=== PATIENT | female | born 1935 | race Caucasian/White ===

== ENCOUNTER → 2019-08-23 14:50 | Outpatient (CLI) | payer MEDICARE, OTHER, SELFPAY ==
[2019-08-23 17:17] LABS: Absolute Lymphocyte Count 1.23 X10^3/uL (0.83-4.51); Absolute Neutrophil Count 5.2 X10^3/uL (2.0-7.7); Basophil# 0.04 X10^3/uL; Basophil% 0.5 % (0-1); Eosinophil# 0.52 X10^3/uL; Eosinophils% 6.6 % (0-5); Hematocrit 33.3 % (37-47); Hemoglobin 10.6 g/dL (12.0-15.0); Lymphocyte # 1.23 X10^3/ul (4.0); Lymphocyte % 15.6 % (19-41); Mean Corp Hgb Conc 31.8 g/dL (32-36); Mean Corpuscular Hgb 27.4 pg (27.0-32.0); Mean Platelet Vol. 9.5 fl (6.2-12.0); Monocyte# 0.87 X10^3/uL; NRBC Flagged by Analyzer 0 % (0-5); Neutrophil # 5.21 X10^3/uL (2.7-7.7); Neutrophil % 65.9 % (47-70); Platelet Count 315 K/mm3 (150-450); RBC Distribution Width CV 13.5 % (11.6-14.6); RBC Distribution Width SD 42.5 fl (35.1-43.9); Red Blood Count 3.87 M/mm3 (4.2-5.4); White Blood Count 7.9 K/mm3 (4.4-11.0)
[2019-08-23 17:46] LABS: ALB/GLOB Ratio 0.6 RATIO (0.9-2.4); AST(SGOT) 19 U/L (15-37); Alanine Aminotransfer ALT/SGPT 22 U/L (13-56); Albumin, Serum 3.1 g/dL (3.2-5.0); Alkaline Phosphatase 136 U/L (45-117); Anion Gap 5 (5-15); BUN 27 mg/dL (7-18); BUN/Creat Ratio 20.5 RATIO (10-20); Calcium,Total 9.5 mg/dL (8.5-10.1); Chloride 104 mmol/L (98-107); Creatinine, Serum 1.32 mg/dL (0.55-1.02); EST Glomerular Filtration Rate 41 mL/min (>60); Est Glom Filt Rate - Afr Amer 49 mL/min (>60); Globulin 4.8 g/dL (2.2-4.2); Glucose 154 mg/dL (74-106); Potassium 3.9 mmol/L (3.5-5.1); Protein, Total 7.9 g/dL (6.4-8.2); Sodium Level 135 mmol/L (136-145); Thyroid Stim Hormone (TSH) 1.24 uIU/mL (0.358-3.74)
[2019-08-23 17:52] LABS: Hemoglobin A1c 8.5 % (4.2-6.3)
[2019-08-23 18:01] LABS: BNP,B-Type NATRIURETIC PEPTIDE 214.5 pg/mL (0-100)
== END ==
PROVIDERS: Family Provider Family Medicine; PCP Family Medicine; Visit Provider Family Medicine
DX: I11.0 Hypertensive heart disease with heart failure (principal); E11.9 Type 2 diabetes mellitus without complications; I50.9 Heart failure, unspecified; I48.0 Paroxysmal atrial fibrillation
CPT/HCPCS: 36415; 80053; 83036; 83880; 84443; 85025

== ENCOUNTER → 2019-09-14 12:34 | Outpatient (CLI) | payer MEDICARE, OTHER, SELFPAY ==
[2019-09-13 14:25] VITALS: BMI 29.4
[2019-09-14 14:52] LABS: AST(SGOT) 14 U/L (15-37); Alanine Aminotransfer ALT/SGPT 18 U/L (13-56); Albumin, Serum 3.5 g/dL (3.2-5.0); Alkaline Phosphatase 131 U/L (45-117); Bilirubin, Direct 0.11 mg/dL (0.00-0.30); Cholesterol 299 mg/dL (200); Globulin 4.3 g/dL (2.2-4.2); High Density Lipoprotein 53 mg/dL; Protein, Total 7.8 g/dL (6.4-8.2); Triglycerides 166 mg/dL; Very Low Density Lipoprotein 33 mg/dL (5-40)
== END ==
PROVIDERS: PCP Family Medicine; Referring Provider Internal Medicine Cardiovascular Disease; Visit Provider Internal Medicine Cardiovascular Disease
DX: I25.10 Atherosclerotic heart disease of native coronary artery without angina pectoris (principal); E78.5 Hyperlipidemia, unspecified
CPT/HCPCS: 36415; 80061; 80076

== ENCOUNTER → 2019-10-03 13:32 | Outpatient (CLI) | payer MEDICARE, OTHER, SELFPAY ==
[2019-09-13 14:25] VITALS: BMI 29.4
--- NOTE | 2019-10-03 13:33 | ECHOD_ITS ---
Reason For Study: TAVR (2017) Procedure This was a 2D Doppler, Color Flow transthoracic echocardiogram. Exam performed in department. Left Ventricle Normal size and thickness. The estimated ejection fraction is 65 %. Septal motion consistent with IVCD. No regional wall motion abnormalities noted. Right Ventricle Normal size and thickness. Normal systolic function. Atria The left atrium is moderately enlarged. Normal right atrium. Normal atrial septum. Mitral Valve Moderate diffuse mitral valve thickening. Mild diffuse mitral valve calcification. Severe mitral annular calcification extending into the posterior leaflet. Moderate mitral valve stenosis. Peak transmitral valve gradient 18 mmHg. Mean transmitral valve gradient 7 mmHg. Mitral valve area. Mild (1+) mitral valve insufficiency. Tricuspid Valve Normal tricuspid valve. Trivial tricuspid valve insufficiency. Right ventricular systolic pressure estimated to be 31 mmHg. Aortic Valve Peak aortic valve gradient 30 mmHg. Mean aortic valve gradient 16 mmHg. Calculated aortic valve area (continuity equation) is 1.8 cm2. Stable appearing bioprosthetic aortic valve apparatus. Pulmonic Valve The pulmonic valve is not well visualized. Great Vessels Calcified aortic root. Normal arch. Normal inferior vena cava. Inferior vena cava collapse with sniff. Pericardium/Pleural No pericardial effusion. MMode/2D Measurements & Calculations LVIDd: 4.6 cm IVSd: 1.1 cm LVOT diam: 2.0 cm LVIDs: 2.6 cm LVPWd: 1.2 cm LVOT area: 3.0 cm2 RVDd: 2.9 cm FS: 44.1 % LA dimension: 4.2 cm LAV(MOD-bp): 55.3 ml LA A4 area: 20.9 cm2 LAV(MOD-bp) Indexed: 32.2 ml/m2 LAV(MOD-sp2): 45.8 ml LAV(MOD-sp4): 61.5 ml RA A4 area: 12.9 cm2 Time Measurements MV dec time: 0.18 sec Doppler Measurements & Calculations MV E max justin: 138.0 cm/sec Lat Peak E' Justin: 6.7 cm/sec Med Peak E' Justin: 3.9 cm/sec MV A max justin: 177.8 cm/sec E/E' lat: 20.6 E/E' med: 35.6 MV E/A: 0.78 MV V2 max: 210.9 cm/sec MV P1/2t max justin: 170.5 cm/sec Ao V2 max: 275.4 cm/sec MV max P.8 mmHg MV P1/2t: 89.0 msec Ao max P.3 mmHg MV V2 mean: 125.2 cm/sec MV dec slope: 561.2 cm/sec2 Ao V2 mean: 189.4 cm/sec MV mean P.3 mmHg Ao mean P.4 mmHg MV V2 VTI: 49.1 cm MVA(P1/2t): 2.5 cm2 Ao V2 VTI: 53.9 cm MVA(VTI): 1.9 cm2 ELLIOT(I,D): 1.8 cm2 ELLIOT(V,D): 1.4 cm2 LV V1 max: 130.8 cm/sec MR max justin: 520.5 cm/sec SV(LVOT): 94.4 ml LV V1 max P.8 mmHg MR max P.4 mmHg LV V1 mean P.9 mmHg LV V1 mean: 91.0 cm/sec LV V1 VTI: 31.0 cm PA V2 max: 90.5 cm/sec TR max justin: 256.6 cm/sec TR max P.3 mmHg Interpretation Summary The estimated ejection fraction is 65 %. The left atrium is moderately enlarged. Moderate mitral valve stenosis. Mitral valve area. Mild (1+) mitral valve insufficiency. Trivial tricuspid valve insufficiency. Right ventricular systolic pressure estimated to be 31 mmHg. Stable appearing and normal functioning bioprosthetic aortic valve apparatus. There is no comparison study available. Ordering Physician: Prem Bashir Referring Physician: Baltazar Saleh Performed By: Blayne Roberts RCS
== END ==
PROVIDERS: PCP Family Medicine; Referring Provider Internal Medicine Cardiovascular Disease; Visit Provider Internal Medicine Cardiovascular Disease
DX: I25.10 Atherosclerotic heart disease of native coronary artery without angina pectoris (principal); I11.0 Hypertensive heart disease with heart failure; I50.30 Unspecified diastolic (congestive) heart failure; I48.0 Paroxysmal atrial fibrillation; E11.59 Type 2 diabetes mellitus with other circulatory complications; Z95.2 Presence of prosthetic heart valve
CPT/HCPCS: 93306

== ENCOUNTER → 2020-09-05 11:47 | Outpatient (CLI) | payer MEDICARE, OTHER, SELFPAY ==
[2020-09-05 11:47] VITALS: BMI 29.4
[2020-09-05 12:43] LABS: Absolute Lymphocyte Count 1.19 X10^3/uL (0.83-4.51); Absolute Neutrophil Count 6.3 X10^3/uL (2.0-7.7); Basophil# 0.06 X10^3/uL; Basophil% 0.7 % (0-1); Eosinophil# 0.18 X10^3/uL; Eosinophils% 2.1 % (0-5); Hematocrit 38.1 % (37-47); Hemoglobin 12.9 g/dL (12.0-15.0); Lymphocyte # 1.19 X10^3/ul (4.0); Lymphocyte % 13.9 % (19-41); Mean Corp Hgb Conc 33.9 g/dL (32-36); Mean Corpuscular Hgb 28.9 pg (27.0-32.0); Mean Corpuscular Volume 85.2 fL (81-99); Mean Platelet Vol. 10.9 fl (6.2-12.0); Monocyte# 0.83 X10^3/uL; Monocyte% 9.7 % (0-10); NRBC Flagged by Analyzer 0 % (0-5); Neutrophil # 6.28 X10^3/uL (2.7-7.7); Neutrophil % 73.2 % (47-70); Platelet Count 214 K/mm3 (150-450); RBC Distribution Width CV 13.5 % (11.6-14.6); RBC Distribution Width SD 41.8 fl (35.1-43.9); Red Blood Count 4.47 M/mm3 (4.2-5.4); White Blood Count 8.6 K/mm3 (4.4-11.0)
[2020-09-05 13:16] LABS: Vitamin B12 > 2000 pg/mL (211-911)
[2020-09-05 13:20] LABS: ALB/GLOB Ratio 0.8 RATIO (0.9-2.4); AST(SGOT) 14 U/L (15-37); Alanine Aminotransfer ALT/SGPT 21 U/L (13-56); Albumin, Serum 3.3 g/dL (3.2-5.0); Alkaline Phosphatase 172 U/L (45-117); Anion Gap 6 (5-15); BUN 35 mg/dL (7-18); BUN/Creat Ratio 25.5 RATIO (10-20); Calcium,Total 9.2 mg/dL (8.5-10.1); Chloride 106 mmol/L (98-107); Creatinine, Serum 1.37 mg/dL (0.55-1.02); EST Glomerular Filtration Rate 39 mL/min (>60); Est Glom Filt Rate - Afr Amer 47 mL/min (>60); Ferritin 187 ng/mL (8-252); Globulin 4.2 g/dL (2.2-4.2); Glucose 244 mg/dL (74-106); Iron 54 ug/dL (50-170); Protein, Total 7.5 g/dL (6.4-8.2); Sodium Level 138 mmol/L (136-145); Thyroid Stim Hormone (TSH) 1.23 uIU/mL (0.358-3.74)
[2020-09-07 14:09] LABS: Alkaline Phosphatase, Serum 152 IU/L (39-117); Bone Fraction 22 % (14-68); Liver Fraction 46 % (18-85)
[2020-09-07 20:42] LABS: Intestinal Fraction 31 % (0-18)
== END ==
PROVIDERS: PCP Family Medicine; Visit Provider Family Medicine
DX: E11.65 Type 2 diabetes mellitus with hyperglycemia (principal); I10 Essential (primary) hypertension; D64.9 Anemia, unspecified; E78.5 Hyperlipidemia, unspecified; R74.8 Abnormal levels of other serum enzymes
CPT/HCPCS: 36415; 80053; 82607; 82728; 83540; 84075; 84080; 84443; 85025

== ENCOUNTER 2021-09-17 12:22 | Inpatient (IN) | payer MEDICARE, OTHER, SELFPAY ==
[2021-09-17] VITALS (8 sets, daily range): BP systolic 143–176; BP diastolic 78–96; PULSE 84–90; RESP 14–20; TEMP 35.9–36.9; O2SAT 93–96; BMI 29.5; BMI 29.0
--- NOTE | 2021-09-17 13:48 | EKG12_ITS ---
Test Reason : CP Blood Pressure : / mmHG Vent. Rate : 088 BPM Atrial Rate : 088 BPM P-R Int : 198 ms QRS Dur : 068 ms QT Int : 376 ms P-R-T Axes : 036 -46 063 degrees QTc Int : 454 ms Normal sinus rhythm Left axis deviation Abnormal ECG Confirmed by DEYA ARMENTA, JANELLE ([id number]), graphic editor SARAH GAVIRIA ([id number]) on 09/19/2021 10:57:40 AM Referred By: JEY/YEIMI Confirmed By:JATIN FALK MD
--- NOTE | 2021-09-17 13:48 | ED.VIS.CHEST ---
HPI History of Present Illness Chief Complaint: Chest Pain Informant: patient Narrative Narrative: 86-year-old female with a history of aortic valve replacement, CHF presenting to the emergency department with chest pain. Patient states that around 10 this morning she developed a pressure in her chest that radiated up to her jaw. She notes that she was short of breath with it. She tried to do her grocery shopping at [employer] but seem to get worse. Since arriving in the emergency department her symptoms have resolved. The patient states that she has had a stress test in the past that was negative but has not had a heart catheterization. In 2017 the patient actually did have a heart catheterization as part of the preoperative work-up for her valve replacement which showed mild luminal irregularities. [facility] Medical History Aortic stenosis Atherosclerosis of coronary artery of [place] heart without angina pectoris Bilateral carotid artery stenosis Chronic kidney disease, stage 3 Chronic venous insufficiency Diabetes mellitus Diastolic CHF Hyperlipidemia Hypertension associated with diabetes Nonrheumatic mitral valve stenosis with insufficiency Paroxysmal atrial fibrillation Renal artery stenosis Home Medications aspirin 81 mg PO DAILY@0800 04/21/17 [History Last Taken 09/17/21] metoprolol tartrate 50 mg PO BID 04/21/17 [History Last Taken 09/17/21] amlodipine 10 mg PO QHS 04/28/17 [History Last Taken 09/16/21] apixaban 2.5 mg tablet 2.5 mg PO BID 09/07/19 [History Last Taken 09/17/21] losartan 50 mg tablet 50 mg PO DAILY 09/07/19 [History Last Taken 09/17/21] furosemide 40 mg PO QHS 09/17/21 [History Last Taken 09/17/21] Allergy/AdvReac Type Severity Reaction Status Date / Time No Known Allergies Allergy Verified 09/17/21 12:24 Family History (Updated 09/17/21 @ 16:04 by Alyssa Quintana MERCHANDISE SUPERVISOR, MERCHANDISE SUPERVISOR-C) Sister Asthma Breast cancer Hypertension Hyperlipidemia Melanoma Father , From old age per patient. Denies specific medical problems. No problems noted. Mother , From old age per patient. Denies specific medical problems. No problems noted. Surgical History History of appendectomy History of left heart catheterization S/P TAVR (transcatheter aortic valve replacement) (05/18/17) Social History (Updated 09/17/21 @ 16:05 by Alyssa Quintana NP, MERCHANDISE SUPERVISOR-C) current gender identity: female Smoking Status: Never smoker alcohol intake: never substance use type: does not use ROS ROS ED Constitutional Constitutional ED: Denies chills, fever(s) or weight loss Eyes Eyes: Denies change in vision or diplopia ENT ENT ED: Denies ear pain, rhinorrhea or sore throat Cardiovascular Cardiovascular: Reports chest pain; Denies orthopnea, palpitations or racing heartbeat Respiratory/Chest Respiratory/Chest: Reports dyspnea; Denies cough or orthopnea Gastrointestinal Gastrointestinal: Denies abdominal pain, diarrhea, nausea or vomiting Genitourinary Genitourinary ED: Denies dysuria, hematuria or urinary frequency Musculoskeletal Musculoskeletal: Reports neck pain; Denies arthralgias or myalgias Integumentary Denies abscess or rash Neurologic Neurologic: Denies headache(s) or weakness Psychiatric Psychiatric: Denies anxiety, depression, suicidal ideation or suicidal thoughts Endocrine Endocrinology: Denies polydipsia, polyphagia or polyuria Allergic/Immunologic Allergic/Immunologic ED: Denies mouth swelling, tongue swelling or urticaria EXAM Physical Exam Const Vital Signs: 09/17/21 12:23 09/17/21 13:59 09/17/21 14:01 Temperature 96.6 F L Temperature Source Temporal Pulse Rate 90 87 Respiratory Rate 20 H 14 Respiratory Effort Normal Non-Labored Blood Pressure 171/78 H 176/91 H Blood Pressure Mean 109 119 Pulse Ox 93 93 Oxygen Delivery Method Room Air Positive well nourished, well developed and obese General Appearance ED: well developed Nutritional Appearance: obese HEENT Reports normocephalic, head/scalp atraumatic, TM's clear and moist mucous membranes normocephalic and atraumatic Tympanic Membrane ED: Yes TM's clear Eyes PERRL and EOMs intact bilaterally Neck no lymphadenopathy, supple and no JVD Resp normal respiratory effort and clear to auscultation bilaterally Cardio regular rate, regular rhythm and no murmurs GI normal to inspection, nondistended, normoactive bowel sounds and non-tender Palpation: soft Back/Spine no CVA tenderness and normal ROM Extremity normal to inspection General Extremety ED: Negative for edema General Extremity: Negative for edema Neuro oriented x3 and CN's II-XII intact bilaterally Sensorium / Orientation: alert Motor Exam: strength 5/5 throughout Psych mental status grossly normal Mood & Affect: Negative for depressed or tearful Skin no rashes or lesions noted and no wounds MDM MDM MDM Narrative Medical decision making narrative: My interpretation of the chest x-ray is mild vascular congestion white count at 8 hemoglobin 12.8 and platelets are 225. BUN of 38 with a creatinine 1.53. Initial high-sensitivity troponin is 89. I spoke with Dr. López from cardiology who recommends a delta troponin and a CTA of the chest. Delta troponin was obtained and is now 672 most likely representing an NSTEMI. CTA of the chest does not demonstrate any pulmonary embolism or dissection. Patient has received aspirin will be placed on a heparin drip. Lab Data Attestation: I reviewed the patient's lab results. Labs: Laboratory Results - last 24 hr 09/17/21 09/17/21 09/17/21 12:30 12:30 14:41 WBC 8.0 RBC 4.51 Hgb 12.5 Hct 38.1 MCV 84.5 MCH 27.7 MCHC 32.8 RDW Std Deviation 43.0 RDW Coeff of Jesi 13.9 Plt Count 225 MPV 10.3 Immature Gran % (Auto) 0.200 Neut % (Auto) 68.2 Lymph % (Auto) 16.7 L [place] % (Auto) 10.2 H Eos % (Auto) 4.2 Baso % (Auto) 0.5 Absolute Neuts (auto) 5.5 Absolute Lymphs (auto) 1.34 Nucleated RBC % 0 Sodium 137 Potassium 3.8 Chloride 106 Carbon Dioxide 22.0 Anion Gap 9 BUN 38 H Creatinine 1.53 H Estim Creat Clear Calc 19.55 Est GFR (MDRD) Af Amer 41 L Est GFR (MDRD) Non-Af 34 L BUN/Creatinine Ratio 24.8 H Glucose 227 H Calcium 8.9 Troponin I High Sens 89 H 672 H* Radiography Diagnostic Testing: Clinical Impression(s) from Imaging Studies Chest X-Ray 09/17/21 14:05 IMPRESSION: Mild degree of vascular congestion. Electronically Signed: Randolph Fallon MD at 14:18 EST , Chest CTA 09/17/21 14:43 IMPRESSION: Prior aortic valve replacement. Mild scarring at the lung bases. No evidence of pleural embolism. Electronically Signed: Randolph Fallon MD at 15:17 EST , EKG Initial EKG: Attestation: I personally reviewed and interpreted this EKG as follows: Comments: Normal sinus rhythm with a ventricular rate of 88 bpm. Follow-up EKG: Attestation: I personally reviewed and interpreted this EKG as follows: Comments: Sinus rhythm with a first-degree AV block with a ventricular rate of 88 bpm. Comparing the T waves on the first EKG to the second it is a little worrisome for hyperacute T waves. Critical Care Time Critical Care Time: Yes Critical care time (excluding procedures): 30-74 minutes (35 min), Including time spent:, Discussing w/Patient &/or Family/Player Development Manager, Discussing w/Consultants, Arranging Admission or Transfer and Performing Direct Patient Care at Bedside Discharge Plan Dx/Rx/DC Orders Clinical Impression: Diabetes mellitus, Hyperlipidemia, S/P TAVR (transcatheter aortic valve replacement), Chronic kidney disease, stage 3, Non-ST elevation LA (NSTEMI) Disposition Disposition: Acute Care [facility]
[2021-09-17 14:00] LABS: Absolute Lymphocyte Count 1.34 X10^3/uL (0.83-4.51); Absolute Neutrophil Count 5.5 X10^3/uL (2.0-7.7); Basophil# 0.04 X10^3/uL; Basophil% 0.5 % (0-1); Eosinophil# 0.34 X10^3/uL; Eosinophils% 4.2 % (0-5); Hematocrit 38.1 % (37-47); Hemoglobin 12.5 g/dL (12.0-15.0); Lymphocyte # 1.34 X10^3/ul (0.83-4.51); Lymphocyte % 16.7 % (19-41); Mean Corp Hgb Conc 32.8 g/dL (32-36); Mean Corpuscular Hgb 27.7 pg (27.0-32.0); Mean Corpuscular Volume 84.5 fL (81-99); Mean Platelet Vol. 10.3 fl (6.2-12.0); Monocyte# 0.82 X10^3/uL; Monocyte% 10.2 % (0-10); NRBC Flagged by Analyzer 0 % (0-5); Neutrophil # 5.46 X10^3/uL (2.7-7.7); Neutrophil % 68.2 % (47-70); Platelet Count 225 K/mm3 (150-450); RBC Distribution Width CV 13.9 % (11.6-14.6); Red Blood Count 4.51 M/mm3 (4.2-5.4)
--- NOTE | 2021-09-17 14:05 | RAD_ITS ---
STUDY: X-RAY CHEST REASON FOR EXAM: Female, 86 years old. Chest pain TECHNIQUE: Single AP portable view of the chest. COMPARISON: Comparison is made with prior study dated 05/01/2017. FINDINGS: EKG electrodes are seen. Mild degree of vascular congestion. There is no demonstrated pleural abnormality. Normal size heart. Normal mediastinum and noble. Normal visualized pulmonary arteries. There is atherosclerotic calcification of the aortic arch with tortuosity. There are diffuse degenerative changes of the visualized thoracic spine. Normal visualized ribs, clavicles, and shoulders. There is no demonstrated abnormality of the visualized soft tissue structures of the upper abdomen. RAD/Chest 1 View (Portable) IMPRESSION: Mild degree of vascular congestion. Electronically Signed: Randolph Fallon MD at 14:18 EST ,
[2021-09-17 14:17] LABS: Anion Gap 9 (5-15); BUN 38 mg/dL (7-18); BUN/Creat Ratio 24.8 RATIO (10-20); Calcium,Total 8.9 mg/dL (8.5-10.1); Chloride 106 mmol/L (98-107); Creatinine, Serum 1.53 mg/dL (0.55-1.02); EST Glomerular Filtration Rate 34 mL/min (>60); Est Glom Filt Rate - Afr Amer 41 mL/min (>60); Estimated Creatinine Clearance 19.55 ml/min; Glucose 227 mg/dL (74-106); Potassium 3.8 mmol/L (3.5-5.1); Sodium Level 137 mmol/L (136-145); Troponin-I HS 89 pg/mL (3.0-54.0)
[2021-09-17] MEDS: Aspirin 325 MG Tablet PO (14:38)
--- NOTE | 2021-09-17 14:43 | CT_ITS ---
STUDY: CTA CHEST REASON FOR EXAM: Female, 86 years old. Pulmonary embolism RADIATION DOSAGE (If Supplied By Facility): CTDIvol = ( 9.475 ) mGy, DLP = ( 330.65 ) mGycm TECHNIQUE: The examination was performed with the intravenous administration of IV 100mL [id number]-[id number]. Post-processing of the angiographic images was performed, with multiplanar reformation and 3D reconstruction. Individualized dose optimization techniques were used for this CT. COMPARISON: Comparison is made with prior study dated 04/21/2017. FINDINGS: Normal enhancement of the main pulmonary artery and right and left pulmonary arteries. Normal enhancement of the bilateral peripheral pulmonary arteries. There is no demonstrated pulmonary embolism. There is atherosclerotic calcification of the aortic arch with tortuosity. There is no demonstrated aortic dissection. Prior aortic valve replacement. There are calcifications of the coronary arteries. There are visualized mediastinal lymph nodes, which are within normal size limits, and with normal morphology. Calcified pretracheal lymph node. There are calcified bilateral hilar lymph nodes. Normal visualized trachea and bronchi. The lungs are well expanded. Mild degree of scarring in the lower lobes. No focal infiltrate is seen. Calcified granulomas in the right. Normal pleura. Normal chest wall structures. There are degenerative changes of thoracic spine. Small hiatal hernia. Calcified splenic granulomas. CT/CTA Chest W/WO Contrast IMPRESSION: Prior aortic valve replacement. Mild scarring at the lung bases. No evidence of pleural embolism. Electronically Signed: Randolph Fallon MD at 15:17 EST ,
[2021-09-17 15:10] LABS: Troponin-I HS 672 pg/mL (3.0-54.0)
--- NOTE | 2021-09-17 15:18 | EKG12_ITS ---
Test Reason : REPEAT Blood Pressure : / mmHG Vent. Rate : 088 BPM Atrial Rate : 088 BPM P-R Int : 212 ms QRS Dur : 068 ms QT Int : 392 ms P-R-T Axes : 023 -42 048 degrees QTc Int : 474 ms Sinus rhythm with 1st degree A-V block Left axis deviation Abnormal ECG Confirmed by DEYA ARMENTA, JANELLE ([id number]), medical editor SARAH GAVIRIA ([id number]) on 09/19/2021 10:57:56 AM Referred By: JEY Confirmed By:JATIN FALK MD
--- NOTE | 2021-09-17 16:00 | PCM.HP.STD ---
Documented by User: Alyssa Quintana NP, PATIENT SERVICES COORDINATOR-C 09/17/21 16:25 HPI - General HPI Narrative PHUC AIKEN, is a 86 F who presents to the emergency room due to chest pain. Patient states her and her were going to the grocery store when she developed chest pain with ambulation. She describes associated shortness of breath. She denies nausea, diaphoresis. She states her symptoms improved with rest however did not dissipate entirely. She denies history of similar symptoms. She states chest pain radiated to her jaw. She denies other associated symptoms or complaints. Upon examination in the emergency room she denies further chest pain. She has a past medical history of type 2 diabetes mellitus, hypertension, paroxysmal atrial fibrillation, hyperlipidemia, aortic stenosis with history of TAVR in 2017, nonobstructive CAD, chronic kidney disease stage IIIb. [facility] Medical History Aortic stenosis Atherosclerosis of coronary artery of [place] heart without angina pectoris Bilateral carotid artery stenosis Chronic kidney disease, stage 3 Chronic venous insufficiency Diabetes mellitus Diastolic CHF Hyperlipidemia Hypertension associated with diabetes Nonrheumatic mitral valve stenosis with insufficiency Paroxysmal atrial fibrillation Renal artery stenosis Home Medications aspirin 81 mg PO DAILY@0800 04/21/17 [History Last Taken 09/17/21] metoprolol tartrate 50 mg PO BID 04/21/17 [History Last Taken 09/17/21] amlodipine 10 mg PO QHS 04/28/17 [History Last Taken 09/16/21] apixaban 2.5 mg tablet 2.5 mg PO BID 09/07/19 [History Last Taken 09/17/21] losartan 50 mg tablet 50 mg PO DAILY 09/07/19 [History Last Taken 09/17/21] furosemide 40 mg PO QHS 09/17/21 [History Last Taken 09/17/21] Allergy/AdvReac Type Severity Reaction Status Date / Time No Known Allergies Allergy Verified 09/17/21 12:24 Family History (Updated 09/17/21 @ 16:04 by Alyssa Quintana NP, PATIENT SERVICES COORDINATOR-C) Sister Asthma Breast cancer Hypertension Hyperlipidemia Melanoma Father , From old age per patient. Denies specific medical problems. No problems noted. Mother , From old age per patient. Denies specific medical problems. No problems noted. Surgical History History of appendectomy History of left heart catheterization S/P TAVR (transcatheter aortic valve replacement) (05/18/17) Social History (Updated 09/17/21 @ 16:05 by Alyssa Quintana NP, PATIENT SERVICES COORDINATOR-C) current gender identity: female Smoking Status: Never smoker alcohol intake: never substance use type: does not use ROS Constitutional Constitutional: Denies change in weight, chills, fatigue, fever(s) or weakness Cardiovascular Cardiovascular: Reports chest pain; Denies edema, lightheadedness, palpitations or syncope Respiratory/Chest Respiratory/Chest: Reports shortness of breath with exertion; Denies cough, dyspnea, productive cough, shortness of breath at rest or wheezing Gastrointestinal Gastrointestinal: Denies abdominal pain, constipation, diarrhea, nausea or vomiting Genitourinary Genitourinary: Denies burning urination, difficulty urinating, dysuria, hematuria, urinary frequency, urinary incontinence or urinary urgency Musculoskeletal Musculoskeletal: Denies back pain, joint pain or muscle weakness Integumentary Integumentary: Denies erythema, lesions, rash or wounds Neurologic Neurologic: Denies abnormal speech, confusion, dizziness, focal weakness, numbness, paresthesias, seizure-like activity or syncope Psychiatric Psychiatric: Denies anxiety or depression Hematologic/Lymphatic Hematologic/Lymphatic: Denies anemia, easy bleeding or easy bruising Allergic/Immunologic Allergic/Immunologic: Denies hives or asthma Vital Signs Vital Signs Vital Signs: 09/17/21 12:23 09/17/21 13:59 09/17/21 14:01 Temperature 96.6 F L Temperature Source Temporal Pulse Rate 90 87 Respiratory Rate 20 H 14 Respiratory Effort Normal Non-Labored Blood Pressure 171/78 H 176/91 H Blood Pressure Mean 109 119 Pulse Ox 93 93 Oxygen Delivery Method Room Air Weight Weight: 156 lb Body Mass Index (BMI) 29.5 Physical Exam Const alert, oriented x3 and no apparent distress Orientation / Consciousness: awake, oriented to person, oriented to place and oriented to time HEENT normocephalic and moist oral mucous membranes Eyes PERRL, EOMs intact bilaterally and conjunctivae normal Neck no lymphadenopathy Resp normal respiratory effort and clear to auscultation bilaterally Cardio regular rate, regular rhythm and no murmurs Peripheral Pulses: pulses 2+ throughout GI normal to inspection, nondistended, normoactive bowel sounds, non-tender and non-distended Extremity normal to inspection Skin no rashes or lesions noted Lesions: no lesions Rashes: no rashes Trauma: no lacerations or abrasions Neuro CN's II-XII intact bilaterally, no focal motor deficits, no sensory deficits noted and deep tendon reflexes 2+ bilaterally Psych mental status grossly normal and affect normal Results Lab / Micro Data Result Diagrams: 09/17/21 12:30 09/17/21 12:30 Labs: Laboratory Results - last 24 hr 09/17/21 12:30: WBC 8.0, RBC 4.51, Hgb 12.5, Hct 38.1, MCV 84.5, MCH 27.7, MCHC 32.8, RDW Std Deviation 43.0, RDW Coeff of Jesi 13.9, Plt Count 225, MPV 10.3, Immature Gran % (Auto) 0.200, Neut % (Auto) 68.2, Lymph % (Auto) 16.7 L, [place] % (Auto) 10.2 H, Eos % (Auto) 4.2, Baso % (Auto) 0.5, Absolute Neuts (auto) 5.5, Absolute Lymphs (auto) 1.34, Nucleated RBC % 0 09/17/21 12:30: Sodium 137, Potassium 3.8, Chloride 106, Carbon Dioxide 22.0, Anion Gap 9, BUN 38 H, Creatinine 1.53 H, Estim Creat Clear Calc 19.55, Est GFR (MDRD) Af Amer 41 L, Est GFR (MDRD) Non-Af 34 L, BUN/Creatinine Ratio 24.8 H, Glucose 227 H, Calcium 8.9, Troponin I High Sens 89 H 09/17/21 14:41: Troponin I High Sens 672 H* Radiology Impression Chest X-Ray 09/17/21 14:05 IMPRESSION: Mild degree of vascular congestion. Electronically Signed: Randolph Fallon MD at 14:18 EST , Chest CTA 09/17/21 14:43 IMPRESSION: Prior aortic valve replacement. Mild scarring at the lung bases. No evidence of pleural embolism. Electronically Signed: Randolph Fallon MD at 15:17 EST , Assessment & Plan Assessment/Plan (1) Non-ST elevation NV (NSTEMI): PLAN: 1. NSTEMI, chest pain-trend enzymes. Heparin drip, aspirin. Hold Eliquis. Continue beta-margo/ARB. Consult cardiology. Obtain echo. 2. Aortic stenosis with history of TAVR in 2017 3. Type 2 diabetes [id number] with sliding scale insulin. Check A1c. 4. Hypertension-elevated on admission. Continue amlodipine, losartan, metoprolol. As needed hydralazine for systolic blood pressure greater than 160. 5. Hyperlipidemia-not on statin. Lipid profile in a.m. 6. Paroxysmal atrial fibrillation-on metoprolol, eliquis. 7. Nonobstructive CAD- per heart cath in 2017. 8. Chronic kidney disease stage IIIb- at baseline, trend BMP. DVT prophylaxis-heparin drip, Eliquis on hold This patient was seen by THEODORA Giordano under the supervision of Dr. Trotter. Time spent examining patient, reviewing data and subsequent management of care: 16 Minutes Documented by User: Dr. Samanta Trotter MD 09/17/21 16:41 HPI - General General Date of Admission: 09/17/21 [facility] Medical History Aortic stenosis Atherosclerosis of coronary artery of [place] heart without angina pectoris Bilateral carotid artery stenosis Chronic kidney disease, stage 3 Chronic venous insufficiency Diabetes mellitus Diastolic CHF Hyperlipidemia Hypertension associated with diabetes Nonrheumatic mitral valve stenosis with insufficiency Paroxysmal atrial fibrillation Renal artery stenosis Home Medications aspirin 81 mg PO DAILY@0800 04/21/17 [History Last Taken 09/17/21] metoprolol tartrate 50 mg PO BID 04/21/17 [History Last Taken 09/17/21] amlodipine 10 mg PO QHS 04/28/17 [History Last Taken 09/16/21] apixaban 2.5 mg tablet 2.5 mg PO BID 09/07/19 [History Last Taken 09/17/21] losartan 50 mg tablet 50 mg PO DAILY 09/07/19 [History Last Taken 09/17/21] furosemide 40 mg PO QHS 09/17/21 [History Last Taken 09/17/21] Allergy/AdvReac Type Severity Reaction Status Date / Time No Known Allergies Allergy Verified 09/17/21 12:24 Family History (Updated 09/17/21 @ 16:04 by Alyssa Quintana NP, PATIENT SERVICES COORDINATOR-C) Sister Asthma Breast cancer Hypertension Hyperlipidemia Melanoma Father , From old age per patient. Denies specific medical problems. No problems noted. Mother , From old age per patient. Denies specific medical problems. No problems noted. Surgical History History of appendectomy History of left heart catheterization S/P TAVR (transcatheter aortic valve replacement) (05/18/17) Social History (Updated 09/17/21 @ 16:05 by Alyssa Quintana NP, PATIENT SERVICES COORDINATOR-C) current gender identity: female Smoking Status: Never smoker alcohol intake: never substance use type: does not use Results Lab / Micro Data Result Diagrams: 09/17/21 12:30 09/17/21 12:30 Charges/Coding Addendum Addendum: This patient was seen in conjunction with Prem Negrete NP. I have independently interviewed and examined the patient and reviewed pertinent historical, laboratory, and other data. I have reviewed her note and concur with her documentation 86-year-old female with past medical history of recent TAVR, chronic heart failure preserved EF, EF 55%, paroxysmal atrial fibrillation, hypertension, type II DM who comes in with complaints of substernal chest discomfort, dull, dull Hypertension today was going grocery shopping. She stated that as soon as she had gone to [facility], she started having chest pain that lasted for a few minutes. It went away and recurred a short while later and made her come to the ED. she denied any diaphoresis or dizziness or palpitation. She admitted to some associated shortness of breath. Her last cardiac cath in 2017 showed minimal luminal irregularities. Patient follows with a test boring crew chief in the [facility]. At the time of being seen, he denied being in pain, no dizziness, palpitations. Physical Exam: Gen: Comfortable, not pale, not jaundiced CVS:HS I +II, regular, no murmurs RESP: Diminished at lung bases with bilateral fine crackles GI: BS present and normal, soft, nontender, no palpable organs EXT:No edema Labs:CBCD is unremarkable, creatinine is 1.53, baseline of 1.3, Troponin is 672. EKG shows normal sinus rhythm, no acute ST-T changes ASSESSMENT: 1. Acute NSTEMI 2. Uncontrolled HTN 3. H/o TAVR 4. Chronic diastolic CHF, EF 65% Plan: I discussed and explained in details the various types of CODE STATUS-full code, DNR CCA, DNR CC. Patient chose to be full code and wants everything done to keep her alive.Time spent discussing CODE STATUS 16 minutes Time spent taking patient's history, physical examination, coordinating patient's care, discussing with nursing, including discussing code status: 55 minutes Visit Charges Inpatient E&M: 37330 Init Hosp L3 Procedures Hospitalists Procedures: 10300 Advncd Care Plan 30 Min
--- NOTE | 2021-09-17 16:16 | ECHOD_ITS ---
Reason For Study: NSTEMI Procedure This was a 2D Doppler, Color Flow transthoracic echocardiogram. Exam performed portable in patient room. Left Ventricle Normal LV size. The estimated ejection fraction is 45 %. Moderate segmental systolic dysfunction (see wall motion). [place] : Akinetic. Mid-anteroseptal : Hypokinetic. Right Ventricle Normal RV size. Normal systolic function. Atria The left atrium is mildly enlarged. Normal right atrium. Mitral Valve There is moderate to severe mitral annular calcification. Moderate (2+) eccentric mitral valve insufficiency. Tricuspid Valve Normal tricuspid valve. Pulmonary artery systolic pressure is 45 mmHg. Aortic Valve Peak aortic valve gradient 16 mmHg. Mean aortic valve gradient 9 mmHg. Bioprosthetic aortic valve. Small echo-free space noted in the sinus of Valsalva outside of the bioprosthetic valve struts. Pericardium/Pleural No pericardial effusion. MMode/2D Measurements & Calculations LVIDd: 4.3 cm IVSd: 1.0 cm LVOT diam: 1.8 cm LVIDs: 2.6 cm LVPWd: 1.1 cm LVOT area: 2.6 cm2 RVDd: 2.8 cm FS: 38.6 % Ao root diam: 3.7 cm LAV(MOD-bp): 71.7 ml LVAd ap4: 23.4 cm2 LAV(MOD-bp) Indexed: 42.2 ml/m2 LVLd ap4: 7.0 cm LAV(MOD-sp2): 64.7 ml EDV(MOD-sp4): 63.8 ml LAV(MOD-sp4): 72.3 ml EDV(sp4-el): 66.2 ml LVAs ap4: 15.0 cm2 LVLs ap4: 6.1 cm ESV(MOD-sp4): 29.1 ml ESV(sp4-el): 31.3 ml EF(MOD-sp4): 54.3 % EF(sp4-el): 52.7 % SV(MOD-sp4): 34.6 ml SV(sp4-el): 34.9 ml LVAd ap2: 19.7 cm2 LVLd ap2: 6.9 cm EDV(MOD-sp2): 46.6 ml EDV(sp2-el): 47.6 ml LA dimension(2D): 3.9 cm LA A4 area: 22.0 cm2 RA A4 area: 15.6 cm2 Doppler Measurements & Calculations MV E max justin: 194.0 cm/sec Lat Peak E' Justin: 3.0 cm/sec Med Peak E' Justin: 2.9 cm/sec MV A max justin: 112.1 cm/sec E/E' lat: 63.9 E/E' med: 66.8 MV E/A: 1.7 MV V2 max: 216.6 cm/sec Ao V2 max: 194.4 cm/sec LV V1 max: 103.9 cm/sec MV max P.8 mmHg Ao max P.5 mmHg LV V1 max P.4 mmHg MV V2 mean: 130.0 cm/sec Ao V2 mean: 135.7 cm/sec LV V1 mean P.3 mmHg MV mean P.4 mmHg Ao mean P.0 mmHg LV V1 mean: 71.3 cm/sec MV V2 VTI: 58.5 cm Ao V2 VTI: 44.3 cm LV V1 VTI: 23.8 cm MVA(VTI): 1.0 cm2 ELLIOT(I,D): 1.4 cm2 ELLIOT(V,D): 1.4 cm2 SV(LVOT): 61.4 ml PA V2 max: 88.4 cm/sec TR max justin: 318.1 cm/sec TR max P.5 mmHg MV P1/2t-pr_phl: 113.1 msec ECHO/Echo Complete Interpretation Summary Normal LV size. The estimated ejection fraction is 45 %. Moderate segmental systolic dysfunction (see wall motion). There is moderate to severe mitral annular calcification. Moderate (2+) eccentric mitral valve insufficiency. Bioprosthetic aortic valve. Small echo-free space noted in the sinus of Valsalva outside of the bioprosthet ic valve struts. Ordering Physician: Alyssa Quintana Referring Physician: JESSICA FONSECA Performed By: Evelyne Pedraza, RDCS, RVT
--- NOTE | 2021-09-17 16:20 | CASEMGMT ---
BROWN CM to room to meet with patient for initial transition planning/care coordination assessment. BROWN SUMMERS introduced self and role at [facility]. Patient voices understanding and consents to assessment at this time. Patient's Martínez present at bedside. Patient is alert and oriented and answers all questions appropriately, sitting up on ER cart in no apparent distress. Care providers, pharmacy, and demographics verified/updated at this time. Admitting Dx: NSTEMI PCP: Baltazar Saleh Specialists: Alfreda- cardiology ([facility]) Preferred Pharmacy: [facility] Insurance: MCR A/B & [employer] Prescription Benefit: yes Living Will/HPOA: Patient denies having a living will or HPOA. LNOK: Martínez Morton and son Chris Figueroa Living Arrangements: Patient lives with in two story house with 10-12 steps to enter the home. Patient states independent with ADLs prior to hospitalization. Smoking/ETOH: Never smoker, denies ETOH use Transportation: Patient drives self and denies transportation concerns. DME/HHC/SNF: Patient typically ambulates independently without the use of an assistive device. Patient has a walker, cane and glucometer with testing supplies available in the home. Denies need for other DME at this time. Denies previous HHC or SNF stays. Patient takes Rx Eliquis prior to hospital admission. Patient has no concerns with going home at time of discharge. CM to follow for any discharge planning/needs. Patient voices no concerns/needs at this time. Advised patient to ask for CM if any questions/concerns/needs arise. Voices understanding. Plan: home
--- NOTE | 2021-09-17 16:20 | EKG12_ITS ---
Test Reason : Blood Pressure : / mmHG Vent. Rate : 074 BPM Atrial Rate : 074 BPM P-R Int : 194 ms QRS Dur : 076 ms QT Int : 422 ms P-R-T Axes : 044 -43 081 degrees QTc Int : 468 ms Normal sinus rhythm Left axis deviation Nonspecific T wave abnormality Abnormal ECG When compared with ECG of 17-SEP-2021 17:09, MANUAL COMPARISON REQUIRED, DATA IS UNCONFIRMED Confirmed by DEYA ARMENTA, JANELLE ([id number]), telegraph editor SARAH GAVIRIA ([id number]) on 09/19/2021 11:22:16 AM Referred By: SHERMAN Confirmed By:JATIN FALK MD
[2021-09-17 16:37] LABS: International Normalized Ratio 1.1
[2021-09-17 16:38] LABS: Partial Thromboplast Time 34.5 Seconds (24.1-36.2)
[2021-09-17] MEDS: Heparin Injection (Vial) 5,000 UNIT/ML VIAL 4500 UNIT IV (16:56)
[2021-09-17] MEDS: HEPARIN/D5w 25,000 UNITS 25,000 UNITS/250 ML IV.SOLN. 10 UNITS IV (16:56)
[2021-09-17 17:05] LABS: Hemoglobin A1c 8.2 % (3.8-5.6)
[2021-09-17 18:26] LABS: Bedside Glucose 170 mg/dL (70-110)
[2021-09-17] MEDS: 0.9% Normal Saline 1,000 ML 60 ML IV (18:27)
[2021-09-17] MEDS: Insulin Lispro 100 UNIT/ML INSULN.PEN SC (18:29)
--- NOTE | 2021-09-17 18:37 | PCM.CONS.C ---
Assessment & Plan Assessment/Plan (1) Non-ST elevation [place] (NSTEMI): PLAN: She presents with chest discomfort which is rather concerning and is noted to have cardiac enzymes suggestive of a non-ST elevation myocardial infarction. My recommendation would be for her to undergo a left heart catheterization in a.m. and depending on the findings further recommendations will be made. In the meantime she was started on an aspirin High intensity statin Beta-margo She was started on heparin which will be discontinued prior to the cardiac catheterization (2) S/P TAVR (transcatheter aortic valve replacement): PLAN: She is status post TAVR. At this will be evaluated with an echocardiographic evaluation. (3) Paroxysmal atrial fibrillation: PLAN: Not appear that she has had any recurrences of the atrial fibrillation. We will however continue to monitor her during the admission. HPI Consult Data Date of Consult: 09/17/21 HPI Narrative HPI Narrative: PHUC AIKEN, is a 86 F who presented to the emergency room with chest discomfort described as a heaviness. She said that she was going to the grocery store with her when she developed this chest discomfort which radiated to both sides of her jaw. It seemed to ease a little bit and then when she started ambulating again it started. There was also associated shortness of breath. She denies any nausea or diaphoresis near syncope or syncope. Due to the presence of the chest discomfort as well as the continuation she decided to present to the emergency room. In the emergency room she was noted to be hypertensive, there were no EKG changes but her cardiac enzymes did come back as abnormal. She had previously undergone a cardiac catheterization in 2017 demonstrating minimal coronary artery disease and a history of TAVR in 2017 at the [facility]. Her other medical history is significant for hypertension, diabetes mellitus, paroxysmal atrial fibrillation, chronic renal dysfunction. Due to chest pain. Patient states her and her were going to the grocery store when she developed chest pain with ambulation. She describes associated shortness of breath. She denies nausea, diaphoresis. At this particular time she is free of any chest discomfort. [facility] Medical History Aortic stenosis Atherosclerosis of coronary artery of [place] heart without angina pectoris Bilateral carotid artery stenosis Chronic kidney disease, stage 3 Chronic venous insufficiency Diabetes mellitus Diastolic CHF Hyperlipidemia Hypertension associated with diabetes Nonrheumatic mitral valve stenosis with insufficiency Paroxysmal atrial fibrillation Renal artery stenosis Home Medications aspirin 81 mg PO DAILY@0800 04/21/17 [History Last Taken 09/17/21] metoprolol tartrate 50 mg PO BID 04/21/17 [History Last Taken 09/17/21] amlodipine 10 mg PO QHS 04/28/17 [History Last Taken 09/16/21] apixaban 2.5 mg tablet 2.5 mg PO BID 09/07/19 [History Last Taken 09/17/21] losartan 50 mg tablet 50 mg PO DAILY 09/07/19 [History Last Taken 09/17/21] furosemide 40 mg PO QHS 09/17/21 [History Last Taken 09/17/21] Allergy/AdvReac Type Severity Reaction Status Date / Time No Known Allergies Allergy Verified 09/17/21 12:24 Family History Sister Asthma Breast cancer Hypertension Hyperlipidemia Melanoma Father , From old age per patient. Denies specific medical problems. No problems noted. Mother , From old age per patient. Denies specific medical problems. No problems noted. Surgical History History of appendectomy History of left heart catheterization S/P TAVR (transcatheter aortic valve replacement) (05/18/17) Social History Smoking Status: Never smoker alcohol intake: never substance use type: does not use ROS Constitutional Constitutional: Denies fever(s) or weight loss Eyes Eyes: Reports systems reviewed and no addt'l complaints, except as documented ENT HEENT: Reports systems reviewed and no addt'l complaints, except as documented Cardiovascular Cardiovascular: Reports chest pain at rest, chest pain with activity and dyspnea on exertion; Denies dyspnea at rest, edema, palpitations or paroxysmal nocturnal dyspnea Respiratory/Chest Respiratory/Chest: Denies dyspnea on exertion, productive cough, shortness of breath at rest or shortness of breath with exertion Gastrointestinal Gastrointestinal: Denies change in bowel habits, nausea, vomiting or weight changes Genitourinary Genitourinary: Denies difficulty urinating Musculoskeletal Musculoskeletal: Denies joint stiffness or muscle weakness Integumentary Integumentary: Denies lesions Neurologic Neurologic: Denies dizziness or syncope Psychiatric Psychiatric: Denies anxiety Endocrine Endocrinology: Denies excessive sweating or fatigue Hematologic/Lymphatic Hematologic/Lymphatic: Denies anemia Allergic/Immunologic Allergic/Immunologic: Denies seasonal rhinorrhea Physical Exam Const alert, oriented x3 and no apparent distress General Appearance: cooperative HEENT hearing grossly normal bilaterally Head and Scalp: atraumatic Eyes EOMs intact bilaterally Neck General: normal visual inspection Chest inspection of chest normal and palpation of chest normal Resp normal respiratory effort Auscultation: clear to auscultation bilaterally Cardio regular rate, regular rhythm, S1 normal heart sound and S2 normal heart sound Jugular Venous Distention: JVD Heart Sounds: murmur GI normal to inspection, nondistended, normoactive bowel sounds Extremity normal capillary refill and no pedal edema Peripheral Pulses: Yes pulses 2+ throughout and femoral pulses present Skin no rashes or lesions noted Neuro oriented x3 and CN's II-XII intact bilaterally Psych Appearance: grossly normal and appropriate Risk Stratification Risk Stratification Applicable: Yes Age >/= 65: Yes >/= 3 CAD Risk Factors (HTN, HLD, DM, family hx of CAD, or current smoker): Yes Aspirin Use in the Past 7 Days: Yes Severe Angina (>/= episodes in 24 hours): Yes EKG ST Changes >/= 0.5mm: No Positive Cardiac Marker: Yes JORDEN Risk Stratification Score: 5 JORDEN % Risk: 25% Risk Objective Data Vital Signs: Vital Signs Temp Pulse Resp BP Pulse Ox 98.4 F 88 16 175/96 H 96 09/17/21 17:48 09/17/21 17:48 09/17/21 17:48 09/17/21 17:48 09/17/21 17:48 Oxygen Delivery Method Room Air Weight: 154 lb 1.65 oz Body Mass Index (BMI) 29.0 Lab / Micro Data Result Diagrams: 09/17/21 12:30 09/17/21 12:30 Labs: Laboratory Results - last 24 hr 09/17/21 12:30: WBC 8.0, RBC 4.51, Hgb 12.5, Hct 38.1, MCV 84.5, MCH 27.7, MCHC 32.8, RDW Std Deviation 43.0, RDW Coeff of Jesi 13.9, Plt Count 225, MPV 10.3, Immature Gran % (Auto) 0.200, Neut % (Auto) 68.2, Lymph % (Auto) 16.7 L, [place] % (Auto) 10.2 H, Eos % (Auto) 4.2, Baso % (Auto) 0.5, Absolute Neuts (auto) 5.5, Absolute Lymphs (auto) 1.34, Nucleated RBC % 0 09/17/21 12:30: Sodium 137, Potassium 3.8, Chloride 106, Carbon Dioxide 22.0, Anion Gap 9, BUN 38 H, Creatinine 1.53 H, Estim Creat Clear Calc 19.55, Est GFR (MDRD) Af Amer 41 L, Est GFR (MDRD) Non-Af 34 L, BUN/Creatinine Ratio 24.8 H, Glucose 227 H, Calcium 8.9, Troponin I High Sens 89 H 09/17/21 12:30: PT 14.0, INR 1.1, APTT 34.5 09/17/21 12:30: Hemoglobin A1c 8.2 H 09/17/21 14:41: Troponin I High Sens 672 H* 09/17/21 18:16: POC Glucose 170 H Cardiology Labs/Tests 09/17/21 12:30: WBC 8.0, RBC 4.51, Hgb 12.5, Hct 38.1, MCV 84.5, MCH 27.7, MCHC 32.8, Plt Count 225, MPV 10.3, Immature Gran % (Auto) 0.200, Neut % (Auto) 68.2, Lymph % (Auto) 16.7 L, [place] % (Auto) 10.2 H, Eos % (Auto) 4.2, Baso % (Auto) 0.5, Absolute Neuts (auto) 5.5, Nucleated RBC % 0 09/17/21 12:30: Sodium 137, Potassium 3.8, Chloride 106, Carbon Dioxide 22.0, Anion Gap 9, BUN 38 H, Creatinine 1.53 H, Est GFR (MDRD) Af Amer 41 L, Est GFR (MDRD) Non-Af 34 L, BUN/Creatinine Ratio 24.8 H, Glucose 227 H, Calcium 8.9 09/17/21 12:30: PT 14.0, INR 1.1, APTT 34.5 09/17/21 12:30: Hemoglobin A1c 8.2 H Rhythm: EKG: Normal sinus rhythm with no acute changes ECHO: Stress Test: Cardiac Cath: PCI: CT Surgery: Holter monitor: EPS: PPM: CXR: Chest CT Scan: Radiography Diagnostic Testing: Radiology Impression Chest X-Ray 09/17/21 14:05 IMPRESSION: Mild degree of vascular congestion. Electronically Signed: Randolph Fallon MD at 14:18 EST , Chest CTA 09/17/21 14:43 IMPRESSION: Prior aortic valve replacement. Mild scarring at the lung bases. No evidence of pleural embolism. Electronically Signed: Randolph Fallon MD at 15:17 EST ,
--- NOTE | 2021-09-17 19:47 | PCS.PANDOC ---
PANDEMIC DOCUMENTATION INITIATED: Date: 04/01/2021 Time: 190
[2021-09-17 20:20] LABS: Troponin-I HS 5301 pg/mL (3.0-54.0)
[2021-09-17] MEDS: Metoprolol Tartrate 100 MG Tablet PO (21:42)
[2021-09-17 21:46] LABS: Bedside Glucose 127 mg/dL (70-110)
[2021-09-18] VITALS (20 sets, daily range): BP systolic 147–162; BP diastolic 66–76; PULSE 64–86; RESP 14–21; TEMP 36.4–36.8; O2SAT 91–97
--- NOTE | 2021-09-18 05:55 | EKG12_ITS ---
Test Reason : PCI Blood Pressure : / mmHG Vent. Rate : 070 BPM Atrial Rate : 070 BPM P-R Int : 200 ms QRS Dur : 068 ms QT Int : 452 ms P-R-T Axes : 035 -46 057 degrees QTc Int : 488 ms Normal sinus rhythm Left axis deviation ST & T wave abnormality, consider lateral ischemia Prolonged QT Abnormal ECG When compared with ECG of 18-SEP-2021 06:50, MANUAL COMPARISON REQUIRED, DATA IS UNCONFIRMED Confirmed by DEYA ARMENTA, JANELLE ([id number]), news videotape editor SARAH GAVIRIA ([id number]) on 09/19/2021 11:20:04 AM Referred By: ELVA Confirmed By:JATIN FALK MD
[2021-09-18] MEDS: Metoprolol Tartrate 100 MG Tablet PO ×2 (06:44→21:40)
[2021-09-18] MEDS: Losartan Potassium 50 MG Tablet PO (06:45)
[2021-09-18] MEDS: amLODIPine 10 MG Tablet PO (06:45)
[2021-09-18 06:46] LABS: Absolute Lymphocyte Count 1.45 X10^3/uL (0.83-4.51); Absolute Neutrophil Count 4.1 X10^3/uL (2.0-7.7); Basophil# 0.03 X10^3/uL; Basophil% 0.4 % (0-1); Eosinophils% 4.5 % (0-5); Hematocrit 35.4 % (37-47); Hemoglobin 12.2 g/dL (12.0-15.0); Lymphocyte # 1.45 X10^3/ul (0.83-4.51); Lymphocyte % 21.6 % (19-41); Mean Corp Hgb Conc 34.5 g/dL (32-36); Mean Corpuscular Hgb 29.3 pg (27.0-32.0); Mean Corpuscular Volume 85.1 fL (81-99); Mean Platelet Vol. 9.9 fl (6.2-12.0); Monocyte# 0.81 X10^3/uL; Monocyte% 12.1 % (0-10); NRBC Flagged by Analyzer 0 % (0-5); Neutrophil # 4.11 X10^3/uL (2.7-7.7); Neutrophil % 61.1 % (47-70); Platelet Count 202 K/mm3 (150-450); RBC Distribution Width CV 13.9 % (11.6-14.6); Red Blood Count 4.16 M/mm3 (4.2-5.4); White Blood Count 6.7 K/mm3 (4.4-11.0)
[2021-09-18] MEDS: Aspirin 81 MG TAB.CHEW PO (06:46)
[2021-09-18 06:50] LABS: Bedside Glucose 93 mg/dL (70-110)
[2021-09-18 07:01] LABS: ALB/GLOB Ratio 0.7 RATIO (0.9-2.4); AST(SGOT) 38 U/L (15-37); Alanine Aminotransfer ALT/SGPT 17 U/L (13-56); Albumin, Serum 2.6 g/dL (3.2-5.0); Alkaline Phosphatase 114 U/L (45-117); Anion Gap 4 (5-15); BUN 31 mg/dL (7-18); BUN/Creat Ratio 26.5 RATIO (10-20); Calcium,Total 8.3 mg/dL (8.5-10.1); Chloride 110 mmol/L (98-107); Cholesterol 303 mg/dL (200); Creatinine, Serum 1.17 mg/dL (0.55-1.02); EST Glomerular Filtration Rate 47 mL/min (>60); Est Glom Filt Rate - Afr Amer 56 mL/min (>60); Estimated Creatinine Clearance 25.56 ml/min; Globulin 3.8 g/dL (2.2-4.2); Glucose 102 mg/dL (74-106); High Density Lipoprotein 58 mg/dL; Potassium 3.3 mmol/L (3.5-5.1); Protein, Total 6.4 g/dL (6.4-8.2); Sodium Level 139 mmol/L (136-145); Triglycerides 174 mg/dL; Very Low Density Lipoprotein 35 mg/dL (5-40)
--- NOTE | 2021-09-18 07:56 | NURSING ---
Called report to Shanna DASILVA in [facility] lab worker
[2021-09-18] MEDS: Potassium Chloride Oral Tablet 20 MEQ 40 MEQ PO (08:15)
--- NOTE | 2021-09-18 09:22 | PCM.PN.CARD ---
Subjective Subjective Patient's seen and evaluated. Objective Data Vital Signs: Vital Signs Temp Pulse Resp BP Pulse Ox 98.0 F 70 18 160/67 H 91 09/18/21 07:33 09/18/21 07:33 09/18/21 07:33 09/18/21 07:33 09/18/21 07:43 Oxygen Delivery Method Room Air Weight: 154 lb 1.65 oz Body Mass Index (BMI) 29.0 Intake & Output: Intake and Output for Last 24 Hours 09/16/21 09/17/21 09/18/21 23:59 23:59 23:59 Intake Total 169.33 / 169.33 840.38 / 840.38 Balance 169.33 / 169.33 840.38 / 840.38 Lab / Micro Data Result Diagrams: 09/18/21 06:38 09/18/21 06:38 Labs: Laboratory Results - last 24 hr 09/17/21 12:30: WBC 8.0, RBC 4.51, Hgb 12.5, Hct 38.1, MCV 84.5, MCH 27.7, MCHC 32.8, RDW Std Deviation 43.0, RDW Coeff of Jesi 13.9, Plt Count 225, MPV 10.3, Immature Gran % (Auto) 0.200, Neut % (Auto) 68.2, Lymph % (Auto) 16.7 L, [place] % (Auto) 10.2 H, Eos % (Auto) 4.2, Baso % (Auto) 0.5, Absolute Neuts (auto) 5.5, Absolute Lymphs (auto) 1.34, Nucleated RBC % 0 09/17/21 12:30: Sodium 137, Potassium 3.8, Chloride 106, Carbon Dioxide 22.0, Anion Gap 9, BUN 38 H, Creatinine 1.53 H, Estim Creat Clear Calc 19.55, Est GFR (MDRD) Af Amer 41 L, Est GFR (MDRD) Non-Af 34 L, BUN/Creatinine Ratio 24.8 H, Glucose 227 H, Calcium 8.9, Troponin I High Sens 89 H 09/17/21 12:30: PT 14.0, INR 1.1, APTT 34.5 09/17/21 12:30: Hemoglobin A1c 8.2 H 09/17/21 14:41: Troponin I High Sens 672 H* 09/17/21 18:16: POC Glucose 170 H 09/17/21 18:35: Troponin I High Sens 5301 H* 09/17/21 21:41: POC Glucose 127 H 09/17/21 23:00: APTT 220.0 H* 09/18/21 06:38: WBC 6.7, RBC 4.16 L, Hgb 12.2, Hct 35.4 L, MCV 85.1, MCH 29.3, MCHC 34.5 D, RDW Std Deviation 43.0, RDW Coeff of Jesi 13.9, Plt Count 202, MPV 9.9, Immature Gran % (Auto) 0.300, Neut % (Auto) 61.1, Lymph % (Auto) 21.6, Ro[place] % (Auto) 12.1 H, Eos % (Auto) 4.5, Baso % (Auto) 0.4, Absolute Neuts (auto) 4.1, Absolute Lymphs (auto) 1.45, Nucleated RBC % 0 09/18/21 06:38: Sodium 139, Potassium 3.3 L, Chloride 110 H, Carbon Dioxide 25.0, Anion Gap 4 L, BUN 31 H, Creatinine 1.17 H, Estim Creat Clear Calc 25.56, Est GFR (MDRD) Af Amer 56 L, Est GFR (MDRD) Non-Af 47 L, BUN/Creatinine Ratio 26.5 H, Glucose 102, Calcium 8.3 L, Total Bilirubin 0.40, AST 38 H, ALT 17, Alkaline Phosphatase 114, Total Protein 6.4, Albumin 2.6 L, Globulin 3.8, Albumin/Globulin Ratio 0.7 L, Triglycerides 174, Cholesterol 303 H, LDL Cholesterol 210 H, VLDL Cholesterol 35, HDL Cholesterol 58 09/18/21 06:40: POC Glucose 93 Cardiology Labs/Tests 09/17/21 12:30: WBC 8.0, RBC 4.51, Hgb 12.5, Hct 38.1, MCV 84.5, MCH 27.7, MCHC 32.8, Plt Count 225, MPV 10.3, Immature Gran % (Auto) 0.200, Neut % (Auto) 68.2, Lymph % (Auto) 16.7 L, [place] % (Auto) 10.2 H, Eos % (Auto) 4.2, Baso % (Auto) 0.5, Absolute Neuts (auto) 5.5, Nucleated RBC % 0 09/17/21 12:30: Sodium 137, Potassium 3.8, Chloride 106, Carbon Dioxide 22.0, Anion Gap 9, BUN 38 H, Creatinine 1.53 H, Est GFR (MDRD) Af Amer 41 L, Est GFR (MDRD) Non-Af 34 L, BUN/Creatinine Ratio 24.8 H, Glucose 227 H, Calcium 8.9 09/17/21 12:30: PT 14.0, INR 1.1, APTT 34.5 09/17/21 12:30: Hemoglobin A1c 8.2 H 09/17/21 23:00: APTT 220.0 H* 09/18/21 06:38: WBC 6.7, RBC 4.16 L, Hgb 12.2, Hct 35.4 L, MCV 85.1, MCH 29.3, MCHC 34.5 D, Plt Count 202, MPV 9.9, Immature Gran % (Auto) 0.300, Neut % (Auto) 61.1, Lymph % (Auto) 21.6, [place] % (Auto) 12.1 H, Eos % (Auto) 4.5, Baso % (Auto) 0.4, Absolute Neuts (auto) 4.1, Nucleated RBC % 0 09/18/21 06:38: Sodium 139, Potassium 3.3 L, Chloride 110 H, Carbon Dioxide 25.0, Anion Gap 4 L, BUN 31 H, Creatinine 1.17 H, Est GFR (MDRD) Af Amer 56 L, Est GFR (MDRD) Non-Af 47 L, BUN/Creatinine Ratio 26.5 H, Glucose 102, Calcium 8.3 L, Total Bilirubin 0.40, Triglycerides 174, Cholesterol 303 H, LDL Cholesterol 210 H, VLDL Cholesterol 35, HDL Cholesterol 58 Rhythm: EKG: ECHO: Stress Test: Cardiac Cath: PCI: CT Surgery: Holter monitor: EPS: PPM: CXR: Chest CT Scan: Radiography Diagnostic Testing: Radiology Impression Chest X-Ray 09/17/21 14:05 IMPRESSION: Mild degree of vascular congestion. Electronically Signed: Randolph Fallon MD at 14:18 EST Reading Location ID and State: [facility] / [place] , Service support , Chest CTA 09/17/21 14:43 IMPRESSION: Prior aortic valve replacement. Mild scarring at the lung bases. No evidence of pleural embolism. Electronically Signed: Randolph Fallon MD at 15:17 EST , Physical Exam Const alert, oriented x3 and no apparent distress General Appearance: cooperative HEENT hearing grossly normal bilaterally Head and Scalp: atraumatic Eyes EOMs intact bilaterally Neck General: normal visual inspection Chest inspection of chest normal and palpation of chest normal Resp normal respiratory effort Auscultation: clear to auscultation bilaterally Cardio regular rate, regular rhythm, S1 normal heart sound and S2 normal heart sound Jugular Venous Distention: JVD GI normal to inspection, nondistended, normoactive bowel sounds Extremity normal capillary refill and no pedal edema Peripheral Pulses: Yes pulses 2+ throughout and femoral pulses present Skin no rashes or lesions noted Neuro oriented x3 and CN's II-XII intact bilaterally Psych Appearance: grossly normal and appropriate Assessment & Plan Assessment/Plan (1) Non-ST elevation [place] (NSTEMI): PLAN: She presents with chest discomfort which is rather concerning and is noted to have cardiac enzymes suggestive of a non-ST elevation myocardial infarction. Cardiac catheterization demonstrated normal left main coronary artery Left anterior descending artery with mid segment long 80% stenosis. First diagonal vessel with ostial 90% stenosis. Left circumflex artery which is small with diffuse mild disease. Large dominant right coronary artery with mild diffuse disease. Based on the above angiographic findings we will consider PCI to the mid left anterior descending artery (2) S/P TAVR (transcatheter aortic valve replacement): PLAN: She is status post TAVR. It appears to be fairly well situated. There is a small echo-free space noted against the wall with flow within but no significant regurgitation. No thrombus is noted within. Valve function however appears to be normal. We will obtain a formal echocardiogram later. (3) Paroxysmal atrial fibrillation: PLAN: Not appear that she has had any recurrences of the atrial fibrillation. We will however continue to monitor her during the admission. If patient undergoes PCI then I would recommend at her age that we discontinue the Eliquis and have her on aspirin and Brilinta only. This is because she would be a high bleeding risk. Thank you for allowing me to participate in the care of your patient. Please don't hesitate to call if any issues arise.
[2021-09-18] MEDS: Insulin Lispro 100 UNIT/ML INSULN.PEN SC ×3 (10:33→21:30)
[2021-09-18 10:41] LABS: Bedside Glucose 169 mg/dL (70-110)
--- NOTE | 2021-09-18 11:00 | EKG12_ITS ---
Test Reason : CP ADMIT Blood Pressure : / mmHG Vent. Rate : 093 BPM Atrial Rate : 093 BPM P-R Int : 196 ms QRS Dur : 066 ms QT Int : 366 ms P-R-T Axes : 017 -42 056 degrees QTc Int : 455 ms Normal sinus rhythm Left axis deviation Abnormal ECG When compared with ECG of 17-SEP-2021 15:28, MANUAL COMPARISON REQUIRED, DATA IS UNCONFIRMED Confirmed by ELVA ARMENTA, NORM ([id number]), photograph editor SARAH GAVIRIA ([id number]) on 09/24/2021 10:56:38 AM Referred By: MARY Confirmed By:NORM STEVENSON MD
--- NOTE | 2021-09-18 11:08 | CL.I_ITS ---
Patient Name: PHUC AIKEN Study Date: 09/18/2021 Performing: Sammie Mullen MD Ht: 61.02 inches 155 cm : 1935 Wt: 154.32 lbs 70 kg Age: 86 Gender: female BSA: 1.69 PROCEDURE(S) PERFORMED [id number])PTCA, SINGLE CORONARY ARTERY CLINICAL PROFILE AND CO-MORBIDITIES Indications: ACS <= 24 hrs Heart Failure: None Stress/Imaging Stress/Image Study Performed: No CAD Presentations: Non-STEMI. Symptom onset Date/Time: Time Not Available CONCLUSIONS Successful PTCA alone to mLAD RECOMMENDATIONS DESCRIPTION OF PROCEDURE The patient arrived to the procedure lab. The risks and benefits of the procedure as well as a full d escription of our services here and current unavailability of surgical backup were fully explained to the patient and/or their significant other prior to the catheterization. The Timeout was completed, verifying the correct patient and procedure. The patient's procedural site was prepped and draped in the usual fashion. Local anesthetic was given subcutaneously to right radial region with Lidocaine 2% Using a modified Seldinger technique,arterial access was obtained via the right radial artery, a 6Fr sheath was inserted. Left Coronary Artery selective angiography was performed in multiple views usin g a 5 Fr. JL3.5 catheter. Right Coronary Artery selective angiography was then performed in multiple views using a 5 Fr. 3DRC (Ti) catheter.The images were reviewed and options discussed. A decisi on was then made to proceed with an Intervention, IVUS or other adjunct procedure. XB 3.0 Guide catheter was inserted and engaged into the LCA. BMW Guide wire was advanced to the L AD. 6fr Guideliner Guide catheter was inserted and engaged into the LCA. Emerge 2.0x15 Balloon cathet er was inserted. PTCA balloon inflated at 8 atms for 8 secs. PTCA balloon inflated at 12 atms for 14 secs. Angiogram performed post balloon dilatation. NC Emerge 2.50x15 Balloon catheter was inserted. P TCA balloon inflated at 12 atms for 11 secs. PTCA balloon inflated at 12 atms for 6 secs. PTCA balloo n inflated at 12 atms for 5 secs. Angiogram performed post balloon dilatation. Orsiro 3.0x22 Drug Elu ting stent was inserted. Drug Eluting stent was removed intact, failed to cross lesion NC Emerge 3.0x 20 Balloon catheter was inserted. PTCA balloon inflated at 12 atms for 13 secs. PTCA balloon inflated at 12 atms for 10 secs. PTCA balloon inflated at 12 atms for 5 secs. PTCA balloon inflated at 12 mitch s for 5 secs. Angiogram performed post balloon dilatation. The arterial sheath was pulled and a TR Band was applied for hemostasis w/ 10ml air INTERVENTION INFORMATION LESION SITE: LAD (Mid) Lesion Complexity: High/C, chronic total occlusion: No, lesion at bifurcation: Yes, thrombus present: No, lesion length: 22 mm, culprit lesion: Yes, Previously treated lesion: No Pre Stenosis: 90 % Pre intervention JORDEN flow: 3 PROCEDURE: Balloon Angioplasty The stent was not getting past the TAVR valve struts. There was acceptable angioplasty results and we felt that further attempts at stent deployment were not warranted at this time as they would increas e the rrisk of complications such as stroke, stent dislodgement etc. Post Stenosis: 55 % Post intervention JORDEN flow: 3 Lesion Devices: Temple .014 BMW [place] Straight 190cm Cardinal 6 Fr XB3.0 100cm Guide Catheter [employer] 6 Indian GuideLiner Garcia Sci EMERGE MR 2.00x15 BALLOON Garcia Sci NC EMERGE MR 2.50x15 BALLOON Garcia Sci NC EMERGE MR 3.00x20 BALLOON COMPLICATIONS No Complications PROCEDURE MEDICATIONS Versed 1 mg IV Fentanyl 50 mcg IV Fentanyl 25 mcg IV Oxygen: 2 L/min via nasal cannula Oxygen: 4 L/min via nasal cannula Brilinta 180 mg PO @ 09/18/2021 09:21:47 Heparin given IA 09/18/2021 08:48:01 Heparin 2000 unit(s) IV 09/18/2021 09:25:39 Potassium Chloride 40 mEq PO 09/18/2021 08:15:20 Verapamil 2.5mg, Ntg 100mcgs, 3000 units of Heparin given IA 09/18/2021 08:48:01 SUMMARY OF HEMODYNAMIC DATA Time AIR REST ECG 08:17:10 AO 120/55 (85) SA 08:49:55 AO 118/56 (80) 08:54:46 AO 130/67 (95) 08:59:11 RM AIR REST 10:18:42 Signed By Sammie Mullen MD On 09/18/2021 11:06:57 Sammie Mullen MD
--- NOTE | 2021-09-18 11:50 | PN.HOSP_ITS ---
Documented by User: Alyssa Quintana NP, [employer] 09/18/21 12:15 Subjective Subjective Patient seen and examined. Underwent heart cath this morning. Patient was noted to have LAD mid segment 80% stenosis and first diagonal vessel ostial 90% stenosis. Reports ongoing mild chest pressure although states this is improved from prior. Objective Data Objective Data Vital Signs: Vital Signs Temp Pulse Resp BP Pulse Ox 98.0 F 65 18 147/71 H 95 09/18/21 07:33 09/18/21 11:45 09/18/21 11:45 09/18/21 11:45 09/18/21 11:45 Oxygen Flow Rate (L/min) 2 Oxygen Delivery Method Nasal Cannula Weight: 154 lb 1.65 oz Body Mass Index (BMI) 29.0 Intake & Output: Intake and Output for Last 24 Hours 09/16/21 09/17/21 09/18/21 23:59 23:59 23:59 Intake Total 169.33 / 169.33 840.38 / 840.38 Balance 169.33 / 169.33 840.38 / 840.38 Lab / Micro Data Result Diagrams: 09/18/21 06:38 09/18/21 06:38 Labs: Laboratory Results - last 24 hr 09/17/21 12:30: WBC 8.0, RBC 4.51, Hgb 12.5, Hct 38.1, MCV 84.5, MCH 27.7, MCHC 32.8, RDW Std Deviation 43.0, RDW Coeff of Jesi 13.9, Plt Count 225, MPV 10.3, Immature Gran % (Auto) 0.200, Neut % (Auto) 68.2, Lymph % (Auto) 16.7 L, Boyle % (Auto) 10.2 H, Eos % (Auto) 4.2, Baso % (Auto) 0.5, Absolute Neuts (auto) 5.5, Absolute Lymphs (auto) 1.34, Nucleated RBC % 0 09/17/21 12:30: Sodium 137, Potassium 3.8, Chloride 106, Carbon Dioxide 22.0, Anion Gap 9, BUN 38 H, Creatinine 1.53 H, Estim Creat Clear Calc 19.55, Est GFR (MDRD) Af Amer 41 L, Est GFR (MDRD) Non-Af 34 L, BUN/Creatinine Ratio 24.8 H, Glucose 227 H, Calcium 8.9, Troponin I High Sens 89 H 09/17/21 12:30: PT 14.0, INR 1.1, APTT 34.5 09/17/21 12:30: Hemoglobin A1c 8.2 H 09/17/21 14:41: Troponin I High Sens 672 H* 09/17/21 18:16: POC Glucose 170 H 09/17/21 18:35: Troponin I High Sens 5301 H* 09/17/21 21:41: POC Glucose 127 H 09/17/21 23:00: APTT 220.0 H* 09/18/21 06:38: WBC 6.7, RBC 4.16 L, Hgb 12.2, Hct 35.4 L, MCV 85.1, MCH 29.3, MCHC 34.5 D, RDW Std Deviation 43.0, RDW Coeff of Jesi 13.9, Plt Count 202, MPV 9.9, Immature Gran % (Auto) 0.300, Neut % (Auto) 61.1, Lymph % (Auto) 21.6, Boyle % (Auto) 12.1 H, Eos % (Auto) 4.5, Baso % (Auto) 0.4, Absolute Neuts (auto) 4.1, Absolute Lymphs (auto) 1.45, Nucleated RBC % 0 09/18/21 06:38: Sodium 139, Potassium 3.3 L, Chloride 110 H, Carbon Dioxide 25.0, Anion Gap 4 L, BUN 31 H, Creatinine 1.17 H, Estim Creat Clear Calc 25.56, Est GFR (MDRD) Af Amer 56 L, Est GFR (MDRD) Non-Af 47 L, BUN/Creatinine Ratio 26.5 H, Glucose 102, Calcium 8.3 L, Total Bilirubin 0.40, AST 38 H, ALT 17, Alkaline Phosphatase 114, Total Protein 6.4, Albumin 2.6 L, Globulin 3.8, Albumin/Globulin Ratio 0.7 L, Triglycerides 174, Cholesterol 303 H, LDL Cholesterol 210 H, VLDL Cholesterol 35, HDL Cholesterol 58 09/18/21 06:40: POC Glucose 93 09/18/21 10:30: POC Glucose 169 H Radiography Diagnostic Testing: Radiology Impression Chest X-Ray 09/17/21 14:05 IMPRESSION: Mild degree of vascular congestion. Electronically Signed: Randolph Fallon MD at 14:18 EST , Chest CTA 09/17/21 14:43 IMPRESSION: Prior aortic valve replacement. Mild scarring at the lung bases. No evidence of pleural embolism. Electronically Signed: Randolph Fallon MD at 15:17 EST , Physical Exam Const alert, oriented x3 and no apparent distress Orientation / Consciousness: awake, oriented to person, oriented to place and oriented to time HEENT normocephalic and moist oral mucous membranes Eyes PERRL, EOMs intact bilaterally and conjunctivae normal Neck no lymphadenopathy Resp normal respiratory effort and clear to auscultation bilaterally Cardio regular rate, regular rhythm and no murmurs Peripheral Pulses: pulses 2+ throughout GI normal to inspection, nondistended, normoactive bowel sounds, non-tender and non-distended Extremity normal to inspection Skin no rashes or lesions noted Lesions: no lesions Rashes: no rashes Trauma: no lacerations or abrasions Neuro CN's II-XII intact bilaterally, no focal motor deficits, no sensory deficits noted and deep tendon reflexes 2+ bilaterally Psych mental status grossly normal and affect normal Assessment & Plan Assessment/Plan (1) Non-ST elevation [place] (NSTEMI): PLAN: 1. NSTEMI, CAD with LAD mid segment along 80% stenosis in first diagonal vessel 90% stenosis-cardiology following. Continue beta-margo/ARB. Aspirin, Brilinta. Eliquis on hold. Echocardiogram pending. Difficult anatomy for PCI placement, possible medical management versus further intervention per cardiology recommendation. 2. Aortic stenosis with history of TAVR in 2017- echo pending as noted above. 3. Type 2 diabetes [id number] with sliding scale insulin. Hemoglobin A1c 8.2%. Does not appear on regimen. Recommend addition of oral regimen at discharge. 4. Hypertension-Continue amlodipine, losartan, metoprolol. As needed hydralazine for systolic blood pressure greater than 160. 5. Hyperlipidemia-not on statin. Lipid profile elevated. Add statin. 6. Paroxysmal atrial fibrillation-on metoprolol, Eliquis on hold. 7. Chronic kidney disease stage IIIb- at baseline, trend BMP. DVT prophylaxis-Eliquis on hold This patient was seen by THEODORA Giordano under the supervision of Dr. Shepherd. Time spent examining patient, reviewing data and subsequent management of care: 11 Minutes Documented by User: Dr. Rico Shepherd MD 09/18/21 12:52 Objective Data Lab / Micro Data Result Diagrams: 09/18/21 06:38 09/18/21 06:38 Charges/Coding Addendum Addendum: Dr. Shepherd: I personally reviewed the chart and examined the patient, and agree with the above findings. 86-year-old female presented to the emergency room secondary to chest pain. She states that they were going to the grocery store with her when she started having the chest pain with ambulation. She does have a history of aortic stenosis status post TAVR as well as nonobstructive CAD. In the ER she was found to have an elevated troponin and was diagnosed with a non- STEMI. Cardiology was consulted and recommended cath in the morning. Cath on 09/18/2021 demonstrated mid LAD lesion, she is status post stent with minimal residual chest pain and feels much improved from admission. In discussion with cardiology hold hold her Eliquis, given her age and will place her on an aspirin and Brilinta. Time spent on all clinical care activities: 18 minutes Visit Charges Inpatient E&M: 07513 Subs Hosp L2
[2021-09-18] MEDS: 0.9% Normal Saline 1,000 ML 60 ML IV (13:48)
--- NOTE | 2021-09-18 13:57 | CRPHASE1_ITS ---
Patient Communication PHII Cardiac Rehab Discussed with Patient:: Yes Guide to Cardiac Rehab Given to Patient:: Yes Cardiac Rehab Facility Choice List Given to Patient:: Yes Choice Program [facility] CR PHII:: Communication Given to CR Choice Program Other:: Communication Given to CR Meter Mechanic:: Miya Mullen Refer Phase II Cardiac Rehab:: Yes Sessions:: 36 sessions - 3 days/wk, 12 weeks Cardiac Rehabilitation Info Cardiac Rehabilitation Program Information: Cardiac Rehabilitation is important for patients like you who are recovering from a heart problem. Cardiac rehabilitation programs are recognized as integral to the continued care of the patient with coronary heart disease. The cardiac rehabilitation program is designed to optimize a patient's physical, psychological, and social functioning. Health resident care provider work in cardiac rehabilitation programs and assist you with getting the treatments you need to get stronger and healthier - like exercise, healthy eating habits, and medications. Cardiac rehabilitation has been show to help people with heart problems live longer and have better life enjoyment than people who do not go to cardiac rehabilitation. Please contact the Cardiac Rehabilitation Program at [facility] at in two weeks if you have not heard from them.
--- NOTE | 2021-09-18 13:57 | CRPH1.INSTRU ---
General Education CAD and cardiac anatomy and function:: Patient communicates acknowledgment Explanation of diagnoses and procedures:: Patient communicates acknowledgment Sign/Symptoms of CA:: Patient communicates acknowledgment Antiplatelet therapy: Patient communicates acknowledgment Smoking Patient Nicotine/Smoking Risk Factors Are:: Never smoked Dyslipidemia Patient Dyslipidemia Risk Factors Are:: Total Cholesterol, Triglycerides, HDL, LDL Recommendations Include:: Lipid profile provided, Reviewed NCEP/ATP guidelines, Therapeutic Lifestyle Change dietary guidelines Dyslipidemia Response Code:: Patient communicates acknowledgment Overweight/Obesity Patient Overweight/Obesity Risk Factors Are:: Overweight = 26-29 Recommendations Include:: Weight loss of 5-10%, Reduced calorie diet, Exercise 5-7 times/week Overweight/Obesity:: Patient communicates acknowledgment Hypertension Recommendations Include:: BP <130/80 if diabetic, DASH dietary guidelines, Decrease/maintain normal body weight, Moderation of ETOH Hypertension:: Patient communicates acknowledgment Diabetes Patient Diabetes Risk Factors Are:: Elevated blood sugars Recommendations Include:: Maintain fasting blood sugars 70-110 md/dL, Maintain HgbA1c of 6% or less, Monitor blood sugar as prescribed, Diabetic dietary guidelines, Decrease/maintain body weight Diabetes:: Patient communicates acknowledgment Sedentary Patient Sedentary Risk Factors Are:: Lack of regular exercise Recommendations Include:: Aerobic exercise 5-7 times/week for 20-30 minutes continuously, Benefits of regular exercise, Discussed home walking program, Monitored Outpatient Cardiac Rehab Sedentary Response Code:: Patient communicates acknowledgment Stress Patient Stress Risk Factors Are:: Patient denies stress as a risk factor
--- NOTE | 2021-09-18 14:05 | CASEMGMT ---
Pt provided with Brilinta one month free trial card and instructions, voices understanding. Pt voices no further questions/concerns/needs. Cristela DASILVA CM
--- NOTE | 2021-09-18 14:33 | CHAPLAIN ---
Type of Pastoral Visit _x__ Initial Visit ___ Follow-up Visit ___ On-call Visit ___ General Patient Visit ___ Spiritual Assessment ___ Family Conference ___ Bereavement ___ Rapid Response ___ Code Blue ___ Other (describe below) Pastoral Care Referral From _x__ Patient ___ Family ___ Nurse ___ Physician ___ Instructional Facilitator ___ Treating Plant Supervisor ___ Other (describe below) Sacrament/Intervention _x__ Active listening ___ Anointing ___ Cheondoism ___ Bereavement ___ Communion ___ Roxane exploration ___ ___ Life review _x__ Prayer ___ Reconciliation ___ Sacrament of Sick _x__ Supportive presence ___ Wedding ___ Other (describe below) Pastoral Comments patient lying down in bed; pt states that she is not quite sure what her condition is and is waiting for more information after tests; spouse is at bedside; pt welcomes prayer and presence; no other needs evident at this time
[2021-09-18 16:41] LABS: Bedside Glucose 167 mg/dL (70-110)
[2021-09-18] MEDS: Atorvastatin Calcium 40 MG Tablet PO (21:29)
[2021-09-18] MEDS: TICAGRELOR 90 MG TABLET PO (21:29)
[2021-09-18 22:31] LABS: Bedside Glucose 208 mg/dL (70-110)
[2021-09-19 03:58] VITALS: PULSE 81
[2021-09-19 05:27] VITALS: BP 151/74; PULSE 77; RESP 16; TEMP 36.8; O2SAT 95
[2021-09-19 06:05] LABS: Hematocrit 36.3 % (37-47); Hemoglobin 11.8 g/dL (12.0-15.0); Mean Corp Hgb Conc 32.5 g/dL (32-36); Mean Corpuscular Hgb 27.6 pg (27.0-32.0); Mean Platelet Vol. 10.4 fl (6.2-12.0); Platelet Count 208 K/mm3 (150-450); RBC Distribution Width CV 14.4 % (11.6-14.6); RBC Distribution Width SD 44.4 fl (35.1-43.9); Red Blood Count 4.27 M/mm3 (4.2-5.4); White Blood Count 10.1 K/mm3 (4.4-11.0)
[2021-09-19 06:24] VITALS: PULSE 82
[2021-09-19 06:26] VITALS: O2SAT 95
[2021-09-19 06:42] LABS: ALB/GLOB Ratio 0.7 RATIO (0.9-2.4); AST(SGOT) 55 U/L (15-37); Alanine Aminotransfer ALT/SGPT 19 U/L (13-56); Albumin, Serum 2.7 g/dL (3.2-5.0); Alkaline Phosphatase 102 U/L (45-117); Anion Gap 7 (5-15); BUN 31 mg/dL (7-18); BUN/Creat Ratio 23.3 RATIO (10-20); Calcium,Total 8.7 mg/dL (8.5-10.1); Chloride 108 mmol/L (98-107); Creatinine, Serum 1.33 mg/dL (0.55-1.02); EST Glomerular Filtration Rate 40 mL/min (>60); Est Glom Filt Rate - Afr Amer 49 mL/min (>60); Estimated Creatinine Clearance 22.49 ml/min; Globulin 3.7 g/dL (2.2-4.2); Glucose 184 mg/dL (74-106); Protein, Total 6.4 g/dL (6.4-8.2); Sodium Level 137 mmol/L (136-145)
[2021-09-19] MEDS: Insulin Lispro 100 UNIT/ML INSULN.PEN SC (06:48)
[2021-09-19 06:55] LABS: Bedside Glucose 189 mg/dL (70-110)
--- NOTE | 2021-09-19 09:28 | PN.CARD_ITS ---
Subjective Subjective Patient seen and evaluated for appears to be doing well. Objective Data Vital Signs: Vital Signs Temp Pulse Resp BP Pulse Ox 98.2 F 82 16 151/74 H 95 09/19/21 05:27 09/19/21 06:24 09/19/21 05:27 09/19/21 05:27 09/19/21 06:26 Oxygen Flow Rate (L/min) 2 Oxygen Delivery Method Room Air Weight: 154 lb 1.65 oz Body Mass Index (BMI) 29.0 Intake & Output: Intake and Output for Last 24 Hours 09/17/21 09/18/21 09/19/21 23:59 23:59 23:59 Intake Total 169.33 / 169.33 1942.38 / 1941.38 Output Total 50 / 50 Balance 169.33 / 169.33 1942.38 / 194.38 -50 / -50 Lab / Micro Data Result Diagrams: 09/19/21 04:46 09/19/21 04:46 Labs: Laboratory Results - last 24 hr 09/18/21 10:30: POC Glucose 169 H 09/18/21 16:34: POC Glucose 167 H 09/18/21 21:26: POC Glucose 208 H 09/19/21 04:46: WBC 10.1, RBC 4.27, Hgb 11.8 L, Hct 36.3 L, MCV 85.0, MCH 27.6, MCHC 32.5 D, RDW Std Deviation 44.4 H, RDW Coeff of Jesi 14.4, Plt Count 208, MPV 10.4 09/19/21 04:46: Sodium 137, Potassium 4.0, Chloride 108 H, Carbon Dioxide 22.0, Anion Gap 7, BUN 31 H, Creatinine 1.33 H, Estim Creat Clear Calc 22.49, Est GFR (MDRD) Af Amer 49 L, Est GFR (MDRD) Non-Af 40 L, BUN/Creatinine Ratio 23.3 H, Glucose 184 H, Calcium 8.7, Total Bilirubin 0.60, AST 55 H, ALT 19, Alkaline Phosphatase 102, Total Protein 6.4, Albumin 2.7 L, Globulin 3.7, Albumin/Globulin Ratio 0.7 L 09/19/21 06:47: POC Glucose 189 H Cardiology Labs/Tests 09/19/21 04:46: WBC 10.1, RBC 4.27, Hgb 11.8 L, Hct 36.3 L, MCV 85.0, MCH 27.6, MCHC 32.5 D, Plt Count 208, MPV 10.4 09/19/21 04:46: Sodium 137, Potassium 4.0, Chloride 108 H, Carbon Dioxide 22.0, Anion Gap 7, BUN 31 H, Creatinine 1.33 H, Est GFR (MDRD) Af Amer 49 L, Est GFR (MDRD) Non-Af 40 L, BUN/Creatinine Ratio 23.3 H, Glucose 184 H, Calcium 8.7, Total Bilirubin 0.60 Rhythm: EKG: ECHO: Stress Test: Cardiac Cath: PCI: CT Surgery: Holter monitor: EPS: PPM: CXR: Chest CT Scan: Radiography Diagnostic Testing: Radiology Impression Echocardiogram 09/17/21 16:16 Interpretation Summary Normal LV size. The estimated ejection fraction is 45 %. Moderate segmental systolic dysfunction (see wall motion). There is moderate to severe mitral annular calcification. Moderate (2+) eccentric mitral valve insufficiency. Bioprosthetic aortic valve. Small echo-free space noted in the sinus of Valsalva outside of the bioprosthetic valve struts. Ordering Physician: Alyssa Quintana Referring Physician: JESSICA FONSECA Performed By: Evelyne Pedraza, RDCS, RVT Physical Exam Const alert, oriented x3 and no apparent distress General Appearance: cooperative HEENT hearing grossly normal bilaterally Eyes EOMs intact bilaterally Neck General: normal visual inspection Chest inspection of chest normal and palpation of chest normal Resp normal respiratory effort Auscultation: clear to auscultation bilaterally Cardio regular rate, regular rhythm, S1 normal heart sound and S2 normal heart sound Jugular Venous Distention: JVD Heart Sounds: murmur GI normal to inspection, nondistended, normoactive bowel sounds Extremity normal capillary refill and no pedal edema Skin no rashes or lesions noted Neuro oriented x3 and CN's II-XII intact bilaterally Psych Appearance: grossly normal and appropriate Assessment & Plan Assessment/Plan (1) Non-ST elevation [place] (NSTEMI): PLAN: She presents with chest discomfort which is rather concerning and is noted to have cardiac enzymes suggestive of a non-ST elevation myocardial infarction. Cardiac catheterization demonstrated normal left main coronary artery Left anterior descending artery with mid segment long 80% stenosis. First diagonal vessel with ostial 90% stenosis. Left circumflex artery which is small with diffuse mild disease. Large dominant right coronary artery with mild diffuse disease. Based on the above angiographic findings the patient underwent PCI of the mid left anterior descending artery. A stent was not able to be placed. However the patient appears to be stable. Echocardiogram demonstrated left ventricular systolic dysfunction with wall motion abnormalities involving the anterior wall. The plan will be to continue aspirin and Brilinta and DC Eliquis for now this will be reevaluated at his next visit office visit Continue beta-margo Continue statin Patient can be discharged later today (2) S/P TAVR (transcatheter aortic valve replacement): PLAN: She is status post TAVR. It appears to be fairly well situated. There is a small echo-free space noted against the wall with flow within but no significant regurgitation. No thrombus is noted within. Valve function however appears to be normal. (3) Paroxysmal atrial fibrillation: PLAN: Not appear that she has had any recurrences of the atrial fibrillation. We will however continue to monitor her during the admission. If patient undergoes PCI then I would recommend at her age that we discontinue the Eliquis and have her on aspirin and Brilinta only. This is because she would be a high bleeding risk. Thank you for allowing me to participate in the care of your patient. Please don't hesitate to call if any issues arise.
[2021-09-19 09:46] VITALS: BP 159/81; PULSE 92; RESP 16; TEMP 36.2; O2SAT 97
[2021-09-19] MEDS: Aspirin 81 MG TAB.CHEW PO (09:48)
[2021-09-19 09:49] VITALS: PULSE 92
[2021-09-19] MEDS: Metoprolol Tartrate 100 MG Tablet PO (09:49)
[2021-09-19] MEDS: TICAGRELOR 90 MG TABLET PO (09:49)
[2021-09-19] MEDS: amLODIPine 10 MG Tablet PO (09:50)
[2021-09-19] MEDS: Losartan Potassium 50 MG Tablet PO (09:50)
--- NOTE | 2021-09-19 10:00 | EKG12_ITS ---
Test Reason : AM EKG Blood Pressure : / mmHG Vent. Rate : 078 BPM Atrial Rate : 078 BPM P-R Int : 186 ms QRS Dur : 070 ms QT Int : 440 ms P-R-T Axes : 014 -34 096 degrees QTc Int : 501 ms Normal sinus rhythm Left axis deviation Septal infarct , age undetermined ST & T wave abnormality, consider anterolateral ischemia Abnormal ECG When compared with ECG of 18-SEP-2021 11:21, MANUAL COMPARISON REQUIRED, DATA IS UNCONFIRMED Confirmed by DEYA ARMENTA, JANELLE ([id number]), technical writer and editor SARAH GAVIRIA ([id number]) on 09/19/2021 11:19:22 AM Referred By: MARY Confirmed By:JATIN FALK MD
--- NOTE | 2021-09-19 10:35 | DCINST_ITS ---
Discharge Instructions Diet Discharge Diet: No restrictions Activity Discharge Activity: Return to Normal Activity Weight Bearing Status: Weight bearing as tolerated Dressing / Incision Call your doctor if you observe: Fever of 101 or Higher, Numbness or Tingling, Shortness of breath, Dizziness, Chest pain, Increased palpitations (irregular heartbeat) and Calf discomfort Follow Up Care Please Follow Up With: Primary care provider When: Within the next two weeks. Test Results: Test results from this visit will be discussed in further detail at your follow-up appointment, if applicable. Discharge Plan Admission Admit Date/Time: 09/17/21 15:39 Attending Provider: Rico Shepherd Primary Care Provider: Baltazar Saleh Consulting Providers: Alpesh López Instructions Additional Instructions / Restrictions: * You are scheduled to participate in Cardiac rehab for 3 days/week x 12 weeks. * Cardiac Rehab program phone number at [facility] is [phone]. Discharge Orders/Prescriptions Prescriptions: New Brilinta 90 mg Tablet 90 mg PO BID Qty: 60 RF: 0 atorvastatin 40 mg Tablet 40 mg PO QHS Qty: 30 RF: 0 Continued losartan 50 mg tablet 50 mg PO DAILY RF: 0 metoprolol tartrate 100 MG tablet 50 mg PO BID RF: 0 aspirin 81 MG tablet,chewable 81 mg PO DAILY@0800 RF: 0 amlodipine 10 MG tablet 10 mg PO QHS RF: 0 furosemide 40 MG tablet 40 mg PO QHS RF: 0 Held Eliquis 2.5 mg tablet 2.5 mg PO BID RF: 0 Hold Instructions: Resume on 10/17/21. Referrals / Follow Up: Baltazar Saleh MD [Primary Care Provider] - Within 2 Weeks Alpesh López MD [STAFF PHYSICIAN] - Within 2 Weeks Disposition Disposition (needs filled in before D/C Order can be placed): Home, Self Care
--- NOTE | 2021-09-19 13:29 | DS.PCM_ITS ---
Documented by User: Dru SPAIN 09/19/21 13:51 Providers Date of Admission: 09/17/21 Primary Care Physician: Dr. 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 Code(s): Z95.2 - Presence of prosthetic heart valve (3) Paroxysmal atrial fibrillation: Status: Chronic Code(s): I48.0 - Paroxysmal atrial fibrillation Medications at Discharge Home Medications aspirin 81 mg PO DAILY@0800 04/21/17 metoprolol tartrate 50 mg PO BID 04/21/17 amlodipine 10 mg PO QHS 04/28/17 apixaban 2.5 mg tablet 2.5 mg PO BID 09/07/19 losartan 50 mg tablet 50 mg PO DAILY 09/07/19 furosemide 40 mg PO QHS 09/17/21 atorvastatin 40 mg PO QHS #30 tab 09/19/21 ticagrelor [Brilinta] 90 mg PO BID #60 tab 09/19/21 Hospital Course Summary of Care Provided Minutes Spent on Discharge: 20 Hospital Course: Patient is an 86-year-old female who was admitted to [facility] on 09/17/2021 for evaluation and management of chest pain. Due to elevated troponins on admission, echocardiogram and a cardiac catheterization was obtained. Echocardiogram demonstrates normal LV size and EF of 45%. Cardiac catheterization was significant for 80% stenosis along the LAD as well as 97 stenosis of the first diagonal vessel. Patient did undergo PCI although a stent was not amenable to be placed. Recommendation was that patient pursue medical management. Patient was discharged on aspirin and Brilinta for 1 month. Eliquis was placed on hold for 1 month while Brilinta was being initiated, patient is to resume Eliquis when Brilinta is complete. Statin was also initiated on discharge. Patient is to follow-up with primary care provider and cardiology within the next 2 weeks. Patient seen by Dru Grimaldo PA-C, under the supervision of Dr. Shepherd. Time spent on patient care: 20 minutes. Physical Exam Narrative Patient is an 86-year-old female comfortably resting in bed, alert and orient x3. Patient denies development of any new symptoms overnight. Does not appear in acute distress. Const alert, oriented x3 and no apparent distress HEENT normocephalic, head/scalp atraumatic and hearing grossly normal bilaterally Eyes PERRL, EOMs intact bilaterally and conjunctivae normal Neck no lymphadenopathy, supple and no JVD Resp normal respiratory effort, no retractions and no use of accessory muscles Cardio regular rate, regular rhythm, no murmurs and no JVD GI normal to inspection, nondistended, normoactive bowel sounds, soft to palpation and non-tender Extremity normal to inspection, full ROM and no clubbing, cyanosis or edema Skin no rashes or lesions noted, no wounds and skin turgor normal Neuro CN's II-XII intact bilaterally Psych affect normal Weight / BMI Weight Weight: 154 lb 1.65 oz Body Mass Index (BMI) 29.0 ABG / Lab / Microbiology Data Result Diagrams: 09/19/21 04:46 09/19/21 04:46 Laboratory: Laboratory Results - last 24 hr 09/18/21 16:34: POC Glucose 167 H 09/18/21 21:26: POC Glucose 208 H 09/19/21 04:46: WBC 10.1, RBC 4.27, Hgb 11.8 L, Hct 36.3 L, MCV 85.0, MCH 27.6, MCHC 32.5 D, RDW Std Deviation 44.4 H, RDW Coeff of Jesi 14.4, Plt Count 208, MPV 10.4 09/19/21 04:46: Sodium 137, Potassium 4.0, Chloride 108 H, Carbon Dioxide 22.0, Anion Gap 7, BUN 31 H, Creatinine 1.33 H, Estim Creat Clear Calc 22.49, Est GFR (MDRD) Af Amer 49 L, Est GFR (MDRD) Non-Af 40 L, BUN/Creatinine Ratio 23.3 H, Glucose 184 H, Calcium 8.7, Total Bilirubin 0.60, AST 55 H, ALT 19, Alkaline Phosphatase 102, Total Protein 6.4, Albumin 2.7 L, Globulin 3.7, Albumin/Globulin Ratio 0.7 L 09/19/21 06:47: POC Glucose 189 H Radiography Diagnostic Testing: Radiology Impression Echocardiogram 09/17/21 16:16 Interpretation Summary Normal LV size. The estimated ejection fraction is 45 %. Moderate segmental systolic dysfunction (see wall motion). There is moderate to severe mitral annular calcification. Moderate (2+) eccentric mitral valve insufficiency. Bioprosthetic aortic valve. Small echo-free space noted in the sinus of Valsalva outside of the bioprosthetic valve struts. Ordering Physician: Alyssa Quintana Referring Physician: JESSICA SALEH Performed By: Evelyne Pedraza, RUBÉNCS, RVT D/C Instructions Discharge Diet: No restrictions Weight Bearing Status: Weight bearing as tolerated Call your doctor if you observe: Fever of 101 or Higher, Numbness or Tingling, Shortness of breath, Dizziness, Chest pain, Increased palpitations (irregular heartbeat) and Calf discomfort Please Follow Up With: Primary care provider When: Within the next two weeks. Meaningful Use Info Meaningful Use Diagnoses (Choose all that apply): None applicable Discharge Plan Admission Admit Date/Time: 09/17/21 15:39 Attending Provider: Rico Shepherd Primary Care Provider: Jessica Saleh Consulting Providers: Alpesh López Instructions Additional Instructions / Restrictions: * You are scheduled to participate in Cardiac rehab for 3 days/week x 12 weeks. * Cardiac Rehab program phone number at [facility] is [phone]. Discharge Orders/Prescriptions Prescriptions: New Brilinta 90 mg Tablet 90 mg PO BID Qty: 60 RF: 0 atorvastatin 40 mg Tablet 40 mg PO QHS Qty: 30 RF: 0 Continued losartan 50 mg tablet 50 mg PO DAILY RF: 0 metoprolol tartrate 100 MG tablet 50 mg PO BID RF: 0 aspirin 81 MG tablet,chewable 81 mg PO DAILY@0800 RF: 0 amlodipine 10 MG tablet 10 mg PO QHS RF: 0 furosemide 40 MG tablet 40 mg PO QHS RF: 0 Held Eliquis 2.5 mg tablet 2.5 mg PO BID RF: 0 Hold Instructions: Resume on 10/17/21. Referrals / Follow Up: Alpesh López MD [STAFF PHYSICIAN] - Within 2 Weeks Jessica Saleh MD [Primary Care Provider] - Within 2 Weeks (Please call to to make an appointment for a hospital follow up visit. ) Disposition Disposition (needs filled in before D/C Order can be placed): Home, Self Care Documented by User: Dr. Rico Shepherd MD 09/19/21 14:48 Providers Date of Admission: 09/17/21 Reason For Visit: NSTEMI Medications at Discharge Home Medications aspirin 81 mg PO DAILY@0800 04/21/17 metoprolol tartrate 50 mg PO BID 04/21/17 amlodipine 10 mg PO QHS 04/28/17 apixaban 2.5 mg tablet 2.5 mg PO BID 09/07/19 losartan 50 mg tablet 50 mg PO DAILY 09/07/19 furosemide 40 mg PO QHS 09/17/21 atorvastatin 40 mg PO QHS #30 tab 09/19/21 ticagrelor [Brilinta] 90 mg PO BID #60 tab 09/19/21 ABG / Lab / Microbiology Data Result Diagrams: 09/19/21 04:46 09/19/21 04:46 Discharge Plan Admission Admit Date/Time: 09/17/21 15:39 Attending Provider: Rico Shepherd Primary Care Provider: Jessica Saleh Consulting Providers: Alpesh López Instructions Additional Instructions / Restrictions: * You are scheduled to participate in Cardiac rehab for 3 days/week x 12 weeks. * Cardiac Rehab program phone number at [facility] is [phone]. Discharge Orders/Prescriptions Prescriptions: New Brilinta 90 mg Tablet 90 mg PO BID Qty: 60 RF: 0 atorvastatin 40 mg Tablet 40 mg PO QHS Qty: 30 RF: 0 Continued losartan 50 mg tablet 50 mg PO DAILY RF: 0 metoprolol tartrate 100 MG tablet 50 mg PO BID RF: 0 aspirin 81 MG tablet,chewable 81 mg PO DAILY@0800 RF: 0 amlodipine 10 MG tablet 10 mg PO QHS RF: 0 furosemide 40 MG tablet 40 mg PO QHS RF: 0 Held Eliquis 2.5 mg tablet 2.5 mg PO BID RF: 0 Hold Instructions: Resume on 10/17/21. Referrals / Follow Up: Alpesh López MD [STAFF PHYSICIAN] - Within 2 Weeks Jessica Saleh MD [Primary Care Provider] - Within 2 Weeks (Please call to to karine noble an appointment for a hospital follow up visit. ) Disposition Disposition (needs filled in before D/C Order can be placed): Home, Self Care Charges/Coding Addendum Addendum: Addendum: Dr. Shepherd: I personally reviewed the chart and examined the patient, and agree with the above findings. 86-year-old female presented to the emergency room secondary to chest pain. She states that they were going to the grocery store with her when she started having the chest pain with ambulation. She does have a history of aortic stenosis status post TAVR as well as nonobstructive CAD. In the ER she was found to have an elevated troponin and was diagnosed with a non- STEMI. Cardiology was consulted and recommended cath in the morning. Cath on 09/18/2021 demonstrated mid LAD lesion, she is status post stent with minimal residual chest pain and feels much improved from admission. In discussion with cardiology hold hold her Eliquis, given her age and will place her on an aspirin and Brilinta. Time spent on all clinical care activities: 18 minutes 09/19/2021: So she did not have a stent yesterday she just had balloon angioplasty done and this morning her chest pain is completely resolved. In further discussions with cardiology given the fact that her chest pain is resolved they are okay with discharge today they recommend that we do 1 month of aspirin and Brilinta and then at the end of that 1 month resume her Eliquis and discontinue her Brilinta which they said that they would manage on the outpatient side. I discussed with her the plan for discharge today she expressed understanding of the risk and benefits of going home and would like to go home today. Clinically follow-up with her PCP in 3 to 5 days and cardiology in 2 weeks. Clinical time spent in all patient care activities: 25 minutes Visit Charges Inpatient E&M: [id number] Disch Hosp
--- NOTE | 2021-09-23 08:21 | CL.D_ITS ---
Patient Name: PHUC AIKEN Study Date: 09/18/2021 Performing: Alpesh López MD Ht: 61.02 inches 155 cm : 1935 Wt: 154.32 lbs 70 kg Age: 86 Gender: female BSA: 1.69 PROCEDURE(S) PERFORMED DC02-([id number])LHC/COR IC01-([id number])PTCA, SINGLE CORONARY ARTERY CLINICAL PROFILE AND INDICATIONS Indications: ACS <= 24 hrs, Worsening Angina Heart Failure: None Stress/Imaging Stress/Image Study Performed: No CAD Presentations: Non-STEMI. Symptom onset Date/Time: Time Not Available CONCLUSIONS Severe [place] vessel coronary disease involving the mid and distal left anterior descending artery RECOMMENDATIONS Consider PCI to the mid LAD DESCRIPTION OF PROCEDURE The patient arrived to the procedure lab. The risks and benefits of the procedure as well as a full d escription of our services here and current unavailability of surgical backup were fully explained to the patient and/or their significant other prior to the catheterization. The Timeout was completed, verifying the correct patient and procedure. The patient's procedural site was prepped and draped in the usual fashion. Local anesthetic was given subcutaneously to right radial region with Lidocaine 2% . Using a modified Seldinger technique, arterial access was obtained via the right radial artery, a 6 Fr sheath was inserted. Left Coronary Artery selective angiography was performed in multiple views u sing a 5 Fr. JL3.5 catheter. Right Coronary Artery selective angiography was then performed in multip le views using a 5 Fr. 3DRC (Ti) catheter.The arterial sheath was pulled and a TR Band was appl ied for hemostasis w/ 10ml air CORONARY ANGIOGRAPHY DOMINANCE: Right Dominant LEFT HEART ASSESSMENT Left Ventricular Ejection Fraction: by Echo 40 % LEFT MAIN: Angiographically normal LEFT ANTERIOR DESCENDING ARTERY: Long the mid LAD lesion with 80% stenosis and distal 80% stenosis in a diffusely diseased vessel CIRCUMFLEX ARTERY: Mild diffuse disease in a nondominant vessel RIGHT CORONARY ARTERY: Dominant vessel with no significant stenosis noted AORTIC ROOT: Stable TAVR graft seen within the aortic root with a mildly dilated sinus of Valsalva noted COMPLICATIONS No Complications PROCEDURE MEDICATIONS Versed 1 mg IV Fentanyl 50 mcg IV Fentanyl 25 mcg IV Oxygen: 2 L/min via nasal cannula Oxygen: 4 L/min via nasal cannula Brilinta 180 mg PO @ 09/18/2021 09:21:47 Heparin given IA 09/18/2021 08:48:01 Heparin 2000 unit(s) IV 09/18/2021 09:25:39 Potassium Chloride 40 mEq PO 09/18/2021 08:15:20 Verapamil 2.5mg, Ntg 100mcgs, 3000 units of Heparin given IA 09/18/2021 08:48:01 SUMMARY OF HEMODYNAMIC DATA Time AIR REST ECG 08:17:10 AO 120/55 (85) SA 08:49:55 AO 118/56 (80) 08:54:46 AO 130/67 (95) 08:59:11 RM AIR REST 11:07:16 Signed By Alpesh López MD On 09/23/2021 8:20:50 AM Alpesh López MD
== END 2021-09-19 11:30 | disposition home or self-care (01) | DRG 247 ==
LOC: ED 15:17 → PCU 16:09
PROVIDERS: Internal Medicine Cardiovascular Disease; Nurse Practitioner Family; Specialist; Admitting Provider Internal Medicine; Emergency Provider Emergency Medicine; PCP Family Medicine; Visit Provider Family Medicine
DX: I21.4 Non-ST elevation (NSTEMI) myocardial infarction (principal); I13.0 Hypertensive heart and chronic kidney disease with heart failure and stage 1 through stage 4 chronic kidney disease, or unspecified chronic kidney disease; I50.32 Chronic diastolic (congestive) heart failure; E11.22 Type 2 diabetes mellitus with diabetic chronic kidney disease; I48.0 Paroxysmal atrial fibrillation; I77.819 Aortic ectasia, unspecified site; N18.32 Chronic kidney disease, stage 3b; I25.10 Atherosclerotic heart disease of native coronary artery without angina pectoris; E78.5 Hyperlipidemia, unspecified; Z79.01 Long term (current) use of anticoagulants; Z79.82 Long term (current) use of aspirin; Z95.2 Presence of prosthetic heart valve; Z79.02 Long term (current) use of antithrombotics/antiplatelets
CPT/HCPCS: 36415; 71045; 71275; 80048; 80053; 80061; 82962; 83036; 84484; 85025; 85027; 85610; 85730; 92920; 93005; 93306; 93458; 97802; 99152; 99153; 99251; 99285; C1874; J7030; Q9967; A4216; C1725; C1769; C1887; C1894; G0463; J1327

== ENCOUNTER 2021-09-25 10:57 | Outpatient (CLI) | payer MEDICARE, OTHER, SELFPAY ==
[2021-09-25 11:57] LABS: Anion Gap 6 (5-15); BUN 31 mg/dL (7-18); BUN/Creat Ratio 18.8 RATIO (10-20); Calcium,Total 9.3 mg/dL (8.5-10.1); Chloride 107 mmol/L (98-107); Creatinine, Serum 1.65 mg/dL (0.55-1.02); EST Glomerular Filtration Rate 31 mL/min (>60); Est Glom Filt Rate - Afr Amer 38 mL/min (>60); Glucose 178 mg/dL (74-106); Potassium 4.3 mmol/L (3.5-5.1); Sodium Level 138 mmol/L (136-145)
[2021-09-25 12:01] LABS: BNP,B-Type NATRIURETIC PEPTIDE 646.8 pg/mL (0-100)
== END 2021-09-25 23:59 | disposition home or self-care (01) ==
LOC: LAB 11:01
PROVIDERS: PCP Family Medicine; Referring Provider Nurse Practitioner Family; Visit Provider Nurse Practitioner Family
DX: I50.42 Chronic combined systolic (congestive) and diastolic (congestive) heart failure (principal); R06.00 Dyspnea, unspecified
CPT/HCPCS: 36415; 80048; 83880

== ENCOUNTER 2022-06-19 04:06 | Inpatient (IN) | payer MEDICARE, OTHER, SELFPAY ==
[2022-06-19] VITALS (33 sets, daily range): BP systolic 129–156; BP diastolic 53–119; PULSE 67–121; RESP 12–36; TEMP 36.4–37.1; O2SAT 80–100; BMI 32.5; BMI 29.3
--- NOTE | 2022-06-19 04:21 | EKG12_ITS ---
Test Reason : DYSRHYTHMIA Blood Pressure : / mmHG Vent. Rate : 107 BPM Atrial Rate : 107 BPM P-R Int : 156 ms QRS Dur : 074 ms QT Int : 346 ms P-R-T Axes : 064 -12 082 degrees QTc Int : [address] & T wave abnormality, consider lateral ischemia Abnormal ECG Confirmed by ELVA ARMENTA, NORM ([id number]), scientific publications editor SARAH GAVIRIA ([id number]) on 06/23/2022 12:59:11 PM Referred By: IVA Confirmed By:NORM STEVENSON MD
--- NOTE | 2022-06-19 04:22 | ED.VIS.DYS ---
HPI History of Present Illness Chief Complaint: Shortness of Breath Informant: patient Onset/Context/Timing Onset: Weeks (1-2) Context: gradual Timing: Continuous Quality: Positive for - (short of breath) Current Severity: Severe Maximum Severity: Severe Worsened by: Exertion and Coughing Relieved by: Rest Associated Symptoms cough Chest Pain: Positive for None Narrative Narrative: Patient states she started getting this illness starting with a cough 1 to 2 weeks ago, her and she got it together, she has progressively become worse, she went to urgent care and had a chest x-ray this past week, she states they called her with the results saying she had pneumonia on both sides, but it was too late to get a prescription, she states her doctor then gave her a prescription for Augmentin, she has taken 2 days of 7 so far and she is much worse now. Her right leg is swollen, she states that is new. She is on a apixaban for a history of A. fib apparently. She is a relatively poor historian with regards to details but she can tell me the above. EMS report patient was 75% on room air, she is not on home oxygen. They placed her on a nonrebreather and she was 99%. [facility] Medical History Aortic sclerosis Atherosclerosis of coronary artery of [place] heart without angina pectoris Bilateral carotid artery stenosis Chronic combined systolic and diastolic CHF (congestive heart failure) Chronic kidney disease, stage 3 Chronic venous insufficiency Diabetes mellitus Diastolic CHF History of non-ST elevation myocardial infarction (NSTEMI) (09/17/21) History of transcatheter aortic valve replacement (TAVR) (05/18/17) Hyperlipidemia Hypertension associated with diabetes Ischemic cardiomyopathy Mitral annular calcification Nonrheumatic aortic (valve) stenosis Nonrheumatic mitral (valve) insufficiency Paroxysmal atrial fibrillation Renal artery stenosis Home Medications aspirin 81 mg chewable tablet 81 mg PO DAILY@0800 04/21/17 [History Last Taken 09/17/21] metoprolol tartrate 100 mg tablet 50 mg PO BID 04/21/17 [History Last Taken 09/17/21] amlodipine 10 mg tablet 10 mg PO QHS 04/28/17 [History Last Taken 09/16/21] apixaban 2.5 mg tablet (Eliquis) 2.5 mg PO BID 09/07/19 [History Last Taken 09/17/21] ticagrelor 90 mg tablet (Brilinta) 90 mg PO BID #60 tabs 09/19/21 [Rx Last Taken Unknown] atorvastatin 40 mg tablet 40 mg PO QHS 09/25/21 [History Last Taken Unknown] furosemide 40 mg tablet 40 mg PO BID 09/25/21 [History Last Taken Unknown] losartan 100 mg tablet 100 mg PO DAILY #90 tabs 09/25/21 [Rx Last Taken Unknown] Allergy/AdvReac Type Severity Reaction Status Date / Time No Known Allergies Allergy Verified 09/25/21 10:00 Family History Sister Asthma Breast cancer Hypertension Hyperlipidemia Melanoma Father , From old age per patient. Denies specific medical problems. No problems noted. Mother , From old age per patient. Denies specific medical problems. No problems noted. Surgical History History of appendectomy History of coronary angioplasty (09/18/21) History of left heart catheterization (04/2017) Social History Smoking Status: Never smoker alcohol intake: never substance use type: does not use caffeine: Yes Type: coffee Number of servings: 1 ROS ROS ED Constitutional Constitutional ED: Reports fatigue and malaise; Denies chills or fever(s) Eyes Eyes: Denies change in vision or diplopia ENT ENT ED: Reports nasal congestion; Denies rhinorrhea or sore throat Cardiovascular Cardiovascular: Reports leg edema; Denies chest pain or palpitations Respiratory/Chest Respiratory/Chest: Reports cough and dyspnea Gastrointestinal Gastrointestinal: Denies abdominal pain, diarrhea, nausea or vomiting Genitourinary Genitourinary ED: Denies dysuria or hematuria Musculoskeletal Musculoskeletal: Denies back pain or neck pain Integumentary Denies abscess or rash Neurologic Neurologic: Denies headache(s), paresthesias or weakness Psychiatric Psychiatric: Denies anxiety or suicidal thoughts EXAM Physical Exam Const Vital Signs: 06/19/22 04:07 06/19/22 04:14 06/19/22 04:14 Temperature 97.9 F 97.9 F Temperature Source Temporal Temporal Pulse Rate 102 H 102 H Respiratory Rate 33 H 30 H Respiratory Effort Short of Breath Labored Respiratory Depth Normal Respiratory Pattern Tachypnea Blood Pressure 155/119 H 156/72 H Blood Pressure Mean 131 100 Pulse Ox 94 95 Oxygen Delivery Method Nasal Cannula Nasal Cannula Nasal Cannula Oxygen Flow Rate (L/min) 4 4 4 06/19/22 05:14 06/19/22 06:00 Temperature 97.8 F 97.8 F Temperature Source Temporal Temporal Pulse Rate 103 H 102 H Respiratory Rate 35 H 29 H Respiratory Effort Respiratory Depth Respiratory Pattern Blood Pressure 132/53 H 137/63 H Blood Pressure Mean 79 87 Pulse Ox 96 92 Oxygen Delivery Method Nasal Cannula Nasal Cannula Oxygen Flow Rate (L/min) 4 4 Positive well nourished and well developed General Appearance ED: well developed and NAD HEENT Reports moist mucous membranes normocephalic and atraumatic Eyes PERRL and EOMs intact bilaterally Neck full ROM, no lymphadenopathy, supple and no JVD Resp Resp Narrative: Mild respiratory distress, diffuse bibasilar wheezing and Rales. Speaking in 3-5 word sentences. Cardio regular rate, regular rhythm and no murmurs GI non-tender and non-distended Auscultation: normoactive bowel sounds Palpation: soft Back/Spine no CVA tenderness General Back: other FROM Extremity normal to inspection General Extremety ED: Yes edema; Negative for pulses abnormal or tenderness General Extremity: edema right lower extremity moderate (With no swelling on the contralateral side. No signs of cellulitis. No calf tenderness or palpable cord.); Negative for pulses abnormal Neuro oriented x3, CN's II-XII intact bilaterally and no sensory deficits noted Sensorium / Orientation: awake and alert Motor Exam: strength 5/5 throughout Psych mental status grossly normal Skin no rashes or lesions noted and no wounds MDM MDM MDM Narrative Medical decision making narrative: With oxygen and nebulizer treatments, the patient is breathing much better. She is able to converse in near-full sentences now. Given this level of improvement I do not think she needs positive pressure ventilation, however she does require admission to the hospital. Her 1 view chest x-ray my interpretation shows bilateral infiltrates with a right parapneumonic effusion, difficult to rule out superimposed congestive heart failure. However given the fact that she is doing much better now with improvement of her vital signs I am holding off on giving her emergent Lasix on top of what she is already taken which is 40 mg twice daily. Plan is for admission. Levaquin given. At this time she is on a nasal cannula at 4 L, and she is satting at 93%. Lab Data Attestation: I reviewed the patient's lab results. Labs: Laboratory Results - last 24 hr 06/19/22 04:35 Sodium 139 Potassium 3.7 Chloride 107 Carbon Dioxide 24.0 Anion Gap 8 BUN 35 H Creatinine 1.33 H Estim Creat Clear Calc 22.49 Est GFR (MDRD) Af Amer 48 L Est GFR (MDRD) Non-Af 40 L BUN/Creatinine Ratio 26.3 H Glucose 260 H Calcium 8.9 Troponin I High Sens 32 White blood count 14.5 hemoglobin 8.6 platelets 244 (81% neutrophils, no bands). Lactic acid 1.2. BUN slightly elevated 35, otherwise chemistries unremarkable creatinine not yet reported. BNP 824. Rapid COVID and influenza negative. Radiography Diagnostic Testing: Clinical Impression(s) from Imaging Studies Chest X-Ray 06/19/22 04:47 IMPRESSION: Consider multifocal pneumonia with consolidation in the lung bases possible superimposed pleural effusion. Status post Tav. Electronically Signed: Oxana Rodriguez MD at 5:59 EDT , Rhythm Strip Rhythm Strip: Sinus Tach Rate: 110 Ectopy: None EKG Initial EKG: Attestation: I personally reviewed and interpreted this EKG as follows: Interpretation: No Acute Injury Pattern, Sinus Tachycardia and Non-Specific ST Changes (Some signs of LV strain versus ischemia laterally) Prior EKG tracings: available for review Prior: Changed Discharge Plan Dx/Rx/DC Orders Clinical Impression: Acute hypoxemic respiratory failure, Pneumonia, Chronic combined systolic and diastolic CHF (congestive heart failure), Parapneumonic effusion, Failure of outpatient treatment, Chronic kidney disease (CKD) Disposition Disposition: Acute Care Hospital [facility]
--- NOTE | 2022-06-19 04:47 | RAD_ITS ---
STUDY: X-RAY CHEST REASON FOR EXAM: Female, 86 years old. SOB TECHNIQUE: Single AP portable view of the chest. COMPARISON: September 17, 2021 FINDINGS: Since prior study there is been interval development of a fairly dense rounded consolidation in the left upper lobe. There is dense bilateral lower lobe opacity with blunting of the costophrenic angles. The visualized calcific densities in the right upper lobe suggesting old granulomatous disease. There is mild to moderate cardiac enlargement. The patient is status Tav. Normal mediastinum and noble. Normal visualized pulmonary arteries. There is atherosclerotic tortuosity of the aortic arch and descending thoracic aorta. There are diffuse degenerative changes of the visualized thoracic spine. Normal visualized ribs, clavicles, and shoulders. There is no demonstrated abnormality of the visualized soft tissue structures of the upper abdomen. RAD/Chest 1 View (Portable) IMPRESSION: Consider multifocal pneumonia with consolidation in the lung bases possible superimposed pleural effusion. Status post Tav. Electronically Signed: Oxana Rodriguez MD at 5:59 EDT ,
[2022-06-19 06:34] LABS: BUN 35 mg/dL (7-18); BUN/Creat Ratio 26.3 RATIO (10-20); Calcium,Total 8.9 mg/dL (8.5-10.1); Creatinine, Serum 1.33 mg/dL (0.55-1.02); EST Glomerular Filtration Rate 40 mL/min (>60); Est Glom Filt Rate - Afr Amer 48 mL/min (>60); Estimated Creatinine Clearance 22.49 ml/min; Glucose 260 mg/dL (74-106)
[2022-06-19 06:35] LABS: Anion Gap 8 (5-15); Chloride 107 mmol/L (98-107); Potassium 3.7 mmol/L (3.5-5.1); Sodium Level 139 mmol/L (136-145); Troponin-I HS 32 pg/mL (3.0-54.0)
[2022-06-19 07:04] LABS: Absolute Lymphocyte Count 1.28 X10^3/uL (0.83-4.51); Absolute Neutrophil Count 11.8 X10^3/uL (2.0-7.7); Basophil# 0.05 X10^3/uL; Basophil% 0.3 % (0-1); Eosinophil# 0.27 X10^3/uL; Eosinophils% 1.9 % (0-5); Hematocrit 25.9 % (37-47); Hemoglobin 8.6 g/dL (12.0-15.0); Lymphocyte # 1.28 X10^3/ul (0.83-4.51); Lymphocyte % 8.8 % (19-41); Mean Corp Hgb Conc 33.2 g/dL (32-36); Mean Corpuscular Hgb 28.9 pg (27.0-32.0); Mean Corpuscular Volume 86.9 fL (81-99); Mean Platelet Vol. 9.2 fl (6.2-12.0); Monocyte# 1.07 X10^3/uL; Monocyte% 7.4 % (0-10); NRBC Flagged by Analyzer 0 % (0-5); Neutrophil # 11.77 X10^3/uL (2.7-7.7); Neutrophil % 80.9 % (47-70); Platelet Count 244 K/mm3 (150-450); RBC Distribution Width CV 16.4 % (11.6-14.6); RBC Distribution Width SD 51.5 fl (35.1-43.9); Red Blood Count 2.98 M/mm3 (4.2-5.4); White Blood Count 14.5 K/mm3 (4.4-11.0)
[2022-06-19] MEDS: levoFLOXacin IV 750 MG/150 ML BAG 100 MG IV (07:07)
--- NOTE | 2022-06-19 07:16 | HP.PCM.HOS_ITS ---
HPI - General General Date of Admission: 06/19/22 Date of Service: 06/19/22 Chief Complaint: Shortness of breath HPI Narrative PHUC AIKEN, is a 86 F who presented to the emergency department [facility] on 06/19/2022 with worsening shortness of breath. Patient indicates approximately 2 weeks ago she had a cold where she suffered from some nasal congestion, postnasal drip, and developed a cough with sputum production. She reported that it did not get better and a few days ago she went to an urgent care and was told she had pneumonia and was instructed to go to her doctor and get an antibiotic. 2 days ago she was placed on Augmentin however she has been feeling worse and becoming more short of breath so she presented to the emergency department. She states that her cough with sputum production has improved with the antibiotic but her shortness of breath overall became more so that is why she presented. She denies any chest pain, nausea, vomiting, diarrhea or constipation, tingling, numbness or focal weakness. She does complain of fatigue and generalized weakness since she has been ill. Vital signs on presentation showed a temperature of 97.9, heart rate of 102, blood pressure of 155/119 with a repeat of 132/53 Respiratory rate was 33, and oxygen saturation was 75% on room air that improved to 94% on 4 L nasal cannula. Her CBC showed an elevated white count at 14.54 and a hemoglobin that is lower than typical at 8.6 (baseline appears to be in the 11 range). Her chemistry panel showed normal electrolytes with chronic stable CKD stage IIIb having a serum creatinine of 1.33. Her lactic acid was 1.2. Initial troponin was 32. BNP was 800 and her COVID-19 and influenza antigens were negative. Her EKG shows normal sinus rhythm/mild sinus tachycardia with a heart rate of 100. She did appear to have some ST depression in the lateral leads which is consistent with her previous cardiac cat heterization done earlier this year which was not intervenable. Her serum glucose was markedly elevated at 260. Her chest x-ray shows a small right pleural effusion and bilateral infiltrates that are multifocal in nature. In the emergency department she was treated with a DuoNeb and albuterol and given levofloxacin. She was also given a baby aspirin x1 dose. 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) Hyperlipidemia Hypertension associated with diabetes Ischemic cardiomyopathy Mitral annular calcification Nonrheumatic aortic (valve) stenosis Nonrheumatic mitral (valve) insufficiency Paroxysmal atrial fibrillation Renal artery stenosis Home Medications aspirin 81 mg chewable tablet 81 mg PO DAILY@0800 04/21/17 [History Last Taken 09/17/21] metoprolol tartrate 100 mg tablet 50 mg PO BID 04/21/17 [History Last Taken 09/17/21] amlodipine 10 mg tablet 10 mg PO QHS 04/28/17 [History Last Taken 09/16/21] apixaban 2.5 mg tablet (Eliquis) 2.5 mg PO BID 09/07/19 [History Last Taken 09/17/21] ticagrelor 90 mg tablet (Brilinta) 90 mg PO BID #60 tabs 09/19/21 [Rx Last Taken Unknown] atorvastatin 40 mg tablet 40 mg PO QHS 09/25/21 [History Last Taken Unknown] furosemide 40 mg tablet 40 mg PO BID 09/25/21 [History Last Taken Unknown] losartan 100 mg tablet 100 mg PO DAILY #90 tabs 09/25/21 [Rx Last Taken Unknown] Allergy/AdvReac Type Severity Reaction Status Date / Time No Known Allergies Allergy Verified 09/25/21 10:00 Family History Sister Asthma Breast cancer Hypertension Hyperlipidemia Melanoma Father , From old age per patient. Denies specific medical problems. No problems noted. Mother , From old age per patient. Denies specific medical problems. No problems noted. Surgical History History of appendectomy History of coronary angioplasty (09/18/21) History of left heart catheterization (04/2017) Social History Smoking Status: Never smoker alcohol intake: never substance use type: does not use caffeine: Yes Type: coffee Number of servings: 1 ROS Constitutional Constitutional: Reports fatigue, malaise and weakness; Denies anorexia, change in weight, chills, fever(s), night sweats or other Eyes Eyes: Denies blurry vision, change in eye color, change in vision, discharge from eye(s), double vision, erythema, eye pain, loss of vision or other ENT HEENT: Reports nasal congestion; Denies abnormal hearing, dysphagia, ear pain, epistaxis, headache(s), hearing loss, nasal discharge, post nasal drip, sinus pressure, sore throat or other Cardiovascular Cardiovascular: Reports dyspnea on exertion; Denies chest pain, claudication, edema, lightheadedness, orthopnea, palpitations, paroxysmal nocturnal dyspnea, rapid heart rate, syncope or other Respiratory/Chest Respiratory/Chest: Reports cough, dyspnea, shortness of breath at rest and shortness of breath with exertion; Denies excessive phlegm production, hemoptysis, productive cough, wheezing or other Gastrointestinal Gastrointestinal: Denies abdominal pain, coffee ground emesis, constipation, diarrhea, dyspepsia, hematemesis, hematochezia, loose stools, melena, nausea, vomiting or other Genitourinary Genitourinary: Denies burning urination, difficulty urinating, dysuria, hematuria, nocturia, urinary frequency, urinary hesitancy, urinary incontinence, urinary urgency or other Musculoskeletal Musculoskeletal: Denies arthralgias, back pain, joint pain, joint stiffness, joint swelling, myalgias, neck pain or other Neurologic Neurologic: Denies abnormal gait, abnormal speech, confusion, disequilibrium, dizziness, focal weakness, headache(s), numbness, paresthesias, seizure-like activity, seizures, syncope, tingling, tremor(s) or other Psychiatric Psychiatric: Denies anxiety, depression, homicidal ideation, suicidal ideation or other Endocrine Endocrinology: Denies change in body appearance, cold intolerance, excessive sweating, heat intolerance, polydipsia, polyuria or other Hematologic/Lymphatic Hematologic/Lymphatic: Denies anemia, easy bleeding, easy bruising, lymphadenopathy or other Allergic/Immunologic Allergic/Immunologic: Denies rhinitis, hives, eczemia, asthma or other Vital Signs Vital Signs Vital Signs: 06/19/22 04:07 06/19/22 04:14 06/19/22 04:14 Temperature 97.9 F 97.9 F Temperature Source Temporal Temporal Pulse Rate 102 H 102 H Respiratory Rate 33 H 30 H Respiratory Effort Short of Breath Labored Respiratory Depth Normal Respiratory Pattern Tachypnea Blood Pressure 155/119 H 156/72 H Blood Pressure Mean 131 100 Pulse Ox 94 95 Oxygen Delivery Method Nasal Cannula Nasal Cannula Nasal Cannula Oxygen Flow Rate (L/min) 4 4 4 06/19/22 05:14 06/19/22 06:00 06/19/22 07:14 Temperature 97.8 F 97.8 F 98.7 F Temperature Source Temporal Temporal Temporal Pulse Rate 103 H 102 H 103 H Respiratory Rate 35 H 29 H 32 H Respiratory Effort Respiratory Depth Respiratory Pattern Blood Pressure 132/53 H 137/63 H 137/65 H Blood Pressure Mean 79 87 89 Pulse Ox 96 92 94 Oxygen Delivery Method Nasal Cannula Nasal Cannula Room Air Oxygen Flow Rate (L/min) 4 4 Weight Weight: 78.3 kg Body Mass Index (BMI) 32.5 Physical Exam Const alert and oriented x3 Constitutional Narrative: Obese, elderly white female sitting up in bed currently on 4 L supplemental nasal cannula, still with some tachypnea however no signs of respiratory extremis, very pleasant, at bedside General Appearance: cooperative HEENT normocephalic, head/scalp atraumatic and moist oral mucous membranes; Negative for hearing grossly normal bilaterally HEENT Narrative: Dentition is fair for age, Mallampati is 2, no thrush, mild hearing loss Eyes PERRL and EOMs intact bilaterally Eyes Narrative: Mild conjunctival pallor, no scleral icterus Neck no lymphadenopathy and supple Neck Narrative: Trachea midline, no thyroid enlargement Resp no retractions and no use of accessory muscles Resp Narrative: Diminished at right base with few scattered crackles bilaterally greater on the right than the left, tachypnea Auscultation: crackles; Negative for rhonchi or wheezes Cardio regular rate, regular rhythm, S1 normal heart sound, S2 normal heart sound, no murmurs, no rub, no gallops and no clicks GI normal to inspection, nondistended, normoactive bowel sounds, soft to palpation and non-tender; Negative for hepatosplenomegaly Extremity Extremity Narrative: Trace left lower extremity edema, 1+ right lower extremity edema with no cyanosis or clubbing Skin no rashes or lesions noted, no wounds, skin turgor normal, no jaundice, no petechiae and no mottling Neuro oriented x3, CN's II-XII intact bilaterally, moves all extremities and no focal motor deficits Neuro Narrative: Generalized weakness but independent in bed mobility, no focal deficits Speech: speech normal Psych affect normal Psych Narrative: A pleasant and appropriately interactive Results Lab / Micro Data Attestation: I reviewed the patient's lab results. Result Diagrams: 06/19/22 04:25 06/19/22 04:35 Labs: Laboratory Results - last 24 hr 06/19/22 04:25: WBC 14.5 H, RBC 2.98 L, Hgb 8.6 L, Hct 25.9 L, MCV 86.9, MCH 28.9, MCHC 33.2, RDW Std Deviation 51.5 H, RDW Coeff of Jesi 16.4 H, Plt Count 244, MPV 9.2, Immature Gran % (Auto) 0.700, Neut % (Auto) 80.9 H, Lymph % (Auto) 8.8 L, Starr % (Auto) 7.4, Eos % (Auto) 1.9, Baso % (Auto) 0.3, Absolute Neuts (auto) 11.8 H, Absolute Lymphs (auto) 1.28, Nucleated RBC % 0 06/19/22 04:35: Sodium 139, Potassium 3.7, Chloride 107, Carbon Dioxide 24.0, Anion Gap 8, BUN 35 H, Creatinine 1.33 H, Estim Creat Clear Calc 22.49, Est GFR (MDRD) Af Amer 48 L, Est GFR (MDRD) Non-Af 40 L, BUN/Creatinine Ratio 26.3 H, Glucose 260 H, Calcium 8.9, Troponin I High Sens 32 Rhythm Strip Rhythm Strip: Sinus Tach Rate: 110 Ectopy: None Radiology Impression Chest X-Ray 06/19/22 04:47 IMPRESSION: Consider multifocal pneumonia with consolidation in the lung bases possible superimposed pleural effusion. Status post Tav. Electronically Signed: Oxana Rodriguez MD at 5:59 EDT , Assessment & Plan Assessment/Plan (1) Pneumonia: (2) Acute hypoxemic respiratory failure: (3) Decompensated heart failure: (4) Leukocytosis: (5) Normocytic anemia: (6) Hyperglycemia due to type 2 diabetes mellitus: (7) Abnormal EKG: PLAN: Plan Acute hypoxic respiratory failure secondary to decompensated HFrEF/CAP -Patient typically on room air at baseline -Currently requiring 4 L supplemental oxygen to maintain sats greater than 88% -Desatted on room air to 74% -BNP elevated 800 which is markedly elevated compared to her baseline -Chest x-ray shows patchy infiltrates with right sided pleural effusion -Lasix 40 mg IV push twice daily -COVID-19 and rapid flu are negative -Check strep pneumo and Legionella antigens -Sputum culture if able -Start ceftriaxone and azithromycin -Aggressive pulmonary toilet -I-S -PEP with Acapella -Check echocardiogram -Last echo was from 09/17/2021 showed an EF of 45% with moderate segmental systolic dysfunction, moderate to severe mitral annular calcification, stable bioprosthetic aortic valve CAD/decompensated HFrEF/HTN/HPL -Repeat echocardiogram as noted above -Lasix IV push twice daily -Patient did have cardiac catheterization done on 09/23/2021 which revealed severe unga vessel coronary artery disease in involving the mid and distal LAD -PCI to the LAD was recommended time however they were unable to traverse that area and stent was not able to be placed and she has been treated with medical therapy -EKG does show some ST depression in the lateral leads which would be consistent with previous findings -We will cycle cardiac enzymes -Initial troponin was normal -Continue home Brilinta, metoprolol, losartan, atorvastatin, aspirin amlodipine Leukocytosis -Suspect related to the above -Broad-spectrum antibiotics as noted above -Continue to monitor Anemia -Hemoglobin is much lower than on her last admission where it has dropped from 11-8 -Check iron studies -Check guaiac stool as patient is chronically anticoagulated with triple therapy if medications are accurate -If his guaiac positive would recommend discontinuation of aspirin versus Brilinta depending on cardiology's preference with her being on chronic apixaban -Monitor CBC -Could potentially be down related to volume overload as well DM-2 with hyperglycemia -Patient is not on any outpatient therapy for her diabetes -Greater than 200 on presentation -Check hemoglobin A1c -Start SSI -Accu-Cheks as ordered Paroxysmal atrial fibrillation -Currently in normal sinus rhythm -Continue home apixaban -Continue home metoprolol History of renal artery stenosis -No current issues -Watch serum creatinine CKD stage IIIb -Serum creatinine appears to run between 1.3 and 1.6 -Current serum creatinine 1.33 -Avoid nephrotoxins as able -Repeat lab in a.m. and monitor closely with diuresis DVT prophylaxis -Continue home apixaban CODE STATUS -Full code as per discussion prior to admission with the patient and her the emergency department Charges/Coding Visit Charges Inpatient E&M: 21070 Init Hosp L3
[2022-06-19 07:40] LABS: Ferritin 314 ng/mL (8-252); Iron 32 ug/dL (50-170); Iron Binding Capacity,Total 225 ug/dL (250-450); PERCENT IRON SATURATION 14.2 % (15.0-55.0)
--- NOTE | 2022-06-19 08:02 | ECHOD_ITS ---
Reason For Study: CHF Procedure This was a 2D Doppler, Color Flow transthoracic echocardiogram. Technically difficult study. Patient sitting upright due to extreme SOB. No Definity used because of increased Pulmonary Pressures. Exam performed portable in patient room. Left Ventricle Normal left ventricle. Moderate concentric left ventricular hypertrophy. The left ventricular ejection fraction is 60 %. Stage 2 diastolic dysfunction. Right Ventricle Normal right ventricle. Atria The left atrium is severely enlarged. The right atrium is moderately enlarged. Mitral Valve Severe mitral annular calcification. Moderate mitral valve stenosis. Mild (1+) mitral valve insufficiency. Tricuspid Valve Mild to moderate (1-2+) tricuspid valve insufficiency. Pulmonary artery systolic pressure is 66 mmHg. Severe pulmonary hypertension. Aortic Valve Bioprosthetic aortic valve. Pulmonic Valve The pulmonic valve is not well visualized. Great Vessels Normal sized aortic root. Pericardium/Pleural No pericardial effusion. MMode/2D Measurements & Calculations LVIDd: 4.1 cm IVSd: 1.4 cm LVOT diam: 1.8 cm LVIDs: 2.1 cm LVPWd: 1.4 cm LVOT area: 2.4 cm2 FS: 49.2 % Ao root diam: 3.1 cm LAV(MOD-bp): 73.9 ml LA A4 area: 22.9 cm2 LA dimension: 4.5 cm LAV(MOD-bp) Indexed: 43.6 ml/m2 LAV(MOD-sp2): 75.9 ml LAV(MOD-sp4): 68.1 ml RA A4 area: 13.1 cm2 Time Measurements MV dec time: 0.32 sec Doppler Measurements & Calculations MV E max justin: 200.3 cm/sec Lat Peak E' Justin: 6.6 cm/sec Med Peak E' Justin: 4.8 cm/sec MV A max justin: 186.7 cm/sec E/E' lat: 30.2 E/E' med: 41.7 MV E/A: 1.1 MV V2 max: 216.8 cm/sec MV P1/2t max justin: 214.3 cm/sec Ao V2 max: 339.4 cm/sec MV max P.9 mmHg MV P1/2t: 88.6 msec Ao max P.1 mmHg MV V2 mean: 139.3 cm/sec MV dec slope: 708.5 cm/sec2 Ao V2 mean: 225.2 cm/sec MV mean P.1 mmHg Ao mean P.8 mmHg MV V2 VTI: 44.3 cm MVA(P1/2t): 2.5 cm2 Ao V2 VTI: 65.1 cm MVA(VTI): 2.4 cm2 ELLIOT(I,D): 1.6 cm2 ELLIOT(V,D): 1.5 cm2 LV V1 max: 206.1 cm/sec MR max justin: 604.5 cm/sec SV(LVOT): 107.2 ml LV V1 max P.0 mmHg MR max P.2 mmHg LV V1 mean P.5 mmHg MR mean justin: 446.9 cm/sec LV V1 mean: 142.6 cm/sec MR mean P.1 mmHg LV V1 VTI: 44.4 cm MR VTI: 145.9 cm TR max justin: 390.9 cm/sec TR max P.2 mmHg ECHO/Echo Complete Interpretation Summary Moderate concentric left ventricular hypertrophy. The left ventricular ejection fraction is 60 %. Stage 2 diastolic dysfunction. The left atrium is severely enlarged. The right atrium is moderately enlarged. Severe mitral annular calcification. Moderate mitral valve stenosis. Mild (1+) mitral valve insufficiency. Mild to moderate (1-2+) tricuspid valve insufficiency. Severe pulmonary hypertension. Bioprosthetic aortic valve mean peak gradient 23 mm Hg Ordering Physician: Chantal Nicholas Referring Physician: Baltazar Saleh Performed By: Blayne Roberts RCS
[2022-06-19 08:07] LABS: BNP,B-Type NATRIURETIC PEPTIDE 823.7 pg/mL (0-100)
[2022-06-19 08:14] LABS: Lactic Acid 1.2 mmol/L (0.4-1.9)
[2022-06-19] MEDS: Albuterol 2.5 MG/3 ML VIAL.NEB. INHALATION (08:39)
[2022-06-19 08:47] LABS: Platelet Count 214 K/mm3 (150-450); RET-HE 27.8 pg (30-35); Reticulocyte Count 2.57 % (0.5-1.5)
[2022-06-19 09:03] LABS: Hemoglobin A1c 8.1 % (3.8-5.6)
[2022-06-19 09:27] LABS: Troponin-I HS 28 pg/mL (3.0-54.0)
[2022-06-19] MEDS: Aspirin 81 MG TAB.CHEW PO (10:47)
[2022-06-19] MEDS: Metoprolol Tartrate 50 MG Tablet PO ×2 (10:47→21:17)
[2022-06-19] MEDS: APIXABAN 2.5 MG TABLET PO ×2 (10:47→21:18)
[2022-06-19] MEDS: Losartan Potassium 100 MG Tablet PO (10:47)
[2022-06-19] MEDS: Furosemide 40 MG/4 ML Vial IV ×2 (10:47→17:59)
[2022-06-19] MEDS: Insulin Lispro 100 UNIT/ML INSULN.PEN SC ×2 (11:07→16:10)
[2022-06-19 11:18] LABS: Troponin-I HS 27 pg/mL (3.0-54.0)
[2022-06-19 11:46] LABS: Bedside Glucose 331 mg/dL (74-106)
--- NOTE | 2022-06-19 11:58 | PCM.PN.HOSP ---
Subjective Subjective Patient is an 86-year-old female with multiple comorbidities admitted with progressive shortness of breath. An assessment of acute hypoxic respiratory failure secondary to combination of pneumonia as well as acute congestive heart failure made. Patient placed on noninvasive ventilation admitted to a monitored bed for further management Objective Data Objective Data Vital Signs: Vital Signs Temp Pulse Resp BP Pulse Ox O2 Del Method O2 Flow Rate 97.7 F L 101 H 20 H 134/53 H 95 Non-Rebreather 15 06/19/22 10:36 06/19/22 10:47 06/19/22 10:36 06/19/22 10:47 06/19/22 11:54 06/19/22 11:54 06/19/22 11:54 FiO2 31 06/19/22 11:25 Oxygen Flow Rate (L/min) 15 Oxygen Delivery Method Non-Rebreather Weight: 70.505 kg Body Mass Index (BMI) 29.3 Intake & Output: Intake and Output for Last 24 Hours 06/17/22 06/18/22 06/19/22 23:59 23:59 23:59 Intake Total 150 / 150 Balance 150 / 150 Lab / Micro Data Result Diagrams: 06/19/22 04:25 06/19/22 04:35 Labs: Laboratory Results - last 24 hr 06/19/22 04:25: WBC 14.5 H, RBC 2.98 L, Hgb 8.6 L, Hct 25.9 L, MCV 86.9, MCH 28.9, MCHC 33.2, RDW Std Deviation 51.5 H, RDW Coeff of Jesi 16.4 H, Plt Count 244, MPV 9.2, Immature Gran % (Auto) 0.700, Neut % (Auto) 80.9 H, Lymph % (Auto) 8.8 L, Richardson % (Auto) 7.4, Eos % (Auto) 1.9, Baso % (Auto) 0.3, Absolute Neuts (auto) 11.8 H, Absolute Lymphs (auto) 1.28, Nucleated RBC % 0 06/19/22 04:35: Sodium 139, Potassium 3.7, Chloride 107, Carbon Dioxide 24.0, Anion Gap 8, BUN 35 H, Creatinine 1.33 H, Estim Creat Clear Calc 22.49, Est GFR (MDRD) Af Amer 48 L, Est GFR (MDRD) Non-Af 40 L, BUN/Creatinine Ratio 26.3 H, Glucose 260 H, Calcium 8.9, Troponin I High Sens 32 06/19/22 04:35: B-Natriuretic Peptide 823.7 H 06/19/22 04:35: Lactic Acid 1.2 06/19/22 04:35: Iron 32 L, TIBC 225 L, Iron Saturation 14.2 L, Ferritin 314 H 06/19/22 08:32: Retic Count 2.57 H, Immature Retic Fraction 31.40 H, Retic Hgb Equivalent 27.8 L 06/19/22 08:32: Hemoglobin A1c 8.1 H 06/19/22 08:32: Troponin I High Sens 28 06/19/22 10:35: Troponin I High Sens 27 06/19/22 11:04: POC Glucose 331 H Micro: Microbiology 06/19/22 04:40 Nasal Secretion SARS-CoV-2 & FLU Antigen (Rapid) - Final Radiography Diagnostic Testing: Radiology Impression Chest X-Ray 06/19/22 04:47 IMPRESSION: Consider multifocal pneumonia with consolidation in the lung bases possible superimposed pleural effusion. Status post Tav. Electronically Signed: Oxana Rodriguez MD at 5:59 EDT Reading Location ID and State: [facility] / [place] Tel , Service support , Rhythm Strip Rhythm Strip: Sinus Tach Rate: 110 Ectopy: None Physical Exam Narrative GENERAL: Dyspneic at rest using accessory muscles in breathing HEENT: Atraumatic; normocephalic EYES; Anicteric, Normal Conjunctiva NECK; supple, normal thyroid, RESPIRATORY: Diminished to auscultation, tachypneic CARDIOVASCULAR: Regular S1 S2, GI: soft, normoactive bowel sounds, : No Renal angle tenderness; EXTREMITIES: No edema, no clubbing, MUSCULOSKELETAL: no muscle wasting NEURO: Awake; no lateralizing signs. SKIN: No Rash PSYCH; Flat affect Assessment & Plan Assessment/Plan (1) Pneumonia: (2) Acute hypoxemic respiratory failure: (3) Decompensated heart failure: (4) Leukocytosis: (5) Normocytic anemia: (6) Hyperglycemia due to type 2 diabetes mellitus: (7) Abnormal EKG: PLAN: Plan Patient is an 86-year-old female with multiple comorbidities admitted with progressive shortness of breath. An assessment of acute hypoxic respiratory failure secondary to combination of pneumonia as well as acute congestive heart failure made. Patient placed on noninvasive ventilation admitted to a monitored bed for furt 1. Acute hypoxic respiratory failure ? Due to combination of decompensated congestive heart failure with reduced ejection fraction as well as community-acquired pneumonia. Patient has been admitted to a monitored bed please on noninvasive ventilation initially with a Ventimask which had to be increased to 15 L nonrebreather with oxygen titrated to keep saturation greater than 90 -Patient did not respond to initial treatments, patient was subsequently placed on BiPAP with consultation placed to pulmonary medicine. Repeat chest x-ray ordered for subsequent evaluation 2. Pneumonia - Suspected to be secondary to streptococcal pneumonia, Blood and sputum cultures sent. Patient placed on Rocephin and Zithromax and placed on oxygen titrated to keep Pulse Ox greater than 90 3. Acute on chronic congestive heart failure with reduced ejection fraction ? Patient placed on IV diuretics, strict input and output, daily weights as well as supplemental oxygen. Echo obtained on 09/17/2021 demonstrated EF of 45% with moderate segmental systolic dysfunction 4. Hypertension - Blood pressure controlled, home medications continued with dose adjustment as needed 5. Diabetes mellitus type II -patient's oral hypoglycemics held. Placed on long acting insulin, Accu-Cheks a.c. and at bedtime and covered with sliding scale insulin 6. Paroxysmal A. fib ? Rate controlled patient is on systemic anticoagulation with apixaban 7. Coronary artery disease - with history of non-ST MN patient underwent left heart catheterization on 09/23/2021 which revealed severe [place]ct[place] vessel coronary artery disease in involving the mid and distal LAD, PCI to the LAD was recommended time however they were unable to traverse that area and stent was not able to be placed and she has been treated with medical therapy 8. History of renal artery stenosis Stable, monitoring with daily creatinine 9. Chronic kidney disease stage IIIb ? Patient baseline creatinine ranges between 1.3-1.6. Monitoring with daily electrolytes ordered and avoiding potential nephrotoxic medications 10. DVT prophylaxis - On apixaban Advance planning; did discuss with the patient and family (patient ) regarding advanced directives as well as CODE STATUS. Did explain the various scenarios involved ( FULL CODE, DNR CCA, DNR CCA with no intubation, and DNR CC and what each meant) patient elected to remain full code with CPR and intubation if warranted. Order was placed. Time spent on discussion 18 minutes. Total prolonged time spent evaluating patient, adjustment of therapy, discussion with nursing staff as well as other providers involved in patient's care 55 minutes Charges/Coding Multi Select Codes Hospitalists' Procedures Procedures: 35232 Prolonged InPt Service; first hour and 61829 Advncd Care Plan 30 Min
--- NOTE | 2022-06-19 12:25 | CASEMGMT ---
Addendum entered by Won Pagan 06/19/22 12:58: Correction: NRB mask was in place, not venti mask. Original Note: [facility] NOTE: [facility] to room for initial assessment. Pt sitting up in recliner chair. Venti mask in place. Pt had just put her call light on as BR[facility] SUMMERS entering room. Pt c/o difficulty breathing. RNBrianna, notified immediately. [facility] to complete assessment at a later time. Gypsy BARRY RN CM
[2022-06-19] MEDS: Furosemide 100 MG/10 ML Vial 80 MG IV (12:26)
[2022-06-19] MEDS: Ipratropium/Albuterol Sulfate 3 ML AMPUL.NEB INHALATION ×2 (12:56→20:15)
[2022-06-19] MEDS: Racepinephrine HCl 0.5 ML VIAL.NEB. INHALATION (12:57)
--- NOTE | 2022-06-19 13:00 | EX.PCM.CONCC ---
Assessment & Plan Assessment/Plan (1) Acute hypoxemic respiratory failure: PLAN: Plan RECOMMENDATIONS: 1. Continue BiPAP therapy and wean FiO2 for saturations greater than 90%. 2. Continue diuresis as tolerated by hemodynamics and renal function. 3. Broaden antimicrobials to include Zosyn and vancomycin. IMPRESSIONS: 1. Acute hypoxemic respiratory failure Likely multifactorial in etiology with community-acquired pneumonia and decompensated heart failure contributing. The patient's oxygenation status has worsened over the course of the day. However, she appears to have stabilized since being started on BiPAP therapy. Therefore, recommend continuing noninvasive positive pressure ventilatory support along with diuretics as tolerated by hemodynamics and renal function. In light of her worsening oxygenation status, I am going to broaden her antimicrobials. I would also plan to place a Onofre catheter to more strictly monitor I's and O's. If the patient were to decompensate any further, transfer to ICU would be indicated. 2. History of diabetes mellitus/paroxysmal atrial fibrillation/hypertension/coronary artery disease/chronic kidney disease Complicates care, management, recovery and prognosis. Continue home medications as indicated. This note was generated with [employer] dictation software. It may contain incorrect words, spelling, and punctuation that were not noted in checking the note before signing. HPI Consult Data Date of Consult: 06/20/22 HPI Narrative Reason for Consultation: Acute hypoxemic respiratory failure HPI Narrative: The patient is an 86-year-old female, with a history as outlined below, who presented to the emergency department on June 19 with progressive shortness of breath and cough. The patient reported that approximately 2 weeks ago she and her had a presumptive upper respiratory infection. However, her symptoms never significantly improved. She was ultimately seen in the urgent care and later by her primary care provider, who ultimately placed her on Augmentin. The patient completed a partial course of antibiotics but continued to worsen. The patient has a known history of coronary artery disease, paroxysmal atrial fibrillation and aortic stenosis status post TAVR in 2017. On presentation to the emergency department, the patient was noted to be afebrile and hemodynamically stable. She was initially requiring 4 L/min of supplemental oxygen to maintain appropriate saturations. Initial laboratory evaluation revealed an elevated white blood cell count of 14,000. Chemistry profile was notable for a creatinine of 1.3. Troponin was negative. BNP was elevated at 823. Lactate was normal at 1.2. Rapid antigen testing for COVID and influenza were negative. Strep and urine Legionella antigens were negative. Chest x-ray demonstrated multilobar infiltrates with what appeared to be possible bilateral pleural effusions. Prior echocardiogram from September 2021 demonstrated an ejection fraction of 45% with a pulmonary artery systolic pressure of 45 mmHg. The patient was initiated on empiric antimicrobials and IV Lasix twice daily. She was subsequently admitted to the progressive care unit for further management. However, over the course of the day, the patient's oxygen demand has slowly increased. FOR[facility]LY [facility], LATER [facility] Medical History Aortic sclerosis Atherosclerosis of coronary artery of [place] heart without angina pectoris Bilateral carotid artery stenosis Chronic combined systolic and diastolic CHF (congestive heart failure) Chronic kidney disease, stage 3 Chronic venous insufficiency Diabetes mellitus Diastolic CHF History of non-ST elevation myocardial infarction (NSTEMI) (09/17/21) History of transcatheter aortic valve replacement (TAVR) (05/18/17) Hyperlipidemia Hypertension associated with diabetes Ischemic cardiomyopathy Mitral annular calcification Nonrheumatic aortic (valve) stenosis Nonrheumatic mitral (valve) insufficiency Paroxysmal atrial fibrillation Renal artery stenosis Home Medications aspirin 81 mg chewable tablet 81 mg PO DAILY@0800 BLOOD THINNER 04/21/17 [History Last Taken 06/18/22] metoprolol tartrate 100 mg tablet 50 mg PO DAILY hr 04/21/17 [History Last Taken 06/18/22] amlodipine 10 mg tablet 10 mg PO QHS BP 04/28/17 [History Last Taken 06/18/22] apixaban 2.5 mg tablet (Eliquis) 2.5 mg PO BID BLOOD THINNER 09/07/19 [History Last Taken 06/18/22] furosemide 40 mg tablet 40 mg PO DAILY FLUID 09/25/21 [History Last Taken 06/18/22] glimepiride 1 mg tablet 1 mg PO QHS SUGAR 06/19/22 [History Last Taken 06/18/22] glimepiride 2 mg tablet 2 mg PO DAILY SUGAR 06/19/22 [History Last Taken 06/18/22] losartan 50 mg tablet 50 mg PO BID BP 06/19/22 [History Last Taken 06/18/22] metoprolol succinate 25 mg tablet,extended release 24 hr 50 mg PO QHS hr 06/19/22 [History Last Taken 06/18/22] Allergy/AdvReac Type Severity Reaction Status Date / Time No Known Allergies Allergy Verified 09/25/21 10:00 Family History Sister Asthma Breast cancer Hypertension Hyperlipidemia Melanoma Father , From old age per patient. Denies specific medical problems. No problems noted. Mother , From old age per patient. Denies specific medical problems. No problems noted. Surgical History History of appendectomy History of coronary angioplasty (09/18/21) History of left heart catheterization (04/2017) Social History Smoking Status: Never smoker alcohol intake: never substance use type: does not use caffeine: Yes Type: coffee Number of servings: 1 ROS ROS Narrative 10 systems were reviewed with pertinent positives as noted in the HPI above. Physical Exam Const alert and no apparent distress Constitutional Narrative: Sitting in bedside recliner with BiPAP in place. General Appearance: cooperative HEENT normocephalic and head/scalp atraumatic Eyes PERRL, EOMs intact bilaterally and conjunctivae normal Neck supple General: trachea midline Chest inspection of chest normal Resp Effort and Inspection: tachypneic Auscultation: wheezes and diminished lung sounds Cardio regular rate and regular rhythm GI normal to inspection, nondistended, normoactive bowel sounds Extremity no clubbing, cyanosis or edema Skin no rashes or lesions noted Neuro oriented x3, CN's II-XII intact bilaterally and moves all extremities Psych cooperative and affect normal Lab / Micro Data Result Diagrams: 06/20/22 06:52 06/20/22 06:52 Labs: Laboratory Results - last 24 hr 06/19/22 04:25: WBC 14.5 H, RBC 2.98 L, Hgb 8.6 L, Hct 25.9 L, MCV 86.9, MCH 28.9, MCHC 33.2, RDW Std Deviation 51.5 H, RDW Coeff of Jesi 16.4 H, Plt Count 244, MPV 9.2, Immature Gran % (Auto) 0.700, Neut % (Auto) 80.9 H, Lymph % (Auto) 8.8 L, [place] % (Auto) 7.4, Eos % (Auto) 1.9, Baso % (Auto) 0.3, Absolute Neuts (auto) 11.8 H, Absolute Lymphs (auto) 1.28, Nucleated RBC % 0 06/19/22 04:35: Sodium 139, Potassium 3.7, Chloride 107, Carbon Dioxide 24.0, Anion Gap 8, BUN 35 H, Creatinine 1.33 H, Estim Creat Clear Calc 22.49, Est GFR (MDRD) Af Amer 48 L, Est GFR (MDRD) Non-Af 40 L, BUN/Creatinine Ratio 26.3 H, Glucose 260 H, Calcium 8.9, Troponin I High Sens 32 06/19/22 04:35: B-Natriuretic Peptide 823.7 H 06/19/22 04:35: Lactic Acid 1.2 06/19/22 04:35: Iron 32 L, TIBC 225 L, Iron Saturation 14.2 L, Ferritin 314 H 06/19/22 08:32: Retic Count 2.57 H, Immature Retic Fraction 31.40 H, Retic Hgb Equivalent 27.8 L 06/19/22 08:32: Hemoglobin A1c 8.1 H 06/19/22 08:32: Troponin I High Sens 28 06/19/22 10:35: Troponin I High Sens 27 06/19/22 11:04: POC Glucose 331 H Micro: Microbiology 06/19/22 12:05 Urine, Random Streptococcus pneumoniae Antigen (M - Final 06/19/22 12:05 Urine, Random Legionella Antigen - Final 06/19/22 04:40 Nasal Secretion SARS-CoV-2 & FLU Antigen (Rapid) - Final Rhythm Strip Rhythm Strip: Sinus Tach Rate: 110 Ectopy: None Radiology Impression Chest X-Ray 06/19/22 04:47 IMPRESSION: Consider multifocal pneumonia with consolidation in the lung bases possible superimposed pleural effusion. Status post Tav. Electronically Signed: Oxana Rodriguez MD at 5:59 EDT , Charges/Coding Visit Charges Inpatient E&M: 03916 Init Hosp L3
--- NOTE | 2022-06-19 13:13 | RAD_ITS ---
STUDY: X-RAY CHEST REASON FOR EXAM: Female, 86 years old. Dyspnea TECHNIQUE: Single AP portable view of the chest. COMPARISON: Comparison is made with prior study done earlier in the day. FINDINGS: EKG electrodes are seen. Persistent bilateral pulmonary infiltrates superimposed on a mild degree of CHF. There has been improved aeration of both lung bases. Persistent small bilateral pleural effusions. Normal size heart. Normal mediastinum and noble. Normal visualized pulmonary arteries. There is atherosclerotic calcification of the aortic arch with tortuosity. There are diffuse degenerative changes of the visualized thoracic spine. Normal visualized ribs, clavicles, and shoulders. There is no demonstrated abnormality of the visualized soft tissue structures of the upper abdomen. RAD/Chest 1 View (Portable) IMPRESSION: Bilateral pulmonary infiltrates superimposed on CHF. There has been mild improvement as compared to prior study. Electronically Signed: Randolph Fallon MD at 13:57 EDT ,
--- NOTE | 2022-06-19 14:15 | CASEMGMT ---
BROWN SUMMERS Assessment: RN CM to room to meet with patient for initial transition planning/care coordination assessment. BROWN SUMMERS introduced self and role at [facility]. Pt voices understanding and consents to assessment at this time. Patient's Martínez present at bedside. Pt is resting in bed w/NRB mask in place. She is alert and oriented and answers all questions appropriately. Care providers, pharmacy, and demographics verified/updated at this time. PCP: Dr Saleh Specialists: Heating And Refrigeration Inspector @ [facility] main [place] Preferred Pharmacy: [facility] Insurance: MCR A/B, [employer] Prescription Benefit: yes Living Will/HPOA: Patient denies having a living will or HPOA. She is interested in completing. JANEL, Elisabeth, made aware. Pt also made aware, if SW unable to meet w/her during hospitalization, AD can be completed as an OP. Pt has Television Service Engineer Rac Card w/contact info. LNOK: Martínez. 3 sons: Chalo López Michael Living Arrangements: Pt lives with in a raised-ranch home with 10-12 steps to enter the home. Patient states independent with ADLs prior to hospitalization. and pt share home mgmt tasks. Transportation: Patient drives self and denies transportation concerns. also drives. DME: Has a glucometer with testing supplies. Also has a cane and walker available, but does not use. Pt does not have a pulse ox or home O2. Pt provided w/list of local DME companies, if she would qualify for home O2 @ discharge. Pt made aware [employer] is affiliated w/[facility]. Pt's first choice is [employer]. HHC/SNF: Denies previous HHC or SNF stays. CM to follow for possible HHC @ discharge. Pt wishes to return home and states has no concerns with going home at time of discharge. CM to follow for home oxygen needs and any further discharge planning/needs. Pt voices no further concerns/needs at this time. Advised pt and to ask for CM if any further questions/concerns/needs arise. They voice understanding. Plan: Home w/spousal support and discharge plans in place. CM to follow for possible Home O2 @ discharge. If pt discharges home on O2, nursing to provide pulse ox w/instructions on use @ d/c. Gypsy BARRY RN, CM
--- NOTE | 2022-06-19 15:35 | CHAPLAIN ---
Type of Pastoral Visit _x__ Initial Visit ___ Follow-up Visit ___ On-call Visit ___ General Patient Visit ___ Spiritual Assessment ___ Family Conference ___ Bereavement ___ Rapid Response ___ Code Blue ___ Other (describe below) Pastoral Care Referral From _x__ Patient ___ Family ___ Nurse ___ Physician ___ Spring Up Supervisor ___ Bond Clerk ___ Other (describe below) Sacrament/Intervention _x__ Active listening ___ Anointing ___ Sikh ___ Bereavement ___ Communion ___ Roxane exploration ___ ___ Life review _x__ Prayer ___ Reconciliation ___ Sacrament of Sick _x__ Supportive presence ___ Wedding ___ Other (describe below) Pastoral Comments patient is sitting in chair and on bi-pap; introduced self and role to patient with comment that she would not need to talk much since on bi-pap; pt does talk and interact, answering questions, and sharing story of health; pt indicates that she has improved today; pt welcomes presence and prayer
--- NOTE | 2022-06-19 15:46 | PCM.RX.CS ---
Consult Pharmacy has been consulted to manage selected antiobiotic: Vancomycin Type of Consult: New start Suspected Infection: Pneumonia Prior Doses of Antibiotics Received/Current Regimen: Loading dose of 1750mg iv x 1 on 06.19.22. Labs: Sodium 139 mmol/L (136-145) 06/19/22 04:35 Potassium 3.7 mmol/L (3.5-5.1) 06/19/22 04:35 Chloride 107 mmol/L (98-107) 06/19/22 04:35 Carbon Dioxide 24.0 mmol/L (21.0-32.0) 06/19/22 04:35 Anion Gap 8 (5-15) 06/19/22 04:35 BUN 35 mg/dL (7-18) H 06/19/22 04:35 Creatinine 1.33 mg/dL (0.55-1.02) H 06/19/22 04:35 Est GFR (MDRD) Af Amer 48 mL/min (>60) L 06/19/22 04:35 Est GFR (MDRD) Non-Af 40 mL/min (>60) L 06/19/22 04:35 BUN/Creatinine Ratio 26.3 RATIO (10-20) H 06/19/22 04:35 Glucose 260 mg/dL (74-106) H 06/19/22 04:35 Microbiology: Microbiology 06/19/22 12:35 Mucosa - Nasopharyngeal Respiratory Panel (PCR) - Final 06/19/22 12:05 Urine, Random Streptococcus pneumoniae Antigen (M - Final 06/19/22 12:05 Urine, Random Legionella Antigen - Final 06/19/22 04:40 Nasal Secretion SARS-CoV-2 & FLU Antigen (Rapid) - Final Weight used for dosin.5 kg Estimated Creatinine Clearance: ~27ml/min. Goal Trough: 15-20 mcg/mL Pharmacy Plan for Drug Dosing: Using a calculated CrCl of ~27ml/min from adjusted body weight of 56.7kg, a dose of 750mg iv q24h will be started. Trough level ordered for before third cumulative dose. Pharmacy Service will continue to monitor and adjust dosing as required. Follow-Up Labs: Trough Vancomycin - 06.21.22 @1430 before 1500 dose
[2022-06-19 16:01] LABS: M R Staph aureus DNA By PCR Negative (Negative); Probe Check PASS; Specimen Processing Control PASS
[2022-06-19 17:00] LABS: Bedside Glucose 319 mg/dL (74-106)
[2022-06-19] MEDS: Atorvastatin Calcium 40 MG Tablet PO (21:18)
[2022-06-19] MEDS: amLODIPine 10 MG Tablet PO (21:18)
[2022-06-20] VITALS (17 sets, daily range): BP systolic 141–146; BP diastolic 64–71; PULSE 80–112; RESP 12–29; TEMP 36.6–37.2; O2SAT 92–98
--- NOTE | 2022-06-20 02:55 | CPS ---
Pt on Bipap all evening, unable to perform PeP therapy
[2022-06-20] MEDS: Insulin Lispro 100 UNIT/ML INSULN.PEN SC ×3 (06:26→16:27)
[2022-06-20 06:51] LABS: Bedside Glucose 328 mg/dL (74-106)
[2022-06-20 07:31] LABS: Absolute Neutrophil Count 7.7 X10^3/uL (2.0-7.7); Basophil# 0.01 X10^3/uL; Basophil% 0.1 % (0-1); Hematocrit 25.4 % (37-47); Hemoglobin 8.4 g/dL (12.0-15.0); Lymphocyte % 3.6 % (19-41); Mean Corp Hgb Conc 33.1 g/dL (32-36); Mean Corpuscular Hgb 29.1 pg (27.0-32.0); Mean Corpuscular Volume 87.9 fL (81-99); Mean Platelet Vol. 9.6 fl (6.2-12.0); Monocyte# 0.13 X10^3/uL; Monocyte% 1.6 % (0-10); NRBC Flagged by Analyzer 0 % (0-5); Neutrophil # 7.73 X10^3/uL (2.7-7.7); Neutrophil % 94.1 % (47-70); POSITIVE DIFFERENTIAL YES; Platelet Count 233 K/mm3 (150-450); RBC Distribution Width CV 16.5 % (11.6-14.6); RBC Distribution Width SD 53.1 fl (35.1-43.9); Red Blood Count 2.89 M/mm3 (4.2-5.4); White Blood Count 8.2 K/mm3 (4.4-11.0)
[2022-06-20 07:36] LABS: Differential Indicated SCAN CRITERIA MET
[2022-06-20] MEDS: Ipratropium/Albuterol Sulfate 3 ML AMPUL.NEB INHALATION ×2 (08:01→19:47)
--- NOTE | 2022-06-20 08:01 | PN.HOSP_ITS ---
Subjective Subjective Patient went into acute respiratory distress the day prior had to be placed on BiPAP and her diuretic dose increased. Seen this morning patient has since been weaned off BiPAP breathing however remains slightly labored Objective Data Objective Data Vital Signs: Vital Signs Temp Pulse Resp BP Pulse Ox O2 Del Method O2 Flow Rate 97.9 F 93 17 141/71 H 95 Nasal Cannula 5 06/20/22 04:01 06/20/22 07:00 06/20/22 04:01 06/20/22 04:01 06/20/22 05:25 06/20/22 05:25 06/20/22 05:25 FiO2 30 06/20/22 01:58 Oxygen Flow Rate (L/min) 5 Oxygen Delivery Method Nasal Cannula Weight: 70.5 kg Body Mass Index (BMI) 29.3 Intake & Output: Intake and Output for Last 24 Hours 06/18/22 06/19/22 06/20/22 23:59 23:59 23:59 Intake Total 1560 / 1560 78.96 / 78.96 Output Total 1625 / 1625 350 / 350 Balance -65 / -65 -271.04 / -271.04 Lab / Micro Data Result Diagrams: 06/20/22 06:52 06/20/22 06:52 Labs: Laboratory Results - last 24 hr 06/19/22 04:35: B-Natriuretic Peptide 823.7 H 06/19/22 04:35: Lactic Acid 1.2 06/19/22 08:32: Retic Count 2.57 H, Immature Retic Fraction 31.40 H, Retic Hgb Equivalent 27.8 L 06/19/22 08:32: Hemoglobin A1c 8.1 H 06/19/22 08:32: Troponin I High Sens 28 06/19/22 10:35: Troponin I High Sens 27 06/19/22 11:04: POC Glucose 331 H 06/19/22 11:25: MRSA (PCR) Negative 06/19/22 16:08: POC Glucose 319 H 06/20/22 06:25: POC Glucose 328 H 06/20/22 06:52: WBC 8.2, RBC 2.89 L, Hgb 8.4 L, Hct 25.4 L, MCV 87.9, MCH 29.1, MCHC 33.1, RDW Std Deviation 53.1 H, RDW Coeff of Jesi 16.5 H, Plt Count 233, MPV 9.6, Immature Gran % (Auto) 0.600, Neut % (Auto) 94.1 H, Lymph % (Auto) 3.6 L, [place] % (Auto) 1.6, Eos % (Auto) 0.0, Baso % (Auto) 0.1, Absolute Neuts (auto) 7.7, Absolute Lymphs (auto) 0.30 L, Nucleated RBC % 0 Micro: Microbiology 06/19/22 12:35 Mucosa - Nasopharyngeal Respiratory Panel (PCR) - Final 06/19/22 12:05 Urine, Random Streptococcus pneumoniae Antigen (M - Final 06/19/22 12:05 Urine, Random Legionella Antigen - Final 06/19/22 04:40 Nasal Secretion SARS-CoV-2 & FLU Antigen (Rapid) - Final Radiography Diagnostic Testing: Radiology Impression Chest X-Ray 06/19/22 04:47 IMPRESSION: Consider multifocal pneumonia with consolidation in the lung bases possible superimposed pleural effusion. Status post Tav. Electronically Signed: Oxana Rodriguez MD at 5:59 EDT , Echocardiogram 06/19/22 08:02 Interpretation Summary Moderate concentric left ventricular hypertrophy. The left ventricular ejection fraction is 60 %. Stage 2 diastolic dysfunction. The left atrium is severely enlarged. The right atrium is moderately enlarged. Severe mitral annular calcification. Moderate mitral valve stenosis. Mild (1+) mitral valve insufficiency. Mild to moderate (1-2+) tricuspid valve insufficiency. Severe pulmonary hypertension. Bioprosthetic aortic valve mean peak gradient 23 mm Hg Ordering Physician: Chantal Nicholas Referring Physician: Baltazar Saleh Performed By: Blayne Roberts RCS Chest X-Ray 06/19/22 13:13 IMPRESSION: Bilateral pulmonary infiltrates superimposed on CHF. There has been mild improvement as compared to prior study. Electronically Signed: Randolph Fallon MD at 13:57 EDT , Rhythm Strip Rhythm Strip: Sinus Tach Rate: 110 Ectopy: None Physical Exam Narrative GENERAL: Dyspneic at rest HEENT: Atraumatic; normocephalic EYES; Anicteric, Normal Conjunctiva NECK; supple, normal thyroid, RESPIRATORY: Diminished to auscultation, tachypneic CARDIOVASCULAR: Regular S1 S2, GI: soft, normoactive bowel sounds, : No Renal angle tenderness; EXTREMITIES: No edema, no clubbing, MUSCULOSKELETAL: no muscle wasting NEURO: Awake; no lateralizing signs. SKIN: No Rash PSYCH; Flat affect Assessment & Plan Assessment/Plan (1) Pneumonia: (2) Acute hypoxemic respiratory failure: (3) Decompensated heart failure: (4) Leukocytosis: (5) Normocytic anemia: (6) Hyperglycemia due to type 2 diabetes mellitus: (7) Abnormal EKG: PLAN: Plan Patient is an 86-year-old female with multiple comorbidities admitted with progressive shortness of breath. An assessment of acute hypoxic respiratory failure secondary to combination of pneumonia as well as acute congestive heart failure made. Patient placed on noninvasive ventilation admitted to a monitored bed for furt 1. Acute hypoxic respiratory failure ? Due to combination of decompensated congestive heart failure with reduced ejection fraction as well as community-acquired pneumonia. Patient has been admitted to a monitored bed please on noninvasive ventilation initially with a Ventimask which had to be increased to 15 L nonrebreather with oxygen titrated to keep saturation greater than 90 -Patient did not respond to initial treatments, patient was subsequently placed on BiPAP with consultation placed to pulmonary medicine. Repeat chest x-ray ordered for subsequent evaluation ? 06/20/2022 patient has been weaned off BiPAP remains on supplemental oxygen 2. Pneumonia - Suspected to be secondary to streptococcal pneumonia, Blood and sputum cultures sent. Patient placed on Rocephin and Zithromax and placed on oxygen titrated to keep Pulse Ox greater than 90 ? 06/20/2022 patient remains on broad-spectrum antibiotic therapy, cultures have remained negative to date 3. Acute on chronic congestive heart failure with reduced ejection fraction ? Patient placed on IV diuretics, strict input and output, daily weights as well as supplemental oxygen. Echo obtained on 09/17/2021 demonstrated EF of 45% with moderate segmental systolic dysfunction 4. Hypertension - Blood pressure controlled, home medications continued with dose adjustment as needed 5. Diabetes mellitus type II -patient's oral hypoglycemics held. Placed on long acting insulin, Accu-Cheks a.c. and at bedtime and covered with sliding scale insulin 6. Paroxysmal A. fib ? Rate controlled patient is on systemic anticoagulation with apixaban 7. Coronary artery disease - with history of non-ST PA patient underwent left heart catheterization on 09/23/2021 which revealed severe [place] vessel coronary artery disease in involving the mid and distal LAD, PCI to the LAD was recommended time however they were unable to traverse that area and stent was not able to be placed and she has been treated with medical therapy 8. History of renal artery stenosis Stable, monitoring with daily creatinine 9. Chronic kidney disease stage IIIb ? Patient baseline creatinine ranges between 1.3-1.6. Monitoring with daily electrolytes ordered and avoiding potential nephrotoxic medications 10. DVT prophylaxis - On apixaban Charges/Coding Visit Charges Inpatient E&M: 26453 Subs Hosp L2
[2022-06-20 08:11] LABS: ALB/GLOB Ratio 0.5 RATIO (0.9-2.4); AST(SGOT) 13 U/L (15-37); Alanine Aminotransfer ALT/SGPT 19 U/L (13-56); Albumin, Serum 2.1 g/dL (3.2-5.0); Alkaline Phosphatase 112 U/L (45-117); Anion Gap 13 (5-15); BUN 37 mg/dL (7-18); BUN/Creat Ratio 24.2 RATIO (10-20); Calcium,Total 8.6 mg/dL (8.5-10.1); Chloride 103 mmol/L (98-107); Creatinine, Serum 1.53 mg/dL (0.55-1.02); EST Glomerular Filtration Rate 34 mL/min (>60); Est Glom Filt Rate - Afr Amer 41 mL/min (>60); Estimated Creatinine Clearance 19.55 ml/min; Globulin 4.4 g/dL (2.2-4.2); Glucose 341 mg/dL (74-106); Magnesium 2.4 mg/dL (1.6-2.6); Phosphorus 3.6 mg/dL (2.5-4.9); Potassium 3.9 mmol/L (3.5-5.1); Protein, Total 6.5 g/dL (6.4-8.2); Sodium Level 137 mmol/L (136-145); Thyroid Stim Hormone (TSH) 0.34 uIU/mL (0.358-3.74)
[2022-06-20 08:17] LABS: Anisocytosis 1+; Microcytosis 1+; Platelet Estimate ADEQUATE (ADEQ)
--- NOTE | 2022-06-20 08:26 | PCM.PN.INT ---
Assessment & Plan Assessment/Plan (1) Acute hypoxemic respiratory failure: PLAN: Plan RECOMMENDATIONS: 1. Continue to wean supplemental oxygen to maintain saturations at or above 90%. 2. Continue diuresis as tolerated by hemodynamics and renal function. 3. Continue broad-spectrum antimicrobials as ordered. 4. Encourage incentive spirometer use and mobilize patient as tolerated. IMPRESSIONS: 1. Acute hypoxemic respiratory failure Likely multifactorial in etiology with community-acquired pneumonia and decompensated heart failure contributing. Plan to continue current supportive measures including BiPAP therapy, if needed, along with empiric antimicrobials and IV diuretic therapy, as tolerated by hemodynamics and renal function. Continue to wean supplemental oxygen to maintain saturations at or above 90%. Encourage incentive spirometer use and mobilize patient as tolerated. 2. History of diabetes mellitus/paroxysmal atrial fibrillation/hypertension/coronary artery disease/chronic kidney disease Complicates care, management, recovery and prognosis. Continue home medications as indicated. This note was generated with [employer] dictation software. It may contain incorrect words, spelling, and punctuation that were not noted in checking the note before signing. Subjective Subjective The patient was seen and examined at the bedside this morning. Events from the last 24 hours have been reviewed. The patient is currently afebrile, hemodynamically stable and maintaining appropriate oxygen saturations on 5 L/min via nasal cannula. Hemoglobin is stable at 8.4 g/dL. Creatinine has increased some this morning to 1.53. Objective Data Objective Data The patient's most recent lab work, culture data and imaging studies have all been personally reviewed. Surface echocardiogram demonstrated moderate concentric LVH with an ejection fraction of 60% and stage II diastolic dysfunction. Pulmonary artery systolic pressure was estimated to be 66 mmHg. The left atrium was severely enlarged. Vital Signs: Vital Signs Temp Pulse Resp BP Pulse Ox O2 Del Method O2 Flow Rate 98.7 F 102 H 20 H 146/65 H 96 Nasal Cannula 5 06/20/22 08:15 06/20/22 08:15 06/20/22 08:15 06/20/22 08:15 06/20/22 08:15 06/20/22 08:15 06/20/22 08:15 FiO2 30 06/20/22 01:58 Oxygen Flow Rate (L/min) 5 Oxygen Delivery Method Nasal Cannula Weight: 155 lb 6.814 oz Body Mass Index (BMI) 29.3 Intake & Output: Intake and Output for Last 24 Hours 11/02/22 11/03/22 11/04/22 23:59 23:59 23:59 Intake Total 1560 / 1560 78.96 / 78.96 Output Total 1625 / 1625 350 / 350 Balance -65 / -65 -271.04 / -271.04 Lab / Micro Data Attestation: I reviewed the patient's lab results. Result Diagrams: 06/20/22 06:52 06/20/22 06:52 Labs: Laboratory Results - last 24 hr 06/19/22 08:32: Retic Count 2.57 H, Immature Retic Fraction 31.40 H, Retic Hgb Equivalent 27.8 L 06/19/22 08:32: Hemoglobin A1c 8.1 H 06/19/22 08:32: Troponin I High Sens 28 06/19/22 10:35: Troponin I High Sens 27 06/19/22 11:04: POC Glucose 331 H 06/19/22 11:25: MRSA (PCR) Negative 06/19/22 16:08: POC Glucose 319 H 06/20/22 06:25: POC Glucose 328 H 06/20/22 06:52: WBC 8.2, RBC 2.89 L, Hgb 8.4 L, Hct 25.4 L, MCV 87.9, MCH 29.1, MCHC 33.1, RDW Std Deviation 53.1 H, RDW Coeff of Jesi 16.5 H, Plt Count 233, MPV 9.6, Immature Gran % (Auto) 0.600, Neut % (Auto) 94.1 H, Lymph % (Auto) 3.6 L, [place] % (Auto) 1.6, Eos % (Auto) 0.0, Baso % (Auto) 0.1, Absolute Neuts (auto) 7.7, Absolute Lymphs (auto) 0.30 L, Nucleated RBC % 0, Platelet Estimate ADEQUATE, Anisocytosis 1+, Microcytosis 1+ 06/20/22 06:52: Sodium 137, Potassium 3.9, Chloride 103, Carbon Dioxide 21.0, Anion Gap 13, BUN 37 H, Creatinine 1.53 H, Estim Creat Clear Calc 19.55, Est GFR (MDRD) Af Amer 41 L, Est GFR (MDRD) Non-Af 34 L, BUN/Creatinine Ratio 24.2 H, Glucose 341 H, Calcium 8.6, Phosphorus 3.6, Magnesium 2.4, Total Bilirubin 0.70, AST 13 L, ALT 19, Alkaline Phosphatase 112, Total Protein 6.5, Albumin 2.1 L, Globulin 4.4 H, Albumin/Globulin Ratio 0.5 L, TSH 0.34 L Micro: Microbiology 06/19/22 12:35 Mucosa - Nasopharyngeal Respiratory Panel (PCR) - Final 06/19/22 12:05 Urine, Random Streptococcus pneumoniae Antigen (M - Final 06/19/22 12:05 Urine, Random Legionella Antigen - Final 06/19/22 04:40 Nasal Secretion SARS-CoV-2 & FLU Antigen (Rapid) - Final Radiography Diagnostic Testing: Radiology Impression Chest X-Ray 06/19/22 04:47 IMPRESSION: Consider multifocal pneumonia with consolidation in the lung bases possible superimposed pleural effusion. Status post Tav. Electronically Signed: Oxana Rodriguez MD at 5:59 EDT Reading Location ID and State: [facility] / [place] Tel , Service support , Echocardiogram 06/19/22 08:02 Interpretation Summary Moderate concentric left ventricular hypertrophy. The left ventricular ejection fraction is 60 %. Stage 2 diastolic dysfunction. The left atrium is severely enlarged. The right atrium is moderately enlarged. Severe mitral annular calcification. Moderate mitral valve stenosis. Mild (1+) mitral valve insufficiency. Mild to moderate (1-2+) tricuspid valve insufficiency. Severe pulmonary hypertension. Bioprosthetic aortic valve mean peak gradient 23 mm Hg Ordering Physician: Chantal Nicholas Referring Physician: Baltazar Saleh Performed By: Blayne Roberts RCS Chest X-Ray 06/19/22 13:13 IMPRESSION: Bilateral pulmonary infiltrates superimposed on CHF. There has been mild improvement as compared to prior study. Electronically Signed: Randolph Fallon MD at 13:57 EDT , Rhythm Strip Rhythm Strip: Sinus Tach Rate: 110 Ectopy: None Physical Exam Const alert and no apparent distress General Appearance: cooperative HEENT normocephalic and head/scalp atraumatic Eyes PERRL, EOMs intact bilaterally and conjunctivae normal Neck supple General: trachea midline Chest inspection of chest normal Resp Effort and Inspection: able to speak in complete sentences and tachypneic Auscultation: diminished lung sounds Cardio regular rate and regular rhythm GI normal to inspection, nondistended, normoactive bowel sounds Extremity no clubbing, cyanosis or edema Skin no rashes or lesions noted Neuro oriented x3, CN's II-XII intact bilaterally and moves all extremities Psych cooperative and affect normal Charges/Coding Visit Charges Inpatient E&M: 85617 Subs Hosp L2
[2022-06-20] MEDS: Furosemide 40 MG/4 ML Vial IV ×3 (08:35→21:52)
[2022-06-20] MEDS: Metoprolol Tartrate 50 MG Tablet PO ×2 (08:36→21:50)
[2022-06-20] MEDS: Losartan Potassium 100 MG Tablet PO (08:36)
[2022-06-20] MEDS: Aspirin 81 MG TAB.CHEW PO (08:36)
[2022-06-20] MEDS: APIXABAN 2.5 MG TABLET PO ×2 (08:36→21:54)
[2022-06-20] MEDS: 0.9% Saline Lock 10 ML Syringe IV ×2 (08:38→16:10)
--- NOTE | 2022-06-20 13:15 | CASEMGMT ---
SW reviewed therapy notes and noted therapy is recommending half-way facility. SW was also notified patient wanted to complete advance directives. SW met with patient. Introduced self and role at [facility]. Patient confirmed she wants to do advance directives, but not right now. SW then explained to patient that it is being recommended she go to a half-way facility for short term rehab. Patient was agreeable, but she wanted to talk with her . SW let patient know SW will bring her a list of facilities. Patient then said she would probably want to go to [facility] as she knows someone that went there for rehab and they enjoyed it. Vitor reiterated she wanted to talk with her first. SW then provided a list of SNF providers including quality and resource use data and consistent with the patient?s preferred geographic region, medical needs, and insurance network were provided from the [facility]. SW asked patient if it would be okay if SW sent a referral to [facility] to see if they could take her. SW told her this does not commit her to going there or anywhere. Patient agreed to allow SW to make referral to [facility]. Patient then asked about insurance coverage. SW let patient know Medicare pays for days 1-20 at 100% and days 21-100 there is a daily co-pay of $190 something. However, patient's secondary would pear picker all or part of that co-pay. Patient thanked JANEL. JANEL let patient know that SW will check back with her tomorrow to see if she and her are agreeable to placement. JANEL notified Tati d/c emergency planning and response manager and she will work on referral. Plan: SNF pending being medically ready and accepting facility. Elisabeth MCMAHAN
[2022-06-20 13:20] LABS: Bedside Glucose 408 mg/dL (74-106)
--- NOTE | 2022-06-20 13:28 | CASEMGMT ---
Discharge Proof Coin Collector This specification writer sent a referral to Sydney at [facility] via [facility]. Ambrose ROQUE Power Transformer Repairer
[2022-06-20] MEDS: Albuterol 2.5 MG/3 ML VIAL.NEB. INHALATION (13:37)
--- NOTE | 2022-06-20 15:33 | CASEMGMT ---
Discharge Irrigation Manager Sydney at [facility] stated that [facility] can't accept admissions over the weekend. Sydney stated they would like to review notes on patient on Thursday before accepting due to her oxygen. JANEL Barber notified. This keno writer will follow up on Thursday06/23/2022 Ambrose ROQUE Wafer Fab Technician
--- NOTE | 2022-06-20 19:27 | NURSING ---
Charting reviewed with Russell Calloway RN
[2022-06-20] MEDS: Atorvastatin Calcium 40 MG Tablet PO (21:52)
[2022-06-20] MEDS: amLODIPine 10 MG Tablet PO (21:54)
[2022-06-20 22:30] LABS: Bedside Glucose 339 mg/dL (74-106)
[2022-06-21] VITALS (17 sets, daily range): BP systolic 132–155; BP diastolic 63–78; PULSE 86–154; RESP 16–24; TEMP 36.6–37.2; O2SAT 94–98
[2022-06-21] MEDS: guaiFENesin 10 ML UDC (200MG/10ML) 20 ML PO (00:58)
[2022-06-21] MEDS: Furosemide 40 MG/4 ML Vial IV ×2 (05:31→13:37)
--- NOTE | 2022-06-21 06:14 | PN.CC_ITS ---
Assessment & Plan Assessment/Plan (1) Acute hypoxemic respiratory failure: PLAN: Plan RECOMMENDATIONS: 1. Continue to wean supplemental oxygen to maintain saturations at or above 90%. 2. Continue diuresis as tolerated by hemodynamics and renal function. 3. Continue broad-spectrum antimicrobials as ordered. 4. Encourage incentive spirometer use and mobilize patient as tolerated. IMPRESSIONS: 1. Acute hypoxemic respiratory failure Likely multifactorial in etiology with community-acquired pneumonia and decompensated heart failure contributing. Plan to continue current supportive measures including supplemental oxygen, along with empiric antimicrobials and IV diuretic therapy, as tolerated by hemodynamics and renal function. Continue to wean supplemental oxygen to maintain saturations at or above 90%. Encourage incentive spirometer use and mobilize patient as tolerated. 2. History of diabetes mellitus/paroxysmal atrial fibrillation/hypertension/coronary artery disease/chronic kidney disease Complicates care, management, recovery and prognosis. Continue home medications as indicated. This note was generated with [employer] dictation software. It may contain incorrect words, spelling, and punctuation that were not noted in checking the note before signing. Subjective Subjective The patient was seen and examined at the bedside this morning. Events from the last 24 hours have been reviewed. The patient is currently afebrile, hemodynamically stable and maintaining appropriate oxygen saturations on 4 L/min via nasal cannula. The patient does report that her breathing quality has improved over the last 48 hours. Objective Data Objective Data The patient's most recent lab work, culture data and imaging studies have all been personally reviewed. Surface echocardiogram demonstrated moderate concentric LVH with an ejection fraction of 60% and stage II diastolic dysfunction. Pulmonary artery systolic pressure was estimated to be 66 mmHg. The left atrium was severely enlarged. Vital Signs: Vital Signs Temp Pulse Resp BP Pulse Ox O2 Del Method O2 Flow Rate 98.5 F 99 19 H 155/78 H 94 Nasal Cannula 5 06/21/22 05:20 06/21/22 05:20 06/21/22 05:20 06/21/22 05:20 06/21/22 05:20 06/21/22 05:20 06/21/22 05:20 FiO2 30 06/20/22 01:58 Oxygen Flow Rate (L/min) 5 Oxygen Delivery Method Nasal Cannula Weight: 155 lb 6.814 oz Body Mass Index (BMI) 29.3 Intake & Output: Intake and Output for Last 24 Hours 11/11/0506/20/22 06/21/22 23:59 23:59 23:59 Intake Total 1560 / 1560 1055.00 / 1055.00 Output Total 1625 / 1625 1600 / 1600 Balance -65 / -65 -545.00 / -545.00 Lab / Micro Data Attestation: I reviewed the patient's lab results. Result Diagrams: 06/20/22 06:52 06/20/22 06:52 Labs: Laboratory Results - last 24 hr 06/20/22 06:25: POC Glucose 328 H 06/20/22 06:52: WBC 8.2, RBC 2.89 L, Hgb 8.4 L, Hct 25.4 L, MCV 87.9, MCH 29.1, MCHC 33.1, RDW Std Deviation 53.1 H, RDW Coeff of Jesi 16.5 H, Plt Count 233, MPV 9.6, Immature Gran % (Auto) 0.600, Neut % (Auto) 94.1 H, Lymph % (Auto) 3.6 L, [place] % (Auto) 1.6, Eos % (Auto) 0.0, Baso % (Auto) 0.1, Absolute Neuts (auto) 7.7, Absolute Lymphs (auto) 0.30 L, Nucleated RBC % 0, Platelet Estimate ADEQUATE, Anisocytosis 1+, Microcytosis 1+ 06/20/22 06:52: Sodium 137, Potassium 3.9, Chloride 103, Carbon Dioxide 21.0, Anion Gap 13, BUN 37 H, Creatinine 1.53 H, Estim Creat Clear Calc 19.55, Est GFR (MDRD) Af Amer 41 L, Est GFR (MDRD) Non-Af 34 L, BUN/Creatinine Ratio 24.2 H, Glucose 341 H, Calcium 8.6, Phosphorus 3.6, Magnesium 2.4, Total Bilirubin 0.70, AST 13 L, ALT 19, Alkaline Phosphatase 112, Total Protein 6.5, Albumin 2.1 L, Globulin 4.4 H, Albumin/Globulin Ratio 0.5 L, TSH 0.34 L 06/20/22 12:54: POC Glucose 408 H 06/20/22 16:25: POC Glucose 339 H Micro: Microbiology 06/19/22 12:35 Mucosa - Nasopharyngeal Respiratory Panel (PCR) - Final 06/19/22 12:05 Urine, Random Streptococcus pneumoniae Antigen (M - Final 06/19/22 12:05 Urine, Random Legionella Antigen - Final 06/19/22 04:40 Nasal Secretion SARS-CoV-2 & FLU Antigen (Rapid) - Final Radiography Diagnostic Testing: Radiology Impression Chest X-Ray 06/19/22 04:47 IMPRESSION: Consider multifocal pneumonia with consolidation in the lung bases possible superimposed pleural effusion. Status post Tav. Electronically Signed: Oxana Rodriguez MD at 5:59 EDT , Echocardiogram 06/19/22 08:02 Interpretation Summary Moderate concentric left ventricular hypertrophy. The left ventricular ejection fraction is 60 %. Stage 2 diastolic dysfunction. The left atrium is severely enlarged. The right atrium is moderately enlarged. Severe mitral annular calcification. Moderate mitral valve stenosis. Mild (1+) mitral valve insufficiency. Mild to moderate (1-2+) tricuspid valve insufficiency. Severe pulmonary hypertension. Bioprosthetic aortic valve mean peak gradient 23 mm Hg Ordering Physician: Chantal Nicholas Referring Physician: Baltazar Saleh Performed By: Blayne Roberts RCS Chest X-Ray 06/19/22 13:13 IMPRESSION: Bilateral pulmonary infiltrates superimposed on CHF. There has been mild improvement as compared to prior study. Electronically Signed: Randolph Fallon MD at 13:57 EDT , Rhythm Strip Rhythm Strip: Sinus Tach Rate: 110 Ectopy: None Physical Exam Const alert and no apparent distress General Appearance: cooperative HEENT normocephalic and head/scalp atraumatic Eyes PERRL, EOMs intact bilaterally and conjunctivae normal Neck supple General: trachea midline Chest inspection of chest normal Resp normal respiratory effort Resp Narrative: Mild basilar rales. Effort and Inspection: able to speak in complete sentences Cardio regular rate and regular rhythm GI normal to inspection, nondistended, normoactive bowel sounds Extremity no clubbing, cyanosis or edema Skin no rashes or lesions noted Neuro oriented x3, CN's II-XII intact bilaterally and moves all extremities Psych cooperative and affect normal Charges/Coding Visit Charges Inpatient E&M: 52852 Subs Hosp L2
[2022-06-21] MEDS: Insulin Lispro 100 UNIT/ML INSULN.PEN SC ×2 (06:35→16:24)
[2022-06-21] MEDS: Ipratropium/Albuterol Sulfate 3 ML AMPUL.NEB INHALATION ×3 (07:21→19:41)
[2022-06-21 07:40] LABS: Bedside Glucose 406 mg/dL (74-106)
[2022-06-21 07:52] LABS: Absolute Lymphocyte Count 0.35 X10^3/uL (0.83-4.51); Absolute Neutrophil Count 11.5 X10^3/uL (2.0-7.7); Hematocrit 26.7 % (37-47); Hemoglobin 8.8 g/dL (12.0-15.0); Lymphocyte # 0.35 X10^3/ul (0.83-4.51); Lymphocyte % 2.9 % (19-41); Mean Corpuscular Hgb 28.8 pg (27.0-32.0); Mean Corpuscular Volume 87.3 fL (81-99); Mean Platelet Vol. 9.7 fl (6.2-12.0); Monocyte# 0.37 X10^3/uL; NRBC Flagged by Analyzer 0 % (0-5); Neutrophil # 11.46 X10^3/uL (2.7-7.7); Neutrophil % 93.5 % (47-70); POSITIVE DIFFERENTIAL YES; Platelet Count 300 K/mm3 (150-450); RBC Distribution Width CV 16.5 % (11.6-14.6); RBC Distribution Width SD 52.1 fl (35.1-43.9); Red Blood Count 3.06 M/mm3 (4.2-5.4); White Blood Count 12.3 K/mm3 (4.4-11.0)
[2022-06-21 07:58] LABS: Differential Indicated SCAN CRITERIA MET
[2022-06-21 08:07] LABS: Anion Gap 8 (5-15); BUN 52 mg/dL (7-18); BUN/Creat Ratio 28.4 RATIO (10-20); Calcium,Total 8.6 mg/dL (8.5-10.1); Chloride 103 mmol/L (98-107); Creatinine, Serum 1.83 mg/dL (0.55-1.02); EST Glomerular Filtration Rate 28 mL/min (>60); Est Glom Filt Rate - Afr Amer 34 mL/min (>60); Estimated Creatinine Clearance 16.34 ml/min; Glucose 409 mg/dL (74-106); Magnesium 2.3 mg/dL (1.6-2.6); Phosphorus 3.7 mg/dL (2.5-4.9); Potassium 3.5 mmol/L (3.5-5.1); Sodium Level 135 mmol/L (136-145)
[2022-06-21] MEDS: APIXABAN 2.5 MG TABLET PO ×2 (09:44→21:06)
[2022-06-21] MEDS: Metoprolol Tartrate 50 MG Tablet PO ×2 (09:44→21:06)
[2022-06-21] MEDS: Losartan Potassium 100 MG Tablet PO (09:44)
[2022-06-21] MEDS: Aspirin 81 MG TAB.CHEW PO (09:44)
[2022-06-21 11:07] LABS: Differential Comment SCANNED
[2022-06-21 11:46] LABS: Bedside Glucose 457 mg/dL (74-106)
[2022-06-21] MEDS: Insulin Lispro 100 UNIT/ML INSULN.PEN 10 UNIT SC (11:59)
[2022-06-21] MEDS: 0.9% Saline Lock 10 ML Syringe IV ×3 (13:38→23:24)
--- NOTE | 2022-06-21 13:54 | CASEMGMT ---
JANEL Note SW spoke to patient about her discharge plan and that she spoke to the PCU social science research assistant about [facility]. Patient said I didn't say I would go. Patient said that she wants to go home at discharge with home health. Patient said that she is interested in home health aide and this bond underwriter said that home health aides are private pay. Patient voiced her plan at discharge is to go home. Leena MONTES
--- NOTE | 2022-06-21 14:42 | PN.HOSP_ITS ---
Subjective Subjective Patient seen and examined. She feels better. Her breathing has improved. She denies any cough, chest pain, palpitations, dizziness, nausea vomiting or diarrhea. Review of systems otherwise negative. Objective Data Objective Data Vital Signs: Vital Signs Temp Pulse Resp BP Pulse Ox O2 Del Method O2 Flow Rate 98.0 F 96 20 H 132/63 H 94 Nasal Cannula 2 06/21/22 09:43 06/21/22 13:11 06/21/22 13:11 06/21/22 09:43 06/21/22 09:43 06/21/22 14:09 06/21/22 14:09 FiO2 30 06/20/22 01:58 Oxygen Flow Rate (L/min) 2 Oxygen Delivery Method Nasal Cannula Weight: 154 lb 1.65 oz Body Mass Index (BMI) 29.3 Intake & Output: Intake and Output for Last 24 Hours 06/19/22 06/20/22 06/21/22 23:59 23:59 23:59 Intake Total 1560 / 1560 1055.00 / 1055.00 460 / 460 Output Total 1625 / 1625 1600 / 1600 550 / 550 Balance -65 / -65 -545.00 / -545.00 -90 / -90 Lab / Micro Data Result Diagrams: 06/21/22 07:27 06/21/22 07:27 Labs: Laboratory Results - last 24 hr 06/20/22 16:25: POC Glucose 339 H 06/21/22 06:33: POC Glucose 406 H 06/21/22 07:27: WBC 12.3 H, RBC 3.06 L, Hgb 8.8 L, Hct 26.7 L, MCV 87.3, MCH 28.8, MCHC 33.0, RDW Std Deviation 52.1 H, RDW Coeff of Jesi 16.5 H, Plt Count 300, MPV 9.7, Immature Gran % (Auto) 0.600, Neut % (Auto) 93.5 H, Lymph % (Auto) 2.9 L, [place] % (Auto) 3.0, Eos % (Auto) 0.0, Baso % (Auto) 0.0, Absolute Neuts (auto) 11.5 H, Absolute Lymphs (auto) 0.35 L, Nucleated RBC % 0, Differential Comment SCANNED 06/21/22 07:27: Sodium 135 L, Potassium 3.5, Chloride 103, Carbon Dioxide 24.0, Anion Gap 8, BUN 52 H, Creatinine 1.83 H, Estim Creat Clear Calc 16.34, Est GFR (MDRD) Af Amer 34 L, Est GFR (MDRD) Non-Af 28 L, BUN/Creatinine Ratio 28.4 H, Glucose 409 H, Calcium 8.6, Phosphorus 3.7, Magnesium 2.3 06/21/22 11:26: POC Glucose 457 H* Micro: Microbiology 06/19/22 12:35 Mucosa - Nasopharyngeal Respiratory Panel (PCR) - Final 06/19/22 12:05 Urine, Random Streptococcus pneumoniae Antigen (M - Final 06/19/22 12:05 Urine, Random Legionella Antigen - Final 06/19/22 04:40 Nasal Secretion SARS-CoV-2 & FLU Antigen (Rapid) - Final Rhythm Strip Rhythm Strip: Sinus Tach Rate: 110 Ectopy: None Physical Exam Const alert, oriented x3 and no apparent distress HEENT head/scalp atraumatic and moist oral mucous membranes Head and Scalp: normocephalic Mouth: oral and palatal mucosa normal Eyes PERRL, EOMs intact bilaterally and conjunctivae normal Neck no lymphadenopathy and supple Resp Resp Narrative: diminished breath sounds bibasally, no wheezes or crackles. On 4L of oxygen by nasal canula Cardio regular rate, regular rhythm, S1 normal heart sound, S2 normal heart sound and no murmurs GI normal to inspection, nondistended, normoactive bowel sounds, soft to palpation, non-tender and non-distended Extremity normal to inspection, full ROM and no clubbing, cyanosis or edema Neuro oriented x3, CN's II-XII intact bilaterally, moves all extremities and no focal motor deficits Sensorium / Orientation: awake and alert Motor Exam: strength 5/5 throughout Psych affect normal Assessment & Plan Assessment/Plan (1) Decompensated heart failure: (2) Pneumonia: (3) Acute hypoxemic respiratory failure: PLAN: Plan #Acute hypoxic respiratory failure * Due to decompensated heart failure with reduced ejection fraction as well as community-acquired pneumonia. * Being diuresed with IV Lasix. Monitor intake and output. Fluid restriction at 1500 cc daily * On IV vancomycin and zosyn * 2D echo from 07/08 showed EF of 60% with moderate segmental systolic dysfunction and stage II diastolic dysfunction as well as severely enlarged left atrium and moderate mitral valve stenosis as well as severe pulmonary h ypertension * #Acute on chronic heart failure with reduced action fraction: As above #Community-acquired pneumonia: As above #Hypertension: Controlled. On amlodipine and losartan #Type 2 diabetes mellitus: nsulin sliding scale. Accu-Cheks ACH S. #Paroxysmal A. fib: Rate controlled. On systemic anticoagulation with Eliquis #CAD cardiac cath in September 2021 showed severe [place] vessel CAD. Could not have stent placed as they could not traverse the area of stenosis. On medical management. #Renal artery stenosis: Stable. #CKD stage IIIb: Creatinine at baseline DVT prophylaxis: On Eliquis
--- NOTE | 2022-06-21 14:53 | CASEMGMT ---
Addendum entered by Leena Morel 06/21/22 16:42: JANEL met with patient and her . SW reviewed patient's OT/PT notes and that they are recommending SNF/TCU. SW reviewed TCU as an option available. Patient and her voiced that they want to go to [facility]. Leena MONTES Original Note: JANEL reviewed today's PT/OT note that recommends TCU or SNF. JANEL updated patient. She was educated on TCU and stated that she would benefit from rehab. Patient wanted to see unit and JANEL said that this justowriter operator could not show her the unit but gave patient a brochure. Patient was given brochure. She inquired about visiting hours. SW called TCU and got the current visiting hours. Patient said that she needs to speak to her regarding SNF. BROWN SUMMERS updated Leena MONTES
[2022-06-21 15:45] LABS: Vancomycin, Trough Level 19.7 ug/mL (5.0-15.0)
[2022-06-21 16:51] LABS: Bedside Glucose 353 mg/dL (74-106)
--- NOTE | 2022-06-21 16:51 | PCM.RX.CS ---
Consult Pharmacy has been consulted to manage selected antiobiotic: Vancomycin Type of Consult: Follow-up Prior Doses of Antibiotics Received/Current Regimen: current dose is vanc 750mg IV q24h Labs: Sodium 135 mmol/L (136-145) L 06/21/22 07:27 Potassium 3.5 mmol/L (3.5-5.1) 06/21/22 07:27 Chloride 103 mmol/L (98-107) 06/21/22 07:27 Carbon Dioxide 24.0 mmol/L (21.0-32.0) 06/21/22 07:27 Anion Gap 8 (5-15) 06/21/22 07:27 BUN 52 mg/dL (7-18) H 06/21/22 07:27 Creatinine 1.83 mg/dL (0.55-1.02) H 06/21/22 07:27 Est GFR (MDRD) Af Amer 34 mL/min (>60) L 06/21/22 07:27 Est GFR (MDRD) Non-Af 28 mL/min (>60) L 06/21/22 07:27 BUN/Creatinine Ratio 28.4 RATIO (10-20) H 06/21/22 07:27 Glucose 409 mg/dL (74-106) H 06/21/22 07:27 Vancomycin Trough 19.7 ug/mL (5.0-15.0) H 06/21/22 14:45 Microbiology: Microbiology 06/19/22 12:35 Mucosa - Nasopharyngeal Respiratory Panel (PCR) - Final 06/19/22 12:05 Urine, Random Streptococcus pneumoniae Antigen (M - Final 06/19/22 12:05 Urine, Random Legionella Antigen - Final 06/19/22 04:40 Nasal Secretion SARS-CoV-2 & FLU Antigen (Rapid) - Final Weight used for dosin.9 kg Estimated Creatinine Clearance: 19.4ml/min Goal Trough: 15-20 mcg/mL Pharmacy Plan for Drug Dosing: The vanc trough drawn at 14:45 today (approx 23 hours after the previous dose) was 19.7. This is within goal range so gave the nurse the ok to hang the next 750mg dose today. However, will hold further dosing after that since the patient's SCr went up to 1.83 today (up from 1.53 yesterday) and CrCl is now 19.4ml/min (calculated using an adjusted body weight). Will order a random level to be drawn tomorrow 24 hours after today's dose and use that result to determine if a dose should be given tomorrow. Pharmacy Service will continue to monitor and adjust dosing as required. Follow-Up Labs: Trough Vancomycin - random Labs to be done on [date and time ordered]: 06/22/22 16:00
[2022-06-21] MEDS: Atorvastatin Calcium 40 MG Tablet PO (21:06)
[2022-06-21] MEDS: amLODIPine 10 MG Tablet PO (21:07)
--- NOTE | 2022-06-21 21:20 | EKG12_ITS ---
Test Reason : RHYTHM CHANGE Blood Pressure : / mmHG Vent. Rate : 136 BPM Atrial Rate : 000 BPM P-R Int : 000 ms QRS Dur : 072 ms QT Int : 306 ms P-R-T Axes : 000 -20 138 degrees QTc Int : 460 ms Atrial fibrillation with rapid ventricular response Moderate voltage criteria for LVH, may be normal variant ( R in aVL , [facility] product ) Marked ST abnormality, possible lateral subendocardial injury Abnormal ECG When compared with ECG of 19-JUN-2022 04:35, MANUAL COMPARISON REQUIRED, DATA IS UNCONFIRMED Confirmed by ELVA ARMENTA, NORM ([id number]), photo editor SARAH GAVIRIA ([id number]) on 06/24/2022 1:17:50 PM Referred By: JORGE ALBERTO Confirmed By:NORM STEVENSON MD
[2022-06-21] MEDS: Metoprolol Tartrate 5 MG/5 ML Vial IV (23:20)
[2022-06-21 23:51] LABS: Bedside Glucose 267 mg/dL (74-106)
[2022-06-22] VITALS (16 sets, daily range): BP systolic 134–159; BP diastolic 57–88; PULSE 89–109; RESP 16–20; TEMP 36.6–37; O2SAT 90–98
[2022-06-22] MEDS: Insulin Lispro 100 UNIT/ML INSULN.PEN SC ×3 (06:39→16:55)
[2022-06-22] MEDS: 0.9% Saline Lock 10 ML Syringe IV ×4 (06:42→22:08)
[2022-06-22 06:59] LABS: Absolute Lymphocyte Count 0.44 X10^3/uL (0.83-4.51); Absolute Neutrophil Count 9.7 X10^3/uL (2.0-7.7); Basophil# 0.01 X10^3/uL; Basophil% 0.1 % (0-1); Hematocrit 25.9 % (37-47); Hemoglobin 8.5 g/dL (12.0-15.0); Lymphocyte # 0.44 X10^3/ul (0.83-4.51); Lymphocyte % 4.1 % (19-41); Mean Corp Hgb Conc 32.8 g/dL (32-36); Mean Corpuscular Hgb 28.8 pg (27.0-32.0); Mean Corpuscular Volume 87.8 fL (81-99); Mean Platelet Vol. 9.5 fl (6.2-12.0); Monocyte# 0.68 X10^3/uL; Monocyte% 6.3 % (0-10); NRBC Flagged by Analyzer 0 % (0-5); Neutrophil # 9.68 X10^3/uL (2.7-7.7); POSITIVE DIFFERENTIAL YES; Platelet Count 309 K/mm3 (150-450); RBC Distribution Width CV 16.8 % (11.6-14.6); RBC Distribution Width SD 52.7 fl (35.1-43.9); Red Blood Count 2.95 M/mm3 (4.2-5.4); White Blood Count 10.9 K/mm3 (4.4-11.0)
[2022-06-22 07:07] LABS: Differential Indicated SCAN CRITERIA MET
[2022-06-22 07:10] LABS: Bedside Glucose 323 mg/dL (74-106)
[2022-06-22 07:23] LABS: Anion Gap 12 (5-15); BUN 59 mg/dL (7-18); Calcium,Total 8.5 mg/dL (8.5-10.1); Chloride 103 mmol/L (98-107); Creatinine, Serum 1.79 mg/dL (0.55-1.02); EST Glomerular Filtration Rate 28 mL/min (>60); Est Glom Filt Rate - Afr Amer 34 mL/min (>60); Estimated Creatinine Clearance 16.71 ml/min; Glucose 353 mg/dL (74-106); Potassium 3.5 mmol/L (3.5-5.1); Sodium Level 139 mmol/L (136-145)
[2022-06-22] MEDS: Ipratropium/Albuterol Sulfate 3 ML AMPUL.NEB INHALATION ×3 (07:23→19:58)
--- NOTE | 2022-06-22 07:31 | PCM.PN.INT ---
Assessment & Plan Assessment/Plan (1) Acute hypoxemic respiratory failure: PLAN: Plan RECOMMENDATIONS: 1. Continue to wean supplemental oxygen to maintain saturations at or above 90%. 2. Continue diuresis as tolerated by hemodynamics and renal function. 3. Continue broad-spectrum antimicrobials as ordered. 4. Encourage incentive spirometer use and mobilize patient as tolerated. IMPRESSIONS: 1. Acute hypoxemic respiratory failure Likely multifactorial in etiology with community-acquired pneumonia and decompensated heart failure contributing. Plan to continue current supportive measures including supplemental oxygen, along with empiric antimicrobials and IV diuretic therapy, as tolerated by hemodynamics and renal function. Continue to wean supplemental oxygen to maintain saturations at or above 90%. Encourage incentive spirometer use and mobilize patient as tolerated. 2. History of diabetes mellitus/paroxysmal atrial fibrillation/hypertension/coronary artery disease/chronic kidney disease Complicates care, management, recovery and prognosis. Continue home medications as indicated. This note was generated with [employer] dictation software. It may contain incorrect words, spelling, and punctuation that were not noted in checking the note before signing. Subjective Subjective The patient was seen and examined at the bedside this morning. Events from the last 24 hours have been reviewed. The patient is currently afebrile, hemodynamically stable and maintaining appropriate oxygen saturations on 2 L/min via nasal cannula. The patient is currently documented to be overall net -1.7 L for the hospitalization. Hemoglobin is stable at 8.5 g/dL. Creatinine is stable at 1.79. Objective Data Objective Data The patient's most recent lab work, culture data and imaging studies have all been personally reviewed. Surface echocardiogram demonstrated moderate concentric LVH with an ejection fraction of 60% and stage II diastolic dysfunction. Pulmonary artery systolic pressure was estimated to be 66 mmHg. The left atrium was severely enlarged. Vital Signs: Vital Signs Temp Pulse Resp BP Pulse Ox O2 Del Method O2 Flow Rate 97.8 F 91 18 139/68 H 95 Nasal Cannula 2 06/22/22 06:00 06/22/22 07:00 06/22/22 06:00 06/22/22 06:00 06/22/22 06:00 06/22/22 06:00 06/22/22 06:00 FiO2 30 06/20/22 01:58 Oxygen Flow Rate (L/min) 2 Oxygen Delivery Method Nasal Cannula Weight: 154 lb 8.705 oz Body Mass Index (BMI) 29.3 Intake & Output: Intake and Output for Last 24 Hours 06/20/22 06/21/22 06/22/22 23:59 23:59 22:59 Intake Total 1055.00 / 1055.00 1205 / 1205 50 / 50 Output Total 1600 / 1600 1225 / 1825 1100 / 1100 Balance -545.00 / -545.00 -20 / -620 -1050 / -1050 Lab / Micro Data Attestation: I reviewed the patient's lab results. Result Diagrams: 06/22/22 06:25 06/22/22 06:25 Labs: Laboratory Results - last 24 hr 06/21/22 07:27: Differential Comment SCANNED 06/21/22 11:26: POC Glucose 457 H* 06/21/22 14:45: Vancomycin Trough 19.7 H 06/21/22 16:23: POC Glucose 353 H 06/21/22 23:28: POC Glucose 267 H 06/22/22 06:25: WBC 10.9, RBC 2.95 L, Hgb 8.5 L, Hct 25.9 L, MCV 87.8, MCH 28.8, MCHC 32.8, RDW Std Deviation 52.7 H, RDW Coeff of Jesi 16.8 H, Plt Count 309, MPV 9.5, Immature Gran % (Auto) 0.500, Neut % (Auto) 89.0 H, Lymph % (Auto) 4.1 L, [place] % (Auto) 6.3, Eos % (Auto) 0.0, Baso % (Auto) 0.1, Absolute Neuts (auto) 9.7 H, Absolute Lymphs (auto) 0.44 L, Nucleated RBC % 0 06/22/22 06:25: Sodium 139, Potassium 3.5, Chloride 103, Carbon Dioxide 24.0, Anion Gap 12, BUN 59 H, Creatinine 1.79 H, Estim Creat Clear Calc 16.71, Est GFR (MDRD) Af Amer 34 L, Est GFR (MDRD) Non-Af 28 L, BUN/Creatinine Ratio 33.0 H, Glucose 353 H, Calcium 8.5 06/22/22 06:38: POC Glucose 323 H Micro: Microbiology 06/19/22 12:35 Mucosa - Nasopharyngeal Respiratory Panel (PCR) - Final 06/19/22 12:05 Urine, Random Streptococcus pneumoniae Antigen (M - Final 06/19/22 12:05 Urine, Random Legionella Antigen - Final 06/19/22 04:40 Nasal Secretion SARS-CoV-2 & FLU Antigen (Rapid) - Final Radiography Diagnostic Testing: Radiology Impression Chest X-Ray 06/19/22 04:47 IMPRESSION: Consider multifocal pneumonia with consolidation in the lung bases possible superimposed pleural effusion. Status post Tav. Electronically Signed: Oxana Rodriguez MD at 5:59 EDT , Echocardiogram 06/19/22 08:02 Interpretation Summary Moderate concentric left ventricular hypertrophy. The left ventricular ejection fraction is 60 %. Stage 2 diastolic dysfunction. The left atrium is severely enlarged. The right atrium is moderately enlarged. Severe mitral annular calcification. Moderate mitral valve stenosis. Mild (1+) mitral valve insufficiency. Mild to moderate (1-2+) tricuspid valve insufficiency. Severe pulmonary hypertension. Bioprosthetic aortic valve mean peak gradient 23 mm Hg Ordering Physician: Chantal Nicholas Referring Physician: Baltazar Saleh Performed By: Blayne Roberts RCS Chest X-Ray 06/19/22 13:13 IMPRESSION: Bilateral pulmonary infiltrates superimposed on CHF. There has been mild improvement as compared to prior study. Electronically Signed: Randolph Fallon MD at 13:57 EDT , Rhythm Strip Rhythm Strip: Sinus Tach Rate: 110 Ectopy: None Physical Exam Const alert and no apparent distress General Appearance: cooperative HEENT normocephalic and head/scalp atraumatic Eyes PERRL, EOMs intact bilaterally and conjunctivae normal Neck supple General: trachea midline Chest inspection of chest normal Resp normal respiratory effort Resp Narrative: Mild basilar rales. Effort and Inspection: able to speak in complete sentences Cardio regular rate and regular rhythm GI normal to inspection, nondistended, normoactive bowel sounds Extremity no clubbing, cyanosis or edema Skin no rashes or lesions noted Neuro oriented x3, CN's II-XII intact bilaterally and moves all extremities Psych cooperative and affect normal Charges/Coding Visit Charges Inpatient E&M: 68243 Subs Hosp L2
[2022-06-22 09:06] LABS: Differential Comment SCANNED
[2022-06-22] MEDS: Aspirin 81 MG TAB.CHEW PO (09:35)
[2022-06-22] MEDS: Furosemide 40 MG/4 ML Vial IV (09:35)
[2022-06-22] MEDS: Losartan Potassium 100 MG Tablet PO (09:35)
[2022-06-22] MEDS: APIXABAN 2.5 MG TABLET PO ×2 (09:36→22:05)
[2022-06-22] MEDS: Metoprolol Tartrate 50 MG Tablet PO ×2 (09:36→22:06)
--- NOTE | 2022-06-22 10:34 | PN.HOSP_ITS ---
Subjective Subjective Patient seen and examined. She feels well today and has no active complaints. She had an uneventful night and review of systems otherwise negative. She has remained hemodynamically stable. Objective Data Objective Data Vital Signs: Vital Signs Temp Pulse Resp BP Pulse Ox O2 Del Method O2 Flow Rate 98.4 F 103 H 16 134/57 H 90 Room Air 2 06/22/22 09:32 06/22/22 09:36 06/22/22 09:32 06/22/22 09:32 06/22/22 09:42 06/22/22 09:42 06/22/22 09:32 FiO2 30 06/20/22 01:58 Oxygen Flow Rate (L/min) 2 Oxygen Delivery Method Room Air Weight: 154 lb 8.705 oz Body Mass Index (BMI) 29.3 Intake & Output: Intake and Output for Last 24 Hours 06/20/22 06/21/22 06/22/22 23:59 23:59 22:59 Intake Total 1055.00 / 1055.00 1205 / 1205 50 / 50 Output Total 1600 / 1600 1225 / 1825 1100 / 1100 Balance -545.00 / -545.00 -20 / -620 -1050 / -1050 Lab / Micro Data Result Diagrams: 06/22/22 06:25 06/22/22 06:25 Labs: Laboratory Results - last 24 hr 06/21/22 11:26: POC Glucose 457 H* 06/21/22 14:45: Vancomycin Trough 19.7 H 06/21/22 16:23: POC Glucose 353 H 06/21/22 23:28: POC Glucose 267 H 06/22/22 06:25: WBC 10.9, RBC 2.95 L, Hgb 8.5 L, Hct 25.9 L, MCV 87.8, MCH 28.8, MCHC 32.8, RDW Std Deviation 52.7 H, RDW Coeff of Jesi 16.8 H, Plt Count 309, MPV 9.5, Immature Gran % (Auto) 0.500, Neut % (Auto) 89.0 H, Lymph % (Auto) 4.1 L, [place] % (Auto) 6.3, Eos % (Auto) 0.0, Baso % (Auto) 0.1, Absolute Neuts (auto) 9.7 H, Absolute Lymphs (auto) 0.44 L, Nucleated RBC % 0, Differential Comment SC ANNED 06/22/22 06:25: Sodium 139, Potassium 3.5, Chloride 103, Carbon Dioxide 24.0, Anion Gap 12, BUN 59 H, Creatinine 1.79 H, Estim Creat Clear Calc 16.71, Est GFR (MDRD) Af Amer 34 L, Est GFR (MDRD) Non-Af 28 L, BUN/Creatinine Ratio 33.0 H, Glucose 353 H, Calcium 8.5 06/22/22 06:38: POC Glucose 323 H Micro: Microbiology 06/19/22 12:35 Mucosa - Nasopharyngeal Respiratory Panel (PCR) - Final 06/19/22 12:05 Urine, Random Streptococcus pneumoniae Antigen (M - Final 06/19/22 12:05 Urine, Random Legionella Antigen - Final 06/19/22 04:40 Nasal Secretion SARS-CoV-2 & FLU Antigen (Rapid) - Final Rhythm Strip Rhythm Strip: Sinus Tach Rate: 110 Ectopy: None Physical Exam Const alert, oriented x3 and no apparent distress General Appearance: cooperative HEENT normocephalic, head/scalp atraumatic and moist oral mucous membranes Head and Scalp: normocephalic Mouth: oral and palatal mucosa normal Eyes PERRL, EOMs intact bilaterally and conjunctivae normal Neck no lymphadenopathy and supple Resp normal respiratory effort, no retractions and no use of accessory muscles Resp Narrative: on room air today Cardio regular rate, regular rhythm, S1 normal heart sound, S2 normal heart sound, no murmurs, no rub, no gallops and no clicks GI normal to inspection, nondistended, normoactive bowel sounds, soft to palpation, non-tender and non-distended; Negative for hepatosplenomegaly Extremity normal to inspection, full ROM and no clubbing, cyanosis or edema Skin no rashes or lesions noted, no wounds, skin turgor normal, no jaundice, no petechiae and no mottling Neuro oriented x3, CN's II-XII intact bilaterally, moves all extremities and no focal motor deficits Sensorium / Orientation: awake and alert Speech: speech normal Motor Exam: strength 5/5 throughout Psych affect normal Assessment & Plan Assessment/Plan (1) Decompensated heart failure: (2) Pneumonia: (3) Acute hypoxemic respiratory failure: PLAN: Plan #Acute hypoxic respiratory failure * Due to decompensated heart failure with reduced ejection fraction as well as community-acquired pneumonia. * Being diuresed with IV Lasix. Monitor intake and output. Fluid restriction at 1500 cc daily * On IV vancomycin and zosyn * 2D echo from 07/08 showed EF of 60% with moderate segmental systolic dysfunction and stage II diastolic dysfunction as well as severely enlarged left atrium and moderate mitral valve stenosis as well as severe pulmonary hypertension * will switch to oral lasix as she is now off oxygen and on room air. * #Acute on chronic heart failure with reduced action fraction: As above #Community-acquired pneumonia: As above #Hypertension: Controlled. On amlodipine and losartan #Type 2 diabetes mellitus: nsulin sliding scale. Accu-Cheks ACH S. #Paroxysmal A. fib: Rate controlled. On systemic anticoagulation with Eliquis #CAD * cardiac cath in September 2021 showed severe [place] vessel CAD. * Could not have stent placed as they could not traverse the area of stenosis. * On medical management. #Renal artery stenosis: Stable. #CKD stage IIIb: Creatinine at baseline DVT prophylaxis: On Eliquis Disposition: awaiting placement, likely tomorrow Charges/Coding Visit Charges Inpatient E&M: 10797 Subs Hosp L2
[2022-06-22 11:56] LABS: Bedside Glucose 397 mg/dL (74-106)
--- NOTE | 2022-06-22 16:45 | PCM.RX.CS ---
Consult Pharmacy has been consulted to manage selected antiobiotic: Vancomycin Type of Consult: Follow-up Prior Doses of Antibiotics Received/Current Regimen: the patient had been on 750mg q24h until that was held after yesterday's dose due to decreased renal function Labs: Sodium 139 mmol/L (136-145) 06/22/22 06:25 Potassium 3.5 mmol/L (3.5-5.1) 06/22/22 06:25 Chloride 103 mmol/L (98-107) 06/22/22 06:25 Carbon Dioxide 24.0 mmol/L (21.0-32.0) 06/22/22 06:25 Anion Gap 12 (5-15) 06/22/22 06:25 BUN 59 mg/dL (7-18) H 06/22/22 06:25 Creatinine 1.79 mg/dL (0.55-1.02) H 06/22/22 06:25 Est GFR (MDRD) Af Amer 34 mL/min (>60) L 06/22/22 06:25 Est GFR (MDRD) Non-Af 28 mL/min (>60) L 06/22/22 06:25 BUN/Creatinine Ratio 33.0 RATIO (10-20) H 06/22/22 06:25 Glucose 353 mg/dL (74-106) H 06/22/22 06:25 Vancomycin Trough 19.7 ug/mL (5.0-15.0) H 06/21/22 14:45 Random Vancomycin 19.0 ug/mL (0.0-15.0) H 06/22/22 15:50 Microbiology: Microbiology 06/21/22 02:40 Sputum, Expectorated/Coughed Gram Stain - Final 06/21/22 02:40 Sputum, Expectorated/Coughed Respiratory Culture - Preliminary Appears to be normal respiratory eriberto. Further studies to follow. 06/19/22 12:35 Mucosa - Nasopharyngeal Respiratory Panel (PCR) - Final 06/19/22 12:05 Urine, Random Streptococcus pneumoniae Antigen (M - Final 06/19/22 12:05 Urine, Random Legionella Antigen - Final 06/19/22 04:40 Nasal Secretion SARS-CoV-2 & FLU Antigen (Rapid) - Final Weight used for dosin.1 kg Estimated Creatinine Clearance: 19.8ml/min Goal Trough: 15-20 mcg/mL Pharmacy Plan for Drug Dosing: The vanc random level drawn at 15:50 today (approx 24 hours after the dose yesterday) was 19.0. This is within the goal range of 15-20 so will dose again with 750mg x1 today. Will continue to dose off random levels since the patient's CrCl is still <20 and SCr remains high at 1.79 today. Will repeat a random level tomorrow 24 hours after the dose is given today. Pharmacy Service will continue to monitor and adjust dosing as required. Follow-Up Labs: Trough Vancomycin - random Labs to be done on [date and time ordered]: 06/23/22 - 24 hrs after the dose is given on 06/22/22
[2022-06-22 17:20] LABS: Bedside Glucose 361 mg/dL (74-106)
[2022-06-22] MEDS: Atorvastatin Calcium 40 MG Tablet PO (22:06)
[2022-06-22] MEDS: amLODIPine 10 MG Tablet PO (22:06)
[2022-06-23] VITALS (9 sets, daily range): BP systolic 151–155; BP diastolic 73–77; PULSE 80–102; RESP 17–20; TEMP 36.6–37.2; O2SAT 94–96
[2022-06-23] MEDS: 0.9% Saline Lock 10 ML Syringe IV ×3 (05:35→13:39)
[2022-06-23] MEDS: Insulin Lispro 100 UNIT/ML INSULN.PEN SC ×2 (06:36→12:28)
[2022-06-23] MEDS: Ipratropium/Albuterol Sulfate 3 ML AMPUL.NEB INHALATION (06:56)
[2022-06-23 07:03] LABS: Absolute Lymphocyte Count 0.34 X10^3/uL (0.83-4.51); Absolute Neutrophil Count 9.8 X10^3/uL (2.0-7.7); Basophil# 0.01 X10^3/uL; Basophil% 0.1 % (0-1); Hematocrit 27.3 % (37-47); Hemoglobin 8.7 g/dL (12.0-15.0); Lymphocyte # 0.34 X10^3/ul (0.83-4.51); Lymphocyte % 3.2 % (19-41); Mean Corp Hgb Conc 31.9 g/dL (32-36); Mean Corpuscular Volume 87.8 fL (81-99); Mean Platelet Vol. 9.8 fl (6.2-12.0); Monocyte# 0.46 X10^3/uL; Monocyte% 4.3 % (0-10); NRBC Flagged by Analyzer 0.2 % (0-5); Neutrophil # 9.77 X10^3/uL (2.7-7.7); Neutrophil % 91.4 % (47-70); POSITIVE DIFFERENTIAL YES; Platelet Count 362 K/mm3 (150-450); RBC Distribution Width CV 16.4 % (11.6-14.6); RBC Distribution Width SD 52.2 fl (35.1-43.9); Red Blood Count 3.11 M/mm3 (4.2-5.4); White Blood Count 10.7 K/mm3 (4.4-11.0)
[2022-06-23 07:10] LABS: Differential Indicated SCAN CRITERIA MET
[2022-06-23 07:15] LABS: Bedside Glucose 378 mg/dL (74-106)
[2022-06-23 07:34] LABS: Anion Gap 8 (5-15); BUN 54 mg/dL (7-18); BUN/Creat Ratio 33.1 RATIO (10-20); Calcium,Total 8.6 mg/dL (8.5-10.1); Chloride 105 mmol/L (98-107); Creatinine, Serum 1.63 mg/dL (0.55-1.02); EST Glomerular Filtration Rate 32 mL/min (>60); Est Glom Filt Rate - Afr Amer 38 mL/min (>60); Estimated Creatinine Clearance 18.35 ml/min; Glucose 380 mg/dL (74-106); Potassium 3.8 mmol/L (3.5-5.1); Sodium Level 135 mmol/L (136-145)
[2022-06-23 07:56] LABS: Hypersegmented Neutrophils RARE
[2022-06-23 07:57] LABS: Platelet Morphology 10.7
[2022-06-23] MEDS: Aspirin 81 MG TAB.CHEW PO (08:33)
[2022-06-23] MEDS: APIXABAN 2.5 MG TABLET PO (09:25)
[2022-06-23] MEDS: Metoprolol Tartrate 50 MG Tablet PO (09:25)
[2022-06-23] MEDS: Furosemide 40 MG Tablet PO (09:26)
[2022-06-23] MEDS: Losartan Potassium 100 MG Tablet PO (09:26)
--- NOTE | 2022-06-23 10:48 | CASEMGMT ---
Discharge Brand Specialist Sydney from [facility] reached out. Patient has been accepted. Patient can go to [facility] when medically ready. JANEL Barber notified. Ambrose ROQUE Automatic Spooler Operator
--- NOTE | 2022-06-23 11:15 | PN.CC_ITS ---
Assessment & Plan Assessment/Plan (1) Acute hypoxemic respiratory failure: PLAN: Plan RECOMMENDATIONS: 1. Continue to wean supplemental oxygen to maintain saturations at or above 90%. 2. Continue diuresis as tolerated by hemodynamics and renal function. 3. Continue broad-spectrum antimicrobials as ordered. 4. Encourage incentive spirometer use and mobilize patient as tolerated. 5. Walking oximetry prior to discharge 6. Likely okay to wean antibiotic spectrum from a pulmonary perspective IMPRESSIONS: 1. Acute hypoxemic respiratory failure Likely multifactorial in etiology with community-acquired pneumonia and decompensated heart failure contributing. Plan to continue current supportive measures including supplemental oxygen, along with IV diuretic therapy, as tolerated by hemodynamics and renal function. Given negative cultures, likely okay to wean antibiotic spectrum from my perspective. Continue to wean supplemental oxygen to maintain saturations at or above 90%. Encourage incentive spirometer use and mobilize patient as tolerated. Patient will need a walking oximetry prior to discharge. Patient can be evaluated for possible sleep apnea as an outpatient to see if BiPAP would be a viable option moving forward. 2. History of diabetes mellitus/paroxysmal atrial fibrillatio n/hypertension/coronary artery disease/chronic kidney disease Complicates care, management, recovery and prognosis. Continue home medications as indicated. This note was generated with [employer] dictation software. It may contain incorrect words, spelling, and punctuation that were not noted in checking the note before signing. Subjective Subjective Patient subjectively feels slightly improved compared to yesterday. Patient denies any current chest pain. Patient does have dyspnea on walking to the bathroom, but has no symptoms at rest. Patient has not required BiPAP rescue. Patient was inquiring on whether this would be an option at home. Objective Data Objective Data Vital Signs: Vital Signs Temp Pulse Resp BP Pulse Ox O2 Del Method O2 Flow Rate 37.2 C 102 H 18 151/75 H 96 Nasal Cannula 2 06/23/22 09:20 06/23/22 09:25 06/23/22 09:20 06/23/22 09:20 06/23/22 09:20 06/23/22 10:00 06/23/22 10:00 FiO2 30 06/20/22 01:58 Oxygen Flow Rate (L/min) 2 Oxygen Delivery Method Nasal Cannula Weight: 70.6 kg Body Mass Index (BMI) 29.3 Intake & Output: Intake and Output for Last 24 Hours 06/22/22 06/22/22 06/23/22 00:59 23:59 23:59 Intake Total 850 / 850 Output Total Balance 850 / 850 Lab / Micro Data Attestation: I reviewed the patient's lab results. Result Diagrams: 06/23/22 06:36 06/23/22 06:36 Labs: Laboratory Results - last 24 hr 06/22/22 11:34: POC Glucose 397 H 06/22/22 15:50: Random Vancomycin 19.0 H 06/22/22 16:54: POC Glucose 361 H 06/23/22 06:34: POC Glucose 378 H 06/23/22 06:36: WBC 10.7, RBC 3.11 L, Hgb 8.7 L, Hct 27.3 L, MCV 87.8, MCH 28.0, MCHC 31.9 L, RDW Std Deviation 52.2 H, RDW Coeff of Jesi 16.4 H, Plt Count 362, MPV 9.8, Immature Gran % (Auto) 1.000 H, Neut % (Auto) 91.4 H, Lymph % (Auto) 3.2 L, [place] % (Auto) 4.3, Eos % (Auto) 0.0, Baso % (Auto) 0.1, Absolute Neuts (auto) 9.8 H, Absolute Lymphs (auto) 0.34 L, Nucleated RBC % 0.2, Diff Path Review May foll, Hypersegmented Neuts RARE, Plt Morphology Comment 10.7 06/23/22 06:36: Sodium 135 L, Potassium 3.8, Chloride 105, Carbon Dioxide 22.0, Anion Gap 8, BUN 54 H, Creatinine 1.63 H, Estim Creat Clear Calc 18.35, Est GFR (MDRD) Af Amer 38 L, Est GFR (MDRD) Non-Af 32 L, BUN/Creatinine Ratio 33.1 H, Glucose 380 H, Calcium 8.6 Micro: Microbiology 06/22/22 01:18 EST Stool Stool Occult Blood (JOLEEN) - Final 06/21/22 02:40 Sputum, Expectorated/Coughed Gram Stain - Final 06/21/22 02:40 Sputum, Expectorated/Coughed Respiratory Culture - P reliminary Appears to be normal respiratory eriberto. Further studies to follow. 06/19/22 12:35 Mucosa - Nasopharyngeal Respiratory Panel (PCR) - Final 06/19/22 12:05 Urine, Random Streptococcus pneumoniae Antigen (M - Final 06/19/22 12:05 Urine, Random Legionella Antigen - Final 06/19/22 04:40 Nasal Secretion SARS-CoV-2 & FLU Antigen (Rapid) - Final Rhythm Strip Rhythm Strip: Sinus Rhythm Rate: 87 Ectopy: None Physical Exam Const alert and no apparent distress General Appearance: cooperative HEENT normocephalic and head/scalp atraumatic Eyes PERRL, EOMs intact bilaterally and conjunctivae normal Neck supple General: trachea midline Chest inspection of chest normal Resp normal respiratory effort and no use of accessory muscles Resp Narrative: Mild basilar rales. Only reaches 200 cc on incentive spirometer with coughing. Effort and Inspection: able to speak in complete sentences and actively coughing non-productive (With incentive spirometer) Auscultation: wheezes and diminished lung sounds Cardio regular rate, regular rhythm, S1 normal heart sound, S2 normal heart sound, no murmurs, no rub and no gallops GI normal to inspection, nondistended, normoactive bowel sounds Extremity no clubbing, cyanosis or edema Skin no rashes or lesions noted Neuro oriented x3, CN's II-XII intact bilaterally and moves all extremities Psych cooperative and affect normal Charges/Coding Visit Charges Inpatient E&M: 65122 Subs Hosp L2
[2022-06-23 11:30] LABS: Bedside Glucose 258 mg/dL (74-106)
--- NOTE | 2022-06-23 11:30 | CASEMGMT ---
JANEL confirmed patient would like to go to [facility]. JANEL let patient know [facility] can accept her and that physician will be sending her today. JANEL asked patient if she would still like to do the Healthcare Power of Basket Grader and Healthcare Living Will. Patient said she wants her here when she does them. JANEL let patient know SW will leave the documents with her and SW can check back later. Elisabeth Zavala MSW MARJ
--- NOTE | 2022-06-23 12:03 | TREXTCAR_ITS ---
Diet Diet Order/Speech Therapy: 06/19/22 08:02 Diet: Cardiac - Heart Healthy Food consistency:: Regular Liquid Consistency:: Regular/Thin Dietary Modifications:: No Added Salt Fluid restriction:: 1500 mL Routine Orders/Code Status Enema Type: Fleetz Suppository Type: Dulcolax 10mg Suppository Frequency: Daily PRN O2 Frequency: PRN Keep PO Greater than or Equal to (%): 90 Therapies Weight Bearing: Weight bearing as tolerated Physical Therapy: Eval and Treat Occupational Therapy: Eval and Treat Problem/Diagnosis (1) Acute hypoxemic respiratory failure: Status: Acute Code(s): J96.01 - Acute respiratory failure with hypoxia Plan #Acute hypoxic respiratory failure * Due to decompensated heart failure with reduced ejection fraction as well as community-acquired pneumonia. * Being diuresed with IV Lasix. Monitor intake and output. Fluid restriction at 1500 cc daily * On IV vancomycin and zosyn * 2D echo from 07/08 showed EF of 60% with moderate segmental systolic dysfunction and stage II diastolic dysfunction as well as severely enlarged left atrium and moderate mitral valve stenosis as well as severe pulmonary hypertension * will switch to oral lasix as she is now off oxygen and on room air. * #Acute on chronic heart failure with reduced action fraction: As above #Community-acquired pneumonia: As above #Hypertension: Controlled. On amlodipine and losartan #Type 2 diabetes mellitus: nsulin sliding scale. Accu-Cheks ACH S. #Paroxysmal A. fib: Rate controlled. On systemic anticoagulation with Eliquis #CAD * cardiac cath in September 2021 showed severe [place] vessel CAD. * Could not have stent placed as they could not traverse the area of stenosis. * On medical management. #Renal artery stenosis: Stable. #CKD stage IIIb: Creatinine at baseline DVT prophylaxis: On Eliquis Disposition: awaiting placement, likely tomorrow Allergies/Procedures Done in Hospital Allergies No Known Allergies Allergy (Verified 09/25/21 10:00) Procedures: None Type of Care/Length of Stay Estimated LOS: Convalescent Care Less Than 30 days Type of Care Needed: Skilled Rehab Potential: Fair Prognosis: Fair Additional Orders/Day of Discharge Day of Discharge: 06/23/22 Dietary and Speech Recommendations Dietitian Recommendations/Changes: Continue Cardiac diet with fluid restriction per MD to manage medical conditions. RD will order CCD diet to help manage blood glucose Discharge Plan Admission Admit Date/Time: 06/19/22 06:52 Primary Reason for Your Visit: acute hypoxic respiratory failure, pneumonia Attending Provider: Tameka Mendoza Primary Care Provider: Baltazar Saleh Consulting Providers: Chantal Nicholas ; Elidia Flynn ; Robert Gastelum ; Vicotr Hugo Turcios ; Cristopher Guerrero ; Yury Anthony ; Nila Newton LITHOGRAPH DESIGNER ; Foreign Chu Instructions Patient Instructions: Heart Failure Dc, ED Pneumonia (Adult) Discharge Orders/Prescriptions Prescriptions: Continued Eliquis 2.5 mg tablet 2.5 mg PO BID Hold Instructions: Resume on 10/17/21. furosemide 40 mg tablet 40 mg PO DAILY metoprolol tartrate 100 MG tablet 100 mg PO DAILY Label Comments: blood pressure/heart aspirin 81 MG tablet,chewable 81 mg PO DAILY@0800 Label Comments: heart health amlodipine 10 MG tablet 10 mg PO QHS Label Comments: BLOOD PRESSURE/HEART losartan 50 mg tablet 50 mg PO BID glimepiride 2 mg tablet 2 mg PO DAILY Rx Instructions: 2MG in AM and 1mg QHS glimepiride 1 mg tablet 1 mg PO QHS metoprolol succinate 25 mg tablet extended release 24 hr 50 mg PO QHS Referrals / Follow Up: Baltazar Saleh MD [Primary Care Provider] - Disposition Disposition (needs filled in before D/C Order can be placed): Group Home Facility
--- NOTE | 2022-06-23 12:06 | DS.PCM_ITS ---
Providers Date of Admission: 06/19/22 Date of Discharge: 06/23/22 Primary Care Physician: Dr. Baltazar Saleh MD Consultations 06/19/22 12:49 Consult: Unisaw Operator / Pulmonary Medicine Routine Consulting Provider: Pulmonary Medicine frankie Tifton Reason for Consult: respiratory failure EMERGENT Consult: Yes MD Notified: Yes Date Notified: 06/19/22 Time Notified: 12:49 Method of Notification: Verbal Reason For Visit: ACUTE HYPOXIC RESPIRATORY FAILURE Diagnosis Discharge Diagnosis (1) Acute hypoxemic respiratory failure: Status: Acute Code(s): J96.01 - Acute respiratory failure with hypoxia Plan #Acute hypoxic respiratory failure * Due to decompensated heart failure with reduced ejection fraction as well as community-acquired pneumonia. * Being diuresed with IV Lasix. Monitor intake and output. Fluid restriction at 1500 cc daily * On IV vancomycin and zosyn * 2D echo from 07/08 showed EF of 60% with moderate segmental systolic dysfunction and stage II diastolic dysfunction as well as severely enlarged left atrium and moderate mitral valve stenosis as well as severe pulmonary hypertension * will switch to oral lasix as she is now off oxygen and on room air. * #Acute on chronic heart failure with reduced action fraction: As above #Community-acquired pneumonia: As above #Hypertension: Controlled. On amlodipine and losartan #Type 2 diabetes mellitus: nsulin sliding scale. Accu-Cheks ACH S. #Paroxysmal A. fib: Rate controlled. On systemic anticoagulation with Eliquis #CAD * cardiac cath in September 2021 showed severe [place] vessel CAD. * Could not have stent placed as they could not traverse the area of stenosis. * On medical management. #Renal artery stenosis: Stable. #CKD stage IIIb: Creatinine at baseline DVT prophylaxis: On Eliquis Disposition: awaiting placement, likely tomorrow Medications at Discharge Home Medications aspirin 81 mg chewable tablet 81 mg PO DAILY@0800 BLOOD THINNER 04/21/17 metoprolol tartrate 100 mg tablet 100 mg PO DAILY hr 04/21/17 amlodipine 10 mg tablet 10 mg PO QHS BP 04/28/17 apixaban 2.5 mg tablet (Eliquis) 2.5 mg PO BID BLOOD THINNER 09/07/19 furosemide 40 mg tablet 40 mg PO DAILY FLUID 09/25/21 glimepiride 1 mg tablet 1 mg PO QHS SUGAR 06/19/22 glimepiride 2 mg tablet 2 mg PO DAILY SUGAR 06/19/22 losartan 50 mg tablet 50 mg PO BID BP 06/19/22 metoprolol succinate 25 mg tablet,extended release 24 hr 50 mg PO QHS hr 06/19/22 Hospital Course Operations None Procedures None Summary of Care Provided Minutes Spent on Discharge: 45 Hospital Course: Patient is an 86 y/o female with a PMH as outlined who was admitted via the ED with a complaint of worsening shortness of breath. Shortness of breath that started about 2 weeks prior to admission and she had associated nasal congestion and a cough productive of sputum. Her symptoms did not improve so she went to the urgent care and was told she had pneumonia. She was placed on Augmentin but her symptoms were not improving so she came into the ED. Chest x-ray done on admission showed multifocal pneumonia with consolidation in the lung bases and possible superimposed pleural effusion. She was admitted and managed for acute hypoxic respiratory failure due to complete decompensated heart failure with reduced ejection fraction and community-acquired pneumonia. She was started on IV Lasix and started on IV ceftriaxone and azithromycin. Pulmonology was consulted. Patient shortness of breath gradually improved and she did very well. She was weaned off of oxygen. Sputum cultures were negative. Antibiotics were initially transitioned to IV vancomycin and Zosyn. Patient was transitioned to oral Lasix and antibiotics were weaned off at discharge because of the negative cultures. She worked with physical therapy but was deemed as needing further skilled therapy. She was therefore discharged to longterm facility on 06/23/2022. She is follow-up with her primary care doctor and is to follow-up with cardiology as well. #Patient seen and examined prior to discharge. She had no complaints and had an uneventful night. Review of symptoms otherwise negative. Labs and vitals reviewed. Home medication reviewed and reconciled. Physical Exam Const alert, oriented x3 and no apparent distress General Appearance: cooperative, comfortable and well kempt Orientation / Consciousness: awake Exam Limitations: no limitations HEENT normocephalic, head/scalp atraumatic and moist oral mucous membranes; Negative for hearing grossly normal bilaterally Mouth: oral and palatal mucosa normal Eyes PERRL, EOMs intact bilaterally and conjunctivae normal Neck no lymphadenopathy and supple Resp normal respiratory effort, no retractions and no use of accessory muscles Resp Narrative: remains on room air Auscultation: crackles; Negative for rhonchi or wheezes Cardio regular rate, regular rhythm, S1 normal heart sound, S2 normal heart sound, no murmurs, no rub, no gallops and no clicks GI normal to inspection, nondistended, normoactive bowel sounds, soft to palpation, non-tender and non-distended; Negative for hepatosplenomegaly Extremity normal to inspection, full ROM and no clubbing, cyanosis or edema Skin no rashes or lesions noted, no wounds, skin turgor normal, no jaundice, no petechiae and no mottling Neuro oriented x3, CN's II-XII intact bilaterally, moves all extremities and no focal motor deficits Sensorium / Orientation: awake and alert Speech: speech normal Motor Exam: strength 5/5 throughout Psych affect normal Weight / BMI Weight Weight: 155 lb 10.342 oz Body Mass Index (BMI) 29.3 ABG / Lab / Microbiology Data Result Diagrams: 06/23/22 06:36 06/23/22 06:36 Laboratory: Laboratory Results - last 24 hr 06/22/22 15:50: Random Vancomycin 19.0 H 06/22/22 16:54: POC Glucose 361 H 06/23/22 06:34: POC Glucose 378 H 06/23/22 06:36: WBC 10.7, RBC 3.11 L, Hgb 8.7 L, Hct 27.3 L, MCV 87.8, MCH 28.0, MCHC 31.9 L, RDW Std Deviation 52.2 H, RDW Coeff of Jesi 16.4 H, Plt Count 362, MPV 9.8, Immature Gran % (Auto) 1.000 H, Neut % (Auto) 91.4 H, Lymph % (Auto) 3.2 L, [place]ferro % (Auto) 4.3, Eos % (Auto) 0.0, Baso % (Auto) 0.1, Absolute Neuts (auto) 9.8 H, Absolute Lymphs (auto) 0.34 L, Nucleated RBC % 0.2, Diff Path Review May foll, Hypersegmented Neuts RARE, Plt Morphology Comment 10.7 06/23/22 06:36: Sodium 135 L, Potassium 3.8, Chloride 105, Carbon Dioxide 22.0, Anion Gap 8, BUN 54 H, Creatinine 1.63 H, Estim Creat Clear Calc 18.35, Est GFR (MDRD) Af Amer 38 L, Est GFR (MDRD) Non-Af 32 L, BUN/Creatinine Ratio 33.1 H, Glucose 380 H, Calcium 8.6 06/23/22 11:09: POC Glucose 258 H Microbiology: Microbiology 06/22/22 01:18 EST Stool Stool Occult Blood (JOLEEN) - Final 06/21/22 02:40 Sputum, Expectorated/Coughed Gram Stain - Final 06/21/22 02:40 Sputum, Expectorated/Coughed Respiratory Culture - Preliminary Appears to be normal respiratory eriberto. Further studies to follow. 06/19/22 12:35 Mucosa - Nasopharyngeal Respiratory Panel (PCR) - Final 06/19/22 12:05 Urine, Random Streptococcus pneumoniae Antigen (M - Final 06/19/22 12:05 Urine, Random Legionella Antigen - Final 06/19/22 04:40 Nasal Secretion SARS-CoV-2 & FLU Antigen (Rapid) - Final D/C Instructions Discharge Diet: Low fat / Low cholesterol Discharge Activity: Return to Normal Activity Weight Bearing Status: Weight bearing as tolerated Call your doctor if you observe: Fever of 101 or Higher, Shortness of breath, Dizziness, Swelling in the ankles and Chest pain Meaningful Use Info Meaningful Use Diagnoses (Choose all that apply): CHF CHF MALENA/ARB ordered at discharge?: Yes Documented LVEF (%): 60 Discharge Plan Admission Admit Date/Time: 06/19/22 06:52 Primary Reason for Your Visit: acute hypoxic respiratory failure, pneumonia Attending Provider: Tameka Mendoza Primary Care Provider: Baltazar Saleh Consulting Providers: Chantal Nicholas ; Elidia Flynn ; Robert Gastelum ; Victor Hugo Turcios ; Cristopher Guerrero ; Yury Anthony ; Nila Newton [employer]ORIZED SQU[employer] SERGEANT ; Foreign Chu Instructions Patient Instructions: Heart Failure Dc, ED Pneumonia (Adult) Discharge Orders/Prescriptions Prescriptions: Continued Eliquis 2.5 mg tablet 2.5 mg PO BID Hold Instructions: Resume on 10/17/21. furosemide 40 mg tablet 40 mg PO DAILY metoprolol tartrate 100 MG tablet 100 mg PO DAILY Label Comments: blood pressure/heart aspirin 81 MG tablet,chewable 81 mg PO DAILY@0800 Label Comments: heart health amlodipine 10 MG tablet 10 mg PO QHS Label Comments: BLOOD PRESSURE/HEART losartan 50 mg tablet 50 mg PO BID glimepiride 2 mg tablet 2 mg PO DAILY Rx Instructions: 2MG in AM and 1mg QHS glimepiride 1 mg tablet 1 mg PO QHS metoprolol succinate 25 mg tablet extended release 24 hr 50 mg PO QHS Referrals / Follow Up: Baltazar Saleh MD [Primary Care Provider] - Disposition Disposition (needs filled in before D/C Order can be placed): Care Home Facility Charges/Coding Visit Charges Inpatient E&M: 43839 Disch Hosp
[2022-06-23 12:38] LABS: Pathologist Review Reviewed
--- NOTE | 2022-06-23 13:21 | CASEMGMT ---
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 primer supervisor time with Physicians is 1:50pm via Wheel Chair. [facility] and Nursing staff and patient notified. Ambrose ROQUE [employer] Officer
--- NOTE | 2022-06-23 13:53 | NURSING ---
Pt notified spouse that she was being transferred to SNF and did not want this RN to update at this time.
== END 2022-06-23 14:00 | disposition skilled nursing facility (03) | DRG 193 ==
LOC: ED 06:54 → PCU 07:18
PROVIDERS: Internal Medicine; Internal Medicine Critical Care Medicine; Admitting Provider Internal Medicine; Emergency Provider Emergency Medicine; PCP Family Medicine; Visit Provider Student in an Organized Health Care Education/Training Program
DX: J18.9 Pneumonia, unspecified organism (principal); J96.01 Acute respiratory failure with hypoxia; I50.43 Acute on chronic combined systolic (congestive) and diastolic (congestive) heart failure; I13.0 Hypertensive heart and chronic kidney disease with heart failure and stage 1 through stage 4 chronic kidney disease, or unspecified chronic kidney disease; I27.20 Pulmonary hypertension, unspecified; E11.22 Type 2 diabetes mellitus with diabetic chronic kidney disease; E11.65 Type 2 diabetes mellitus with hyperglycemia; D64.9 Anemia, unspecified; N18.32 Chronic kidney disease, stage 3b; I48.0 Paroxysmal atrial fibrillation; I70.1 Atherosclerosis of renal artery; E78.5 Hyperlipidemia, unspecified; I25.5 Ischemic cardiomyopathy; I25.10 Atherosclerotic heart disease of native coronary artery without angina pectoris; I08.0 Rheumatic disorders of both mitral and aortic valves; G47.30 Sleep apnea, unspecified; Z79.82 Long term (current) use of aspirin; Z66 Do not resuscitate; Z79.01 Long term (current) use of anticoagulants; Z79.84 Long term (current) use of oral hypoglycemic drugs
CPT/HCPCS: 36415; 71045; 80048; 80053; 80202; 82274; 82728; 82962; 83036; 83540; 83550; 83605; 83735; 83880; 84100; 84443; 84484; 85025; 85045; 87070; 87205; 87426; 87428; 87449; 87633; 87641; 93005; 93306; 94002; 94003; 94640; 94667; 94668; 97110; 97116; 97162; 97166; 97530; 97535; 97802; 99251; 99285; J7040; J7050; A4216; G0463; J0696; J1940

== ENCOUNTER 2022-07-08 03:25 | Inpatient (IN) | payer MEDICARE, OTHER, SELFPAY ==
[2022-07-08] VITALS (15 sets, daily range): BP systolic 135–159; BP diastolic 56–80; PULSE 80–101; RESP 15–26; TEMP 36.5–37.1; O2SAT 78–98; BMI 30.4; BMI 28.8
--- NOTE | 2022-07-08 03:36 | EKG12_ITS ---
Test Reason : SOB Blood Pressure : / mmHG Vent. Rate : 098 BPM Atrial Rate : 098 BPM P-R Int : 160 ms QRS Dur : 072 ms QT Int : 360 ms P-R-T Axes : 026 -25 080 degrees QTc Int : 459 ms Normal sinus rhythm Nonspecific ST abnormality Abnormal ECG Confirmed by ELVA ARMENTA, NORM ([id number]), editor sound SARAH GAVIRIA ([id number]) on 07/08/2022 8:42:23 AM Referred By: Confirmed By:NORM STEVENSON MD
--- NOTE | 2022-07-08 03:36 | RAD_ITS ---
INDICATION: Shortness of breath EXAMINATION/TECHNIQUE: X-RAY - AP view of chest COMPARISON: Chest x-ray from 06/19/2022 FINDINGS: LINES/DEVICES: monitoring coordinator leads. LUNGS: Mild residual bilateral pulmonary interstitial prominence with improving bilateral perihilar opacities. Stable bibasilar opacification. Small pulmonary granulomatous calcifications again noted. Small bilateral pleural effusions. No detectable pneumothorax. MEDIASTINUM AND CARDIOVASCULAR STRUCTURES: Heart size within normal limits for imaging technique. Status post aortic valvuloplasty. Calcified mediastinal and hilar lymph nodes. Atherosclerotic calcifications along aorta. BONES AND SOFT TISSUES: Skeletal degenerative changes. RAD/Chest 1 View (Portable) IMPRESSION: Mild residual pulmonary vascular congestion with persistent bibasilar opacification and improving perihilar opacities. Bilateral pleural effusions again noted. Electronically Signed: Ventura Murrieta MD at 4:15 EST ,
--- NOTE | 2022-07-08 03:38 | EDS_ITS ---
HPI History of Present Illness Chief Complaint: Shortness of Breath Informant: patient Narrative Narrative: Patient presents with dyspnea. She was in the hospital recently with pneumonia and some congestive heart failure. She was sent home on Lasix. She had been off her oxygen and is not on oxygen at home. She has 1 more Augmentin to take. She has been generally been doing better. Over the last day her breathing got worse and is much worse tonight. She has some cough but not significant. No sputum production. No fevers chills or myalgias. She does have a heaviness on her chest. She had 1 cardiac stent about a year ago at [facility]. She d enies history of COPD/emphysema/asthma. She has never been a smoker. Her smoked but he quit when they got so she really does not have much secondhand smoke. She has noted increased wheezing though. She denies any weight gain. She denies any salty meals. She does not recognize the term congestive heart failure but she had component of it in the hospital and is on Lasix at 40 a day. She denies any known weight gain. Breathing treatment and oxygen by the squad did help her symptoms. Her oxygen level here was 78% on room air and she does not have oxygen at home. [facility] Medical History (Updated 07/08/22 @ 06:[address] 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) Hyperlipidemia Hypertension associated with diabetes Ischemic cardiomyopathy Mitral annular calcification Nonrheumatic aortic (valve) stenosis Nonrheumatic mitral (valve) insufficiency Normocytic anemia Paroxysmal atrial fibrillation Renal artery stenosis Home Medications aspirin 81 mg chewable tablet 81 mg PO DAILY@0800 BLOOD THINNER 04/21/17 [History Last Taken 06/18/22] metoprolol tartrate 100 mg tablet 100 mg PO DAILY hr 04/21/17 [History Last Taken 06/18/22] amlodipine 10 mg tablet 10 mg PO QHS BP 04/28/17 [History Last Taken 06/18/22] apixaban 2.5 mg tablet (Eliquis) 2.5 mg PO BID BLOOD THINNER 09/07/19 [History Last Taken 06/18/22] furosemide 40 mg tablet 40 mg PO DAILY FLUID 09/25/21 [History Last Taken 06/18/22] glimepiride 1 mg tablet 1 mg PO QHS SUGAR 06/19/22 [History Last Taken 06/18/22] glimepiride 2 mg tablet 2 mg PO DAILY SUGAR 06/19/22 [History Last Taken 06/18/22] losartan 50 mg tablet 50 mg PO BID BP 06/19/22 [History Last Taken 06/18/22] metoprolol succinate 25 mg tablet,extended release 24 hr 25 mg PO QHS hr 06/19/22 [History Last Taken 06/18/22] Allergy/AdvReac Type Severity Reaction Status Date / Time No Known Allergies Allergy Verified 07/08/22 03:30 Family History Sister Asthma Breast cancer Hypertension Hyperlipidemia Melanoma Father , From old age per patient. Denies specific medical problems. No problems noted. Mother , From old age per patient. Denies specific medical problems. No problems noted. Surgical History History of appendectomy History of coronary angioplasty (09/18/21) History of left heart catheterization (04/2017) Social History Smoking Status: Never smoker alcohol intake: never substance use type: does not use caffeine: Yes Type: coffee Number of servings: 1 ROS ROS ED Constitutional Constitutional ED: Denies chills, fever(s) or sweats ENT ENT ED: Denies rhinorrhea or sore throat Cardiovascular Cardiovascular: Reports chest pain; Denies palpitations or racing heartbeat Respiratory/Chest Respiratory/Chest: Reports cough and dyspnea; Denies sputum Gastrointestinal Gastrointestinal: Denies nausea or vomiting Musculoskeletal Musculoskeletal: Denies arthralgias or myalgias Integumentary Denies rash Neurologic Neurologic: Denies headache(s) Endocrine Endocrinology: Denies polydipsia or polyuria Hematologic/Lymphatic Hematologic/Lymphatic: Reports easy bleeding and easy bruising Allergic/Immunologic Allergic/Immunologic ED: Denies urticaria EXAM Physical Exam Const Vital Signs: 07/08/22 03:27 07/08/22 03:30 07/08/22 03:31 Temperature 98.7 F Temperature Source Temporal Pulse Rate 101 H Respiratory Rate 22 H Respiratory Effort Short of Breath Labored Blood Pressure 159/65 H Blood Pressure Mean 96 Pulse Ox 78 93 Oxygen Delivery Method Room Air Nasal Cannula Nasal Cannula Oxygen Flow Rate (L/min) 4 07/08/22 03:51 Temperature Temperature Source Pulse Rate 100 Respiratory Rate 18 Respiratory Effort Blood Pressure Blood Pressure Mean Pulse Ox Oxygen Delivery Method Oxygen Flow Rate (L/min) Positive well nourished and well developed Constitutional Narrative: Patient saturations are good on 4 L. She does have increased work of breathing but is able to carry on a conversation with slightly shortened sentences. General Appearance ED: well developed HEENT Reports moist mucous membranes Eyes General Eye ED: Negative for scleral icterus Neck no JVD Neck Narrative: No definitive JVD seen. Resp Resp Narrative: Mild crease respiratory effort. She does appear to have some basilar rales as well as some slight expiratory wheeze. Auscultation: rales and wheezes; Negative for rhonchi Cardio regular rhythm Cardio Narrative: Heart does sound to be regular. Rate: tachycardic GI non-tender and non-distended Back/Spine no CVA tenderness Extremity Extremity Narrative: Extremities are showing no notable pitting edema Neuro oriented x3 Neuro Narrative: Patient is awake alert and oriented. She is not sleepy or lethargic. Psych mental status grossly normal Skin no wounds and skin turgor normal MDM MDM MDM Narrative Medical decision making narrative: X-ray was suspicious for CHF. White count is normal. Mildly low hemoglobin at 9.3. Electrolytes showed mildly decreased potassium and elevated creatinine. Glucose was 253. Troponin was normal at 17. BNP was elevated at 680. Lactate was normal at 1.0 I do not think this patient has pulmonary embolus as she is on and is taking her apixaban. I doubt that this is infectious as she is still finishing up antibiotics, has no fever no white count and infiltrates are improving. I think her symptoms are likely due to congestive heart failure. Her blood pressure is good and I do not think she needs nitroglycerin. We did give her Lasix. Her breathing was a little bit increased in rate so we ended up putting her on BiPAP as this will help her. But she did not need this for oxygenation. Patient was discussed with hospitalist who came down to the emergency department to see her and patient will be admitted. Lab Data Attestation: I reviewed the patient's lab results. Labs: Laboratory Results - last 24 hr 07/08/22 07/08/22 07/08/22 03:44 03:44 03:44 WBC 8.6 RBC 3.23 L Hgb 9.3 L Hct 28.6 L MCV 88.5 MCH 28.8 MCHC 32.5 RDW Std Deviation 54.4 H RDW Coeff of Jesi 16.7 H Plt Count 228 MPV 9.3 Immature Gran % (Auto) 0.500 Neut % (Auto) 71.4 H Lymph % (Auto) 14.8 L [place] % (Auto) 10.8 H Eos % (Auto) 2.0 Baso % (Auto) 0.5 Absolute Neuts (auto) 6.2 Absolute Lymphs (auto) 1.28 Nucleated RBC % 0 Sodium 140 Potassium 3.4 L Chloride 107 Carbon Dioxide 25.0 Anion Gap 8 BUN 27 H Creatinine 1.48 H Estim Creat Clear Calc 20.21 Est GFR (MDRD) Af Amer 43 L Est GFR (MDRD) Non-Af 35 L BUN/Creatinine Ratio 18.2 Glucose 253 H Lactic Acid Calcium 8.9 Troponin I High Sens 17 B-Natriuretic Peptide 680.8 H 07/08/22 03:48 WBC RBC Hgb Hct MCV MCH MCHC RDW Std Deviation RDW Coeff of Jesi Plt Count MPV Immature Gran % (Auto) Neut % (Auto) Lymph % (Auto) [place] % (Auto) Eos % (Auto) Baso % (Auto) Absolute Neuts (auto) Absolute Lymphs (auto) Nucleated RBC % Sodium Potassium Chloride Carbon Dioxide Anion Gap BUN Creatinine Estim Creat Clear Calc Est GFR (MDRD) Af Amer Est GFR (MDRD) Non-Af BUN/Creatinine Ratio Glucose Lactic Acid 1.0 Calcium Troponin I High Sens B-Natriuretic Peptide Radiography Diagnostic Testing: Clinical Impression(s) from Imaging Studies Chest X-Ray 07/08/22 03:36 IMPRESSION: Mild residual pulmonary vascular congestion with persistent bibasilar opacification and improving perihilar opacities. Bilateral pleural effusions again noted. Electronically Signed: Ventura Murrieta MD at 4:15 EST , Chest x-ray shows some vascular congestion but improvement of perihilar opacities. There were bilateral effusions. Overall this looks to be more congestive heart failure. EKG Initial EKG: Comments: EKG done for chest heaviness and dyspnea read by me shows normal sinus rhythm with overall rate of 98. Patient does have a history of atrial fibrillation intermittently though. There is nonspecific ST and T wave changes. CO interval QRS duration and QTC are overall normal. This is similar to 19 June 2022. Discharge Plan Triage Chief Complaint: Shortness of Breath ED Provider: Albert Stinson Dx/Rx/DC Orders Clinical Impression: Congestive heart failure (CHF), Hypoxia Primary Care Provider: Baltazar Saleh Disposition Disposition: Acute Care Hospital [facility]
[2022-07-08] MEDS: Ipratropium/Albuterol Sulfate 3 ML AMPUL.NEB INHALATION (03:50)
[2022-07-08 03:56] LABS: Absolute Lymphocyte Count 1.28 X10^3/uL (0.83-4.51); Absolute Neutrophil Count 6.2 X10^3/uL (2.0-7.7); Basophil# 0.04 X10^3/uL; Basophil% 0.5 % (0-1); Eosinophil# 0.17 X10^3/uL; Hematocrit 28.6 % (37-47); Hemoglobin 9.3 g/dL (12.0-15.0); Lymphocyte # 1.28 X10^3/ul (0.83-4.51); Lymphocyte % 14.8 % (19-41); Mean Corp Hgb Conc 32.5 g/dL (32-36); Mean Corpuscular Hgb 28.8 pg (27.0-32.0); Mean Corpuscular Volume 88.5 fL (81-99); Mean Platelet Vol. 9.3 fl (6.2-12.0); Monocyte# 0.93 X10^3/uL; Monocyte% 10.8 % (0-10); NRBC Flagged by Analyzer 0 % (0-5); Neutrophil # 6.18 X10^3/uL (2.7-7.7); Neutrophil % 71.4 % (47-70); Platelet Count 228 K/mm3 (150-450); RBC Distribution Width CV 16.7 % (11.6-14.6); RBC Distribution Width SD 54.4 fl (35.1-43.9); Red Blood Count 3.23 M/mm3 (4.2-5.4); White Blood Count 8.6 K/mm3 (4.4-11.0)
[2022-07-08 04:22] LABS: Anion Gap 8 (5-15); BUN 27 mg/dL (7-18); BUN/Creat Ratio 18.2 RATIO (10-20); Calcium,Total 8.9 mg/dL (8.5-10.1); Chloride 107 mmol/L (98-107); Creatinine, Serum 1.48 mg/dL (0.55-1.02); EST Glomerular Filtration Rate 35 mL/min (>60); Est Glom Filt Rate - Afr Amer 43 mL/min (>60); Estimated Creatinine Clearance 20.21 ml/min; Glucose 253 mg/dL (74-106); Potassium 3.4 mmol/L (3.5-5.1); Sodium Level 140 mmol/L (136-145); Troponin-I HS 17 pg/mL (3.0-54.0)
[2022-07-08 04:24] LABS: BNP,B-Type NATRIURETIC PEPTIDE 680.8 pg/mL (0-100)
[2022-07-08] MEDS: Furosemide 40 MG/4 ML Vial IV ×2 (04:45→10:35)
--- NOTE | 2022-07-08 04:57 | PCM.HP.STD ---
[facility] - General General Date of Admission: 07/08/22 Date of Service: 07/08/22 Chief Complaint: Shortness of breath HPI Narrative PHUC AIKEN, is a 86 F who presents to the emergency room with chief complaint of shortness of breath. Patient has significant past medical history of hospitalization 2 weeks ago with pneumonia and congestive heart failure. Patient is just finishing her last dose of Augmentin as an outpatient but suddenly had worsening shortness of breath overnight and came to the emergency room for evaluation. While her troponin was normal her BNP was over 600. Recent echocardiogram at last hospitalization showed an ejection fraction of 60% however she had severe pulmonary hypertension noted. She has been getting treated with outpatient Lasix medication and was given a dose of IV Lasix in the emergency room here today. During my evaluation her pulse oxygenation saturation was 95% on 2 L oxygen with a respiratory rate of 30 and a heart rate in the low 100-110 range. Patient expressed wishes to be full code and was amenable to starting BiPAP therapy. She denies any fevers or chills, nausea, vomiting or chest pain. She will be admitted to PCU for respiratory support and treatment of congestive heart failure. [facility] Medical History (Updated 07/08/22 @ 05:[address] 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) Hyperlipidemia Hypertension associated with diabetes Ischemic cardiomyopathy Mitral annular calcification Nonrheumatic aortic (valve) stenosis Nonrheumatic mitral (valve) insufficiency Normocytic anemia Paroxysmal atrial fibrillation Renal artery stenosis Home Medications aspirin 81 mg chewable tablet 81 mg PO DAILY@0800 BLOOD THINNER 04/21/17 [History Last Taken 06/18/22] metoprolol tartrate 100 mg tablet 100 mg PO DAILY hr 04/21/17 [History Last Taken 06/18/22] amlodipine 10 mg tablet 10 mg PO QHS BP 04/28/17 [History Last Taken 06/18/22] apixaban 2.5 mg tablet (Eliquis) 2.5 mg PO BID BLOOD THINNER 09/07/19 [History Last Taken 06/18/22] furosemide 40 mg tablet 40 mg PO DAILY FLUID 09/25/21 [History Last Taken 06/18/22] glimepiride 1 mg tablet 1 mg PO QHS SUGAR 06/19/22 [History Last Taken 06/18/22] glimepiride 2 mg tablet 2 mg PO DAILY SUGAR 06/19/22 [History Last Taken 06/18/22] losartan 50 mg tablet 50 mg PO BID BP 06/19/22 [History Last Taken 06/18/22] metoprolol succinate 25 mg tablet,extended release 24 hr 50 mg PO QHS hr 06/19/22 [History Last Taken 06/18/22] amoxicillin 500 mg-potassium clavulanate 125 mg tablet tab 07/08/22 [History Last Taken Unknown] amoxicillin 500 mg-potassium clavulanate 125 mg tablet tab 07/08/22 [History Last Taken Unknown] Allergy/AdvReac Type Severity Reaction Status Date / Time No Known Allergies Allergy Verified 07/08/22 03:30 Family History Sister Asthma Breast cancer Hypertension Hyperlipidemia Melanoma Father , From old age per patient. Denies specific medical problems. No problems noted. Mother , From old age per patient. Denies specific medical problems. No problems noted. Surgical History History of appendectomy History of coronary angioplasty (09/18/21) History of left heart catheterization (04/2017) Social History Smoking Status: Never smoker alcohol intake: never substance use type: does not use caffeine: Yes Type: coffee Number of servings: 1 ROS Constitutional Constitutional: Denies chills or fever(s) Eyes Eyes: Denies change in vision ENT HEENT: Denies abnormal hearing Cardiovascular Cardiovascular: Denies chest pain Respiratory/Chest Respiratory/Chest: Reports shortness of breath at rest Gastrointestinal Gastrointestinal: Denies abdominal pain Genitourinary Genitourinary: Denies dysuria Musculoskeletal Musculoskeletal: Denies back pain Integumentary Integumentary: Denies dry skin Neurologic Neurologic: Denies abnormal speech Psychiatric Psychiatric: Denies depression Vital Signs Vital Signs Vital Signs: 07/08/22 03:27 07/08/22 03:30 07/08/22 03:31 Temperature 98.7 F Temperature Source Temporal Pulse Rate 101 H Respiratory Rate 22 H Respiratory Effort Short of Breath Labored Blood Pressure 159/65 H Blood Pressure Mean 96 Pulse Ox 78 93 Oxygen Delivery Method Room Air Nasal Cannula Nasal Cannula Oxygen Flow Rate (L/min) 4 07/08/22 03:51 Temperature Temperature Source Pulse Rate 100 Respiratory Rate 18 Respiratory Effort Blood Pressure Blood Pressure Mean Pulse Ox Oxygen Delivery Method Oxygen Flow Rate (L/min) Weight Weight: 160 lb 14.999 oz Body Mass Index (BMI) 30.4 Physical Exam Const oriented x3 HEENT normocephalic and head/scalp atraumatic Eyes PERRL Neck no lymphadenopathy Lymph Lymphatic: no lymphadenopathy noted Resp Effort and Inspection: tachypneic Auscultation: diminished lung sounds bilateral Cardio regular rhythm, S1 normal heart sound and S2 normal heart sound Heart Sounds: murmur systolic II/ GI soft to palpation and non-tender Extremity normal capillary refill Skin General Skin Exam: no breakdown Neuro no focal motor deficits and no sensory deficits noted Psych affect normal Results Lab / Micro Data Result Diagrams: 07/08/22 03:44 07/08/22 03:44 Labs: Laboratory Results - last 24 hr 07/08/22 03:44: WBC 8.6, RBC 3.23 L, Hgb 9.3 L, Hct 28.6 L, MCV 88.5, MCH 28.8, MCHC 32.5, RDW Std Deviation 54.4 H, RDW Coeff of Jesi 16.7 H, Plt Count 228, MPV 9.3, Immature Gran % (Auto) 0.500, Neut % (Auto) 71.4 H, Lymph % (Auto) 14.8 L, [place] % (Auto) 10.8 H, Eos % (Auto) 2.0, Baso % (Auto) 0.5, Absolute Neuts (auto) 6.2, Absolute Lymphs (auto) 1.28, Nucleated RBC % 0 07/08/22 03:44: Sodium 140, Potassium 3.4 L, Chloride 107, Carbon Dioxide 25.0, Anion Gap 8, BUN 27 H, Creatinine 1.48 H, Estim Creat Clear Calc 20.21, Est GFR (MDRD) Af Amer 43 L, Est GFR (MDRD) Non-Af 35 L, BUN/Creatinine Ratio 18.2, Glucose 253 H, Calcium 8.9, Troponin I High Sens 17 07/08/22 03:44: B-Natriuretic Peptide 680.8 H 07/08/22 03:48: Lactic Acid 1.0 Radiology Impression Chest X-Ray 07/08/22 03:36 IMPRESSION: Mild residual pulmonary vascular congestion with persistent bibasilar opacification and improving perihilar opacities. Bilateral pleural effusions again noted. Electronically Signed: Ventura Murrieta MD at 4:15 EST , Assessment & Plan Assessment/Plan (1) Dyspnea on exertion: (2) History of non-ST elevation myocardial infarction (NSTEMI): (3) History of coronary angioplasty: (4) Ischemic cardiomyopathy: (5) History of transcatheter aortic valve replacement (TAVR): (6) Paroxysmal atrial fibrillation: (7) Bilateral carotid artery stenosis: (8) Chronic kidney disease, stage 3: (9) Diabetes mellitus: QUALIFIERS: Diabetes mellitus type: type 2 PLAN: Plan 1 acute shortness of breath secondary to congestive heart failure?admit patient to progressive care unit, initiate BiPAP therapy in the emergency room and will continue through the industrial ecology technician to alleviate respiratory effort and diminished fluid in her lungs. Continue IV Lasix 40 mg daily, continue oxygen support. Repeat BNP tomorrow. Patient expressed wishes to remain full code. 2. Paroxysmal atrial fibrillation?we will continue anticoagulation 3. Diabetes?continue routine home medications 4. Chronic kidney disease stage III we will monitor renal function 5. DVT prophylaxis?we will add SCDs if patient is not therapeutic on anticoagulation Charges/Coding Visit Charges Inpatient E&M: 32454 Init Hosp L3
[2022-07-08 07:21] LABS: Anion Gap 11 (5-15); BUN 27 mg/dL (7-18); BUN/Creat Ratio 17.6 RATIO (10-20); Calcium,Total 8.6 mg/dL (8.5-10.1); Chloride 105 mmol/L (98-107); Creatinine, Serum 1.53 mg/dL (0.55-1.02); EST Glomerular Filtration Rate 34 mL/min (>60); Est Glom Filt Rate - Afr Amer 41 mL/min (>60); Estimated Creatinine Clearance 19.55 ml/min; Glucose 264 mg/dL (74-106); Potassium 3.3 mmol/L (3.5-5.1); Sodium Level 140 mmol/L (136-145)
--- NOTE | 2022-07-08 07:48 | PCM.PN.HOSP ---
Subjective Subjective Seen and examined. Patient was discharged to intermediate from here with improvement in shortness of breath. In intermediate she got off the oxygen and then left to home few days ago as she was put into isolation in intermediate. Patient is not COVID vaccinated. She has tested twice negative here in intermediate. At home she suddenly got short of breath got dyspneic and hypoxic and therefore admitted. Objective Data Objective Data Vital Signs: Vital Signs Temp Pulse Resp BP Pulse Ox O2 Del Method O2 Flow Rate 98.1 F 95 18 143/69 H 97 Nasal Cannula 4 07/08/22 06:35 07/08/22 06:35 07/08/22 06:35 07/08/22 06:35 07/08/22 06:35 07/08/22 06:35 07/08/22 06:35 Oxygen Flow Rate (L/min) 4 Oxygen Delivery Method Nasal Cannula Weight: 152 lb 5.431 oz Body Mass Index (BMI) 28.8 Lab / Micro Data Result Diagrams: 07/08/22 03:44 07/08/22 06:40 Labs: Laboratory Results - last 24 hr 07/08/22 03:44: WBC 8.6, RBC 3.23 L, Hgb 9.3 L, Hct 28.6 L, MCV 88.5, MCH 28.8, MCHC 32.5, RDW Std Deviation 54.4 H, RDW Coeff of Jesi 16.7 H, Plt Count 228, MPV 9.3, Immature Gran % (Auto) 0.500, Neut % (Auto) 71.4 H, Lymph % (Auto) 14.8 L, [place] % (Auto) 10.8 H, Eos % (Auto) 2.0, Baso % (Auto) 0.5, Absolute Neuts (auto) 6.2, Absolute Lymphs (auto) 1.28, Nucleated RBC % 0 07/08/22 03:44: Sodium 140, Potassium 3.4 L, Chloride 107, Carbon Dioxide 25.0, Anion Gap 8, BUN 27 H, Creatinine 1.48 H, Estim Creat Clear Calc 20.21, Est GFR (MDRD) Af Amer 43 L, Est GFR (MDRD) Non-Af 35 L, BUN/Creatinine Ratio 18.2, Glucose 253 H, Calcium 8.9, Troponin I High Sens 17 07/08/22 03:44: B-Natriuretic Peptide 680.8 H 07/08/22 03:48: Lactic Acid 1.0 07/08/22 06:40: Sodium 140, Potassium 3.3 L, Chloride 105, Carbon Dioxide 24.0, Anion Gap 11, BUN 27 H, Creatinine 1.53 H, Estim Creat Clear Calc 19.55, Est GFR (MDRD) Af Amer 41 L, Est GFR (MDRD) Non-Af 34 L, BUN/Creatinine Ratio 17.6, Glucose 264 H, Calcium 8.6 Radiography Diagnostic Testing: Radiology Impression Chest X-Ray 07/08/22 03:36 IMPRESSION: Mild residual pulmonary vascular congestion with persistent bibasilar opacification and improving perihilar opacities. Bilateral pleural effusions again noted. Electronically Signed: Ventura Murrieta MD at 4:15 EST , Physical Exam Narrative She did not require BiPAP. General: Alert, Oriented x3, Cooperative HEENT: Atraumatic, PERRLA, EOMI, Normocephalic Oral: No Gingival or Mucosal Lesions/ Ulcerations Neck: Supple, No JVD, Negative Carotid Bruits Lungs: Air entry diminished in bilateral lung bases. No crepitation/rhonchi Cardiovascular: Regular rate, Regular Rhythm, Normal S1, Normal S2, systolic murmur over LLSB and right second ICS. Abdomen: Bowel Sounds Present, Soft, Non Tender, Non-Distended : No renal angle tenderness. No suprapubic tenderness. Extremities: Mild 1+ bilateral ankle edema, Capillary Refill Less than 3 Seconds Skin: No rashes, No breakdown Musculoskeletal: No Tenderness to Palpation of Joints or Extremities Neurological: Cranial nerves II-XII grossly intact, DTR 2+/4 and Symmetrical, Neuro grossly intact Psych/Mental Status: Normal Affect, Appropriate. Assessment & Plan Assessment/Plan (1) Chronic kidney disease, stage 3: (2) Diabetes mellitus: QUALIFIERS: Diabetes mellitus type: type 2 PLAN: Plan This is a 86-year-old female was brought by EMS for shortness of breath/acute dyspnea for 1 day along with chest heaviness and some cough. She got off the oxygen after recent admission as mentioned below: 1 acute shortness of breath secondary to acute on chronic HFpEF, pulmonary hypertension: Patient is being admitted in PCU. Patient did not require BiPAP although it was ordered, changed to as needed. Mild hypoxia. On IV Lasix. Heart failure core measures including intake and output, fluid restriction less than 1500 mL, daily weight monitoring, kidney and electrolytes monitoring. BNP elevated. She was recently discharged on 06/23 to SNF after management of acute hypoxic respiratory failure secondary to acute on chronic HFpEF from community-acquired pneumonia 2D echo from June 19, 2022 EF 60%, stage II diastolic dysfunction LA severely enlarged consistent with chronic HFpEF. Moderate MS, mild MR, 1-2+ TR severe pulmonary hypertension, RVSP 66 mmHg. Bioprosthetic AV mean peak gradient 23 mmHg Discussed with the tie binder and he is seen recently. Chest x-ray individually reviewed and shows improvement in bilateral hilar opacity with mild interstitial edema and bibasilar atelectasis. I think cause for dyspnea probably pulmonary hypertension. She had 1 day of Augmentin left yesterday. Mild hypokalemia: Spironolactone 25 mg added. Monitor BMP. 2. Paroxysmal atrial fibrillation? continue anticoagulation 3. Diabetes mellitus type II, with uncontrolled hyperglycemia: Glucose is between 250-350. Started on Lantus 10 units daily. Accu-Chek insulin is covered with Humalog sliding scale.?continue routine home medications. 4. Chronic kidney disease stage G4: monitor renal function. Estimated GFR is about 18-20 mL per minute since early 2021 5. DVT prophylaxis?on Eliquis 2.5 mg twice daily. Patient is full code as per conversation with admitting hospitalist. Total time of the visit including total time spent in counseling or coordination of care, (more than 50% of the total time, spent in obtaining medical information from nurses and other ancillary care providers,explaining to the patient about labs, imaging, diagnosis and management of active complex medical conditions), discussion with the tie binder, review of labs and imaging is 40 minutes. Charges/Coding Visit Charges Inpatient E&M: 35064 [facility] Hosp L3
[2022-07-08 08:44] LABS: BNP,B-Type NATRIURETIC PEPTIDE 862.1 pg/mL (0-100)
[2022-07-08] MEDS: Spironolactone 25 MG Tablet PO (10:33)
[2022-07-08] MEDS: Aspirin 81 MG TAB.CHEW PO (10:33)
[2022-07-08] MEDS: APIXABAN 2.5 MG TABLET (WCH) PO ×2 (10:34→22:57)
[2022-07-08] MEDS: Losartan Potassium 50 MG Tablet PO ×2 (10:34→22:57)
[2022-07-08] MEDS: Metoprolol Tartrate 100 MG Tablet PO (10:35)
[2022-07-08] MEDS: Glimepiride 2 MG Tablet PO (10:35)
[2022-07-08] MEDS: Insulin Glargine-YFGN 100 UNIT/ML Pen 10 UNIT SC (10:37)
[2022-07-08] MEDS: 0.9% Saline Lock 10 ML Syringe IV (10:44)
[2022-07-08 11:11] LABS: Bedside Glucose 238 mg/dL (74-106)
--- NOTE | 2022-07-08 11:30 | CASEMGMT ---
Addendum entered by Won Pagan 07/09/22 16:57: 07/08/22 @ 11:30. states pt also has f/u appt scheduled w/[facility] cardiology Aug 25. Original Note: [facility] readmission note: Prior admission: Pt admitted 06/19/22 w/acute hypoxic resp failure and discharged to [facility] 06/23/22. Current admission: Pt admitted from home 07/08 w/CHF. BR[facility]ERS to room to talk w/pt and her who is at bedside. Introduced self and role. Pt states she was @ [facility] for about 6 days but then signed herself out and returned home w/her . Pt states she has been taking her medications as prescribed and has an upcoming appt w/Dr Saleh on Jul 22. Pt and had multiple questions re: CHF, sodium and fluid restrictions, dietary recommendations, etc. Questions answered. They were also notified that corporate planner has been consulted and will be in to talk w/them and provide information/education. [facility] discussed Pt Link and CCN for ongoing education/monitoring and they are agreeable to referrals to both. Pt states she wishes to return home @ discharge and denies need for HHC. She would like a script for OP therapy to [facility]. NEW VEHICLE SALES CONSULTANT MELINA, Wm, made aware. Pt does not have home O2. They do have a pulse ox. Pt and provided w/list of local DME companies, should pt qualify for O2 @ discharge. They choose [employer]. Pt and deny having further discharge planning needs or concerns. D/C Plan: D/C home w/ and OP therapy. Follow for any home oxygen needs @ discharge. Pt Link referral and CCN referral to possibly follow after Pt Link. Gypsy BARRY RN, CM
--- NOTE | 2022-07-08 11:35 | CASEMGMT ---
Per Won DASILVA CM, pt would like PT link and CCN referrals. These were placed at this time. Pt has pulse ox and RN CM to monitor for home oxygen and therapy notes. Pt states preference for OP therapy. CM to follow. Cristela RN CM
[2022-07-08 13:15] LABS: Bedside Glucose 262 mg/dL (74-106)
--- NOTE | 2022-07-08 13:50 | CHAPLAIN ---
Type of Pastoral Visit _x__ Initial Visit ___ Follow-up Visit ___ On-call Visit ___ General Patient Visit ___ Spiritual Assessment ___ Family Conference ___ Bereavement ___ Rapid Response ___ Code Blue ___ Other (describe below) Pastoral Care Referral From _x__ Patient ___ Family ___ Nurse ___ Physician ___ Social Problems Specialist ___ Cotton Weigher ___ Other (describe below) Sacrament/Intervention _x__ Active listening ___ Anointing ___ Confucianism ___ Bereavement ___ Communion ___ Roxane exploration ___ ___ Life review _x__ Prayer ___ Reconciliation ___ Sacrament of Sick ___ Supportive presence ___ Wedding ___ Other (describe below) Pastoral Comments patient is eating lunch; brief time for visit so pt could eat; pt is a repeat from recent admission; pt still having issues of mostly unknown cause to her; spouse is with her in the room; pt goal is to get answers about issues; pt welcomes presence and prayer
[2022-07-08] MEDS: Insulin Lispro 100 UNIT/ML INSULN.PEN SC ×2 (14:01→16:25)
[2022-07-08] MEDS: Glucerna Shake 120 ML LIQUID PO (16:26)
[2022-07-08 16:50] LABS: Bedside Glucose 168 mg/dL (74-106)
--- NOTE | 2022-07-08 18:56 | NURSING ---
Charting reviewed with Raquel Martinez RN
[2022-07-08] MEDS: amLODIPine 10 MG Tablet PO (22:57)
[2022-07-08] MEDS: Metoprolol(XL)Succ 50 MG Tablet PO (22:58)
[2022-07-08 23:11] LABS: Bedside Glucose 74 mg/dL (74-106)
[2022-07-09] VITALS (12 sets, daily range): BP systolic 128–158; BP diastolic 57–72; PULSE 72–97; RESP 16–20; TEMP 36.6–37.1; O2SAT 93–98
[2022-07-09 06:15] LABS: Absolute Lymphocyte Count 1.34 X10^3/uL (0.83-4.51); Basophil# 0.04 X10^3/uL; Basophil% 0.5 % (0-1); Eosinophil# 0.23 X10^3/uL; Eosinophils% 3.1 % (0-5); Hematocrit 27.6 % (37-47); Hemoglobin 8.5 g/dL (12.0-15.0); Lymphocyte # 1.34 X10^3/ul (0.83-4.51); Mean Corp Hgb Conc 30.8 g/dL (32-36); Mean Corpuscular Hgb 27.8 pg (27.0-32.0); Mean Corpuscular Volume 90.2 fL (81-99); Mean Platelet Vol. 9.7 fl (6.2-12.0); Monocyte# 0.78 X10^3/uL; Monocyte% 10.5 % (0-10); NRBC Flagged by Analyzer 0 % (0-5); Neutrophil # 5.03 X10^3/uL (2.7-7.7); Neutrophil % 67.4 % (47-70); Platelet Count 223 K/mm3 (150-450); RBC Distribution Width CV 16.4 % (11.6-14.6); RBC Distribution Width SD 53.7 fl (35.1-43.9); Red Blood Count 3.06 M/mm3 (4.2-5.4); White Blood Count 7.5 K/mm3 (4.4-11.0)
[2022-07-09 06:38] LABS: Anion Gap 6 (5-15); BUN 23 mg/dL (7-18); BUN/Creat Ratio 20.2 RATIO (10-20); Calcium,Total 8.5 mg/dL (8.5-10.1); Chloride 109 mmol/L (98-107); Creatinine, Serum 1.14 mg/dL (0.55-1.02); EST Glomerular Filtration Rate 48 mL/min (>60); Est Glom Filt Rate - Afr Amer 58 mL/min (>60); Estimated Creatinine Clearance 26.24 ml/min; Glucose 85 mg/dL (74-106); Potassium 3.4 mmol/L (3.5-5.1); Sodium Level 142 mmol/L (136-145)
[2022-07-09 07:20] LABS: Bedside Glucose 77 mg/dL (74-106)
[2022-07-09] MEDS: Aspirin 81 MG TAB.CHEW PO (08:42)
[2022-07-09] MEDS: Glimepiride 2 MG Tablet PO (08:42)
[2022-07-09] MEDS: Glucerna Shake 120 ML LIQUID PO ×3 (08:42→17:08)
[2022-07-09] MEDS: Spironolactone 25 MG Tablet PO ×2 (09:18→13:20)
[2022-07-09] MEDS: Metoprolol Tartrate 100 MG Tablet PO (09:18)
[2022-07-09] MEDS: Losartan Potassium 50 MG Tablet PO ×3 (09:18→23:08)
[2022-07-09] MEDS: APIXABAN 2.5 MG TABLET (WCH) PO ×2 (09:18→23:08)
[2022-07-09] MEDS: Furosemide 40 MG/4 ML Vial IV ×2 (09:18→17:08)
[2022-07-09] MEDS: Insulin Lispro 100 UNIT/ML INSULN.PEN SC (11:04)
[2022-07-09 11:16] LABS: Bedside Glucose 217 mg/dL (74-106)
--- NOTE | 2022-07-09 12:24 | PN.HOSP_ITS ---
Subjective Subjective Follow-up for dyspnea, multifactorial, secondary to CHF and pulmonary hypertension. Patient also recovering from pneumonia Objective Data Objective Data Vital Signs: Vital Signs Temp Pulse Resp BP Pulse Ox O2 Del Method O2 Flow Rate 98.5 F 97 16 128/57 H 97 Nasal Cannula 2 07/09/22 08:37 07/09/22 09:18 07/09/22 08:37 07/09/22 08:37 07/09/22 08:37 07/09/22 08:51 07/09/22 08:51 Oxygen Flow Rate (L/min) 2 Oxygen Delivery Method Nasal Cannula Weight: 152 lb 5.431 oz Body Mass Index (BMI) 28.8 Intake & Output: Intake and Output for Last 24 Hours 07/07/22 07/08/22 07/09/22 23:59 23:59 23:59 Intake Total 480 / 480 350 / 350 Balance 480 / 480 350 / 350 Lab / Micro Data Result Diagrams: 07/09/22 05:49 07/09/22 05:49 Labs: Laboratory Results - last 24 hr 07/08/22 12:57: POC Glucose 262 H 07/08/22 16:17: POC Glucose 168 H 07/08/22 22:39: POC Glucose 74 07/09/22 05:49: WBC 7.5, RBC 3.06 L, Hgb 8.5 L, Hct 27.6 L, MCV 90.2, MCH 27.8, MCHC 30.8 L D, RDW Std Deviation 53.7 H, RDW Coeff of Jesi 16.4 H, Plt Count 223, MPV 9.7, Immature Gran % (Auto) 0.500, Neut % (Auto) 67.4, Lymph % (Auto) 18.0 L , [place] % (Auto) 10.5 H, Eos % (Auto) 3.1, Baso % (Auto) 0.5, Absolute Neuts (auto) 5.0, Absolute Lymphs (auto) 1.34, Nucleated RBC % 0 07/09/22 05:49: Sodium 142, Potassium 3.4 L, Chloride 109 H, Carbon Dioxide 27.0, Anion Gap 6, BUN 23 H, Creatinine 1.14 H, Estim Creat Clear Calc 26.24, Est GFR (MDRD) Af Amer 58 L, Est GFR (MDRD) Non-Af 48 L, BUN/Creatinine Ratio 20.2 H, Glucose 85, Calcium 8.5 07/09/22 06:31: POC Glucose 77 07/09/22 10:58: POC Glucose 217 H Physical Exam Narrative Patient is still short of breath on exertion. No chest pain. Different caus es/dyspnea are discussed including heart failure, pulmonary hypertension. General: Alert, Oriented x3, Cooperative HEENT: Atraumatic, PERRLA, EOMI, Normocephalic Oral: No Gingival or Mucosal Lesions/ Ulcerations Neck: Supple, No JVD, Negative Carotid Bruits Lungs: Air entry diminished in bilateral lung bases. No crepitation/rhonchi Cardiovascular: Regular rate, Regular Rhythm, Normal S1, Normal S2, systolic murmur over LLSB and right second ICS. Status post AVR Abdomen: Bowel Sounds Present, Soft, Non Tender, Non-Distended : No renal angle tenderness. No suprapubic tenderness. Extremities: Mild 1+ bilateral ankle edema, Capillary Refill Less than 3 Seconds Skin: No rashes, No breakdown Musculoskeletal: No Tenderness to Palpation of Joints or Extremities Neurological: Cranial nerves II-XII grossly intact, DTR 2+/4 and Symmetrical, Neuro grossly intact Psych/Mental Status: Normal Affect, Appropriate. Assessment & Plan Assessment/Plan (1) Chronic kidney disease, stage 3: (2) Diabetes mellitus: QUALIFIERS: Diabetes mellitus type: type 2 PLAN: Plan This is a 86-year-old female was brought by EMS for shortness of breath/acute dyspnea for 1 day along with chest heaviness and some cough. She got off the oxygen after recent admission as mentioned below: 1 acute shortness of breath secondary to acute on chronic HFpEF, pulmonary hypertension: Patient is being admitted in PCU. Patient did not require BiPAP although it was ordered, changed to as needed. Mild hypoxia. On IV Lasix. Heart failure core measures including intake and output, fluid restriction less than 1500 mL, daily weight monitoring, kidney and electrolytes monitoring. BNP elevated. She was recently discharged on 06/23 to SNF after management of acute hypoxic respiratory failure secondary to acute on chronic HFpEF from community-acquired pneumonia 2D echo from June 19, 2022 EF 60%, stage II diastolic dysfunction LA severely enlarged consistent with chronic HFpEF. Moderate MS, mild MR, 1-2+ TR severe pulmonary hypertension, RVSP 66 mmHg. Bioprosthetic AV mean peak gradient 23 mmHg 07/09 discussed with the special education math teacher, Dr. Gastelum and agreed that his dyspnea may be from pulmonary hypertension. Advised to increase Lasix 40 mg twice daily and maintain as tolerated per kidney function and hemodynamics. Follow-up with Dr. Turcios in 2 weeks after discharge.. Chest x-ray individually reviewed and shows improvement in bilateral hilar opacity with mild interstitial edema and bibasilar atelectasis. I think cause for dyspnea probably pulmonary hypertension. She completed Augmentin. Lasix dose increased to 40 mg IV twice daily. Mild hypokalemia: Spironolactone dose increased to 50 mg daily. 2. Paroxysmal atrial fibrillation? continue anticoagulation 3. Diabetes mellitus type II, with uncontrolled hyperglycemia: Glucose is between 250-350. Started on Lantus 10 units daily. Accu-Chek insulin is covered with Humalog sliding scale.?continue routine home medications. 4. Chronic kidney disease stage G4: monitor renal function. Estimated GFR is about 18-20 mL per minute since early 07/09 creatinine is 1.14, estimated GFR 26 mL/min. 5. DVT prophylaxis?on Eliquis 2.5 mg twice daily. Patient is full code as per conversation with admitting hospitalist. Total time of the visit including total time spent in counseling or coordination of care, (more than 50% of the total time, spent in obtaining medical in formation from nurses and other ancillary care providers,explaining to the patient about labs, imaging, diagnosis and management of active complex medical conditions), discussion with the special education math teacher, interdisciplinary round, review of labs and imaging is 45 minutes. Laboratory Results 07/08/22 12:57: POC Glucose 262 H 07/08/22 16:17: POC Glucose 168 H 07/08/22 22:39: POC Glucose 74 07/09/22 05:49: WBC 7.5, RBC 3.06 L, Hgb 8.5 L, Hct 27.6 L, MCV 90.2, MCH 27.8, MCHC 30.8 L D, RDW Std Deviation 53.7 H, RDW Coeff of Jesi 16.4 H, Plt Count 223, MPV 9.7, Immature Gran % (Auto) 0.500, Neut % (Auto) 67.4, Lymph % (Auto) 18.0 L , [place] % (Auto) 10.5 H, Eos % (Auto) 3.1, Baso % (Auto) 0.5, Absolute Neuts (auto) 5.0, Absolute Lymphs (auto) 1.34, Nucleated RBC % 0 07/09/22 05:49: Sodium 142, Potassium 3.4 L, Chloride 109 H, Carbon Dioxide 27.0, Anion Gap 6, BUN 23 H, Creatinine 1.14 H, Estim Creat Clear Calc 26.24, Est GFR (MDRD) Af Amer 58 L, Est GFR (MDRD) Non-Af 48 L, BUN/Creatinine Ratio 20.2 H, Glucose 85, Calcium 8.5 07/09/22 06:31: POC Glucose 77 07/09/22 10:58: POC Glucose 217 H Charges/Coding Visit Charges Inpatient E&M: 20025 Subs Hosp L3
[2022-07-09 13:25] LABS: Magnesium 2.3 mg/dL (1.6-2.6)
--- NOTE | 2022-07-09 14:30 | CASEMGMT ---
Green sheet on chart for OP therapy and home oxygen, if qualifies. Cristela RN CM
[2022-07-09 16:07] LABS: Bedside Glucose 93 mg/dL (74-106)
[2022-07-09] MEDS: Glimepiride 1 MG Tablet PO (23:07)
[2022-07-09] MEDS: Metoprolol(XL)Succ 25 MG Tablet PO (23:08)
[2022-07-09] MEDS: amLODIPine 10 MG Tablet PO (23:10)
[2022-07-09 23:40] LABS: Bedside Glucose 121 mg/dL (74-106)
[2022-07-10] VITALS (7 sets, daily range): BP systolic 141–142; BP diastolic 53–71; PULSE 89–90; RESP 16–20; TEMP 36.6–37.7; O2SAT 87–98
[2022-07-10 04:45] LABS: Absolute Lymphocyte Count 1.13 X10^3/uL (0.83-4.51); Absolute Neutrophil Count 5.7 X10^3/uL (2.0-7.7); Basophil# 0.03 X10^3/uL; Basophil% 0.4 % (0-1); Eosinophil# 0.22 X10^3/uL; Eosinophils% 2.7 % (0-5); Hematocrit 25.9 % (37-47); Hemoglobin 8.5 g/dL (12.0-15.0); Lymphocyte # 1.13 X10^3/ul (0.83-4.51); Mean Corp Hgb Conc 32.8 g/dL (32-36); Mean Corpuscular Hgb 29.5 pg (27.0-32.0); Mean Corpuscular Volume 89.9 fL (81-99); Mean Platelet Vol. 9.4 fl (6.2-12.0); Monocyte# 0.96 X10^3/uL; Monocyte% 11.9 % (0-10); NRBC Flagged by Analyzer 0 % (0-5); Neutrophil # 5.73 X10^3/uL (2.7-7.7); Neutrophil % 70.8 % (47-70); Platelet Count 221 K/mm3 (150-450); RBC Distribution Width CV 16.2 % (11.6-14.6); RBC Distribution Width SD 53.2 fl (35.1-43.9); Red Blood Count 2.88 M/mm3 (4.2-5.4); White Blood Count 8.1 K/mm3 (4.4-11.0)
[2022-07-10 06:22] LABS: Anion Gap 8 (5-15); BUN 25 mg/dL (7-18); BUN/Creat Ratio 19.7 RATIO (10-20); Calcium,Total 8.7 mg/dL (8.5-10.1); Chloride 103 mmol/L (98-107); Creatinine, Serum 1.27 mg/dL (0.55-1.02); EST Glomerular Filtration Rate 42 mL/min (>60); Est Glom Filt Rate - Afr Amer 51 mL/min (>60); Estimated Creatinine Clearance 23.55 ml/min; Glucose 95 mg/dL (74-106); Potassium 3.3 mmol/L (3.5-5.1); Sodium Level 138 mmol/L (136-145)
[2022-07-10 06:36] LABS: Bedside Glucose 87 mg/dL (74-106)
[2022-07-10] MEDS: APIXABAN 2.5 MG TABLET (WCH) PO (09:00)
[2022-07-10] MEDS: Aspirin 81 MG TAB.CHEW PO (09:00)
[2022-07-10] MEDS: Metoprolol Tartrate 100 MG Tablet PO (09:00)
[2022-07-10] MEDS: Glucerna Shake 120 ML LIQUID PO (09:00)
[2022-07-10] MEDS: Glimepiride 2 MG Tablet PO (09:00)
[2022-07-10] MEDS: Insulin Glargine-YFGN 100 UNIT/ML Pen 10 UNIT SC (09:02)
[2022-07-10] MEDS: Spironolactone 50 MG Tablet PO (09:02)
[2022-07-10] MEDS: Furosemide 40 MG/4 ML Vial IV (09:03)
[2022-07-10] MEDS: 0.9% Saline Lock 10 ML Syringe IV (09:07)
--- NOTE | 2022-07-10 10:08 | DS.PCM_ITS ---
Providers Date of Admission: 07/08/22 Date of Discharge: 07/10/22 Primary Care Physician: Dr. Baltazar Saleh MD Reason For Visit: ACUTE CONGESTIVE HEART FAILURE Diagnosis Discharge Diagnosis (1) Chronic kidney disease, stage 3: Status: Chronic Code(s): N18.3 - Chronic kidney disease, stage 3 (moderate) (2) Diabetes mellitus: Status: Chronic Code(s): E11.9 - Type 2 diabetes mellitus without complications Qualifiers: Diabetes mellitus type: type 2 Medications at Discharge Home Medications aspirin 81 mg chewable tablet 81 mg PO DAILY@0800 BLOOD THINNER 04/21/17 metoprolol tartrate 100 mg tablet 100 mg PO DAILY hr 04/21/17 amlodipine 10 mg tablet 10 mg PO QHS BP 04/28/17 apixaban 2.5 mg tablet (Eliquis) 2.5 mg PO BID BLOOD THINNER 09/07/19 glimepiride 1 mg tablet 1 mg PO QHS SUGAR 06/19/22 glimepiride 2 mg tablet 2 mg PO DAILY SUGAR 06/19/22 losartan 50 mg tablet 50 mg PO BID BP 06/19/22 metoprolol succinate 25 mg tablet,extended release 24 hr 25 mg PO QHS hr 06/19/22 furosemide 40 mg tablet 40 mg PO BIDCM FLUID #60 tabs 07/10/22 potassium chloride 20 mEq tablet,extended release 20 meq PO DAILY #30 tabs 07/10/22 Hospital Course Operations None Procedures None Summary of Care Provided Minutes Spent on Discharge: 48 Hospital Course: Patient is an 86-year-old female with a past medical history as outlined was admitted through the ED on 07/08/2022 with a complaint of shortness of breath. She had been recently admitted about 2 weeks prior to this admission for acute exacerbation of heart failure as well as pneumonia. She was completing her course of oral antibiotics on outpatient basis but suddenly had worsening shortness of breath and came into the ED. Her BNP was elevated. She was also noted to have severe pulmonary hypertension by recent echo done. She had been compliant with her outpatient Lasix. She was admitted and managed for acute on chronic heart failure with preserved ejection fraction and diuresed with IV Lasix. Her shortness of breath gradually improved and she felt much better. She remained stable and was discharged on 07/10/2022. Her diuretics were increased to 40 mg twice daily. 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 SHe is to also follow up [facility] pulmonology o/a of pulmonary hypertension Patient seen and examined prior to discharge. She had no active complaints and had an uneventful night. REview of systems is otherwise negative. Labs and vitals reviewed. Home meds reviewed and reconciled. Physical Exam Const alert, oriented x3 and no apparent distress General Appearance: cooperative, comfortable and well kempt Orientation / Consciousness: awake Exam Limitations: no limitations HEENT normocephalic, head/scalp atraumatic, hearing grossly normal bilaterally and moist oral mucous membranes Mouth: oral and palatal mucosa normal Eyes PERRL, EOMs intact bilaterally and conjunctivae normal Neck no lymphadenopathy and supple Resp normal respiratory effort, no retractions, no use of accessory muscles and clear to auscultation bilaterally Cardio regular rate, regular rhythm, S1 normal heart sound, S2 normal heart sound and no murmurs GI normal to inspection, nondistended, normoactive bowel sounds, soft to palpation, non-tender and non-distended Extremity normal to inspection and full ROM Skin no rashes or lesions noted Neuro oriented x3, CN's II-XII intact bilaterally, moves all extremities and no focal motor deficits Sensorium / Orientation: awake and alert Motor Exam: strength 5/5 throughout Psych affect normal Weight / BMI Weight Weight: 152 lb 5.431 oz Body Mass Index (BMI) 28.8 ABG / Lab / Microbiology Data Result Diagrams: 07/10/22 04:20 07/10/22 04:20 Laboratory: Laboratory Results - last 24 hr 07/09/22 05:49: Magnesium 2.3 07/09/22 10:58: POC Glucose 217 H 07/09/22 15:38: POC Glucose 93 07/09/22 23:02: POC Glucose 121 H 07/10/22 04:20: WBC 8.1, RBC 2.88 L, Hgb 8.5 L, Hct 25.9 L, MCV 89.9, MCH 29.5, MCHC 32.8 D, RDW Std Deviation 53.2 H, RDW Coeff of Jesi 16.2 H, Plt Count 221, MPV 9.4, Immature Gran % (Auto) 0.200, Neut % (Auto) 70.8 H, Lymph % (Auto) 14.0 L, [place] % (Auto) 11.9 H, Eos % (Auto) 2.7, Baso % (Auto) 0.4, Absolute Neuts (auto) 5.7, Absolute Lymphs (auto) 1.13, Nucleated RBC % 0 07/10/22 04:20: Sodium 138, Potassium 3.3 L, Chloride 103, Carbon Dioxide 27.0, Anion Gap 8, BUN 25 H, Creatinine 1.27 H, Estim Creat Clear Calc 23.55, Est GFR (MDRD) Af Amer 51 L, Est GFR (MDRD) Non-Af 42 L, BUN/Creatinine Ratio 19.7, Glucose 95, Calcium 8.7 07/10/22 06:12: POC Glucose 87 Microbiology: Microbiology 07/08/22 04:25 Blood Culture (Wb) #2 - Anticubital Left Blood Culture - Preliminary No growth in 48 hours. 07/08/22 03:44 Blood Culture (Wb) - Anticubital Right Blood Culture - Preliminary No growth in 48 hours. D/C Instructions Discharge Diet: Low fat / Low cholesterol Discharge Activity: Return to Normal Activity Weight Bearing Status: Weight bearing as tolerated Call your doctor if you observe: Fever of 101 or Higher, Shortness of breath, Dizziness, Swelling in the ankles, Chest pain and Increased palpitations (irregular heartbeat) Meaningful Use Info Meaningful Use Diagnoses (Choose all that apply): CHF CHF MALENA/ARB ordered at discharge?: Yes Documented LVEF (%): 60 Discharge Plan Admission Admit Date/Time: 07/08/22 05:06 Primary Reason for Your Visit: acute on chronic heart failure Attending Provider: Tameka Mendoza Primary Care Provider: Baltazar Saleh Consulting Providers: Herberth Daly ; Goran Swift Instructions Patient Instructions: Heart Failure Additional Instructions / Restrictions: use oxygen 2L as needed for shortness of breath Discharge Orders/Prescriptions Prescriptions: New potassium chloride 20 mEq tablet extended release 20 meq PO DAILY Qty: 30 1RF Continued Eliquis 2.5 mg tablet 2.5 mg PO BID Hold Instructions: Resume on 10/17/21. metoprolol tartrate 100 MG tablet 100 mg PO DAILY Label Comments: blood pressure/heart aspirin 81 MG tablet,chewable 81 mg PO DAILY@0800 Label Comments: heart health amlodipine 10 MG tablet 10 mg PO QHS Label Comments: BLOOD PRESSURE/HEART losartan 50 mg tablet 50 mg PO BID glimepiride 2 mg tablet 2 mg PO DAILY Rx Instructions: 2MG in AM and 1mg QHS glimepiride 1 mg tablet 1 mg PO QHS metoprolol succinate 25 mg tablet extended release 24 hr 25 mg PO QHS Changed furosemide 40 mg tablet 40 mg PO BIDCM Qty: 60 1RF Referrals / Follow Up: Victor Hugo Turcios DO [Med Staff - Active Staff] - Within 2 Weeks Baltazar Saleh MD [Primary Care Provider] - Within 1 Week (Per pt, she has an appt w/Dr Saleh on Jul 22. ) Disposition Disposition (needs filled in before D/C Order can be placed): Home, Self Care Charges/Coding Visit Charges Inpatient E&M: 20491 Disch Hosp
--- NOTE | 2022-07-10 10:24 | NURSING ---
Radha called per green sheet instructions to set up oxygen. Spoke to [employer]. Received call from [employer] jukebox route driver who is going to call pt to set up time to deliver home oxygen.
[2022-07-10] MEDS: Potassium Chloride Oral Tablet 20 MEQ 40 MEQ PO (10:55)
== END 2022-07-10 11:51 | disposition home or self-care (01) | DRG 291 ==
LOC: ED 03:57 → PCU 05:17
PROVIDERS: Internal Medicine; Admitting Provider Family Medicine; Emergency Provider Emergency Medicine; PCP Family Medicine; Visit Provider Student in an Organized Health Care Education/Training Program
DX: I13.0 Hypertensive heart and chronic kidney disease with heart failure and stage 1 through stage 4 chronic kidney disease, or unspecified chronic kidney disease (principal); I50.33 Acute on chronic diastolic (congestive) heart failure; J96.01 Acute respiratory failure with hypoxia; I27.20 Pulmonary hypertension, unspecified; E11.22 Type 2 diabetes mellitus with diabetic chronic kidney disease; I48.0 Paroxysmal atrial fibrillation; N18.30 Chronic kidney disease, stage 3 unspecified; E11.65 Type 2 diabetes mellitus with hyperglycemia; E78.5 Hyperlipidemia, unspecified; I65.23 Occlusion and stenosis of bilateral carotid arteries; I25.10 Atherosclerotic heart disease of native coronary artery without angina pectoris; I25.5 Ischemic cardiomyopathy; E87.6 Hypokalemia; I34.0 Nonrheumatic mitral (valve) insufficiency; I25.2 Old myocardial infarction; Z28.310 Unvaccinated for COVID-19; Z79.01 Long term (current) use of anticoagulants; Z79.82 Long term (current) use of aspirin; Z79.84 Long term (current) use of oral hypoglycemic drugs; Z79.899 Other long term (current) drug therapy; Z95.5 Presence of coronary angioplasty implant and graft; Z95.2 Presence of prosthetic heart valve
CPT/HCPCS: 36415; 71045; 80048; 82962; 83605; 83735; 83880; 84484; 85025; 87040; 93005; 94640; 94762; 97162; 97165; 97802; 97803; 99285; A4216; J1940

== ENCOUNTER 2022-08-19 15:30 | Outpatient (RCR) | payer MEDICARE, OTHER, SELFPAY ==
--- NOTE | 2022-07-16 16:08 | HP.PTEVAL_ITS ---
Patient's Visit Information PHUC AIKEN is a 86 year old F referred to Physical Therapy by Dr. Baltazar Saleh MD with a diagnosis of CHF and Pulmonary HTN. Date of Evaluation: 07/16/22 Physical Therapist: ABDULAZIZ Oreilly - Visit Plan Frequency: 2x /Week Duration: 6 Weeks Plan: 2X/ week for 6 weeks for LE strength, gait training, endurance, stairs, curb steps, some balance with HEP. HEP: standing hip flex, standing hip abd, standing heel and toe raises - Subjective Pt reports that she needs some exercise and she has been laying in bed too long. She has no pain. She was in bed because she had pnumonia in B lungs and went home and got fluid on the lungs. Everything is good now except that she is on oxygen and was not before. She is on 2 L of oxygen. She got out of the hospital on . She was in bed about 2 weeks total and she feels weaker. She lives on a one story home with bed and bath on one floor. She goes up the steps to do laundry and she showers down there and she uses 2 railings. She reports no trouble getting up out of a chair. She has no issues with rolling over in bed. She is going to see an orthopedic Dr in a few days and will get a shot in it. Dr says she does not need surgery. Pt thinks that her balance is pretty good and no falls. Pt wants to get her strength back. - Objective Gait: walks with 2 L O2 and slow kacy and decreased step length, decrease stance time on the R LE. LE MMT: R hip flex 11.9# and L hip fex 11.1#. R knee ext 22.8# and L 18.4#. R knee flex 13# and L 14.9#. UE AROM: R flex 11.1# and L flex 9.9#. R ER 15.6# and L ER 12.1#. Stairs: NT. Sit to stand: has to use arms to get out of a chair. When uses arms she is able to get up on first attempt - Balance/Special Test Scores Functional Gait Assessment Score: 8 % Disability: 73.3400 Lower Extremity Functional Score: 16 - Goals Goal 1:: I HEP Goal Time Frame: 6-8 Weeks Goal 2:: Be able to walk with increase stride length Goal Time Frame: 6-8 Weeks Goal 3:: Be able to get out of a chair with 1 arm rest or less X 5 in a row Goal Time Frame: 6-8 Weeks Goal 4:: Increase LE strength (at time of the eval: R hip flex 11.9# and L hip fex 11.1#. R knee ext 22.8# and L 18.4#. R knee flex 13# and L 14.9#) - Rehabilitation Potential Rehabilitation Potential: Good - Anticipated Interventions Patient/Client Instruction: Educate patient on: Condition, Plan of Care For the Purpose of:: To improve nutrient delivery to tissue, To improve muscle performance and motor function, To improve ability to perform ADL's, To increase tolerance to activity/condition/position, To improve performance and independence with ADL's, To decrease level of supervision to perform tasks, To improve ability of physical actions for home/community/work/leisure, To improve gait and locomotor functions, To improve health of tissue, To increase flexibility/ROM, To improve endurance, To improve balance, To improve safety with gait Therapeutic Exercise to Include: Strength training, Endurance training, Balance training, Postural training, Flexibilty training, Gait and locomotor training, Neuromotor development, Active ROM For the Purpose of:: To decrease pain, To improve nutrient delivery to tissue, To improve muscle performance and motor function, To improve ability to perform ADL's, To increase tolerance to activity/condition/position, To improve performance and independence with ADL's, To decrease level of supervision to perform tasks, To improve ability of physical actions for home/community/work/leisure, To improve gait and locomotor functions, To improve health of tissue, To decrease soft tissue restriction, To increase flexibility/ROM, To improve endurance, To improve balance, To improve safety with gait Functional Training to Include: Gait training For the Purpose of:: To improve gait and locomotor functions, To improve safety with gait Thank you for the opportunity to evaluate your patient. For Medicare and Medicare HMO plans, please review the plan of care and approve it. It will need to be FAXED BACK to us at [phone] for Medicare purposes. For Medicare only, by signing this I certify the plan of care. Please let me know if there are questions or concerns regarding this plan of care. Physician Signature: Date:
--- NOTE | 2022-07-17 07:41 | HP.OTEVAL ---
Patient's Visit Information PHUC AIKEN is a 86 year old F, referred to Occupational Therapy by Dr. Baltazar Saleh MD, with a diagnosis of CHF, pulmonary HTN. Date of Evaluation: 07/16/22 Occupational Therapist: Tiffany Savage, RADHA/Kirk, CHT - Subjective The 86 year old female was seen for OT eval with dx of CHF and pulmonary HTN, generalized weakness. pt states she went to hospital due to SOB. pt states she went by squad to take her. she spent few days with pneumonia. pt is currently on 2 liters of O2. pt lives with her and he is helping with daily tasks because she does not have the strength to do everything she was doing prior to her hospital admission. pt would like to get stronger to increase her IND. with ADLs and IADLs - ADLs Comments: pt states her walk in shower is in basement- is able to go up and down stairs with use of handrails. does cooking and cleaning. both do laundry it is located in the basement. pt lives in ranch home with basement. pt having difficulty sleeping due to right knee pain - ROM ROM Comments: pt demo full ROM of bilateral UE - Strength Shoulder: peak force right 8# left 7.5# Elbow: peak force biceps/triceps right 15#/20# left 11/18# Metal Wire Technician: right 30# left 25# Lateral Pinch: right 4# left 4# Tripod Pinch: right 4# left 2# Strength Comments: pt demo with generalized weakness of UB - Sensation Sensation Comments: denies - Goals Goal:: pt will demo the a increase in bilateral shoulder strength by testing peak force at 15# or greater to increase ind. with ADLs by d/.c. pt will demo a increase in bilateral hand strength by 10# to increase pts ind. with ADLs and IADLs by d.c Goal:: pt will report the ability to perform bathing/dressing with no c/o SOB by d/c. pt will demo the ability to perform 8 min exercises with O2. on and no decrease in SpO2 less than 89 indicating increase in endurance to safely perform ADLS by d.c. pt will demo understanding of using ad. eq. to conserve energy to decrease SOB with daily tasks by d/c - Rehabilitation General Assessment: pt demo with generalized weakness increasing safety risk and requiring families assistance with ADLs and IADLs. pt would benefit from skilled OT services 2x week for 4 weeks to return pt to PLOF. Rehabilitation Potential: Good - Anticipated Interventions Strengthening, Joint Protection/Energy Conservation, Education re assistive Equipment, Education re Diagnosis, Caregiver Training, Home Program - Visit Plan Frequency: 2x /Week Duration: 4 Weeks TEXT: Thank you for the opportunity to evaluate your patient. For Medicare and Medicare HMO plans, please review the plan of care and approve it. It will need to be FAXED BACK to us at [phone] for Medicare purposes. Please let me know if there are questions or concerns regarding this plan of care. Physician Signature: Date:
--- NOTE | 2022-11-26 15:28 | HP.OT.NRP ---
PHUC AIKEN was seen in my office for initial evaluation on 07/16/22. The following Plan of Care was established for this patient: Initial Frequency: 2x /Week Initial Duration: 4 Weeks Plan: Continue POC. 4 weeks (2x per week) Anticipated Interventions: Strengthening, Joint Protection/Energy Conservation, Education re assistive Equipment, Education re Diagnosis, Caregiver Training, Home Program This patient was last seen in our office 07/31/22. Pertinent comments regarding their Occupational therapy will appear below: Pt attended 3 OT sessions- due to multiple cancellations and no shows- and time lapse in services pt is d/c at this time. At this point I will be discontinuing this patient from occupational therapy. I would be happy to see this patient again in the future if found appropriate by the physician. Thank you! Tiffany Savage, OTR/L, CHT
== END 2022-08-19 19:00 | disposition home or self-care (01) ==
LOC: OT 15:30
PROVIDERS: PCP Family Medicine; Referring Provider Family Medicine; Visit Provider Family Medicine
DX: I27.20 Pulmonary hypertension, unspecified (principal); I50.9 Heart failure, unspecified
CPT/HCPCS: 97110; 97161; 97166

== ENCOUNTER 2022-09-15 04:44 | Inpatient (IN) | payer MEDICARE, OTHER, SELFPAY ==
[2022-09-15] VITALS (24 sets, daily range): BP systolic 116–155; BP diastolic 49–98; PULSE 84–125; RESP 12–50; TEMP 36.3–37.2; O2SAT 89–100; BMI 29.6; BMI 27.8
--- NOTE | 2022-09-15 04:53 | EKG12_ITS ---
Test Reason : SOB Blood Pressure : / mmHG Vent. Rate : 107 BPM Atrial Rate : 107 BPM P-R Int : 156 ms QRS Dur : 076 ms QT Int : 342 ms P-R-T Axes : 066 -04 077 degrees QTc Int : 456 ms Sinus tachycardia Nonspecific ST and T wave abnormality Abnormal ECG Confirmed by ELVA ARMENTA, NORM ([id number]), editor city [place] RICK ([id number]) on 09/17/2022 2:08:24 PM Referred By: Confirmed By:NORM STEVENSON MD
--- NOTE | 2022-09-15 05:03 | EDS_ITS ---
HPI History of Present Illness Chief Complaint: Shortness of Breath Informant: patient and EMS Narrative Narrative: I talked with EMS about symptoms. Patient's been very short of breath for about a week. They placed her on BiPAP and have had significant improvement. She had had O2 sats at 83% at home but has improved with BiPAP on the way him. Patient denies pain. She admits to a cough. Her history is quite limited as she is still on EMS BiPAP which makes hearing her voice over the noise of the apparatus quite difficult. She does have known CHF. She does not have a history of COPD. She is on Eliquis and is reportedly taking this. I did review her chart. She has a prior echocardiogram from June of this year that showed an EF of 60%. But she does have significant CHF history. 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) Hyperlipidemia Hypertension associated with diabetes Hypoxia Ischemic cardiomyopathy Mitral annular calcification Nonrheumatic aortic (valve) stenosis Nonrheumatic mitral (valve) insufficiency Normocytic anemia Paroxysmal atrial fibrillation Renal artery stenosis Home Medications aspirin 81 mg chewable tablet 81 mg PO DAILY@0800 BLOOD THINNER 04/21/17 [History Last Taken 06/18/22] amlodipine 10 mg tablet 10 mg PO QHS BP 04/28/17 [History Last Taken 06/18/22] apixaban 2.5 mg tablet (Eliquis) 2.5 mg PO BID BLOOD THINNER 09/07/19 [History Last Taken 06/18/22] glimepiride 1 mg tablet 1 mg PO QHS SUGAR 06/19/22 [History Last Taken 06/18/22] glimepiride 2 mg tablet 2 mg PO DAILY SUGAR 06/19/22 [History Last Taken 06/18/22] losartan 50 mg tablet 50 mg PO BID BP 06/19/22 [History Last Taken 06/18/22] metoprolol succinate 25 mg tablet,extended release 24 hr 25 mg PO QHS hr 06/19/22 [History Last Taken 06/18/22] furosemide 40 mg tablet 40 mg PO BIDCM FLUID #60 tabs 07/10/22 [Rx Last Taken 06/18/22] potassium chloride 20 mEq tablet,extended release 20 meq PO DAILY #30 tabs 07/10/22 [Rx Last Taken Unknown] clopidogrel 75 mg tablet 75 mg PO DAILY 07/30/22 [History Last Taken Unknown] metoprolol succinate 100 mg tablet,extended release 24 hr 100 mg PO DAILY 07/30/22 [History Last Taken Unknown] Allergy/AdvReac Type Severity Reaction Status Date / Time No Known Allergies Allergy Verified 09/15/22 04:50 Family History Sister Asthma Breast cancer Hypertension Hyperlipidemia Melanoma Father , From old age per patient. Denies specific medical problems. No problems noted. Mother , From old age per patient. Denies specific medical problems. No problems noted. Surgical History History of appendectomy History of coronary angioplasty (09/18/21) History of left heart catheterization (04/2017) Social History household members: spouse Smoking Status: Never smoker alcohol intake: never substance use type: does not use caffeine: Yes Type: coffee Number of servings: 1 ROS ROS ED Constitutional Constitutional ED: Denies chills, fever(s) or sweats ENT ENT ED: Denies rhinorrhea or sore throat Cardiovascular Cardiovascular: Denies chest pain, palpitations or racing heartbeat Respiratory/Chest Respiratory/Chest: Denies cough or sputum Gastrointestinal Gastrointestinal: Denies nausea or vomiting Musculoskeletal Musculoskeletal: Denies myalgias Integumentary Denies rash Neurologic Neurologic: Denies headache(s) Endocrine Endocrinology: Denies polydipsia or polyuria Hematologic/Lymphatic Hematologic/Lymphatic: Reports easy bleeding and easy bruising Allergic/Immunologic Allergic/Immunologic ED: Denies urticaria EXAM Physical Exam Const Vital Signs: 09/15/22 04:45 09/15/22 04:51 09/15/22 05:17 Temperature 97.4 F L Temperature Source Temporal Pulse Rate 125 H 107 H Respiratory Rate 34 H 27 H Respiratory Effort Short of Breath Labored Blood Pressure 142/74 H 118/61 Blood Pressure Mean 96 80 Pulse Ox 92 97 Oxygen Delivery Method CPAP CPAP Bi-pap Fraction of Inspired Oxygen (FIO2) 09/15/22 04:50 09/15/22 05:46 09/15/22 06:00 Temperature Temperature Source Pulse Rate 110 H 102 H 101 H Respiratory Rate 32 H 26 H 29 H Respiratory Effort Blood Pressure 116/63 124/71 H Blood Pressure Mean 80 88 Pulse Ox 97 97 97 Oxygen Delivery Method Bi-pap Bi-pap Fraction of Inspired Oxygen (FIO2) 60 35 Positive well nourished and well developed Constitutional Narrative: Patient is awake and alert. She is working to breathe but evidently doing much better on BiPAP. General Appearance ED: well developed; Negative for pallor HEENT Reports moist mucous membranes Eyes EOMs intact bilaterally General Eye ED: Negative for scleral icterus Neck no meningeal signs Resp Resp Narrative: Coarse respirations bilaterally with rales at the bottom half. I really do not hear any wheezing. I hear no isolated rhonchi. She is not coughing. Cardio regular rhythm and no murmurs Rate: tachycardic GI non-tender and non-distended Extremity normal to inspection Extremity Narrative: Despite her history of CHF and being on Lasix, I do not see any peripheral edema. However her last echo also showed an EF of 60%. Neuro oriented x3 Neuro Narrative: Patient is awake and alert. She is not at all sleepy or lethargic. Psych mental status grossly normal Psych Narrative: Patient seems to be awake and alert. Skin Skin Narrative: No diaphoresis. General Skin Exam: Negative for jaundice or pallor MDM MDM MDM Narrative Medical decision making narrative: Gerson was able to reevaluate the patient. She states she has been having off-and-on dyspnea episodes ever since she had pneumonia back in June. Over the last few days to a week she has had more shortness of breath. It clearly is worse when she lays flat. She has been taking her Lasix twice a day. She has been taking her Eliquis twice a day. Her last salty meal was likely on Thursday night when she went to [employer]. No other increase in salt that she knows of. She denies any chest pain or pressure at all. She states she really does not cough much but when she does she brings up just a little clear fluid. No color or no blood. She has not had any fevers or chills. She has never had peripheral edema. My independent interpretation of her single view AP chest is consistent with bilateral increased markings that are more likely congestive heart failure given the totality of her history. There are indications of prior what looks to be stenting of valve. This does look worse than prior x-ray but her right effusion area is better. Her CBC does show an elevated white count at 16.8. This may be demargination. As she has no sputum production or fever. She has baseline anemia at 9.6. Platelets are normal. Electrolytes show creatinine is a little bit above her baseline and currently 1.52. Lactic acid is normal. Troponin is a bit high at 177. This is likely due to myocardial stretch and possibly hypoxia at home. BNP is 945 which is above her baseline. Patient is doing much better on BiPAP. We started Lasix. Her heart rate is down from mid 120s down to about 100 now. Her oxygen level is good. She feels much better. Her lungs actually sound better. With her complex history, medication, symptoms, elevated troponin and need for BiPAP I think she does need to come in the hospital. She initially was hypoxic tachycardic and tachypneic. She is doing much better. Her blood pressure is down, heart rate down, respiratory rate down and oxygen saturation is up despite lowering her of her FiO2. I discussed the case with hospitalist and patient will be admitted. Lab Data Attestation: I reviewed the patient's lab results. Labs: Laboratory Results - last 24 hr 09/15/22 09/15/22 09/15/22 04:55 04:55 04:55 WBC 16.8 H RBC 3.57 L Hgb 9.6 L Hct 30.0 L MCV 84.0 MCH 26.9 L MCHC 32.0 RDW Std Deviation 46.8 H RDW Coeff of Jesi 15.4 H Plt Count 338 MPV 9.3 Immature Gran % (Auto) 0.500 Neut % (Auto) 80.3 H Lymph % (Auto) 6.4 L [place] % (Auto) 10.8 H Eos % (Auto) 1.8 Baso % (Auto) 0.2 Absolute Neuts (auto) 13.5 H Absolute Lymphs (auto) 1.07 Nucleated RBC % 0 [address] Review May foll Anisocytosis 1+ Sodium 139 Potassium 3.6 Chloride 106 Carbon Dioxide 21.0 Anion Gap 12 BUN 42 H Creatinine 1.52 H Estim Creat Clear Calc 19.68 Est GFR (MDRD) Af Amer 42 L Est GFR (MDRD) Non-Af 34 L BUN/Creatinine Ratio 27.6 H Glucose 294 H Lactic Acid 1.4 Calcium 9.1 Troponin I High Sens 177 H* B-Natriuretic Peptide 09/15/22 04:55 WBC RBC Hgb Hct MCV MCH MCHC RDW Std Deviation RDW Coeff of Jesi Plt Count MPV Immature Gran % (Auto) Neut % (Auto) Lymph % (Auto) [place] % (Auto) Eos % (Auto) Baso % (Auto) Absolute Neuts (auto) Absolute Lymphs (auto) Nucleated RBC % Diff Path Review Anisocytosis Sodium Potassium Chloride Carbon Dioxide Anion Gap BUN Creatinine Estim Creat Clear Calc Est GFR (MDRD) Af Amer Est GFR (MDRD) Non-Af BUN/Creatinine Ratio Glucose Lactic Acid Calcium Troponin I High Sens B-Natriuretic Peptide 945.5 H EKG Initial EKG: Comments: My independent interpretation of the patient's EKG shows a sinus rhythm with tachycardic rate at 107. No ventricular ectopy. She does have some lateral ST depression mostly in V5 and V6. She has had some of this before but it might be a little bit more. Variation in lead positioning could change this also. No sign of ST elevation. [place] interval, QRS duration and QTc are normal. 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 aspirin 81 MG tablet,chewable 81 mg PO DAILY@0800 Label Comments: [employer] amlodipine 10 MG tablet 10 mg PO QHS Label Comments: BLOOD PRESSURE/HEART losartan 50 mg tablet 50 mg PO BID glimepiride 2 mg tablet 2 mg PO DAILY Rx Instructions: 2MG in AM and 1mg QHS glimepiride 1 mg tablet 1 mg PO QHS metoprolol succinate 25 mg tablet extended release 24 hr 25 mg PO QHS potassium chloride 20 mEq tablet extended release 20 meq PO DAILY Qty: 30 1RF furosemide 40 mg tablet 40 mg PO BIDCM Qty: 60 1RF metoprolol succinate 100 mg Tablet Extended Release 24 Hr 100 mg PO DAILY clopidogrel 75 mg Tablet 75 mg PO DAILY Primary Care Provider: Care Physician,No Primary Referrals: Baltazar Saleh MD [Non-Staff] - Disposition Disposition: Acute Care Hospital [facility]
[2022-09-15 05:08] LABS: Absolute Lymphocyte Count 1.07 X10^3/uL (0.83-4.51); Absolute Neutrophil Count 13.5 X10^3/uL (2.0-7.7); Basophil# 0.04 X10^3/uL; Basophil% 0.2 % (0-1); Eosinophil# 0.31 X10^3/uL; Eosinophils% 1.8 % (0-5); Hemoglobin 9.6 g/dL (12.0-15.0); Lymphocyte # 1.07 X10^3/ul (0.83-4.51); Lymphocyte % 6.4 % (19-41); Mean Corpuscular Hgb 26.9 pg (27.0-32.0); Mean Platelet Vol. 9.3 fl (6.2-12.0); Monocyte# 1.82 X10^3/uL; Monocyte% 10.8 % (0-10); NRBC Flagged by Analyzer 0 % (0-5); Neutrophil # 13.45 X10^3/uL (2.7-7.7); Neutrophil % 80.3 % (47-70); POSITIVE DIFFERENTIAL YES; Platelet Count 338 K/mm3 (150-450); RBC Distribution Width CV 15.4 % (11.6-14.6); RBC Distribution Width SD 46.8 fl (35.1-43.9); Red Blood Count 3.57 M/mm3 (4.2-5.4); White Blood Count 16.8 K/mm3 (4.4-11.0)
[2022-09-15] MEDS: Furosemide 40 MG/4 ML Vial IV ×4 (05:11→19:54)
--- NOTE | 2022-09-15 05:18 | RAD_ITS ---
STUDY: X-RAY CHEST REASON FOR EXAM: Female, 86 years old. Shortness of breath. TECHNIQUE: Single AP portable view of the chest. COMPARISON: July 08, 2022. FINDINGS: Small bilateral pleural effusions decreased since the prior study. There are patchy airspace opacities right greater than left increased since the prior study. Normal size heart. Prosthetic aortic valve. Calcified mediastinal and hilar lymph nodes. Normal visualized pulmonary arteries. Atherosclerotic calcification aortic arch. Normal visualized thoracic spine. Normal visualized ribs, clavicles, and shoulders. There is no demonstrated abnormality of the visualized soft tissue structures of the upper abdomen. RAD/Chest 1 View (Portable) IMPRESSION: Worsening asymmetric vascular congestion versus bilateral pneumonia. Small bilateral pleural effusions improved. Old granulomatous disease. Electronically Signed: Francisco Singer MD at 6:21 EST Reading Location ID and State: [id number] / , Service support ,
[2022-09-15 05:34] LABS: BNP,B-Type NATRIURETIC PEPTIDE 945.5 pg/mL (0-100)
[2022-09-15 05:36] LABS: Lactic Acid 1.4 mmol/L (0.4-1.9)
[2022-09-15 05:39] LABS: Anion Gap 12 (5-15); BUN 42 mg/dL (7-18); BUN/Creat Ratio 27.6 RATIO (10-20); Calcium,Total 9.1 mg/dL (8.5-10.1); Chloride 106 mmol/L (98-107); Creatinine, Serum 1.52 mg/dL (0.55-1.02); EST Glomerular Filtration Rate 34 mL/min (>60); Est Glom Filt Rate - Afr Amer 42 mL/min (>60); Estimated Creatinine Clearance 19.68 ml/min; Glucose 294 mg/dL (74-106); Potassium 3.6 mmol/L (3.5-5.1); Sodium Level 139 mmol/L (136-145); Troponin-I HS 177 pg/mL (3.0-54.0)
[2022-09-15 05:41] LABS: Differential Indicated SCAN CRITERIA MET
[2022-09-15 05:43] LABS: Anisocytosis 1+
--- NOTE | 2022-09-15 06:20 | HP.PCM.HOS_ITS ---
HPI - General General Date of Admission: 09/15/22 Date of Service: 09/15/22 Chief Complaint: Dyspnea, orthopnea, hypoxia. HPI Narrative The patient is an 86 y/o F w/ PMHx: CAD s/p PCI, Valvular Heart Disesaes, Combined Systolic/Diastolic CHF/Ischemic Cardiomyopathy, CKD stage III, HTN, HLD, Chronic anemia, PAF, Diabetes mellitus type II who presents to the [facility] ED on 09/15/22 with history of progressive ongoing dyspnea x1 week reportedly 83% at home however this improved with placement on BiPAP on route with concurrent cough with no recent fevers or chills however given severity prompted ED evaluation. She denies any associated chest pain. She denies any recent increased weight gain, edema but does have notable orthopnea. She does report recent [employer] food intake the Thursday prior. Work-up in the ED included 97.4, heart rate 125, BP 142/74, respiratory rate 34, initially presented on CPAP transition to BiPAP, currently heart rate 102, respiratory rate 26, 97% on BiPAP, CBC with WBC 16.8, hemoglobin 9.6, platelets 238 with left shift, BMP with BUN/creatinine 42/1.52, glucose 294, troponin 177, BNP 945.5, lactic acid 1.4, chest x-ray with preliminary appearance of bilateral increased markings suspicious for CHF exacerbation, ST V5-V6 mild depression but similar to prior. 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/17) Hyperlipidemia Hypertension associated with diabetes Hypoxia Ischemic cardiomyopathy Mitral annular calcification Nonrheumatic aortic (valve) stenosis Nonrheumatic mitral (valve) insufficiency Normocytic anemia Paroxysmal atrial fibrillation Renal artery stenosis Home Medications aspirin 81 mg chewable tablet 81 mg PO DAILY@0800 BLOOD THINNER 04/21/17 [History Last Taken 06/18/22] amlodipine 10 mg tablet 10 mg PO QHS BP 09/12/17 [History Last Taken 06/18/22] apixaban 2.5 mg tablet (Eliquis) 2.5 mg PO BID BLOOD THINNER 09/07/19 [History Last Taken 06/18/22] glimepiride 1 mg tablet 1 mg PO QHS SUGAR 06/19/22 [History Last Taken 06/18/22] glimepiride 2 mg tablet 2 mg PO DAILY SUGAR 06/19/22 [History Last Taken 06/18/22] losartan 50 mg tablet 50 mg PO BID BP 06/19/22 [History Last Taken 06/18/22] metoprolol succinate 25 mg tablet,extended release 24 hr 25 mg PO QHS hr 06/19/22 [History Last Taken 06/18/22] furosemide 40 mg tablet 40 mg PO BIDCM FLUID #60 tabs 07/10/22 [Rx Last Taken 06/18/22] potassium chloride 20 mEq tablet,extended release 20 meq PO DAILY #30 tabs 07/10/22 [Rx Last Taken Unknown] clopidogrel 75 mg tablet 75 mg PO DAILY 07/30/22 [History Last Taken Unknown] metoprolol succinate 100 mg tablet,extended release 24 hr 100 mg PO DAILY 07/30/22 [History Last Taken Unknown] Allergy/AdvReac Type Severity Reaction Status Date / Time No Known Allergies Allergy Verified 09/15/22 04:50 Family History Sister Asthma Breast cancer Hypertension Hyperlipidemia Melanoma Father , From old age per patient. Denies specific medical problems. No problems noted. Mother , From old age per patient. Denies specific medical problems. No problems noted. Surgical History History of appendectomy History of coronary angioplasty (09/18/21) History of left heart catheterization (04/2017) Social History (Updated 09/15/22 @ 06:[address] Breanna Guerra MD) household members: spouse Smoking Status: Never smoker alcohol intake: never substance use type: does not use caffeine: Yes Type: coffee Number of servings: 1 ROS ROS Narrative Admission Review of Systems: CONSTITUTIONAL: No weight loss, fever, chills, + weakness or fatigue. HEENT: Eyes: No visual loss, blurred vision, double vision or yellow sclerae. Ears, Nose, Throat: No hearing loss, sneezing, congestion, runny nose or sore throat. SKIN: No rash or itching, lesions, wounds. CARDIOVASCULAR: + Orthopnea, No chest pain, chest pressure or chest discomfort, palpitations, edema, syncopal events. RESPIRATORY: + shortness of breath, cough without marked sputum, No wheezing, hemoptysis. GASTROINTESTINAL: No anorexia, nausea, vomiting or diarrhea, abdominal pain, melena, BRBPR. GENITOURINARY: No dysuria, frequency, urgency or retention. NEUROLOGICAL: No headache, dizziness, syncope, paralysis, ataxia, numbness or tingling in the extremities, focal weakness, change in bowel or bladder control, seizure. MUSCULOSKELETAL: + muscle, back pain, joint pain or stiffness. HEMATOLOGIC: + anemia, bleeding or bruising. LYMPHATICS: No enlarged nodes. No history of splenectomy. PSYCHIATRIC: No history of depression or anxiety. ENDOCRINOLOGIC: No reports of sweating, cold or heat intolerance. No polyuria or polydipsia. ALLERGIES: No history of asthma, hives, eczema or rhinitis. Vital Signs Vital Signs Vital Signs: 09/15/22 04:45 09/15/22 04:51 09/15/22 05:17 Temperature 97.4 F L Temperature Source Temporal Pulse Rate 125 H 107 H Respiratory Rate 34 H 27 H Respiratory Effort Short of Breath Labored Blood Pressure 142/74 H 118/61 Blood Pressure Mean 96 80 Pulse Ox 92 97 Oxygen Delivery Method CPAP CPAP Bi-pap Fraction of Inspired Oxygen (FIO2) 09/15/22 04:50 09/15/22 05:46 09/15/22 06:00 Temperature Temperature Source Pulse Rate 110 H 102 H 101 H Respiratory Rate 32 H 26 H 29 H Respiratory Effort Blood Pressure 116/63 124/71 H Blood Pressure Mean 80 88 Pulse Ox 97 97 97 Oxygen Delivery Method Bi-pap Bi-pap Fraction of Inspired Oxygen (FIO2) 60 35 Weight Weight: 156 lb 15.506 oz Body Mass Index (BMI) 29.6 Physical Exam Narrative Physical Examination: General: Awake, alert, oriented x3, cooperative, seated upright in ED bed, fatigued, BiPAP in place, respiratory distress is lessening. Skin: Normal color, normal turgor, no icterus, no cyanosis except occasional staged ecchymoses and bilateral lower extremity chronic venous stasis skin llam[place]. HEENT: AT/NC, EOMI, PERRLA, dry MM, BiPAP in place, no carotid bruits, + JVD noted. Lungs: Notably diminished, greater bases, bilateral rales, mildly increased respiratory rate, accessory muscle usage and distress is significantly improving, BiPAP in place, no rhonchi or wheezing. Heart: Tachycardic with regular rhythm; no gallop, rub audible, + SM status post prior TAVR. Abdomen: Soft, overweight, NTTP, ND, distant normal BS, no HSM. Extremities: No cyanosis, no clubbing, bilateral distal ankle not markedly pitting edema Neurological: Patient awake, alert, oriented as noted, cognitive function intact; pupils equally reactive to light and accommodation, cranial nerves II- XII grossly normal, moving all 4 extremities, no focal deficits, strength severely global decrease secondary to acute presentation. Psychiatric: Affect appears fatigued, respiratory distress is lessening, no acute evidence of depressive or anxiety feelings. Results Lab / Micro Data Result Diagrams: 09/15/22 04:55 09/15/22 04:55 Labs: Laboratory Results - last 24 hr 09/15/22 04:55: WBC 16.8 H, RBC 3.57 L, Hgb 9.6 L, Hct 30.0 L, MCV 84.0, MCH 26.9 L, MCHC 32.0, RDW Std Deviation 46.8 H, RDW Coeff of Jesi 15.4 H, Plt Count 338, MPV 9.3, Immature Gran % (Auto) 0.500, Neut % (Auto) 80.3 H, Lymph % (Auto) 6.4 L, [place] % (Auto) 10.8 H, Eos % (Auto) 1.8, Baso % (Auto) 0.2, Absolute Neuts (auto) 13.5 H, Absolute Lymphs (auto) 1.07, Nucleated RBC % 0, Diff Path Review May foll, Anisocytosis 1+ 09/15/22 04:55: Sodium 139, Potassium 3.6, Chloride 106, Carbon Dioxide 21.0, Anion Gap 12, BUN 42 H, Creatinine 1.52 H, Estim Creat Clear Calc 19.68, Est GFR (MDRD) Af Amer 42 L, Est GFR (MDRD) Non-Af 34 L, BUN/Creatinine Ratio 27.6 H, Glucose 294 H, Calcium 9.1, Troponin I High Sens 177 H* 09/15/22 04:55: Lactic Acid 1.4 09/15/22 04:55: B-Natriuretic Peptide 945.5 H Assessment & Plan Assessment/Plan (1) Acute exacerbation of CHF (congestive heart failure): PLAN: Plan The patient is an 86 y/o F w/ PMHx: CAD s/p PCI, Valvular Heart Disesaes, Combined Systolic/Diastolic CHF/Ischemic Cardiomyopathy, CKD stage III, HTN, HLD, Chronic anemia, PAF, Diabetes mellitus type II who presents to the [facility] ED on 09/15/22 with history of progressive ongoing dyspnea x1 week reportedly 83% at home however this improved with placement on BiPAP on route with concurrent cough with no recent fevers or chills however given severity prompted ED evaluation. #1. Acute Hypoxic Respiratory Failure secondary to Acute Decompensated Combined Systolic/Diastolic CHF/Ischemic Cardiomyopathy with associated acute NSTEMI: Patient administered IV lasix in the ED, will admit to PCU and continue BIPAP placement, maintain on cardiac telemetry obtain, cardiac enzyme series, obtain serial EKGs, continue IV lasix diuresis, monitor I/Os, maintain on intake restriction, continue medical therapy, obtain TSH and magnesium level. Most re cent ECHO noted 06/19/2022 and given less than 6 months; however, given NSTEMI associated will repeat ECHO. PRN morphine to decrease afterload, continue oxygen supplementation, if necessary will position w/ upright position with legs off bed to decrease preload. In the ED patient ministered 40 mg IV Lasix x1. Following continued BiPAP placement patient feels improved. Given NSTEMI will request Cardiology involvement. #2. Valvular heart disease: Status post prior TAVR, 06/19/2022 echocardiogram with moderate concentric LVH, LV ejection fraction 60%, stage II diastolic dysfunction, severely enlarged RA, moderately enlarged RA, moderate MV stenosis, mild MVI, mild to moderate TVI, severe pulmonary hypertension, bioprosthetic AV. #3. CAD: Status post prior PCI, will continue Eliquis, asa, plavix, metoprolol, losartan regimen, not on statin therapy. #4. PAF: We will continue patient home metoprolol and apixaban regimen. #5. Chronic Kidney Disease Stage III, unclear subtype: Admission BUN/Cr 42/1.52, baseline renal function 1.3-1.6, repeat BMP in AM. #6. Chronic normocytic anemia: Admission hemoglobin 9.6, baseline more recently primarily 8-9, will continue to trend. #7. Diabetes mellitus type II: Hold oral home regimen, ADA diet, accu checks w/ ISS. #8. Hypertension: Continue home regimen including metoprolol, losartan, amlodipine, IV Lasix as noted, PRN hydralazine. #9. Hyperlipidemia: Not on statin therapy, FLP in AM. Adding low dose statin. #10. Obesity: Weight loss and lifestyle changes encouraged. #11. DVT prophylaxis: SCDs, continue patient on apixaban regimen. #12. CODE status: Patient does not have healthcare power of criminal attorney nor living will in place. Patient's is present for discussions. Discussed CODE status at length including difference between FULL code, DNR-CCA and DNR-CC status. Following discussions about the differences in these status, requested Full Code status. Advanced Care Planning Face to Face Time: 16 minutes. Admission Evaluation Time spent evaluating chart, patient history, patient evaluation, care planning and discussion with specialists: 75 minutes. Charges/Coding Visit Charges Inpatient E&M: 33962 Init Hosp L3 Procedures Hospitalists Procedures: 08732 Advncd Care Plan 30 Min
[2022-09-15 06:54] LABS: Magnesium 2.3 mg/dL (1.6-2.6)
[2022-09-15 07:48] LABS: Procalcitonin 1.56 ng/mL (0.00-0.09)
--- NOTE | 2022-09-15 07:58 | ECHOD_ITS ---
Version 2 Reason For Study: NSTEMI Procedure This was a 2D Doppler, Color Flow transthoracic echocardiogram. Exam performed portable in patient room. Left Ventricle Normal LV size. Moderate concentric left ventricular hypertrophy. Left ventricular systolic function is normal. The estimated ejection fraction is 65 %. Stage 2 diastolic dysfunction. No regional wall motion abnormalities noted. Right Ventricle Normal RV size. Normal systolic function. Atria The left atrium is mildly enlarged. Normal right atrium. Mitral Valve There is moderate mitral annular calcification. Mild-Moderate (1-2+) eccentric mitral valve insufficiency. Tricuspid Valve Normal tricuspid valve. Moderately severe (3+) tricuspid valve insufficiency. Pulmonary artery systolic pressure is 84 mmHg. Severe pulmonary hypertension. Aortic Valve Bioprosthetic aortic valve functioning normally. Pulmonic Valve Normal pulmonic valve. Great Vessels Normal aortic root. The pulmonary is not well visualized. Normal inferior vena cava. Pericardium/Pleural No pericardial effusion. MMode/2D Measurements & Calculations LVIDd: 4.5 cm IVSd: 1.3 cm LVOT diam: 1.8 cm LVIDs: 2.3 cm LVPWd: 1.4 cm LVOT area: 2.6 cm2 RVDd: 3.1 cm FS: 49.8 % Ao root diam: 3.0 cm LAV(MOD-bp): 73.0 ml LA A4 area: 24.4 cm2 LA dimension: 4.3 cm LAV(MOD-bp) Indexed: 42.9 ml/m2 LAV(MOD-sp2): 62.4 ml LAV(MOD-sp4): 80.4 ml RA A4 area: 17.0 cm2 Time Measurements MV dec time: 0.21 sec Doppler Measurements & Calculations MV E max justin: 216.3 cm/sec Lat Peak E' Justin: 8.5 cm/sec Med Peak E' Justin: 9.6 cm/sec MV A max justin: 151.0 cm/sec E/E' lat: 25.5 E/E' med: 22.5 MV E/A: 1.4 MV V2 max: 266.4 cm/sec MV P1/2t max justin: 267.5 cm/sec Ao V2 max: 296.0 cm/sec MV max P.4 mmHg MV P1/2t: 67.6 msec Ao max P.0 mmHg MV V2 mean: 153.9 cm/sec MV dec slope: 1159 cm/sec2 Ao V2 mean: 208.9 cm/sec MV mean P.3 mmHg Ao mean P.6 mmHg MV V2 VTI: 53.8 cm MVA(P1/2t): 3.3 cm2 Ao V2 VTI: 58.6 cm MVA(VTI): 1.5 cm2 AV (velocity ratio): 0.52 ELLIOT(I,D): 1.3 cm2 ELLIOT(V,D): 1.3 cm2 AI max justin: 407.8 cm/sec LV V1 max: 145.7 cm/sec MR max justin: 610.6 cm/sec AI max P.6 mmHg LV V1 max P.5 mmHg MR max P.1 mmHg LV V1 mean P.3 mmHg MR mean justin: 440.7 cm/sec AI dec slope: 480.0 cm/sec2 LV V1 mean: 109.5 cm/sec MR mean P.7 mmHg AI P1/2t: 248.9 msec LV V1 VTI: 30.6 cm MR VTI: 151.5 cm SV(LVOT): 78.4 ml PA V2 max: 95.6 cm/sec TR max justin: 450.5 cm/sec TR max P.2 mmHg ECHO/Echo Complete Interpretation Summary Normal LV size. Moderate concentric left ventricular hypertrophy. Left ventricular systolic function is normal. The estimated ejection fraction is 65 %. The left atrium is mildly enlarged. There is moderate mitral annular calcification. Pulmonary artery systolic pressure is 84 mmHg. Severe pulmonary hypertension. Stage 2 diastolic dysfunction. The global longitudinal strain is normal. The global longitudinal strain = -18 % (normal). Ordering Physician: Breanna Guerra Performed By: Blayne Roberts RCS
[2022-09-15 08:39] LABS: Troponin-I HS 579 pg/mL (3.0-54.0)
[2022-09-15 08:40] LABS: Bedside Glucose 304 mg/dL (74-106)
[2022-09-15] MEDS: Insulin Lispro 100 UNIT/ML INSULN.PEN SC ×3 (09:43→16:23)
[2022-09-15] MEDS: Metoprolol(XL)Succ 100 MG Tablet PO (09:43)
[2022-09-15] MEDS: Losartan Potassium 50 MG Tablet PO ×2 (09:43→21:44)
[2022-09-15] MEDS: Potassium Chloride Oral Tablet 20 MEQ PO ×2 (09:44→16:24)
[2022-09-15] MEDS: Aspirin 81 MG TAB.CHEW PO (09:44)
[2022-09-15] MEDS: Clopidogrel Bisulfate 75 MG Tablet PO (09:44)
[2022-09-15] MEDS: APIXABAN 2.5 MG TABLET (WCH) PO ×2 (09:44→21:44)
[2022-09-15 10:33] LABS: Troponin-I HS 577 pg/mL (3.0-54.0)
[2022-09-15] MEDS: Furosemide 20 MG/2 ML VIAL IV (10:41)
--- NOTE | 2022-09-15 10:50 | CON.PCM.CA_ITS ---
Assessment & Plan Assessment/Plan (1) Acute exacerbation of CHF (congestive heart failure): PLAN: She appears to have an acute exacerbation of congestive heart failure. The etiology of the above is not entirely clear at this particular time. I suspect some of this may be from her valvular heart disease I would recommend that we continue to diurese her. She may need to have her coronaries reevaluated in a.m. Depending on the findings further recommendations will be made. (2) Non-ST elevation CO (NSTEMI): PLAN: She does have evidence of a non-ST elevation myocardial infarction. At this time she is pain-free my plan is to continue the current medical therapy and reevaluate her coronary anatomy. Depending on the findings further recommendations will be made (3) History of transcatheter aortic valve replacement (TAVR): PLAN: Patient has a history of TAVR. I will recommend that we reevaluate the above with an echocardiogram. She did have an echo-free space at the sinus of Valsalva if you remember at the last evaluation. (4) Hyperlipidemia: PLAN: We will continue with aggressive risk factor modification. (5) Nonrheumatic mitral (valve) insufficiency: PLAN: She does have evidence of mitral annular calcification and 2+ mitral regurgitation. We will continue to diurese her as well as maximizing guideline directed medical therapy. (6) Paroxysmal atrial fibrillation: PLAN: She has a history of paroxysmal atrial fibrillation. We will need to reevaluate the above. She will remain on Eliquis as well as the beta-margo. HPI Consult Data Date of Consult: 09/15/22 HPI Narrative HPI Narrative: PHUC AIKEN, is a 86 F who presents with progressive shortness of breath over the last few weeks. This time she was noted to be getting more markedly short of breath and presented to the emergency room. She has a history of diabetes, hypertension, paroxysmal atrial fibrillation in 2018, hyperlipidemia, aortic stenosis status post TAVR in May 2017 receiving a number 23 mm Reeder CP and S3 aortic valve at the [facility], stage III kidney disease and mild coronary artery disease by catheterization in November 2018.? She presented to [facility] in September 2021 for chest pain.? Her cardiac enzyme was noted be elevated.? Her echocardiogram showed normal LV size and an EF of 45%.? Heart catheterization was significant for 80% stenosis along the LAD as well as 90% stenosis in the first diagonal.? Circumflex was small with diffuse mild disease and RCA was a large dominant vessel with mild diffuse disease.? She underwent PCI to mid LAD, but stent was not able to be placed. She had been seen in the office and had complained of some chest shortness of breath. She however denied any chest pain. On this visit she was noted to have mildly elevated troponin. No significant EKG changes were noted. She denies any paroxysmal nocturnal dyspnea or pedal edema. [facility] Medical History (Updated 09/15/22 @ 11:[address] Alpesh López MD) Aortic sclerosis Atherosclerosis of coronary artery of [place] heart without angina pectoris Bilateral carotid artery stenosis Chronic combined systolic and diastolic CHF (congestive heart failure) Chronic kidney disease (CKD) Chronic kidney disease, stage 3 Chronic venous insufficiency Diabetes mellitus Diastolic CHF History of non-ST elevation myocardial infarction (NSTEMI) (09/17/21) History of transcatheter aortic valve replacement (TAVR) (05/18/17) Hyperlipidemia Hypertension associated with diabetes Hypoxia Ischemic cardiomyopathy Mitral annular calcification Nonrheumatic aortic (valve) stenosis Nonrheumatic mitral (valve) insufficiency Normocytic anemia Paroxysmal atrial fibrillation Renal artery stenosis Home Medications aspirin 81 mg chewable tablet 81 mg PO DAILY@0800 BLOOD THINNER 04/21/17 [History Last Taken 06/18/22] amlodipine 10 mg tablet 10 mg PO QHS BP 04/28/17 [History Last Taken 06/18/22] apixaban 2.5 mg tablet (Eliquis) 2.5 mg PO BID BLOOD THINNER 09/07/19 [History Last Taken 06/18/22] glimepiride 1 mg tablet 1 mg PO QHS SUGAR 06/19/22 [History Last Taken 06/18/22] glimepiride 2 mg tablet 2 mg PO DAILY SUGAR 06/19/22 [History Last Taken 10/08] losartan 50 mg tablet 50 mg PO BID BP 06/19/22 [History Last Taken 06/18/22] metoprolol succinate 25 mg tablet,extended release 24 hr 25 mg PO QHS hr 06/19/22 [History Last Taken 06/18/22] furosemide 40 mg tablet 40 mg PO BIDCM FLUID #60 tabs 07/10/22 [Rx Last Taken 06/18/22] potassium chloride 20 mEq tablet,extended release 20 meq PO DAILY #30 tabs 07/10/22 [Rx Last Taken Unknown] clopidogrel 75 mg tablet 75 mg PO DAILY 07/30/22 [History Last Taken Unknown] metoprolol succinate 100 mg tablet,extended release 24 hr 100 mg PO DAILY 07/30/22 [History Last Taken Unknown] Allergy/AdvReac Type Severity Reaction Status Date / Time No Known Allergies Allergy Verified 09/15/22 04:50 Family History Sister Asthma Breast cancer Hypertension Hyperlipidemia Melanoma Father , From old age per patient. Denies specific medical problems. No problems noted. Mother , From old age per patient. Denies specific medical problems. No problems noted. Surgical History History of appendectomy History of coronary angioplasty (09/18/21) History of left heart catheterization (04/2017) Social History household members: spouse Smoking Status: Never smoker alcohol intake: never substance use type: does not use caffeine: Yes Type: coffee Number of servings: 1 ROS Constitutional Constitutional: Denies fever(s) or weight loss Eyes Eyes: Reports systems reviewed and no addt'l complaints, except as documented ENT HEENT: Reports systems reviewed and no addt'l complaints, except as documented Cardiovascular Cardiovascular: Reports dyspnea at rest and dyspnea on exertion; Denies chest pain at rest, chest pain with activity, edema or palpitations Respiratory/Chest Respiratory/Chest: Reports dyspnea on exertion, shortness of breath at rest and shortness of breath with exertion; Denies productive cough Gastrointestinal Gastrointestinal: Denies change in bowel habits, nausea, vomiting or weight changes Genitourinary Genitourinary: Denies difficulty urinating Musculoskeletal Musculoskeletal: Denies joint stiffness or muscle weakness Integumentary Integumentary: Denies lesions Neurologic Neurologic: Denies dizziness or syncope Psychiatric Psychiatric: Denies anxiety Endocrine Endocrinology: Denies excessive sweating or fatigue Hematologic/Lymphatic Hematologic/Lymphatic: Denies anemia Allergic/Immunologic Allergic/Immunologic: Denies seasonal rhinorrhea Physical Exam Const alert, oriented x3 and no apparent distress General Appearance: cooperative HEENT hearing grossly normal bilaterally Head and Scalp: atraumatic Eyes EOMs intact bilaterally Neck General: normal visual inspection Chest inspection of chest normal and palpation of chest normal Resp normal respiratory effort Auscultation: diminished lung sounds Cardio regular rate, regular rhythm, S1 normal heart sound and S2 normal heart sound Jugular Venous Distention: JVD Heart Sounds: murmur systolic GI normal to inspection, nondistended, normoactive bowel sounds Extremity normal capillary refill and no pedal edema Peripheral Pulses: Yes pulses 2+ throughout and femoral pulses present Skin no rashes or lesions noted Neuro oriented x3 and CN's II-XII intact bilaterally Psych Appearance: grossly normal and appropriate Risk Stratification Risk Stratification Applicable: Yes Age >/= 65: Yes >/= 3 CAD Risk Factors (HTN, HLD, DM, family hx of CAD, or current smoker): Yes Aspirin Use in the Past 7 Days: Yes Severe Angina (>/= episodes in 24 hours): No EKG ST Changes >/= 0.5mm: No Positive Cardiac Marker: Yes JORDEN Risk Stratification Score: 4 JORDEN % Risk: 20% Risk Objective Data Vital Signs: Vital Signs Temp Pulse Resp BP Pulse Ox O2 Del Method FiO2 98 F 84 25 H 122/59 H 95 Bi-pap 35 09/15/22 07:20 09/15/22 09:43 09/15/22 07:20 09/15/22 07:20 09/15/22 07:20 09/15/22 07:20 09/15/22 06:00 Oxygen Delivery Method Bi-pap Weight: 156 lb 15.506 oz Body Mass Index (BMI) 29.6 Lab / Micro Data Result Diagrams: 09/15/22 04:55 09/15/22 04:55 Labs: Laboratory Results - last 24 hr 09/15/22 04:55: WBC 16.8 H, RBC 3.57 L, Hgb 9.6 L, Hct 30.0 L, MCV 84.0, MCH 26.9 L, MCHC 32.0, RDW Std Deviation 46.8 H, RDW Coeff of Jesi 15.4 H, Plt Count 338, MPV 9.3, Immature Gran % (Auto) 0.500, Neut % (Auto) 80.3 H, Lymph % (Auto) 6.4 L, [place] % (Auto) 10.8 H, Eos % (Auto) 1.8, Baso % (Auto) 0.2, Absolute Neuts (auto) 13.5 H, Absolute Lymphs (auto) 1.07, Nucleated RBC % 0, Diff Path Review May foll, Anisocytosis 1+ 09/15/22 04:55: Sodium 139, Potassium 3.6, Chloride 106, Carbon Dioxide 21.0, Anion Gap 12, BUN 42 H, Creatinine 1.52 H, Estim Creat Clear Calc 19.68, Est GFR (MDRD) Af Amer 42 L, Est GFR (MDRD) Non-Af 34 L, BUN/Creatinine Ratio 27.6 H, Glucose 294 H, Calcium 9.1, Troponin I High Sens 177 H* 09/15/22 04:55: Lactic Acid 1.4 09/15/22 04:55: B-Natriuretic Peptide 945.5 H 09/15/22 06:35: Magnesium 2.3 09/15/22 06:35: Procalcitonin 1.56 H 09/15/22 08:16: Troponin I High Sens 579 H* 09/15/22 08:18: POC Glucose 304 H 09/15/22 10:03: Troponin I High Sens 577 H* Micro: Microbiology 09/15/22 05:08 Mucosa - Nose Respiratory Panel (PCR) - Final Cardiology Labs/Tests 09/15/22 04:55: WBC 16.8 H, RBC 3.57 L, Hgb 9.6 L, Hct 30.0 L, MCV 84.0, MCH 26.9 L, MCHC 32.0, Plt Count 338, MPV 9.3, Immature Gran % (Auto) 0.500, Neut % (Auto) 80.3 H, Lymph % (Auto) 6.4 L, [place] % (Auto) 10.8 H, Eos % (Auto) 1.8, Baso % (Auto) 0.2, Absolute Neuts (auto) 13.5 H, Nucleated RBC % 0 09/15/22 04:55: Sodium 139, Potassium 3.6, Chloride 106, Carbon Dioxide 21.0, Anion Gap 12, BUN 42 H, Creatinine 1.52 H, Est GFR (MDRD) Af Amer 42 L, Est GFR (MDRD) Non-Af 34 L, BUN/Creatinine Ratio 27.6 H, Glucose 294 H, Calcium 9.1 09/15/22 04:55: Lactic Acid 1.4 09/15/22 04:55: B-Natriuretic Peptide 945.5 H 09/15/22 06:35: Magnesium 2.3 Rhythm: EKG: ECHO: Stress Test: Cardiac Cath: PCI: CT Surgery: Holter monitor: EPS: PPM: CXR: Chest CT Scan: Radiography Diagnostic Testing: Radiology Impression Chest X-Ray 09/15/22 05:18 IMPRESSION: Worsening asymmetric vascular congestion versus bilateral pneumonia. Small bilateral pleural effusions improved. Old granulomatous disease. Electronically Signed: Francisco Singer MD at 6:21 EST Reading Location ID and State: [id number] / , Service support ,
[2022-09-15 11:41] LABS: Bedside Glucose 359 mg/dL (74-106)
--- NOTE | 2022-09-15 12:50 | CASEMGMT ---
Addendum entered by Won Pagan 09/15/22 14:07: Dr Hernandez made aware pt interested in talking w/Palliative liaison. Order received. [facility] Palliative notified of referral via e-mail. Original Note: BROWN SUMMERS Assessment: BROWN CM to room to meet with patient for initial transition planning/care coordination assessment. BROWN SUMMERS introduced self and role at [facility]. Pt voices understanding and consents to assessment at this time. Pt is resting in bed. She is alert and oriented and answers all questions appropriately. Care providers, pharmacy, and demographics verified/updated at this time. PCP: No PCP currently. Pt was seeing Dr Saleh, but she states he is on medical leave. Pt provided w/list of PCP's. She states she will review it and would be grateful for assistance w/getting an appt to get established as a new pt. CM to f/u with pt re: same. Specialists: Pt has been going to a advertising campaign manager @ [facility], but states would like to switch to [facility] Preferred Pharmacy: [facility] Retail Insurance: MCR A/B, [employer] Prescription Benefit: yes Living Will/HPOA: Patient states she does not have a LW, but states does have a POA, who is her , Martínez. LNOK: Martínez. 3 sons: Chalo López Michael Living Arrangements: Pt lives with in a raised-ranch home with 10-12 steps to enter the home. Patient states independent with ADLs prior to hospitalization. and pt share home mgmt tasks. Transportation: Patient drives self and denies transportation concerns. also drives. DME: Has a functioning glucometer with testing supplies and rails/grab bars. Pt has a pulse ox and Home O2 thru [employer]. She is not sure what her liter flow is supposed to be at, as she states her takes care of that. She has a concentrator and portable O2 tanks and her can bring in for her to go home on @ d/c. Also has a cane and walker available, but does not use. HHC/SNF: Pt states she has been to a SNF in the past, but does not remember where. She has not had HHC in the past and is declining HHC at this time. She was discharged home w/OP therapy @ [facility] in Dec, 2022, but states her knee flared up when she went, so she is not sure if she wants to go back. She is interested in getting a script for OP therapy @ d/c and then will decide once she returns home if she wants to go or not. Pt states she is active w/[facility]. She would like to resume this. Discussed Palliative care and questions answered. She is interested in a referral to discuss thins further w/the liaison. Pt wishes to return home and states has no concerns with going home at time of discharge. CM to follow for any increase in home oxygen needs and any further discharge planning/needs. Pt voices no further concerns/needs at this time. Advised pt and to ask for CM if any further questions/concerns/needs arise. They voice understanding. Plan: Home w/spousal support and discharge plans in place and resumption of CCN. Pt would like script for OP therapy. CM to follow for any increase in home O2 @ discharge and to assist pt w/getting appt w/new PCP. Possible Palliative referral. CM to notify of pt's interest in referral. Gypsy PATELN RN CM
[2022-09-15 14:05] LABS: Pathologist Review Reviewed
--- NOTE | 2022-09-15 17:20 | PCM.HOSP.N ---
Hospitalist Note Patient was seen and examined today, I talked with cardiology about her care. Patient states she has oxygen at home but only uses it when needed, she cannot tell me what her setting as, she cannot tell me who wrote her prescription for the oxygen. She states her takes care of everything. Cardiology had briefly considered catheterizing the patient tomorrow but has decided against it due to multiple factors including her kidney function, age, and previous heart catheterization. For now, she will continue on IV Lasix be reevaluated tomorrow.
[2022-09-15 17:25] LABS: Bedside Glucose 310 mg/dL (74-106)
--- NOTE | 2022-09-15 19:50 | PN.HOSP_ITS ---
Hospitalist Note Patient with worsening respiratory status. PCU had discussed patient with daytime hospitalist and ABG currently ordered and pending. Increased RR and acute respiratory failure recurrence. Had been transitioned from 5L NC from BIPAP earlier today following her admission. Will resume BIPAP and given lability will transition to the ICU and request dry chain worker consultation. Patient remains on lasix IV regimen.
--- NOTE | 2022-09-15 20:00 | RAD_ITS ---
STUDY: XR Chest 1 View 09/15/2022 7:54 PM REASON FOR EXAM: Female, 86 years old. CHEST PAIN dyspnea COMPARISON: Study done earlier today. TECHNIQUE: XR Chest 1 View FINDINGS: There are bilateral pleural effusions. There are bilateral infiltrates. Normal heart size. Normal mediastinum. Normal noble. Prominent appearing increased interstitial lung markings. Normal visualized pulmonary arteries. There is atherosclerotic calcification of the aortic arch with tortuosity. There are diffuse degenerative changes of the visualized thoracic spine. There is degenerative osteoarthritis of the bilateral shoulders. There is no demonstrated abnormality of the visualized soft tissue structures of the upper abdomen. RAD/Chest 1 View (Portable) IMPRESSION: There has been no change in the appearance of the chest since the prior study. Electronically Signed: Froylan Doyle MD at 20:11 EST ,
[2022-09-15 20:06] LABS: Allen Test Positive; Base Excess -4 mmol/L (-2 to +2); Bicarbonate 20.3 mmol/L (22-26); Blood Gas Specimen Type ART; FI02 50; O2 Delivery Device BiPAP; PO2 109 mmHG (75-100); SITE R Radial; SO2 99 % (95-99); Total Carbon Dioxide 21 mmol/L; pH 7.45 (7.35-7.45)
--- NOTE | 2022-09-15 20:28 | NURSING ---
This RN was alerted by REJECTOR that pt was having a panic attack and having trouble breathing. Pt was found to be on bipap with respiratory therapy in room. Pt stated she got up to go to the bathroom and hasnt recovered. Purewick placed. Pts respirations were in 40s-50s, pt very anxious and wanting to see . Unscheduled dose of lasix given. Dr oneill came to see patient and put orders to transfer to ICU.
[2022-09-15] MEDS: Metoprolol(XL)Succ 25 MG Tablet PO (21:44)
[2022-09-15] MEDS: amLODIPine 10 MG Tablet PO (21:44)
[2022-09-15] MEDS: Atorvastatin Calcium 10 MG Tablet PO (21:44)
[2022-09-16] VITALS (25 sets, daily range): BP systolic 101–163; BP diastolic 51–88; PULSE 79–113; RESP 12–40; TEMP 36.5–36.9; O2SAT 85–98
[2022-09-16 00:51] LABS: Bedside Glucose 111 mg/dL (74-106)
[2022-09-16 04:01] LABS: Absolute Lymphocyte Count 1.07 X10^3/uL (0.83-4.51); Absolute Neutrophil Count 8.9 X10^3/uL (2.0-7.7); Basophil# 0.02 X10^3/uL; Basophil% 0.2 % (0-1); Eosinophil# 0.05 X10^3/uL; Eosinophils% 0.4 % (0-5); Hematocrit 26.2 % (37-47); Hemoglobin 8.3 g/dL (12.0-15.0); Lymphocyte # 1.07 X10^3/ul (0.83-4.51); Lymphocyte % 9.5 % (19-41); Mean Corp Hgb Conc 31.7 g/dL (32-36); Mean Corpuscular Hgb 26.6 pg (27.0-32.0); Mean Platelet Vol. 9.4 fl (6.2-12.0); Monocyte# 1.14 X10^3/uL; Monocyte% 10.1 % (0-10); NRBC Flagged by Analyzer 0 % (0-5); Neutrophil # 8.91 X10^3/uL (2.7-7.7); Neutrophil % 79.4 % (47-70); Platelet Count 279 K/mm3 (150-450); RBC Distribution Width CV 15.8 % (11.6-14.6); RBC Distribution Width SD 48.7 fl (35.1-43.9); Red Blood Count 3.12 M/mm3 (4.2-5.4); White Blood Count 11.2 K/mm3 (4.4-11.0)
[2022-09-16 04:24] LABS: ALB/GLOB Ratio 0.5 RATIO (0.9-2.4); AST(SGOT) 17 U/L (15-37); Alanine Aminotransfer ALT/SGPT 19 U/L (13-56); Albumin, Serum 2.2 g/dL (3.2-5.0); Alkaline Phosphatase 86 U/L (45-117); Anion Gap 10 (5-15); BUN 45 mg/dL (7-18); BUN/Creat Ratio 27.8 RATIO (10-20); Calcium,Total 8.8 mg/dL (8.5-10.1); Chloride 107 mmol/L (98-107); Cholesterol 133 mg/dL (200); Creatinine, Serum 1.62 mg/dL (0.55-1.02); EST Glomerular Filtration Rate 32 mL/min (>60); Est Glom Filt Rate - Afr Amer 39 mL/min (>60); Estimated Creatinine Clearance 18.46 ml/min; Globulin 4.3 g/dL (2.2-4.2); Glucose 161 mg/dL (74-106); High Density Lipoprotein 58 mg/dL; Potassium 3.9 mmol/L (3.5-5.1); Protein, Total 6.5 g/dL (6.4-8.2); Sodium Level 140 mmol/L (136-145); Thyroid Stim Hormone (TSH) 0.69 uIU/mL (0.358-3.74); Triglycerides 60 mg/dL; Very Low Density Lipoprotein 12 mg/dL (5-40)
[2022-09-16] MEDS: Insulin Lispro 100 UNIT/ML INSULN.PEN SC ×4 (07:57→21:24)
[2022-09-16] MEDS: Potassium Chloride Oral Tablet 20 MEQ PO (07:58)
[2022-09-16] MEDS: Aspirin 81 MG TAB.CHEW PO (07:58)
[2022-09-16 08:20] LABS: Bedside Glucose 165 mg/dL (74-106)
--- NOTE | 2022-09-16 08:38 | PCM.PN.CARD ---
Subjective Subjective Patient seen and evaluated. Events of yesterday noted. At this moment appears to be quite comfortable on 3 L. Objective Data Vital Signs: Vital Signs Temp Pulse Resp BP Pulse Ox O2 Del Method O2 Flow Rate 98 F 79 21 H 133/66 H 92 Nasal Cannula 2 09/16/22 06:00 09/16/22 08:00 09/16/22 08:00 09/16/22 08:00 09/16/22 08:00 09/16/22 08:00 09/16/22 08:00 FiO2 30 09/15/22 21:30 Oxygen Flow Rate (L/min) 2 Oxygen Delivery Method Nasal Cannula Weight: 143 lb 8.335 oz Body Mass Index (BMI) 27.8 Intake & Output: Intake and Output for Last 24 Hours 09/14/22 09/15/22 09/16/22 23:59 23:59 23:59 Output Total 500 / 500 550 / 550 Balance -500 / -500 -550 / -550 Lab / Micro Data Result Diagrams: 09/16/22 03:55 09/16/22 03:55 Labs: Laboratory Results - last 24 hr 09/15/22 04:55: Diff Path Review Reviewed 09/15/22 08:16: Troponin I High Sens 579 H* 09/15/22 08:18: POC Glucose 304 H 09/15/22 10:03: Troponin I High Sens 577 H* 09/15/22 11:14: POC Glucose 359 H 09/15/22 16:22: POC Glucose 310 H 09/15/22 21:42: POC Glucose 111 H 09/16/22 03:55: WBC 11.2 H, RBC 3.12 L, Hgb 8.3 L, Hct 26.2 L, MCV 84.0, MCH 26.6 L, MCHC 31.7 L, RDW Std Deviation 48.7 H, RDW Coeff of Jesi 15.8 H, Plt Count 279, MPV 9.4, Immature Gran % (Auto) 0.400, Neut % (Auto) 79.4 H, Lymph % (Auto) 9.5 L, [place] % (Auto) 10.1 H, Eos % (Auto) 0.4, Baso % (Auto) 0.2, Absolute Neuts (auto) 8.9 H, Absolute Lymphs (auto) 1.07, Nucleated RBC % 0 09/16/22 03:55: Sodium 140, Potassium 3.9, Chloride 107, Carbon Dioxide 23.0, Anion Gap 10, BUN 45 H, Creatinine 1.62 H, Estim Creat Clear Calc 18.46, Est GFR (MDRD) Af Amer 39 L, Est GFR (MDRD) Non-Af 32 L, BUN/Creatinine Ratio 27.8 H, Glucose 161 H, Calcium 8.8, Total Bilirubin 0.80, AST 17, ALT 19, Alkaline Phosphatase 86, Total Protein 6.5, Albumin 2.2 L, Globulin 4.3 H, Albumin/Globulin Ratio 0.5 L, Triglycerides 60, Cholesterol 133, LDL Cholesterol 63, VLDL Cholesterol 12, HDL Cholesterol 58, TSH 0.69 09/16/22 07:57: POC Glucose 165 H Micro: Microbiology 09/15/22 05:08 Mucosa - Nose Respiratory Panel (PCR) - Final ABG Data ABG results: ABG 09/15/22 19:59 Specimen Type ART Sample Site R Radial pH 7.45 Bicarbonate Actual 20.3 L Total CO2 21 Base Excess -4 L O2 Saturation 99 O2 % 50 ABG pCO2 29.0 L ABG pO2 109 H Thad Test Positive O2 Delivery Device BiPAP Clinical Comments 15*10. 50fio2 Cardiology Labs/Tests 09/15/22 19:59: pH 7.45, Bicarbonate Actual 20.3 L, Base Excess -4 L, O2 Saturation 99, ABG pCO2 29.0 L, ABG pO2 109 H, Thad Test Positive 09/16/22 03:55: WBC 11.2 H, RBC 3.12 L, Hgb 8.3 L, Hct 26.2 L, MCV 84.0, MCH 26.6 L, MCHC 31.7 L, Plt Count 279, MPV 9.4, Immature Gran % (Auto) 0.400, Neut % (Auto) 79.4 H, Lymph % (Auto) 9.5 L, [place] % (Auto) 10.1 H, Eos % (Auto) 0.4, Baso % (Auto) 0.2, Absolute Neuts (auto) 8.9 H, Nucleated RBC % 0 09/16/22 03:55: Sodium 140, Potassium 3.9, Chloride 107, Carbon Dioxide 23.0, Anion Gap 10, BUN 45 H, Creatinine 1.62 H, Est GFR (MDRD) Af Amer 39 L, Est GFR (MDRD) Non-Af 32 L, BUN/Creatinine Ratio 27.8 H, Glucose 161 H, Calcium 8.8, Total Bilirubin 0.80, Triglycerides 60, Cholesterol 133, LDL Cholesterol 63, VLDL Cholesterol 12, HDL Cholesterol 58 Rhythm: EKG: ECHO: Stress Test: Cardiac Cath: PCI: CT Surgery: Holter monitor: EPS: PPM: CXR: Chest CT Scan: Radiography Diagnostic Testing: Radiology Impression Echocardiogram 09/15/22 07:58 Interpretation Summary Normal LV size. Moderate concentric left ventricular hypertrophy. Left ventricular systolic function is normal. The estimated ejection fraction is 65 %. The left atrium is mildly enlarged. There is moderate mitral annular calcification. Pulmonary artery systolic pressure is 84 mmHg. Severe pulmonary hypertension. Stage 2 diastolic dysfunction. The global longitudinal strain is normal. The global longitudinal strain = -18 % (normal). Ordering Physician: Breanna Guerra Performed By: Blayne Roberts RCS Chest X-Ray 09/15/22 20:00 IMPRESSION: There has been no change in the appearance of the chest since the prior study. Electronically Signed: Froylan Doyle MD at 20:11 EST Reading Location ID and State: [facility] / [place] , Service support , Physical Exam Const alert, oriented x3 and no apparent distress General Appearance: cooperative HEENT hearing grossly normal bilaterally Head and Scalp: atraumatic Eyes EOMs intact bilaterally Neck General: normal visual inspection Chest inspection of chest normal and palpation of chest normal Resp normal respiratory effort Auscultation: diminished lung sounds Cardio regular rate, regular rhythm, S1 normal heart sound and S2 normal heart sound Jugular Venous Distention: JVD Heart Sounds: murmur systolic GI normal to inspection, nondistended, normoactive bowel sounds Extremity normal capillary refill and no pedal edema Peripheral Pulses: Yes pulses 2+ throughout and femoral pulses present Skin no rashes or lesions noted Neuro oriented x3 and CN's II-XII intact bilaterally Psych Appearance: grossly normal and appropriate Assessment & Plan Assessment/Plan (1) Acute exacerbation of CHF (congestive heart failure): PLAN: She appears to have an acute exacerbation of congestive heart failure. The etiology of the above is not entirely clear at this particular time. I suspect some of this may be from her valvular heart disease I would recommend that we continue to diurese her. I looked at her last cardiac catheterization and at this time I do not think that we need to reevaluate her coronaries. Her LAD was a small vessel and was suboptimally intervened on. Her echocardiogram also does not demonstrate any wall motion abnormalities thus I do not think that she has occluded this vessel. (2) Non-ST elevation AR (NSTEMI): PLAN: She does have evidence of a non-ST elevation myocardial infarction. At this time she is pain-free my plan is to continue the current medical therapy (3) History of transcatheter aortic valve replacement (TAVR): PLAN: Patient has a history of TAVR. The echocardiogram demonstrates normally functioning bioprosthetic aortic valve. (4) Hyperlipidemia: PLAN: We will continue with aggressive risk factor modification. (5) Nonrheumatic mitral (valve) insufficiency: PLAN: She does have evidence of mitral annular calcification and 2+ mitral regurgitation. We will continue to diurese her as well as maximizing guideline directed medical therapy. (6) Paroxysmal atrial fibrillation: PLAN: She has a history of paroxysmal atrial fibrillation. We will need to reevaluate the above. She will remain on Eliquis as well as the beta-margo. (7) Pulmonary hypertension: PLAN: She does have severe pulmonary hypertension. This is likely from her valvular heart disease as well as diastolic dysfunction. At this time I would recommend that we continue her on diuresis probably adding spironolactone to her regimen. Pulmonary evaluation may be helpful as well. Thank you for allowing me to participate in the care of your patient. Please don't hesitate to call if any issues arise.
--- NOTE | 2022-09-16 09:39 | CON.PCM.CC_ITS ---
Assessment & Plan Assessment/Plan (1) Acute hypoxemic respiratory failure: PLAN: Plan RECOMMENDATIONS: 1. Continue to wean supplemental oxygen to maintain saturations at or above 90%. 2. Continue diuresis as tolerated by hemodynamics and renal function. 3. Agree with monitoring clinically. No antibiotics at this time 4. Encourage incentive spirometer use and mobilize patient as tolerated. 5. Walking oximetry prior to discharge 6. Likely okay to leave the intensive care unit IMPRESSIONS: 1. Acute hypoxemic respiratory failure Likely multifactorial in etiology with decompensated heart failure/cor pulmonale contributing. Patient with high salt load recently leading to fluid retention. Patient likely has an element of cor pulmonale with pulmonary artery pressures over 80. Patient should have continuous pulse oximetry. Patient will need significantly more oxygen with ambulation. Low-salt diet was discussed. Patient should continue to receive diuretics as tolerated. Patient would need a right heart catheterization for quantification clarification of lung pressures. Despite having elevated WBC and procalcitonin, would monitor clinically without antibiotics at this time. These can be initiated if the patient develops fever. 2. Elevated troponin Clinical suspicion for elevation of troponin secondary to global hypoxia related to problem #1. Cardiology is following. If patient does have a left heart catheterization, right heart catheterization would be helpful. Patient is at risk for multiple types of pulmonary hypertension and right heart catheterization would be required for characterization 3. History of diabetes mellitus/paroxysmal atrial fibrillation/hypertension/coronary artery disease/chronic kidney disease Complicates care, management, recovery and prognosis. Continue home medications as indicated. HPI Consult Data Date of Consult: 09/16/22 HPI Narrative Reason for Consultation: Acute hypoxic respiratory failure HPI Narrative: PHUC AIKEN is an 86 F, with past medical history listed below, who presents to [facility] on 09/15/2022 secondary to progressive shortness of breath for about a week. Patient reportedly had required BiPAP rescue and was noted to have saturations of 83% at home by EMS. Patient had denied any pain, but had had a cough. Patient reportedly is on Eliquis at baseline and has been compliant with therapy. Patient is supposed to be on Lasix, Plavix and Eliquis as an outpatient. In the ER, patient was afebrile, but tachycardic at 125 bpm despite BiPAP therapy. Blood pressure was slightly elevated at 142/74 and patient was requiring BiPAP at 35% to maintain saturations. Laboratory work-up showed a white blood cell count of 16.8, hemoglobin of 9.6 and platelets of 338. Chemistries showed a normal bicarbonate, but a creatinine of 1.5. Lactate was normal at 1.4, but troponin was 177. BNP was elevated at almost 1000. Chest x- ray was obtained showing bilateral increased markings suggestive of CHF. Patient appeared to respond well to BiPAP therapy was given Lasix and admitted to the intensive care unit for further monitoring. Since being in the intensive care unit, patient has been able to come off of her BiPAP therapy. Patient is requiring 4 L nasal cannula to maintain saturations at rest and desaturates quickly with ambulation or movement. Patient overall feels subjectively much improved compared to previous. Patient is very clear that she has had no sick contacts. No fever or chills have been reported. Patient does report that she has not been compliant with her low-salt diet. Patient reportedly went to [facility] on Thursday. Patient reportedly does have supplemental oxygen at baseline. Review of systems otherwise negative from a constitutional, HEENT, respiratory, cardiovascular, GI, genitourinary, musculoskeletal, skin, neurologic, psychiatric and hematologic system unless stated above. FOR[facility]LY [facility] Medical History Aortic sclerosis Atherosclerosis of coronary artery of [place] heart without angina pectoris Bilateral carotid artery stenosis Chronic combined systolic and diastolic CHF (congestive heart failure) Chronic kidney disease (CKD) Chronic kidney disease, stage 3 Chronic venous insufficiency Diabetes mellitus Diastolic CHF History of non-ST elevation myocardial infarction (NSTEMI) (09/17/21) History of transcatheter aortic valve replacement (TAVR) (05/18/17) Hyperlipidemia Hypertension associated with diabetes Hypoxia Ischemic cardiomyopathy Mitral annular calcification Nonrheumatic aortic (valve) stenosis Nonrheumatic mitral (valve) insufficiency Normocytic anemia Paroxysmal atrial fibrillation Renal artery stenosis Home Medications aspirin 81 mg chewable tablet 81 mg PO DAILY@0800 BLOOD THINNER 04/21/17 [History Last Taken 06/18/22] amlodipine 10 mg tablet 10 mg PO QHS BP 04/28/17 [History Last Taken 06/18/22] apixaban 2.5 mg tablet (Eliquis) 2.5 mg PO BID BLOOD THINNER 09/07/19 [History Last Taken 06/18/22] glimepiride 1 mg tablet 1 mg PO QHS SUGAR 06/19/22 [History Last Taken 06/18/22] glimepiride 2 mg tablet 2 mg PO DAILY SUGAR 06/19/22 [History Last Taken 1 08/18/21] losartan 50 mg tablet 50 mg PO BID BP 06/19/22 [History Last Taken 06/18/22] metoprolol succinate 25 mg tablet,extended release 24 hr 25 mg PO QHS hr 06/19/22 [History Last Taken 06/18/22] furosemide 40 mg tablet 40 mg PO BIDCM FLUID #60 tabs 07/10/22 [Rx Last Taken 06/18/22] potassium chloride 20 mEq tablet,extended release 20 meq PO DAILY #30 tabs 07/10/22 [Rx Last Taken Unknown] clopidogrel 75 mg tablet 75 mg PO DAILY 07/30/22 [History Last Taken Unknown] metoprolol succinate 100 mg tablet,extended release 24 hr 100 mg PO DAILY 07/30/22 [History Last Taken Unknown] Allergy/AdvReac Type Severity Reaction Status Date / Time No Known Allergies Allergy Verified 09/15/22 04:50 Family History Sister Asthma Breast cancer Hypertension Hyperlipidemia Melanoma Father , From old age per patient. Denies specific medical problems. No problems noted. Mother , From old age per patient. Denies specific medical problems. No problems noted. Surgical History History of appendectomy History of coronary angioplasty (09/18/21) History of left heart catheterization (04/2017) Social History household members: spouse Smoking Status: Never smoker alcohol intake: never substance use type: does not use caffeine: Yes Type: coffee Number of servings: 1 ROS ROS Narrative See HPI Physical Exam Const alert, oriented x3 and no apparent distress General Appearance: cooperative; Negative for lethargic HEENT normocephalic and head/scalp atraumatic Head and Scalp: atraumatic Eyes PERRL, EOMs intact bilaterally, conjunctivae normal and no scleral icterus Neck General: normal visual inspection Chest inspection of chest normal Resp normal respiratory effort Auscultation: rales bilateral base and diminished lung sounds; Negative for rhonchi or wheezes Cardio regular rate, regular rhythm, S1 normal heart sound, S2 normal heart sound, no rub and no gallops Jugular Venous Distention: JVD Heart Sounds: murmur systolic GI normal to inspection, nondistended, normoactive bowel sounds Extremity normal capillary refill and no pedal edema Peripheral Pulses: Yes pulses 2+ throughout and femoral pulses present Skin no rashes or lesions noted Neuro oriented x3 and CN's II-XII intact bilaterally Psych cooperative and affect normal Medical Records Data Attestation: I reviewed the patient's medical records Medical records narrative: Patient did have an echocardiogram showing an EF of 65%, but a pulmonary artery systolic pressure of 85 mmHg. Lab / Micro Data Attestation: I reviewed the patient's lab results. Result Diagrams: 09/16/22 03:55 09/16/22 03:55 Labs: Laboratory Results - last 24 hr 09/15/22 04:55: Diff Path Review Reviewed 09/15/22 10:03: Troponin I High Sens 577 H* 09/15/22 11:14: POC Glucose 359 H 09/15/22 16:22: POC Glucose 310 H 09/15/22 21:42: POC Glucose 111 H 09/16/22 03:55: WBC 11.2 H, RBC 3.12 L, Hgb 8.3 L, Hct 26.2 L, MCV 84.0, MCH 26.6 L, MCHC 31.7 L, RDW Std Deviation 48.7 H, RDW Coeff of Jesi 15.8 H, Plt Count 279, MPV 9.4, Immature Gran % (Auto) 0.400, Neut % (Auto) 79.4 H, Lymph % (Auto) 9.5 L, [place] % (Auto) 10.1 H, Eos % (Auto) 0.4, Baso % (Auto) 0.2, Absolute Neuts (auto) 8.9 H, Absolute Lymphs (auto) 1.07, Nucleated RBC % 0 09/16/22 03:55: Sodium 140, Potassium 3.9, Chloride 107, Carbon Dioxide 23.0, Anion Gap 10, BUN 45 H, Creatinine 1.62 H, Estim Creat Clear Calc 18.46, Est GFR (MDRD) Af Amer 39 L, Est GFR (MDRD) Non-Af 32 L, BUN/Creatinine Ratio 27.8 H, Glucose 161 H, Calcium 8.8, Total Bilirubin 0.80, AST 17, ALT 19, Alkaline Phosphatase 86, Total Protein 6.5, Albumin 2.2 L, Globulin 4.3 H, Albumin /Globulin Ratio 0.5 L, Triglycerides 60, Cholesterol 133, LDL Cholesterol 63, VLDL Cholesterol 12, HDL Cholesterol 58, TSH 0.69 09/16/22 07:57: POC Glucose 165 H Micro: Microbiology 09/15/22 05:08 Mucosa - Nose Respiratory Panel (PCR) - Final ABG Data ABG results: ABG 09/15/22 19:59 Specimen Type ART Sample Site R Radial pH 7.45 Bicarbonate Actual 20.3 L Total CO2 21 Base Excess -4 L O2 Saturation 99 O2 % 50 ABG pCO2 29.0 L ABG pO2 109 H Thad Test Positive O2 Delivery Device BiPAP Clinical Comments 15*10. 50fio2 Attestation: I personally reviewed and interpreted this ABG as follows: (Compe nsatory respiratory acidosis with increased AA gradient. ) Radiology Impression Echocardiogram 09/15/22 07:58 Interpretation Summary Normal LV size. Moderate concentric left ventricular hypertrophy. Left ventricular systolic function is normal. The estimated ejection fraction is 65 %. The left atrium is mildly enlarged. There is moderate mitral annular calcification. Pulmonary artery systolic pressure is 84 mmHg. Severe pulmonary hypertension. Stage 2 diastolic dysfunction. The global longitudinal strain is normal. The global longitudinal strain = -18 % (normal). Ordering Physician: Breanna Guerra Performed By: Blayne Roberts RCS Chest X-Ray 09/15/22 20:00 IMPRESSION: There has been no change in the appearance of the chest since the prior study. Electronically Signed: Froylan Doyle MD at 20:11 EST , Charges/Coding Visit Charges Inpatient E&M: 60719 Init Hosp L3
[2022-09-16] MEDS: Metoprolol(XL)Succ 100 MG Tablet PO (10:04)
[2022-09-16] MEDS: APIXABAN 2.5 MG TABLET (WCH) PO ×2 (10:05→21:23)
[2022-09-16] MEDS: Losartan Potassium 50 MG Tablet PO ×2 (10:05→21:23)
[2022-09-16] MEDS: Furosemide 40 MG/4 ML Vial IV ×2 (10:05→17:47)
[2022-09-16] MEDS: Clopidogrel Bisulfate 75 MG Tablet PO (10:05)
[2022-09-16] MEDS: Spironolactone 25 MG Tablet PO (10:07)
--- NOTE | 2022-09-16 11:13 | CHAPLAIN ---
Type of Pastoral Visit _x__ Initial Visit ___ Follow-up Visit ___ On-call Visit ___ General Patient Visit ___ Spiritual Assessment ___ Family Conference ___ Bereavement ___ Rapid Response ___ Code Blue ___ Other (describe below) Pastoral Care Referral From _x__ Patient ___ Family ___ Nurse ___ Physician ___ External Relations Director ___ Asphalt Patcher ___ Other (describe below) Sacrament/Intervention _x__ Active listening ___ Anointing ___ Roman Catholic ___ Bereavement ___ Communion ___ Roxane exploration ___ ___ Life review _x__ Prayer ___ Reconciliation ___ Sacrament of Sick _x__ Supportive presence ___ Wedding ___ Other (describe below) Pastoral Comments spouse is with patient in the room; pt has been seen before in previous admissions; pt is alert and able to talk; pt explains her recent need for admission; pt states that she is coping pretty well; pt expresses appreciation for care her gives; pt expects to be transferred back to PCU and then hopefully home; pt welcomes a prayer and the show of concern; pt has no other needs at this time
[2022-09-16 11:45] LABS: Bedside Glucose 198 mg/dL (74-106)
--- NOTE | 2022-09-16 15:48 | PCM.PN.HOSP ---
Subjective Subjective Patient was seen and examined today, she is currently stable on 2 L of oxygen. Patient will be moved back to PCU, it may have been that the patient had a panic attack last night when she complained of severe shortness of breath. Objective Data Objective Data Vital Signs: Vital Signs Temp Pulse Resp BP Pulse Ox O2 Del Method O2 Flow Rate 98.4 F 92 28 H 144/61 H 92 Nasal Cannula 2 09/16/22 12:00 09/16/22 12:00 09/16/22 12:00 09/16/22 12:00 09/16/22 12:00 09/16/22 12:00 09/16/22 14:18 FiO2 30 09/15/22 21:30 Oxygen Flow Rate (L/min) 2 Oxygen Delivery Method Nasal Cannula Weight: 65.1 kg Body Mass Index (BMI) 27.8 Intake & Output: Intake and Output for Last 24 Hours 09/14/22 09/15/22 09/16/22 23:59 23:59 23:59 Output Total 500 / 500 550 / 550 Balance -500 / -500 -550 / -550 Lab / Micro Data Result Diagrams: 09/16/22 03:55 09/16/22 03:55 Labs: Laboratory Results - last 24 hr 09/15/22 16:22: POC Glucose 310 H 09/15/22 21:42: POC Glucose 111 H 09/16/22 03:55: WBC 11.2 H, RBC 3.12 L, Hgb 8.3 L, Hct 26.2 L, MCV 84.0, MCH 26.6 L, MCHC 31.7 L, RDW Std Deviation 48.7 H, RDW Coeff of Jesi 15.8 H, Plt Count 279, MPV 9.4, Immature Gran % (Auto) 0.400, Neut % (Auto) 79.4 H, Lymph % (Auto) 9.5 L, [place] % (Auto) 10.1 H, Eos % (Auto) 0.4, Baso % (Auto) 0.2, Absolute Neuts (auto) 8.9 H, Absolute Lymphs (auto) 1.07, Nucleated RBC % 0 09/16/22 03:55: Sodium 140, Potassium 3.9, Chloride 107, Carbon Dioxide 23.0, Anion Gap 10, BUN 45 H, Creatinine 1.62 H, Estim Creat Clear Calc 18.46, Est GFR (MDRD) Af Amer 39 L, Est GFR (MDRD) Non-Af 32 L, BUN/Creatinine Ratio 27.8 H, Glucose 161 H, Calcium 8.8, Total Bilirubin 0.80, AST 17, ALT 19, Alkaline Phosphatase 86, Total Protein 6.5, Albumin 2.2 L, Globulin 4.3 H, Albumin/Globulin Ratio 0.5 L, Triglycerides 60, Cholesterol 133, LDL Cholesterol 63, VLDL Cholesterol 12, HDL Cholesterol 58, TSH 0.69 09/16/22 07:57: POC Glucose 165 H 09/16/22 11:25: POC Glucose 198 H Micro: Microbiology 09/15/22 05:08 Mucosa - Nose Respiratory Panel (PCR) - Final ABG Data ABG results: ABG 09/15/22 19:59 Specimen Type ART Sample Site R Radial pH 7.45 Bicarbonate Actual 20.3 L Total CO2 21 Base Excess -4 L O2 Saturation 99 O2 % 50 ABG pCO2 29.0 L ABG pO2 109 H Thad Test Positive O2 Delivery Device BiPAP Clinical Comments 15*10. 50fio2 Radiography Diagnostic Testing: Radiology Impression Chest X-Ray 09/15/22 20:00 IMPRESSION: There has been no change in the appearance of the chest since the prior study. Electronically Signed: Froylan Doyle MD at 20:11 EST Reading Location ID and State: [facility] / [place] , Service support , Physical Exam Const alert, oriented x3 and no apparent distress General Appearance: cooperative, well kempt and well developed Orientation / Consciousness: awake, oriented to person, oriented to place and oriented to time HEENT normocephalic, head/scalp atraumatic and moist oral mucous membranes Eyes PERRL, EOMs intact bilaterally and conjunctivae normal Neck supple, no JVD, thyroid normal and no carotid bruits General: trachea midline Resp normal respiratory effort, no retractions and no use of accessory muscles Resp Narrative: Inspiratory rales at the bases bilaterally Auscultation: Negative for rales, rhonchi or wheezes Cardio regular rate, regular rhythm, S1 normal heart sound, S2 normal heart sound, no murmurs, no rub and no gallops GI normal to inspection, nondistended, normoactive bowel sounds, soft to palpation, non-tender and non-distended Extremity no clubbing, cyanosis or edema Skin no rashes or lesions noted General Skin Exam: no breakdown Neuro oriented x3, CN's II-XII intact bilaterally, moves all extremities, no focal motor deficits and no sensory deficits noted Sensorium / Orientation: awake, alert, oriented to person and oriented to place Speech: speech normal Psych affect normal Assessment & Plan Assessment/Plan (1) Acute exacerbation of CHF (congestive heart failure): PLAN: Plan 1. Acute exacerbation of diastolic congestive heart failure-patient will remain on IV diuretics at this time, she is being seen by cardiology, she was also seen by critical care today #2 acute hypoxic respiratory failure secondary to #1-patient is currently on nasal cannula oxygen #3 severe pulmonary hypertension-complicates care, medical course, recovery, and prognosis #4 coronary artery disease-patient will remain on her present medications, she is being seen by cardiology in consultation #5 chronic kidney disease stage IIIb-patient's labs will be monitored as needed, complicates care, medical course, recovery, and prognosis Total clinical time spent by myself addressing the patient's medical problems, reviewing all of the data, and collaborating with patient's care team: 37 minutes Charges/Coding Visit Charges Inpatient E&M: 16419 Subs Hosp L2
[2022-09-16 18:10] LABS: Bedside Glucose 301 mg/dL (74-106)
[2022-09-16] MEDS: amLODIPine 10 MG Tablet PO (21:23)
[2022-09-16] MEDS: Atorvastatin Calcium 10 MG Tablet PO (21:23)
[2022-09-16] MEDS: Metoprolol(XL)Succ 25 MG Tablet PO (21:23)
[2022-09-16 22:26] LABS: Bedside Glucose 337 mg/dL (74-106)
[2022-09-17] VITALS (13 sets, daily range): BP systolic 130–145; BP diastolic 66–78; PULSE 61–95; RESP 12–20; TEMP 36.8–37.1; O2SAT 94–98
[2022-09-17 06:13] LABS: Absolute Lymphocyte Count 1.22 X10^3/uL (0.83-4.51); Absolute Neutrophil Count 5.9 X10^3/uL (2.0-7.7); Basophil# 0.05 X10^3/uL; Basophil% 0.6 % (0-1); Eosinophil# 0.61 X10^3/uL; Eosinophils% 6.9 % (0-5); Hematocrit 27.2 % (37-47); Hemoglobin 8.5 g/dL (12.0-15.0); Lymphocyte # 1.22 X10^3/ul (0.83-4.51); Lymphocyte % 13.9 % (19-41); Mean Corp Hgb Conc 31.3 g/dL (32-36); Mean Corpuscular Hgb 26.4 pg (27.0-32.0); Mean Corpuscular Volume 84.5 fL (81-99); Mean Platelet Vol. 9.3 fl (6.2-12.0); Monocyte# 0.99 X10^3/uL; Monocyte% 11.3 % (0-10); NRBC Flagged by Analyzer 0 % (0-5); Neutrophil # 5.89 X10^3/uL (2.7-7.7); Platelet Count 292 K/mm3 (150-450); RBC Distribution Width CV 15.5 % (11.6-14.6); RBC Distribution Width SD 47.9 fl (35.1-43.9); Red Blood Count 3.22 M/mm3 (4.2-5.4); White Blood Count 8.8 K/mm3 (4.4-11.0)
[2022-09-17] MEDS: Insulin Lispro 100 UNIT/ML INSULN.PEN SC ×4 (06:47→21:50)
[2022-09-17 06:50] LABS: Albumin, Serum 2.1 g/dL (3.2-5.0); BUN 44 mg/dL (7-18); BUN/Creat Ratio 29.1 RATIO (10-20); Calcium,Total 8.8 mg/dL (8.5-10.1); Chloride 108 mmol/L (98-107); Creatinine, Serum 1.51 mg/dL (0.55-1.02); EST Glomerular Filtration Rate 35 mL/min (>60); Est Glom Filt Rate - Afr Amer 42 mL/min (>60); Estimated Creatinine Clearance 19.43 ml/min; Glucose 203 mg/dL (74-106); Phosphorus 3.3 mg/dL (2.5-4.9); Potassium 3.6 mmol/L (3.5-5.1); Sodium Level 139 mmol/L (136-145)
[2022-09-17 07:20] LABS: Bedside Glucose 182 mg/dL (74-106)
[2022-09-17] MEDS: Clopidogrel Bisulfate 75 MG Tablet PO (08:03)
[2022-09-17] MEDS: Losartan Potassium 50 MG Tablet PO ×2 (08:03→21:50)
[2022-09-17] MEDS: APIXABAN 2.5 MG TABLET (WCH) PO ×2 (08:03→21:49)
[2022-09-17] MEDS: Metoprolol(XL)Succ 100 MG Tablet PO (08:03)
[2022-09-17] MEDS: Furosemide 40 MG/4 ML Vial IV ×2 (08:04→17:20)
[2022-09-17] MEDS: Spironolactone 25 MG Tablet PO (08:04)
[2022-09-17] MEDS: Aspirin 81 MG TAB.CHEW PO (08:04)
--- NOTE | 2022-09-17 08:18 | PN.CC_ITS ---
Assessment & Plan Assessment/Plan (1) Acute hypoxemic respiratory failure: PLAN: Plan RECOMMENDATIONS: 1. Continue to wean supplemental oxygen to maintain saturations at or above 90%. 2. Continue diuresis as tolerated by hemodynamics and renal function. 3. Agree with monitoring clinically. No antibiotics at this time 4. Encourage incentive spirometer use and mobilize patient as tolerated. 5. Walking oximetry prior to discharge 6. May need to evaluate for larger home concentrator IMPRESSIONS: 1. Acute hypoxemic respiratory failure Likely multifactorial in etiology with decompensated heart failure/cor pulmonale contributing. Patient with high salt load recently leading to fluid retention. Patient likely has an element of cor pulmonale with pulmonary artery pressures over 80. Patient should have continuous pulse oximetry. Patient will need significantly more oxygen with ambulation. Low-salt diet was discussed. Patient should continue to receive diuretics as tolerated. Patient would need a right heart catheterization for quantification clarification of lung pressures. Patient appears to be doing well off of antibiotics. Antibiotics can be initiated if the patient develops fever. 2. Elevated troponin Clinical suspicion for elevation of troponin secondary to global hypoxia related to problem #1. Cardiology is following. If patient does have a left heart catheterization, right heart catheterization would be helpful. Patient is at risk for multiple types of pulmonary hypertension and right heart catheterization would be required for characterization 3. History of diabetes mellitus/paroxysmal atrial fibrillation/hypertension/coronary artery disease/chronic kidney disease Complicates care, management, recovery and prognosis. Continue home medications as indicated. Subjective Subjective Patient did well overnight. Patient feels subjectively improved and is having no dyspnea at rest. However, patient does get short of breath with minimal exertion. Patient denies any current chest pain or palpitations. Objective Data Objective Data Vital Signs: Vital Signs Temp Pulse Resp BP Pulse Ox O2 Del Method O2 Flow Rate 37.1 C 83 12 138/66 H 98 Nasal Cannula 5 09/17/22 02:00 09/17/22 08:03 09/17/22 02:00 09/17/22 08:03 09/17/22 02:00 09/17/22 02:00 09/16/22 23:05 FiO2 40 09/16/22 19:21 Oxygen Flow Rate (L/min) 5 Oxygen Delivery Method Nasal Cannula Weight: 66.4 kg Body Mass Index (BMI) 27.8 Intake & Output: Intake and Output for Last 24 Hours 01/09/16/22 09/17/22 23:59 23:59 23:59 Intake Total Output Total 500 / 500 1200 / 1200 Balance -500 / -500 -1200 / -1180 Lab / Micro Data Attestation: I reviewed the patient's lab results. Result Diagrams: 09/17/22 06:06 09/17/22 06:06 Labs: Laboratory Results - last 24 hr 09/16/22 07:57: POC Glucose 165 H 09/16/22 11:25: POC Glucose 198 H 09/16/22 16:58: POC Glucose 301 H 09/16/22 21:12: POC Glucose 337 H 09/17/22 06:06: WBC 8.8, RBC 3.22 L, Hgb 8.5 L, Hct 27.2 L, MCV 84.5, MCH 26.4 L , MCHC 31.3 L, RDW Std Deviation 47.9 H, RDW Coeff of Jesi 15.5 H, Plt Count 292, MPV 9.3, Immature Gran % (Auto) 0.300, Neut % (Auto) 67.0, Lymph % (Auto) 13.9 L , [place] % (Auto) 11.3 H, Eos % (Auto) 6.9 H, Baso % (Auto) 0.6, Absolute Neuts (auto) 5.9, Absolute Lymphs (auto) 1.22, Nucleated RBC % 0 09/17/22 06:06: Sodium 139, Potassium 3.6, Chloride 108 H, Carbon Dioxide 24.0, BUN 44 H, Creatinine 1.51 H, Estim Creat Clear Calc 19.43, Est GFR (MDRD) Af Amer 42 L, Est GFR (MDRD) Non-Af 35 L, BUN/Creatinine Ratio 29.1 H, Glucose 203 H, Calcium 8.8, Phosphorus 3.3, Albumin 2.1 L 09/17/22 06:45: POC Glucose 182 H Micro: Microbiology 09/15/22 05:08 Mucosa - Nose Respiratory Panel (PCR) - Final Physical Exam Const alert, oriented x3 and no apparent distress General Appearance: cooperative; Negative for lethargic HEENT normocephalic and head/scalp atraumatic Eyes PERRL, EOMs intact bilaterally, conjunctivae normal and no scleral icterus Neck General: normal visual inspection Chest inspection of chest normal Resp normal respiratory effort Auscultation: rales bilateral (Improving) base and diminished lung sounds; Negative for rhonchi or wheezes Cardio regular rate, regular rhythm, S1 normal heart sound, S2 normal heart sound, no rub and no gallops Jugular Venous Distention: JVD Heart Sounds: murmur systolic GI normal to inspection, nondistended, normoactive bowel sounds Extremity normal capillary refill and no pedal edema Skin no rashes or lesions noted Neuro oriented x3 and CN's II-XII intact bilaterally Psych cooperative and affect normal Charges/Coding Visit Charges Inpatient E&M: 27006 Subs Hosp L2
[2022-09-17 11:55] LABS: Bedside Glucose 328 mg/dL (74-106)
[2022-09-17 11:55] LABS: Bedside Glucose 309 mg/dL (74-106)
--- NOTE | 2022-09-17 12:20 | PN.HOSP_ITS ---
Subjective Subjective Patient was seen and examined today, she remains on supplemental oxygen at 3 L at this time. Patient has no complaints of any chest pain or shortness of breath at rest. Objective Data Objective Data Vital Signs: Vital Signs Temp Pulse Resp BP Pulse Ox O2 Del Method O2 Flow Rate 98.4 F 83 20 H 138/66 H 96 Nasal Cannula 3 09/17/22 08:00 09/17/22 08:03 09/17/22 08:00 09/17/22 08:03 09/17/22 11:10 09/17/22 11:10 09/17/22 11:10 FiO2 40 09/16/22 19:21 Oxygen Flow Rate (L/min) 3 Oxygen Delivery Method Nasal Cannula Weight: 66.4 kg Body Mass Index (BMI) 27.8 Intake & Output: Intake and Output for Last 24 Hours 09/15/22 09/16/22 09/17/22 23:59 23:59 23:59 Intake Total 380 / 380 Output Total 500 / 500 1200 / 1200 Balance -500 / -500 -1200 / -1180 380 / 380 Lab / Micro Data Result Diagrams: 09/17/22 06:06 09/17/22 06:06 Labs: Laboratory Results - last 24 hr 09/16/22 16:58: POC Glucose 301 H 09/16/22 21:12: POC Glucose 337 H 09/17/22 06:06: WBC 8.8, RBC 3.22 L, Hgb 8.5 L, Hct 27.2 L, MCV 84.5, MCH 26.4 L , MCHC 31.3 L, RDW Std Deviation 47.9 H, RDW Coeff of Jesi 15.5 H, Plt Count 292, MPV 9.3, Immature Gran % (Auto) 0.300, Neut % (Auto) 67.0, Lymph % (Auto) 13.9 L , [place] % (Auto) 11.3 H, Eos % (Auto) 6.9 H, Baso % (Auto) 0.6, Absolute Neuts (auto) 5.9, Absolute Lymphs (auto) 1.22, Nucleated RBC % 0 09/17/22 06:06: Sodium 139, Potassium 3.6, Chloride 108 H, Carbon Dioxide 24.0, BUN 44 H, Creatinine 1.51 H, Estim Creat Clear Calc 19.43, Est GFR (MDRD) Af Amer 42 L, Est GFR (MDRD) Non-Af 35 L, BUN/Creatinine Ratio 29.1 H, Glucose 203 H, Calcium 8.8, Phosphorus 3.3, Albumin 2.1 L 09/17/22 06:45: POC Glucose 182 H 09/17/22 11:06: POC Glucose 328 H 09/17/22 11:13: POC Glucose 309 H Micro: Microbiology 09/15/22 05:08 Mucosa - Nose Respiratory Panel (PCR) - Final Physical Exam Const alert, oriented x3, no apparent distress and average body habitus General Appearance: cooperative, well kempt and well developed Orientation / Consciousness: awake, oriented to person, oriented to place and oriented to time HEENT normocephalic and moist oral mucous membranes Eyes PERRL, EOMs intact bilaterally and conjunctivae normal Neck supple, no JVD, thyroid normal and no carotid bruits General: trachea midline Resp normal respiratory effort, no retractions and no use of accessory muscles Resp Narrative: Decreased breath sounds are noted anteriorly Auscultation: Negative for rales, rhonchi or wheezes Cardio regular rate, regular rhythm, S1 normal heart sound, S2 normal heart sound, no murmurs, no rub and no gallops GI normal to inspection, nondistended, normoactive bowel sounds, soft to palpation, non-tender and non-distended Extremity no clubbing, cyanosis or edema Skin no rashes or lesions noted General Skin Exam: no breakdown Neuro oriented x3, CN's II-XII intact bilaterally, moves all extremities, no focal motor deficits and no sensory deficits noted Sensorium / Orientation: awake, alert, oriented to person, oriented to place and oriented to time Speech: speech normal Psych affect normal Assessment & Plan Assessment/Plan (1) Acute exacerbation of CHF (congestive heart failure): PLAN: Plan 1. Acute exacerbation of diastolic congestive heart failure-patient will remain on IV diuretics at this time, she is being seen by cardiology, she was also seen by critical care today. 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-patient's labs will be monitored as needed, complicates care, medical course, recovery, and prognosis #6 non-ST elevation [place]-type II, supportive treatment at this time, no catheterization is planned #7 type 2 diabetes-continue to monitor blood sugars, sliding scale insulin will be used as needed #8 Paroxysmal atrial fibrillation-patient is currently on apixaban and rate limiting meds #9 Hypercoagulable state due to paroxysmal atrial fibrillation-patient is on apixaban Total clinical time spent by myself addressing the patient's medical problems, reviewing all of the data, and collaborating with patient's care team: [address] Charges/Coding Visit Charges Inpatient E&M: 57846 Subs Hosp L2
[2022-09-17 16:55] LABS: Bedside Glucose 252 mg/dL (74-106)
[2022-09-17] MEDS: 0.9% Saline Lock 10 ML Syringe IV (17:19)
[2022-09-17] MEDS: Atorvastatin Calcium 10 MG Tablet PO (21:48)
[2022-09-17] MEDS: amLODIPine 10 MG Tablet PO (21:48)
[2022-09-17] MEDS: Metoprolol(XL)Succ 25 MG Tablet PO (21:49)
[2022-09-17 22:45] LABS: Bedside Glucose 258 mg/dL (74-106)
[2022-09-18] VITALS (12 sets, daily range): BP systolic 114–148; BP diastolic 57–75; PULSE 82–94; RESP 18–20; TEMP 36.5–37.2; O2SAT 89–96
[2022-09-18] MEDS: 0.9% Saline Lock 10 ML Syringe IV ×2 (05:38→08:02)
[2022-09-18] MEDS: Insulin Lispro 100 UNIT/ML INSULN.PEN SC ×4 (06:54→22:18)
[2022-09-18 07:15] LABS: Absolute Lymphocyte Count 0.94 X10^3/uL (0.83-4.51); Absolute Neutrophil Count 4.7 X10^3/uL (2.0-7.7); Basophil# 0.06 X10^3/uL; Basophil% 0.8 % (0-1); Eosinophil# 0.68 X10^3/uL; Eosinophils% 9.3 % (0-5); Hematocrit 27.8 % (37-47); Hemoglobin 8.7 g/dL (12.0-15.0); Lymphocyte # 0.94 X10^3/ul (0.83-4.51); Lymphocyte % 12.8 % (19-41); Mean Corp Hgb Conc 31.3 g/dL (32-36); Mean Corpuscular Hgb 26.3 pg (27.0-32.0); Mean Platelet Vol. 9.2 fl (6.2-12.0); Monocyte# 0.94 X10^3/uL; Monocyte% 12.8 % (0-10); NRBC Flagged by Analyzer 0 % (0-5); Platelet Count 309 K/mm3 (150-450); RBC Distribution Width SD 46.5 fl (35.1-43.9); Red Blood Count 3.31 M/mm3 (4.2-5.4); White Blood Count 7.3 K/mm3 (4.4-11.0)
[2022-09-18 07:16] LABS: Bedside Glucose 171 mg/dL (74-106)
[2022-09-18 07:52] LABS: Anion Gap 8 (5-15); BUN 43 mg/dL (7-18); BUN/Creat Ratio 29.9 RATIO (10-20); Calcium,Total 8.8 mg/dL (8.5-10.1); Chloride 106 mmol/L (98-107); Creatinine, Serum 1.44 mg/dL (0.55-1.02); EST Glomerular Filtration Rate 37 mL/min (>60); Est Glom Filt Rate - Afr Amer 44 mL/min (>60); Estimated Creatinine Clearance 20.38 ml/min; Glucose 176 mg/dL (74-106); Potassium 3.6 mmol/L (3.5-5.1); Sodium Level 139 mmol/L (136-145)
[2022-09-18] MEDS: APIXABAN 2.5 MG TABLET (WCH) PO ×2 (08:01→22:18)
[2022-09-18] MEDS: Metoprolol(XL)Succ 100 MG Tablet PO (08:01)
[2022-09-18] MEDS: Losartan Potassium 50 MG Tablet PO ×2 (08:02→22:18)
[2022-09-18] MEDS: Clopidogrel Bisulfate 75 MG Tablet PO (08:02)
[2022-09-18] MEDS: Spironolactone 25 MG Tablet PO (08:02)
[2022-09-18] MEDS: Aspirin 81 MG TAB.CHEW PO (08:02)
[2022-09-18] MEDS: Furosemide 40 MG/4 ML Vial IV ×2 (08:02→17:30)
--- NOTE | 2022-09-18 10:10 | PN.CC_ITS ---
Assessment & Plan Assessment/Plan (1) Acute hypoxemic respiratory failure: PLAN: Plan RECOMMENDATIONS: 1. Continue to wean supplemental oxygen to maintain saturations at or above 90%. 2. Continue diuresis as tolerated by hemodynamics and renal function. 3. Agree with monitoring clinically. No antibiotics at this time 4. Encourage incentive spirometer use and mobilize patient as tolerated. 5. Walking oximetry will be ordered 6. May need to evaluate for larger home concentrator if requires 6 L or more with ambulation 7. Okay to continue with discharge planning IMPRESSIONS: 1. Acute hypoxemic respiratory failure Likely multifactorial in etiology with decompensated heart failure/cor pulmonale contributing. Patient with high salt load recently leading to fluid retention. Patient likely has an element of cor pulmonale with pulmonary artery pressures over 80. Patient should have continuous pulse oximetry. Patient will need significantly more oxygen with ambulation. Low-salt diet was discussed. Patient appears to be tolerating diuretics. Patient would need a right heart catheterization for quantification clarification of lung pressures if aggressive therapy is pursued moving forward. Patient appears to be doing well off of antibiotics. 2. Elevated troponin Clinical suspicion for elevation of troponin secondary to global hypoxia related to problem #1. Cardiology is following. If patient does have a left heart catheterization, right heart catheterization would be helpful. Patient is at risk for multiple types of pulmonary hypertension and right heart catheterization would be required for characterization 3. History of diabetes mellitus/paroxysmal atrial fibrillation/hypertension/coronary artery disease/chronic kidney disease Complicates care, management, recovery and prognosis. Continue home medications as indicated. Subjective Subjective Patient did well overnight. Patient subjectively slowly improving. Patient has been tolerating 2 L nasal cannula at rest. Patient denies any chest pain or palpitations. Objective Data Objective Data Vital Signs: Vital Signs Temp Pulse Resp BP Pulse Ox O2 Del Method O2 Flow Rate 36.5 C L 90 20 H 134/65 H 94 Nasal Cannula 2 09/18/22 05:33 09/18/22 08:01 09/18/22 05:33 09/18/22 08:01 09/18/22 08:02 09/18/22 08:10 09/18/22 08:10 FiO2 40 09/16/22 19:21 Oxygen Flow Rate (L/min) 2 Oxygen Delivery Method Nasal Cannula Weight: 64.455 kg Body Mass Index (BMI) 27.8 Intake & Output: Intake and Output for Last 24 Hours 09/16/22 09/17/22 09/18/22 23:59 23:59 23:59 Intake Total 880 / 880 300 / 300 Output Total 1200 / 1200 Balance -1200 / -1180 880 / 880 300 / 300 Lab / Micro Data Attestation: I reviewed the patient's lab results. Result Diagrams: 09/18/22 07:08 09/18/22 07:08 Labs: Laboratory Results - last 24 hr 09/17/22 11:06: POC Glucose 328 H 09/17/22 11:13: POC Glucose 309 H 09/17/22 16:23: POC Glucose 252 H 09/17/22 21:47: POC Glucose 258 H 09/18/22 06:52: POC Glucose 171 H 09/18/22 07:08: WBC 7.3, RBC 3.31 L, Hgb 8.7 L, Hct 27.8 L, MCV 84.0, MCH 26.3 L , MCHC 31.3 L, RDW Std Deviation 46.5 H, RDW Coeff of Jesi 15.0 H, Plt Count 309, MPV 9.2, Immature Gran % (Auto) 0.300, Neut % (Auto) 64.0, Lymph % (Auto) 12.8 L , [place] % (Auto) 12.8 H, Eos % (Auto) 9.3 H, Baso % (Auto) 0.8, Absolute Neuts (auto) 4.7, Absolute Lymphs (auto) 0.94, Nucleated RBC % 0 09/18/22 07:08: Sodium 139, Potassium 3.6, Chloride 106, Carbon Dioxide 25.0, Anion Gap 8, BUN 43 H, Creatinine 1.44 H, Estim Creat Clear Calc 20.38, Est GFR (MDRD) Af Amer 44 L, Est GFR (MDRD) Non-Af 37 L, BUN/Creatinine Ratio 29.9 H, Glucose 176 H, Calcium 8.8 Micro: Microbiology 09/15/22 05:08 Mucosa - Nose Respiratory Panel (PCR) - Final Physical Exam Const alert, oriented x3 and no apparent distress General Appearance: cooperative; Negative for lethargic HEENT normocephalic and head/scalp atraumatic Eyes PERRL, EOMs intact bilaterally, conjunctivae normal and no scleral icterus Neck General: normal visual inspection Chest inspection of chest normal Resp normal respiratory effort Auscultation: rales bilateral (Improving) base and diminished lung sounds; Negative for rhonchi or wheezes Cardio regular rate, regular rhythm, S1 normal heart sound, S2 normal heart sound, no rub and no gallops Jugular Venous Distention: JVD Heart Sounds: murmur systolic GI normal to inspection, nondistended, normoactive bowel sounds Extremity normal capillary refill and no pedal edema Skin no rashes or lesions noted Neuro oriented x3 and CN's II-XII intact bilaterally Psych cooperative and affect normal Charges/Coding Visit Charges Inpatient E&M: 22681 Subs Hosp L2
[2022-09-18 11:25] LABS: Bedside Glucose 226 mg/dL (74-106)
[2022-09-18 16:25] LABS: Bedside Glucose 355 mg/dL (74-106)
--- NOTE | 2022-09-18 16:36 | PN.HOSP_ITS ---
Subjective Subjective Seen and examined today, she is requiring supplemental oxygen at 2 L still. She does not complain of any chest pain or shortness of breath. Blood sugars have been running somewhat high, patient is not on her Amaryl currently, I have elected to restart it. Objective Data Objective Data Vital Signs: Vital Signs Temp Pulse Resp BP Pulse Ox O2 Del Method O2 Flow Rate 98.7 F 88 18 114/57 L 95 Nasal Cannula 1 09/18/22 11:15 09/18/22 14:58 09/18/22 11:15 09/18/22 11:15 09/18/22 13:30 09/18/22 13:50 09/18/22 13:50 FiO2 40 09/16/22 19:21 Oxygen Flow Rate (L/min) 1 Oxygen Delivery Method Nasal Cannula Weight: 64.455 kg Body Mass Index (BMI) 27.8 Intake & Output: Intake and Output for Last 24 Hours 09/16/22 09/17/22 09/18/22 23:59 23:59 23:59 Intake Total 880 / 880 800 / 800 Output Total 1200 / 1200 Balance -1200 / -1180 880 / 880 800 / 800 Lab / Micro Data Result Diagrams: 09/18/22 07:08 09/18/22 07:08 Labs: Laboratory Results - last 24 hr 09/17/22 16:23: POC Glucose 252 H 09/17/22 21:47: POC Glucose 258 H 09/18/22 06:52: POC Glucose 171 H 09/18/22 07:08: WBC 7.3, RBC 3.31 L, Hgb 8.7 L, Hct 27.8 L, MCV 84.0, MCH 26.3 L , MCHC 31.3 L, RDW Std Deviation 46.5 H, RDW Coeff of Jesi 15.0 H, Plt Count 309, MPV 9.2, Immature Gran % (Auto) 0.300, Neut % (Auto) 64.0, Lymph % (Auto) 12.8 L , [place] % (Auto) 12.8 H, Eos % (Auto) 9.3 H, Baso % (Auto) 0.8, Absolute Neuts (auto) 4.7, Absolute Lymphs (auto) 0.94, Nucleated RBC % 0 09/18/22 07:08: Sodium 139, Potassium 3.6, Chloride 106, Carbon Dioxide 25.0, Anion Gap 8, BUN 43 H, Creatinine 1.44 H, Estim Creat Clear Calc 20.38, Est GFR (MDRD) Af Amer 44 L, Est GFR (MDRD) Non-Af 37 L, BUN/Creatinine Ratio 29.9 H, Glucose 176 H, Calcium 8.8 09/18/22 11:04: POC Glucose 226 H 09/18/22 15:58: POC Glucose 355 H Micro: Microbiology 09/15/22 05:08 Mucosa - Nose Respiratory Panel (PCR) - Final Physical Exam Narrative alert, oriented x3 and no apparent distress General Appearance: cooperative, well kempt and well developed Orientation / Consciousness: awake, oriented to person, oriented to place and oriented to time HEENT normocephalic, head/scalp atraumatic and moist oral mucous membranes Eyes PERRL, EOMs intact bilaterally and conjunctivae normal Neck supple, no JVD, thyroid normal and no carotid bruits General: trachea midline Resp normal respiratory effort, no retractions and no use of accessory muscles Resp Narrative: Inspiratory rales at the bases bilaterally Auscultation: Negative for rales, rhonchi or wheezes Cardio regular rate, regular rhythm, S1 normal heart sound, S2 normal heart sound, no murmurs, no rub and no gallops GI normal to inspection, nondistended, normoactive bowel sounds, soft to palpation, non-tender and non-distended Extremity no clubbing, cyanosis or edema Skin no rashes or lesions noted General Skin Exam: no breakdown Neuro oriented x3, CN's II-XII intact bilaterally, moves all extremities, no focal motor deficits and no sensory deficits noted Sensorium / Orientation: awake, alert, oriented to person and oriented to place Speech: speech normal Psych affect normal Assessment & Plan Assessment/Plan (1) Paroxysmal atrial fibrillation: (2) Acute exacerbation of CHF (congestive heart failure): PLAN: Plan 1. Acute exacerbation of diastolic congestive heart failure-patient will remain on IV diuretics at this time, she is being seen by cardiology, she was also seen by critical care today. 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-patient's labs will be monitored as needed, complicates care, medical course, recovery, and prognosis, patient's Amaryl was reordered #6 non-ST elevation [place]-type II, supportive treatment at this time, no catheterization is planned #7 type 2 diabetes-continue to monitor blood sugars, sliding scale insulin will be used as needed #8 Paroxysmal atrial fibrillation-patient is currently on apixaban and rate limiting meds #9 Hypercoagulable state due to paroxysmal atrial fibrillation-patient is on apixaban Total clinical time spent by myself addressing the patient's medical problems, reviewing all of the data, and collaborating with patient's care team: 38 minutes Charges/Coding Visit Charges Inpatient E&M: 30649 Subs Hosp L2
[2022-09-18] MEDS: amLODIPine 10 MG Tablet PO (22:18)
[2022-09-18] MEDS: Atorvastatin Calcium 10 MG Tablet PO (22:18)
[2022-09-18] MEDS: Metoprolol(XL)Succ 25 MG Tablet PO (22:18)
[2022-09-18] MEDS: Glimepiride 2 MG Tablet PO (22:18)
[2022-09-18 23:45] LABS: Bedside Glucose 152 mg/dL (74-106)
[2022-09-19 04:35] VITALS: BP 141/71; PULSE 86; RESP 18; TEMP 36.7; O2SAT 98
[2022-09-19 06:41] LABS: Anion Gap 9 (5-15); BUN 49 mg/dL (7-18); BUN/Creat Ratio 35.3 RATIO (10-20); Calcium,Total 9.1 mg/dL (8.5-10.1); Chloride 106 mmol/L (98-107); Creatinine, Serum 1.39 mg/dL (0.55-1.02); EST Glomerular Filtration Rate 38 mL/min (>60); Est Glom Filt Rate - Afr Amer 46 mL/min (>60); Estimated Creatinine Clearance 21.11 ml/min; Glucose 115 mg/dL (74-106); Potassium 3.5 mmol/L (3.5-5.1); Sodium Level 140 mmol/L (136-145)
[2022-09-19 07:15] LABS: Bedside Glucose 106 mg/dL (74-106)
[2022-09-19 08:10] VITALS: O2SAT 98
[2022-09-19 09:01] VITALS: BP 127/62; PULSE 85; RESP 18; TEMP 37.2; O2SAT 98
[2022-09-19 09:05] VITALS: BP 127/62; PULSE 85
[2022-09-19] MEDS: APIXABAN 2.5 MG TABLET (WCH) PO (09:05)
[2022-09-19] MEDS: Losartan Potassium 50 MG Tablet PO (09:05)
[2022-09-19] MEDS: Glimepiride 2 MG Tablet PO (09:05)
[2022-09-19] MEDS: Clopidogrel Bisulfate 75 MG Tablet PO (09:05)
[2022-09-19] MEDS: Metoprolol(XL)Succ 100 MG Tablet PO (09:05)
[2022-09-19] MEDS: Spironolactone 25 MG Tablet PO (09:05)
[2022-09-19] MEDS: Furosemide 40 MG/4 ML Vial IV (09:06)
[2022-09-19] MEDS: Aspirin 81 MG TAB.CHEW PO (09:06)
[2022-09-19 10:00] VITALS: O2SAT 87; O2SAT 91; O2SAT 92
--- NOTE | 2022-09-19 10:29 | PN.CC_ITS ---
Assessment & Plan Assessment/Plan (1) Acute hypoxemic respiratory failure: PLAN: Plan RECOMMENDATIONS: 1. Continue to wean supplemental oxygen to maintain saturations at or above 90%. 2. Continue diuresis as tolerated by hemodynamics and renal function. 3. Agree with monitoring clinically. No antibiotics indicated 4. Encourage incentive spirometer use and mobilize patient as tolerated. 5. Patient encouraged to check daily weights, maintain low-salt diet and keep saturations above 90 at all times 6. Okay to discharge with follow-up with nurse practitioner 2 weeks after discharge IMPRESSIONS: 1. Acute hypoxemic respiratory failure Likely multifactorial in etiology with decompensated heart failure/cor pulmonale contributing. Patient with high salt load recently leading to fluid retention. Patient likely has an element of cor pulmonale with pulmonary artery pressures over 80. Stressed to the patient and her about the importance of using daily weights, low-salt diet and supplemental oxygen to maintain lower pulmonary artery pressures to avoid future complications. 2. Elevated troponin Clinical suspicion for elevation of troponin secondary to global hypoxia r elated to problem #1. Cardiology is following. If patient does have a left heart catheterization, right heart catheterization would be helpful. Patient is at risk for multiple types of pulmonary hypertension and right heart catheterization would be required for characterization 3. History of diabetes mellitus/paroxysmal atrial fibrillation/hypertension/coronary artery disease/chronic kidney disease Complicates care, management, recovery and prognosis. Continue home medications as indicated. Subjective Subjective Patient did well overnight. No acute issues are reported. Patient hoping to go home today. Patient is not reporting any current chest pain and feels she is back to her baseline exercise tolerance. No coughing reported. Objective Data Objective Data Vital Signs: Vital Signs Temp Pulse Resp BP Pulse Ox O2 Del Method O2 Flow Rate 37.2 C 85 18 127/62 H 92 Nasal Cannula 0 09/19/22 09:01 09/19/22 09:05 09/19/22 09:01 09/19/22 09:05 09/19/22 10:00 09/19/22 09:01 09/19/22 10:00 FiO2 40 09/16/22 19:21 Oxygen Flow Rate (L/min) [ 2 AMBULATING with Oxygen #2] Oxygen Flow Rate (L/min) [ 0 AMBULATING with Oxygen #1] Oxygen Flow Rate (L/min) [At 0 REST on Room Air] Oxygen Flow Rate (L/min) 2 Oxygen Delivery Method Nasal Cannula Weight: 65.1 kg Body Mass Index (BMI) 27.8 Intake & Output: Intake and Output for Last 24 Hours 09/17/22 09/18/22 09/19/22 23:59 23:59 23:59 Intake Total 880 / 880 1280 / 1520 360 / 360 Balance 880 / 880 1280 / 1520 360 / 360 Lab / Micro Data Attestation: I reviewed the patient's lab results. Result Diagrams: 09/18/22 07:08 09/19/22 05:43 Labs: Laboratory Results - last 24 hr 09/18/22 11:04: POC Glucose 226 H 09/18/22 15:58: POC Glucose 355 H 09/18/22 22:15: POC Glucose 152 H 09/19/22 05:43: Sodium 140, Potassium 3.5, Chloride 106, Carbon Dioxide 25.0, Anion Gap 9, BUN 49 H, Creatinine 1.39 H, Estim Creat Clear Calc 21.11, Est GFR (MDRD) Af Amer 46 L, Est GFR (MDRD) Non-Af 38 L, BUN/Creatinine Ratio 35.3 H, Glucose 115 H, Calcium 9.1 09/19/22 06:42: POC Glucose 106 Micro: Microbiology 09/15/22 05:08 Mucosa - Nose Respiratory Panel (PCR) - Final Physical Exam Const alert, oriented x3 and no apparent distress General Appearance: cooperative; Negative for lethargic HEENT normocephalic and head/scalp atraumatic Eyes PERRL, EOMs intact bilaterally, conjunctivae normal and no scleral icterus Neck General: normal visual inspection Chest inspection of chest normal Resp normal respiratory effort Auscultation: rales bilateral (Improving) base and diminished lung sounds; Negative for rhonchi or wheezes Cardio regular rate, regular rhythm, S1 normal heart sound, S2 normal heart sound, no rub and no gallops Jugular Venous Distention: JVD Heart Sounds: murmur systolic GI normal to inspection, nondistended, normoactive bowel sounds Extremity normal capillary refill and no pedal edema Skin no rashes or lesions noted Neuro oriented x3 and CN's II-XII intact bilaterally Psych cooperative and affect normal Charges/Coding Visit Charges Inpatient E&M: 42538 Subs Hosp L2
--- NOTE | 2022-09-19 11:04 | DCINST_ITS ---
Discharge Instructions Diet Discharge Diet: No restrictions Activity Discharge Activity: Return to Normal Activity Weight Bearing Status: Full weight bearing Follow Up Care Test Results: Test results from this visit will be discussed in further detail at your follow- up appointment, if applicable. Discharge Plan Admission Admit Date/Time: 09/15/22 06:21 Primary Reason for Your Visit: Congestive heart failure Attending Provider: Ventura Hernandez Primary Care Provider: Care Physician,No Primary Consulting Providers: Braenna Guerra ; Ricki Duran ; Rboert Gastelum Instructions Additional Instructions / Restrictions: Get a BMP (lab work) done next Thursday at the hospital here Use oxygen at 2 L/min via nasal cannula when ambulating Follow-up within 1 week at [facility] Discharge Orders/Prescriptions Prescriptions: New atorvastatin 10 mg Tablet 10 mg PO QHS Qty: 30 0RF spironolactone 25 mg Tablet 25 mg PO DAILY Qty: 30 0RF furosemide [Lasix] 40 mg tablet 40 mg PO UD Qty: 90 0RF Rx Instructions: two every morning, one every evening at 6 pm Continued Eliquis 2.5 mg tablet 2.5 mg PO BID Hold Instructions: Resume on 10/17/21. aspirin 81 MG tablet,chewable 81 mg PO DAILY@0800 Label Comments: heart health amlodipine 10 MG tablet 10 mg PO QHS Label Comments: BLOOD PRESSURE/HEART losartan 50 mg tablet 50 mg PO BID glimepiride 2 mg tablet 2 mg PO DAILY Rx Instructions: 2MG in AM and 1mg QHS glimepiride 1 mg tablet 1 mg PO QHS metoprolol succinate 25 mg tablet extended release 24 hr 25 mg PO QHS metoprolol succinate 100 mg Tablet Extended Release 24 Hr 100 mg PO DAILY clopidogrel 75 mg Tablet 75 mg PO DAILY Discontinued potassium chloride 20 mEq tablet extended release 20 meq PO DAILY Qty: 30 1RF furosemide 40 mg tablet 40 mg PO BIDCM Qty: 60 1RF Referrals / Follow Up: Herberth Barba MD [Med Staff - Active Staff] - 10/02/22 2:45 pm () Disposition Disposition (needs filled in before D/C Order can be placed): Home, Self Care
[2022-09-19] MEDS: Insulin Lispro 100 UNIT/ML INSULN.PEN SC (11:36)
--- NOTE | 2022-09-19 11:46 | PCM.DC.SUM ---
Providers Date of Admission: 09/15/22 Date of Discharge: 09/19/22 Primary Care Physician: Lola Primary Care Phys Consultations 09/15/22 07:58 Consult: Cardiology Routine Consulting Provider: Ricki Duran Reason for Consult: CHF Exac, Resp Failure, NSTEMI EMERGENT Consult: No Notified: Yes Date Notified: 09/15/22 Time Notified: 06:23 Method of Notification: Verbal 09/15/22 20:40 Consult: Tinning Equipment Tender / Pulmonary Medicine Routine Consulting Provider: Robert Gastelum Reason for Consult: Resp failure, CHF Exac, on BIPAP EMERGENT Consult: No Notified: Yes Date Notified: 09/15/22 Time Notified: 19:49 Method of Notification: Text Reason For Visit: RESP FAILURE, CHF EXACERBATION Diagnosis Discharge Diagnosis (1) Acute hypoxemic respiratory failure: Status: Resolved Code(s): J96.01 - Acute respiratory failure with hypoxia Plan 1. Acute exacerbation of diastolic congestive heart failure-patient will remain on IV diuretics at this time, she is being seen by cardiology, she was also seen by critical care today. 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-patient's labs will be monitored as needed, complicates care, medical course, recovery, and prognosis, patient's Amaryl was reordered #6 non-ST elevation NV-type II, supportive treatment at this time, no catheterization is planned #7 type 2 diabetes-continue to monitor blood sugars, sliding scale insulin will be used as needed #8 Paroxysmal atrial fibrillation-patient is currently on apixaban and rate limiting meds #9 Hypercoagulable state due to paroxysmal atrial fibrillation-patient is on apixaban Total clinical time spent by myself addressing the patient's medical problems, reviewing all of the data, and collaborating with patient's care team: 38 minutes Medications at Discharge Home Medications aspirin 81 mg chewable tablet 81 mg PO DAILY@0800 BLOOD THINNER 04/21/17 amlodipine 10 mg tablet 10 mg PO QHS BP 04/28/17 apixaban 2.5 mg tablet (Eliquis) 2.5 mg PO BID BLOOD THINNER 09/07/19 glimepiride 1 mg tablet 1 mg PO QHS SUGAR 06/19/22 glimepiride 2 mg tablet 2 mg PO DAILY SUGAR 06/19/22 losartan 50 mg tablet 50 mg PO BID BP 06/19/22 metoprolol succinate 25 mg tablet,extended release 24 hr 25 mg PO QHS hr 06/19/22 clopidogrel 75 mg tablet 75 mg PO DAILY 07/30/22 metoprolol succinate 100 mg tablet,extended release 24 hr 100 mg PO DAILY 07/30/22 atorvastatin 10 mg tablet 10 mg PO QHS #30 tabs 09/19/22 furosemide 40 mg tablet (Lasix) 40 mg PO UD #90 tabs 09/19/22 spironolactone 25 mg tablet 25 mg PO DAILY #30 tabs 09/19/22 Hospital Course Operations None Procedures 2-D Echocardiogram Summary of Care Provided Minutes Spent on Discharge: 32 Hospital Course: This 87-year-old white female was seen in the emergency room at [facility] with complaints of shortness of breath, patient was on supplemental oxygen at home on ambulation at 2 L. Work-up in the emergency room included a chest x-ray which showed increased bilateral lung markings suspicious for CHF, beta nitric peptide was elevated at 945, creatinine was elevated 1.52 and BUN was 42. Patient's white blood cell count was elevated at 16.8. Patient was transitioned in the ER to BiPAP therapy, she was given IV diuretics and she was admitted to PCU. Patient's respiratory status declined during her first hospital stay and she was transferred briefly to ICU and placed on BiPAP and monitored closely. Patient was seen in consultation by cardiology, echocardiogram was performed which showed a normal ejection fraction. Patient's cardiac enzymes elevated and she was felt to have a non-STEMI but cardiology did not want to perform a cardiac catheterization, it was recommended that the patient just have IV diuresis and close monitoring. Patient was subsequently transferred to PCU, on 09/19/2022, patient was seen and examined: On examination she appeared in good health and spirits, she does not appear to be in any distress. Vital signs as documented. Skin warm and dry and without overt rashes. Neck without JVD, thyroid appears normal, trachea is midline, neck is supple. Lungs-inspiratory rales were noted at the bases bilaterally, normal air movement was noted. Heart exam notable for regular rhythm, normal sounds and absence of murmurs, rubs or gallops. Abdomen unremarkable and without evidence of organomegaly, masses, or abdominal aortic enlargement, bowel sounds are present in all 4 quadrants, no abdominal tenderness was noted. Extremities nonedematous, no cyanosis was noted, no clubbing was noted. Neuro: Cranial nerves II through XII are grossly intact, no focal motor deficits were noted, sensation to light touch and pinprick is intact, motor exam 5/5 throughout. Psych: Patient is alert and oriented x3, she does not appear anxious or depressed, she does not appear agitated. On 09/19/2022, patient was seen and examined and felt to be stable for discharge home, she required 2 L of nasal cannula oxygen on ambulation only and none at rest. Weight / BMI Weight Weight: 65.1 kg Body Mass Index (BMI) 27.8 ABG / Lab / Microbiology Data Result Diagrams: 09/18/22 07:08 09/19/22 05:43 Laboratory: Laboratory Results - last 24 hr 09/18/22 15:58: POC Glucose 355 H 09/18/22 22:15: POC Glucose 152 H 09/19/22 05:43: Sodium 140, Potassium 3.5, Chloride 106, Carbon Dioxide 25.0, Anion Gap 9, BUN 49 H, Creatinine 1.39 H, Estim Creat Clear Calc 21.11, Est GFR (MDRD) Af Amer 46 L, Est GFR (MDRD) Non-Af 38 L, BUN/Creatinine Ratio 35.3 H, Glucose 115 H, Calcium 9.1 09/19/22 06:42: POC Glucose 106 Microbiology: Microbiology 09/15/22 05:08 Mucosa - Nose Respiratory Panel (PCR) - Final D/C Instructions Discharge Diet: No restrictions Weight Bearing Status: Full weight bearing Meaningful Use Info Meaningful Use Diagnoses (Choose all that apply): AMI and CHF AMI/Post PCI/Angioplasty Aspirin given w/in 24hrs of arrival?: Yes ASA at discharge?: Yes Antiplatelet Therapy at Discharge:: Yes Statins at discharge?: Yes Carlos/ARB at discharge?: Yes Beta Jamel at discharge?: Yes Done w/ Acute NV measure.: Yes Documented LVEF (%): 65 CHF CARLOS/ARB ordered at discharge?: Yes Documented LVEF (%): 65 Discharge Plan Admission Admit Date/Time: 09/15/22 06:21 Primary Reason for Your Visit: Congestive heart failure Attending Provider: Ventura Hernandez Primary Care Provider: Care Physician,No Primary Consulting Providers: Breanna Guerra ; Ricki Duran ; Robert Gastelum Instructions Additional Instructions / Restrictions: Get a BMP (lab work) done next Thursday at the hospital here Use oxygen at 2 L/min via nasal cannula when ambulating Follow-up within 1 week at [facility] Orders/Prescriptions Prescriptions: New atorvastatin 10 mg Tablet 10 mg PO QHS Qty: 30 0RF spironolactone 25 mg Tablet 25 mg PO DAILY Qty: 30 0RF furosemide [Lasix] 40 mg tablet 40 mg PO UD Qty: 90 0RF Rx Instructions: two every morning, one every evening at 6 pm Continued Eliquis 2.5 mg tablet 2.5 mg PO BID Hold Instructions: Resume on 10/17/21. aspirin 81 MG tablet,chewable 81 mg PO DAILY@0800 Label Comments: heart health amlodipine 10 MG tablet 10 mg PO QHS Label Comments: BLOOD PRESSURE/HEART losartan 50 mg tablet 50 mg PO BID glimepiride 2 mg tablet 2 mg PO DAILY Rx Instructions: 2MG in AM and 1mg QHS glimepiride 1 mg tablet 1 mg PO QHS metoprolol succinate 25 mg tablet extended release 24 hr 25 mg PO QHS metoprolol succinate 100 mg Tablet Extended Release 24 Hr 100 mg PO DAILY clopidogrel 75 mg Tablet 75 mg PO DAILY Discontinued potassium chloride 20 mEq tablet extended release 20 meq PO DAILY Qty: 30 1RF furosemide 40 mg tablet 40 mg PO BIDCM Qty: 60 1RF Referrals / Follow Up: Ventura Baron DO [Med Staff - Raise Drill Operator] - 09/24/22 11:20 am Herberth Barba MD [Med Staff - Active Staff] - 10/02/22 2:45 pm () Disposition Disposition (needs filled in before D/C Order can be placed): Home, Self Care Charges/Coding Visit Charges Inpatient E&M: 98224 Disch Hosp >30min
[2022-09-19 12:06] LABS: Bedside Glucose 289 mg/dL (74-106)
--- NOTE | 2022-09-19 12:30 | CASEMGMT ---
Patient had order for discharge. BROWN CM in room to discuss discharge plans for patient. Patient maintaining on her home oxygen of 2lpm with exertion. Patient states she will go home with with resumption of CCN and outpatient therapy at [facility]. has portable tank from home with him for discharge. Patient and had no further questions or concerns at this time.
--- NOTE | 2022-09-19 14:41 | PHA.DC.MR ---
Pharmacy Service has performed discharge medication reconciliation for this patient. The patient's discharge medication list was reviewed for discrepancies and discrepancies were resolved. Medication education papers prepared but patient was discharged before I was able to counseling center director. Home Medications aspirin 81 mg chewable tablet 81 mg PO DAILY@0800 BLOOD THINNER 04/21/17 amlodipine 10 mg tablet 10 mg PO QHS BP 04/28/17 apixaban 2.5 mg tablet (Eliquis) 2.5 mg PO BID BLOOD THINNER 09/07/19 glimepiride 1 mg tablet 1 mg PO QHS SUGAR 06/19/22 glimepiride 2 mg tablet 2 mg PO DAILY SUGAR 06/19/22 losartan 50 mg tablet 50 mg PO BID BP 06/19/22 metoprolol succinate 25 mg tablet,extended release 24 hr 25 mg PO QHS hr 06/19/22 clopidogrel 75 mg tablet 75 mg PO DAILY 07/30/22 metoprolol succinate 100 mg tablet,extended release 24 hr 100 mg PO DAILY 07/30/22 atorvastatin 10 mg tablet 10 mg PO QHS #30 tabs 09/19/22 furosemide 40 mg tablet (Lasix) 40 mg PO UD #90 tabs 09/19/22 spironolactone 25 mg tablet 25 mg PO DAILY #30 tabs 09/19/22
== END 2022-09-19 14:31 | disposition home or self-care (01) | DRG 280 ==
LOC: ED 06:22 → PCU 06:44 → ICU 20:36 → PCU 09-16 18:43
PROVIDERS: Internal Medicine Critical Care Medicine; Admitting Provider Family Medicine; Emergency Provider Emergency Medicine; Visit Provider Internal Medicine
DX: I13.0 Hypertensive heart and chronic kidney disease with heart failure and stage 1 through stage 4 chronic kidney disease, or unspecified chronic kidney disease (principal); I21.A1 Myocardial infarction type 2; J96.01 Acute respiratory failure with hypoxia; I50.33 Acute on chronic diastolic (congestive) heart failure; D68.59 Other primary thrombophilia; I27.20 Pulmonary hypertension, unspecified; I27.81 Cor pulmonale (chronic); E11.22 Type 2 diabetes mellitus with diabetic chronic kidney disease; I48.0 Paroxysmal atrial fibrillation; N18.32 Chronic kidney disease, stage 3b; I25.5 Ischemic cardiomyopathy; I25.10 Atherosclerotic heart disease of native coronary artery without angina pectoris; E78.5 Hyperlipidemia, unspecified; I34.0 Nonrheumatic mitral (valve) insufficiency; Z79.84 Long term (current) use of oral hypoglycemic drugs; Z79.82 Long term (current) use of aspirin; Z79.02 Long term (current) use of antithrombotics/antiplatelets; Z79.01 Long term (current) use of anticoagulants; Z95.5 Presence of coronary angioplasty implant and graft; I34.81 Nonrheumatic mitral (valve) annulus calcification; Z95.2 Presence of prosthetic heart valve
CPT/HCPCS: 36415; 36600; 71045; 80048; 80053; 80061; 80069; 82803; 82962; 83605; 83735; 83880; 84145; 84443; 84484; 85025; 87633; 93005; 93306; 94002; 94003; 94668; 94762; 97110; 97162; 97166; 97530; 97535; 97802; 99285; A4216; J1940

== ENCOUNTER → 2022-09-22 | Outpatient (CLI) | payer MEDICARE, OTHER, SELFPAY ==
[2022-09-22 13:08] LABS: Anion Gap 11 (5-15); BUN 61 mg/dL (7-18); BUN/Creat Ratio 30.5 RATIO (10-20); Calcium,Total 9.6 mg/dL (8.5-10.1); Chloride 97 mmol/L (98-107); EST Glomerular Filtration Rate 25 mL/min (>60); Est Glom Filt Rate - Afr Amer 30 mL/min (>60); Glucose 397 mg/dL (74-106); Potassium 4.7 mmol/L (3.5-5.1); Sodium Level 134 mmol/L (136-145)
== END | disposition home or self-care (01) ==
LOC: LAB 11:13
PROVIDERS: PCP Family Medicine; Referring Provider Internal Medicine; Visit Provider Internal Medicine
DX: I27.20 Pulmonary hypertension, unspecified (principal); I50.31 Acute diastolic (congestive) heart failure
CPT/HCPCS: 36415; 80048

== ENCOUNTER 2022-10-02 19:12 | Inpatient (IN) | payer MEDICARE, OTHER, SELFPAY ==
[2022-10-02 19:14] VITALS: BP 133/46; PULSE 76; RESP 14; TEMP 36.6; O2SAT 99; BMI 24.7
--- NOTE | 2022-10-02 20:37 | EDS_ITS ---
HPI History of Present Illness Chief Complaint: Abn Labs Detail of Chief Complaint: Sent in by primary care physician for abnormal labs. Informant: patient and spouse/S.O. Onset/Context/Timing Onset: Today Narrative Narrative: 87-year-old female history of aortic stenosis, chronic kidney disease, diabetes, cardiomyopathy, CHF and [place] on Eliquis and Lasix. Recently hospitalized for congestive heart failure and discharged on September 19 about 2 weeks ago. Had labs done today as an outpatient had an elevated potassium of 6.3 and a BUN that went from 2-3.95. She was sent in by her primary care physician for further evaluation. She said she does not feel bad. She has had some mild loose stools. And just felt weak. However she states she would not of came into the ER unless her physician called her and told her to come in. 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) Hyperlipidemia Hypertension associated with diabetes Hypoxia Ischemic cardiomyopathy Mitral annular calcification Nonrheumatic aortic (valve) stenosis Nonrheumatic mitral (valve) insufficiency Normocytic anemia Paroxysmal atrial fibrillation Renal artery stenosis Home Medications aspirin 81 mg chewable tablet 81 mg PO DAILY@0800 BLOOD THINNER 04/21/17 [History Last Taken 06/18/22] amlodipine 10 mg tablet 10 mg PO QHS BP 04/28/17 [History Last Taken 06/18/22] apixaban 2.5 mg tablet (Eliquis) 2.5 mg PO BID BLOOD THINNER 09/07/19 [History Last Taken 06/18/22] glimepiride 1 mg tablet 1 mg PO QHS SUGAR 06/19/22 [History Last Taken 06/18/22] glimepiride 2 mg tablet 2 mg PO DAILY SUGAR 06/19/22 [History Last Taken 06/18/22] losartan 50 mg tablet 50 mg PO BID BP 06/19/22 [History Last Taken 06/18/22] metoprolol succinate 25 mg tablet,extended release 24 hr 25 mg PO QHS hr 06/19/22 [History Last Taken 06/18/22] clopidogrel 75 mg tablet 75 mg PO DAILY 07/30/22 [History Last Taken Unknown] metoprolol succinate 100 mg tablet,extended release 24 hr 100 mg PO DAILY 07/30/22 [History Last Taken Unknown] atorvastatin 10 mg tablet 10 mg PO QHS #30 tabs 09/19/22 [Rx Last Taken Unknown] spironolactone 25 mg tablet 25 mg PO DAILY #30 tabs 09/19/22 [Rx Last Taken Unknown] furosemide 40 mg tablet 40 mg PO QHS 10/02/22 [History Last Taken Unknown] furosemide 40 mg tablet (Lasix) 80 mg PO DAILY 10/02/22 [History Last Taken Unknown] insulin glargine 100 unit/mL (3 mL) subcutaneous pen (Lantus Solostar U-100 Insulin) 10 unit subcut DAILY 10/02/22 [History Last Taken Unknown] Allergy/AdvReac Type Severity Reaction Status Date / Time No Known Allergies Allergy Verified 10/02/22 19:14 Family History Sister Asthma Breast cancer Hypertension Hyperlipidemia Melanoma Father , From old age per patient. Denies specific medical problems. No problems noted. Mother , From old age per patient. Denies specific medical problems. No problems noted. Surgical History History of appendectomy History of coronary angioplasty (09/18/21) History of left heart catheterization (04/2017) History of percutaneous transluminal coronary angioplasty (~09/18/21) Social History household members: spouse Smoking Status: Never smoker alcohol intake: never substance use type: does not use caffeine: Yes Type: coffee Number of servings: 1 ROS ROS ED ROS Narrative Weakness. Loose stools. Review of Systems ROS Unobtainable: Denies due to encephalopathy Constitutional Constitutional ED: Denies chills or fever(s) Eyes Eyes: Denies blurry vision ENT ENT ED: Denies ear pain Cardiovascular Cardiovascular: Denies chest pain Respiratory/Chest Respiratory/Chest: Denies cough Gastrointestinal Gastrointestinal: Denies abdominal pain Genitourinary Genitourinary ED: Denies dysuria Musculoskeletal Musculoskeletal: Denies arthralgias Integumentary Denies abscess Neurologic Neurologic: Denies headache(s) Psychiatric Psychiatric: Denies anxiety Endocrine Endocrinology: Denies cold intolerance Hematologic/Lymphatic Hematologic/Lymphatic: Reports none Allergic/Immunologic Allergic/Immunologic ED: Denies mouth swelling or tongue swelling EXAM Physical Exam Narrative Exam Narrative: 87-year-old female sitting upright in bed. at bedside. Vital signs are stable afebrile. She is on 2 L nasal cannula her pulse ox is 99%. She does not look septic or toxic. She does look mildly dehydrated. H EENT exam mild dry mucous membranes. Pupils round reactive light. No facial droop. Normal speech. Neck nontender no JVD. Lungs clear to auscultation bilaterally. Heart regular rhythm rate about 75 no murmur. Abdomen soft nontender normal bowel sounds no peritoneal signs. Moving all 4 extremities. Nontender no edema. Neurologically she is awake alert with no focal motor deficits. Const Vital Signs: 10/02/22 19:14 10/02/22 20:28 Temperature 98 F Temperature Source Temporal Pulse Rate 76 Respiratory Rate 14 Respiratory Effort Normal Non-Labored Respiratory Pattern Normal Blood Pressure 133/46 H Blood Pressure Mean 75 Pulse Ox 99 Oxygen Delivery Method Nasal Cannula Oxygen Flow Rate (L/min) 2 Positive well nourished and well developed; Negative for obese, cachectic, contractures or unkempt General Appearance ED: well developed and NAD; Negative for unkempt, cachectic, contractures, cyanotic or diaphoretic Nutritional Appearance: Negative for cachectic or obese HEENT Reports dry mucous membranes; Denies moist mucous membranes Negative for tenderness Mouth ED: Yes dry mucous membranes Mouth: dry mucous membranes Eyes PERRL and EOMs intact bilaterally General Eye ED: Negative for pale conjunctiva or scleral icterus Neck no lymphadenopathy, supple and no JVD General: Negative for tenderness Chest Wall inspection of chest normal and palpation of chest normal Chest: Negative for other Resp normal respiratory effort and clear to auscultation bilaterally Effort and Inspection: Negative for retractions Auscultation: Negative for rales, rhonchi or wheezes Cardio regular rate, regular rhythm, S1 normal heart sound and S2 normal heart sound; Negative for no murmurs Rate: other Other Details: 4/6 systolic ejection murmur. GI normal to inspection, nondistended, normoactive bowel sounds, non-tender, non- distended and no masses Auscultation: normoactive bowel sounds Palpation: soft; Negative for tender or guarding Back/Spine no CVA tenderness General Back: Negative for CVA tenderness Cervical Spine: Negative for cervical spine tenderness Thoracic Spine / Upper Back: Negative for thoracic spinal tenderness Extremity normal to inspection General Extremety ED: Negative for edema or tenderness General Extremity: Negative for edema Neuro oriented x3 and CN's II-XII intact bilaterally Sensorium / Orientation: alert; Negative for orientation impaired, lethargic or stuporous Motor Exam: strength 5/5 throughout Psych mental status grossly normal Appearance: Negative for unkempt Attitude: No agitated Mood & Affect: Negative for depressed, anxious or tearful Skin no rashes or lesions noted and no wounds Lesions: No lesion noted Rashes: No rashes noted Trauma: Negative for abrasion Wounds: Negative for wounds noted MDM MDM MDM Narrative Medical decision making narrative: 87 years generalized weakness sent in for acute kidney injury and hyperkalemia and hyperglycemia. I suspect she has had overdiuresis due to her recent increase of her Lasix due to her recent admission for CHF. She will be treated with IV fluid bolus of 1 L, and treated for hyperkalemia with albuterol aerosol and insulin. Also calcium gluconate. Labs and EKG will be obtained. I suspect she will need to be admitted to the hospital. At this time I do not think she needs any imaging. I did review her recent labs. Her BUN went from 2-3.95. Her potassium was 6.3 and her glucose was 643 down earlier today. Repeat exam patient is doing well at 9:38 PM. She has received a liter of fluid. They are getting ready to do the aerosol treatment. She is getting the calcium gluconate. And insulin. I went over labs with her and her . They are comfortable with her being admitted. I have the hospitalist on page to discuss admission. Patient be admitted to PCU due to her hyperkalemia. Lab Data Attestation: I reviewed the patient's lab results. Lab results narrative: CBC shows a white count of 10.2. H&H of 10.3 and 31.5. Platelets 300. Electrolytes show sodium 125. Potassium of 5.9 which is actually better than 6.3 earlier today. Anion gap is 15. BUN is 136 creatinine 4.08 which is significantly higher than her prior creatinine of around 2. Glucose is 563. Serum ketones are negative. I did review the patient's old labs for comparison. Labs: Laboratory Results - last 24 hr 10/02/22 10/02/22 10/02/22 20:22 20:22 20:22 WBC 10.2 RBC 3.84 L Hgb 10.3 L Hct 31.5 L MCV 82.0 MCH 26.8 L MCHC 32.7 RDW Std Deviation 47.7 H RDW Coeff of Jesi 15.9 H Plt Count 300 MPV 10.4 Immature Gran % (Auto) 0.400 Neut % (Auto) 75.7 H Lymph % (Auto) 10.6 L [place] % (Auto) 10.7 H Eos % (Auto) 2.2 Baso % (Auto) 0.4 Absolute Neuts (auto) 7.7 Absolute Lymphs (auto) 1.08 Nucleated RBC % 0 Sodium 125 L Potassium 5.9 H Chloride 87 L Carbon Dioxide 23.0 Anion Gap 15 BUN 136 H* Creatinine 4.08 H Estim Creat Clear Calc 7.19 Est GFR (MDRD) Af Amer 13 L Est GFR (MDRD) Non-Af 11 L BUN/Creatinine Ratio 33.3 H Glucose 563 H* Calcium 9.1 Acetone Level NEGATIVE Critical Care Time Critical Care Time: Yes Critical care time (excluding procedures): 30-74 minutes, Including time spent:, Discussing w/Patient &/or Family/Teletype Or [employer] Keyboard Operator, Discussing w/Consultants, Arranging Admission or Transfer, Performing Direct Patient Care at Bedside and - (31 minutes.) Discharge Plan Triage Chief Complaint: Abn Labs ED Provider: Rene Fine Dx/Rx/DC Orders Clinical Impression: Acute kidney injury, Acute dehydration, Acute hyperkalemia, Hyperglycemia due to diabetes mellitus, Electrolyte abnormality, History of chronic CHF, History of renal insufficiency Prescriptions: No Action Eliquis 2.5 mg tablet 2.5 mg PO BID Hold Instructions: Resume on 10/17/21. furosemide [Lasix] 40 mg tablet 80 mg PO DAILY Rx Instructions: 40 mg orally take 2 tabs in the am and 2 taba in the pm; aspirin 81 MG tablet,chewable 81 mg PO DAILY@0800 Label Comments: heart health amlodipine 10 MG tablet 10 mg PO QHS Label Comments: BLOOD PRESSURE/HEART losartan 50 mg tablet 50 mg PO BID glimepiride 2 mg tablet 2 mg PO DAILY Rx Instructions: 2MG in AM and 1mg QHS glimepiride 1 mg tablet 1 mg PO QHS metoprolol succinate 25 mg tablet extended release 24 hr 25 mg PO QHS metoprolol succinate 100 mg Tablet Extended Release 24 Hr 100 mg PO DAILY clopidogrel 75 mg Tablet 75 mg PO DAILY atorvastatin 10 mg Tablet 10 mg PO QHS Qty: 30 0RF spironolactone 25 mg Tablet 25 mg PO DAILY Qty: 30 0RF furosemide 40 mg tablet 40 mg PO QHS Label Comments: TAKE TWO TABLETS BY MOUTHCEVERY MORNING AND 1 TABLET IN THE EVENING AT 6PM insulin glargine [Lantus Solostar U-100 Insulin] 100 unit/mL (3 mL) insulin pen 10 unit SUBCUT DAILY Label Comments: INJECT 10 UNITS SUBCUTANEOUSLY ONCE DAILY Primary Care Provider: Ventura Baron Referrals: Ventura Baron DO [Primary Care Provider] - Disposition Disposition: Acute Care Hospital [facility]
[2022-10-02] MEDS: 0.9% Normal Saline 1,000 ML 999 ML IV (20:44)
[2022-10-02 20:58] LABS: Absolute Lymphocyte Count 1.08 X10^3/uL (0.83-4.51); Absolute Neutrophil Count 7.7 X10^3/uL (2.0-7.7); Basophil# 0.04 X10^3/uL; Basophil% 0.4 % (0-1); Eosinophil# 0.22 X10^3/uL; Eosinophils% 2.2 % (0-5); Hematocrit 31.5 % (37-47); Hemoglobin 10.3 g/dL (12.0-15.0); Lymphocyte # 1.08 X10^3/ul (0.83-4.51); Lymphocyte % 10.6 % (19-41); Mean Corp Hgb Conc 32.7 g/dL (32-36); Mean Corpuscular Hgb 26.8 pg (27.0-32.0); Mean Platelet Vol. 10.4 fl (6.2-12.0); Monocyte# 1.09 X10^3/uL; Monocyte% 10.7 % (0-10); NRBC Flagged by Analyzer 0 % (0-5); Neutrophil # 7.69 X10^3/uL (2.7-7.7); Neutrophil % 75.7 % (47-70); Platelet Count 300 K/mm3 (150-450); RBC Distribution Width CV 15.9 % (11.6-14.6); RBC Distribution Width SD 47.7 fl (35.1-43.9); Red Blood Count 3.84 M/mm3 (4.2-5.4); White Blood Count 10.2 K/mm3 (4.4-11.0)
[2022-10-02 21:20] LABS: Anion Gap 15 (5-15); BUN 136 mg/dL (7-18); BUN/Creat Ratio 33.3 RATIO (10-20); Calcium,Total 9.1 mg/dL (8.5-10.1); Chloride 87 mmol/L (98-107); Creatinine, Serum 4.08 mg/dL (0.55-1.02); EST Glomerular Filtration Rate 11 mL/min (>60); Est Glom Filt Rate - Afr Amer 13 mL/min (>60); Estimated Creatinine Clearance 7.19 ml/min; Glucose 563 mg/dL (74-106); Potassium 5.9 mmol/L (3.5-5.1); Sodium Level 125 mmol/L (136-145)
[2022-10-02] MEDS: Calcium Gluconate IV 3 GM in Syringe 1 EACH IV (21:39)
[2022-10-02 21:42] VITALS: BP 131/103; PULSE 90; RESP 23; O2SAT 100
[2022-10-02 21:43] VITALS: BP 137/65; PULSE 95; RESP 19; TEMP 36.4; O2SAT 99
[2022-10-02 21:47] VITALS: PULSE 96; RESP 22
[2022-10-02] MEDS: Albuterol *CONC* 2.5mg/0.5mL VIAL.NEB. 10 MG INHALATION (21:49)
[2022-10-02 23:00] VITALS: BP 117/55; PULSE 94; RESP 15; O2SAT 98
[2022-10-03] VITALS (16 sets, daily range): BP systolic 98–134; BP diastolic 48–82; PULSE 83–96; RESP 14–26; TEMP 36.5–37.2; O2SAT 95–100; BMI 24.9
[2022-10-03 00:35] LABS: Bedside Glucose 322 mg/dL (74-106)
[2022-10-03] MEDS: 0.9% Saline Lock 10 ML Syringe IV (01:12)
[2022-10-03] MEDS: 0.9% Normal Saline 1,000 ML 250 ML IV (01:12)
[2022-10-03] MEDS: Albuterol 2.5 MG/3 ML VIAL.NEB. INHALATION ×2 (01:35→03:40)
[2022-10-03 01:40] LABS: Anion Gap 15 (5-15); BUN 121 mg/dL (7-18); BUN/Creat Ratio 33.5 RATIO (10-20); Calcium,Total 9.8 mg/dL (8.5-10.1); Chloride 95 mmol/L (98-107); Creatinine, Serum 3.61 mg/dL (0.55-1.02); EST Glomerular Filtration Rate 13 mL/min (>60); Est Glom Filt Rate - Afr Amer 15 mL/min (>60); Estimated Creatinine Clearance 8.13 ml/min; Glucose 308 mg/dL (74-106); Potassium 4.7 mmol/L (3.5-5.1); Sodium Level 132 mmol/L (136-145)
--- NOTE | 2022-10-03 01:40 | RAD_ITS ---
STUDY: X-RAY CHEST REASON FOR EXAM: Female, 87 years old. History of CHF. TECHNIQUE: Single AP portable view of the chest. COMPARISON: Comparison is made with prior study dated 09/15/2022. FINDINGS: EKG electrodes are seen. The CHF has cleared. Residual increased markings in the right upper lobe suggestive of a possible residual infiltrate. Minimal increased markings in the medial aspect of the left upper lobe. There is no demonstrated pleural abnormality. Normal size heart. Prosthetic mitral valve. Calcification of the mitral valve annulus. Normal mediastinum and noble. Normal visualized pulmonary arteries. There is atherosclerotic calcification of the aortic arch with tortuosity. There are diffuse degenerative changes of the visualized thoracic spine. Normal visualized ribs, clavicles, and shoulders. There is no demonstrated abnormality of the visualized soft tissue structures of the upper abdomen. RAD/Chest 1 View (Portable) IMPRESSION: Mild increased markings in the right upper lobe as well as in the medial aspect of the left upper lobe. Further follow-up is recommended. Electronically Signed: Randolph Fallon MD at 12:13 EST ,
--- NOTE | 2022-10-03 01:46 | PCM.HP.STD ---
[facility] - General General Date of Admission: 10/03/22 Date of Service: 10/03/22 Chief Complaint: Abnormal labs HPI Narrative PHUC AIKEN, is a 87-year-old female with a history of CKD, heart failure with reduced ejection fraction, coronary artery disease status post angioplasty 09/18/2021, paroxysmal atrial fibrillation, TAVR in 2017, pulmonary hypertension, home O2, JONNY who presented 10/02/22 after her outpatient physician found abnormal labs with a potassium of 6.3 and a creatinine of 3.95 with a BUN of 132 and a glucose of 643. Patient was sent to the ED for further evaluation and reported she has no specific complaints and has not felt particularly bad and would not of come to the ED if she was not told to. Labs confirmed hyperkalemia, ANALISA, hyperglycemia and there were noted to be some peaked T waves on EKG. Hospitalist consulted for admission after patient received insulin, calcium gluconate, albuterol. In the ED patient reports feeling roughly the same and had no complaints. She reports eating and drinking well and has not had any increase in urinary frequency. Of note she was recently admitted for a heart failure exacerbation and was discharged on 09/19 with an increased Lasix dose. [facility] Medical History Aortic sclerosis Atherosclerosis of coronary artery of [place] heart without angina pectoris Bilateral carotid artery stenosis Chronic combined systolic and diastolic CHF (congestive heart failure) Chronic kidney disease (CKD) Chronic kidney disease, stage 3 Chronic venous insufficiency Diabetes mellitus Diastolic CHF History of non-ST elevation myocardial infarction (NSTEMI) (09/17/21) History of transcatheter aortic valve replacement (TAVR) (05/18/17) Hyperlipidemia Hypertension associated with diabetes Hypoxia Ischemic cardiomyopathy Mitral annular calcification Nonrheumatic aortic (valve) stenosis Nonrheumatic mitral (valve) insufficiency Normocytic anemia Paroxysmal atrial fibrillation Renal artery stenosis Home Medications aspirin 81 mg chewable tablet 81 mg PO DAILY@0800 BLOOD THINNER 04/21/17 [History Last Taken 06/18/22] amlodipine 10 mg tablet 10 mg PO QHS BP 04/28/17 [History Last Taken 06/18/22] apixaban 2.5 mg tablet (Eliquis) 2.5 mg PO BID BLOOD THINNER 09/07/19 [History Last Taken 06/18/22] glimepiride 1 mg tablet 1 mg PO QHS SUGAR 06/19/22 [History Last Taken 06/18/22] glimepiride 2 mg tablet 2 mg PO DAILY SUGAR 06/19/22 [History Last Taken 06/18/22] losartan 50 mg tablet 50 mg PO BID BP 06/19/22 [History Last Taken 06/18/22] metoprolol succinate 25 mg tablet,extended release 24 hr 25 mg PO QHS hr 06/19/22 [History Last Taken 06/18/22] clopidogrel 75 mg tablet 75 mg PO DAILY 07/30/22 [History Last Taken Unknown] metoprolol succinate 100 mg tablet,extended release 24 hr 100 mg PO DAILY 07/30/22 [History Last Taken Unknown] atorvastatin 10 mg tablet 10 mg PO QHS #30 tabs 09/19/22 [Rx Last Taken Unknown] spironolactone 25 mg tablet 25 mg PO DAILY #30 tabs 09/19/22 [Rx Last Taken Unknown] furosemide 40 mg tablet 40 mg PO QHS 10/02/22 [History Last Taken Unknown] furosemide 40 mg tablet (Lasix) 80 mg PO DAILY 10/02/22 [History Last Taken Unknown] insulin glargine 100 unit/mL (3 mL) subcutaneous pen (Lantus Solostar U-100 Insulin) 10 unit subcut DAILY 10/02/22 [History Last Taken Unknown] Allergy/AdvReac Type Severity Reaction Status Date / Time No Known Allergies Allergy Verified 10/02/22 19:14 Family History Sister Asthma Breast cancer Hypertension Hyperlipidemia Melanoma Father , From old age per patient. Denies specific medical problems. No problems noted. Mother , From old age per patient. Denies specific medical problems. No problems noted. Surgical History History of appendectomy History of coronary angioplasty (09/18/21) History of left heart catheterization (04/2017) History of percutaneous transluminal coronary angioplasty (~09/18/21) Social History household members: spouse Smoking Status: Never smoker alcohol intake: never substance use type: does not use caffeine: Yes Type: coffee Number of servings: 1 ROS ROS Narrative General: Denies fever or chills, denies weight change HENT: Denies headache, denies stuffy nose, denies sore throat EYES: Denies changes in vision Resp: Denies cough, denies changes in breathing Cardiac: Denies chest pain GI: Denies abdominal pain, denies changes in bowel, denies nausea, denies vomiting : Denies changes in urination Extremity: Denies swelling MSK: Denies weakness Neuro: Denies any numbness, denies tingling Heme: Denies any bleeding or bruising Skin: Denies rashes Psychiatric: No complaints voiced Vital Signs Vital Signs Vital Signs: 10/02/22 19:14 10/02/22 20:28 10/02/22 21:42 Temperature 98 F Temperature Source Temporal Pulse Rate 76 90 Respiratory Rate 14 23 H Respiratory Effort Normal Non-Labored Respiratory Depth Respiratory Pattern Normal Blood Pressure 133/46 H 131/103 H Blood Pressure Mean 75 112 Blood Pressure Source Blood Pressure Position Blood Pressure Location Pulse Ox 99 100 Oxygen Delivery Method Nasal Cannula Nasal Cannula Oxygen Flow Rate (L/min) 2 2 10/02/22 21:43 10/02/22 23:00 10/02/22 21:47 Temperature 97.6 F L Temperature Source Temporal Pulse Rate 95 94 96 Respiratory Rate 19 H 15 22 H Respiratory Effort Respiratory Depth Respiratory Pattern Blood Pressure 137/65 H 117/55 L Blood Pressure Mean 89 75 Blood Pressure Source Blood Pressure Position Blood Pressure Location Pulse Ox 99 98 Oxygen Delivery Method Nasal Cannula Room Air Oxygen Flow Rate (L/min) 2 10/03/22 01:15 10/03/22 01:25 10/03/22 01:35 Temperature 97.7 F L Temperature Source Temporal Pulse Rate 91 88 Respiratory Rate 16 14 Respiratory Effort Normal Non-Labored Respiratory Depth Normal Respiratory Pattern Normal Normal Blood Pressure 126/57 H Blood Pressure Mean 80 Blood Pressure Source Monitor Blood Pressure Position Semi-Fowlers Blood Pressure Location Left Arm Pulse Ox 97 Oxygen Delivery Method Nasal Cannula Nasal Cannula Oxygen Flow Rate (L/min) 2 2 10/03/22 01:35 10/03/22 01:30 Temperature 97.7 F L Temperature Source Temporal Pulse Rate 90 Respiratory Rate 16 Respiratory Effort Respiratory Depth Respiratory Pattern Blood Pressure 120/57 L Blood Pressure Mean 78 Blood Pressure Source Blood Pressure Position Blood Pressure Location Pulse Ox 99 98 Oxygen Delivery Method Nasal Cannula Nasal Cannula Oxygen Flow Rate (L/min) 2 2 Weight Weight: 61.3 kg Body Mass Index (BMI) 24.9 Physical Exam Narrative General: Alert, oriented, no apparent distress HEENT: Atraumatic, normocephalic Eyes: Anicteric, normal conjunctiva, extraocular movements grossly intact Neck: Supple Respiratory: No wheezes or rhonchi appreciated, normal respiratory effort Cardiovascular: Regular rate and rhythm GI: Soft, nontender, nondistended Extremities: No edema Musculoskeletal: Moving all extremities Neuro: No overt focal neurological deficits Skin: No rashes appreciated Psych: Cooperative Results Lab / Micro Data Result Diagrams: 10/02/22 20:22 10/03/22 00:37 Labs: Laboratory Results - last 24 hr 10/02/22 20:22: WBC 10.2, RBC 3.84 L, Hgb 10.3 L, Hct 31.5 L, MCV 82.0, MCH 26.8 L, MCHC 32.7, RDW Std Deviation 47.7 H, RDW Coeff of Jesi 15.9 H, Plt Count 300, MPV 10.4, Immature Gran % (Auto) 0.400, Neut % (Auto) 75.7 H, Lymph % (Auto) 10.6 L, Rains % (Auto) 10.7 H, Eos % (Auto) 2.2, Baso % (Auto) 0.4, Absolute Neuts (auto) 7.7, Absolute Lymphs (auto) 1.08, Nucleated RBC % 0 10/02/22 20:22: Sodium 125 L, Potassium 5.9 H, Chloride 87 L, Carbon Dioxide 23.0, Anion Gap 15, BUN 136 H*, Creatinine 4.08 H, Estim Creat Clear Calc 7.19, Est GFR (MDRD) Af Amer 13 L, Est GFR (MDRD) Non-Af 11 L, BUN/Creatinine Ratio 33.3 H, Glucose 563 H*, Calcium 9.1 10/02/22 20:22: Acetone Level NEGATIVE 10/03/22 00:16: POC Glucose 322 H 10/03/22 00:37: Sodium 132 L, Potassium 4.7, Chloride 95 L, Carbon Dioxide 22.0, Anion Gap 15, BUN 121 H*, Creatinine 3.61 H, Estim Creat Clear Calc 8.13, Est GFR (MDRD) Af Amer 15 L, Est GFR (MDRD) Non-Af 13 L, BUN/Creatinine Ratio 33.5 H, Glucose 308 H, Calcium 9.8 Assessment & Plan Assessment/Plan (1) Acute kidney injury: (2) Acute dehydration: (3) Hyperglycemia due to diabetes mellitus: (4) History of chronic CHF: PLAN: Plan #ANALISA on CKD stage IIIb -Likely secondary to dehydration compounded with medications as she had increased Lasix dose and has remained on losartan and spironolactone -Daily weights, I's and O's -We will check urine studies #Hyperkalemia -In setting of ANALISA on CKD stage IIIb and on home losartan and spironolactone -Very cautiously and gently hydrate and will hold losartan and spironolactone -EKG had some peaked T waves on presentation to the ED, K lowering cocktail given -Repeat BMP and EKG, additionally gave gentle hydration as well as further insulin and albuterol #Significant hyperglycemia in setting of type 2 diabetes mellitus -Had glucose of 643 despite taking her home medications per her report -Acetone negative and does not appear to be in DKA, given regular insulin in ED with glucose improving -We will check a.m. hemoglobin A1c -Lantus and sliding scale insulin with glucose checks, will likely adjust further with follow-up BMP #Coronary artery disease with history of PCI/aortic valve disease status post TAVR -We will continue beta-margo, aspirin, clopidogrel, statin -Saw her medical assistant per diem Dr. Barba day of presentation -Conflicting information on home regimen as med lists triple therapy but cardiology office list aspirin and Plavix with no mention of Eliquis, aspirin and Plavix continued and Eliquis on hold until this can be clarified, SCDs #Paroxysmal atrial fibrillation -Continue beta-margo -Conflicting information on home regimen as med lists triple therapy but cardiology office list aspirin and Plavix with no mention of Eliquis, aspirin and Plavix continued and Eliquis on hold until this can be clarified, SCDs #Heart failure with preserved ejection fraction and severe pulmonary hypertension, chronic -Respiratory status stable, reportedly has been wearing home O2 and has not noted increase in shortness of breath -Echocardiogram 09/15 with EF of 65% with pulmonary artery systolic pressure of 84, severe pulmonary hypertension, stage II diastolic dysfunction and moderate concentric hypertrophy left ventricle -Continuing beta-margo at lower dose, holding losartan and spironolactone, holding Lasix -Monitor respiratory status and will obtain x-ray for baseline in the event there is concern for developing pulmonary edema #DVT ppx: SCDs Sue Winters MD Time spent in the patient's overall evaluation,decision-making process, review of diagnostic data, adjustment of management, discussion with other providers, nursing nursing and ancillary staff involved in patient's care documentation, 60 minutes Charges/Coding Visit Charges Inpatient E&M: 94437 Init Hosp L2
[2022-10-03] MEDS: Calcium Gluconate 1 GM/10 ML Vial IVP (02:14)
[2022-10-03] MEDS: Insulin Lispro 100 UNIT/ML INSULN.PEN 6 UNIT SC (02:14)
[2022-10-03 02:31] LABS: Mucous, Urine 0 SEEN /hpf (<or=2+); Squamous Epithelial Cells - UA 0 SEEN /hpf (5-10)
[2022-10-03 02:34] LABS: Color, Urine Yellow (Yellow); Glucose, Dipstick 100 mg/dl (Normal); Ketone-Dipstick Negative (Negative); Leukocyte Esterase-Dipstick 500 /ul (Negative); Nitrite-Dipstick Negative (Negative); Occult Blood-Urine 50 /ul (Negative); Protein-Dipstick 30 mg/dl (Negative); Urine Bilirubin Dipstick Negative (Negative); Urine Clarity Clear (Clear); Urine Urobilinogen Normal (Normal); Urine pH 6.5 (5.0 - 8.0)
[2022-10-03 02:40] LABS: Urea Nitrogen, Urine 385 mg/dL (NO RANGE EST.)
[2022-10-03 02:43] LABS: Bacteria 1+ /hpf (None Seen); Red Blood Cells-Urine 0-5 SEEN /hpf (0-5); Urine Chloride 58 mmol/L (Not Establ.); Urine Sodium 61 mmol/L (Not Establ.); White Blood Cells 25-50 SEEN /hpf (0-5)
[2022-10-03 06:19] LABS: Absolute Lymphocyte Count 1.54 X10^3/uL (0.83-4.51); Absolute Neutrophil Count 7.7 X10^3/uL (2.0-7.7); Basophil# 0.05 X10^3/uL; Basophil% 0.5 % (0-1); Eosinophil# 0.51 X10^3/uL; Eosinophils% 4.6 % (0-5); Hematocrit 29.1 % (37-47); Hemoglobin 9.5 g/dL (12.0-15.0); Lymphocyte # 1.54 X10^3/ul (0.83-4.51); Mean Corp Hgb Conc 32.6 g/dL (32-36); Mean Corpuscular Volume 82.7 fL (81-99); Mean Platelet Vol. 10.1 fl (6.2-12.0); Monocyte# 1.18 X10^3/uL; Monocyte% 10.7 % (0-10); NRBC Flagged by Analyzer 0 % (0-5); Neutrophil # 7.67 X10^3/uL (2.7-7.7); Neutrophil % 69.8 % (47-70); Platelet Count 281 K/mm3 (150-450); RBC Distribution Width CV 15.9 % (11.6-14.6); RBC Distribution Width SD 47.8 fl (35.1-43.9); Red Blood Count 3.52 M/mm3 (4.2-5.4)
[2022-10-03 06:40] LABS: ALB/GLOB Ratio 0.7 RATIO (0.9-2.4); AST(SGOT) 12 U/L (15-37); Alanine Aminotransfer ALT/SGPT 18 U/L (13-56); Albumin, Serum 2.7 g/dL (3.2-5.0); Alkaline Phosphatase 162 U/L (45-117); Anion Gap 11 (5-15); BUN 108 mg/dL (7-18); BUN/Creat Ratio 33.4 RATIO (10-20); Calcium,Total 9.2 mg/dL (8.5-10.1); Chloride 101 mmol/L (98-107); Creatinine, Serum 3.23 mg/dL (0.55-1.02); EST Glomerular Filtration Rate 14 mL/min (>60); Est Glom Filt Rate - Afr Amer 17 mL/min (>60); Estimated Creatinine Clearance 9.08 ml/min; Globulin 4.1 g/dL (2.2-4.2); Glucose 258 mg/dL (74-106); Magnesium 2.4 mg/dL (1.6-2.6); Potassium 4.8 mmol/L (3.5-5.1); Protein, Total 6.8 g/dL (6.4-8.2); Sodium Level 133 mmol/L (136-145)
[2022-10-03] MEDS: Insulin Lispro 100 UNIT/ML INSULN.PEN SC ×4 (08:07→22:47)
[2022-10-03] MEDS: Aspirin 81 MG TAB.CHEW PO (08:08)
[2022-10-03] MEDS: Insulin Glargine-YFGN 100 UNIT/ML Pen 10 UNIT SC (08:08)
[2022-10-03 08:35] LABS: Bedside Glucose 239 mg/dL (74-106)
[2022-10-03] MEDS: Clopidogrel Bisulfate 75 MG Tablet PO (10:13)
--- NOTE | 2022-10-03 13:10 | CASEMGMT ---
Addendum entered by Won Pagan 10/03/22 18:02: 1545: Therapy has worked w/pt and recommend aquatic therapy. Call placed to [facility] who states pt has not been in to see them since Aug 19 and they would need a new script for therapy. Script placed on pt's chart, awaiting physician signature. Green sheet placed on chart w/instructions for staff to obtain this prior to discharge and to give the script to pt. Green sheet also w/instructions if pt qualifies for more than 2 l/m O2 w/exertion. Original Note: BROWN SUMMERS NOTE: BROWN CM to room to talk w/pt and who is at bedside. Introduced self and role. Pt states she has been taking her meds as prescribed and has went to her appts. Pt states she has been doing well @ home since last discharge, other than her right knee pain and it gives out on her sometimes. She states she had been going to OP therapy @ [facility] but has not went back since her last admission to [facility] d/t the therapy aggravates/worsens her right knee pain sometimes. Pt states she does wish to discharge home w/ when she is medically ready. She is not sure if she would want to have OP therapy again or not. She was made aware therapy evals are pending and they will make recommendations, if needed. She has been wearing her oxygen @ 2l/m w/exertion. states he can bring in the portable O2 tank @ discharge. They deny having other DME needs. Pt and deny having any further discharge planning needs or concerns. Plan: Home w/spousal support and discharge plans in place and resumption of CCN. PT/OT evals pending. Gypsy BARRY RN, CM
--- NOTE | 2022-10-03 15:39 | CASEMGMT ---
BROWN SUMMERS Readmission Review: Index: 09/15 thru 09/19/22 Dx: Acute diastolic CHF exacerbation, acute hypoxic respiratory failure Readmission: 10/03/22 Dx: ANALISA on CKD stage 3b, hyperglycemia w/DM II Patient with comorbidities including CHF, CKD stage 3b, DM II, pulmonary HTN, CAD s/p PCI and s/p TAVR, afib. Pt was admitted on index and readmitted as noted above. Pt was noted to have been independent with ADLs prior to admission and resided with her in a [place] with 12 steps to enter the home. Pt was active with CCN and had home [facility]. Pt returned home at discharge with continuation of these services and an order for outpatient PT/OT. The pt was not certain if she was going to attend the outpatient therapy but was to consider it upon returning home. A palliative care referral was sent to [facility] but per Geovanny at [facility], the pt and her spouse declined their services. Pt was discharged with an increase in her lasix dosage for treatment of her CHF. Will continue to monitor and assist pt with discharge needs as identified during this visit. Macy Allen RN CM
[2022-10-03 16:15] LABS: Bedside Glucose 161 mg/dL (74-106)
[2022-10-03 18:35] LABS: Bedside Glucose 184 mg/dL (74-106)
[2022-10-03] MEDS: Atorvastatin Calcium 10 MG Tablet PO (22:48)
[2022-10-03] MEDS: Metoprolol(XL)Succ 25 MG Tablet PO (22:48)
[2022-10-03 23:11] LABS: Bedside Glucose 344 mg/dL (74-106)
[2022-10-04] VITALS (7 sets, daily range): BP systolic 129–154; BP diastolic 63–69; PULSE 80–95; RESP 14–18; TEMP 36.3–36.9; O2SAT 94–100
[2022-10-04 03:21] LABS: Absolute Neutrophil Count 6.7 X10^3/uL (2.0-7.7); Basophil# 0.06 X10^3/uL; Basophil% 0.6 % (0-1); Eosinophil# 0.98 X10^3/uL; Eosinophils% 9.3 % (0-5); Hematocrit 31.7 % (37-47); Hemoglobin 9.9 g/dL (12.0-15.0); Lymphocyte % 12.3 % (19-41); Mean Corp Hgb Conc 31.2 g/dL (32-36); Mean Corpuscular Volume 83.2 fL (81-99); Monocyte# 1.46 X10^3/uL; Monocyte% 13.8 % (0-10); NRBC Flagged by Analyzer 0 % (0-5); Neutrophil # 6.73 X10^3/uL (2.7-7.7); Neutrophil % 63.7 % (47-70); Platelet Count 286 K/mm3 (150-450); RBC Distribution Width SD 48.8 fl (35.1-43.9); Red Blood Count 3.81 M/mm3 (4.2-5.4); White Blood Count 10.6 K/mm3 (4.4-11.0)
[2022-10-04 03:47] LABS: Anion Gap 10 (5-15); BUN 101 mg/dL (7-18); BUN/Creat Ratio 36.9 RATIO (10-20); Calcium,Total 9.9 mg/dL (8.5-10.1); Chloride 104 mmol/L (98-107); Creatinine, Serum 2.74 mg/dL (0.55-1.02); EST Glomerular Filtration Rate 17 mL/min (>60); Est Glom Filt Rate - Afr Amer 21 mL/min (>60); Estimated Creatinine Clearance 10.71 ml/min; Glucose 66 mg/dL (74-106); Potassium 4.8 mmol/L (3.5-5.1); Sodium Level 138 mmol/L (136-145)
[2022-10-04 07:15] LABS: Bedside Glucose 87 mg/dL (74-106)
[2022-10-04] MEDS: Aspirin 81 MG TAB.CHEW PO (07:56)
[2022-10-04] MEDS: Dext 5%-0.45% NS 1,000 ML 75 ML IV (08:05)
[2022-10-04] MEDS: Clopidogrel Bisulfate 75 MG Tablet PO (09:06)
[2022-10-04] MEDS: Metoprolol(XL)Succ 50 MG Tablet PO (09:07)
--- NOTE | 2022-10-04 09:50 | PN.HOSP_ITS ---
Subjective Subjective Doing well, feels better than yesterday. Renal function is improving but her blood sugar was a little bit low this morning Objective Data Objective Data Vital Signs: Vital Signs Temp Pulse Resp BP Pulse Ox O2 Del Method O2 Flow Rate 97.3 F L 95 14 141/65 H 100 Room Air 4 10/04/22 07:52 10/04/22 09:07 10/04/22 07:52 10/04/22 09:07 10/04/22 07:52 10/04/22 08:00 10/04/22 05:51 Oxygen Flow Rate (L/min) 4 Oxygen Delivery Method Room Air Weight: 136 lb 3.931 oz Body Mass Index (BMI) 24.9 Intake & Output: Intake and Output for Last 24 Hours 10/03/22 10/04/22 10/05/22 03:59 03:59 03:59 Intake Total 1538.33 / 1538.33 150 / 150 Output Total 900 / 900 Balance 1538.33 / 1538.33 -900 / -900 150 / 150 Lab / Micro Data Result Diagrams: 10/04/22 02:35 10/04/22 02:35 Labs: Laboratory Results - last 24 hr 10/03/22 11:25: POC Glucose 161 H 10/03/22 18:13: POC Glucose 184 H 10/03/22 22:46: POC Glucose 344 H 10/04/22 02:35: WBC 10.6, RBC 3.81 L, Hgb 9.9 L, Hct 31.7 L, MCV 83.2, MCH 26.0 L, MCHC 31.2 L, RDW Std Deviation 48.8 H, RDW Coeff of Jesi 16.0 H, Plt Count 286, MPV 10.0, Immature Gran % (Auto) 0.300, Neut % (Auto) 63.7, Lymph % (Auto) 12.3 L, [place] % (Auto) 13.8 H, Eos % (Auto) 9.3 H, Baso % (Auto) 0.6, Absolute Neuts (auto) 6.7, Absolute Lymphs (auto) 1.30, Nucleated RBC % 0 10/04/22 02:35: Sodium 138, Potassium 4.8, Chloride 104, Carbon Dioxide 24.0, Anion Gap 10, BUN 101 H*, Creatinine 2.74 H, Estim Creat Clear Calc 10.71, Est GFR (MDRD) Af Amer 21 L, Est GFR (MDRD) Non-Af 17 L, BUN/Creatinine Ratio 36.9 H , Glucose 66 L, Calcium 9.9 10/04/22 06:57: POC Glucose 87 Radiography Diagnostic Testing: Radiology Impression Chest X-Ray 10/03/22 01:40 IMPRESSION: Mild increased markings in the right upper lobe as well as in the medial aspect of the left upper lobe. Further follow-up is recommended. Electronically Signed: Randolph Fallon MD at 12:13 EST , Physical Exam Narrative General: Alert, Oriented x3, Cooperative, No apparent distress HEENT: Atraumatic, PERRLA, EOMI, Normocephalic Oral: Moist Mucosa Neck: Supple, No JVD Lungs: Diminished, Normal air movement, No rhonchi, No wheeze, No rales Cardiovascular: Regular rate, Regular Rhythm, Normal S1, Normal S2, No murmurs, click from TAVR Abdomen: Soft, Non Tender, Non-Distended, No Hepato-splenomegaly Extremities: No edema, Capillary Refill Less than 3 Seconds Skin: No rashes, No breakdown Musculoskeletal: No Tenderness to Palpation of Joints or Extremities Neurological: Cranial nerves II-XII grossly intact, Motor Exam 5/5 strength throughout, Sensory exam intact to light touch and pain Psych/Mental Status: Normal Affect, Appropriate Assessment & Plan Assessment/Plan (1) Acute kidney injury: (2) Acute dehydration: (3) Hyperglycemia due to diabetes mellitus: (4) History of chronic CHF: PLAN: Plan 1. ANALISA on CKD 3B/hyperkalemia ? Continue with IV fluids will change to D5 half-normal saline ? Her renal function is returning to baseline, will continue to monitor ? We will continue to hold her diuretics ? Potassium is resolved 2. CAD status post stent/status post TAVR/A-fib/chronic diastolic CHF with severe pulmonary hypertension ? We will be cautious with her IV fluids ? Continue to hold her diuretics given her significant ANALISA ? Continue with her other home blood pressure including metoprolol delete that ? Continue with Lipitor, as is aspirin and Plavix, continue with Eliquis per the previous cardiology note from 09/16/2022 the recommendation was to remain on Eliquis ? Echo from 09/15/2022 with an EF of 65% and severe pulmonary hypertension with a PASP of 84 mmHg and stage II diastolic dysfunction 3. DM2 ? Has had significant hyperglycemia on admission with a glucose of 643 ? We will place her on insulin, she does not appear to be in DKA ? We will make adjustments ? Accu-Chevalerie CORONADOS DVT: Eliquis Charges/Coding Visit Charges Inpatient E&M: 97929 Subs Hosp L2
[2022-10-04] MEDS: APIXABAN 2.5 MG TABLET (WCH) PO ×2 (11:56→22:07)
[2022-10-04 12:15] LABS: Bedside Glucose 187 mg/dL (74-106)
[2022-10-04] MEDS: Insulin Lispro 100 UNIT/ML INSULN.PEN SC ×3 (12:58→22:07)
[2022-10-04] MEDS: Insulin Glargine-YFGN 100 UNIT/ML Pen 20 UNIT SC (13:10)
[2022-10-04 17:10] LABS: Bedside Glucose 285 mg/dL (74-106)
[2022-10-04] MEDS: Atorvastatin Calcium 10 MG Tablet PO (22:07)
[2022-10-04] MEDS: Metoprolol(XL)Succ 25 MG Tablet PO (22:07)
[2022-10-04 22:46] LABS: Bedside Glucose 263 mg/dL (74-106)
[2022-10-04] MEDS: 0.9% Normal Saline 1,000 ML 50 ML IV (23:30)
[2022-10-05 03:50] VITALS: BP 139/58; PULSE 92; RESP 16; TEMP 36.9; O2SAT 98
[2022-10-05 07:10] LABS: Bedside Glucose 128 mg/dL (74-106)
[2022-10-05 07:14] LABS: Absolute Lymphocyte Count 1.01 X10^3/uL (0.83-4.51); Absolute Neutrophil Count 5.3 X10^3/uL (2.0-7.7); Basophil# 0.04 X10^3/uL; Basophil% 0.5 % (0-1); Eosinophil# 1.12 X10^3/uL; Hemoglobin 9.2 g/dL (12.0-15.0); Lymphocyte # 1.01 X10^3/ul (0.83-4.51); Lymphocyte % 11.7 % (19-41); Mean Corp Hgb Conc 31.7 g/dL (32-36); Mean Corpuscular Hgb 26.4 pg (27.0-32.0); Mean Corpuscular Volume 83.3 fL (81-99); Mean Platelet Vol. 10.1 fl (6.2-12.0); Monocyte# 1.09 X10^3/uL; Monocyte% 12.7 % (0-10); NRBC Flagged by Analyzer 0 % (0-5); Neutrophil # 5.32 X10^3/uL (2.7-7.7); Neutrophil % 61.8 % (47-70); Platelet Count 237 K/mm3 (150-450); RBC Distribution Width CV 15.9 % (11.6-14.6); RBC Distribution Width SD 48.2 fl (35.1-43.9); Red Blood Count 3.48 M/mm3 (4.2-5.4); White Blood Count 8.6 K/mm3 (4.4-11.0)
[2022-10-05 07:29] LABS: Anion Gap 8 (5-15); BUN 73 mg/dL (7-18); BUN/Creat Ratio 36.9 RATIO (10-20); Calcium,Total 8.9 mg/dL (8.5-10.1); Chloride 108 mmol/L (98-107); Creatinine, Serum 1.98 mg/dL (0.55-1.02); EST Glomerular Filtration Rate 25 mL/min (>60); Est Glom Filt Rate - Afr Amer 31 mL/min (>60); Estimated Creatinine Clearance 14.82 ml/min; Glucose 130 mg/dL (74-106); Potassium 4.5 mmol/L (3.5-5.1); Sodium Level 137 mmol/L (136-145)
[2022-10-05 07:55] VITALS: O2SAT 97
[2022-10-05] MEDS: Aspirin 81 MG TAB.CHEW PO (08:52)
[2022-10-05] MEDS: Insulin Glargine-YFGN 100 UNIT/ML Pen 20 UNIT SC (08:52)
[2022-10-05] MEDS: APIXABAN 2.5 MG TABLET (WCH) PO (08:53)
[2022-10-05] MEDS: Clopidogrel Bisulfate 75 MG Tablet PO (08:53)
[2022-10-05 08:54] VITALS: PULSE 88
[2022-10-05] MEDS: Metoprolol(XL)Succ 50 MG Tablet PO (08:54)
[2022-10-05 09:30] VITALS: BP 141/65; PULSE 88; RESP 15; TEMP 36.7; O2SAT 97
--- NOTE | 2022-10-05 11:06 | DCINST_ITS ---
Discharge Instructions Diet Discharge Diet: Low fat / Low cholesterol and Carb Control Diet Activity Discharge Activity: Return to Normal Activity Dressing / Incision Call your doctor if you observe: Fever of 101 or Higher, Shortness of breath, Dizziness, Fainting spells, Swelling in the ankles, Chest pain and Increased palpitations (irregular heartbeat) Follow Up Care Test Results: Test results from this visit will be discussed in further detail at your follow- up appointment, if applicable. Discharge Plan Admission Admit Date/Time: 10/03/22 00:40 Attending Provider: Rico Shepherd Primary Care Provider: Ventura Baron Consulting Providers: Sue Winters Instructions Additional Instructions / Restrictions: Follow-up with your PCP early this week to obtain lab work to monitor your potassium and your renal function. I would discuss with your PCP on when to resume your home medications based on your lab work. Discharge Orders/Prescriptions Prescriptions: Continued Eliquis 2.5 mg tablet 2.5 mg PO BID Hold Instructions: Resume on 10/17/21. aspirin 81 MG tablet,chewable 81 mg PO DAILY@0800 Label Comments: heart health amlodipine 10 MG tablet 10 mg PO QHS Label Comments: BLOOD PRESSURE/HEART glimepiride 2 mg tablet 2 mg PO DAILY Rx Instructions: 2MG in AM and 1mg QHS glimepiride 1 mg tablet 1 mg PO QHS metoprolol succinate 25 mg tablet extended release 24 hr 25 mg PO QHS metoprolol succinate 100 mg Tablet Extended Release 24 Hr 100 mg PO DAILY clopidogrel 75 mg Tablet 75 mg PO DAILY atorvastatin 10 mg Tablet 10 mg PO QHS Qty: 30 0RF insulin glargine [Lantus Solostar U-100 Insulin] 100 unit/mL (3 mL) insulin pen 10 unit SUBCUT DAILY Label Comments: INJECT 10 UNITS SUBCUTANEOUSLY ONCE DAILY Held furosemide [Lasix] 40 mg tablet 80 mg PO DAILY Hold Instructions: Resume on 10/07/22. Rx Instructions: 40 mg orally take 2 tabs in the am and 2 taba in the pm; losartan 50 mg tablet 50 mg PO BID Hold Instructions: Resume on 10/06/22. spironolactone 25 mg Tablet 25 mg PO DAILY Qty: 30 0RF Hold Instructions: Resume on 10/08/22. Discontinued furosemide 40 mg tablet 40 mg PO QHS Label Comments: TAKE TWO TABLETS BY MOUTHCEVERY MORNING AND 1 TABLET IN THE EVENING AT 6PM Referrals / Follow Up: Ventura Baron DO [Primary Care Provider] - Within 1 Week Disposition Disposition (needs filled in before D/C Order can be placed): Home, Self Care
[2022-10-05 11:40] LABS: Bedside Glucose 230 mg/dL (74-106)
[2022-10-05] MEDS: Insulin Lispro 100 UNIT/ML INSULN.PEN SC (11:40)
--- NOTE | 2022-10-05 12:20 | DS.PCM_ITS ---
Providers Date of Admission: 10/03/22 Primary Care Physician: Dr. Ventura Baron DO Reason For Visit: HYPERKALEMIA, ANALISA Diagnosis Discharge Diagnosis (1) Acute kidney injury: Status: Acute Code(s): N17.9 - Acute kidney failure, unspecified (2) Acute dehydration: Status: Acute Code(s): E86.0 - Dehydration (3) Hyperglycemia due to diabetes mellitus: Status: Acute Code(s): E11.65 - Type 2 diabetes mellitus with hyperglycemia (4) History of chronic CHF: Status: Chronic Code(s): Z86.79 - Personal history of other diseases of the circulatory system Medications at Discharge Home Medications aspirin 81 mg chewable tablet 81 mg PO DAILY@0800 BLOOD THINNER 04/21/17 amlodipine 10 mg tablet 10 mg PO QHS BP 04/28/17 apixaban 2.5 mg tablet (Eliquis) 2.5 mg PO BID BLOOD THINNER 09/07/19 glimepiride 1 mg tablet 1 mg PO QHS SUGAR 06/19/22 glimepiride 2 mg tablet 2 mg PO DAILY SUGAR 06/19/22 losartan 50 mg tablet 50 mg PO BID BP 06/19/22 metoprolol succinate 25 mg tablet,extended release 24 hr 25 mg PO QHS hr 06/19/22 clopidogrel 75 mg tablet 75 mg PO DAILY 07/30/22 metoprolol succinate 100 mg tablet,extended release 24 hr 100 mg PO DAILY 07/30/22 atorvastatin 10 mg tablet 10 mg PO QHS #30 tabs 09/19/22 spironolactone 25 mg tablet 25 mg PO DAILY #30 tabs 09/19/22 furosemide 40 mg tablet (Lasix) 80 mg PO DAILY 10/02/22 insulin glargine 100 unit/mL (3 mL) subcutaneous pen (Lantus Solostar U-100 Insulin) 10 unit subcut DAILY 10/02/22 Hospital Course Operations None Procedures None Summary of Care Provided Minutes Spent on Discharge: 37 Hospital Course: Per HPI: PHUC AIKEN, is a 87-year-old female with a history of CKD, heart failure with reduced ejection fraction, coronary artery disease status post angioplasty 09/18/2021, paroxysmal atrial fibrillation, TAVR in 2017, pulmonary hypertension, home O2, JONNY who presented 10/02/22 after her outpatient physician found abnormal labs with a potassium of 6.3 and a creatinine of 3.95 with a BUN of 132 and a glucose of 643.? Patient was sent to the ED for further evaluation and reported she has no specific complaints and has not felt particularly bad and would not of come to the ED if she was not told to.? Labs confirmed hyperkalemia, ANALISA, hyperglycemia and there were noted to be some peaked T waves on EKG.? Hospitalist consulted for admission after patient received insulin, calcium gluconate, albuterol.? In the ED patient reports feeling roughly the same and had no complaints.? She reports eating and drinking well and has not had any increase in urinary frequency.? Of note she was recently admitted for a heart failure exacerbation and was discharged on 09/19 with an increased Lasix dose. Hospital Course: 1.? ANALISA on CKD 3B/hyperkalemia ? Continue with IV fluids will change to D5 half-normal saline ? Her renal function is returning to baseline, will continue to monitor ? We will continue to hold her diuretics ? Potassium is resolved ? Her serum creatinine is now at 1.98 approve from her admission creatinine of 4.08. I discussed with her the plan for discharge today she expressed understanding of the risk benefits of going home and would like to go home today. Her potassium has also gone back to baseline. I do recommend she follow-up with her PCP in 3 to 5 days for outpatient blood work to monitor continued resolution of her creatinine as well as her hyperkalemia 2.? CAD status post stent/status post TAVR/A-fib/chronic diastolic CHF with severe pulmonary hypertension ? We will be cautious with her IV fluids ? We will resume her losartan tomorrow for her blood sugar and can restart her Lasix at 80 mg p.o. twice daily on Thursday and then we can restart her Aldactone on Thursday. I do recommend that she follow-up with her PCP for outpatient blood work prior to restarting her medications if possible ? Continue with her other home blood pressure including metoprolol delete that ? Continue with Lipitor, as is aspirin and Plavix, continue with Eliquis per the previous cardiology note from 09/16/2022 the recommendation was to remain on Eliq uis ? Echo from 09/15/2022 with an EF of 65% and severe pulmonary hypertension with a PASP of 84 mmHg and stage II diastolic dysfunction 3.? DM2 ? Has had significant hyperglycemia on admission with a glucose of 643 ? We will place her on insulin, she does not appear to be in DKA ? We will make adjustments ? Accu-Cheks ACHS ? Blood sugar is also resolved and is now at 130 on the day of discharge. Continue outpatient monitoring and management. Physical Exam Narrative General: Alert, Oriented x3, Cooperative, No apparent distress HEENT: Atraumatic, PERRLA, EOMI, Normocephalic Oral: Moist Mucosa Neck: Supple, No JVD Lungs: Diminished, Normal air movement, No rhonchi, No wheeze, No rales Cardiovascular: Regular rate, Regular Rhythm, Normal S1, Normal S2, No murmurs, click from TAVR Abdomen: Soft, Non Tender, Non-Distended, No Hepato-splenomegaly Extremities: No edema, Capillary Refill Less than 3 Seconds Skin: No rashes, No breakdown Musculoskeletal: No Tenderness to Palpation of Joints or Extremities Neurological: Cranial nerves II-XII grossly intact, Motor Exam 5/5 strength throughout, Sensory exam intact to light touch and pain Psych/Mental Status: Normal Affect, Appropriate Weight / BMI Weight Weight: 137 lb 12.623 oz Body Mass Index (BMI) 24.9 ABG / Lab / Microbiology Data Result Diagrams: 10/05/22 06:35 10/05/22 06:35 Laboratory: Laboratory Results - last 24 hr 10/04/22 16:43: POC Glucose 285 H 10/04/22 22:00: POC Glucose 263 H 10/05/22 06:31: POC Glucose 128 H 10/05/22 06:35: WBC 8.6, RBC 3.48 L, Hgb 9.2 L, Hct 29.0 L, MCV 83.3, MCH 26.4 L , MCHC 31.7 L, RDW Std Deviation 48.2 H, RDW Coeff of Jesi 15.9 H, Plt Count 237, MPV 10.1, Immature Gran % (Auto) 0.300, Neut % (Auto) 61.8, Lymph % (Auto) 11.7 L, [place] % (Auto) 12.7 H, Eos % (Auto) 13.0 H, Baso % (Auto) 0.5, Absolute Neuts (auto) 5.3, Absolute Lymphs (auto) 1.01, Nucleated RBC % 0 10/05/22 06:35: Sodium 137, Potassium 4.5, Chloride 108 H, Carbon Dioxide 21.0, Anion Gap 8, BUN 73 H, Creatinine 1.98 H, Estim Creat Clear Calc 14.82, Est GFR (MDRD) Af Amer 31 L, Est GFR (MDRD) Non-Af 25 L, BUN/Creatinine Ratio 36.9 H, Glucose 130 H, Calcium 8.9 10/05/22 11:21: POC Glucose 230 H D/C Instructions Discharge Diet: Low fat / Low cholesterol and Carb Control Diet Call your doctor if you observe: Fever of 101 or Higher, Shortness of breath, Dizziness, Fainting spells, Swelling in the ankles, Chest pain and Increased palpitations (irregular heartbeat) Meaningful Use Info Meaningful Use Diagnoses (Choose all that apply): None applicable Discharge Plan Admission Admit Date/Time: 10/03/22 00:40 Attending Provider: Rico Shepherd Primary Care Provider: Ventura Baron Consulting Providers: Sue Winters Instructions Additional Instructions / Restrictions: Follow-up with your PCP early this week to obtain lab work to monitor your potassium and your renal function. I would discuss with your PCP on when to resume your home medications based on your lab work. Discharge Orders/Prescriptions Prescriptions: Continued Eliquis 2.5 mg tablet 2.5 mg PO BID Hold Instructions: Resume on 10/17/21. aspirin 81 MG tablet,chewable 81 mg PO DAILY@0800 Label Comments: heart health amlodipine 10 MG tablet 10 mg PO QHS Label Comments: BLOOD PRESSURE/HEART glimepiride 2 mg tablet 2 mg PO DAILY Rx Instructions: 2MG in AM and 1mg QHS glimepiride 1 mg tablet 1 mg PO QHS metoprolol succinate 25 mg tablet extended release 24 hr 25 mg PO QHS metoprolol succinate 100 mg Tablet Extended Release 24 Hr 100 mg PO DAILY clopidogrel 75 mg Tablet 75 mg PO DAILY atorvastatin 10 mg Tablet 10 mg PO QHS Qty: 30 0RF insulin glargine [Lantus Solostar U-100 Insulin] 100 unit/mL (3 mL) insulin p en 10 unit SUBCUT DAILY Label Comments: INJECT 10 UNITS SUBCUTANEOUSLY ONCE DAILY Held furosemide [Lasix] 40 mg tablet 80 mg PO DAILY Hold Instructions: Resume on 10/07/22. Rx Instructions: 40 mg orally take 2 tabs in the am and 2 taba in the pm; losartan 50 mg tablet 50 mg PO BID Hold Instructions: Resume on 10/06/22. spironolactone 25 mg Tablet 25 mg PO DAILY Qty: 30 0RF Hold Instructions: Resume on 10/08/22. Discontinued furosemide 40 mg tablet 40 mg PO QHS Label Comments: TAKE TWO TABLETS BY MOUTHCEVERY MORNING AND 1 TABLET IN THE EVENING AT 6PM Referrals / Follow Up: Ventura Baron DO [Primary Care Provider] - Within 1 Week Disposition Disposition (needs filled in before D/C Order can be placed): Home, Self Care Charges/Coding Visit Charges Inpatient E&M: 56637 Disch Hosp >30min
== END 2022-10-05 13:15 | disposition home or self-care (01) | DRG 683 ==
LOC: ED 21:43 → ICU 22:04 → PCU 10-05 11:10 → ICU 10-06 10:02 → PCU 10-06 10:02
PROVIDERS: Admitting Provider Internal Medicine; Emergency Provider Emergency Medicine; PCP Family Medicine; Visit Provider Family Medicine
DX: N17.9 Acute kidney failure, unspecified (principal); I13.0 Hypertensive heart and chronic kidney disease with heart failure and stage 1 through stage 4 chronic kidney disease, or unspecified chronic kidney disease; I50.32 Chronic diastolic (congestive) heart failure; I27.20 Pulmonary hypertension, unspecified; E11.22 Type 2 diabetes mellitus with diabetic chronic kidney disease; E11.65 Type 2 diabetes mellitus with hyperglycemia; I48.0 Paroxysmal atrial fibrillation; E86.0 Dehydration; E78.5 Hyperlipidemia, unspecified; N18.32 Chronic kidney disease, stage 3b; I25.10 Atherosclerotic heart disease of native coronary artery without angina pectoris; I25.5 Ischemic cardiomyopathy; E87.5 Hyperkalemia; I25.2 Old myocardial infarction; Z79.01 Long term (current) use of anticoagulants; Z79.84 Long term (current) use of oral hypoglycemic drugs; Z79.82 Long term (current) use of aspirin; Z79.02 Long term (current) use of antithrombotics/antiplatelets; Z86.79 Personal history of other diseases of the circulatory system
CPT/HCPCS: 36415; 71045; 80048; 80053; 81001; 82009; 82436; 82570; 82962; 83735; 84133; 84300; 84540; 85025; 93005; 94640; 94668; 97110; 97116; 97162; 97166; 97530; 97535; 99252; 99285; J7030; J7050; A4216; G0463; J0610; J7799

== ENCOUNTER → 2022-10-02 | Outpatient (CLI) | payer MEDICARE, OTHER, SELFPAY ==
[2022-10-02 18:23] LABS: Anion Gap 11 (5-15); BUN 132 mg/dL (7-18); BUN/Creat Ratio 33.4 RATIO (10-20); Calcium,Total 9.2 mg/dL (8.5-10.1); Chloride 88 mmol/L (98-107); Creatinine, Serum 3.95 mg/dL (0.55-1.02); EST Glomerular Filtration Rate 11 mL/min (>60); Est Glom Filt Rate - Afr Amer 14 mL/min (>60); Glucose 643 mg/dL (74-106); Potassium 6.3 mmol/L (3.5-5.1); Sodium Level 124 mmol/L (136-145)
== END | disposition home or self-care (01) ==
LOC: LAB 16:08
PROVIDERS: PCP Family Medicine; Visit Provider Family Medicine
DX: I10 Essential (primary) hypertension (principal)
CPT/HCPCS: 36415; 80048

== ENCOUNTER → 2022-10-08 | Outpatient (CLI) | payer MEDICARE, OTHER, SELFPAY ==
[2022-10-08 13:59] LABS: Anion Gap 10 (5-15); BUN 66 mg/dL (7-18); BUN/Creat Ratio 30.3 RATIO (10-20); Calcium,Total 9.8 mg/dL (8.5-10.1); Chloride 108 mmol/L (98-107); Creatinine, Serum 2.18 mg/dL (0.55-1.02); EST Glomerular Filtration Rate 23 mL/min (>60); Est Glom Filt Rate - Afr Amer 27 mL/min (>60); Glucose 231 mg/dL (74-106); Potassium 5.1 mmol/L (3.5-5.1); Sodium Level 137 mmol/L (136-145)
== END | disposition home or self-care (01) ==
PROVIDERS: PCP Family Medicine; Visit Provider Family Medicine
DX: N18.32 Chronic kidney disease, stage 3b (principal)
CPT/HCPCS: 36415; 80048

== ENCOUNTER → 2022-10-09 | Outpatient (CLI) | payer MEDICARE, OTHER, SELFPAY ==
[2022-10-09 14:03] LABS: Anion Gap 7 (5-15); BUN 55 mg/dL (7-18); BUN/Creat Ratio 31.2 RATIO (10-20); Calcium,Total 9.3 mg/dL (8.5-10.1); Chloride 110 mmol/L (98-107); Creatinine, Serum 1.76 mg/dL (0.55-1.02); EST Glomerular Filtration Rate 29 mL/min (>60); Est Glom Filt Rate - Afr Amer 35 mL/min (>60); Glucose 211 mg/dL (74-106); Potassium 4.6 mmol/L (3.5-5.1); Sodium Level 138 mmol/L (136-145)
== END | disposition home or self-care (01) ==
LOC: LAB 13:08
PROVIDERS: PCP Family Medicine; Referring Provider Internal Medicine Cardiovascular Disease; Visit Provider Internal Medicine Cardiovascular Disease
DX: Z98.61 Coronary angioplasty status (principal); I27.20 Pulmonary hypertension, unspecified; I50.42 Chronic combined systolic (congestive) and diastolic (congestive) heart failure; I48.0 Paroxysmal atrial fibrillation; Z95.2 Presence of prosthetic heart valve; I25.10 Atherosclerotic heart disease of native coronary artery without angina pectoris; I34.0 Nonrheumatic mitral (valve) insufficiency; E78.5 Hyperlipidemia, unspecified
CPT/HCPCS: 36415; 80048

== ENCOUNTER → 2022-10-16 | Outpatient (CLI) | payer MEDICARE, OTHER, SELFPAY ==
[2022-10-16 18:09] LABS: BNP,B-Type NATRIURETIC PEPTIDE 947.5 pg/mL (0-100)
[2022-10-16 18:25] LABS: Anion Gap 7 (5-15); BUN 50 mg/dL (7-18); BUN/Creat Ratio 28.2 RATIO (10-20); Calcium,Total 9.6 mg/dL (8.5-10.1); Chloride 106 mmol/L (98-107); Creatinine, Serum 1.77 mg/dL (0.55-1.02); EST Glomerular Filtration Rate 29 mL/min (>60); Est Glom Filt Rate - Afr Amer 35 mL/min (>60); Glucose 240 mg/dL (74-106); Potassium 3.9 mmol/L (3.5-5.1); Sodium Level 137 mmol/L (136-145)
== END | disposition home or self-care (01) ==
LOC: BFHLAB 14:27
PROVIDERS: PCP Family Medicine; Visit Provider Family Medicine
DX: I50.9 Heart failure, unspecified (principal); N18.32 Chronic kidney disease, stage 3b
CPT/HCPCS: 36415; 80048; 83880

== ENCOUNTER 2022-10-17 05:42 | Inpatient (IN) | payer MEDICARE, OTHER, SELFPAY ==
[2022-10-17] VITALS (9 sets, daily range): BP systolic 121–147; BP diastolic 58–125; PULSE 89–104; RESP 16–30; TEMP 36.2–37; O2SAT 77–98; BMI 28.9; BMI 26.9
--- NOTE | 2022-10-17 06:02 | EKG12_ITS ---
Test Reason : SOB Blood Pressure : / mmHG Vent. Rate : 096 BPM Atrial Rate : 096 BPM P-R Int : 180 ms QRS Dur : 064 ms QT Int : 350 ms P-R-T Axes : 027 -31 078 degrees QTc Int : 442 ms Normal sinus rhythm Left axis deviation Nonspecific ST abnormality Abnormal ECG Confirmed by SANTY ARMENTA, NILSA ([id number]), newspaper or periodical editor SARAH GAVIRIA ([id number]) on 10/20/2022 11:22:34 AM Referred By: SAUL Confirmed By:NILSA MADERA MD
--- NOTE | 2022-10-17 06:02 | RAD_ITS ---
EXAM: XR CHEST, 1 VIEW CLINICAL INDICATION: dyspnea TECHNIQUE: Frontal view of the chest. This report was created using [employer] report generation technology. COMPARISON: 10/03/2022 FINDINGS: LUNGS AND PLEURAL SPACES: Patchy bilateral pulmonary infiltrates with small pleural effusions. No pneumothorax. HEART: Unremarkable. Cardiac silhouette not enlarged. MEDIASTINUM: Benign calcified mediastinal lymph nodes. BONES/JOINTS: Unremarkable. SOFT TISSUES: Unremarkable. RAD/Chest 1 View (Portable) IMPRESSION: Patchy bilateral pulmonary infiltrates with small pleural effusions. Findings may indicate pneumonia. Electronically Signed: Froylan Malone MD at 6:55 EST ,
[2022-10-17] MEDS: Ipratropium/Albuterol Sulfate 3 ML AMPUL.NEB INHALATION (06:07)
[2022-10-17] MEDS: Albuterol 2.5 MG/3 ML VIAL.NEB. INHALATION (06:07)
[2022-10-17 06:22] LABS: Absolute Lymphocyte Count 0.66 X10^3/uL (0.83-4.51); Absolute Neutrophil Count 7.8 X10^3/uL (2.0-7.7); Basophil# 0.04 X10^3/uL; Basophil% 0.4 % (0-1); Eosinophil# 0.61 X10^3/uL; Hematocrit 26.3 % (37-47); Hemoglobin 8.1 g/dL (12.0-15.0); Lymphocyte # 0.66 X10^3/ul (0.83-4.51); Lymphocyte % 6.4 % (19-41); Mean Corp Hgb Conc 30.8 g/dL (32-36); Mean Corpuscular Hgb 26.4 pg (27.0-32.0); Mean Corpuscular Volume 85.7 fL (81-99); Mean Platelet Vol. 8.9 fl (6.2-12.0); Monocyte# 1.08 X10^3/uL; Monocyte% 10.5 % (0-10); NRBC Flagged by Analyzer 0 % (0-5); Neutrophil # 7.79 X10^3/uL (2.7-7.7); Platelet Count 275 K/mm3 (150-450); RBC Distribution Width CV 16.8 % (11.6-14.6); RBC Distribution Width SD 52.9 fl (35.1-43.9); Red Blood Count 3.07 M/mm3 (4.2-5.4); White Blood Count 10.3 K/mm3 (4.4-11.0)
[2022-10-17 06:34] LABS: Anion Gap 8 (5-15); BUN 48 mg/dL (7-18); Calcium,Total 8.9 mg/dL (8.5-10.1); Chloride 111 mmol/L (98-107); EST Glomerular Filtration Rate 32 mL/min (>60); Est Glom Filt Rate - Afr Amer 39 mL/min (>60); Estimated Creatinine Clearance 18.34 ml/min; Glucose 146 mg/dL (74-106); Magnesium 1.9 mg/dL (1.6-2.6); Potassium 3.7 mmol/L (3.5-5.1); Sodium Level 142 mmol/L (136-145)
[2022-10-17] MEDS: MethylPREDNISolone 125 MG/2 ML Vial IV (06:47)
[2022-10-17 07:09] LABS: BNP,B-Type NATRIURETIC PEPTIDE 910.7 pg/mL (0-100)
--- NOTE | 2022-10-17 07:26 | ED.RN ---
PT. STOOD AT BEDSIDE TO ATTEMPT TO WALK WITH OXYGEN. PT. ON 4L NC AND SATTING 85%. PT. SOB.
--- NOTE | 2022-10-17 07:50 | EX.ED.DYSGE1 ---
HPI History of Present Illness Chief Complaint: Shortness of Breath Narrative Narrative: Patient is a 87-year-old female with past medical history of paroxysmal atrial fibrillation currently on Eliquis as well as history of heart failure requiring 2 L of nasal cannula oxygen and renal insufficiency as well as pulmonary hypertension. She has been in and out of the hospital since August. She states that last night she went to bed feeling normal then awoke this morning with increased shortness of breath despite wearing her normal 2 L. She states she tried to get up and go to the bathroom but with this motion her shortness of breath worsened. Secondary to this EMS was called to bring the patient in for evaluation. EMS states when they arrived she was on her normal 2 L but she was only satting in the mid 80s. They report they increased her oxygen level up to 6 to 8 L nasal cannula but there was still no improvement and therefore they placed on a nonrebreather and brought her to the hospital for evaluation [facility] Medical History Aortic sclerosis Atherosclerosis of coronary artery of [place] heart without angina pectoris Bilateral carotid artery stenosis Chronic combined systolic and diastolic CHF (congestive heart failure) Chronic kidney disease (CKD) Chronic kidney disease, stage 3 Chronic venous insufficiency Diabetes mellitus Diastolic CHF History of non-ST elevation myocardial infarction (NSTEMI) (09/17/21) History of transcatheter aortic valve replacement (TAVR) (05/18/17) Hyperlipidemia Hypertension associated with diabetes Hypoxia Ischemic cardiomyopathy Mitral annular calcification Nonrheumatic aortic (valve) stenosis Nonrheumatic mitral (valve) insufficiency Normocytic anemia Paroxysmal atrial fibrillation Renal artery stenosis Home Medications aspirin 81 mg chewable tablet 81 mg PO DAILY@0800 BLOOD THINNER 04/21/17 [History Last Taken 06/18/22] amlodipine 10 mg tablet 10 mg PO QHS BP 04/28/17 [History Last Taken 06/18/22] apixaban 2.5 mg tablet (Eliquis) 2.5 mg PO BID BLOOD THINNER 09/07/19 [History Last Taken 06/18/22] glimepiride 1 mg tablet 1 mg PO QHS SUGAR 06/19/22 [History Last Taken 06/18/22] glimepiride 2 mg tablet 2 mg PO DAILY SUGAR 06/19/22 [History Last Taken 06/18/22] losartan 50 mg tablet 50 mg PO BID BP 06/19/22 [History Last Taken 06/18/22] metoprolol succinate 25 mg tablet,extended release 24 hr 25 mg PO QHS hr 06/19/22 [History Last Taken 06/18/22] clopidogrel 75 mg tablet 75 mg PO DAILY 07/30/22 [History Last Taken Unknown] metoprolol succinate 100 mg tablet,extended release 24 hr 100 mg PO DAILY 07/30/22 [History Last Taken Unknown] atorvastatin 10 mg tablet 10 mg PO QHS #30 tabs 09/19/22 [Rx Last Taken Unknown] spironolactone 25 mg tablet 25 mg PO DAILY #30 tabs 09/19/22 [Rx Last Taken Unknown] furosemide 40 mg tablet (Lasix) 80 mg PO DAILY 10/02/22 [History Last Taken Unknown] insulin glargine 100 unit/mL (3 mL) subcutaneous pen (Lantus Solostar U-100 Insulin) 10 unit subcut DAILY 10/02/22 [History Last Taken Unknown] Allergy/AdvReac Type Severity Reaction Status Date / Time No Known Allergies Allergy Verified 10/02/22 19:14 Family History Sister Asthma Breast cancer Hypertension Hyperlipidemia Melanoma Father , From old age per patient. Denies specific medical problems. No problems noted. Mother , From old age per patient. Denies specific medical problems. No problems noted. Surgical History History of appendectomy History of coronary angioplasty (09/18/21) History of left heart catheterization (04/2017) History of percutaneous transluminal coronary angioplasty (~09/18/21) Social History household members: spouse Smoking Status: Never smoker alcohol intake: never substance use type: does not use caffeine: Yes Type: coffee Number of servings: 1 ROS ROS ED Constitutional Constitutional ED: Denies chills or fever(s) ENT ENT ED: Denies sore throat Cardiovascular Cardiovascular: Denies chest pain Respiratory/Chest Respiratory/Chest: Reports cough, dyspnea and dyspnea on exertion Gastrointestinal Gastrointestinal: Denies abdominal pain, diarrhea, nausea or vomiting Genitourinary Genitourinary ED: Denies dysuria Musculoskeletal Musculoskeletal: Denies myalgias Integumentary Denies rash Neurologic Neurologic: Denies headache(s) Hematologic/Lymphatic Hematologic/Lymphatic: Reports easy bleeding and easy bruising EXAM Physical Exam Const Vital Signs: 10/17/22 05:43 10/17/22 05:43 10/17/22 05:51 Temperature 97.6 F L Temperature Source Temporal Pulse Rate 98 Respiratory Rate 20 H Respiratory Effort Short of Breath Accessory Muscle Use Respiratory Depth Shallow Respiratory Pattern Tachypnea Blood Pressure 147/125 H Blood Pressure Mean 132 Pulse Ox 77 96 Oxygen Delivery Method Room Air Nasal Cannula Oxygen Flow Rate (L/min) 6 10/17/22 06:12 Temperature Temperature Source Pulse Rate 94 Respiratory Rate 20 H Respiratory Effort Respiratory Depth Respiratory Pattern Blood Pressure Blood Pressure Mean Pulse Ox Oxygen Delivery Method Oxygen Flow Rate (L/min) Positive well nourished and well developed General Appearance ED: well developed and pallor HEENT Reports dry mucous membranes HEENT Narrative: No tongue or lip swelling no oral lesions no airway edema or compromise Mouth ED: Yes dry mucous membranes Mouth: dry mucous membranes Eyes PERRL and EOMs intact bilaterally General Eye ED: Yes pale conjunctiva Neck supple and no JVD Resp Resp Narrative: Patient is tachypneic and breath sounds are diminished throughout she has crackles in the bilateral lobes with diffuse expiratory wheezing Cardio regular rate and regular rhythm Rate: other Other Details: Radial pulses are plus 2 out of 4 bilaterally are equal and symmetric GI normal to inspection, nondistended, normoactive bowel sounds, non-tender, non-distended and no masses GI Narrative: No pulsatile mass or fluid wave Auscultation: normoactive bowel sounds Palpation: soft Extremity normal to inspection Extremity Narrative: No asymmetric edema no pitting edema negative Homans' sign bilaterally Neuro oriented x3 and CN's II-XII intact bilaterally Sensorium / Orientation: alert Psych Psych Narrative: Patient has a flat affect Skin no rashes or lesions noted General Skin Exam: pallor MDM MDM MDM Narrative Medical decision making narrative: Jaylen presented to the ER in the high 70s on room air but typically needs at least 2 L nasal cannula. EMS reported that she was in the mid to low 80s on her normal oxygen when they arrived. Her lungs show changes concerning for pleural effusions and possible infection or COPD exacerbation as she also has diffuse wheeze. As she is pale and on a blood thinner there is also concern for acute on chronic anemia causing her symptoms. Patient blood work is obtained and shows hemoglobin 8.1 but chart review reveals this is near her baseline. Patient's kidney function is actually improved from previous visits but proBNP remains elevated at 910. Otherwise there is no severe electrolyte derangement. Chest x-ray shows changes consistent with heart failure and possible pneumonia. The patient does not have a fever however her white count is normal and based on her history and elevated proBNP this is most likely heart failure and not an infectious process so antibiotics will be held at this time. The patient's oxygen level was able to be dropped to 3 L keeping her sats in the mid 90s after treatment. However she was ambulated and as soon as she stood next to the bed desatted to 85% and felt very symptomatic. Therefore at this time as patient cannot even stand without severe shortness of breath and desaturation it is not safe to send her home so medicine was contacted. They evaluated the patient and do agree to place her in the hospital for further care at this time History & Record Review Discussion w/independent historian: EMS personnel, Patient and Significant other Lab Data Attestation: I reviewed the patient's lab results. Labs: Laboratory Results - last 24 hr 10/17/22 10/17/22 10/17/22 06:15 06:15 06:15 WBC 10.3 RBC 3.07 L Hgb 8.1 L Hct 26.3 L MCV 85.7 MCH 26.4 L MCHC 30.8 L RDW Std Deviation 52.9 H RDW Coeff of Jesi 16.8 H Plt Count 275 MPV 8.9 Immature Gran % (Auto) 0.700 Neut % (Auto) 76.0 H Lymph % (Auto) 6.4 L [place] % (Auto) 10.5 H Eos % (Auto) 6.0 H Baso % (Auto) 0.4 Absolute Neuts (auto) 7.8 H Absolute Lymphs (auto) 0.66 L Nucleated RBC % 0 Sodium 142 Potassium 3.7 Chloride 111 H Carbon Dioxide 23.0 Anion Gap 8 BUN 48 H Creatinine 1.60 H Estim Creat Clear Calc 18.34 Est GFR (MDRD) Af Amer 39 L Est GFR (MDRD) Non-Af 32 L BUN/Creatinine Ratio 30.0 H Glucose 146 H Calcium 8.9 Magnesium 1.9 B-Natriuretic Peptide 910.7 H Radiography Diagnostic Testing: Clinical Impression(s) from Imaging Studies Chest X-Ray 10/17/22 06:02 IMPRESSION: Patchy bilateral pulmonary infiltrates with small pleural effusions. Findings may indicate pneumonia. Electronically Signed: Froylan Malone MD at 6:55 EST , Chest x-ray as interpreted by the emergency medicine physician reveals bilateral pleural effusions with increased vascular congestion and questionable infiltrates in the bilateral lower lobes. Discharge Plan Dx/Rx/DC Orders Clinical Impression: Acute exacerbation of CHF (congestive heart failure), Paroxysmal atrial fibrillation, Acute and chronic respiratory failure with hypoxia, Current use of correction anticoagulation, Chronic anemia Disposition Disposition: Acute Care [facility]
[2022-10-17 08:21] LABS: Procalcitonin 0.32 ng/mL (0.00-0.09)
[2022-10-17] MEDS: Losartan Potassium 50 MG Tablet PO ×2 (10:34→21:10)
[2022-10-17] MEDS: APIXABAN 2.5 MG TABLET (WCH) PO ×2 (10:34→21:10)
[2022-10-17] MEDS: Furosemide 40 MG/4 ML Vial IV ×2 (10:35→21:10)
[2022-10-17] MEDS: Metoprolol(XL)Succ 100 MG Tablet PO (10:35)
[2022-10-17] MEDS: Clopidogrel Bisulfate 75 MG Tablet PO (10:51)
[2022-10-17] MEDS: Insulin Lispro 100 UNIT/ML INSULN.PEN SC ×3 (10:54→21:10)
[2022-10-17 11:15] LABS: Bedside Glucose 229 mg/dL (74-106)
[2022-10-17] MEDS: 0.9% Saline Lock 10 ML Syringe IV ×2 (15:03→21:10)
[2022-10-17] MEDS: Furosemide 20 MG/2 ML VIAL IV (15:03)
[2022-10-17] MEDS: Potassium Chloride Oral Tablet 20 MEQ PO (15:05)
--- NOTE | 2022-10-17 15:07 | CHAPLAIN ---
Type of Pastoral Visit _x__ Initial Visit ___ Follow-up Visit ___ On-call Visit ___ General Patient Visit ___ Spiritual Assessment ___ Family Conference ___ Bereavement ___ Rapid Response ___ Code Blue ___ Other (describe below) Pastoral Care Referral From _x__ Patient ___ Family ___ Nurse ___ Physician ___ Medical Assistant Secretary ___ Oil Prospecting Observer ___ Other (describe below) Sacrament/Intervention _x__ Active listening ___ Anointing ___ Faith ___ Bereavement ___ Communion ___ [place] exploration ___ ___ Life review _x__ Prayer ___ Reconciliation ___ Sacrament of Sick _x__ Supportive presence ___ Wedding ___ Other (describe below) Pastoral Comments patient is a repeat admission; pt reviews her current condition; pt talks about needing a foreign language instructor and how to get one; pt is referred to CM; pt expresses some frustration or desire to find someone who can 'fix' this problem; pt welcomes presence and prayer
[2022-10-17 17:11] LABS: Bedside Glucose 496 mg/dL (74-106)
[2022-10-17] MEDS: Insulin Glargine-YFGN 100 UNIT/ML Pen 15 UNIT SC (17:49)
--- NOTE | 2022-10-17 19:32 | HP.PCM.HOS_ITS ---
HPI - General General Date of Admission: 10/17/22 Date of Service: 10/17/22 Chief Complaint: Shortness of breath HPI Narrative PHUC AIKEN, is a 87 F who presents to the emergency room today at [facility] for evaluation of shortness of breath, patient states she awoke approximately 330 to use the bathroom this morning and became very short of breath, patient is on chronic oxygen at home at 3 L, patient required oxygen at 6 L on admission to the emergency room. Work-up in the emergency room included a chest x-ray showed bilateral infiltrates consistent with CHF, patient's white blood cell count was normal, she was afebrile, creatinine was elevated at 1.6 and BUN was elevated at 48. Patient's beta natruretic peptide was elevated at 910, glucose was 146. Patient was admitted to PCU for acute on chronic diastolic CHF, she will receive IV Lasix, pulse ox will be monitored, she will be monitored on telemetry. I do not feel the patient needs cardiac enzymes cycled, blood sugars will be monitored and sliding scale insulin used as needed. 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) Hyperlipidemia Hypertension associated with diabetes Hypoxia Ischemic cardiomyopathy Mitral annular calcification Nonrheumatic aortic (valve) stenosis Nonrheumatic mitral (valve) insufficiency Normocytic anemia Paroxysmal atrial fibrillation Renal artery stenosis Home Medications aspirin 81 mg chewable tablet 81 mg PO DAILY@0800 BLOOD THINNER 04/21/17 [History Last Taken 06/18/22] amlodipine 10 mg tablet 10 mg PO QHS BP 04/28/17 [History Last Taken 06/18/22] apixaban 2.5 mg tablet (Eliquis) 2.5 mg PO BID BLOOD THINNER 09/07/19 [History Last Taken 06/18/22] glimepiride 1 mg tablet 1 mg PO QHS SUGAR 06/19/22 [History Last Taken 06/18/22] glimepiride 2 mg tablet 2 mg PO DAILY SUGAR 06/19/22 [History Last Taken 06/18/22] losartan 50 mg tablet 50 mg PO BID BP 06/19/22 [History Last Taken 06/18/22] metoprolol succinate 25 mg tablet,extended release 24 hr 25 mg PO QHS hr 06/19/22 [History Last Taken 06/18/22] clopidogrel 75 mg tablet 75 mg PO DAILY 07/30/22 [History Last Taken Unknown] metoprolol succinate 100 mg tablet,extended release 24 hr 100 mg PO DAILY 07/30/22 [History Last Taken Unknown] furosemide 40 mg tablet (Lasix) 80 mg PO DAILY 10/02/22 [History Last Taken Unknown] insulin glargine 100 unit/mL (3 mL) subcutaneous pen (Lantus Solostar U-100 Insulin) 10 unit subcut DAILY 10/02/22 [History Last Taken Unknown] Allergy/AdvReac Type Severity Reaction Status Date / Time No Known Allergies Allergy Verified 10/02/22 19:14 Family History Sister Asthma Breast cancer Hypertension Hyperlipidemia Melanoma Father , From old age per patient. Denies specific medical problems. No problems noted. Mother , From old age per patient. Denies specific medical problems. No problems noted. Surgical History History of appendectomy History of coronary angioplasty (09/18/21) History of left heart catheterization (04/2017) History of percutaneous transluminal coronary angioplasty (~09/18/21) Social History household members: spouse Smoking Status: Never smoker alcohol intake: never substance use type: does not use caffeine: Yes Type: coffee Number of servings: 1 Vital Signs Vital Signs Vital Signs: 10/17/22 05:43 10/17/22 05:43 10/17/22 05:51 Temperature 97.6 F L Temperature Source Temporal Pulse Rate 98 Pulse Strength Respiratory Rate 20 H Respiratory Effort Short of Breath Accessory Muscle Use Respiratory Depth Shallow Respiratory Pattern Tachypnea Blood Pressure 147/125 H Blood Pressure Mean 132 Blood Pressure Source Blood Pressure Position Blood Pressure Location Pulse Ox 77 96 Oxygen Delivery Method Room Air Nasal Cannula Oxygen Flow Rate (L/min) 6 10/17/22 06:12 10/17/22 08:02 10/17/22 09:23 Temperature 97.2 F L Temperature Source Temporal Pulse Rate 94 104 H Pulse Strength Normal (2+) Respiratory Rate 20 H 30 H Respiratory Effort Respiratory Depth Respiratory Pattern Blood Pressure 121/58 H Blood Pressure Mean 79 Blood Pressure Source Blood Pressure Position Blood Pressure Location Pulse Ox 95 Oxygen Delivery Method Nasal Cannula Oxygen Flow Rate (L/min) 4 10/17/22 09:23 10/17/22 09:30 10/17/22 10:35 Temperature 98.6 F Temperature Source Oral Pulse Rate 96 98 Pulse Strength Respiratory Rate 19 H Respiratory Effort Normal Non-Labored Respiratory Depth Normal Respiratory Pattern Normal Blood Pressure 128/92 H Blood Pressure Mean 104 Blood Pressure Source Monitor Blood Pressure Position Semi-Fowlers Blood Pressure Location Right Arm Pulse Ox 98 Oxygen Delivery Method Nasal Cannula Nasal Cannula Oxygen Flow Rate (L/min) 4 4 10/17/22 09:59 10/17/22 11:56 10/17/22 14:00 Temperature Temperature Source Pulse Rate Pulse Strength Respiratory Rate Respiratory Effort Normal Non-Labored Respiratory Depth Normal Respiratory Pattern Normal Blood Pressure Blood Pressure Mean Blood Pressure Source Blood Pressure Position Blood Pressure Location Pulse Ox Oxygen Delivery Method Nasal Cannula Oxygen Flow Rate (L/min) 4 4 3 10/17/22 15:15 10/17/22 15:15 10/17/22 15:15 Temperature 97.6 F L Temperature Source Oral Pulse Rate 97 Pulse Strength Respiratory Rate 18 16 Respiratory Effort Normal Respiratory Depth Normal Respiratory Pattern Normal Blood Pressure 121/88 H Blood Pressure Mean 99 Blood Pressure Source Monitor Blood Pressure Position Sitting Blood Pressure Location Right Arm Pulse Ox 95 97 97 Oxygen Delivery Method Nasal Cannula Nasal Cannula Nasal Cannula Oxygen Flow Rate (L/min) 3 3 3 Weight Weight: 64.8 kg Body Mass Index (BMI) 26.9 Physical Exam Const alert, oriented x3, no apparent distress and average body habitus Constitutional Narrative: Patient appears her stated age, she is a poor informant General Appearance: cooperative, well kempt and well developed Orientation / Consciousness: awake, oriented to person, oriented to place and oriented to time HEENT normocephalic and moist oral mucous membranes Eyes PERRL, EOMs intact bilaterally and conjunctivae normal Neck supple, no JVD and thyroid normal General: trachea midline Resp normal respiratory effort, no retractions, no use of accessory muscles and clear to auscultation bilaterally Auscultation: Negative for rales, rhonchi or wheezes Cardio regular rate, regular rhythm, S1 normal heart sound, S2 normal heart sound, no rub and no gallops Cardio Narrative: 2/6 systolic murmur was noted at the apex and left sternal border GI normal to inspection, nondistended, normoactive bowel sounds, soft to palpation, non-tender and non-distended Extremity no clubbing, cyanosis or edema Skin no rashes or lesions noted General Skin Exam: no breakdown Neuro oriented x3, CN's II-XII intact bilaterally, moves all extremities, no focal motor deficits and no sensory deficits noted Sensorium / Orientation: awake, alert, oriented to person and oriented to place Speech: speech normal Psych affect normal Results Lab / Micro Data Result Diagrams: 10/17/22 06:15 10/18/22 06:00 Labs: Laboratory Results - last 24 hr 10/17/22 06:15: WBC 10.3, RBC 3.07 L, Hgb 8.1 L, Hct 26.3 L, MCV 85.7, MCH 26.4 L, MCHC 30.8 L, RDW Std Deviation 52.9 H, RDW Coeff of Jesi 16.8 H, Plt Count 275, MPV 8.9, Immature Gran % (Auto) 0.700, Neut % (Auto) 76.0 H, Lymph % (Auto) 6.4 L, [place] % (Auto) 10.5 H, Eos % (Auto) 6.0 H, Baso % (Auto) 0.4, Absolute Neuts (auto) 7.8 H, Absolute Lymphs (auto) 0.66 L, Nucleated RBC % 0 10/17/22 06:15: Sodium 142, Potassium 3.7, Chloride 111 H, Carbon Dioxide 23.0, Anion Gap 8, BUN 48 H, Creatinine 1.60 H, Estim Creat Clear Calc 18.34, Est GFR (MDRD) Af Amer 39 L, Est GFR (MDRD) Non-Af 32 L, BUN/Creatinine Ratio 30.0 H, Glucose 146 H, Calcium 8.9, Magnesium 1.9 10/17/22 06:15: B-Natriuretic Peptide 910.7 H 10/17/22 07:15: Procalcitonin 0.32 H 10/17/22 10:52: POC Glucose 229 H 10/17/22 16:44: POC Glucose 496 H* Radiology Impression Chest X-Ray 10/17/22 06:02 IMPRESSION: Patchy bilateral pulmonary infiltrates with small pleural effusions. Findings may indicate pneumonia. Electronically Signed: Froylan Malone MD at 6:55 EST , Assessment & Plan Assessment/Plan (1) Acute exacerbation of CHF (congestive heart failure): PLAN: Plan 1. Acute exacerbation of diastolic CHF-patient will be admitted to PCU, IV Lasix will be administered, labs will be monitored, I do not feel patient needs a repeat echocardiogram at this time #2 acute hypoxia on chronic hypoxic respiratory failure secondary to #1-pulse ox will be monitored #3 paroxysmal atrial fibrillation-patient is on rate limiting medications and anticoagulant #4 hypercoagulable state secondary to #3-patient is on Eliquis #5 essential hypertension-patient is on amlodipine #6 type 2 diabetes-blood sugars will be monitored by fingerstick blood sugars, sliding scale insulin to be administered as needed #7 coronary artery disease-stable at this time #8 valvular heart disease-patient has a past history of TAVR of the aortic valve Total clinical time spent by myself addressing the patient's medical issues, reviewing all the data, and collaborating with patient's care team: 75 minutes Charges/Coding Visit Charges Inpatient E&M: 86388 Init Hosp L3
[2022-10-17] MEDS: amLODIPine 10 MG Tablet PO (21:10)
[2022-10-17] MEDS: Metoprolol(XL)Succ 25 MG Tablet PO (21:10)
[2022-10-17 22:50] LABS: Bedside Glucose 345 mg/dL (74-106)
[2022-10-18] VITALS (12 sets, daily range): BP systolic 129–137; BP diastolic 58–62; PULSE 76–89; RESP 18; TEMP 36.6–36.8; O2SAT 93–99
[2022-10-18] MEDS: 0.9% Saline Lock 10 ML Syringe IV ×3 (06:15→21:13)
[2022-10-18] MEDS: Furosemide 40 MG/4 ML Vial IV ×3 (06:15→21:10)
[2022-10-18] MEDS: Insulin Lispro 100 UNIT/ML INSULN.PEN SC ×4 (06:18→21:15)
[2022-10-18 06:45] LABS: Bedside Glucose 177 mg/dL (74-106)
[2022-10-18 07:19] LABS: Anion Gap 8 (5-15); BUN 55 mg/dL (7-18); BUN/Creat Ratio 37.9 RATIO (10-20); Calcium,Total 9.1 mg/dL (8.5-10.1); Chloride 106 mmol/L (98-107); Creatinine, Serum 1.45 mg/dL (0.55-1.02); EST Glomerular Filtration Rate 36 mL/min (>60); Est Glom Filt Rate - Afr Amer 44 mL/min (>60); Estimated Creatinine Clearance 20.24 ml/min; Glucose 200 mg/dL (74-106); Potassium 3.7 mmol/L (3.5-5.1); Sodium Level 137 mmol/L (136-145)
[2022-10-18] MEDS: APIXABAN 2.5 MG TABLET (WCH) PO ×2 (09:23→21:10)
[2022-10-18] MEDS: Losartan Potassium 50 MG Tablet PO ×2 (09:24→21:10)
[2022-10-18] MEDS: Aspirin 81 MG TAB.CHEW PO (09:24)
[2022-10-18] MEDS: Metoprolol(XL)Succ 100 MG Tablet PO (09:24)
[2022-10-18] MEDS: Potassium Chloride Oral Tablet 20 MEQ PO ×2 (09:24→16:59)
[2022-10-18] MEDS: Clopidogrel Bisulfate 75 MG Tablet PO (09:24)
[2022-10-18] MEDS: Insulin Glargine-YFGN 100 UNIT/ML Pen 15 UNIT SC ×2 (12:07→21:16)
[2022-10-18 12:30] LABS: Bedside Glucose 346 mg/dL (74-106)
--- NOTE | 2022-10-18 13:45 | CASEMGMT ---
[facility] Readmission Note Previous Admission:?10/03/22-10/05/22? Diagnosis:?hyperkalemia, ANALISA DC Disposition: Home with?OP therapy rx and CCN referral Current Admission? Current Diagnosis: CHF Patient is a 87-year-old female with past medical history of paroxysmal atrial fibrillation currently on Eliquis as well as history of heart failure requiring 2 L of nasal cannula oxygen and renal insufficiency as well as pulmonary hypertension. Pt with multiple hospital admissions since August. Pt reports she was unable to breathe at home therefore brought into the hospital. [facility] in to pt room, pt sitting in chair with at bedside. Pt reports she had followed up with her PCP since the last hospitalization and she recently had her lasix dose decreased. Pt states she does weigh herself daily and has only noted that her weight changes within a pound or 2. Pt reports the CCN is coming out to see her but they are on spring break for the next 3 weeks. She reports she did do therapy at [facility] but was unable to continue d/t pain in her knee. Pt denies any homegoing needs. She does not feel she needs CCN but encouraged her to keep this program to try and help keep her at home. Pt denies need for therapy. She has a walker at home, her states he just lowered it for her and she should be able to use it now. DC Plan: Home with CCN, green sheet on chart in case pt needs increased oxygen rx.
[2022-10-18 17:25] LABS: Bedside Glucose 345 mg/dL (74-106)
--- NOTE | 2022-10-18 18:03 | PCM.PN.HOSP ---
Reason for Visit Reason for Visit: Diagnoses Heart failure, unspecified (10/17/22) Subjective Subjective In and examined today, she does not appear to be in any respiratory distress. She is alert and has no complaints of any chest pain. Patient is on 2 L of oxygen via nasal cannula. Objective Data Objective Data Vital Signs: Vital Signs Temp Pulse Resp BP Pulse Ox O2 Del Method O2 Flow Rate 97.8 F 88 18 130/60 H 96 Room Air 2 10/18/22 14:45 10/18/22 14:45 10/18/22 14:45 10/18/22 14:45 10/18/22 15:10 10/18/22 14:53 10/18/22 15:10 Oxygen Flow Rate (L/min) 2 Oxygen Delivery Method Room Air Weight: 64.8 kg Body Mass Index (BMI) 26.9 Intake & Output: Intake and Output for Last 24 Hours 10/16/22 10/17/22 10/18/22 23:59 23:59 23:59 Intake Total 400 / 400 640 / 640 Output Total 1050 / 1050 900 / 900 Balance -650 / -650 -260 / -260 Lab / Micro Data Result Diagrams: 10/17/22 06:15 10/18/22 06:00 Labs: Laboratory Results - last 24 hr 10/17/22 21:04: POC Glucose 345 H 10/18/22 06:00: Sodium 137, Potassium 3.7, Chloride 106, Carbon Dioxide 23.0, Anion Gap 8, BUN 55 H, Creatinine 1.45 H, Estim Creat Clear Calc 20.24, Est GFR (MDRD) Af Amer 44 L, Est GFR (MDRD) Non-Af 36 L, BUN/Creatinine Ratio 37.9 H, Glucose 200 H, Calcium 9.1 10/18/22 06:17: POC Glucose 177 H 10/18/22 12:06: POC Glucose 346 H 10/18/22 16:57: POC Glucose 345 H Physical Exam Narrative alert, oriented x3, no apparent distress and average body habitus Constitutional Narrative: Patient appears her stated age, she is a poor informant General Appearance: cooperative, well kempt and well developed Orientation / Consciousness: awake, oriented to person, oriented to place and oriented to time HEENT normocephalic and moist oral mucous membranes Eyes PERRL, EOMs intact bilaterally and conjunctivae normal Neck supple, no JVD and thyroid normal General: trachea midline Resp normal respiratory effort, no retractions, no use of accessory muscles and clear to auscultation bilaterally Auscultation: Negative for rales, rhonchi or wheezes Cardio regular rate, regular rhythm, S1 normal heart sound, S2 normal heart sound, no rub and no gallops Cardio Narrative: 2/6 systolic murmur was noted at the apex and left sternal border GI normal to inspection, nondistended, normoactive bowel sounds, soft to palpation, non-tender and non-distended Extremity no clubbing, cyanosis or edema Skin no rashes or lesions noted General Skin Exam: no breakdown Neuro oriented x3, CN's II-XII intact bilaterally, moves all extremities, no focal motor deficits and no sensory deficits noted Sensorium / Orientation: awake, alert, oriented to person and oriented to place Speech: speech normal Psych affect normal Assessment & Plan Assessment/Plan (1) Acute exacerbation of CHF (congestive heart failure): PLAN: Plan 1. Acute exacerbation of diastolic CHF-continue IV Lasix at this time, I will repeat her chest x-ray tomorrow #2 acute hypoxia on chronic hypoxic respiratory failure secondary to #1-pulse ox will be monitored #3 paroxysmal atrial fibrillation-patient is on rate limiting medications and anticoagulant #4 hypercoagulable state secondary to #3-patient is on Eliquis #5 essential hypertension-patient is on amlodipine #6 type 2 diabetes-blood sugars will be monitored by fingerstick blood sugars, sliding scale insulin to be administered as needed #7 coronary artery disease-stable at this time #8 valvular heart disease-patient has a past history of TAVR of the aortic valve Total clinical time spent by myself addressing the patient's medical issues, reviewing all the data, and collaborating with patient's care team: 35 minutes Charges/Coding Visit Charges Inpatient E&M: 23423 Subs Hosp L2
[2022-10-18] MEDS: amLODIPine 10 MG Tablet PO (21:10)
[2022-10-18] MEDS: Metoprolol(XL)Succ 25 MG Tablet PO (21:10)
[2022-10-18 23:06] LABS: Bedside Glucose 178 mg/dL (74-106)
[2022-10-19] VITALS (7 sets, daily range): BP systolic 123–142; BP diastolic 55–80; PULSE 70–76; RESP 16; TEMP 36.4–36.9; O2SAT 91–100
[2022-10-19] MEDS: Furosemide 40 MG/4 ML Vial IV ×2 (06:13→14:44)
[2022-10-19] MEDS: 0.9% Saline Lock 10 ML Syringe IV ×2 (06:13→14:50)
--- NOTE | 2022-10-19 06:38 | RAD_ITS ---
HISTORY: CHF. TECHNIQUE: XR Chest 1 View. COMPARISON: 10/17/2022. FINDINGS: LINES/TUBES: None. CARDIOMEDIASTINAL BORDERS: Stable with aortic valve replacement. LUNGS: Marked interval decrease in mixed interstitial and alveolar opacities. Calcified granulomas of the right upper lobe again seen. PLEURA: Decreased mild bilateral pleural effusions. RAD/Chest 1 View IMPRESSION: Decreased pleural effusions with decreased pulmonary edema or pneumonia. Electronically Signed: Cordelia Esteves MD at 8:35 EST ,
[2022-10-19 07:01] LABS: Bedside Glucose 59 mg/dL (74-106)
[2022-10-19 07:01] LABS: Bedside Glucose 49 mg/dL (74-106)
[2022-10-19 07:06] LABS: Bedside Glucose 80 mg/dL (74-106)
[2022-10-19] MEDS: Aspirin 81 MG TAB.CHEW PO (09:07)
[2022-10-19] MEDS: Losartan Potassium 50 MG Tablet PO (09:08)
[2022-10-19] MEDS: Clopidogrel Bisulfate 75 MG Tablet PO (09:08)
[2022-10-19] MEDS: Potassium Chloride Oral Tablet 20 MEQ PO (09:08)
[2022-10-19] MEDS: Metoprolol(XL)Succ 100 MG Tablet PO (09:08)
[2022-10-19] MEDS: APIXABAN 2.5 MG TABLET (WCH) PO (09:08)
[2022-10-19] MEDS: Insulin Glargine-YFGN 100 UNIT/ML Pen 15 UNIT SC (11:26)
[2022-10-19 11:50] LABS: Bedside Glucose 133 mg/dL (74-106)
--- NOTE | 2022-10-19 14:36 | DCINST_ITS ---
Discharge Instructions Diet Discharge Diet: 1800 Calorie Control Diet Activity Discharge Activity: Return to Normal Activity Weight Bearing Status: Full weight bearing Follow Up Care Test Results: Test results from this visit will be discussed in further detail at your follow- up appointment, if applicable. Discharge Plan Admission Admit Date/Time: 10/17/22 09:29 Primary Reason for Your Visit: congestive heart failure Attending Provider: Ventura Hernandez Primary Care Provider: Ventura Baron Discharge Orders/Prescriptions Prescriptions: New potassium chloride [Klor-Con M20] 20 mEq Tablet,Er Particles/Crystals 20 meq PO BIDCM Qty: 60 0RF furosemide [Lasix] 20 mg tablet 60 mg PO BID Qty: 180 0RF ferrous sulfate 325 mg (65 mg iron) tablet 325 mg PO BID Qty: 60 0RF Continued Eliquis 2.5 mg tablet 2.5 mg PO BID Hold Instructions: Resume on 10/17/21. aspirin 81 MG tablet,chewable 81 mg PO DAILY@0800 Label Comments: heart health amlodipine 10 MG tablet 10 mg PO QHS Label Comments: BLOOD PRESSURE/HEART losartan 50 mg tablet 50 mg PO BID Hold Instructions: Resume on 10/06/22. glimepiride 2 mg tablet 2 mg PO DAILY Rx Instructions: 2MG in AM and 1mg QHS glimepiride 1 mg tablet 1 mg PO QHS metoprolol succinate 25 mg tablet extended release 24 hr 25 mg PO QHS metoprolol succinate 100 mg Tablet Extended Release 24 Hr 100 mg PO DAILY clopidogrel 75 mg Tablet 75 mg PO DAILY Changed insulin glargine [Lantus Solostar U-100 Insulin] 100 unit/mL (3 mL) insulin pen 15 unit SUBCUT DAILY Qty: 1 0RF Label Comments: INJECT 10 UNITS SUBCUTANEOUSLY ONCE DAILY Discontinued furosemide [Lasix] 40 mg tablet 80 mg PO DAILY Hold Instructions: Resume on 10/07/22. Rx Instructions: 40 mg orally take 2 tabs in the am and 2 taba in the pm; Referrals / Follow Up: Ventura Baron DO [Primary Care Provider] - Within 1 Week Disposition Disposition (needs filled in before D/C Order can be placed): Home, Self Care
--- NOTE | 2022-10-19 15:11 | DS.PCM_ITS ---
Providers Date of Admission: 10/17/22 Date of Discharge: 10/19/22 Primary Care Physician: Dr. Ventura Baron DO Reason For Visit: CONGESTIVE HEART FAILURE Diagnosis Discharge Diagnosis (1) Acute exacerbation of CHF (congestive heart failure): Status: Chronic Code(s): I50.9 - Heart failure, unspecified Plan 1. Acute exacerbation of diastolic CHF-continue IV Lasix at this time, I will repeat her chest x-ray tomorrow #2 acute hypoxia on chronic hypoxic respiratory failure secondary to #1-pulse ox will be monitored #3 paroxysmal atrial fibrillation-patient is on rate limiting medications and anticoagulant #4 hypercoagulable state secondary to #3-patient is on Eliquis #5 essential hypertension-patient is on amlodipine #6 type 2 diabetes-blood sugars will be monitored by fingerstick blood sugars, sliding scale insulin to be administered as needed #7 coronary artery disease-stable at this time #8 valvular heart disease-patient has a past history of TAVR of the aortic valve #9 severe pulmonary hypertension Total clinical time spent by myself addressing the patient's medical issues, re viewing all the data, and collaborating with patient's care team: 35 minutes Medications at Discharge Home Medications aspirin 81 mg chewable tablet 81 mg PO DAILY@0800 BLOOD THINNER 04/21/17 amlodipine 10 mg tablet 10 mg PO QHS BP 04/28/17 apixaban 2.5 mg tablet (Eliquis) 2.5 mg PO BID BLOOD THINNER 09/07/19 glimepiride 1 mg tablet 1 mg PO QHS SUGAR 06/19/22 glimepiride 2 mg tablet 2 mg PO DAILY SUGAR 06/19/22 losartan 50 mg tablet 50 mg PO BID BP 06/19/22 metoprolol succinate 25 mg tablet,extended release 24 hr 25 mg PO QHS hr 06/19/22 clopidogrel 75 mg tablet 75 mg PO DAILY 07/30/22 metoprolol succinate 100 mg tablet,extended release 24 hr 100 mg PO DAILY 07/30/22 ferrous sulfate 325 mg (65 mg iron) tablet 325 mg PO BID #60 tabs 10/19/22 furosemide 20 mg tablet (Lasix) 60 mg PO BID #180 tabs 10/19/22 insulin glargine 100 unit/mL (3 mL) subcutaneous pen (Lantus Solostar U-100 Insulin) 15 unit (0.15 mL) subcut DAILY #1 mL 10/19/22 potassium chloride 20 mEq tablet,extended release(part/cryst) (Klor-Con M) 20 meq PO BIDCM #60 tabs 10/19/22 Hospital Course Operations None Procedures None Summary of Care Provided Minutes Spent on Discharge: 32 Hospital Course: This 87-year-old white female was seen in the emergency room at [facility] complaining of increasing shortness of breath over the last several hours prior to being seen in the emergency room. Patient is on oxygen at home at 2 L/min for chronic congestive heart failure. Work-up in the emergency room included a chest x-ray which showed increased markings suggestive of congestive heart failure, patient required increased oxygen in the senior living over her 2 L baseline at home to maintain her pulse ox over 90%. Patient was admitted to PCU for acute on chronic diastolic congestive heart failure, she received IV Lasix and her oxygen was weaned. On 10/19/2022, patient was seen and examined: On examination she appeared in good health and spirits, she does not appear to be in any distress. Vital signs as documented. Skin warm and dry and without overt rashes. Neck without JVD, thyroid appears normal, trachea is midline, neck is supple. Lungs clear, normal air movement was noted. Heart exam notable for regular rhythm, normal sounds and absence of murmurs, rubs or gallops. Abdomen unremarkable and without evidence of organomegaly, masses, or abdominal aortic enlargement, bowel sounds are present in all 4 quadrants, no abdominal tenderness was noted. Extremities nonedematous, no cyanosis was noted, no clubbing was noted. Neuro: Cranial nerves II through XII are grossly intact, no focal motor deficits were noted, sensation to light touch and pinprick is intact, motor exam 5/5 throughout. Psych: Patient is alert and oriented x3, she does not appear anxious or depressed, she does not appear agitated. Patient appears stable for discharge on 10/19/2022, at the time of discharge, patient did not require any oxygen ambulating or at rest. Weight / BMI Weight Weight: 64.8 kg Body Mass Index (BMI) 26.9 ABG / Lab / Microbiology Data Result Diagrams: 10/17/22 06:15 10/18/22 06:00 Laboratory: Laboratory Results - last 24 hr 10/18/22 16:57: POC Glucose 345 H 10/18/22 21:14: POC Glucose 178 H 10/19/22 06:09: POC Glucose 49 L 10/19/22 06:28: POC Glucose 59 L 10/19/22 06:45: POC Glucose 80 10/19/22 11:23: POC Glucose 133 H Radiography Diagnostic Testing: Radiology Impression Chest X-Ray 10/19/22 06:38 IMPRESSION: Decreased pleural effusions with decreased pulmonary edema or pneumonia. Electronically Signed: Cordelia Esteves MD at 8:35 EST , D/C Instructions Discharge Diet: 1800 Calorie Control Diet Weight Bearing Status: Full weight bearing Meaningful Use Info Meaningful Use Diagnoses (Choose all that apply): CHF CHF MALENA/ARB ordered at discharge?: Yes Documented LVEF (%): 65 Discharge Plan Admission Admit Date/Time: 10/17/22 09:29 Primary Reason for Your Visit: congestive heart failure Attending Provider: Ventura Hernandez Primary Care Provider: Ventura Baron Discharge Orders/Prescriptions Prescriptions: New potassium chloride [Klor-Con M20] 20 mEq Tablet,Er Particles/Crystals 20 meq PO BIDCM Qty: 60 0RF furosemide [Lasix] 20 mg tablet 60 mg PO BID Qty: 180 0RF ferrous sulfate 325 mg (65 mg iron) tablet 325 mg PO BID Qty: 60 0RF Continued Eliquis 2.5 mg tablet 2.5 mg PO BID Hold Instructions: Resume on 10/17/21. aspirin 81 MG tablet,chewable 81 mg PO DAILY@0800 Label Comments: heart health amlodipine 10 MG tablet 10 mg PO QHS Label Comments: BLOOD PRESSURE/HEART losartan 50 mg tablet 50 mg PO BID Hold Instructions: Resume on 10/06/22. glimepiride 2 mg tablet 2 mg PO DAILY Rx Instructions: 2MG in AM and 1mg QHS glimepiride 1 mg tablet 1 mg PO QHS metoprolol succinate 25 mg tablet extended release 24 hr 25 mg PO QHS metoprolol succinate 100 mg Tablet Extended Release 24 Hr 100 mg PO DAILY clopidogrel 75 mg Tablet 75 mg PO DAILY Changed insulin glargine [Lantus Solostar U-100 Insulin] 100 unit/mL (3 mL) insulin pen 15 unit SUBCUT DAILY Qty: 1 0RF Label Comments: INJECT 10 UNITS SUBCUTANEOUSLY ONCE DAILY Discontinued furosemide [Lasix] 40 mg tablet 80 mg PO DAILY Hold Instructions: Resume on 10/07/22. Rx Instructions: 40 mg orally take 2 tabs in the am and 2 taba in the pm; Referrals / Follow Up: Ventura Baron DO [Primary Care Provider] - Within 1 Week Disposition Disposition (needs filled in before D/C Order can be placed): Home, Self Care Charges/Coding Visit Charges Inpatient E&M: 36185 Disch Hosp >30min
== END 2022-10-19 16:07 | disposition home or self-care (01) | DRG 291 ==
LOC: ED 08:01 → PCU 10:19
PROVIDERS: Admitting Provider Internal Medicine; Emergency Provider Emergency Medicine; PCP Family Medicine; Visit Provider Internal Medicine
DX: I13.0 Hypertensive heart and chronic kidney disease with heart failure and stage 1 through stage 4 chronic kidney disease, or unspecified chronic kidney disease (principal); J96.21 Acute and chronic respiratory failure with hypoxia; I50.33 Acute on chronic diastolic (congestive) heart failure; D68.59 Other primary thrombophilia; J44.1 Chronic obstructive pulmonary disease with (acute) exacerbation; I27.20 Pulmonary hypertension, unspecified; I48.0 Paroxysmal atrial fibrillation; E11.22 Type 2 diabetes mellitus with diabetic chronic kidney disease; N18.30 Chronic kidney disease, stage 3 unspecified; I25.5 Ischemic cardiomyopathy; E78.5 Hyperlipidemia, unspecified; I25.10 Atherosclerotic heart disease of native coronary artery without angina pectoris; D64.9 Anemia, unspecified; I25.2 Old myocardial infarction; Z79.02 Long term (current) use of antithrombotics/antiplatelets; Z79.84 Long term (current) use of oral hypoglycemic drugs; Z79.82 Long term (current) use of aspirin; Z79.01 Long term (current) use of anticoagulants; Z95.2 Presence of prosthetic heart valve
CPT/HCPCS: 36415; 71045; 80048; 82962; 83735; 83880; 84145; 85025; 93005; 94640; 97110; 97162; 97166; 97530; 97535; 97802; 99252; 99285; A4216; G0463; J1940

== ENCOUNTER → 2023-02-09 | Outpatient (CLI) | payer MEDICARE, OTHER, SELFPAY ==
[2023-02-09 13:01] LABS: Absolute Lymphocyte Count 1.16 X10^3/uL (0.83-4.51); Absolute Neutrophil Count 5.1 X10^3/uL (2.0-7.7); Basophil# 0.04 X10^3/uL; Basophil% 0.5 % (0-1); Eosinophil# 0.24 X10^3/uL; Eosinophils% 3.2 % (0-5); Hematocrit 40.4 % (37-47); Hemoglobin 13.3 g/dL (12.0-15.0); Lymphocyte # 1.16 X10^3/ul (0.83-4.51); Lymphocyte % 15.6 % (19-41); Mean Corp Hgb Conc 32.9 g/dL (32-36); Mean Corpuscular Hgb 28.7 pg (27.0-32.0); Mean Corpuscular Volume 87.3 fL (81-99); Mean Platelet Vol. 9.8 fl (6.2-12.0); Monocyte# 0.87 X10^3/uL; Monocyte% 11.7 % (0-10); NRBC Flagged by Analyzer 0 % (0-5); Neutrophil % 68.7 % (47-70); Platelet Count 203 K/mm3 (150-450); RBC Distribution Width CV 13.6 % (11.6-14.6); RBC Distribution Width SD 43.1 fl (35.1-43.9); Red Blood Count 4.63 M/mm3 (4.2-5.4); White Blood Count 7.4 K/mm3 (4.4-11.0)
[2023-02-09 13:27] LABS: BNP,B-Type NATRIURETIC PEPTIDE 205.7 pg/mL (0-100)
[2023-02-09 13:30] LABS: ALB/GLOB Ratio 0.8 RATIO (0.9-2.4); AST(SGOT) 13 U/L (15-37); Alanine Aminotransfer ALT/SGPT 17 U/L (13-56); Albumin, Serum 3.4 g/dL (3.2-5.0); Alkaline Phosphatase 177 U/L (45-117); Anion Gap 5 (5-15); BUN 48 mg/dL (7-18); BUN/Creat Ratio 21.4 RATIO (10-20); Calcium,Total 9.6 mg/dL (8.5-10.1); Chloride 107 mmol/L (98-107); Creatinine, Serum 2.24 mg/dL (0.55-1.02); EST Glomerular Filtration Rate 22 mL/min (>60); Est Glom Filt Rate - Afr Amer 27 mL/min (>60); Ferritin 145 ng/mL (8-252); Globulin 4.4 g/dL (2.2-4.2); Glucose 219 mg/dL (74-106); Iron 57 ug/dL (50-170); Protein, Total 7.8 g/dL (6.4-8.2); Sodium Level 136 mmol/L (136-145)
[2023-02-11 05:07] LABS: Fructosamine 374 umol/L (0-285)
== END | disposition home or self-care (01) ==
LOC: LAB 12:09
PROVIDERS: PCP Family Medicine; Referring Provider Family Medicine; Visit Provider Family Medicine
DX: E11.21 Type 2 diabetes mellitus with diabetic nephropathy (principal); E11.22 Type 2 diabetes mellitus with diabetic chronic kidney disease; N18.32 Chronic kidney disease, stage 3b; D64.9 Anemia, unspecified; I13.10 Hypertensive heart and chronic kidney disease without heart failure, with stage 1 through stage 4 chronic kidney disease, or unspecified chronic kidney disease
CPT/HCPCS: 36415; 80053; 82728; 82985; 83540; 83880; 85025

== ENCOUNTER → 2023-06-01 | Outpatient (CLI) | payer MEDICARE, OTHER, SELFPAY ==
[2023-06-01 15:49] LABS: Anion Gap 11 (5-15); BUN 69 mg/dL (7-18); BUN/Creat Ratio 28.8 RATIO (10-20); Calcium,Total 9.2 mg/dL (8.5-10.1); Chloride 102 mmol/L (98-107); EST Glomerular Filtration Rate 20 mL/min (>60); Est Glom Filt Rate - Afr Amer 25 mL/min (>60); Glucose 314 mg/dL (74-106); Potassium 4.5 mmol/L (3.5-5.1); Sodium Level 135 mmol/L (136-145)
== END | disposition home or self-care (01) ==
LOC: BFHLAB 13:53
PROVIDERS: PCP Family Medicine; Referring Provider Family Medicine; Visit Provider Family Medicine
DX: N18.32 Chronic kidney disease, stage 3b (principal)
CPT/HCPCS: 36415; 80048

== ENCOUNTER 2023-06-04 10:05 | Inpatient (IN) | payer MEDICARE, OTHER, SELFPAY ==
[2023-06-04] VITALS (8 sets, daily range): BP systolic 95–120; BP diastolic 50–57; PULSE 71–80; RESP 16–18; TEMP 36.1–37; O2SAT 96–98; BMI 25.0
--- NOTE | 2023-06-04 10:22 | CT_ITS ---
EXAM: CT HEAD WITHOUT INTRAVENOUS CONTRAST CLINICAL INDICATION: Trauma on anticoagulant with altered mental status TECHNIQUE: Multiple axial images were obtained of the head without intravenous contrast. This CT exam was performed using one or more of the following dose reduction techniques: automated exposure control, adjustment of the mA and/or kV according to patient size, and/or use of iterative reconstruction technique. COMPARISON: No relevant prior studies available. FINDINGS: BRAIN AND EXTRA-AXIAL SPACES: No hemorrhage or mass effect. No acute ischemia. Areas of diminished white matter density noted within both cerebral hemispheres suggestive of chronic microvascular change. Prominence of the cortical sulci and ventricles related to volume loss change. BONES/JOINTS: No suspicious lytic or blastic abnormality. SOFT TISSUES: Left frontal scalp swelling. SINUSES: No acute sinusitis. MASTOID AIR CELLS: Normal. Clear. CT/Brain/Head without Contrast IMPRESSION: 1. No acute intracranial abnormality. 2. Senescent changes. Electronically Signed: John Sanders MD at 11:11 EDT ,
--- NOTE | 2023-06-04 10:22 | EKG12_ITS ---
Test Reason : FALL Blood Pressure : / mmHG Vent. Rate : 076 BPM Atrial Rate : 076 BPM P-R Int : 180 ms QRS Dur : 084 ms QT Int : 400 ms P-R-T Axes : 029 -40 053 degrees QTc Int : 450 ms Normal sinus rhythm Left axis deviation Septal infarct , age undetermined Abnormal ECG Confirmed by DEYA ARMENTA, JANELLE ([id number]), purchasing expeditor CHU VALENTIN ([id number]) on 06/09/2023 12:50:10 PM Referred By: Confirmed By:JATIN FALK MD
--- NOTE | 2023-06-04 10:22 | EX.ED.GENINJ ---
HPI History of Present Illness Chief Complaint: Fall Detail of Chief Complaint: Trauma status post fall, patient on Eliquis Onset/Context/Timing Onset: Today (Fell slightly past midnight) Mechanism/Context: Blunt Injury and Fall Location: Door jam with forehead Current Severity: Gone Maximum Severity: Moderate Worsened by: Nothing Relieved by: Nothing Associated Symptoms Length of loss of consciousness: Unknown certain. Patient is disoriented which is abnormal for her Narrative Narrative: Patient is a 87-year-old woman. She apparently was walking last evening. She fell. She is uncertain why she fell. She hit her head on the door jam. She has an abrasion versus laceration left side of the forehead. There is evidence of ecchymosis left periorbital region and bruising to the lips. She does report head pain/headache. She denies trouble with her hearing. Denies trouble with her speech. She denies neck pain. She denies chest pain or back pain. She denies abdominal pain. She denies pain to her upper or lower extremities. She denies paresthesia, anesthesia or motor weakness to the upper or lower extremity. Daughter states when she attempted to get up she had dizziness. Tetanus Immunization: Unknown Prior similar symptoms: No Recent Illness/Hospitalization: No [facility] Medical History (Updated 06/04/23 @ 13:[address] 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) Hyperlipidemia Hypertension associated with diabetes Hypoxia Ischemic cardiomyopathy Mitral annular calcification Nonrheumatic aortic (valve) stenosis Nonrheumatic mitral (valve) insufficiency Normocytic anemia Paroxysmal atrial fibrillation Renal artery stenosis Home Medications aspirin 81 mg chewable tablet 81 mg PO DAILY@0800 BLOOD THINNER 04/21/17 [History Last Taken 06/18/22] amlodipine 10 mg tablet 10 mg PO QHS BP 04/28/17 [History Last Taken 06/18/22] apixaban 2.5 mg tablet (Eliquis) 2.5 mg PO BID BLOOD THINNER 09/07/19 [History Last Taken 06/18/22] losartan 50 mg tablet 50 mg PO BID BP 06/19/22 [History Last Taken 06/18/22] metoprolol succinate 25 mg tablet,extended release 24 hr 25 mg PO QHS hr 06/19/22 [History Last Taken 06/18/22] metoprolol succinate 100 mg tablet,extended release 24 hr 100 mg PO DAILY 07/30/22 [History Last Taken Unknown] ferrous sulfate 325 mg (65 mg iron) tablet 325 mg PO BID #60 tabs 10/19/22 [Rx Last Taken Unknown] potassium chloride 20 mEq tablet,extended release(part/cryst) (Klor-Con M) 20 meq PO BIDCM #60 tabs 10/19/22 [Rx Last Taken Unknown] empagliflozin 10 mg tablet (Jardiance) 10 mg PO DAILY 02/09/23 [History Last Taken Unknown] furosemide 20 mg tablet (Lasix) 20 mg PO BID 02/09/23 [History Last Taken Unknown] glimepiride 1 mg tablet 1 mg PO QHS SUGAR 02/09/23 [History Last Taken Unknown] pravastatin 20 mg tablet 20 mg PO DAILY 02/09/23 [History Last Taken Unknown] clopidogrel 75 mg tablet 75 mg PO DAILY 06/04/23 [History Last Taken Unknown] furosemide 40 mg tablet 40 mg PO BID 06/04/23 [History Last Taken Unknown] glipizide 5 mg tablet 5 mg PO DAILY 06/04/23 [History Last Taken Unknown] Allergy/AdvReac Type Severity Reaction Status Date / Time No Known Allergies Allergy Verified 02/09/23 11:16 Family History Sister Asthma Breast cancer Hypertension Hyperlipidemia Melanoma Father , From old age per patient. Denies specific medical problems. No problems noted. Mother , From old age per patient. Denies specific medical problems. No problems noted. Surgical History (Updated 06/04/23 @ 13:[address] Breanna Guerra MD) History of appendectomy History of coronary angioplasty (09/18/21) History of left heart catheterization (04/2017) History of percutaneous transluminal coronary angioplasty (~09/18/21) S/P TAVR (transcatheter aortic valve replacement) Social History (Updated 06/04/23 @ 10:[address] Wale Bailey MD) household members: none Smoking Status: Never smoker alcohol intake: never substance use type: does not use caffeine: Yes Type: coffee Number of servings: 1 ROS ROS ED Review of Systems ROS Unobtainable: due to mental status Cardiovascular Cardiovascular: Denies chest pain Respiratory/Chest Respiratory/Chest: Denies dyspnea Gastrointestinal Gastrointestinal: Denies abdominal pain Genitourinary Genitourinary ED: Reports other Details: Not urinated since yesterday and has no symptoms. Musculoskeletal Musculoskeletal: Denies back pain Neurologic Neurologic: Reports headache(s) and weakness Hematologic/Lymphatic Hematologic/Lymphatic: Reports easy bruising EXAM Physical Exam Const Vital Signs: 06/04/23 10:09 06/04/23 10:12 06/04/23 12:08 Temperature 97 F L Temperature Source Temporal Pulse Rate 71 Respiratory Rate 16 Respiratory Effort Normal Respiratory Depth Normal Respiratory Pattern Normal Blood Pressure 97/54 L 103/51 L Blood Pressure Mean 68 68 Pulse Ox 97 97 Oxygen Delivery Method Room Air Room Air 06/04/23 12:30 06/04/23 12:45 Temperature Temperature Source Pulse Rate Respiratory Rate Respiratory Effort Respiratory Depth Respiratory Pattern Blood Pressure 95/52 L 112/57 L Blood Pressure Mean 66 75 Pulse Ox Oxygen Delivery Method Blood pressure has oscillated. Because of history of heart failure she was only given a 500 cc bolus. Pressure is improved to 112/57. Blood cultures and lactate were obtained prior to administration of antibiotics. Presume the UTI is the cause of her altered mental status since her is no abnormality noted on the CT of the head. Positive well nourished and well developed General Appearance ED: well developed and NAD HEENT HEENT Narrative: Patient has dried blood loss of the forehead. There is no palpable oppression. There is no clinical signs of basilar skull fracture. There is no septal deviation hematoma. Patient does have left periorbital ecchymosis and bruising of her upper and lower lip on the left side. There is also bruising noted chin. Eyes PERRL and EOMs intact bilaterally General Eye ED: Yes other Other Details: No nystagmus. There is no subconjunctival hemorrhage. Neck full ROM Neck Narrative: There is [place] no pain to palpation. Patient able to flex extend rotate to the right and left without grimacing or complaining of. She also denied pain when asked. General: Negative for tenderness Chest Wall inspection of chest normal and palpation of chest normal Resp normal respiratory effort and clear to auscultation bilaterally Cardio no murmurs Rate: regular rate Rhythm: abnormal rhythm irregularly irregular GI normal to inspection, nondistended, normoactive bowel sounds, non-tender, non-distended and no masses Palpation: soft Back/Spine normal to inspection and no thoracic nor lumbar tenderness Extremity normal to inspection and full ROM General Extremety ED: Negative for deformity or edema General Extremity: Negative for deformity or edema Neuro No oriented x3, CN's II-XII intact bilaterally, moves all extremities, no focal motor deficits and no sensory deficits noted Neuro Narrative: No dysmetria. There is no nystagmus. Patient has equivocal Babinski on the left. There is no clonus at the ankles Crsytal Coma Scale: document GCS findings Spontaneous Obeys Commands Confused 14 Sensorium / Orientation: Negative for alert Deep Tendon Reflexes: Rt Triceps (C7): 1+, Lt Triceps (C7): 1+, Rt Biceps (C5, C6): 1+, Lt Biceps (C5, C6): 1+, Rt Brachioradialis (C6): 1+, Lt Brachioradialis (C6): 1+, Rt Patellar (L4): 1+, Lt Patellar (L4): 1+, Rt Ankle (S1): 1+ and Lt Ankle (S1): 1+ Deep Tendon Reflexes Back: Rt Patellar (L4): 1+, Lt Patellar (L4): 1+, Rt Ankle (S1): 1+ and Lt Ankle (S1): 1+ Plantar Reflex: Downgoing: right and Equivocal: left Psych mental status grossly normal; Negative for thought process normal Skin Skin Narrative: Facial bruising as previously described Trauma: abrasion MDM MDM MDM Narrative Medical decision making narrative: With history of head trauma, on anticoagulant with altered mental status will obtain CT of the head to rule out intracranial bleed. Patient is hypotensive. Will administer fluid bolus. We will administer to 50 since she has history of congestive heart failure without preserved ejection fraction. Apparently she has had urinary symptoms will obtain straight cath urine to assess for infection which may explain her altered mental status if the CT of the head reveals no obvious abnormality. History & Record Review Discussion w/independent historian: Family Additional record(s) reviewed:: Prior outpatient record (She is on anticoagulant for atrial fibrillation.), Prior ED visit and Prior labs Lab Data Attestation: I reviewed the patient's lab results. Lab results narrative: BC is remarkable for slight shift. White count is normal. PT/INR is upper end of normal. Electrolyte panel is markable BUN/creatinine of 69 2.5 which is baseline. GFR is 10. Urine is consistent with infection. Urine culture was sent. Labs: Laboratory Results - last 24 hr 06/04/23 06/04/23 10:40 11:00 WBC 9.4 RBC 4.61 Hgb 13.5 Hct 39.8 MCV 86.3 MCH 29.3 MCHC 33.9 RDW Std Deviation 43.3 RDW Coeff of Jesi 14.2 Plt Count 195 MPV 10.3 Immature Gran % (Auto) 0.400 Neut % (Auto) 75.7 H Lymph % (Auto) 13.8 L [place] % (Auto) 9.2 Eos % (Auto) 0.6 Baso % (Auto) 0.3 Absolute Neuts (auto) 7.1 Absolute Lymphs (auto) 1.30 Nucleated RBC % 0 PT 16.6 H INR 1.3 Sodium 136 Potassium 4.2 Chloride 106 Carbon Dioxide 21.0 Anion Gap 9 BUN 69 H Creatinine 2.50 H Est GFR (MDRD) Af Amer 23 L Est GFR (MDRD) Non-Af 19 L BUN/Creatinine Ratio 27.6 H Glucose 169 H Calcium 8.8 Urine Color Yellow Urine Clarity Cloudy Urine pH 6.0 Ur Specific [place] 1.010 Urine Protein 15 H Urine Glucose (UA) 250 H Urine Ketones Negative Urine Occult Blood 250 H Urine Nitrite Positive H Urine Bilirubin Negative Urine Urobilinogen Normal Ur Leukocyte Esterase 500 H Urine RBC 0-5 SEEN Urine WBC 10-25 SEEN Ur Squamous Epith Cells 0-5 SEEN Urine Bacteria 3+ Urine Mucus 0 SEEN Radiography Diagnostic Testing: Clinical Impression(s) from Imaging Studies Brain CT 06/04/23 10:22 IMPRESSION: 1. No acute intracranial abnormality. 2. Senescent changes. Electronically Signed: John Sanders MD at 11:11 EDT , EKG Initial EKG: Attestation: I personally reviewed and interpreted this EKG as follows: Interpretation: Sinus Rhythm (Rate of 76 with left axis. There is decreased anterior force. T waves are slightly peaked. We will need to assess potassium. NV interval 180 ms. Cures duration 84 ms. QT duration 400 ms.) Treatment and Re-Evaluation Narrative: CIWA fluid bolus for her low blood pressure. Will start on Rocephin. Will obtain blood cultures prior to administration of antibiotics. Urine culture was also obtained. I expect this is the cause of her hypotension and altered mental status since the CT of the head is unremarkable for intracranial bleed due to blunt trauma. Critical Care Time Critical Care Time: Yes Critical care time (excluding procedures): 30-74 minutes (32), Including time spent: (3, sickle, documentation, review of prior records, independent review and interpretation of laboratory results and images), Discussing w/Patient &/or Family/Assembly Machine Feeder (Discussion with son who is went to his mother's house after fall, [id number],), Discussing w/Consultants, Arranging Admission or Transfer and - (Fluids for hypotension antibiotics for infection) Discharge Plan Dx/Rx/DC Orders Clinical Impression: Complicated urinary tract infection, Hyperlipidemia, History of percutaneous transluminal coronary angioplasty, Anticoagulant long-term use, Renal artery stenosis, Infectious encephalitis, Closed head injury, Kidney disease, chronic, stage IV (GFR 15-29 ml/min), Acute hypotension Disposition Disposition: Acute Care Hospital [facility]
[2023-06-04 10:50] LABS: Absolute Neutrophil Count 7.1 X10^3/uL (2.0-7.7); Basophil# 0.03 X10^3/uL; Basophil% 0.3 % (0-1); Eosinophil# 0.06 X10^3/uL; Eosinophils% 0.6 % (0-5); Hematocrit 39.8 % (37-47); Hemoglobin 13.5 g/dL (12.0-15.0); Lymphocyte % 13.8 % (19-41); Mean Corp Hgb Conc 33.9 g/dL (32-36); Mean Corpuscular Hgb 29.3 pg (27.0-32.0); Mean Corpuscular Volume 86.3 fL (81-99); Mean Platelet Vol. 10.3 fl (6.2-12.0); Monocyte# 0.87 X10^3/uL; Monocyte% 9.2 % (0-10); NRBC Flagged by Analyzer 0 % (0-5); Neutrophil # 7.13 X10^3/uL (2.7-7.7); Neutrophil % 75.7 % (47-70); Platelet Count 195 K/mm3 (150-450); RBC Distribution Width CV 14.2 % (11.6-14.6); RBC Distribution Width SD 43.3 fl (35.1-43.9); Red Blood Count 4.61 M/mm3 (4.2-5.4); White Blood Count 9.4 K/mm3 (4.4-11.0)
[2023-06-04] MEDS: Diphth,Pertuss(Acell),Tet Vac 0.5 ML Vial IM (11:02)
[2023-06-04 11:03] LABS: International Normalized Ratio 1.3; Prothrombin Time (Protime)PT. 16.6 SECONDS (11.7-14.9)
[2023-06-04 11:05] LABS: Anion Gap 9 (5-15); BUN 69 mg/dL (7-18); BUN/Creat Ratio 27.6 RATIO (10-20); Calcium,Total 8.8 mg/dL (8.5-10.1); Chloride 106 mmol/L (98-107); EST Glomerular Filtration Rate 19 mL/min (>60); Est Glom Filt Rate - Afr Amer 23 mL/min (>60); Glucose 169 mg/dL (74-106); Potassium 4.2 mmol/L (3.5-5.1); Sodium Level 136 mmol/L (136-145)
[2023-06-04 11:12] LABS: Mucous, Urine 0 SEEN /hpf (<or=2+)
[2023-06-04 11:14] LABS: Color, Urine Yellow (Yellow); Glucose, Dipstick 250 mg/dl (Normal); Ketone-Dipstick Negative (Negative); Leukocyte Esterase-Dipstick 500 /ul (Negative); Nitrite-Dipstick Positive (Negative); Occult Blood-Urine 250 /ul (Negative); Protein-Dipstick 15 mg/dl (Negative); Urine Bilirubin Dipstick Negative (Negative); Urine Clarity Cloudy (Clear); Urine Urobilinogen Normal (Normal)
[2023-06-04 11:19] LABS: Bacteria 3+ /hpf (None Seen); Red Blood Cells-Urine 0-5 SEEN /hpf (0-5); Squamous Epithelial Cells - UA 0-5 SEEN /hpf (5-10); White Blood Cells 10-25 SEEN /hpf (0-5)
[2023-06-04] MEDS: 0.9% Normal Saline (500mL Bag) 500 ML 1000 ML IV (13:03)
--- NOTE | 2023-06-04 13:20 | PCM.HP.STD ---
HPI - General General Date of Admission: 06/04/23 Date of Service: 06/04/23 Chief Complaint: Dizziness, urinary symptoms, confusion, fall. HPI Narrative The patient is an 87 y/o F w/ PMHx: Diabetes mellitus type II, CKD stage III unclear subtype-->appears to be now CKD stage IV, HTN, HLD, Chronic Combined HF/Ischemic cardiomyopathy, Valvular Heart Disease s/p TAVR, PAF, Hx renal artery stenosis, CAD s/p PCI who presents to the [facility] ED on 06/04/23 with history of unfortunately mechanical fall slightly past midnight hitting her head on the door jam with unclear specific events during the fall with upon ED arrival evidence of ecchymoses to the left periorbital region and bruising to the lips with headache associated although family does report dizziness recently as well primarily with positional changes. In addition family reports recent urinary symptoms including increased urinary frequency. Family present and patient do report that her passed 1 month prior. She does live in a 1 level home except her laundry system is in the basement of note. Work-up in the ED included T97, heart rate 71, BP initially 97/54 with most recent repeat 112/57, respiratory rate 16, 97% on room air, CBC with WBC 9.4, hemoglobin 13.5, platelet 195 without marked shift, coags with PT 16.6, INR 1.3, BMP with BUN/creatinine 69/2.50, glucose 169, urinalysis noted to be cloudy, specific remedy 1.010, protein 15, glucose 250, ketone negative, occult blood 250, positive nitrite, leukocyte Estrace 500 with urine WBCs 10-25 with 3+ urine bacteria, urine culture pending per ED, CT brain with no acute intracranial findings with senescent changes, EKG with sinus rhythm with nonspecific changes with no acute evidence of ischemia. In the ED patient ministered tetanus update as well as IV Rocephin 1 g IV x1 and 500 cc normal saline bolus. [facility] Medical History Aortic sclerosis Atherosclerosis of coronary artery of [place] heart without angina pectoris Bilateral carotid artery stenosis Chronic combined systolic and diastolic CHF (congestive heart failure) Chronic kidney disease (CKD) Chronic kidney disease, stage 3 Chronic venous insufficiency Diabetes mellitus Diastolic CHF History of chronic CHF History of non-ST elevation myocardial infarction (NSTEMI) (09/17/21) History of renal insufficiency History of transcatheter aortic valve replacement (TAVR) (05/18/17) Hyperlipidemia Hypertension associated with diabetes Hypoxia Ischemic cardiomyopathy Mitral annular calcification Nonrheumatic aortic (valve) stenosis Nonrheumatic mitral (valve) insufficiency Normocytic anemia Paroxysmal atrial fibrillation Renal artery stenosis Home Medications aspirin 81 mg chewable tablet 81 mg PO DAILY@0800 BLOOD THINNER 04/21/17 [History Last Taken 06/18/22] amlodipine 10 mg tablet 10 mg PO QHS BP 04/28/17 [History Last Taken 06/18/22] apixaban 2.5 mg tablet (Eliquis) 2.5 mg PO BID BLOOD THINNER 09/07/19 [History Last Taken 06/18/22] losartan 50 mg tablet 50 mg PO BID BP 06/19/22 [History Last Taken 06/18/22] metoprolol succinate 25 mg tablet,extended release 24 hr 25 mg PO QHS hr 06/19/22 [History Last Taken 06/18/22] metoprolol succinate 100 mg tablet,extended release 24 hr 100 mg PO DAILY 07/30/22 [History Last Taken Unknown] ferrous sulfate 325 mg (65 mg iron) tablet 325 mg PO BID #60 tabs 10/19/22 [Rx Last Taken Unknown] potassium chloride 20 mEq tablet,extended release(part/cryst) (Klor-Con M) 20 meq PO BIDCM #60 tabs 10/19/22 [Rx Last Taken Unknown] empagliflozin 10 mg tablet (Jardiance) 10 mg PO DAILY 02/09/23 [History Last Taken Unknown] furosemide 20 mg tablet (Lasix) 20 mg PO BID 02/09/23 [History Last Taken Unknown] glimepiride 1 mg tablet 1 mg PO QHS SUGAR 02/09/23 [History Last Taken Unknown] pravastatin 20 mg tablet 20 mg PO DAILY 02/09/23 [History Last Taken Unknown] clopidogrel 75 mg tablet 75 mg PO DAILY 06/04/23 [History Last Taken Unknown] furosemide 40 mg tablet 40 mg PO BID 06/04/23 [History Last Taken Unknown] glipizide 5 mg tablet 5 mg PO DAILY 06/04/23 [History Last Taken Unknown] Allergy/AdvReac Type Severity Reaction Status Date / Time No Known Allergies Allergy Verified 02/09/23 11:16 Family History Sister Asthma Breast cancer Hypertension Hyperlipidemia Melanoma Father , From old age per patient. Denies specific medical problems. No problems noted. Mother , From old age per patient. Denies specific medical problems. No problems noted. Surgical History History of appendectomy History of coronary angioplasty (09/18/21) History of left heart catheterization (04/2017) History of percutaneous transluminal coronary angioplasty (~09/18/21) S/P TAVR (transcatheter aortic valve replacement) Social History household members: none Smoking Status: Never smoker alcohol intake: never substance use type: does not use caffeine: Yes Type: coffee Number of servings: 1 ROS ROS Narrative Admission Review of Systems: CONSTITUTIONAL: No weight loss, fever, chills, + weakness or fatigue. HEENT: + LH/Dizziness. Eyes: No visual loss, blurred vision, double vision or yellow sclerae. Ears, Nose, Throat: No hearing loss, sneezing, congestion, runny nose or sore throat. SKIN: No rash or itching, lesions, wounds, + facial ecchymoses status post fall. CARDIOVASCULAR: + LH/Dizziness. No chest pain, chest pressure or chest discomfort, palpitations, edema, orthopnea, syncopal events. RESPIRATORY: No shortness of breath, cough or sputum, wheezing, hemoptysis. GASTROINTESTINAL: + anorexia, No nausea, vomiting or diarrhea, abdominal pain, melena, BRBPR. GENITOURINARY: No dysuria, frequency, urgency or retention. NEUROLOGICAL: + LH/dizziness. No headache, paralysis, ataxia, numbness or tingling in the extremities, focal weakness, change in bowel or bladder control, seizure. MUSCULOSKELETAL: + muscle, back pain, joint pain or stiffness. HEMATOLOGIC: + anemia, recent bleeding or bruising. LYMPHATICS: No enlarged nodes. No history of splenectomy. PSYCHIATRIC: No history of depression or anxiety. ENDOCRINOLOGIC: No reports of sweating, cold or heat intolerance. No polyuria or polydipsia. ALLERGIES: No history of asthma, hives, eczema or rhinitis. Vital Signs Vital Signs Vital Signs: 06/04/23 10:09 06/04/23 10:12 06/04/23 12:08 Temperature 97 F L Temperature Source Temporal Pulse Rate 71 Respiratory Rate 16 Respiratory Effort Normal Respiratory Depth Normal Respiratory Pattern Normal Blood Pressure 97/54 L 103/51 L Blood Pressure Mean 68 68 Pulse Ox 97 97 Oxygen Delivery Method Room Air Room Air 06/04/23 12:30 06/04/23 12:45 Temperature Temperature Source Pulse Rate Respiratory Rate Respiratory Effort Respiratory Depth Respiratory Pattern Blood Pressure 95/52 L 112/57 L Blood Pressure Mean 66 75 Pulse Ox Oxygen Delivery Method Physical Exam Narrative Physical Examination: General: Awake, alert, oriented to self, place and recent events but she has a very flat affect and is fatigued, remains cooperative, seated upright in ED bed, no acute distress, visible significant facial swelling and ecchymotic change especially of the left upper forehead status post falling into the door jam. Skin: Normal color, normal turgor, no icterus, no cyanosis except for bilateral lower extremity venous stasis skin changes as well as very staged ecchymoses including recent ecchymotic change to the face prominently left lateral forehead with a small abrasion with blood dried as well as expected dependent region below the eye. HEENT: Traumatic fall with skin changes as noted above/NC, EOMI, PERRLA, mildly dry MM, no carotid bruits or JVD noted. Lungs: Mild diminished, greater bases, proper effort, no rales, ronchi or wheezing. Heart: Regular rate and rhythm; no gallop, rub audible, + SM. Abdomen: Soft, NTTP, ND, hyperactive BS, no HSM. Extremities: No cyanosis, no clubbing, mild ankle to mid murillo edema. Neurological: Patient awake, alert, oriented as noted, cognitive function improving since presentation and patient is oriented currently but family reports that she has not been herself and has been confused above baseline; pupils equally reactive to light and accommodation, cranial nerves grossly normal, moving all 4 extremities, no focal deficits, strength moderately to severely globally decreased secondary to acute presentation. Psychiatric: Affect appears flat, fatigued, given significantly flat affect and recent of her spouse did discuss depression and anxiety and she denies depression although she does report poor appetite. Results Lab / Micro Data 06/04/23 10:40 06/04/23 10:40 Labs: Laboratory Results - last 24 hr 06/04/23 10:40: WBC 9.4, RBC 4.61, Hgb 13.5, Hct 39.8, MCV 86.3, MCH 29.3, MCHC 33.9, RDW Std Deviation 43.3, RDW Coeff of Jesi 14.2, Plt Count 195, MPV 10.3, Immature Gran % (Auto) 0.400, Neut % (Auto) 75.7 H, Lymph % (Auto) 13.8 L, [place] % (Auto) 9.2, Eos % (Auto) 0.6, Baso % (Auto) 0.3, Absolute Neuts (auto) 7.1, Absolute Lymphs (auto) 1.30, Nucleated RBC % 0, PT 16.6 H, INR 1.3, Sodium 136, Potassium 4.2, Chloride 106, Carbon Dioxide 21.0, Anion Gap 9, BUN 69 H, Creatinine 2.50 H, Est GFR (MDRD) Af Amer 23 L, Est GFR (MDRD) Non-Af 19 L, BUN/Creatinine Ratio 27.6 H, Glucose 169 H, Calcium 8.8 06/04/23 11:00: Urine Color Yellow, Urine Clarity Cloudy, Urine pH 6.0, Ur Specific [place] 1.010, Urine Protein 15 H, Urine Glucose (UA) 250 H, Urine Ketones Negative, Urine Occult Blood 250 H, Urine Nitrite Positive H, Urine Bilirubin Negative, Urine Urobilinogen Normal, Ur Leukocyte Esterase 500 H, Urine RBC 0-5 SEEN, Urine WBC 10-25 SEEN, Ur Squamous Epith Cells 0-5 SEEN, Urine Bacteria 3+, Urine Mucus 0 SEEN Radiology Impression Brain CT 06/04/23 10:22 IMPRESSION: 1. No acute intracranial abnormality. 2. Senescent changes. Electronically Signed: John Sanders MD at 11:11 EDT , Assessment & Plan Assessment/Plan (1) UTI (urinary tract infection): PLAN: Plan The patient is an 87 y/o F w/ PMHx: Diabetes mellitus type II, CKD stage III unclear subtype-->appears to be now CKD stage IV, HTN, HLD, Chronic Combined HF/Ischemic cardiomyopathy, Valvular Heart Disease s/p TAVR, PAF, Hx renal artery stenosis, CAD s/p PCI who presents to the [facility] ED on 06/04/23 with history of unfortunately mechanical fall slightly past midnight hitting her head on the door jam with unclear specific events during the fall with upon ED arrival evidence of ecchymoses to the left periorbital region and bruising to the lips with headache associated although family does report dizziness recently as well primarily with positional changes. #1. Mechanical Fall, Weakness, Dizziness, Acute Encephalopathy with associated Head Trauma without acute intracranial injury suspected secondary to Mild Hypotension secondary to Acute Urinary Tract Infection: Will admit to [facility] upon ED evaluation remarkable, pending UCx, judiciously hydrate with IVFs, monitor I/Os, continue IV Rocephin w/ transition as able pending sensitivities and speciation. CT head without acute findings. Will obtain AM orthostatics. PT/OT/CM consulted for discharge planning. #2. Chronic Kidney Disease Stage III Chart Listed; however, GFR trending per records consistent with CKD stage IV (primarily 15-29): Admission BUN/Cr 69/2.50, baseline renal function noted previously 1.7 to most recently 2.4, 02/09/2023 creatinine 2.24 and 06/01/2023 creatinine 2.40, of note her GFR has been trending down since the year prior and patient does appear to be CKD stage IV, repeat BMP in AM. #3. Reported Chronic Combined HF (HFpEF, HFrEF)/Ischemic Cardiomyopathy; however, of note most recent ECHO 09/15/22 with EF 65%, appropriate systolic fx but notable diastolic dysfunction: We will continue patient home Plavix and apixaban regimen, will also continue statin therapy, will temporally hold metoprolol/losartan/Lasix, may certainly consider resumption tomorrow but if continued low blood pressures low threshold to hold again. #4. Hypertension: As noted upon presentation patient with low BP, improved with very judicious IV fluid bolus given history, will add back once appropriate, orthostatics planned in a.m. as noted. #5. Hyperlipidemia: We will continue patient on statin therapy #6. Chronic anemia/iron deficiency anemia: Admission hemoglobin 13.5, MCV 86.3, baseline hemoglobin 02/10/2020 313.3 however prior to this baseline was primarily 8-9, will continue to trend CBC, continue iron supplementation. #7. CAD, PAD: Status post PCI, will continue aspirin, Plavix, apixaban however given timeline recommend patient discussion for may be consideration of transition to just Plavix and apixaban especially given this fall, holding hypertensive regimen as noted above, resume once appropriate, continue statin therapy. #8. PAF: Given hypotensive upon presentation temporally holding metoprolol, continue low-dose apixaban regimen cautiously. #9. Diabetes mellitus type II: Hold oral home regimen, continue home insulin regimen, ADA diet, accu checks w/ ISS. #10. Valvular heart disease: 09/15/2022 echocardiogram with normal LV size, moderate concentric LVH, LV systolic function normal, EF 65%, mildly enlarged LA, PASP 84 mmHg, severe pulmonary hypertension, stage II diastolic dysfunction, global longitudinal strain normal, bioprosthetic aortic valve functioning normally. #11. DVT prophylaxis: We will continue patient home low-dose apixaban regimen. #12. CODE status: Patient OLI is her 3 sons and living will is currently in place. Discussed CODE status at length including difference between FULL code, DNR-CCA and DNR-CC status. Following discussions about the differences in these status, requested Full Code status. Advanced Care Planning Face to Face Time: 16 minutes. Charges/Coding Visit Charges Inpatient E&M: 71232 Init Hosp L3 Procedures Hospitalists Procedures: 24370 Advncd Care Plan 30 Min
[2023-06-04] MEDS: Ceftriaxone 1 GM/50 ML BAG IV (13:40)
[2023-06-04 14:08] LABS: Magnesium 3.1 mg/dL (1.6-2.6)
--- NOTE | 2023-06-04 15:03 | CASEMGMT ---
SW spoke with patient's son and daughter in law per their request. They were interested in patient getting a medical alert button through the hospital. Patient's daughter was trying to get this lined up for patient, but no one has returned her phone calls. JANEL told them SW can check on this. They would like for patient to go home at discharge. Patient's within the last month and a half and family has been getting caught up on patient's medical issues. Family would like for patient to return home at discharge. Elisabeth MCMAHAN
[2023-06-04] MEDS: Menthol/Lanolin/Calamine/Znox 113 GM Tube 1 APPLIC TOPICAL ×3 (16:00→21:15)
[2023-06-04] MEDS: 0.9% Normal Saline (1000mL) 1,000 ML 60 ML IV (16:00)
[2023-06-04 16:37] LABS: Lactic Acid 0.9 mmol/L (0.4-1.9)
[2023-06-04 16:53] LABS: Bedside Glucose 114 mg/dL (74-106)
[2023-06-04] MEDS: Potassium Chloride Oral Tablet 20 MEQ PO (18:01)
[2023-06-04] MEDS: Ferrous Sulfate 325 MG Tablet PO (18:01)
[2023-06-04] MEDS: Insulin Lispro 100 UNIT/ML INSULN.PEN SC (21:13)
[2023-06-04 21:33] LABS: Bedside Glucose 333 mg/dL (74-106)
[2023-06-05] VITALS (7 sets, daily range): BP systolic 75–149; BP diastolic 53–71; PULSE 81–140; RESP 16; TEMP 36.2–37; O2SAT 95–100; BMI 24.6
--- NOTE | 2023-06-05 01:45 | NURSING ---
bladder scan showed 785cc. pt states she needs to urinate but cannot. pt st cath'd for 800cc. urine was initially yellow w/strong odor. near the end of st cath urine was purulent with small clots.
[2023-06-05 05:50] LABS: Absolute Lymphocyte Count 1.78 X10^3/uL (0.83-4.51); Absolute Neutrophil Count 6.3 X10^3/uL (2.0-7.7); Basophil# 0.04 X10^3/uL; Basophil% 0.4 % (0-1); Eosinophil# 0.11 X10^3/uL; Eosinophils% 1.2 % (0-5); Hemoglobin 12.1 g/dL (12.0-15.0); Lymphocyte # 1.78 X10^3/ul (0.83-4.51); Lymphocyte % 19.3 % (19-41); Mean Corp Hgb Conc 32.7 g/dL (32-36); Mean Corpuscular Hgb 28.9 pg (27.0-32.0); Mean Corpuscular Volume 88.3 fL (81-99); Mean Platelet Vol. 9.8 fl (6.2-12.0); Monocyte# 0.98 X10^3/uL; Monocyte% 10.6 % (0-10); NRBC Flagged by Analyzer 0 % (0-5); Neutrophil # 6.28 X10^3/uL (2.7-7.7); Neutrophil % 68.1 % (47-70); Platelet Count 166 K/mm3 (150-450); RBC Distribution Width CV 14.1 % (11.6-14.6); RBC Distribution Width SD 44.4 fl (35.1-43.9); Red Blood Count 4.19 M/mm3 (4.2-5.4); White Blood Count 9.2 K/mm3 (4.4-11.0)
[2023-06-05 06:21] LABS: ALB/GLOB Ratio 0.7 RATIO (0.9-2.4); AST(SGOT) 11 U/L (15-37); Alanine Aminotransfer ALT/SGPT 13 U/L (13-56); Albumin, Serum 2.6 g/dL (3.2-5.0); Alkaline Phosphatase 87 U/L (45-117); Anion Gap 6 (5-15); BUN 65 mg/dL (7-18); BUN/Creat Ratio 31.7 RATIO (10-20); Calcium,Total 8.5 mg/dL (8.5-10.1); Chloride 111 mmol/L (98-107); Creatinine, Serum 2.05 mg/dL (0.55-1.02); EST Glomerular Filtration Rate 24 mL/min (>60); Est Glom Filt Rate - Afr Amer 29 mL/min (>60); Estimated Creatinine Clearance 14.31 ml/min; Globulin 3.5 g/dL (2.2-4.2); Glucose 95 mg/dL (74-106); Protein, Total 6.1 g/dL (6.4-8.2); Sodium Level 137 mmol/L (136-145)
[2023-06-05] MEDS: Ferrous Sulfate 325 MG Tablet PO ×2 (08:05→17:01)
[2023-06-05] MEDS: Aspirin 81 MG TAB.CHEW PO (08:05)
[2023-06-05] MEDS: Potassium Chloride Oral Tablet 20 MEQ PO ×2 (08:05→17:00)
--- NOTE | 2023-06-05 08:45 | NURSING ---
Orthostatic BPs positive. lying 120/66, standing 76/56 with dizziness, weakness, and near syncope.
--- NOTE | 2023-06-05 09:36 | CASEMGMT ---
JANEL called Phyllis at [facility] and left her a voice mail regarding family's interest in the hospital's medical alert button. Elisabeth Zavala LEAD SOFTWARE QA ENGINEER MARJ
--- NOTE | 2023-06-05 10:03 | CASEMGMT ---
JANEL spoke with Phyllis regarding patient's medical alert button. Phyllis plans on talking with patient's daughter Elida. Elisabeth Zavala LABORER ELECTROPLATING SEO INTERN
[2023-06-05] MEDS: Ceftriaxone 1 GM/50 ML BAG IV (10:05)
--- NOTE | 2023-06-05 10:33 | CASEMGMT ---
Discharge Planning A list of HH providers including quality and resource use data and consistent with the patient's preferred geographic region, medical needs, and insurance network was created in [employer] Guide.? This list was provided to the RN MELINA. Dana Fuentes, Discharge Planning Asst.
[2023-06-05] MEDS: Insulin Lispro 100 UNIT/ML INSULN.PEN SC ×3 (11:09→21:27)
[2023-06-05] MEDS: Menthol/Lanolin/Calamine/Znox 113 GM Tube 1 APPLIC TOPICAL ×3 (11:13→20:12)
[2023-06-05] MEDS: APIXABAN 2.5 MG TABLET (WCH) PO ×2 (11:13→21:25)
[2023-06-05] MEDS: Clopidogrel Bisulfate 75 MG Tablet PO (11:13)
[2023-06-05 11:29] LABS: Bedside Glucose 236 mg/dL (74-106)
--- NOTE | 2023-06-05 13:30 | CASEMGMT ---
BROWN SUMMERS Face to Face with patient for initial transition planning/care coordination assessment. BROWN SUMMERS introduced self and role at [facility]. Patient sitting in chair, alert and oriented, family at bedside. Patient willing to participate in assessment and is able to answer all questions appropriately. Care providers, pharmacy, and demographics verified. Patient wishes to discharge home and would like [facility]. A list of C agency was provided to patient and patient [facility]. Patient states he shas no further needs or concerns at this time. CM to follow for discharge planning needs that may arise. PCP: Loraine Specialists: none Preferred Pharmacy: [facility] Insurance: Agustín MCCRARY Prescription Benefit: yes Living Will/HPOA: yes, son Chris Figueroa LNOK: sons Living Arrangements: Patient lives alone in a single story home with 12 steps and railing to enter the home. Patient states she is independent and able to ambulate stairs. Transportation: daughter in law DME/HHC: Patient has shower chair, raised toilet, cane. No previous HHC. Patient has been to a SNF in the past but not sure which one. BROWN SUMMERS called [facility] and made referral to [facility], awaiting acceptance. Disposition Plan: Patient to discharge home with family support, HHC, and follow-up plans in place. Kacie BARRY, RN, CM
--- NOTE | 2023-06-05 14:36 | PCM.PROGNOTE ---
Subjective Subjective Patient seen and examined. She has no active complaints today. She denies any fever, chills, cough, chest pain, palpitations, dizziness, nausea, vomiting or any other symptoms. She was admitted with a complaint of weakness and mechanical fall. She was found to have UTI. SHe is being managed for debility due to UTI. She has remained hemodynamically stable. Objective Data Objective Data Vital Signs: Vital Signs Temp Pulse Resp BP Pulse Ox O2 Del Method 98.0 F 90 16 113/53 L 100 Room Air 06/05/23 14:00 06/05/23 14:00 06/05/23 14:00 06/05/23 14:00 06/05/23 14:00 06/05/23 14:00 Oxygen Delivery Method Room Air Weight: 130 lb 8 oz Body Mass Index (BMI) 24.6 Intake & Output: Intake and Output for Last 24 Hours 06/03/23 06/04/23 06/05/23 23:59 23:59 23:59 Intake Total 550 / 550 1050 / 1050 Output Total 800 / 800 Balance 550 / 550 250 / 250 Medical Nutrition Assessment Dietitian: Malnutrition Criteria Met Start: 06/05/23 12:37 Freq: Status: Active Protocol: Document 06/05/23 12:37 SLA (Rec: 06/05/23 12:37 SLA Desktop) Nutrition Malnutrition Evidence of Malnutrition Exists Yes Malnutrition (severe): Acute Illness/Injury Evidenced By Suboptimal Energy Intake ( Severe),Weight Loss (Severe) Clinical Problem Acute Disease or Injury Related Malnutrition Etiology related to of spouse 07/09 Signs/Symptoms as evidenced by pt consuming < 50% of est nutritional needs and 6.8% wt loss x 1 mo Status Active Problem Recommendation Dietitian Recommendations/Changes Will change diet to Regular No Added Salt/ Consistent CHO diet d/t signs/symptoms of malnutrition Will order 4 oz glucerna shake tid w/ medpass for increased nutrition if consumed. Lab / Micro Data 06/05/23 05:35 06/05/23 05:35 Labs: Laboratory Results - last 24 hr 06/04/23 14:49: Lactic Acid 0.9 06/04/23 16:35: POC Glucose 114 H 06/04/23 21:10: POC Glucose 333 H 06/05/23 05:35: WBC 9.2, RBC 4.19 L, Hgb 12.1, Hct 37.0, MCV 88.3, MCH 28.9, MCHC 32.7, RDW Std Deviation 44.4 H, RDW Coeff of Jesi 14.1, Plt Count 166, MPV 9.8, Immature Gran % (Auto) 0.400, Neut % (Auto) 68.1, Lymph % (Auto) 19.3, [place] % (Auto) 10.6 H, Eos % (Auto) 1.2, Baso % (Auto) 0.4, Absolute Neuts (auto) 6.3, Absolute Lymphs (auto) 1.78, Nucleated RBC % 0, Sodium 137, Potassium 4.0, Chloride 111 H, Carbon Dioxide 20.0 L, Anion Gap 6, BUN 65 H, Creatinine 2.05 H, Estim Creat Clear Calc 14.31, Est GFR (MDRD) Af Amer 29 L, Est GFR (MDRD) Non-Af 24 L, BUN/Creatinine Ratio 31.7 H, Glucose 95, Calcium 8.5, Total Bilirubin 0.30, AST 11 L, ALT 13, Alkaline Phosphatase 87, Total Protein 6.1 L, Albumin 2.6 L, Globulin 3.5, Albumin/Globulin Ratio 0.7 L 06/05/23 11:07: POC Glucose 236 H Micro: Microbiology 06/04/23 11:00 Urine, Clean Catch Urine Culture - Preliminary GNR lactose treater Physical Exam Const alert, oriented x3 and no apparent distress Constitutional Narrative: frail General Appearance: cooperative HEENT normocephalic, moist oral mucous membranes and oropharynx normal HEENT Narrative: has a resolving left periorbital hematoma Eyes EOMs intact bilaterally Neck no lymphadenopathy, supple and no JVD Lymph Lymphatic: no lymphadenopathy noted and no lymphedema noted Resp normal respiratory effort, normal air movement and clear to auscultation bilaterally Cardio regular rate, regular rhythm, S1 normal heart sound, S2 normal heart sound and no murmurs GI normal to inspection, nondistended, normoactive bowel sounds, soft to palpation, non-tender and non-distended Palpation: no hepatosplenomegaly Extremity normal capillary refill, no clubbing, cyanosis or edema and no calf tenderness General Extremity: no tenderness to palpation of joints or extremities Skin General Skin Exam: no breakdown Neuro CN's II-XII intact bilaterally, no focal motor deficits, no sensory deficits noted and deep tendon reflexes 2+ bilaterally Motor Exam: strength 5/5 throughout and general weakness Psych thought process normal Psych Narrative: frail Appearance: appropriate Assessment & Plan Assessment/Plan (1) UTI (urinary tract infection): (2) Closed head injury: PLAN: Plan #weakness and debility due to mechanical falls PT/OT on board fall precautions CT of the brain showed no acute intracranial pathology being hydrated with IVF. Will continue #UTI: on IV ceftriaxone. Urine culture spending #Hypertension; BP meds held due to low BP. Will monitor #CAD: s/p stents. On aspirin and plavix. On high intensity statin. #Hyperlipidemia: on pravastatin 20mg daily #Type 2 diabetes mellitus: On Lantus. Insulin sliding scale. Accu-Cheks ACHS. #Valvular heart disease s/p bioprosthetic aortic valve replacement: On Eliquis. CKD stage IV: Creatinine is 2.05, down from 2.5 on admission. Baseline creatinine is around 1.67 #HFpEF: on lasix and jardiance. Not in exacerbation DVT prophylaxis: Already on Eliquis CODE STATUS: Full code Charges/Coding Visit Charges Inpatient E&M: 66234 Subs Hosp L2
--- NOTE | 2023-06-05 15:10 | CASEMGMT ---
BROWN SUMMERS received updated from [facility] that they are able to accept the patient with planned start of care for 06/10/23. BROWN SUMMERS updated the patient. BROWN SUMMERS updated discharge plan.
[2023-06-05 16:58] LABS: Bedside Glucose 277 mg/dL (74-106)
[2023-06-05] MEDS: oxyCODONE 5 MG Tablet PO (16:59)
[2023-06-05] MEDS: Glucerna Shake 120 ML LIQUID PO (17:53)
[2023-06-05] MEDS: Acetaminophen 325 MG Tablet 650 MG PO (20:10)
[2023-06-05] MEDS: Pravastatin 20 MG Tablet PO (20:11)
[2023-06-05] MEDS: Miconazole Nitrate 43 GM Bottle 1 APPLIC TOPICAL (21:24)
[2023-06-05 22:29] LABS: Bedside Glucose 291 mg/dL (74-106)
--- NOTE | 2023-06-05 22:47 | NURSING ---
Bladderscanned pt for 859 ml. Pt has not voided any urine yet tonight. attempted several times in the bathroom with no success. Straight cathed for the second time since pt was admitted. Obtained a total of 950ml. pt tolerated well.
[2023-06-06] VITALS (8 sets, daily range): BP systolic 116–142; BP diastolic 56–68; PULSE 84–97; RESP 16–18; TEMP 36.7–36.8; O2SAT 95–100
[2023-06-06] MEDS: Acetaminophen 325 MG Tablet 650 MG PO (05:56)
[2023-06-06] MEDS: Miconazole Nitrate 43 GM Bottle 1 APPLIC TOPICAL ×2 (05:56→21:47)
[2023-06-06] MEDS: Insulin Lispro 100 UNIT/ML INSULN.PEN SC ×4 (06:04→21:49)
--- NOTE | 2023-06-06 06:19 | NURSING ---
Bladder scanned for inability to void. scanned for 492 ml. 16 f young placed at this time pt tolerated well. drained 475 ml.
[2023-06-06 06:50] LABS: Absolute Lymphocyte Count 1.52 X10^3/uL (0.83-4.51); Absolute Neutrophil Count 4.6 X10^3/uL (2.0-7.7); Basophil# 0.05 X10^3/uL; Basophil% 0.7 % (0-1); Eosinophils% 2.8 % (0-5); Hematocrit 35.6 % (37-47); Hemoglobin 11.9 g/dL (12.0-15.0); Lymphocyte # 1.52 X10^3/ul (0.83-4.51); Lymphocyte % 21.1 % (19-41); Mean Corp Hgb Conc 33.4 g/dL (32-36); Mean Corpuscular Hgb 29.4 pg (27.0-32.0); Mean Corpuscular Volume 87.9 fL (81-99); Mean Platelet Vol. 9.8 fl (6.2-12.0); Monocyte# 0.84 X10^3/uL; Monocyte% 11.7 % (0-10); NRBC Flagged by Analyzer 0 % (0-5); Neutrophil # 4.55 X10^3/uL (2.7-7.7); Neutrophil % 63.3 % (47-70); Platelet Count 147 K/mm3 (150-450); RBC Distribution Width CV 14.4 % (11.6-14.6); RBC Distribution Width SD 45.7 fl (35.1-43.9); Red Blood Count 4.05 M/mm3 (4.2-5.4); White Blood Count 7.2 K/mm3 (4.4-11.0)
[2023-06-06 06:54] LABS: Bedside Glucose 190 mg/dL (74-106)
[2023-06-06 07:19] LABS: Anion Gap 7 (5-15); BUN 53 mg/dL (7-18); BUN/Creat Ratio 28.3 RATIO (10-20); Calcium,Total 8.6 mg/dL (8.5-10.1); Chloride 111 mmol/L (98-107); Creatinine, Serum 1.87 mg/dL (0.55-1.02); EST Glomerular Filtration Rate 27 mL/min (>60); Est Glom Filt Rate - Afr Amer 33 mL/min (>60); Estimated Creatinine Clearance 15.69 ml/min; Glucose 140 mg/dL (74-106); Potassium 4.1 mmol/L (3.5-5.1); Sodium Level 140 mmol/L (136-145)
[2023-06-06] MEDS: Aspirin 81 MG TAB.CHEW PO (09:07)
[2023-06-06] MEDS: APIXABAN 2.5 MG TABLET (WCH) PO ×2 (09:08→21:48)
[2023-06-06] MEDS: Clopidogrel Bisulfate 75 MG Tablet PO (09:08)
[2023-06-06] MEDS: Potassium Chloride Oral Tablet 20 MEQ PO ×2 (09:08→16:04)
[2023-06-06] MEDS: Menthol/Lanolin/Calamine/Znox 113 GM Tube 1 APPLIC TOPICAL ×3 (09:08→21:47)
[2023-06-06] MEDS: Glucerna Shake 120 ML LIQUID PO ×3 (09:08→16:04)
[2023-06-06] MEDS: Ferrous Sulfate 325 MG Tablet PO ×2 (09:08→16:04)
[2023-06-06] MEDS: Ceftriaxone 1 GM/50 ML BAG IV (10:23)
--- NOTE | 2023-06-06 10:43 | PN_ITS ---
Objective Data Objective Data Vital Signs: Vital Signs Temp Pulse Resp BP Pulse Ox O2 Del Method 98.0 F 84 16 122/57 H 98 Room Air 06/06/23 09:03 06/06/23 09:03 06/06/23 09:03 06/06/23 09:03 06/06/23 09:03 06/06/23 10:00 Oxygen Delivery Method Room Air Weight: 130 lb 8 oz Body Mass Index (BMI) 24.6 Intake & Output: Intake and Output for Last 24 Hours 06/04/23 06/05/23 06/06/23 23:59 23:59 23:59 Intake Total 550 / 550 1770 / 1770 200 / 200 Output Total 1750 / 1750 475 / 475 Balance 550 / 550 -275 / -275 Medical Nutrition Assessment Dietitian: Malnutrition Criteria Met Start: 06/05/23 12:37 Freq: Status: Active Protocol: Document 06/05/23 12:37 SLA (Rec: 06/05/23 12:37 SLA Desktop) Nutrition Malnutrition Evidence of Malnutrition Exists Yes Malnutrition (severe): Acute Illness/Injury Evidenced By Suboptimal Energy Intake ( Severe),Weight Loss (Severe) Clinical Problem Acute Disease or Injury Related Malnutrition Etiology related to of spouse 07/09 Signs/Symptoms as evidenced by pt consuming < 50% of est nutritional needs and 6.8% wt loss x 1 mo Status Active Problem Recommendation Dietitian Recommendations/Changes Will change diet to Regular No Added Salt/ Consistent CHO diet d/t signs/symptoms of malnutrition Will order 4 oz glucerna shake tid w/ medpass for increased nutrition if consumed. Lab / Micro Data 06/06/23 06:30 06/06/23 06:30 Labs: Laboratory Results - last 24 hr 06/05/23 11:07: POC Glucose 236 H 06/05/23 16:38: POC Glucose 277 H 06/05/23 21:27: POC Glucose 291 H 06/06/23 05:59: POC Glucose 190 H 06/06/23 06:30: WBC 7.2, RBC 4.05 L, Hgb 11.9 L, Hct 35.6 L, MCV 87.9, MCH 29.4, MCHC 33.4, RDW Std Deviation 45.7 H, RDW Coeff of Jesi 14.4, Plt Count 147 L, MPV 9.8, Immature Gran % (Auto) 0.400, Neut % (Auto) 63.3, Lymph % (Auto) 21.1, [place] % (Auto) 11.7 H, Eos % (Auto) 2.8, Baso % (Auto) 0.7, Absolute Neuts (auto) 4.6, Absolute Lymphs (auto) 1.52, Nucleated RBC % 0, Sodium 140, Potassium 4.1, Chloride 111 H, Carbon Dioxide 22.0, Anion Gap 7, BUN 53 H, Creatinine 1.87 H, Estim Creat Clear Calc 15.69, Est GFR (MDRD) Af Amer 33 L, Est GFR (MDRD) Non-Af 27 L, BUN/Creatinine Ratio 28.3 H, Glucose 140 H, Calcium 8.6 Micro: Microbiology 06/04/23 11:00 Urine, Clean Catch Urine Culture - Preliminary Citrobacter freundii GPC Poss Enterococcus sp Physical Exam Const alert and no apparent distress Constitutional Narrative: frail General Appearance: cooperative HEENT normocephalic, moist oral mucous membranes and oropharynx normal Eyes PERRL and EOMs intact bilaterally Neck no lymphadenopathy, supple and no JVD Lymph Lymphatic: no lymphadenopathy noted and no lymphedema noted Resp normal respiratory effort, normal air movement and clear to auscultation bilaterally Cardio regular rate, regular rhythm, S1 normal heart sound, S2 normal heart sound and no murmurs GI normal to inspection, nondistended, normoactive bowel sounds, soft to palpation, non-tender and non-distended Palpation: no hepatosplenomegaly Extremity normal capillary refill, no clubbing, cyanosis or edema and no calf tenderness General Extremity: no tenderness to palpation of joints or extremities Skin Skin Narrative: left periorbital ecchymosis from mechanical fall General Skin Exam: no breakdown Neuro CN's II-XII intact bilaterally, no focal motor deficits, no sensory deficits noted and deep tendon reflexes 2+ bilaterally Motor Exam: strength 5/5 throughout and general weakness Psych Psych Narrative: frail Appearance: appropriate Assessment & Plan Assessment/Plan (1) UTI (urinary tract infection): (2) Closed head injury: PLAN: Plan #weakness and debility due to mechanical falls * PT/OT on board * fall precautions * CT of the brain showed no acute intracranial pathology * being hydrated with IVF. Will continue * #UTI: * on IV ceftriaxone. Urine culture growing Citrobacter freundii and possible Enterococcus sp. * Citrobacter is sensitive to ceftriaxone so we will continue pending antibiotic sensitivity for the Enterococcus. * blood culture spending #Hypertension; resume BP meds as hypotension has resolved #CAD: s/p stents. On aspirin and plavix. On high intensity statin. #Hyperlipidemia: on pravastatin 20mg daily #Type 2 diabetes mellitus: On Lantus. Insulin sliding scale. Accu-Cheks ACHS. #Valvular heart disease s/p bioprosthetic aortic valve replacement: On Eliquis. #ANALISA on CKD stage IV: Cr today is down to 1.87. Baseline creatinine is around 1.67. Continue gentle hydration with iVF #HFpEF: on lasix and jardiance. Not in exacerbation DVT prophylaxis: Already on Eliquis CODE STATUS: Full code Charges/Coding Visit Charges Inpatient E&M: 10303 Subs Hosp L2
[2023-06-06 11:09] LABS: Bedside Glucose 184 mg/dL (74-106)
[2023-06-06 16:34] LABS: Bedside Glucose 238 mg/dL (74-106)
[2023-06-06] MEDS: Pravastatin 20 MG Tablet PO (21:48)
[2023-06-06] MEDS: amLODIPine 10 MG Tablet PO (22:13)
[2023-06-06] MEDS: Metoprolol(XL)Succ 25 MG Tablet PO (22:13)
[2023-06-06] MEDS: Glimepiride 1 MG Tablet PO (22:13)
[2023-06-07] VITALS (10 sets, daily range): BP systolic 115–139; BP diastolic 58–64; PULSE 66–91; RESP 16–18; TEMP 36.3–37.1; O2SAT 96–99; BMI 25.0
[2023-06-07] MEDS: Miconazole Nitrate 43 GM Bottle 1 APPLIC TOPICAL ×3 (05:30→22:04)
[2023-06-07 06:50] LABS: Bedside Glucose 102 mg/dL (74-106)
[2023-06-07 07:47] LABS: Absolute Lymphocyte Count 1.41 X10^3/uL (0.83-4.51); Absolute Neutrophil Count 6.6 X10^3/uL (2.0-7.7); Basophil# 0.04 X10^3/uL; Basophil% 0.4 % (0-1); Eosinophil# 0.19 X10^3/uL; Hematocrit 33.5 % (37-47); Hemoglobin 11.1 g/dL (12.0-15.0); Lymphocyte # 1.41 X10^3/ul (0.83-4.51); Lymphocyte % 15.2 % (19-41); Mean Corp Hgb Conc 33.1 g/dL (32-36); Mean Corpuscular Hgb 29.1 pg (27.0-32.0); Mean Corpuscular Volume 87.9 fL (81-99); Mean Platelet Vol. 9.5 fl (6.2-12.0); Monocyte# 0.97 X10^3/uL; Monocyte% 10.5 % (0-10); NRBC Flagged by Analyzer 0 % (0-5); Neutrophil # 6.64 X10^3/uL (2.7-7.7); Neutrophil % 71.6 % (47-70); Platelet Count 147 K/mm3 (150-450); RBC Distribution Width CV 14.1 % (11.6-14.6); RBC Distribution Width SD 43.9 fl (35.1-43.9); Red Blood Count 3.81 M/mm3 (4.2-5.4); White Blood Count 9.3 K/mm3 (4.4-11.0)
[2023-06-07 07:59] LABS: Anion Gap 7 (5-15); BUN 39 mg/dL (7-18); BUN/Creat Ratio 29.1 RATIO (10-20); Calcium,Total 8.3 mg/dL (8.5-10.1); Chloride 111 mmol/L (98-107); Creatinine, Serum 1.34 mg/dL (0.55-1.02); EST Glomerular Filtration Rate 40 mL/min (>60); Est Glom Filt Rate - Afr Amer 48 mL/min (>60); Glucose 90 mg/dL (74-106); Potassium 3.7 mmol/L (3.5-5.1); Sodium Level 140 mmol/L (136-145)
[2023-06-07] MEDS: Ceftriaxone 1 GM/50 ML BAG IV (09:33)
[2023-06-07] MEDS: APIXABAN 2.5 MG TABLET (WCH) PO ×2 (09:37→22:01)
[2023-06-07] MEDS: Potassium Chloride Oral Tablet 20 MEQ PO ×2 (09:37→17:08)
[2023-06-07] MEDS: Metoprolol(XL)Succ 100 MG Tablet PO (09:38)
[2023-06-07] MEDS: Empagliflozin 10 MG Tablet PO (09:38)
[2023-06-07] MEDS: Ferrous Sulfate 325 MG Tablet PO ×2 (09:39→17:07)
[2023-06-07] MEDS: Clopidogrel Bisulfate 75 MG Tablet PO (09:39)
[2023-06-07] MEDS: Aspirin 81 MG TAB.CHEW PO (09:39)
[2023-06-07] MEDS: Menthol/Lanolin/Calamine/Znox 113 GM Tube 1 APPLIC TOPICAL ×4 (09:39→22:04)
[2023-06-07] MEDS: 0.9% Saline Lock 10 ML Syringe IV (09:57)
[2023-06-07] MEDS: Insulin Lispro 100 UNIT/ML INSULN.PEN SC ×3 (11:36→22:02)
[2023-06-07] MEDS: Glucerna Shake 120 ML LIQUID PO ×2 (11:38→17:12)
[2023-06-07 11:59] LABS: Bedside Glucose 199 mg/dL (74-106)
[2023-06-07 17:28] LABS: Bedside Glucose 188 mg/dL (74-106)
[2023-06-07] MEDS: amLODIPine 10 MG Tablet PO (22:01)
[2023-06-07] MEDS: Glimepiride 1 MG Tablet PO (22:02)
[2023-06-07] MEDS: Metoprolol(XL)Succ 25 MG Tablet PO (22:02)
[2023-06-07] MEDS: Pravastatin 20 MG Tablet PO (22:02)
[2023-06-07 22:26] LABS: Bedside Glucose 205 mg/dL (74-106)
[2023-06-08] VITALS (11 sets, daily range): BP systolic 112–128; BP diastolic 53–61; PULSE 72–86; RESP 18; TEMP 36.6–36.9; O2SAT 97–99; BMI 25.2
[2023-06-08] MEDS: Miconazole Nitrate 43 GM Bottle 1 APPLIC TOPICAL ×3 (06:17→22:12)
[2023-06-08 07:01] LABS: Bedside Glucose 100 mg/dL (74-106)
[2023-06-08 07:03] LABS: Absolute Lymphocyte Count 1.45 X10^3/uL (0.83-4.51); Absolute Neutrophil Count 5.2 X10^3/uL (2.0-7.7); Basophil# 0.05 X10^3/uL; Basophil% 0.6 % (0-1); Eosinophil# 0.25 X10^3/uL; Eosinophils% 3.1 % (0-5); Hemoglobin 10.9 g/dL (12.0-15.0); Lymphocyte # 1.45 X10^3/ul (0.83-4.51); Lymphocyte % 18.2 % (19-41); Mean Corp Hgb Conc 34.1 g/dL (32-36); Mean Corpuscular Hgb 29.5 pg (27.0-32.0); Mean Corpuscular Volume 86.5 fL (81-99); Monocyte# 0.98 X10^3/uL; Monocyte% 12.3 % (0-10); NRBC Flagged by Analyzer 0 % (0-5); Neutrophil # 5.21 X10^3/uL (2.7-7.7); Neutrophil % 65.4 % (47-70); Platelet Count 144 K/mm3 (150-450); RBC Distribution Width CV 14.3 % (11.6-14.6); RBC Distribution Width SD 43.4 fl (35.1-43.9)
[2023-06-08 07:31] LABS: Anion Gap 7 (5-15); BUN 35 mg/dL (7-18); BUN/Creat Ratio 23.6 RATIO (10-20); Calcium,Total 8.4 mg/dL (8.5-10.1); Chloride 111 mmol/L (98-107); Creatinine, Serum 1.48 mg/dL (0.55-1.02); EST Glomerular Filtration Rate 35 mL/min (>60); Est Glom Filt Rate - Afr Amer 43 mL/min (>60); Estimated Creatinine Clearance 19.83 ml/min; Glucose 104 mg/dL (74-106); Potassium 3.9 mmol/L (3.5-5.1); Sodium Level 139 mmol/L (136-145)
[2023-06-08] MEDS: Ceftriaxone 1 GM/50 ML BAG IV (09:00)
[2023-06-08] MEDS: Aspirin 81 MG TAB.CHEW PO (09:02)
[2023-06-08] MEDS: Potassium Chloride Oral Tablet 20 MEQ PO ×2 (09:02→16:52)
[2023-06-08] MEDS: Menthol/Lanolin/Calamine/Znox 113 GM Tube 1 APPLIC TOPICAL ×4 (09:03→22:11)
[2023-06-08] MEDS: Ferrous Sulfate 325 MG Tablet PO ×2 (09:03→16:52)
[2023-06-08] MEDS: APIXABAN 2.5 MG TABLET (WCH) PO ×2 (09:04→22:07)
[2023-06-08] MEDS: Clopidogrel Bisulfate 75 MG Tablet PO (09:04)
[2023-06-08] MEDS: Empagliflozin 10 MG Tablet PO (09:04)
[2023-06-08] MEDS: Metoprolol(XL)Succ 100 MG Tablet PO (09:05)
[2023-06-08] MEDS: Glucerna Shake 120 ML LIQUID PO (09:16)
[2023-06-08] MEDS: Insulin Lispro 100 UNIT/ML INSULN.PEN SC ×3 (11:30→22:12)
[2023-06-08 11:57] LABS: Bedside Glucose 241 mg/dL (74-106)
[2023-06-08] MEDS: Acetaminophen 325 MG Tablet 650 MG PO (15:15)
--- NOTE | 2023-06-08 15:46 | CHAPLAIN ---
Type of Pastoral Visit _x__ Initial Visit ___ Follow-up Visit ___ On-call Visit ___ General Patient Visit ___ Spiritual Assessment ___ Family Conference ___ Bereavement ___ Rapid Response ___ Code Blue ___ Other (describe below) Pastoral Care Referral From _x__ Patient ___ Family ___ Nurse ___ Physician ___ Utility Aide ___ Rough Planer Tender ___ Other (describe below) Sacrament/Intervention _x__ Active listening ___ Anointing ___ Yazidi ___ Bereavement ___ Communion ___ Roxane exploration ___ ___ Life review _x__ Prayer ___ Reconciliation ___ Sacrament of Sick _x__ Supportive presence ___ Wedding ___ Other (describe below) Pastoral Comments several open ended questions to see how patient is coping with her health issues; pt states that she has good support from three sons and their wives; pt is focused on pain in her knee at this moment and RN comes into room to assist her; pt answers questions but appears to have low energy for much conversation; pt does welcome prayer for support
--- NOTE | 2023-06-08 15:55 | PN.HOSP_ITS ---
Subjective Subjective Doing well, no issues overnight. Objective Data Objective Data Vital Signs: Vital Signs Temp Pulse Resp BP Pulse Ox O2 Del Method 98.2 F 72 18 122/61 H 98 Room Air 06/08/23 15:10 06/08/23 15:10 06/08/23 15:10 06/08/23 15:10 06/08/23 15:10 06/08/23 15:10 Oxygen Delivery Method Room Air Weight: 133 lb 6.075 oz Body Mass Index (BMI) 25.2 Intake & Output: Intake and Output for Last 24 Hours 06/07/23 06/08/23 06/09/23 03:59 03:59 03:59 Intake Total 1100 / 1100 1200 / 1200 530 / 530 Output Total 2325 / 2325 2600 / 2600 800 / 800 Balance -1225 / -1225 -1400 / -1400 -270 / -270 Medical Nutrition Assessment Dietitian: Malnutrition Criteria Met Start: 06/05/23 12:37 Freq: Status: Active Protocol: Document 06/05/23 12:37 SLA (Rec: 06/05/23 12:37 SLA Desktop) Nutrition Malnutrition Evidence of Malnutrition Exists Yes Malnutrition (severe): Acute Illness/Injury Evidenced By Suboptimal Energy Intake ( Severe),Weight Loss (Severe) Clinical Problem Acute Disease or Injury Related Malnutrition Etiology related to of spouse 07/09 Signs/Symptoms as evidenced by pt consuming < 50% of est nutritional needs and 6.8% wt loss x 1 mo Status Active Problem Recommendation Dietitian Recommendations/Changes Will change diet to Regular No Added Salt/ Consistent CHO diet d/t signs/symptoms of malnutrition Will order 4 oz glucerna shake tid w/ medpass for increased nutrition if consumed. Lab / Micro Data 06/08/23 06:35 06/08/23 06:35 Labs: Laboratory Results - last 24 hr 06/07/23 17:05: POC Glucose 188 H 06/07/23 21:55: POC Glucose 205 H 06/08/23 06:16: POC Glucose 100 06/08/23 06:35: WBC 8.0, RBC 3.70 L, Hgb 10.9 L, Hct 32.0 L, MCV 86.5, MCH 29.5, MCHC 34.1, RDW Std Deviation 43.4, RDW Coeff of Jesi 14.3, Plt Count 144 L, MPV 10.0, Immature Gran % (Auto) 0.400, Neut % (Auto) 65.4, Lymph % (Auto) 18.2 L, [place] % (Auto) 12.3 H, Eos % (Auto) 3.1, Baso % (Auto) 0.6, Absolute Neuts (auto) 5.2, Absolute Lymphs (auto) 1.45, Nucleated RBC % 0, Sodium 139, Potassium 3.9, Chloride 111 H, Carbon Dioxide 21.0, Anion Gap 7, BUN 35 H, Creatinine 1.48 H, Estim Creat Clear Calc 19.83, Est GFR (MDRD) Af Amer 43 L, Est GFR (MDRD) Non-Af 35 L, BUN/Creatinine Ratio 23.6 H, Glucose 104, Calcium 8.4 L 06/08/23 11:28: POC Glucose 241 H Micro: Microbiology 06/04/23 11:00 Urine, Clean Catch Urine Culture - Final Citrobacter freundii Enterococcus faecalis Physical Exam Narrative General: Alert, Oriented x3, Cooperative, No apparent distress HEENT: Atraumatic, PERRLA, EOMI, Normocephalic, facial ecchymosis in various stages of healing Oral: Moist Mucosa Neck: Supple, No JVD Lungs: Clear to auscultation, Normal air movement, No rhonchi, No wheeze, No rales Cardiovascular: Regular rate, Regular Rhythm, Normal S1, Normal S2, No murmurs Abdomen: Soft, Non Tender, Non-Distended, No Hepato-splenomegaly Extremities: No edema, Capillary Refill Less than 3 Seconds Skin: No rashes, No breakdown Musculoskeletal: No Tenderness to Palpation of Joints or Extremities Neurological: Cranial nerves II-XII grossly intact, Motor Exam 5/5 strength throughout, Sensory exam intact to light touch and pain Psych/Mental Status: Flat Assessment & Plan Assessment/Plan (1) UTI (urinary tract infection): (2) Closed head injury: PLAN: Plan 1. Weakness and debility due to mechanical falls from UTI with Citrobacter and Enterococcus * PT/OT on board * fall precautions * CT of the brain showed no acute intracranial pathology * being hydrated with IVF. Will continue * Will complete IV Rocephin tomorrow and will continue with amoxicillin for the Enterobacter, this will be dosed at twice daily given her renal function 2. HTN/HLD/CAD status post stents/status post aortic valve replacement/chronic diastolic CHF ? Blood pressures are currently stable ? Can resume home blood pressure medications and monitor and make adjustments as necessary ? Continue with aspirin and Plavix ? Continue with Lipitor ? Continue with her Jardiance, will hold her Lasix secondary to her renal function however this can likely be restarted on discharge 3. DM2/CKD 4 ? Continue with insulin ? Accu-Cheks ACHS ? We will monitor and make adjustments as necessary ? Renal function appears to be at baseline, will monitor DVT: Eliquis Charges/Coding Visit Charges Inpatient E&M: 77499 Subs Hosp L2
[2023-06-08] MEDS: AMOXICILLIN 500 MG CAPSULE PO ×2 (16:51→22:22)
[2023-06-08 17:22] LABS: Bedside Glucose 268 mg/dL (74-106)
[2023-06-08] MEDS: Pravastatin 20 MG Tablet PO (22:06)
[2023-06-08] MEDS: Glimepiride 1 MG Tablet PO (22:06)
[2023-06-08] MEDS: amLODIPine 10 MG Tablet PO (22:07)
[2023-06-08] MEDS: Metoprolol(XL)Succ 25 MG Tablet PO (22:10)
[2023-06-08 22:41] LABS: Bedside Glucose 215 mg/dL (74-106)
[2023-06-09 03:56] VITALS: BMI 25.4
[2023-06-09 04:11] VITALS: BP 139/60; PULSE 83; RESP 18; TEMP 36.6; O2SAT 99
[2023-06-09 05:45] LABS: Absolute Lymphocyte Count 1.21 X10^3/uL (0.83-4.51); Absolute Neutrophil Count 5.5 X10^3/uL (2.0-7.7); Basophil# 0.04 X10^3/uL; Basophil% 0.5 % (0-1); Eosinophil# 0.34 X10^3/uL; Eosinophils% 4.2 % (0-5); Hematocrit 30.9 % (37-47); Hemoglobin 10.2 g/dL (12.0-15.0); Lymphocyte # 1.21 X10^3/ul (0.83-4.51); Lymphocyte % 14.9 % (19-41); Mean Corpuscular Hgb 29.2 pg (27.0-32.0); Mean Corpuscular Volume 88.5 fL (81-99); Mean Platelet Vol. 9.7 fl (6.2-12.0); Monocyte# 0.98 X10^3/uL; Monocyte% 12.1 % (0-10); NRBC Flagged by Analyzer 0 % (0-5); Neutrophil # 5.49 X10^3/uL (2.7-7.7); Neutrophil % 67.8 % (47-70); Platelet Count 141 K/mm3 (150-450); RBC Distribution Width CV 14.6 % (11.6-14.6); RBC Distribution Width SD 45.9 fl (35.1-43.9); Red Blood Count 3.49 M/mm3 (4.2-5.4); White Blood Count 8.1 K/mm3 (4.4-11.0)
[2023-06-09 06:19] LABS: Anion Gap 2 (5-15); BUN 41 mg/dL (7-18); BUN/Creat Ratio 24.8 RATIO (10-20); Calcium,Total 8.2 mg/dL (8.5-10.1); Chloride 112 mmol/L (98-107); Creatinine, Serum 1.65 mg/dL (0.55-1.02); EST Glomerular Filtration Rate 31 mL/min (>60); Est Glom Filt Rate - Afr Amer 38 mL/min (>60); Estimated Creatinine Clearance 17.78 ml/min; Glucose 112 mg/dL (74-106); Potassium 4.3 mmol/L (3.5-5.1); Sodium Level 137 mmol/L (136-145)
[2023-06-09] MEDS: Miconazole Nitrate 43 GM Bottle 1 APPLIC TOPICAL ×2 (06:50→11:48)
[2023-06-09 07:24] LABS: Bedside Glucose 99 mg/dL (74-106)
[2023-06-09 07:35] VITALS: O2SAT 98
[2023-06-09 08:10] VITALS: O2SAT 98
[2023-06-09] MEDS: Menthol/Lanolin/Calamine/Znox 113 GM Tube 1 APPLIC TOPICAL ×2 (08:45→11:48)
[2023-06-09] MEDS: Potassium Chloride Oral Tablet 20 MEQ PO (08:45)
[2023-06-09] MEDS: Aspirin 81 MG TAB.CHEW PO (08:45)
[2023-06-09] MEDS: Ferrous Sulfate 325 MG Tablet PO (08:45)
[2023-06-09] MEDS: Glucerna Shake 120 ML LIQUID PO ×2 (08:48→11:47)
[2023-06-09 09:26] VITALS: PULSE 83
[2023-06-09] MEDS: Ceftriaxone 1 GM/50 ML BAG IV (09:26)
[2023-06-09] MEDS: APIXABAN 2.5 MG TABLET (WCH) PO (09:26)
[2023-06-09] MEDS: Clopidogrel Bisulfate 75 MG Tablet PO (09:26)
[2023-06-09] MEDS: Metoprolol(XL)Succ 100 MG Tablet PO (09:26)
[2023-06-09] MEDS: Empagliflozin 10 MG Tablet PO (09:26)
[2023-06-09] MEDS: 0.9% Saline Lock 10 ML Syringe IV (09:26)
[2023-06-09] MEDS: AMOXICILLIN 500 MG CAPSULE PO (09:35)
[2023-06-09 10:00] VITALS: BP 119/57; PULSE 83; RESP 18; TEMP 36.7; O2SAT 100
--- NOTE | 2023-06-09 11:24 | DCINST_ITS ---
Discharge Instructions Diet Discharge Diet: Low fat / Low cholesterol and Carb Control Diet Activity Discharge Activity: Return to Normal Activity Dressing / Incision Call your doctor if you observe: Fever of 101 or Higher, Shortness of breath, Dizziness, Fainting spells, Swelling in the ankles, Chest pain and Increased palpitations (irregular heartbeat) Follow Up Care Test Results: Test results from this visit will be discussed in further detail at your follow- up appointment, if applicable. Discharge Plan Admission Admit Date/Time: 06/04/23 13:37 Attending Provider: Rico Shepherd Primary Care Provider: Ventura Baron Consulting Providers: Breanna Guerra; Tameka Mendoza Discharge Orders/Prescriptions Prescriptions: New amoxicillin 500 mg Capsule 500 mg PO Q12 5 Days Qty: 10 0RF Continued Eliquis 2.5 mg tablet 2.5 mg PO BID Hold Instructions: Resume on 10/17/21. pravastatin 20 mg tablet 20 mg PO DAILY Jardiance 10 mg tablet 10 mg PO DAILY furosemide [Lasix] 20 mg tablet 20 mg PO BID aspirin 81 MG tablet,chewable 81 mg PO DAILY@0800 Patient Comments: heart health amlodipine 10 MG tablet 10 mg PO QHS Patient Comments: BLOOD PRESSURE/HEART losartan 50 mg tablet 50 mg PO BID Hold Instructions: Resume on 10/06/22. metoprolol succinate 25 mg tablet extended release 24 hr 25 mg PO QHS glimepiride 1 mg tablet 1 mg PO QHS Rx Instructions: 2 mg qam metoprolol succinate 100 mg Tablet Extended Release 24 Hr 100 mg PO DAILY potassium chloride [Klor-Con M20] 20 mEq Tablet,Er Particles/Crystals 20 meq PO BIDCM Qty: 60 0RF ferrous sulfate 325 mg (65 mg iron) tablet 325 mg PO BID Qty: 60 0RF furosemide 40 mg tablet 40 mg PO BID glipizide 5 mg tablet 5 mg PO DAILY clopidogrel 75 mg tablet 75 mg PO DAILY Patient Comments: TAKE 1 TABLET BY MOUTH ONCE DAILY Referrals / Follow Up: Ventura Baron DO [Primary Care Provider] - 06/17/23 9:10 am Disposition Disposition (needs filled in before D/C Order can be placed): Home Health Service
--- NOTE | 2023-06-09 11:27 | DS.PCM_ITS ---
Providers Date of Admission: 06/04/23 Primary Care Physician: Dr. Ventura Baron, DO Reason For Visit: ENCEPHALOPATHY Diagnosis Discharge Diagnosis (1) UTI (urinary tract infection): Status: Acute Code(s): N39.0 - Urinary tract infection, site not specified (2) Closed head injury: Status: Acute Code(s): S09.90XA - Unspecified injury of head, initial encounter Plan 1. Weakness and debility due to mechanical falls from UTI with Citrobacter and Enterococcus * PT/OT on board * fall precautions * CT of the brain showed no acute intracranial pathology * being hydrated with IVF. Will continue * Will complete IV Rocephin tomorrow and will continue with amoxicillin for the Enterobacter, this will be dosed at twice daily given her renal function 2. HTN/HLD/CAD status post stents/status post aortic valve replacement/chronic diastolic CHF ? Blood pressures are currently stable ? Can resume home blood pressure medications and monitor and make adjustments as necessary ? Continue with aspirin and Plavix ? Continue with Lipitor ? Continue with her Jardiance, will hold her Lasix secondary to her renal function however this can likely be restarted on discharge 3. DM2/CKD 4 ? Continue with insulin ? Accu-Cheks ACHS ? We will monitor and make adjustments as necessary ? Renal function appears to be at baseline, will monitor DVT: Eliquis Medications at Discharge Home Medications aspirin 81 mg chewable tablet 81 mg PO DAILY@0800 BLOOD THINNER 04/21/17 amlodipine 10 mg tablet 10 mg PO QHS BP 04/28/17 apixaban 2.5 mg tablet (Eliquis) 2.5 mg PO BID BLOOD THINNER 09/07/19 losartan 50 mg tablet 50 mg PO BID BP 06/19/22 metoprolol succinate 25 mg tablet,extended release 24 hr 25 mg PO QHS blood pressure 06/19/22 metoprolol succinate 100 mg tablet,extended release 24 hr 100 mg PO DAILY blood pressure 07/30/22 ferrous sulfate 325 mg (65 mg iron) tablet 325 mg PO BID supplement #60 tabs 10/19/22 potassium chloride 20 mEq tablet,extended release(part/cryst) (Klor-Con M) 20 meq PO BIDCM supplement #60 tabs 10/19/22 empagliflozin 10 mg tablet (Jardiance) 10 mg PO DAILY diabetes 02/09/23 furosemide 20 mg tablet (Lasix) 20 mg PO BID diuretic 02/09/23 glimepiride 1 mg tablet 1 mg PO QHS diabetes 02/09/23 pravastatin 20 mg tablet 20 mg PO DAILY cholesterol 02/09/23 clopidogrel 75 mg tablet 75 mg PO DAILY anti platelet 06/04/23 furosemide 40 mg tablet 40 mg PO BID diuretic 06/04/23 glipizide 5 mg tablet 5 mg PO DAILY diabetes 06/04/23 amoxicillin 500 mg capsule 500 mg PO Q12 5 days #10 caps 06/09/23 Hospital Course Operations None Procedures None Summary of Care Provided Minutes Spent on Discharge: 37 Hospital Course: Per HPI: The patient is an 87 y/o F w/ PMHx: Diabetes mellitus type II, CKD stage III unclear subtype-->appears to be now CKD stage IV, HTN, HLD, Chronic Combined HF/Ischemic cardiomyopathy, Valvular Heart Disease s/p TAVR, PAF, Hx renal artery stenosis, CAD s/p PCI who presents to the [facility] ED on 06/04/23 with history of unfortunately mechanical fall slightly past midnight hitting her head on the door jam with unclear specific events during the fall with upon ED arrival evidence of ecchymoses to the left periorbital region and bruising to t he lips with headache associated although family does report dizziness recently as well primarily with positional changes. In addition family reports recent urinary symptoms including increased urinary frequency. Family present and patient do report that her passed 1 month prior. She does live in a 1 level home except her laundry system is in the basement of note. Work-up in the ED included T97, heart rate 71, BP initially 97/54 with most recent repeat 112/57, respiratory rate 16, 97% on room air, CBC with WBC 9.4, hemoglobin 13.5, platelet 195 without marked shift, coags with PT 16.6, INR 1.3, BMP with BUN/creatinine 69/2.50, glucose 169, urinalysis noted to be cloudy, specific r emedy 1.010, protein 15, glucose 250, ketone negative, occult blood 250, positive nitrite, leukocyte Estrace 500 with urine WBCs 10-25 with 3+ urine bacteria, urine culture pending per ED, CT brain with no acute intracranial findings with senescent changes, EKG with sinus rhythm with nonspecific changes with no acute evidence of ischemia. In the ED patient ministered tetanus update as well as IV Rocephin 1 g IV x1 and 500 cc normal saline bolus. Hospital Course: 1. Weakness and debility with mechanical fall secondary to UTI from Citrobacter and Enterococcus?87-year-old female presented to the hospital after some weakness and a fall into a door frame with significant ecchymosis over her face no fractures seen on CT brain. She was found to have a UTI and was initially started on Rocephin cultures came back with Citrobacter which was treated by Rocephin but did not treat the Enterococcus which was a greater concentration of bacteria in her urine. She was started on amoxicillin yesterday which she has tolerated at twice daily dosing secondary to her renal function. She would like to go home with home health care, I discussed with her the plan for discharge today she expressed understanding of the risk benefits of going home and like to go home today. She did complete approximately 5 days of Rocephin for the Citrobacter and will complete another 5 days of amoxicillin for the Enterococcus. I do recommend that she follow-up with her PCP in 3 to 5 days for outpatient monitoring. 2. Hypertension, hyperlipidemia, coronary artery disease status post stent, status post aortic valve replacement, chronic diastolic CHF, type 2 diabetes, CKD 4 are all chronic medical conditions which complicate her care. Her home medications were continued where appropriate Physical Exam Narrative General: Alert, Oriented x3, Cooperative, No apparent distress HEENT: Atraumatic, PERRLA, EOMI, Normocephalic, facial ecchymosis in various stages of healing Oral: Moist Mucosa Neck: Supple, No JVD Lungs: Clear to auscultation, Normal air movement, No rhonchi, No wheeze, No rales Cardiovascular: Regular rate, Regular Rhythm, Normal S1, Normal S2, No murmurs Abdomen: Soft, Non Tender, Non-Distended, No Hepato-splenomegaly Extremities: No edema, Capillary Refill Less than 3 Seconds Skin: No rashes, No breakdown Musculoskeletal: No Tenderness to Palpation of Joints or Extremities Neurological: Cranial nerves II-XII grossly intact, Motor Exam 5/5 strength throughout, Sensory exam intact to light touch and pain Psych/Mental Status: Flat Medical Records Data Medical Nutrition Assessment Dietitian: Malnutrition Criteria Met Start: 06/05/23 12:37 Freq: Status: Active Protocol: Document 06/05/23 12:37 SLA (Rec: 06/05/23 12:37 SLA Desktop) Nutrition Malnutrition Evidence of Malnutrition Exists Yes Malnutrition (severe): Acute Illness/Injury Evidenced By Suboptimal Energy Intake ( Severe),Weight Loss (Severe) Clinical Problem Acute Disease or Injury Related Malnutrition Etiology related to of spouse 07/09 Signs/Symptoms as evidenced by pt consuming < 50% of est nutritional needs and 6.8% wt loss x 1 mo Status Active Problem Recommendation Dietitian Recommendations/Changes Will change diet to Regular No Added Salt/ Consistent CHO diet d/t signs/symptoms of malnutrition Will order 4 oz glucerna shake tid w/ medpass for increased nutrition if consumed. Weight / BMI Weight Weight: 134 lb 11.239 oz Body Mass Index (BMI) 25.4 ABG / Lab / Microbiology Data 06/09/23 05:35 06/09/23 05:35 Laboratory: Laboratory Results - last 24 hr 06/08/23 11:28: POC Glucose 241 H 06/08/23 16:58: POC Glucose 268 H 06/08/23 22:01: POC Glucose 215 H 06/09/23 05:35: WBC 8.1, RBC 3.49 L, Hgb 10.2 L, Hct 30.9 L, MCV 88.5, MCH 29.2, MCHC 33.0, RDW Std Deviation 45.9 H, RDW Coeff of Jesi 14.6, Plt Count 141 L, MPV 9.7, Immature Gran % (Auto) 0.500, Neut % (Auto) 67.8, Lymph % (Auto) 14.9 L, [place] % (Auto) 12.1 H, Eos % (Auto) 4.2, Baso % (Auto) 0.5, Absolute Neuts (auto) 5.5, Absolute Lymphs (auto) 1.21, Nucleated RBC % 0, Sodium 137, Potassium 4.3, Chloride 112 H, Carbon Dioxide 23.0, Anion Gap 2 L, BUN 41 H, Creatinine 1.65 H, Estim Creat Clear Calc 17.78, Est GFR (MDRD) Af Amer 38 L, Est GFR (MDRD) Non-Af 31 L, BUN/Creatinine Ratio 24.8 H, Glucose 112 H, Calcium 8.2 L 06/09/23 06:49: POC Glucose 99 Microbiology: Microbiology 06/04/23 11:00 Urine, Clean Catch Urine Culture - Final Citrobacter freundii Enterococcus faecalis D/C Instructions Discharge Diet: Low fat / Low cholesterol and Carb Control Diet Call your doctor if you observe: Fever of 101 or Higher, Shortness of breath, Dizziness, Fainting spells, Swelling in the ankles, Chest pain and Increased palpitations (irregular heartbeat) Meaningful Use Info Meaningful Use Diagnoses (Choose all that apply): None applicable Discharge Plan Admission Admit Date/Time: 06/04/23 13:37 Attending Provider: Rico Shepherd Primary Care Provider: Ventura Baron Consulting Providers: Breanna Guerra; Tameka Mendoza Discharge Orders/Prescriptions Prescriptions: New amoxicillin 500 mg Capsule 500 mg PO Q12 5 Days Qty: 10 0RF Continued Eliquis 2.5 mg tablet 2.5 mg PO BID Hold Instructions: Resume on 10/17/21. pravastatin 20 mg tablet 20 mg PO DAILY Jardiance 10 mg tablet 10 mg PO DAILY furosemide [Lasix] 20 mg tablet 20 mg PO BID aspirin 81 MG tablet,chewable 81 mg PO DAILY@0800 Patient Comments: heart health amlodipine 10 MG tablet 10 mg PO QHS Patient Comments: BLOOD PRESSURE/HEART losartan 50 mg tablet 50 mg PO BID Hold Instructions: Resume on 10/06/22. metoprolol succinate 25 mg tablet extended release 24 hr 25 mg PO QHS glimepiride 1 mg tablet 1 mg PO QHS Rx Instructions: 2 mg qam metoprolol succinate 100 mg Tablet Extended Release 24 Hr 100 mg PO DAILY potassium chloride [Klor-Con M20] 20 mEq Tablet,Er Particles/Crystals 20 meq PO BIDCM Qty: 60 0RF ferrous sulfate 325 mg (65 mg iron) tablet 325 mg PO BID Qty: 60 0RF furosemide 40 mg tablet 40 mg PO BID glipizide 5 mg tablet 5 mg PO DAILY clopidogrel 75 mg tablet 75 mg PO DAILY Patient Comments: TAKE 1 TABLET BY MOUTH ONCE DAILY Referrals / Follow Up: Ventura Baron DO [Primary Care Provider] - 06/17/23 9:10 am Disposition Disposition (needs filled in before D/C Order can be placed): Home Health Service Charges/Coding Visit Charges Inpatient E&M: 79798 Disch Hosp >30min
[2023-06-09] MEDS: oxyCODONE 5 MG Tablet PO (11:38)
--- NOTE | 2023-06-09 11:43 | PHA.DC.MC.R ---
Pharmacy [facility] has performed discharge medication reconciliation and counseling for this patient. The patient's discharge medication list was reviewed for discrepancies and discrepancies were resolved. The patient was counseled on the following discharge medications and changes in medications for homegoing were reviewed. The Reason for Use, instructions for use, and potential side effects were reviewed for all new medications. The patient's questions regarding all of their medications were answered. 1. Amoxicillin 500 mg PO BID x 5 days The patient was able to verbally demonstrate an understanding of their discharge medications. Medications at Discharge Home Medications aspirin 81 mg chewable tablet 81 mg PO DAILY@0800 BLOOD THINNER 04/21/17 amlodipine 10 mg tablet 10 mg PO QHS BP 04/28/17 apixaban 2.5 mg tablet (Eliquis) 2.5 mg PO BID BLOOD THINNER 09/07/19 losartan 50 mg tablet 50 mg PO BID BP 06/19/22 metoprolol succinate 25 mg tablet,extended release 24 hr 25 mg PO QHS blood pressure 06/19/22 metoprolol succinate 100 mg tablet,extended release 24 hr 100 mg PO DAILY blood pressure 07/30/22 ferrous sulfate 325 mg (65 mg iron) tablet 325 mg PO BID supplement #60 tabs 10/19/22 potassium chloride 20 mEq tablet,extended release(part/cryst) (Klor-Con M) 20 meq PO BIDCM supplement #60 tabs 10/19/22 empagliflozin 10 mg tablet (Jardiance) 10 mg PO DAILY diabetes 02/09/23 furosemide 20 mg tablet (Lasix) 20 mg PO BID diuretic 02/09/23 glimepiride 1 mg tablet 1 mg PO QHS diabetes 02/09/23 pravastatin 20 mg tablet 20 mg PO DAILY cholesterol 02/09/23 clopidogrel 75 mg tablet 75 mg PO DAILY anti platelet 06/04/23 furosemide 40 mg tablet 40 mg PO BID diuretic 06/04/23 glipizide 5 mg tablet 5 mg PO DAILY diabetes 06/04/23 amoxicillin 500 mg capsule 500 mg PO Q12 5 days #10 caps 06/09/23
[2023-06-09] MEDS: Insulin Lispro 100 UNIT/ML INSULN.PEN SC (11:47)
[2023-06-09 12:17] LABS: Bedside Glucose 271 mg/dL (74-106)
--- NOTE | 2023-06-09 12:40 | CASEMGMT ---
Patient has order for discharge. RN MELINA updated [facility], start of care planned for tomorrow. RN MELINA called son Rene to updated regarding HHC and discharge. Rene had no further questions or concerns at this time. RN MELINA updated discharge plan.
== END 2023-06-09 13:54 | disposition home health service (06) | DRG 689 ==
LOC: ED 13:01 → PCU 13:41
PROVIDERS: Student in an Organized Health Care Education/Training Program; Admitting Provider Family Medicine; Emergency Provider Emergency Medicine; PCP Family Medicine; Visit Provider Family Medicine
DX: N39.0 Urinary tract infection, site not specified (principal); E43 Unspecified severe protein-calorie malnutrition; N17.9 Acute kidney failure, unspecified; I13.0 Hypertensive heart and chronic kidney disease with heart failure and stage 1 through stage 4 chronic kidney disease, or unspecified chronic kidney disease; I50.32 Chronic diastolic (congestive) heart failure; N18.4 Chronic kidney disease, stage 4 (severe); S09.90XA Unspecified injury of head, initial encounter; E11.22 Type 2 diabetes mellitus with diabetic chronic kidney disease; D50.9 Iron deficiency anemia, unspecified; B95.2 Enterococcus as the cause of diseases classified elsewhere; I48.0 Paroxysmal atrial fibrillation; E11.51 Type 2 diabetes mellitus with diabetic peripheral angiopathy without gangrene; Z79.4 Long term (current) use of insulin; E78.5 Hyperlipidemia, unspecified; S05.12XA Contusion of eyeball and orbital tissues, left eye, initial encounter; I25.5 Ischemic cardiomyopathy; I25.10 Atherosclerotic heart disease of native coronary artery without angina pectoris; W19.XXXA Unspecified fall, initial encounter; Z95.2 Presence of prosthetic heart valve; Z79.82 Long term (current) use of aspirin; Z79.02 Long term (current) use of antithrombotics/antiplatelets; Z79.84 Long term (current) use of oral hypoglycemic drugs; Z79.01 Long term (current) use of anticoagulants; R53.81 Other malaise; Z23 Encounter for immunization; Z68.25 Body mass index [BMI] 25.0-25.9, adult
CPT/HCPCS: 36415; 70450; 80048; 80053; 81001; 82962; 83605; 83735; 85025; 85610; 87040; 87077; 87086; 87088; 87186; 90715; 93005; 94668; 97110; 97116; 97162; 97166; 97530; 97535; 99252; 99285; J7030; J7040; P9612; A4216; G0463

== ENCOUNTER 2023-06-16 10:05 | Emergency (ER) | payer MEDICARE, OTHER, SELFPAY ==
[2023-06-16 10:06] VITALS: BP 128/60; PULSE 89; RESP 20; TEMP 36.6; O2SAT 100; BMI 27.6
--- NOTE | 2023-06-16 10:39 | ED.VIS.GI ---
HPI HPI - GI History of Present Illness Chief Complaint: Abd Pain Informant: patient and family Abdominal Pain/Flank Pain Onset: Today Context: Sudden Onset Timing: Waxes and wanes Location: Diffuse Worsened by: Nothing Relieved by: Nothing Nausea/Vomiting/Emesis GI Symptom: Negative for Nausea or Vomiting Diarrhea/Melena/Hematochezia GI Symptom: Negative for Diarrhea, Melena or Hematochezia Associated Symptoms Associated Symptoms: Negative for Dysuria, Frequency or Hematuria Narrative Narrative: Patient presents with abdominal pain and shortness of breath that began this morning. Family states patient ate breakfast today and then went and sat down in the living room. Family states patient started complaining of shortness of breath and then developed some abdominal pain. Currently, patient states her symptoms have resolved. Patient denies any cough. Patient states her pain was diffuse across her abdomen. Patient states nothing made it better and nothing made it worse. Patient denies any nausea or vomiting. Patient denies any diarrhea, melena, or hematochezia. Patient denies any dysuria or frequency. Family states patient was recently admitted to the hospital for urinary tract infection but completed her antibiotics 4 days ago. 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) Hyperlipidemia Hypertension associated with diabetes Hypoxia Ischemic cardiomyopathy Mitral annular calcification Nonrheumatic aortic (valve) stenosis Nonrheumatic mitral (valve) insufficiency Normocytic anemia Paroxysmal atrial fibrillation Renal artery stenosis Home Medications aspirin 81 mg chewable tablet 81 mg PO DAILY@0800 BLOOD THINNER 04/21/17 [History Last Taken 06/18/22] amlodipine 10 mg tablet 10 mg PO QHS BP 04/28/17 [History Last Taken 06/18/22] apixaban 2.5 mg tablet (Eliquis) 2.5 mg PO BID BLOOD THINNER 09/07/19 [History Last Taken 06/18/22] losartan 50 mg tablet 50 mg PO BID BP 06/19/22 [History Last Taken 06/18/22] metoprolol succinate 25 mg tablet,extended release 24 hr 25 mg PO QHS blood pressure 06/19/22 [History Last Taken 06/18/22] metoprolol succinate 100 mg tablet,extended release 24 hr 100 mg PO DAILY blood pressure 07/30/22 [History Last Taken Unknown] ferrous sulfate 325 mg (65 mg iron) tablet 325 mg PO BID supplement #60 tabs 10/19/22 [Rx Last Taken Unknown] potassium chloride 20 mEq tablet,extended release(part/cryst) (Klor-Con M) 20 meq PO BIDCM supplement #60 tabs 10/19/22 [Rx Last Taken Unknown] empagliflozin 10 mg tablet (Jardiance) 10 mg PO DAILY diabetes 02/09/23 [History Last Taken Unknown] furosemide 20 mg tablet (Lasix) 20 mg PO BID diuretic 02/09/23 [History Last Taken Unknown] glimepiride 1 mg tablet 1 mg PO QHS diabetes 02/09/23 [History Last Taken Unknown] pravastatin 20 mg tablet 20 mg PO DAILY cholesterol 02/09/23 [History Last Taken Unknown] clopidogrel 75 mg tablet 75 mg PO DAILY anti platelet 06/04/23 [History Last Taken Unknown] furosemide 40 mg tablet 40 mg PO BID diuretic 06/04/23 [History Last Taken Unknown] glipizide 5 mg tablet 5 mg PO DAILY diabetes 06/04/23 [History Last Taken Unknown] amoxicillin 500 mg capsule 500 mg PO Q12 5 days #10 caps 06/09/23 [Rx Last Taken Unknown] Allergy/AdvReac Type Severity Reaction Status Date / Time No Known Allergies Allergy Verified 06/16/23 10:09 Family History Sister Asthma Breast cancer Hypertension Hyperlipidemia Melanoma Father , From old age per patient. Denies specific medical problems. No problems noted. Mother , From old age per patient. Denies specific medical problems. No problems noted. Surgical History History of appendectomy History of coronary angioplasty (09/18/21) History of left heart catheterization (04/2017) History of percutaneous transluminal coronary angioplasty (~09/18/21) S/P TAVR (transcatheter aortic valve replacement) Social History household members: none Smoking Status: Never smoker alcohol intake: never substance use type: does not use caffeine: Yes Type: coffee Number of servings: 1 ROS ROS ED Constitutional Constitutional ED: Denies chills or fever(s) Eyes Eyes: Denies blurry vision or change in vision ENT ENT ED: Denies rhinorrhea or sore throat Cardiovascular Cardiovascular: Denies chest pain or palpitations Respiratory/Chest Respiratory/Chest: Reports dyspnea; Denies cough Gastrointestinal Gastrointestinal: Reports abdominal pain; Denies nausea or vomiting Genitourinary Genitourinary ED: Denies dysuria or hematuria Musculoskeletal Musculoskeletal: Denies back pain or neck pain Integumentary Denies abscess or rash Neurologic Neurologic: Denies headache(s) or weakness Allergic/Immunologic Allergic/Immunologic ED: Denies mouth swelling or urticaria EXAM Physical Exam Const Vital Signs: 06/16/23 10:06 06/16/23 10:58 06/16/23 12:05 Temperature 98 F Temperature Source Temporal Pulse Rate 89 92 94 Respiratory Rate 20 H 21 H 23 H Blood Pressure 128/60 H 131/61 H 125/66 H Blood Pressure Mean 82 84 85 Pulse Ox 100 97 97 Oxygen Delivery Method Room Air Room Air Room Air Positive well nourished and well developed General Appearance ED: well developed HEENT Reports moist mucous membranes HEENT Narrative: There is old ecchymosis over the left forehead and periorbital area. This also extends into the right periorbital area. There is no bony crepitance or step-off. There is no tenderness noted. Eyes PERRL and EOMs intact bilaterally Neck supple and no JVD Resp normal respiratory effort and clear to auscultation bilaterally Cardio regular rate and regular rhythm GI non-tender and non-distended Auscultation: normoactive bowel sounds Palpation: soft Neuro CN's II-XII intact bilaterally, moves all extremities and no sensory deficits noted Sensorium / Orientation: alert Psych mental status grossly normal and thought process normal MDM MDM MDM Narrative Medical decision making narrative: Differential diagnosis includes cardiac dysrhythmia, cardiac ischemia, electrolyte abnormality, gastroenteritis, pneumonia, pneumothorax, and anxiety. EKG will be obtained to assess for cardiac dysrhythmia and cardiac ischemia. Chest x-ray will be obtained to assess for pneumonia and pneumothorax. CBC will be obtained to assess for leukocytosis and anemia. Basic metabolic profile will be obtained to assess for electrolyte abnormality and renal function. High-sensitivity troponin will be obtained to assess for cardiac ischemia. History & Record Review Additional record(s) reviewed:: Prior labs Lab Data Attestation: I reviewed the patient's lab results. Lab results narrative: CBC was reviewed. There is a mild anemia with a hemoglobin of 10.0 and hematocrit of 29.8. This is unchanged compared to previous results. Basic metabolic profile was reviewed. BUN was slightly elevated at 69 and creatinine was 2.28. Glucose was slightly elevated at 222. Anion gap was normal. These are consistent with prior results. Urinalysis was reviewed. There is no evidence of urinary tract infection or hematuria. Labs: Laboratory Results - last 24 hr 06/16/23 06/16/23 10:10 11:40 WBC 9.3 RBC 3.25 L Hgb 10.0 L Hct 29.8 L MCV 91.7 MCH 30.8 MCHC 33.6 RDW Std Deviation 53.3 H RDW Coeff of Jesi 17.3 H Plt Count 305 MPV 9.7 Immature Gran % (Auto) 0.500 Neut % (Auto) 73.2 H Lymph % (Auto) 16.7 L [place] % (Auto) 8.5 Eos % (Auto) 0.8 Baso % (Auto) 0.3 Absolute Neuts (auto) 6.8 Absolute Lymphs (auto) 1.55 Nucleated RBC % 0 Sodium 134 L Potassium 4.9 Chloride 104 Carbon Dioxide 20.0 L Anion Gap 10 BUN 69 H Creatinine 2.28 H Estim Creat Clear Calc 12.87 Est GFR (MDRD) Af Amer 26 L Est GFR (MDRD) Non-Af 21 L BUN/Creatinine Ratio 30.3 H Glucose 222 H Calcium 9.1 Troponin I High Sens 28 Urine Color Yellow Urine Clarity Clear Urine pH 6.0 Ur Specific [place] 1.010 Urine Protein 15 H Urine Glucose (UA) 100 H Urine Ketones Negative Urine Occult Blood Negative Urine Nitrite Negative Urine Bilirubin Negative Urine Urobilinogen Normal Ur Leukocyte Esterase Negative Urine RBC 0 SEEN Urine WBC 0 SEEN Ur Squamous Epith Cells 0 SEEN Urine Bacteria 0 SEEN Urine Mucus 0 SEEN Radiography Chest X-Ray - ED: 1 View, Read by ED Physician, Read by Radiologist and No Acute Disease Diagnostic Testing: Clinical Impression(s) from Imaging Studies Chest X-Ray 06/16/23 11:10 IMPRESSION: No acute abnormality is seen. Electronically Signed: Randolph Fallon MD at 12:40 EDT , Portable 1 view chest x-ray was obtained. On my independent interpretation, lung meza are clear. There is normal cardiac silhouette. Bony thorax is normal. There is no acute process noted. Radiologist also interpreted the x-ray and agrees. EKG Initial EKG: Attestation: I personally reviewed and interpreted this EKG as follows: Interpretation: Sinus Rhythm (86) and No Acute Injury Pattern Comments: EKG was obtained. On my independent interpretation, it showed a normal sinus rhythm with a rate of 86. ND interval, QRS interval, and QTc intervals were all normal. There is left axis deviation at -31. There are no acute ST or T wave changes. Treatment and Re-Evaluation :: Patient felt like she was constipated. Patient was given soapsuds enema here. Patient had minimal results with this. Patient was feeling better on reevaluation however. Patient was advised of her findings. Patient was instructed to use [id number] laxatives such as MiraLAX to help with constipation. Patient was instructed to follow-up with her primary care physician in 5 to 7 days. Patient was instructed return if worse in any way. Patient understood and was agreeable with the plan. All questions were answered. Discharge Plan Triage Chief Complaint: Abd Pain ED Provider: Luis Burkett Dx/Rx/DC Orders Clinical Impression: Dyspnea, Abdominal pain Instructions: ED Constipation (Adult) Prescriptions: No Action Eliquis 2.5 mg tablet 2.5 mg PO BID Hold Instructions: Resume on 10/17/21. pravastatin 20 mg tablet 20 mg PO DAILY Jardiance 10 mg tablet 10 mg PO DAILY furosemide [Lasix] 20 mg tablet 20 mg PO BID aspirin 81 MG tablet,chewable 81 mg PO DAILY@0800 Patient Comments: heart health amlodipine 10 MG tablet 10 mg PO QHS Patient Comments: BLOOD PRESSURE/HEART losartan 50 mg tablet 50 mg PO BID Hold Instructions: Resume on 10/06/22. metoprolol succinate 25 mg tablet extended release 24 hr 25 mg PO QHS glimepiride 1 mg tablet 1 mg PO QHS Rx Instructions: 2 mg qam metoprolol succinate 100 mg Tablet Extended Release 24 Hr 100 mg PO DAILY potassium chloride [Klor-Con M20] 20 mEq Tablet,Er Particles/Crystals 20 meq PO BIDCM Qty: 60 0RF ferrous sulfate 325 mg (65 mg iron) tablet 325 mg PO BID Qty: 60 0RF furosemide 40 mg tablet 40 mg PO BID glipizide 5 mg tablet 5 mg PO DAILY clopidogrel 75 mg tablet 75 mg PO DAILY Patient Comments: TAKE 1 TABLET BY MOUTH ONCE DAILY amoxicillin 500 mg Capsule 500 mg PO Q12 5 Days Qty: 10 0RF Primary Care Provider: Ventura Baron Referrals: Ventura Baron DO [Primary Care Provider] - 5-7 Days Disposition Disposition: Home, Self Care
--- NOTE | 2023-06-16 10:54 | EKG12_ITS ---
Test Reason : SYNCOPE Blood Pressure : / mmHG Vent. Rate : 086 BPM Atrial Rate : 086 BPM P-R Int : 178 ms QRS Dur : 064 ms QT Int : 376 ms P-R-T Axes : 014 -31 064 degrees QTc Int : 449 ms Normal sinus rhythm Left axis deviation Abnormal ECG Present Confirmed by ELVA ARMENTA, NORM ([id number]), story editor VINCENZO RICK ([id number]) on 06/17/2023 1:57:38 PM Referred By: Confirmed By:NORM STEVENSON MD
[2023-06-16 10:58] VITALS: BP 131/61; PULSE 92; RESP 21; O2SAT 97
[2023-06-16 11:05] LABS: Absolute Lymphocyte Count 1.55 X10^3/uL (0.83-4.51); Absolute Neutrophil Count 6.8 X10^3/uL (2.0-7.7); Basophil# 0.03 X10^3/uL; Basophil% 0.3 % (0-1); Eosinophil# 0.07 X10^3/uL; Eosinophils% 0.8 % (0-5); Hematocrit 29.8 % (37-47); Lymphocyte # 1.55 X10^3/ul (0.83-4.51); Lymphocyte % 16.7 % (19-41); Mean Corp Hgb Conc 33.6 g/dL (32-36); Mean Corpuscular Hgb 30.8 pg (27.0-32.0); Mean Corpuscular Volume 91.7 fL (81-99); Mean Platelet Vol. 9.7 fl (6.2-12.0); Monocyte# 0.79 X10^3/uL; Monocyte% 8.5 % (0-10); NRBC Flagged by Analyzer 0 % (0-5); Neutrophil # 6.81 X10^3/uL (2.7-7.7); Neutrophil % 73.2 % (47-70); Platelet Count 305 K/mm3 (150-450); RBC Distribution Width CV 17.3 % (11.6-14.6); RBC Distribution Width SD 53.3 fl (35.1-43.9); Red Blood Count 3.25 M/mm3 (4.2-5.4); White Blood Count 9.3 K/mm3 (4.4-11.0)
--- NOTE | 2023-06-16 11:10 | RAD_ITS ---
STUDY: X-RAY CHEST REASON FOR EXAM: Female, 87 years old. Dyspnea TECHNIQUE: Single AP portable view of the chest. COMPARISON: Comparison is made with prior study dated October 19, 2022. FINDINGS: EKG electrodes are seen. Stable calcified granulomas in the lateral aspect of the right upper lobe. There is no demonstrated pleural abnormality. Status post prostatic aortic valve. Stable small mediastinal lymph nodes. Normal visualized pulmonary arteries. There is atherosclerotic calcification of the aortic arch with tortuosity. There are degenerative changes of the visualized thoracic spine. Normal visualized ribs, clavicles, and shoulders. There is no demonstrated abnormality of the visualized soft tissue structures of the upper abdomen. RAD/Chest 1 View (Portable) IMPRESSION: No acute abnormality is seen. Electronically Signed: Randolph Fallon MD at 12:40 EDT ,
[2023-06-16 11:19] LABS: Anion Gap 10 (5-15); BUN 69 mg/dL (7-18); BUN/Creat Ratio 30.3 RATIO (10-20); Calcium,Total 9.1 mg/dL (8.5-10.1); Chloride 104 mmol/L (98-107); Creatinine, Serum 2.28 mg/dL (0.55-1.02); EST Glomerular Filtration Rate 21 mL/min (>60); Est Glom Filt Rate - Afr Amer 26 mL/min (>60); Estimated Creatinine Clearance 12.87 ml/min; Glucose 222 mg/dL (74-106); Potassium 4.9 mmol/L (3.5-5.1); Sodium Level 134 mmol/L (136-145); Troponin-I HS 28 pg/mL (3.0-54.0)
[2023-06-16 11:47] LABS: Bacteria 0 SEEN /hpf (None Seen); Mucous, Urine 0 SEEN /hpf (<or=2+); Red Blood Cells-Urine 0 SEEN /hpf (0-5); Squamous Epithelial Cells - UA 0 SEEN /hpf (5-10); White Blood Cells 0 SEEN /hpf (0-5)
[2023-06-16 11:49] LABS: Color, Urine Yellow (Yellow); Glucose, Dipstick 100 mg/dl (Normal); Ketone-Dipstick Negative (Negative); Leukocyte Esterase-Dipstick Negative /ul (Negative); Nitrite-Dipstick Negative (Negative); Occult Blood-Urine Negative /ul (Negative); Protein-Dipstick 15 mg/dl (Negative); Urine Bilirubin Dipstick Negative (Negative); Urine Clarity Clear (Clear); Urine Urobilinogen Normal (Normal)
[2023-06-16 12:05] VITALS: BP 125/66; PULSE 94; RESP 23; O2SAT 97
[2023-06-16 15:45] VITALS: BP 134/78; PULSE 89; RESP 14; O2SAT 97
== END 2023-06-16 15:47 | disposition home or self-care (01) ==
PROVIDERS: Emergency Provider Emergency Medicine; PCP Family Medicine; Visit Provider Emergency Medicine
DX: R06.00 Dyspnea, unspecified (principal); I50.42 Chronic combined systolic (congestive) and diastolic (congestive) heart failure; E11.22 Type 2 diabetes mellitus with diabetic chronic kidney disease; I48.0 Paroxysmal atrial fibrillation; N18.30 Chronic kidney disease, stage 3 unspecified; I25.5 Ischemic cardiomyopathy; E78.5 Hyperlipidemia, unspecified; I25.10 Atherosclerotic heart disease of native coronary artery without angina pectoris; R10.9 Unspecified abdominal pain; Z79.82 Long term (current) use of aspirin; I25.2 Old myocardial infarction; Z95.2 Presence of prosthetic heart valve; Z87.440 Personal history of urinary (tract) infections
CPT/HCPCS: 71045; 80048; 81001; 84484; 85025; 93005; 99285

== ENCOUNTER 2023-06-19 20:15 | Emergency (ER) | payer MEDICARE, OTHER, SELFPAY ==
[2023-06-19 20:16] VITALS: BP 127/60; PULSE 82; RESP 20; TEMP 35.8; O2SAT 100; BMI 25.4
[2023-06-19 20:20] VITALS: O2SAT 100
--- NOTE | 2023-06-19 20:38 | EKG12_ITS ---
Test Reason : DYSRHYTHMIA Blood Pressure : / mmHG Vent. Rate : 078 BPM Atrial Rate : 078 BPM P-R Int : 166 ms QRS Dur : 064 ms QT Int : 386 ms P-R-T Axes : 027 -37 059 degrees QTc Int : 440 ms Sinus rhythm with marked sinus arrhythmia Left axis deviation Abnormal ECG Confirmed by DEYA ARMENTA, JANELLE ([id number]), industrial editor VINCENZO RICK ([id number]) on 06/29/2023 7:51:28 AM Referred By: Confirmed By:JATIN FALK MD
[2023-06-19 20:50] LABS: Absolute Lymphocyte Count 1.28 X10^3/uL (0.83-4.51); Absolute Neutrophil Count 4.7 X10^3/uL (2.0-7.7); Basophil# 0.02 X10^3/uL; Basophil% 0.3 % (0-1); Eosinophil# 0.21 X10^3/uL; Eosinophils% 2.9 % (0-5); Hematocrit 28.7 % (37-47); Hemoglobin 9.1 g/dL (12.0-15.0); Lymphocyte # 1.28 X10^3/ul (0.83-4.51); Lymphocyte % 17.9 % (19-41); Mean Corp Hgb Conc 31.7 g/dL (32-36); Mean Corpuscular Volume 94.7 fL (81-99); Mean Platelet Vol. 9.7 fl (6.2-12.0); Monocyte# 0.88 X10^3/uL; Monocyte% 12.3 % (0-10); NRBC Flagged by Analyzer 0.6 % (0-5); Neutrophil # 4.73 X10^3/uL (2.7-7.7); Neutrophil % 65.9 % (47-70); Platelet Count 361 K/mm3 (150-450); RBC Distribution Width CV 18.5 % (11.6-14.6); RBC Distribution Width SD 58.6 fl (35.1-43.9); Red Blood Count 3.03 M/mm3 (4.2-5.4); White Blood Count 7.2 K/mm3 (4.4-11.0)
--- NOTE | 2023-06-19 21:00 | RAD_ITS ---
EXAM: XR CHEST, 1 VIEW CLINICAL INDICATION: dyspnea TECHNIQUE: Frontal view of the chest. COMPARISON: 06/16/2023 FINDINGS: LUNGS AND PLEURAL SPACES: Multiple pulmonary granulomas. No pneumothorax. No effusion. HEART: No significant abnormality. Cardiac silhouette not enlarged. MEDIASTINUM: Mediastinal granulomas are present. BONES/JOINTS: No significant abnormality. SOFT TISSUES: No significant abnormality. VASCULATURE: Atherosclerosis. TUBES, LINES AND DEVICES: Transcatheter aortic valve replacement (TAVR). RAD/Chest 1 View (Portable) IMPRESSION: Similar appearance to the prior examination. No definite acute pathology in the chest. Electronically Signed: Too Francisco DO at 21:10 EDT ,
[2023-06-19 21:02] VITALS: O2SAT 100
[2023-06-19 21:02] LABS: POSITIVE COUNT NO; POSITIVE DIFFERENTIAL NO; POSITIVE MORPHOLOGY NO
[2023-06-19 21:07] LABS: Anion Gap 9 (5-15); BUN 82 mg/dL (7-18); BUN/Creat Ratio 28.8 RATIO (10-20); Calcium,Total 8.8 mg/dL (8.5-10.1); Chloride 106 mmol/L (98-107); Creatinine, Serum 2.85 mg/dL (0.55-1.02); EST Glomerular Filtration Rate 17 mL/min (>60); Est Glom Filt Rate - Afr Amer 20 mL/min (>60); Glucose 148 mg/dL (74-106); Potassium 5.3 mmol/L (3.5-5.1); Sodium Level 137 mmol/L (136-145); Troponin-I HS 15 pg/mL (3.0-54.0)
[2023-06-19 21:09] LABS: BNP,B-Type NATRIURETIC PEPTIDE 197.9 pg/mL (0-100)
[2023-06-19 21:34] VITALS: O2SAT 96
[2023-06-19 22:00] VITALS: RESP 16
--- NOTE | 2023-06-19 22:27 | ED.VIS.DYS ---
HPI History of Present Illness Chief Complaint: Shortness of Breath Informant: patient, family and EMS Narrative Narrative: 87-year-old female brought to the emergency department with dyspnea. Patient reportedly was fine during the day and family came over to see her. They walked her to the kitchen to get her an orange and she began to breathe fast. They are unable to get her pulse ox to read and EMS was called. Patient states she is feeling fine upon arrival here in the department. She has a history of CHF and chronic kidney disease. The patient has had episodes of paroxysmal atrial fibrillation and aortic valve replacement in the past. She denies any increased weight or leg swelling. No cough or fever. Family states she was in the emergency department couple days ago after an episode of hyperventilation. She was having constipation. She followed up with primary care and she has been taking MiraLAX. Family notes that the patient's in April. They have been taking turns coming and see her very frequently during the day and they also have home PT and other caregivers coming in. They are unsure of how to help the patient as she seems to be doing all of her daily activities including driving until recently. Due to macular degeneration she is not driving anymore. They do not know if this is behavioral or if there is something more to it. 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/17) Hyperlipidemia Hypertension associated with diabetes Hypoxia Ischemic cardiomyopathy Mitral annular calcification Nonrheumatic aortic (valve) stenosis Nonrheumatic mitral (valve) insufficiency Normocytic anemia Paroxysmal atrial fibrillation Renal artery stenosis Home Medications aspirin 81 mg chewable tablet 81 mg PO DAILY@0800 BLOOD THINNER 04/21/17 [History Last Taken 06/18/22] amlodipine 10 mg tablet 10 mg PO QHS BP 04/28/17 [History Last Taken 06/18/22] apixaban 2.5 mg tablet (Eliquis) 2.5 mg PO BID BLOOD THINNER 09/07/19 [History Last Taken 06/18/22] losartan 50 mg tablet 50 mg PO BID BP 06/19/22 [History Last Taken 06/18/22] metoprolol succinate 25 mg tablet,extended release 24 hr 25 mg PO QHS blood pressure 06/19/22 [History Last Taken 06/18/22] metoprolol succinate 100 mg tablet,extended release 24 hr 100 mg PO DAILY blood pressure 07/30/22 [History Last Taken Unknown] ferrous sulfate 325 mg (65 mg iron) tablet 325 mg PO BID supplement #60 tabs 10/19/22 [Rx Last Taken Unknown] potassium chloride 20 mEq tablet,extended release(part/cryst) (Klor-Con M) 20 meq PO BIDCM supplement #60 tabs 10/19/22 [Rx Last Taken Unknown] empagliflozin 10 mg tablet (Jardiance) 10 mg PO DAILY diabetes 02/09/23 [History Last Taken Unknown] clopidogrel 75 mg tablet 75 mg PO DAILY anti platelet 06/04/23 [History Last Taken Unknown] furosemide 40 mg tablet 40 mg PO BID diuretic 06/04/23 [History Last Taken Unknown] glipizide 5 mg tablet 5 mg PO DAILY diabetes 06/04/23 [History Last Taken Unknown] atorvastatin 10 mg tablet 10 mg PO DAILY 06/19/23 [History Last Taken Unknown] insulin glargine 100 unit/mL (3 mL) subcutaneous pen (Lantus Solostar U-100 Insulin) 15 unit subcut DAILY 06/19/23 [History Last Taken Unknown] polyethylene glycol 3350 17 gram/dose oral powder (ClearLax) 17 g PO DAILY 06/19/23 [History Last Taken Unknown] Allergy/AdvReac Type Severity Reaction Status Date / Time No Known Allergies Allergy Verified 06/16/23 10:09 Family History Sister Asthma Breast cancer Hypertension Hyperlipidemia Melanoma Father , From old age per patient. Denies specific medical problems. No problems noted. Mother , From old age per patient. Denies specific medical problems. No problems noted. Surgical History History of appendectomy History of coronary angioplasty (09/18/21) History of left heart catheterization (04/2017) History of percutaneous transluminal coronary angioplasty (~09/18/21) S/P TAVR (transcatheter aortic valve replacement) Social History household members: none Smoking Status: Never smoker alcohol intake: never substance use type: does not use caffeine: Yes Type: coffee Number of servings: 1 ROS ROS ED Constitutional Constitutional ED: Denies chills or weight loss Eyes Eyes: Denies change in vision or diplopia ENT ENT ED: Denies ear pain, rhinorrhea or sore throat Cardiovascular Cardiovascular: Denies chest pain, orthopnea, palpitations or racing heartbeat Respiratory/Chest Respiratory/Chest: Reports dyspnea and dyspnea on exertion; Denies cough or orthopnea Gastrointestinal Gastrointestinal: Reports constipation; Denies abdominal pain, diarrhea, nausea or vomiting Genitourinary Genitourinary ED: Denies dysuria, hematuria or urinary frequency Musculoskeletal Musculoskeletal: Denies arthralgias or myalgias Integumentary Denies abscess or rash Neurologic Neurologic: Denies headache(s) or weakness Psychiatric Psychiatric: Denies anxiety, depression, suicidal ideation or suicidal thoughts Endocrine Endocrinology: Denies polydipsia, polyphagia or polyuria Allergic/Immunologic Allergic/Immunologic ED: Denies mouth swelling, tongue swelling or urticaria EXAM Physical Exam Const Vital Signs: 06/19/23 20:16 06/19/23 20:20 06/19/23 21:02 Temperature 96.4 F L Temperature Source Temporal Pulse Rate 82 Respiratory Rate 20 H Respiratory Effort Normal Non-Labored Respiratory Depth Normal Respiratory Pattern Normal Blood Pressure 127/60 H Blood Pressure Mean 82 Pulse Ox 100 100 Oxygen Delivery Method Nasal Cannula Nasal Cannula Room Air Oxygen Flow Rate (L/min) 2 2 06/19/23 22:00 Temperature Temperature Source Pulse Rate Respiratory Rate 16 Respiratory Effort Respiratory Depth Respiratory Pattern Blood Pressure Blood Pressure Mean Pulse Ox Oxygen Delivery Method Oxygen Flow Rate (L/min) Positive well nourished and well developed General Appearance ED: well developed HEENT Reports normocephalic, head/scalp atraumatic and moist mucous membranes Eyes PERRL and EOMs intact bilaterally Neck no lymphadenopathy, supple and no JVD Resp normal respiratory effort and clear to auscultation bilaterally Cardio regular rate, regular rhythm and no murmurs GI normal to inspection, nondistended, normoactive bowel sounds and non-tender Palpation: soft Back/Spine no CVA tenderness and normal ROM Extremity normal to inspection General Extremety ED: Negative for edema General Extremity: Negative for edema Neuro oriented x3 and CN's II-XII intact bilaterally Sensorium / Orientation: alert Motor Exam: strength 5/5 throughout Psych mental status grossly normal Mood & Affect: Negative for depressed or tearful Skin no rashes or lesions noted and no wounds MDM MDM MDM Narrative Medical decision making narrative: My independent interpretation of the plain film of the chest x-ray is no acute process. Troponin is normal. Natruretic peptide 197. Hemoglobin 9.1 white count 7.2. Creatinine 2.85 with a BUN of 82. Patient is not requiring any supplemental oxygen. She is able to ambulate down the hallway with her walker very briskly and without dyspnea. At this point do not see an indication for admission. Would recommend following up with primary care next week. She with her creatinine up from just a couple days ago encouraged her to drink some fluids should have this rechecked. History & Record Review Discussion w/independent historian: EMS personnel, Patient and Family Lab Data Attestation: I reviewed the patient's lab results. Labs: Laboratory Results - last 24 hr 06/19/23 20:25 WBC 7.2 RBC 3.03 L Hgb 9.1 L Hct 28.7 L MCV 94.7 MCH 30.0 MCHC 31.7 L D RDW Std Deviation 58.6 H RDW Coeff of Jesi 18.5 H Plt Count 361 MPV 9.7 Immature Gran % (Auto) 0.700 Neut % (Auto) 65.9 Lymph % (Auto) 17.9 L [place] % (Auto) 12.3 H Eos % (Auto) 2.9 Baso % (Auto) 0.3 Absolute Neuts (auto) 4.7 Absolute Lymphs (auto) 1.28 Nucleated RBC % 0.6 Sodium 137 Potassium 5.3 H Chloride 106 Carbon Dioxide 22.0 Anion Gap 9 BUN 82 H Creatinine 2.85 H Estim Creat Clear Calc 10.30 Est GFR (MDRD) Af Amer 20 L Est GFR (MDRD) Non-Af 17 L BUN/Creatinine Ratio 28.8 H Glucose 148 H Calcium 8.8 Troponin I High Sens 15 B-Natriuretic Peptide 197.9 H Radiography Diagnostic Testing: Clinical Impression(s) from Imaging Studies Chest X-Ray 06/19/23 21:00 IMPRESSION: Similar appearance to the prior examination. No definite acute pathology in the chest. Electronically Signed: Too VWerner Francisco DO at 21:10 EDT , EKG Initial EKG: Attestation: I personally reviewed and interpreted this EKG as follows: Comments: Sinus rhythm with ventricular rate of 78 bpm no definitive features of ACS noted. Prior: Unchanged Differential Diagnosis Chest pain/SOB: pulmonary embolism, ACS, pneumothorax, pneumonia, aortic dissection, CHF and COPD Discharge Plan Triage Chief Complaint: Shortness of Breath ED Provider: Prem Herrera Dx/Rx/DC Orders Clinical Impression: Acute dyspnea, Chronic combined systolic and diastolic CHF (congestive heart failure) Instructions: ED Dyspnea Prescriptions: No Action Eliquis 2.5 mg tablet 2.5 mg PO BID Hold Instructions: Resume on 10/17/21. Jardiance 10 mg tablet 10 mg PO DAILY aspirin 81 MG tablet,chewable 81 mg PO DAILY@0800 Patient Comments: heart health amlodipine 10 MG tablet 10 mg PO QHS Patient Comments: BLOOD PRESSURE/HEART losartan 50 mg tablet 50 mg PO BID Hold Instructions: Resume on 10/06/22. metoprolol succinate 25 mg tablet extended release 24 hr 25 mg PO QHS metoprolol succinate 100 mg Tablet Extended Release 24 Hr 100 mg PO DAILY potassium chloride [Klor-Con M20] 20 mEq Tablet,Er Particles/Crystals 20 meq PO BIDCM Qty: 60 0RF ferrous sulfate 325 mg (65 mg iron) tablet 325 mg PO BID Qty: 60 0RF furosemide 40 mg tablet 40 mg PO BID glipizide 5 mg tablet 5 mg PO DAILY clopidogrel 75 mg tablet 75 mg PO DAILY Patient Comments: TAKE 1 TABLET BY MOUTH ONCE DAILY atorvastatin 10 mg tablet 10 mg PO DAILY insulin glargine [Lantus Solostar U-100 Insulin] 100 unit/mL (3 mL) insulin pen 15 unit SUBCUT DAILY polyethylene glycol 3350 [ClearLax] 17 gram/dose powder 17 g PO DAILY Primary Care Provider: Ventura Baron Referrals: Ventura Baron, [Primary Care Provider] - 1 Week Activity Restrictions/Additional Instructions: Be sure to drink plenty of fluids to stay hydrated. You need to try to keep your urine a light yellow. Please follow-up with your doctor next week. It is important that they recheck your kidney function. Disposition Disposition: Home, Self Care Discharge Date/Time: 06/19/23 22:48
== END 2023-06-19 22:48 | disposition home or self-care (01) ==
PROVIDERS: Emergency Provider Emergency Medicine; PCP Family Medicine; Visit Provider Emergency Medicine
DX: R06.00 Dyspnea, unspecified (principal); I50.42 Chronic combined systolic (congestive) and diastolic (congestive) heart failure; I13.0 Hypertensive heart and chronic kidney disease with heart failure and stage 1 through stage 4 chronic kidney disease, or unspecified chronic kidney disease; E11.22 Type 2 diabetes mellitus with diabetic chronic kidney disease; I48.0 Paroxysmal atrial fibrillation; Z79.4 Long term (current) use of insulin; N18.30 Chronic kidney disease, stage 3 unspecified; I25.10 Atherosclerotic heart disease of native coronary artery without angina pectoris; E78.5 Hyperlipidemia, unspecified; Z95.2 Presence of prosthetic heart valve; I25.2 Old myocardial infarction; Z79.82 Long term (current) use of aspirin; Z79.899 Other long term (current) drug therapy; Z79.01 Long term (current) use of anticoagulants; I15.2 Hypertension secondary to endocrine disorders; Z79.02 Long term (current) use of antithrombotics/antiplatelets; Z90.49 Acquired absence of other specified parts of digestive tract; Z98.61 Coronary angioplasty status
CPT/HCPCS: 71045; 80048; 83880; 84484; 85025; 93005; 99285

== ENCOUNTER 2023-06-25 14:01 | Inpatient (IN) | payer MEDICARE, OTHER, SELFPAY ==
[2023-06-25 14:03] VITALS: BP 100/48; PULSE 78; RESP 14; TEMP 36.6; O2SAT 98
--- NOTE | 2023-06-25 14:18 | CM.ED ---
Social Work SW received call from SW which reported patient being brought to ED by family. Pt and family requesting placement. Pt has history of falls and weakness and family has been caring for pt in addition to HH nurse, PT, OT and SW services. On arrival patient requested in triage note to be placed in AL in [place]. Pt reportedly has MCR A&B and does appear to have had a 3-day stay within the last 30 days and could possibly be used for SNF placement. SW will review case with ED physician and patient/family. Sheri Joesph CARDROOM ATTENDANT, REGISTERED NURSE AMBULATORY
--- NOTE | 2023-06-25 14:44 | EKG12_ITS ---
Test Reason : Blood Pressure : / mmHG Vent. Rate : 077 BPM Atrial Rate : 077 BPM P-R Int : 176 ms QRS Dur : 080 ms QT Int : 408 ms P-R-T Axes : 030 -15 065 degrees QTc Int : 461 ms Normal sinus rhythm Normal ECG Confirmed by DEYA ARMENTA, JANELLE ([id number]), news videotape editor VINCENZO RICK ([id number]) on 06/29/2023 8:18:01 AM Referred By: Confirmed By:JATIN FALK MD
--- NOTE | 2023-06-25 15:35 | EX.ED.DYSGE1 ---
HPI History of Present Illness Chief Complaint: Weakness Informant: patient and family Narrative Narrative: Patient is an 87-year-old female history of insulin-dependent diabetes mellitus, long-term anticoagulation on Eliquis, CKD 3, diastolic heart failure and paroxysmal atrial fibrillation presenting for worsening generalized weakness and concern for need for placement. Patient had a recent admission for fall and was discharged with home health, PT and OT. Family notes that over the past week and a half she is no longer participating anything, cannot take care of her of her activity of daily living including feeding herself or using the restroom and is getting more weak. No new falls. She has had a diarrhea and is not really eating. Denies any blood in her stool. Attributes the diarrhea to treating constipation with MiraLAX and now it is overtreated. They states she has had 2-3 episodes of bowel incontinence today. Patient states that she feels short of breath sometimes when she does not eat. Her 2 months ago and she now lives alone. Family is looking into getting her in long-term care at [facility] in [place] where she has siblings but they state is at the point that they cannot take care of her at home anymore and she needs [id number] health. Patient currently denies any complaints. Note since her discharge her PCP did decrease her Lasix because of an uptick in her what sounds like her creatinine/GFR. Patient was admitted on 06/04 through 06/09 for UTI and weakness associate with fall. [facility] Medical History Aortic sclerosis Atherosclerosis of coronary artery of [place] heart without angina pectoris Bilateral carotid artery stenosis Chronic combined systolic and diastolic CHF (congestive heart failure) Chronic kidney disease (CKD) Chronic kidney disease, stage 3 Chronic venous insufficiency Diabetes mellitus Diastolic CHF History of chronic CHF History of non-ST elevation myocardial infarction (NSTEMI) (09/17/21) History of renal insufficiency History of transcatheter aortic valve replacement (TAVR) (05/18/17) Hyperlipidemia Hypertension associated with diabetes Hypoxia Ischemic cardiomyopathy Mitral annular calcification Nonrheumatic aortic (valve) stenosis Nonrheumatic mitral (valve) insufficiency Normocytic anemia Paroxysmal atrial fibrillation Renal artery stenosis Home Medications aspirin 81 mg chewable tablet 81 mg PO DAILY@0800 BLOOD THINNER 04/21/17 [History Last Taken 06/18/22] amlodipine 10 mg tablet 10 mg PO DAILY BP 04/28/17 [History Last Taken 06/18/22] apixaban 2.5 mg tablet (Eliquis) 2.5 mg PO BID BLOOD THINNER 09/07/19 [History Last Taken 06/18/22] losartan 50 mg tablet 50 mg PO BID BP 06/19/22 [History Last Taken 06/18/22] metoprolol succinate 25 mg tablet,extended release 24 hr 25 mg PO QHS blood pressure 06/19/22 [History Last Taken 06/18/22] metoprolol succinate 100 mg tablet,extended release 24 hr 100 mg PO DAILY blood pressure 07/30/22 [History Last Taken Unknown] ferrous sulfate 325 mg (65 mg iron) tablet 325 mg PO BID supplement #60 tabs 10/19/22 [Rx Last Taken Unknown] potassium chloride 20 mEq tablet,extended release(part/cryst) (Klor-Con M) 20 meq PO BIDCM supplement #60 tabs 10/19/22 [Rx Last Taken Unknown] empagliflozin 10 mg tablet (Jardiance) 10 mg PO DAILY diabetes 02/09/23 [History Last Taken Unknown] clopidogrel 75 mg tablet 75 mg PO DAILY anti platelet 06/04/23 [History Last Taken Unknown] furosemide 40 mg tablet 40 mg PO BID diuretic 06/04/23 [History Last Taken Unknown] glipizide 5 mg tablet 5 mg PO DAILY diabetes 06/04/23 [History Last Taken Unknown] atorvastatin 10 mg tablet 10 mg PO DAILY cholestrol 06/19/23 [History Last Taken Unknown] insulin glargine 100 unit/mL (3 mL) subcutaneous pen (Lantus Solostar U-100 Insulin) 15 unit subcut DAILY diabetes 06/19/23 [History Last Taken Unknown] polyethylene glycol 3350 17 gram/dose oral powder (ClearLax) 17 g PO DAILY PRN bowels 06/19/23 [History Last Taken Unknown] leg cramps PO QHS leg cramps 06/25/23 [History Last Taken Unknown] Allergy/AdvReac Type Severity Reaction Status Date / Time No Known Allergies Allergy Verified 06/25/23 14:03 Family History Sister Asthma Breast cancer Hypertension Hyperlipidemia Melanoma Father , From old age per patient. Denies specific medical problems. No problems noted. Mother , From old age per patient. Denies specific medical problems. No problems noted. Surgical History History of appendectomy History of coronary angioplasty (09/18/21) History of left heart catheterization (04/2017) History of percutaneous transluminal coronary angioplasty (~09/18/21) S/P TAVR (transcatheter aortic valve replacement) Social History household members: none Smoking Status: Never smoker alcohol intake: never substance use type: does not use caffeine: Yes Type: coffee Number of servings: 1 ROS ROS ED Constitutional Constitutional ED: Denies chills or fever(s) Eyes Eyes: Denies change in vision Cardiovascular Cardiovascular: Denies chest pain Respiratory/Chest Respiratory/Chest: Reports dyspnea; Denies cough Gastrointestinal Gastrointestinal: Reports diarrhea; Denies abdominal pain, nausea or vomiting Genitourinary Genitourinary ED: Denies dysuria Musculoskeletal Musculoskeletal: Denies arthralgias or myalgias Integumentary Reports other Details: healing bruising on face and right lower leg Neurologic Neurologic: Reports weakness; Denies headache(s) or paresthesias Hematologic/Lymphatic Hematologic/Lymphatic: Reports easy bleeding and easy bruising EXAM Physical Exam Const Vital Signs: 06/25/23 14:03 06/25/23 14:05 06/25/23 16:02 Temperature 97.8 F Temperature Source Temporal Pulse Rate 78 Respiratory Rate 14 16 Respiratory Effort Normal Non-Labored Respiratory Pattern Normal Blood Pressure 100/48 L Blood Pressure Mean 65 Pulse Ox 98 Oxygen Delivery Method Room Air Positive well nourished and well developed Constitutional Narrative: No acute distress, generally weak appearing General Appearance ED: well developed and pallor HEENT HEENT Narrative: Slightly dry mucosal membranes Eyes PERRL and EOMs intact bilaterally Neck supple and no JVD Chest Wall inspection of chest normal Resp normal respiratory effort and clear to auscultation bilaterally Cardio regular rate and regular rhythm; Negative for no murmurs GI normal to inspection, nondistended, normoactive bowel sounds and non-tender GI Narrative: Black melanotic stool present Back/Spine Cervical Spine: Negative for cervical spine tenderness Thoracic Spine / Upper Back: Negative for thoracic spinal tenderness Lumbar Spine / Lower Back: Negative for lumbar spinal tenderness Extremity normal to inspection General Extremety ED: Negative for edema or tenderness General Extremity: Negative for edema Neuro oriented x3 Sensorium / Orientation: alert Motor Exam: general weakness Psych mental status grossly normal Skin Skin Narrative: Ecchymosis in various stages of healing of the face as well as the right lower extremity General Skin Exam: pallor MDM MDM MDM Narrative Medical decision making narrative: Evaluate for generalized weakness and need for placement. She unable to do the basic ADLs such as getting herself to the bathroom or to feed herself. Family is looking into placement at [facility] in [place] but understand she might need to go somewhere else first until they have a bed availability. They have contacted them but not heard back. Patient does confirm that she is a full code. Given her acute decline over the past week and a half will look for signs of electrolyte abnormality, infection or other metabolic causes of this increased weakness that could be corrected. Is given IV fluids in the ER she does appear mildly dehydrated. Patient is found to have melena on physical exam. She is on Eliquis. Hemoglobin is downtrending and now 8.3. She is given IV fluids and her blood pressure does improve. She has worsening CKD and an uptrending BUN. Patient is started on Protonix. Case is discussed with GI given melena and anticoagulation. He recommends starting octreotide, Protonix drip and Rocephin for concern of possible undiagnosed cirrhosis of the liver/varices that could be bleeding. Patient is admitted to the medicine service. Family is agreeable with this. I have a low suspicion for C. difficile and suspect the diarrhea is actually related to this GI bleed as blood is cathartic. Urinalysis shows 0-5 white blood cells but no bacteria. Urine culture sent. She does have a mild leukocytosis of 12.8 which could be reactive from the GI bleed versus UTI. Patient does not have any abdominal pain and has significant decrease in her GFR so I do not think a CT of the abdomen pelvis is indicated. I suspect her shortness of breath is more related to symptomatic anemia. Lab Data Attestation: I reviewed the patient's lab results. Labs: Laboratory Results - last 24 hr 06/25/23 06/25/23 06/25/23 15:30 15:55 16:26 WBC 12.8 H RBC 2.68 L Hgb 8.3 L Hct 26.8 L MCV 100.0 H MCH 31.0 MCHC 31.0 L RDW Std Deviation 74.6 H RDW Coeff of Jesi 21.6 H Plt Count 371 MPV 9.4 Immature Gran % (Auto) 0.600 Neut % (Auto) 88.4 H Lymph % (Auto) 5.3 L [place] % (Auto) 5.3 Eos % (Auto) 0.2 Baso % (Auto) 0.2 Absolute Neuts (auto) 11.3 H Absolute Lymphs (auto) 0.68 L Nucleated RBC % 0.2 Platelet Estimate ADEQUATE RBC Morphology N CHROM Hypochromasia RARE Anisocytosis 1+ Macrocytosis 1+ Sodium 131 L Potassium 5.7 H Chloride 104 Carbon Dioxide 17.0 L Anion Gap 10 BUN 95 H Creatinine 3.66 H Est GFR (MDRD) Af Amer 15 L Est GFR (MDRD) Non-Af 12 L BUN/Creatinine Ratio 26.0 H Glucose 292 H Lactic Acid 1.5 Calcium 8.6 Total Bilirubin 0.80 AST 12 L ALT 13 Alkaline Phosphatase 88 Total Protein 6.7 Albumin 2.8 L Globulin 3.9 Albumin/Globulin Ratio 0.7 L Urine Color Yellow Urine Clarity Clear Urine pH 5.0 Ur Specific [place] 1.010 Urine Protein 15 H Urine Glucose (UA) 1000 H Urine Ketones 5 H Urine Occult Blood 10 H Urine Nitrite Negative Urine Bilirubin Negative Urine Urobilinogen Normal Ur Leukocyte Esterase 500 H Urine RBC 0 SEEN Urine WBC 0-5 SEEN Ur Squamous Epith Cells 0 SEEN Urine Bacteria 0 SEEN Hyaline Casts 0-5 SEEN Urine Mucus 0 SEEN Blood Type O POSITIVE Antibody Screen NEGATIVE Radiography Chest X-Ray - ED: 1 View, Read by ED Physician, Read by Radiologist and No Acute Disease Diagnostic Testing: Clinical Impression(s) from Imaging Studies Chest X-Ray 06/25/23 16:00 IMPRESSION: Pulmonary granulomas and hilar granulomatous calcifications.. Electronically Signed: Alfie Kasper DO at 16:15 EST Reading Location ID and State: [facility] / [place] Tel [phone], Service support , Rhythm Strip Rhythm Strip: Sinus Rhythm Rate: 77 Ectopy: None EKG Initial EKG: Attestation: I personally reviewed and interpreted this EKG as follows: Interpretation: Sinus Rhythm Comments: Sinus rhythm at a rate of 77 bpm Normal axis Normal intervals Normal ST segments Differential Diagnosis Abdominal Pain: UTI Reason(s) UTI less likely: no evidence of infection on urinalysis (Bacteria, only mildly elevated white blood cells) Management Discussion w/another healthcare provider: Hospitalist and Tariff Compiler Discharge Plan Dx/Rx/DC Orders Clinical Impression: GI bleed, ANALISA (acute kidney injury), Kidney disease, chronic, stage IV (GFR 15-29 ml/min), Acute hypotension, UTI (urinary tract infection), Generalized weakness, Current use of detention anticoagulation Disposition Disposition: Acute Care Hospital [facility] Discharge Date/Time: 06/25/23 18:54
[2023-06-25 15:36] LABS: Absolute Lymphocyte Count 0.68 X10^3/uL (0.83-4.51); Absolute Neutrophil Count 11.3 X10^3/uL (2.0-7.7); Basophil# 0.02 X10^3/uL; Basophil% 0.2 % (0-1); Eosinophil# 0.02 X10^3/uL; Eosinophils% 0.2 % (0-5); Hematocrit 26.8 % (37-47); Hemoglobin 8.3 g/dL (12.0-15.0); Lymphocyte # 0.68 X10^3/ul (0.83-4.51); Lymphocyte % 5.3 % (19-41); Mean Platelet Vol. 9.4 fl (6.2-12.0); Monocyte# 0.67 X10^3/uL; Monocyte% 5.3 % (0-10); NRBC Flagged by Analyzer 0.2 % (0-5); Neutrophil # 11.28 X10^3/uL (2.7-7.7); Neutrophil % 88.4 % (47-70); POSITIVE MORPHOLOGY YES; Platelet Count 371 K/mm3 (150-450); RBC Distribution Width CV 21.6 % (11.6-14.6); RBC Distribution Width SD 74.6 fl (35.1-43.9); Red Blood Count 2.68 M/mm3 (4.2-5.4); White Blood Count 12.8 K/mm3 (4.4-11.0)
[2023-06-25 15:42] LABS: Differential Indicated SCAN CRITERIA MET
[2023-06-25 15:56] LABS: ALB/GLOB Ratio 0.7 RATIO (0.9-2.4); AST(SGOT) 12 U/L (15-37); Alanine Aminotransfer ALT/SGPT 13 U/L (13-56); Albumin, Serum 2.8 g/dL (3.2-5.0); Alkaline Phosphatase 88 U/L (45-117); Anion Gap 10 (5-15); BUN 95 mg/dL (7-18); Calcium,Total 8.6 mg/dL (8.5-10.1); Chloride 104 mmol/L (98-107); Creatinine, Serum 3.66 mg/dL (0.55-1.02); EST Glomerular Filtration Rate 12 mL/min (>60); Est Glom Filt Rate - Afr Amer 15 mL/min (>60); Globulin 3.9 g/dL (2.2-4.2); Glucose 292 mg/dL (74-106); Potassium 5.7 mmol/L (3.5-5.1); Protein, Total 6.7 g/dL (6.4-8.2); Sodium Level 131 mmol/L (136-145)
[2023-06-25 16:00] LABS: Bacteria 0 SEEN /hpf (None Seen); Mucous, Urine 0 SEEN /hpf (<or=2+); Red Blood Cells-Urine 0 SEEN /hpf (0-5); Squamous Epithelial Cells - UA 0 SEEN /hpf (5-10)
--- NOTE | 2023-06-25 16:00 | RAD_ITS ---
INDICATION: wekaness EXAMINATION/TECHNIQUE: X-RAY - XR Chest 1 View COMPARISON: June 19, 2023 FINDINGS: LINES/DEVICES: None. LUNGS: No consolidation, edema or effusion. Bilateral pulmonary granulomas. No pneumothorax. MEDIASTINUM AND CARDIOVASCULAR STRUCTURES: Cardiac silhouette not enlarged. There is a valvular stent noted over the cardiac shadow. Calcified aortic arch. Bilateral hilar granulomatous calcifications. BONES AND SOFT TISSUES: Unremarkable. RAD/Chest 1 View (Portable) IMPRESSION: Pulmonary granulomas and hilar granulomatous calcifications.. Electronically Signed: Alfie Kasper DO at 16:15 EST Reading Location ID and State: [facility] / [place] Tel [phone], Service support ,
[2023-06-25 16:01] LABS: Anisocytosis 1+; Hypochromasia RARE; Macrocytosis 1+; Platelet Estimate ADEQUATE (ADEQ); Red Cell Morphology N CHROM NORMAL (NORM C&C)
[2023-06-25 16:02] VITALS: RESP 16
[2023-06-25 16:07] LABS: Color, Urine Yellow (Yellow); Glucose, Dipstick 1000 mg/dl (Normal); Ketone-Dipstick 5 mg/dl (Negative); Leukocyte Esterase-Dipstick 500 /ul (Negative); Nitrite-Dipstick Negative (Negative); Occult Blood-Urine 10 /ul (Negative); Protein-Dipstick 15 mg/dl (Negative); Urine Bilirubin Dipstick Negative (Negative); Urine Clarity Clear (Clear); Urine Urobilinogen Normal (Normal)
[2023-06-25 16:16] LABS: Lactic Acid 1.5 mmol/L (0.4-1.9)
[2023-06-25 16:19] LABS: Hyaline Cast 0-5 SEEN /lpf (0-5); White Blood Cells 0-5 SEEN /hpf (0-5)
[2023-06-25] MEDS: Pantoprazole Sodium 80 MG in 0.9% Normal Saline (50mL Bag) 15 ML 420 MG IV BOLUS (16:24)
[2023-06-25] MEDS: 0.9% Normal Saline (500mL Bag) 500 ML 999 ML IV (16:31)
[2023-06-25] MEDS: Octreotide 0.5 MG in Dextrose 5%-Water (250mL Bag) 250 ML 12.5 MG CONT INF (16:57)
[2023-06-25] MEDS: Pantoprazole Sodium 80 MG in 0.9% Normal Saline (100mL Bag) 80 ML 10 MG CONT INF (17:12)
[2023-06-25] MEDS: Ceftriaxone 1 GM/50 ML BAG IV (17:14)
[2023-06-25 18:00] VITALS: BP 103/46; PULSE 75; RESP 16; O2SAT 99
--- NOTE | 2023-06-25 18:18 | PCM.HP.STD ---
HPI - General General Date of Admission: 06/25/23 HPI Narrative PHUC AIKEN, is a 87 F who presents to the hospital with weakness and melena. She says that she started noticing her stools getting dark about a week ago which is also when she started noticing herself getting a little bit weaker. She presented today secondary to significant debility and thinking that she would likely need placement in a care home however she was found to have a two-point drop in her hemoglobin with continued melena. Her BUN was elevated and she has not been eating or drinking very well and her creatinine is also elevated from baseline of around 2.5 she is still CKD 4 that does not appear to be an ANALISA at this time. UA is unremarkable but gastroenterology was contacted and recommended octreotide drip as well as a Protonix drip. Her facial ecchymosis are improving from her previous admission when she had a mechanical fall. She is also noticed some diarrhea and given the melena C. difficile test was sent. 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) Hyperlipidemia Hypertension associated with diabetes Hypoxia Ischemic cardiomyopathy Mitral annular calcification Nonrheumatic aortic (valve) stenosis Nonrheumatic mitral (valve) insufficiency Normocytic anemia Paroxysmal atrial fibrillation Renal artery stenosis Home Medications aspirin 81 mg chewable tablet 81 mg PO DAILY@0800 BLOOD THINNER 04/21/17 [History Last Taken 06/18/22] amlodipine 10 mg tablet 10 mg PO DAILY BP 04/28/17 [History Last Taken 06/18/22] apixaban 2.5 mg tablet (Eliquis) 2.5 mg PO BID BLOOD THINNER 09/07/19 [History Last Taken 06/18/22] losartan 50 mg tablet 50 mg PO BID BP 06/19/22 [History Last Taken 06/18/22] metoprolol succinate 25 mg tablet,extended release 24 hr 25 mg PO QHS blood pressure 06/19/22 [History Last Taken 06/18/22] metoprolol succinate 100 mg tablet,extended release 24 hr 100 mg PO DAILY blood pressure 07/30/22 [History Last Taken Unknown] ferrous sulfate 325 mg (65 mg iron) tablet 325 mg PO BID supplement #60 tabs 10/19/22 [Rx Last Taken Unknown] potassium chloride 20 mEq tablet,extended release(part/cryst) (Klor-Con M) 20 meq PO BIDCM supplement #60 tabs 10/19/22 [Rx Last Taken Unknown] empagliflozin 10 mg tablet (Jardiance) 10 mg PO DAILY diabetes 02/09/23 [History Last Taken Unknown] clopidogrel 75 mg tablet 75 mg PO DAILY anti platelet 06/04/23 [History Last Taken Unknown] furosemide 40 mg tablet 40 mg PO BID diuretic 06/04/23 [History Last Taken Unknown] glipizide 5 mg tablet 5 mg PO DAILY diabetes 06/04/23 [History Last Taken Unknown] atorvastatin 10 mg tablet 10 mg PO DAILY cholestrol 06/19/23 [History Last Taken Unknown] insulin glargine 100 unit/mL (3 mL) subcutaneous pen (Lantus Solostar U-100 Insulin) 15 unit subcut DAILY diabetes 06/19/23 [History Last Taken Unknown] polyethylene glycol 3350 17 gram/dose oral powder (ClearLax) 17 g PO DAILY PRN bowels 06/19/23 [History Last Taken Unknown] leg cramps PO QHS leg cramps 06/25/23 [History Last Taken Unknown] Allergy/AdvReac Type Severity Reaction Status Date / Time No Known Allergies Allergy Verified 06/25/23 14:03 Family History Sister Asthma Breast cancer Hypertension Hyperlipidemia Melanoma Father , From old age per patient. Denies specific medical problems. No problems noted. Mother , From old age per patient. Denies specific medical problems. No problems noted. Surgical History History of appendectomy History of coronary angioplasty (09/18/21) History of left heart catheterization (04/2017) History of percutaneous transluminal coronary angioplasty (~09/18/21) S/P TAVR (transcatheter aortic valve replacement) Social History household members: none Smoking Status: Never smoker alcohol intake: never substance use type: does not use caffeine: Yes Type: coffee Number of servings: 1 ROS Constitutional Constitutional: Reports fatigue, malaise and weakness; Denies chills or fever(s) Eyes Eyes: Denies blurry vision ENT HEENT: Denies headache(s) or nasal discharge Cardiovascular Cardiovascular: Denies chest pain, dyspnea on exertion or syncope Respiratory/Chest Respiratory/Chest: Denies cough, shortness of breath at rest or shortness of breath with exertion Gastrointestinal Gastrointestinal: Reports loose stools and melena; Denies constipation, diarrhea, nausea or vomiting Genitourinary Genitourinary: Denies dysuria Neurologic Neurologic: Denies focal weakness, numbness or tremor(s) Psychiatric Psychiatric: Denies anxiety or depression Vital Signs Vital Signs Vital Signs: 06/25/23 14:03 06/25/23 14:05 06/25/23 16:02 Temperature 97.8 F Temperature Source Temporal Pulse Rate 78 Respiratory Rate 14 16 Respiratory Effort Normal Non-Labored Respiratory Pattern Normal Blood Pressure 100/48 L Blood Pressure Mean 65 Pulse Ox 98 Oxygen Delivery Method Room Air 06/25/23 18:00 Temperature Temperature Source Pulse Rate Respiratory Rate 16 Respiratory Effort Respiratory Pattern Blood Pressure Blood Pressure Mean Pulse Ox Oxygen Delivery Method Physical Exam Narrative General: Alert, Oriented x3, Cooperative, No apparent distress HEENT: Atraumatic, PERRLA, EOMI, Normocephalic, facial ecchymosis in various stages of healing Oral: Moist Mucosa Neck: Supple, No JVD Lungs: Diminished, Normal air movement, No rhonchi, No wheeze, No rales Cardiovascular: Regular rate, Regular Rhythm, Normal S1, Normal S2, No murmurs Abdomen: Soft, Non Tender, Non-Distended, No Hepato-splenomegaly Extremities: No edema, Capillary Refill Less than 3 Seconds Skin: No rashes, No breakdown Musculoskeletal: No Tenderness to Palpation of Joints or Extremities Neurological: Moves all extremities, Sensory exam intact to light touch and pain Psych/Mental Status: Flat Results Lab / Micro Data 06/25/23 15:30 06/25/23 15:30 Labs: Laboratory Results - last 24 hr 06/25/23 15:30: WBC 12.8 H, RBC 2.68 L, Hgb 8.3 L, Hct 26.8 L, MCV 100.0 H, MCH 31.0, MCHC 31.0 L, RDW Std Deviation 74.6 H, RDW Coeff of Jesi 21.6 H, Plt Count 371, MPV 9.4, Immature Gran % (Auto) 0.600, Neut % (Auto) 88.4 H, Lymph % (Auto) 5.3 L, [place] % (Auto) 5.3, Eos % (Auto) 0.2, Baso % (Auto) 0.2, Absolute Neuts (auto) 11.3 H, Absolute Lymphs (auto) 0.68 L, Nucleated RBC % 0.2, Platelet Estimate ADEQUATE, RBC Morphology N CHROM, Hypochromasia RARE, Anisocytosis 1+, Macrocytosis 1+, Sodium 131 L, Potassium 5.7 H, Chloride 104, Carbon Dioxide 17.0 L, Anion Gap 10, BUN 95 H, Creatinine 3.66 H, Est GFR (MDRD) Af Amer 15 L, Est GFR (MDRD) Non-Af 12 L, BUN/Creatinine Ratio 26.0 H, Glucose 292 H, Lactic Acid 1.5, Calcium 8.6, Total Bilirubin 0.80, AST 12 L, ALT 13, Alkaline Phosphatase 88, Total Protein 6.7, Albumin 2.8 L, Globulin 3.9, Albumin/Globulin Ratio 0.7 L 06/25/23 15:55: Urine Color Yellow, Urine Clarity Clear, Urine pH 5.0, Ur Specific [place] 1.010, Urine Protein 15 H, Urine Glucose (UA) 1000 H, Urine Ketones 5 H, Urine Occult Blood 10 H, Urine Nitrite Negative, Urine Bilirubin Negative, Urine Urobilinogen Normal, Ur Leukocyte Esterase 500 H, Urine RBC 0 SEEN, Urine WBC 0-5 SEEN, Ur Squamous Epith Cells 0 SEEN, Urine Bacteria 0 SEEN, Hyaline Casts 0-5 SEEN, Urine Mucus 0 SEEN 06/25/23 16:26: Blood Type O POSITIVE, Antibody Screen NEGATIVE Micro: Microbiology 06/25/23 15:55 Stool Stool Occult Blood (JOLEEN) - Final Occult Blood Positive Rhythm Strip Rhythm Strip: Sinus Rhythm Rate: 77 Ectopy: None Radiology Impression Chest X-Ray 06/25/23 16:00 IMPRESSION: Pulmonary granulomas and hilar granulomatous calcifications.. Electronically Signed: Alfie Kasper at 16:15 EST Reading Location ID and State: [facility] / [place] Tel [phone], Service support , Assessment & Plan Assessment/Plan (1) GI bleed: PLAN: Plan 1. Acute blood loss anemia secondary to GI bleed/elevated creatinine with CKD 4 ? Consult GI ? Continue with octreotide and Protonix drips ? They recommended Rocephin for prophylaxis as we do not know if she has any chronic liver disease with varices, she did have a leukocytosis and a urine culture is pending though UA with no bacteria but 500 leukocyte esterase ? We will hold her Eliquis as well as her antiplatelet secondary to her fall risk and her GI bleeding ? We will hold her blood pressure secondary to her bleeding and her softer blood pressures in the ER in the low 100s systolic ? We will place her on a clear liquid diet pending scope ? Given her poor p.o. intake we will start her on some IV fluids and hold her Lasix ? Her creatinine is elevated though not in the range of an ANALISA in the setting of her chronic kidney disease stage IV 2. HTN/HLD/CAD status post stents/status post aortic valve replacement/chronic diastolic CHF ? Blood pressures are currently stable but soft ? We will hold her home blood pressure medications ? Hold aspirin and Plavix ? Continue with Lipitor ? Continue with her Jardiance, will hold her Lasix secondary to her renal function 3. DM2/CKD 4 ? Continue with insulin ? Accu-Cheks ACHS ? We will monitor and make adjustments as necessary ? Creatinine is little bit elevated, will start her on some IV fluids and continue to monitor DVT: SCDs Charges/Coding Visit Charges Inpatient E&M: 61455 Init Hosp L3
[2023-06-25 18:37] VITALS: BP 103/46; PULSE 74; RESP 15; O2SAT 99
[2023-06-25 19:02] VITALS: BP 113/32; PULSE 73; RESP 12; TEMP 36.5; O2SAT 100
[2023-06-25 19:35] VITALS: BMI 23.3
[2023-06-25 19:48] LABS: Hematocrit 24.9 % (37-47); Hemoglobin 7.6 g/dL (12.0-15.0)
[2023-06-25] MEDS: 0.9% Normal Saline (1000mL) 1,000 ML 75 ML IV (21:22)
[2023-06-25] MEDS: Insulin Lispro 100 UNIT/ML INSULN.PEN SC (22:43)
--- NOTE | 2023-06-25 23:00 | CON.PCM.GI_ITS ---
HPI Consult Data Date of Consult: 06/26/23 HPI Narrative Reason for Consultation: GI bleed HPI Narrative: PHUC AIKEN, is a 87-year-old female history of insulin-dependent diabetes mellitus, long-term anticoagulation on Eliquis, CKD 3, diastolic heart failure and paroxysmal atrial fibrillation presenting for worsening generalized weakness and concern for need for placement. Patient had a recent admission for fall and was discharged with home health, PT and OT. Family notes that over the past week and a half she is no longer participating anything, cannot take care of her of her activity of daily living including feeding herself or using the restroom and is getting more weak. No new falls. She has had a diarrhea and is not really eating. Denies any blood in her stool. Attributes the diarrhea to treating constipation with MiraLAX and now it is overtreated. They states she has had 2-3 episodes of bowel incontinence t xiomara. Patient states that she feels short of breath sometimes when she does not eat. Her 2 months ago and she now lives alone. Family is looking into getting her in long-term care at [facility] in [place] where she has siblings but they state is at the point that they cannot take care of her at home anymore and she needs [id number]. Patient currently denies any complaints. Note since her discharge her PCP did decrease her Lasix because of an uptick in her what sounds like her creatinine/GFR. Patient was admitted on 06/04 through 06/09 for UTI and weakness associate with fall. 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/17) Hyperlipidemia Hypertension associated with diabetes Hypoxia Ischemic cardiomyopathy Mitral annular calcification Nonrheumatic aortic (valve) stenosis Nonrheumatic mitral (valve) insufficiency Normocytic anemia Paroxysmal atrial fibrillation Renal artery stenosis Home Medications aspirin 81 mg chewable tablet 81 mg PO DAILY@0800 BLOOD THINNER 04/21/17 [History Last Taken 06/18/22] amlodipine 10 mg tablet 10 mg PO DAILY BP 04/28/17 [History Last Taken 06/18/22] apixaban 2.5 mg tablet (Eliquis) 2.5 mg PO BID BLOOD THINNER 09/07/19 [History Last Taken 06/18/22] losartan 50 mg tablet 50 mg PO BID BP 06/19/22 [History Last Taken 06/18/22] metoprolol succinate 25 mg tablet,extended release 24 hr 25 mg PO QHS blood pressure 06/19/22 [History Last Taken 06/18/22] metoprolol succinate 100 mg tablet,extended release 24 hr 100 mg PO DAILY blood pressure 07/30/22 [History Last Taken Unknown] ferrous sulfate 325 mg (65 mg iron) tablet 325 mg PO BID supplement #60 tabs 10/19/22 [Rx Last Taken Unknown] potassium chloride 20 mEq tablet,extended release(part/cryst) (Klor-Con M) 20 meq PO BIDCM supplement #60 tabs 10/19/22 [Rx Last Taken Unknown] empagliflozin 10 mg tablet (Jardiance) 10 mg PO DAILY diabetes 02/09/23 [History Last Taken Unknown] clopidogrel 75 mg tablet 75 mg PO DAILY anti platelet 06/04/23 [History Last Taken Unknown] furosemide 40 mg tablet 40 mg PO BID diuretic 06/04/23 [History Last Taken Unknown] glipizide 5 mg tablet 5 mg PO DAILY diabetes 06/04/23 [History Last Taken Unknown] atorvastatin 10 mg tablet 10 mg PO DAILY cholestrol 06/19/23 [History Last Taken Unknown] insulin glargine 100 unit/mL (3 mL) subcutaneous pen (Lantus Solostar U-100 Insulin) 15 unit subcut DAILY diabetes 06/19/23 [History Last Taken Unknown] polyethylene glycol 3350 17 gram/dose oral powder (ClearLax) 17 g PO DAILY PRN bowels 06/19/23 [History Last Taken Unknown] leg cramps PO QHS leg cramps 06/25/23 [History Last Taken Unknown] Allergy/AdvReac Type Severity Reaction Status Date / Time No Known Allergies Allergy Verified 06/25/23 14:03 Family History Sister Asthma Breast cancer Hypertension Hyperlipidemia Melanoma Father , From old age per patient. Denies specific medical problems. No problems noted. Mother , From old age per patient. Denies specific medical problems. No problems noted. Surgical History History of appendectomy History of coronary angioplasty (09/18/21) History of left heart catheterization (04/2017) History of percutaneous transluminal coronary angioplasty (~09/18/21) S/P TAVR (transcatheter aortic valve replacement) Social History household members: none Smoking Status: Never smoker alcohol intake: never substance use type: does not use caffeine: Yes Type: coffee Number of servings: 1 ROS Constitutional Constitutional: Reports fatigue, malaise and weakness; Denies chills or fever(s) Eyes Eyes: Denies blurry vision ENT HEENT: Denies headache(s) or nasal discharge Cardiovascular Cardiovascular: Denies chest pain, dyspnea on exertion or syncope Respiratory/Chest Respiratory/Chest: Denies cough, shortness of breath at rest or shortness of breath with exertion Gastrointestinal Gastrointestinal: Reports loose stools and melena; Denies constipation, diarrhea, nausea or vomiting Genitourinary Genitourinary: Denies dysuria Neurologic Neurologic: Denies focal weakness, numbness or tremor(s) Psychiatric Psychiatric: Denies anxiety or depression Physical Exam Narrative General: Alert, not overtly distressed HEENT: Atraumatic, normocephalic Eyes: Anicteric, normal conjunctiva, extraocular movements grossly intact Neck: Supple Respiratory: Clear to auscultation bilaterally, normal respiratory effort Cardiovascular: Regular rate GI: Soft, nontender, nondistended Extremities: No edema, does have ecchymosis over right knee Musculoskeletal: Moving all extremities Neuro: No overt focal neurological deficits Skin: Multiple ecchymoses diffusely Psych: Cooperative Lab / Micro Data 06/26/23 06:25 06/26/23 08:07 Labs: Laboratory Results - last 24 hr 06/25/23 16:26: Blood Type O POSITIVE, Antibody Screen NEGATIVE, Crossmatch See Detail 06/25/23 19:33: Hgb 7.6 L, Hct 24.9 L 06/25/23 22:29: POC Glucose 150 H 06/26/23 06:25: WBC 10.0, RBC 2.15 L, Hgb 6.7 L, Hct 22.2 L, MCV 103.3 H, MCH 31.2, MCHC 30.2 L, RDW Std Deviation 78.9 H, RDW Coeff of Jesi 21.8 H, Plt Count 287, MPV 9.3, Immature Gran % (Auto) 0.700, Neut % (Auto) 73.9 H, Lymph % (Auto) 11.8 L, [place] % (Auto) 10.6 H, Eos % (Auto) 2.5, Baso % (Auto) 0.5, Absolute Neuts (auto) 7.4, Absolute Lymphs (auto) 1.17, Nucleated RBC % 0.2, Differential Comment SCANNED, Hypochromasia 1+, Anisocytosis 1+, Microcytosis RARE, Macrocytosis 1+, Sodium 140, Potassium 4.5, Chloride 113 H, Carbon Dioxide 20.0 L, Anion Gap 7, BUN 83 H, Creatinine 3.17 H, Estim Creat Clear Calc 9.70, Est GFR (MDRD) Af Amer 18 L, Est GFR (MDRD) Non-Af 15 L, BUN/Creatinine Ratio 26.2 H , Glucose 46 L, Calcium 7.7 L, Total Bilirubin 0.50, AST 10 L, ALT 10 L, Alkaline Phosphatase 67, Total Protein 5.3 L, Albumin 2.2 L, Globulin 3.1, Albumin/Globulin Ratio 0.7 L 06/26/23 07:04: POC Glucose 36 L* 06/26/23 07:44: POC Glucose 30 L* 06/26/23 08:07: Glucose 265 H 06/26/23 08:08: POC Glucose 142 H 06/26/23 10:37: POC Glucose 166 H 06/26/23 15:37: POC Glucose 133 H Micro: Microbiology 06/25/23 15:55 Urine, Catheterized Urine Culture - Preliminary GNR lactose internet designer 06/25/23 15:55 Stool Stool Occult Blood (JOLEEN) - Final Occult Blood Positive Rhythm Strip Rhythm Strip: Sinus Rhythm Rate: 77 Ectopy: None Assessment & Plan Assessment/Plan (1) GI bleed: PLAN: Plan Acute blood loss anemia secondary to GI bleed/elevated creatinine with CKD 4 ? Continue with octreotide and Protonix drips ? I recommended Rocephin for prophylaxis as we do not know if she has any chronic liver disease with varices, she did have a leukocytosis and a urine cu lture is pending though UA with no bacteria but 500 leukocyte esterase ? hold her Eliquis as well as her antiplatelet secondary to her fall risk and her GI bleeding - She will undergo upper endoscopy to evaluate upper GI tract. She was explained alternatives, risk, benefits including outstanding bleeding, infection, sepsis, perforation, need for mergers and . She will have an ASA of 3. Charges/Coding Visit Charges Inpatient E&M: 63733 Init Hosp L3
[2023-06-25 23:02] LABS: Bedside Glucose 150 mg/dL (74-106)
[2023-06-26] VITALS (14 sets, daily range): BP systolic 87–115; BP diastolic 29–81; PULSE 64–81; RESP 16–18; TEMP 36.3–37.2; O2SAT 92–100; BMI 23.3
[2023-06-26] MEDS: Acetaminophen 500 MG Tablet PO (02:54)
[2023-06-26] MEDS: Morphine 2 MG/ML Syringe IV (04:01)
[2023-06-26] MEDS: 0.9% Saline Lock 10 ML Syringe IV ×3 (04:05→10:33)
[2023-06-26] MEDS: Pantoprazole Sodium 80 MG in 0.9% Normal Saline (100mL Bag) 80 ML 10 MG CONT INF ×2 (05:00→14:37)
[2023-06-26 06:57] LABS: Absolute Lymphocyte Count 1.17 X10^3/uL (0.83-4.51); Absolute Neutrophil Count 7.4 X10^3/uL (2.0-7.7); Basophil# 0.05 X10^3/uL; Basophil% 0.5 % (0-1); Eosinophil# 0.25 X10^3/uL; Eosinophils% 2.5 % (0-5); Hematocrit 22.2 % (37-47); Hemoglobin 6.7 g/dL (12.0-15.0); Lymphocyte # 1.17 X10^3/ul (0.83-4.51); Lymphocyte % 11.8 % (19-41); Mean Corp Hgb Conc 30.2 g/dL (32-36); Mean Corpuscular Hgb 31.2 pg (27.0-32.0); Mean Corpuscular Volume 103.3 fL (81-99); Mean Platelet Vol. 9.3 fl (6.2-12.0); Monocyte# 1.05 X10^3/uL; Monocyte% 10.6 % (0-10); NRBC Flagged by Analyzer 0.2 % (0-5); Neutrophil # 7.36 X10^3/uL (2.7-7.7); Neutrophil % 73.9 % (47-70); POSITIVE MORPHOLOGY YES; Platelet Count 287 K/mm3 (150-450); RBC Distribution Width CV 21.8 % (11.6-14.6); RBC Distribution Width SD 78.9 fl (35.1-43.9); Red Blood Count 2.15 M/mm3 (4.2-5.4)
[2023-06-26 07:11] LABS: Differential Indicated SCAN CRITERIA MET
[2023-06-26 07:16] LABS: Differential Comment SCANNED
[2023-06-26 07:17] LABS: Anisocytosis 1+; Hypochromasia 1+; Macrocytosis 1+; Microcytosis RARE
[2023-06-26 07:28] LABS: Bedside Glucose 36 mg/dL (74-106)
[2023-06-26 07:37] LABS: ALB/GLOB Ratio 0.7 RATIO (0.9-2.4); AST(SGOT) 10 U/L (15-37); Alanine Aminotransfer ALT/SGPT 10 U/L (13-56); Albumin, Serum 2.2 g/dL (3.2-5.0); Alkaline Phosphatase 67 U/L (45-117); Anion Gap 7 (5-15); BUN 83 mg/dL (7-18); BUN/Creat Ratio 26.2 RATIO (10-20); Calcium,Total 7.7 mg/dL (8.5-10.1); Chloride 113 mmol/L (98-107); Creatinine, Serum 3.17 mg/dL (0.55-1.02); EST Glomerular Filtration Rate 15 mL/min (>60); Est Glom Filt Rate - Afr Amer 18 mL/min (>60); Globulin 3.1 g/dL (2.2-4.2); Glucose 46 mg/dL (74-106); Potassium 4.5 mmol/L (3.5-5.1); Protein, Total 5.3 g/dL (6.4-8.2); Sodium Level 140 mmol/L (136-145)
[2023-06-26] MEDS: Dextrose 50%-Water 25 GM/50 ML DISP.SYRIN IV (07:49)
[2023-06-26 08:04] LABS: Bedside Glucose 30 mg/dL (74-106)
--- NOTE | 2023-06-26 08:15 | PCM.PN.HOSP ---
Reason for Visit Reason for Visit: Diagnoses Gastrointestinal hemorrhage, unspecified (06/25/23) Subjective Subjective Resting in bed, no acute distress, reports still some right knee pain from previous fall, no further bowel movements, breathing unchanged Objective Data Objective Data Vital Signs: Vital Signs Temp Pulse Resp BP Pulse Ox O2 Del Method 97.6 F L 75 18 110/54 L 94 Room Air 06/26/23 08:00 06/26/23 08:00 06/26/23 08:00 06/26/23 08:00 06/26/23 08:00 06/26/23 08:00 Oxygen Delivery Method Room Air Weight: 57.8 kg Body Mass Index (BMI) 23.3 Intake & Output: Intake and Output for Last 24 Hours 06/24/23 06/25/23 06/26/23 23:59 23:59 23:59 Intake Total 735 / 735 100 / 100 Output Total 0 / 0 0 / 0 Balance 735 / 735 100 / 100 Lab / Micro Data 06/26/23 06:25 06/26/23 08:07 Labs: Laboratory Results - last 24 hr 06/25/23 15:30: WBC 12.8 H, RBC 2.68 L, Hgb 8.3 L, Hct 26.8 L, MCV 100.0 H, MCH 31.0, MCHC 31.0 L, RDW Std Deviation 74.6 H, RDW Coeff of Jesi 21.6 H, Plt Count 371, MPV 9.4, Immature Gran % (Auto) 0.600, Neut % (Auto) 88.4 H, Lymph % (Auto) 5.3 L, Waller % (Auto) 5.3, Eos % (Auto) 0.2, Baso % (Auto) 0.2, Absolute Neuts (auto) 11.3 H, Absolute Lymphs (auto) 0.68 L, Nucleated RBC % 0.2, Platelet Estimate ADEQUATE, RBC Morphology N CHROM, Hypochromasia RARE, Anisocytosis 1+, Macrocytosis 1+, Sodium 131 L, Potassium 5.7 H, Chloride 104, Carbon Dioxide 17.0 L, Anion Gap 10, BUN 95 H, Creatinine 3.66 H, Est GFR (MDRD) Af Amer 15 L, Est GFR (MDRD) Non-Af 12 L, BUN/Creatinine Ratio 26.0 H, Glucose 292 H, Lactic Acid 1.5, Calcium 8.6, Total Bilirubin 0.80, AST 12 L, ALT 13, Alkaline Phosphatase 88, Total Protein 6.7, Albumin 2.8 L, Globulin 3.9, Albumin/Globulin Ratio 0.7 L 06/25/23 15:55: Urine Color Yellow, Urine Clarity Clear, Urine pH 5.0, Ur Specific Baldwin 1.010, Urine Protein 15 H, Urine Glucose (UA) 1000 H, Urine Ketones 5 H, Urine Occult Blood 10 H, Urine Nitrite Negative, Urine Bilirubin Negative, Urine Urobilinogen Normal, Ur Leukocyte Esterase 500 H, Urine RBC 0 SEEN, Urine WBC 0-5 SEEN, Ur Squamous Epith Cells 0 SEEN, Urine Bacteria 0 SEEN, Hyaline Casts 0-5 SEEN, Urine Mucus 0 SEEN 06/25/23 16:26: Blood Type O POSITIVE, Antibody Screen NEGATIVE 06/25/23 19:33: Hgb 7.6 L, Hct 24.9 L 06/25/23 22:29: POC Glucose 150 H 06/26/23 06:25: WBC 10.0, RBC 2.15 L, Hgb 6.7 L, Hct 22.2 L, MCV 103.3 H, MCH 31.2, MCHC 30.2 L, RDW Std Deviation 78.9 H, RDW Coeff of Jesi 21.8 H, Plt Count 287, MPV 9.3, Immature Gran % (Auto) 0.700, Neut % (Auto) 73.9 H, Lymph % (Auto) 11.8 L, Waller % (Auto) 10.6 H, Eos % (Auto) 2.5, Baso % (Auto) 0.5, Absolute Neuts (auto) 7.4, Absolute Lymphs (auto) 1.17, Nucleated RBC % 0.2, Differential Comment SCANNED, Hypochromasia 1+, Anisocytosis 1+, Microcytosis RARE, Macrocytosis 1+, Sodium 140, Potassium 4.5, Chloride 113 H, Carbon Dioxide 20.0 L, Anion Gap 7, BUN 83 H, Creatinine 3.17 H, Estim Creat Clear Calc 9.70, Est GFR (MDRD) Af Amer 18 L, Est GFR (MDRD) Non-Af 15 L, BUN/Creatinine Ratio 26.2 H, Glucose 46 L, Calcium 7.7 L, Total Bilirubin 0.50, AST 10 L, ALT 10 L, Alkaline Phosphatase 67, Total Protein 5.3 L, Albumin 2.2 L, Globulin 3.1, Albumin/Globulin Ratio 0.7 L 06/26/23 07:04: POC Glucose 36 L* 06/26/23 07:44: POC Glucose 30 L* Micro: Microbiology 06/25/23 15:55 Stool Stool Occult Blood (JOLEEN) - Final Occult Blood Positive Radiography Diagnostic Testing: Radiology Impression Chest X-Ray 06/25/23 16:00 IMPRESSION: Pulmonary granulomas and hilar granulomatous calcifications.. Electronically Signed: Alfie Kasper DO at 16:15 EST Reading Location ID and State: [facility] / [place] Tel [phone], Service support , Rhythm Strip Rhythm Strip: Sinus Rhythm Rate: 77 Ectopy: None Physical Exam Narrative General: Alert, not overtly distressed HEENT: Atraumatic, normocephalic Eyes: Anicteric, normal conjunctiva, extraocular movements grossly intact Neck: Supple Respiratory: Clear to auscultation bilaterally, normal respiratory effort Cardiovascular: Regular rate GI: Soft, nontender, nondistended Extremities: No edema, does have ecchymosis over right knee Musculoskeletal: Moving all extremities Neuro: No overt focal neurological deficits Skin: Multiple ecchymoses diffusely Psych: Cooperative Assessment & Plan Assessment/Plan (1) GI bleed: PLAN: Plan #ABLA 2/2 GIB Acute blood loss anemia secondary to GI bleed ? Consult GI ? Continue with octreotide and Protonix drips ? They recommended Rocephin for prophylaxis as we do not know if she has any chronic liver disease with varices, she did have a leukocytosis and a urine culture is pending though UA with no bacteria but 500 leukocyte esterase ? We will hold her Eliquis as well as her antiplatelet secondary to her fall risk and her GI bleeding ? We will hold her blood pressure secondary to her bleeding and her softer blood pressures in the ER in the low 100s systolic ? We will place her on a clear liquid diet pending scope ? Given her poor p.o. intake we will start her on some IV fluids and hold her Lasix -06/26: Hemoglobin 9.1 on 07/16/2023, yesterday on presentation 8.3 and has downtrended to 6.7. Type and screen, transfuse 1 unit packed red blood cells, remains on Protonix. There is concern from GI for undiagnosed cirrhosis so she is also on octreotide drip and Rocephin. Has had intermittently low BPs but BP has improved with fluids, suspect it will improve further with blood administration. Continue to hold aspirin and Plavix and Eliquis, all 3 are on home med list and will need to verify if patient actually taking all 3 as this increases risk of bleeding #ANALISA on CKD stage IV -06/26: Suspect ANALISA on admission as baseline creatinine seems to be variable but anywhere from 1.2 to midrange twos. Creatinine was slightly elevated from baseline on 06/19 with a creatinine of 2.85 and on presentation 6 days later was 3.66, has improved with fluids and is 3.17 today but still do not think patient is back at baseline. Continue to hold Lasix, also holding Jardiance #HTN/HLD/CAD status post stents/status post aortic valve replacement/chronic diastolic CHF/paroxysmal atrial fibrillation ? Blood pressures are currently stable but soft ? We will hold her home blood pressure medications ? Hold aspirin and Plavix ? Continue with Lipitor ? Continue with her Jardiance, will hold her Lasix secondary to her renal function -06/26: Holding Eliquis, aspirin, Plavix, will need to verify if patient is actually taking all 3 meds this would increase risk of bleeding. Holding Lasix, monitor weights and I's and O's. Hold Jardiance #Urinary retention -Noted after admission, patient retaining so Onofre catheter placed #Recent fall with injury to right knee -Patient has as needed pain control, x-ray obtained due to fall with continued pain #DM2 ? Continue with insulin ? Accu-Cheks ACHS ? We will monitor and make adjustments as necessary -06/26: Patient with hypoglycemia, holding long-acting insulin, suspect decreased clearance given worsening kidney function, patient also now n.p.o., patient given dextrose push. Sliding scale changed to low-dose correction factor and Jardiance held DVT: SCDs Time spent in the patient's overall evaluation,decision-making process, review of diagnostic data, adjustment of management, discussion with other providers, nursing nursing and ancillary staff involved in patient's care documentation, 51 minutes Charges/Coding Visit Charges Inpatient E&M: 45667 Subs Hosp L3
[2023-06-26 08:31] LABS: Glucose 265 mg/dL (74-106)
[2023-06-26] MEDS: Ceftriaxone 1 GM/50 ML BAG IV (09:04)
--- NOTE | 2023-06-26 10:40 | RAD_ITS ---
STUDY: X-RAY - RIGHT KNEE REASON FOR EXAM: Female, 87 years old. fall w/ knee pain TECHNIQUE: 2 view(s) of the knee. COMPARISON: None. FINDINGS: Radiolucency of the articular surface of the medial femoral condyle with surrounding sclerosis worrisome for an osteochondral lesion. Normal visualized proximal tibia and fibula. Normal proximal tibiofibular articulation. There is moderate degenerative arthrosis of the medial femorotibial compartment with moderate joint space narrowing. Normal lateral femorotibial compartment. There is mild degenerative arthrosis of the patellofemoral articulation. There are atherosclerotic calcifications. RAD/Knee 1 or 2 Views IMPRESSION: Degenerative arthrosis. Suspect osteochondral lesion of the medial femoral condyle. MRI would be useful. Electronically Signed: Sánchez Cruz MD at 22:37 EST ,
[2023-06-26 11:08] LABS: Bedside Glucose 166 mg/dL (74-106)
[2023-06-26 11:37] LABS: Bedside Glucose 142 mg/dL (74-106)
--- NOTE | 2023-06-26 12:15 | IMM_PTH ---
PATIENT: PHUC AIKEN LOC: PCU U#:[id number] AGE/SX: 87/F ROOM: [facility] RE06/25/[address]: Dr. Sue Winters MD : 1935 BED: 1 DIS: 06/29/2023 SPEC #: [id number] RECD: 06/30/23 07:33 STATUS: YVETTE REQ #: [id number] PAVEL: 06/26/23 12:[address]: Pernell Lombardi DEPT: IMMUNOHISTOCHEMISTRY RECD BY: Divya Mendez ENTERED: 06/30/23 07:34 SP TYPE: IMMUNO OTHR DR: DO Dr. Rico Delacruz MD Dr. Paige Pierce, MD Tissues: B - Stomach, NOS Procedures: H Pylori (initial) PHYSICIAN & INSTITUTION [place] [id number] SPECIMEN INFORMATION: Tissue Source: B - Gastric body Clinical Info: GI bleed Specimen Number: [id number] CPT code: 50425 METHODOLOGY: Deparaffinized sections of prefer/formalin-fixed tissue or PAP/DQ stained slides are incubated with monoclonal/polyclonal antibodies/oligonucleotide probes. Localization is made via biotin free immunoperoxidase method. Appropriate controls are performed and reacted as expected. Results on target cell population are indicated in the following table: RESULTS: ANTIBODY / CLONE RESULT Block B H Pylori (polyclonal) negative These tests were developed and their performance characteristics determined by [facility]. They may not have been cleared or approved by the U.S. Food and Drug Administration. The FDA has determined that such clearance or approval is not necessary. The above immunohistochemical/dualISH markers are ordered and reviewed by the Pathologist. INTERPRETATION: B. Gastric body, biopsy: Negative for Helicobacter pylori organisms. AM:erik 06/30/2023
--- NOTE | 2023-06-26 12:15 | EGD_PTH ---
PATIENT: PHUC AIKEN LOC: PCU U#:[id number] AGE/SX: 87/F ROOM: [facility] RE06/25/[address]: Dr. Sue Winters MD : 1935 BED: 1 DIS: 06/29/2023 SPEC #: [id number] RECD: 06/26/23 18:25 STATUS: YVETTE REJimena #: [id number] PAVEL: 06/26/23 12:[address]: Pernell Lombardi DEPT: SURGICAL PATHOLOGY RECD BY: Chiara Cordon ENTERED: 06/29/23 10:27 SP TYPE: EGD BIOPSY OTHR DR: DO Dr. Rico Delacruz MD Dr. Paige Pierce, MD Tissues: A - Duodenum, NOS B - Gastric mucous membrane Procedures: Surgery Specimen Level IV Comments: @ Ordering doctor for SUIV edited from to @ by [email or web address] at 06/30/23 0734 @ Submitting doctor edited from to @ by RGOOD at 06/30/23 0734 HEADER OPERATION: EGD with biopsies PRE-OP DIAGNOSIS: GI bleed TISSUE SUBMITTED: A - Duodenal ulcer biopsy, B - Gastric body biopsy MICROSCOPIC DIAGNOSIS A. Duodenal ulcer, biopsy: Mild chronic inflammation and denudation of mucosa. Focal gastric metaplasia. Larry's gland hyperplasia. B. Gastric body, biopsy: Ulceration with associated acute and chronic inflammation. Chronic gastritis with focal active gastritis. AM:erik 06/30/2023 COMMENT B. The results of immunohistochemistry for Helicobacter pylori will be reported separately ([id number]). MICROSCOPIC DESCRIPTION Slides are reviewed. GROSS DESCRIPTION A - Received in fixative is one container labeled with the patient's name and designated duodenal ulcer. The specimen consists of two irregular fragments of light lawson soft tissue that in aggregate measure 0.8 x 0.7 x 0.1 cm. The specimen is totally submitted in one cassette. B - Received in fixative is one container labeled with the patient's name and designated gastric body biopsy. The specimen consists of multiple irregular fragments of light lawson soft tissue that in aggregate measure 1.0 x 0.3 x 0.1 cm. The specimen is totally submitted in one cassette. / AM:erik 06/29/2023 TC:2 CPT: 03116 x2
[2023-06-26] MEDS: Octreotide 0.5 MG in Dextrose 5%-Water (250mL Bag) 250 ML 12.5 MG CONT INF (13:06)
[2023-06-26] MEDS: 0.9% Normal Saline (1000mL) 1,000 ML 75 ML IV (13:29)
[2023-06-26 15:56] LABS: Bedside Glucose 133 mg/dL (74-106)
--- NOTE | 2023-06-26 16:51 | OP.CCLET_ITS ---
06/26/2023 Ventura Baron [address] [facility] [place] [address] Re : Upper GI endoscopy procedure for Koki Morton Dear Dr. Baron This procedure was performed on Monday, June 26, 2023. My impressions and recommendations are as follows: Impressions : - LA Grade D erosive esophagitis. Treated with a heater probe. - Medium-sized hiatal hernia. - Oozing Multiple gastric ulcers with pigmented material. Treated with argon plasma coagulation (APC). - Multiple oozing duodenal ulcers with a visible vessel. Injected. Treated with a heater probe. - No specimens collected. Recommendations : - [facility]. - Full liquid diet. - No aspirin, ibuprofen, naproxen, or other non-steroidal anti-inflammatory drugs for 12 days. My findings are described in the full procedure note, which is enclosed. If I can be of further assistance, please feel free to contact me at . Sincerely, Pernell Lombardi, 06/26/2023 4:51:04 PM This report has been signed electronically.
--- NOTE | 2023-06-26 16:51 | OP.EGD_ITS ---
Patient Name: Koki Morton Procedure Date: 06/26/2023 4:07 PM Date of : 1935 Age: 87 Procedure: Upper GI endoscopy Indications: Iron deficiency anemia, Melena Providers: Pernell Lombardi DO Medicines: Monitored Anesthesia Care Patient Profile: This is an 87 year old female. Refer to note in patient chart for documentation of history and physical. Patient has symptoms of acute epigastric abdominal pain. Complications: No immediate complications. Procedure: Pre-Anesthesia Assessment: - Prior to the procedure, a History and Physical was performed, and patient medications and allergies were reviewed. The risks and benefits of the procedure and the sedation options and risks were discussed with the patient. All questions were answered and informed consent was obtained. Patient identification and proposed procedure were verified by the physician in the pre-procedure area. Mental Status Examination: alert and oriented. Airway Examination: normal oropharyngeal airway and neck mobility. Respiratory Examination: clear to auscultation. CV Examination: normal. Prophylactic Antibiotics: The patient does not require prophylactic antibiotics. Prior Anticoagulants: The patient has taken no previous anticoagulant or antiplatelet agents. ASA Grade Assessment: II - A patient with mild systemic disease. After reviewing the risks and benefits, the patient was deemed in satisfactory condition to undergo the procedure. The anesthesia plan was to use monitored anesthesia care (MAC). Immediately prior to administration of medications, the patient was re-assessed for adequacy to receive sedatives. The heart rate, respiratory rate, oxygen saturations, blood pressure, adequacy of pulmonary ventilation, and response to care were monitored throughout the procedure. The physical status of the patient was re-assessed after the procedure. After obtaining informed consent, the endoscope was passed under direct vision. Throughout the procedure, the patient's blood pressure, pulse, and oxygen saturations were monitored continuously. The Endoscope was introduced through the mouth, and advanced to the second part of duodenum. The upper GI endoscopy was accomplished without difficulty. The patient tolerated the procedure well. Scope In: 4:40:45 PM Scope Out: 4:46:26 PM Total Procedure Duration Time 0 hours 5 minutes 41 seconds Findings: LA Grade D (one or more mucosal breaks involving at least 75% of esophageal circumference) esophagitis with bleeding was found 36 to 40 cm from the incisors. Coagulation for hemostasis using heater probe was successful. Estimated blood loss was minimal. A medium-sized hiatal hernia was present. Many oozing cratered gastric ulcers with pigmented material were found in the gastric body. The largest lesion was 4 mm in largest dimension. Coagulation for hemostasis using argon plasma at 0.3 liters/minute and 20 rizo was successful. Estimated blood loss was minimal. Many oozing cratered duodenal ulcers with a visible vessel were found in the duodenal bulb. The largest lesion was 20 mm in largest dimension. Area was successfully injected with 5 mL of a 0.1 mg/mL solution of epinephrine for drug delivery. Coagulation for hemostasis using heater probe was successful. Estimated blood loss was minimal. Impression: - LA Grade D erosive esophagitis. Treated with a heater probe. - Medium-sized hiatal hernia. - Oozing Multiple gastric ulcers with pigmented material. Treated with argon plasma coagulation (APC). - Multiple oozing duodenal ulcers with a visible vessel. Injected. Treated with a heater probe. - No specimens collected. Recommendation: - [facility] to [facility]. - Full liquid diet. - No aspirin, ibuprofen, naproxen, or other non-steroidal anti-inflammatory drugs for 12 days. Procedure Code(s): --- Professional --- 98591, Esophagogastroduodenoscopy, flexible, transoral; with control of bleeding, any method 62316, 59,51, Esophagogastroduodenoscopy, flexible, transoral; with directed submucosal injection(s), any substance CPT copyright 2021 [employer]. All rights reserved. The codes documented in this report are preliminary and upon wreath and garland maker hand review may be revised to meet current compliance requirements. Pernell Lombardi DO 06/26/2023 4:51:04 PM This report has been signed electronically. Number of Addenda: 0 Note Initiated On: 06/26/2023 4:07 PM
--- NOTE | 2023-06-26 17:49 | CASEMGMT ---
RN CM chart review: Patient was admitted 06/04-06/09/23 for encephalopathy. See RN CM assessment from 06/05/23. Patient was discharged home with family support and [facility]. Patient returned to [facility] ED on 06/25/23 for GI Bleed. Patient resting when RN CM in to discuss readmission. Daughter in law Patricia at bedside. Per DIL, SW with [facility] was working on getting patient to [facility] in [facility]. Family is interested in SNF at discharge. List provided to DIL and requested to review and provide preferences. SW notified of request for SNF at discharge.
[2023-06-26 18:20] LABS: Bedside Glucose 113 mg/dL (74-106)
[2023-06-26 21:57] LABS: Bedside Glucose 59 mg/dL (74-106)
[2023-06-26 22:20] LABS: Bedside Glucose 70 mg/dL (74-106)
[2023-06-26 22:48] LABS: Glucose 97 mg/dL (74-106)
[2023-06-26 22:51] LABS: Bedside Glucose 114 mg/dL (74-106)
[2023-06-27] VITALS (7 sets, daily range): BP systolic 104–118; BP diastolic 47–53; PULSE 73–94; RESP 14–18; TEMP 36.4–37.3; O2SAT 94–97
[2023-06-27] MEDS: Morphine 2 MG/ML Syringe IV (00:24)
[2023-06-27] MEDS: 0.9% Saline Lock 10 ML Syringe IV (00:24)
[2023-06-27] MEDS: Pantoprazole Sodium 80 MG in 0.9% Normal Saline (100mL Bag) 80 ML 10 MG CONT INF ×3 (00:26→20:53)
[2023-06-27 04:11] LABS: Bedside Glucose 90 mg/dL (74-106)
[2023-06-27 06:19] LABS: Absolute Lymphocyte Count 0.87 X10^3/uL (0.83-4.51); Absolute Neutrophil Count 5.6 X10^3/uL (2.0-7.7); Basophil# 0.03 X10^3/uL; Basophil% 0.4 % (0-1); Eosinophil# 0.22 X10^3/uL; Hematocrit 24.9 % (37-47); Hemoglobin 7.6 g/dL (12.0-15.0); Lymphocyte # 0.87 X10^3/ul (0.83-4.51); Lymphocyte % 11.7 % (19-41); Mean Corp Hgb Conc 30.5 g/dL (32-36); Mean Corpuscular Hgb 30.5 pg (27.0-32.0); Mean Platelet Vol. 8.9 fl (6.2-12.0); Monocyte% 9.4 % (0-10); NRBC Flagged by Analyzer 0.3 % (0-5); Neutrophil # 5.57 X10^3/uL (2.7-7.7); Neutrophil % 75.1 % (47-70); POSITIVE MORPHOLOGY YES; Platelet Count 255 K/mm3 (150-450); RBC Distribution Width CV 21.2 % (11.6-14.6); RBC Distribution Width SD 75.6 fl (35.1-43.9); Red Blood Count 2.49 M/mm3 (4.2-5.4); White Blood Count 7.4 K/mm3 (4.4-11.0)
[2023-06-27 06:42] LABS: Differential Indicated SCAN CRITERIA MET
[2023-06-27 06:54] LABS: Anisocytosis 3+
[2023-06-27 07:16] LABS: Bedside Glucose 78 mg/dL (74-106)
[2023-06-27 08:01] LABS: Anion Gap 6 (5-15); BUN 55 mg/dL (7-18); BUN/Creat Ratio 21.7 RATIO (10-20); Calcium,Total 7.7 mg/dL (8.5-10.1); Chloride 115 mmol/L (98-107); Creatinine, Serum 2.54 mg/dL (0.55-1.02); EST Glomerular Filtration Rate 19 mL/min (>60); Est Glom Filt Rate - Afr Amer 23 mL/min (>60); Estimated Creatinine Clearance 12.11 ml/min; Glucose 80 mg/dL (74-106); Potassium 4.3 mmol/L (3.5-5.1); Sodium Level 140 mmol/L (136-145)
[2023-06-27] MEDS: Octreotide 0.5 MG in Dextrose 5%-Water (250mL Bag) 250 ML 12.5 MG CONT INF (09:59)
[2023-06-27] MEDS: Ferrous Sulfate 325 MG Tablet PO ×2 (10:00→16:17)
[2023-06-27] MEDS: Atorvastatin Calcium 10 MG Tablet PO (10:01)
[2023-06-27] MEDS: Ceftriaxone 1 GM/50 ML BAG IV (10:05)
--- NOTE | 2023-06-27 10:05 | PCM.PN.HOSP ---
Reason for Visit Reason for Visit: Diagnoses Gastrointestinal hemorrhage, unspecified (06/25/23) Subjective Subjective Patient does think she is feeling better than yesterday, has not had any bowel movements per patient and has no specific complaints Objective Data Objective Data Vital Signs: Vital Signs Temp Pulse Resp BP Pulse Ox O2 Del Method 98.7 F 79 16 104/49 L 96 Room Air 06/27/23 09:26 06/27/23 09:26 06/27/23 09:26 06/27/23 09:26 06/27/23 09:26 06/27/23 09:26 Oxygen Delivery Method Room Air Weight: 57.8 kg Body Mass Index (BMI) 23.3 Intake & Output: Intake and Output for Last 24 Hours 06/25/23 06/26/23 06/27/23 23:59 23:59 23:59 Intake Total 735 / 735 1929.67 / 1929.67 1709.17 / 1709.17 Output Total 0 / 0 1974 500 / 500 Balance 735 / 735 -45.33 / -45.33 1209.17 / 1209.17 Lab / Micro Data 06/27/23 05:54 06/27/23 05:54 Labs: Laboratory Results - last 24 hr 06/25/23 16:26: Crossmatch See Detail 06/26/23 08:08: POC Glucose 142 H 06/26/23 10:37: POC Glucose 166 H 06/26/23 15:37: POC Glucose 133 H 06/26/23 17:52: POC Glucose 113 H 06/26/23 21:08: POC Glucose 59 L 06/26/23 21:45: POC Glucose 70 L 06/26/23 22:20: Glucose 97 06/26/23 22:32: POC Glucose 114 H 06/27/23 03:30: POC Glucose 90 06/27/23 05:54: WBC 7.4, RBC 2.49 L, Hgb 7.6 L, Hct 24.9 L, MCV 100.0 H, MCH 30.5, MCHC 30.5 L, RDW Std Deviation 75.6 H, RDW Coeff of Jesi 21.2 H, Plt Count 255, MPV 8.9, Immature Gran % (Auto) 0.400, Neut % (Auto) 75.1 H, Lymph % (Auto) 11.7 L, [place] % (Auto) 9.4, Eos % (Auto) 3.0, Baso % (Auto) 0.4, Absolute Neuts (auto) 5.6, Absolute Lymphs (auto) 0.87, Nucleated RBC % 0.3, Anisocytosis 3+, Sodium 140, Potassium 4.3, Chloride 115 H, Carbon Dioxide 19.0 L, Anion Gap 6, BUN 55 H, Creatinine 2.54 H, Estim Creat Clear Calc 12.11, Est GFR (MDRD) Af Amer 23 L, Est GFR (MDRD) Non-Af 19 L, BUN/Creatinine Ratio 21.7 H, Glucose 80, Calcium 7.7 L 06/27/23 06:57: POC Glucose 78 Micro: Microbiology 06/25/23 15:55 Urine, Catheterized Urine Culture - Final Escherichia coli 06/25/23 15:55 Stool Stool Occult Blood (JOLEEN) - Final Occult Blood Positive Radiography Diagnostic Testing: Radiology Impression Knee X-Ray 06/26/23 10:40 IMPRESSION: Degenerative arthrosis. Suspect osteochondral lesion of the medial femoral condyle. MRI would be useful. Electronically Signed: Sánchez Cruz MD at 22:37 EST , Rhythm Strip Rhythm Strip: Sinus Rhythm Rate: 77 Ectopy: None Physical Exam Narrative General: Alert, not overtly distressed HEENT: Atraumatic, normocephalic Eyes: Anicteric, normal conjunctiva, extraocular movements grossly intact Neck: Supple Respiratory: Clear to auscultation bilaterally, normal respiratory effort Cardiovascular: Regular rate GI: Soft, nontender, nondistended Extremities: No edema, does have ecchymosis over right knee Musculoskeletal: Moving all extremities Neuro: No overt focal neurological deficits Skin: Multiple ecchymoses diffusely Psych: Cooperative Assessment & Plan Assessment/Plan (1) GI bleed: PLAN: Plan #ABLA 2/2 GIB Acute blood loss anemia secondary to GI bleed/grade D erosive esophagitis with multiple gastric ulcers and multiple duodenal ulcers ? Consult GI ? Continue with octreotide and Protonix drips ? They recommended Rocephin for prophylaxis as we do not know if she has any chronic liver disease with varices, she did have a leukocytosis and a urine culture is pending though UA with no bacteria but 500 leukocyte esterase ? We will hold her Eliquis as well as her antiplatelet secondary to her fall risk and her GI bleeding ? We will hold her blood pressure secondary to her bleeding and her softer blood pressures in the ER in the low 100s systolic ? We will place her on a clear liquid diet pending scope ? Given her poor p.o. intake we will start her on some IV fluids and hold her Lasix -06/26: Hemoglobin 9.1 on 07/16/2023, yesterday on presentation 8.3 and has downtrended to 6.7. Type and screen, transfuse 1 unit packed red blood cells, remains on Protonix. There is concern from GI for undiagnosed cirrhosis so she is also on octreotide drip and Rocephin. Has had intermittently low BPs but BP has improved with fluids, suspect it will improve further with blood administration. Continue to hold aspirin and Plavix and Eliquis, all 3 are on home med list and will need to verify if patient actually taking all 3 as this increases risk of bleeding -06/27: Patient had EGD yesterday with grade D erosive esophagitis with multiple gastric and duodenal ulcers. Has remained on octreotide, pantoprazole, Rocephin. GI following. Patient on full liquid diet, hemoglobin 7.4 today. Patient is feeling better than yesterday #ANALISA on CKD stage IV -06/26: Suspect ANALISA on admission as baseline creatinine seems to be variable but anywhere from 1.2 to midrange twos. Creatinine was slightly elevated from baseline on 06/19 with a creatinine of 2.85 and on presentation 6 days later was 3.66, has improved with fluids and is 3.17 today but still do not think patient is back at baseline. Continue to hold Lasix, also holding Jardiance -06/27: Slightly better today, will continue present management, can also consider small amounts of fluid however given her pulmonary hypertension and heart failure with preserved ejection fraction prefer to hold Lasix and Jardiance instead of actively giving fluids if possible to avoid overload #HTN/HLD/CAD status post stents/status post aortic valve replacement/chronic diastolic CHF/paroxysmal atrial fibrillation ? Blood pressures are currently stable but soft ? We will hold her home blood pressure medications ? Hold aspirin and Plavix ? Continue with Lipitor ? Continue with her Jardiance, will hold her Lasix secondary to her renal function -06/26: Holding Eliquis, aspirin, Plavix, will need to verify if patient is actually taking all 3 meds this would increase risk of bleeding. Holding Lasix, monitor weights and I's and O's. Hold Jardiance -06/27: Holding Eliquis, aspirin, Plavix #Urinary retention -Noted after admission, patient retaining so Onofre catheter placed #Recent fall with injury to right knee -Patient has as needed pain control, x-ray obtained due to fall with continued pain #DM2 ? Continue with insulin ? Accu-Cheks ACHS ? We will monitor and make adjustments as necessary -06/26: Patient with hypoglycemia, holding long-acting insulin, suspect decreased clearance given worsening kidney function, patient also now n.p.o., patient given dextrose push. Sliding scale changed to low-dose correction factor and Jardiance held DVT: SCDs Time spent in the patient's overall evaluation,decision-making process, review of diagnostic data, adjustment of management, discussion with other providers, nursing nursing and ancillary staff involved in patient's care documentation, 37 minutes Charges/Coding Visit Charges Inpatient E&M: 78953 Subs Hosp L2
[2023-06-27 10:19] LABS: Bedside Glucose 110 mg/dL (74-106)
[2023-06-27 17:24] LABS: Bedside Glucose 129 mg/dL (74-106)
[2023-06-27 23:44] LABS: Bedside Glucose 132 mg/dL (74-106)
[2023-06-28 03:00] VITALS: BP 115/57; PULSE 79; RESP 18; TEMP 37.1; O2SAT 99
[2023-06-28] MEDS: Acetaminophen 500 MG Tablet PO (03:14)
[2023-06-28 06:29] LABS: Absolute Lymphocyte Count 0.93 X10^3/uL (0.83-4.51); Absolute Neutrophil Count 4.2 X10^3/uL (2.0-7.7); Basophil# 0.03 X10^3/uL; Basophil% 0.5 % (0-1); Eosinophil# 0.24 X10^3/uL; Eosinophils% 3.9 % (0-5); Hemoglobin 8.5 g/dL (12.0-15.0); Lymphocyte # 0.93 X10^3/ul (0.83-4.51); Lymphocyte % 14.9 % (19-41); Mean Corp Hgb Conc 31.5 g/dL (32-36); Mean Corpuscular Hgb 31.1 pg (27.0-32.0); Mean Corpuscular Volume 98.9 fL (81-99); Mean Platelet Vol. 9.3 fl (6.2-12.0); Monocyte# 0.79 X10^3/uL; Monocyte% 12.7 % (0-10); NRBC Flagged by Analyzer 0 % (0-5); Neutrophil # 4.21 X10^3/uL (2.7-7.7); Neutrophil % 67.5 % (47-70); POSITIVE MORPHOLOGY YES; Platelet Count 239 K/mm3 (150-450); RBC Distribution Width CV 20.6 % (11.6-14.6); RBC Distribution Width SD 70.5 fl (35.1-43.9); Red Blood Count 2.73 M/mm3 (4.2-5.4); White Blood Count 6.2 K/mm3 (4.4-11.0)
[2023-06-28 06:49] LABS: Differential Indicated SCAN CRITERIA MET
[2023-06-28 06:58] LABS: Bedside Glucose 99 mg/dL (74-106)
[2023-06-28 06:58] LABS: Anisocytosis 2+; Differential Comment SCANNED; Macrocytosis 1+; Microcytosis 1+
[2023-06-28 06:59] LABS: Anion Gap 4 (5-15); BUN 33 mg/dL (7-18); BUN/Creat Ratio 16.2 RATIO (10-20); Calcium,Total 7.7 mg/dL (8.5-10.1); Chloride 109 mmol/L (98-107); Creatinine, Serum 2.04 mg/dL (0.55-1.02); EST Glomerular Filtration Rate 24 mL/min (>60); Est Glom Filt Rate - Afr Amer 30 mL/min (>60); Estimated Creatinine Clearance 15.08 ml/min; Glucose 159 mg/dL (74-106); Potassium 3.6 mmol/L (3.5-5.1); Sodium Level 137 mmol/L (136-145)
[2023-06-28] MEDS: Octreotide 0.5 MG in Dextrose 5%-Water (250mL Bag) 250 ML 12.5 MG CONT INF (07:34)
[2023-06-28] MEDS: Pantoprazole Sodium 80 MG in 0.9% Normal Saline (100mL Bag) 80 ML 10 MG CONT INF (07:34)
--- NOTE | 2023-06-28 08:28 | PN.HOSP_ITS ---
Reason for Visit Reason for Visit: Diagnoses Gastrointestinal hemorrhage, unspecified (06/25/23) Subjective Subjective Feeling slightly better today, seen at bedside with younger son and [id number] present Objective Data Objective Data Vital Signs: Vital Signs Temp Pulse Resp BP Pulse Ox O2 Del Method 98.7 F 79 18 115/57 L 99 Room Air 06/28/23 03:00 06/28/23 03:00 06/28/23 03:00 06/28/23 03:00 06/28/23 03:00 06/28/23 04:06 Oxygen Delivery Method Room Air Weight: 57.8 kg Body Mass Index (BMI) 23.3 Intake & Output: Intake and Output for Last 24 Hours 06/26/23 06/27/23 06/28/23 23:59 23:59 23:59 Intake Total 1929.67 / 1929.67 2627.00 / 2627.00 591 / 591 Output Total 1974 1130 / 1130 400 / 400 Balance -45.33 / -45.33 1497.00 / 1497.00 191 / 191 Lab / Micro Data 06/28/23 05:31 06/28/23 05:31 Labs: Laboratory Results - last 24 hr 06/27/23 09:58: POC Glucose 110 H 06/27/23 16:15: POC Glucose 129 H 06/27/23 21:00: POC Glucose 132 H 06/28/23 05:31: WBC 6.2, RBC 2.73 L, Hgb 8.5 L, Hct 27.0 L, MCV 98.9, MCH 31.1, MCHC 31.5 L, RDW Std Deviation 70.5 H, RDW Coeff of Jesi 20.6 H, Plt Count 239, MPV 9.3, Immature Gran % (Auto) 0.500, Neut % (Auto) 67.5, Lymph % (Auto) 14.9 L , [place] % (Auto) 12.7 H, Eos % (Auto) 3.9, Baso % (Auto) 0.5, Absolute Neuts (auto) 4.2, Absolute Lymphs (auto) 0.93, Nucleated RBC % 0, Differential Comment SCANNED, Anisocytosis 2+, Microcytosis 1+, Macrocytosis 1+, Sodium 137, Potassium 3.6, Chloride 109 H, Carbon Dioxide 24.0, Anion Gap 4 L, BUN 33 H, Creatinine 2.04 H, Estim Creat Clear Calc 15.08, Est GFR (MDRD) Af Amer 30 L, Est GFR (MDRD) Non-Af 24 L, BUN/Creatinine Ratio 16.2, Glucose 159 H, Calcium 7.7 L 06/28/23 06:01: POC Glucose 99 Micro: Microbiology 06/25/23 15:55 Urine, Catheterized Urine Culture - Final Escherichia coli 06/25/23 15:55 Stool Stool Occult Blood (JOLEEN) - Final Occult Blood Positive Rhythm Strip Rhythm Strip: Sinus Rhythm Rate: 77 Ectopy: None Physical Exam Narrative General: Alert, not overtly distressed HEENT: Atraumatic, normocephalic Eyes: Anicteric, normal conjunctiva, extraocular movements grossly intact Neck: Supple Respiratory: Clear to auscultation bilaterally, normal respiratory effort Cardiovascular: Regular rate GI: Soft, nontender, nondistended Extremities: No edema, does have ecchymosis over right knee Musculoskeletal: Moving all extremities Neuro: No overt focal neurological deficits Skin: Multiple ecchymoses diffusely Psych: Cooperative Assessment & Plan Assessment/Plan (1) GI bleed: PLAN: Plan #ABLA 2/2 GIB Acute blood loss anemia secondary to GI bleed/grade D erosive esophagitis with multiple gastric ulcers and multiple duodenal ulcers ? Consult GI ? Continue with octreotide and Protonix drips ? They recommended Rocephin for prophylaxis as we do not know if she has any chronic liver disease with varices, she did have a leukocytosis and a urine culture is pending though UA with no bacteria but 500 leukocyte esterase ? We will hold her Eliquis as well as her antiplatelet secondary to her fall risk and her GI bleeding ? We will hold her blood pressure secondary to her bleeding and her softer blood pressures in the ER in the low 100s systolic ? We will place her on a clear liquid diet pending scope ? Given her poor p.o. intake we will start her on some IV fluids and hold her Lasix -06/26: Hemoglobin 9.1 on 07/16/2023, yesterday on presentation 8.3 and has downtrended to 6.7. Type and screen, transfuse 1 unit packed red blood cells, remains on Protonix. There is concern from GI for undiagnosed cirrhosis so she is also on octreotide drip and Rocephin. Has had intermittently low BPs but BP has improved with fluids, suspect it will improve further with blood administration. Continue to hold aspirin and Plavix and Eliquis, all 3 are on home med list and will need to verify if patient actually taking all 3 as this increases risk of bleeding -06/27: Patient had EGD yesterday with grade D erosive esophagitis with multiple gastric and duodenal ulcers. Has remained on octreotide, pantoprazole, Rocephin. GI following. Patient on full liquid diet, hemoglobin 7.4 today. Patient is feeling better than yesterday -06/28: Continue PPI IV, advance diet, patient on iron supplementation, hemoglobin presently stable #ANALISA on CKD stage IV -06/26: Suspect ANALISA on admission as baseline creatinine seems to be variable but anywhere from 1.2 to midrange twos. Creatinine was slightly elevated from baseline on 06/19 with a creatinine of 2.85 and on presentation 6 days later was 3.66, has improved with fluids and is 3.17 today but still do not think patient is back at baseline. Continue to hold Lasix, also holding Jardiance -06/27: Slightly better today, will continue present management, can also consider small amounts of fluid however given her pulmonary hypertension and heart failure with preserved ejection fraction prefer to hold Lasix and Jardiance instead of actively giving fluids if possible to avoid overload -06/28: Improving today, will check a.m. weights, has not been receiving IV fluids due to concern the patient could overloaded, she is up 2.3 L and we may need to resume diuresis soon #HTN/HLD/CAD status post stents/status post aortic valve replacement TVR May 2017/chronic diastolic CHF/paroxysmal atrial fibrillation ? Blood pressures are currently stable but soft ? We will hold her home blood pressure medications ? Hold aspirin and Plavix ? Continue with Lipitor ? Continue with her Jardiance, will hold her Lasix secondary to her renal function -06/26: Holding Eliquis, aspirin, Plavix, will need to verify if patient is actually taking all 3 meds this would increase risk of bleeding. Holding Lasix, monitor weights and I's and O's. Hold Jardiance -06/27: Holding Eliquis, aspirin, Plavix -06/28: We will need to verify most recent stent placement as she will either need Plavix with DOAC or if its been greater than 12 months may just be able to be treated with DOAC alone especially given bleeding risk #Urinary retention -Noted after admission, patient retaining so Onofre catheter placed -06/28: Urine culture grew somewhat low colony counts of E. coli and patient has been on Rocephin for unrelated reasons, will treat for 5 days with today being day 4 out of 5. Now that patient is improving in her acute illness can attempt voiding trial #Recent fall with injury to right knee -Patient has as needed pain control, x-ray obtained due to fall with continued pain #DM2 ? Continue with insulin ? Accu-Cheks ACHS ? We will monitor and make adjustments as necessary -06/26: Patient with hypoglycemia, holding long-acting insulin, suspect decreased clearance given worsening kidney function, patient also now n.p.o., patient given dextrose push. Sliding scale changed to low-dose correction factor and Jardiance held -06/28: Advancing diet, monitor glucoses, presently glucoses have been acceptable for hospitalization, hold Jardiance and long-acting insulin to avoid hypoglycemia. A1c 8.1% DVT: SCDs Time spent in the patient's overall evaluation,decision-making process, review of diagnostic data, adjustment of management, discussion with other providers, nursing nursing and ancillary staff involved in patient's care documentation,45 minutes Charges/Coding Visit Charges Inpatient E&M: 18405 Subs Hosp L2
[2023-06-28 09:30] VITALS: BP 129/57; PULSE 71; RESP 18; TEMP 36.8; O2SAT 98
[2023-06-28] MEDS: Ceftriaxone 1 GM/50 ML BAG IV (09:33)
[2023-06-28] MEDS: Ferrous Sulfate 325 MG Tablet PO ×2 (09:37→16:15)
[2023-06-28] MEDS: Atorvastatin Calcium 10 MG Tablet PO (09:37)
[2023-06-28 11:44] LABS: Bedside Glucose 114 mg/dL (74-106)
[2023-06-28 15:30] VITALS: BP 117/56; PULSE 83; RESP 18; TEMP 36.7; O2SAT 98
[2023-06-28] MEDS: Insulin Lispro 100 UNIT/ML INSULN.PEN SC ×2 (16:15→21:09)
[2023-06-28 16:58] LABS: Bedside Glucose 222 mg/dL (74-106)
[2023-06-28 20:54] VITALS: BP 115/57; PULSE 88; RESP 15; TEMP 37.3; O2SAT 97
[2023-06-28] MEDS: MELATONIN 10 MG TABLET PO (21:17)
[2023-06-28] MEDS: Pantoprazole Sodium 40 MG in 0.9% Normal Saline (100mL MB+) 100 ML 330 MG IV (21:24)
[2023-06-28] MEDS: 0.9% Saline Lock 10 ML Syringe IV (21:29)
[2023-06-28 21:56] LABS: Bedside Glucose 206 mg/dL (74-106)
[2023-06-29 03:10] VITALS: BP 124/52; PULSE 81; RESP 12; TEMP 37.1; O2SAT 97
[2023-06-29] MEDS: 0.9% Saline Lock 10 ML Syringe IV (03:13)
[2023-06-29] MEDS: Octreotide 0.5 MG in Dextrose 5%-Water (250mL Bag) 250 ML 12.5 MG CONT INF (03:36)
[2023-06-29 03:54] VITALS: BMI 23.2
[2023-06-29 06:20] LABS: Absolute Lymphocyte Count 0.81 X10^3/uL (0.83-4.51); Absolute Neutrophil Count 5.5 X10^3/uL (2.0-7.7); Basophil# 0.03 X10^3/uL; Basophil% 0.4 % (0-1); Eosinophils% 2.7 % (0-5); Hematocrit 27.2 % (37-47); Hemoglobin 8.6 g/dL (12.0-15.0); Lymphocyte # 0.81 X10^3/ul (0.83-4.51); Lymphocyte % 10.9 % (19-41); Mean Corp Hgb Conc 31.6 g/dL (32-36); Mean Corpuscular Hgb 30.7 pg (27.0-32.0); Mean Corpuscular Volume 97.1 fL (81-99); Mean Platelet Vol. 9.4 fl (6.2-12.0); Monocyte# 0.81 X10^3/uL; Monocyte% 10.9 % (0-10); NRBC Flagged by Analyzer 0 % (0-5); Neutrophil # 5.52 X10^3/uL (2.7-7.7); Neutrophil % 74.6 % (47-70); POSITIVE MORPHOLOGY YES; Platelet Count 230 K/mm3 (150-450); RBC Distribution Width CV 20.3 % (11.6-14.6); White Blood Count 7.4 K/mm3 (4.4-11.0)
[2023-06-29 06:26] LABS: Differential Indicated SCAN CRITERIA MET
[2023-06-29] MEDS: Insulin Lispro 100 UNIT/ML INSULN.PEN SC ×2 (06:36→11:58)
[2023-06-29 06:47] LABS: Anion Gap 7 (5-15); BUN 25 mg/dL (7-18); Calcium,Total 7.8 mg/dL (8.5-10.1); Chloride 110 mmol/L (98-107); Creatinine, Serum 1.67 mg/dL (0.55-1.02); EST Glomerular Filtration Rate 31 mL/min (>60); Est Glom Filt Rate - Afr Amer 37 mL/min (>60); Estimated Creatinine Clearance 18.42 ml/min; Glucose 161 mg/dL (74-106); Potassium 3.5 mmol/L (3.5-5.1); Sodium Level 139 mmol/L (136-145)
[2023-06-29 07:03] LABS: Anisocytosis RARE
[2023-06-29 07:15] LABS: Bedside Glucose 167 mg/dL (74-106)
[2023-06-29 08:24] VITALS: BP 112/68; PULSE 77; RESP 12; TEMP 36.9; O2SAT 98
[2023-06-29] MEDS: Ferrous Sulfate 325 MG Tablet PO (08:59)
[2023-06-29] MEDS: Pantoprazole Sodium 40 MG in 0.9% Normal Saline (100mL MB+) 100 ML 330 MG IV (08:59)
[2023-06-29] MEDS: Atorvastatin Calcium 10 MG Tablet PO (08:59)
--- NOTE | 2023-06-29 10:21 | CASEMGMT ---
Per RN CM patient's family's SNF choices are: [facility], and [facility]. SW sent a referral to [facility]. Elisabeth MCMAHAN
[2023-06-29] MEDS: Ceftriaxone 1 GM/50 ML BAG IV (10:42)
--- NOTE | 2023-06-29 12:19 | PCM.TXEXTCAR ---
Diet Diet Order/Speech Therapy: 06/28/23 08:28 Diet: Cardiac. 2 L fluid restriction Is pt able to select menu?: Yes Diet Comments: No reds Routine Orders/Code Status Suppository Type: Dulcolax 10mg Suppository Frequency: Daily PRN Routine Lab Work: CBC (2-3 days) and BMP (2-3 days) Code Status: Full Code Therapies Physical Therapy: Eval and Treat Occupational Therapy: Eval and Treat Problem/Diagnosis (1) GI bleed: Status: Acute Code(s): K92.2 - Gastrointestinal hemorrhage, unspecified (2) Gastric ulcer: Status: Acute Code(s): K25.9 - Gastric ulcer, unspecified as acute or chronic, without hemorrhage or perforation (3) Duodenal ulcer disease: Status: Acute Code(s): K26.9 - Duodenal ulcer, unspecified as acute or chronic, without hemorrhage or perforation (4) Erosive esophagitis: Status: Acute Code(s): K22.10 - Ulcer of esophagus without bleeding (5) ANALISA (acute kidney injury): Status: Acute Code(s): N17.9 - Acute kidney failure, unspecified (6) Kidney disease, chronic, stage IV (GFR 15-29 ml/min): Status: Chronic Code(s): N18.4 - Chronic kidney disease, stage 4 (severe) (7) History of percutaneous transluminal coronary angioplasty: Status: Acute Code(s): Z98.61 - Coronary angioplasty status Comment: Successful PTCA alone to mLAD Dr. Mullen 09/18/21 (8) History of transcatheter aortic valve replacement (TAVR): Status: Acute Code(s): Z95.2 - Presence of prosthetic heart valve Comment: TAVR #23 mm Reeder Lo S3 Aortic valve 05/18/2017 (9) Chronic combined systolic and diastolic CHF (congestive heart failure): Status: Chronic Code(s): I50.42 - Chronic combined systolic (congestive) and diastolic (congestive) heart failure (10) Paroxysmal atrial fibrillation: Status: Acute Code(s): I48.0 - Paroxysmal atrial fibrillation (11) Diabetes mellitus: Status: Acute Code(s): E11.9 - Type 2 diabetes mellitus without complications (12) Osteochondral lesion: Status: Acute Code(s): M89.9 - Disorder of bone, unspecified; M94.9 - Disorder of cartilage, unspecified Comment: suspected osteochondral lesion of medial femoral condyle Plan #ABLA 2/2 GI bleed/grade D erosive esophagitis with multiple gastric ulcers and multiple duodenal ulcers #ANALISA on CKD stage IV- analisa improved #HTN #CAD status post stents #status post aortic valve replacement TVR May 2017 #chronic diastolic CHF #paroxysmal atrial fibrillation #urinary retention on admission- resolved and young out #DM2 #Suspected osteochondral lesion of medial femoral condyle Eight 7-year-old female history of CKD stage IV, hypertension, coronary artery disease with stenting, chronic diastolic heart failure, TAVR, paroxysmal A-fib, type 2 diabetes mellitus presented to the hospital 06/25/2023 with weakness and melena. Hemoglobin recently 9.1 and on presentation was 8.3 and down trended to 6.7. GI consulted and patient transfused 1 unit packed red blood cells. She had EGD 06/26/2023 with erosive esophagitis, multiple gastric and multiple duodenal ulcers and was maintained on octreotide and PPI drips. Patient improved and tolerated advancing diet and hemoglobin was stable. Discussed with GI, can restart anticoagulation after 5 to 7 days from scope. Patient's hospitalization was complicated by ANALISA and CKD stage IV which improved with fluids and holding her Lasix. Of note she also had hypoglycemia after admission and her long-acting insulin was held as well as her Jardiance and glipizide was continued to be held. Glucose improved but still did not have high enough glucose to warrant resumption of all 3 agents on discharge so Jardiance was resumed would recommend monitoring glucose as patient may require additional agents or resumption of insulin as she improves. Additionally due to a fall patient had some acute on chronic right knee pain (family member later indicated that she had been evaluated for surgery but due to her A1c and medical comorbidities conservative management was being pursued) she had an x-ray which showed suspected osteochondral lesion of the medial femoral condyle and that an MRI would be useful. Discussed with Ortho on-call especially given patient's mental status at the time and inability to tolerate MRI, it was felt appropriate to follow-up on an outpatient basis. Overall patient improved and was stable for discharge to TCU, she had no acute complaints on day of discharge. Discharge instructions as follows: DISCHARGE INSTRUCTIONS PLEASE READ *Please take this with you to your next doctors appointment* -Please take Protonix 40 mg twice daily -Resume your Eliquis 07/03/2023. Given your stenting of your coronary artery was greater than 12 months ago you should only need to resume Eliquis and discontinue aspirin and Plavix. Would highly encouraged you follow-up closely with your energy administrator upon discharge -No aspirin, ibuprofen, naproxen, or other non-steroidal anti-inflammatory drugs for 12 days. -You will need to follow-up with Dr. Lombardi with GI in his office upon discharge. Please call his office to schedule your hospital follow-up appointment (ph. [phone]) -Recommend resuming your metoprolol at 50 mg daily given relatively good control over your heart rate and blood pressure. Additionally would recommend holding your losartan until after your kidney function is rechecked and your blood pressure is monitored back on these other medications -Would recommend resuming Lasix at 40 mg daily for 3 days and then can increase to home dose of 40 twice daily -Would recommend lab work (CBC and BMP) to check your kidney function and blood counts in 2 to 3 days -You had a very low blood glucose and have not required your long-acting insulin. Would recommend holding this and your glipizide and resuming your Jardiance and monitoring your blood glucose as you may need further adjustments as you continue to clinically improve and your kidneys improve -Weigh yourself every day. A sudden weight gain can mean you are retaining fluid. Weigh yourself at the same time of day and in the same kind of clothes. Ideally, weigh yourself first thing in the morning after you empty your bladder, but before you eat breakfast. -Please call your physician if your weight goes up by more than 2 pounds in 1 day or 5 pounds in 1 week. This can be a sign that you are retaining more fluid than you should be. Clues to weight gain include checking your ankles for swelling, or noticing you are short of breath when you lie down -Please limit your sodium intake to less than 3 g/day. Here are tips: Limit canned, dried, packaged, and fast foods. Don't add salt to your food at the table. Season foods with herbs instead of salt when you cook. When you eat out, ask that the capacity planning engineer not add any salt to your dish. Don't eat fried or greasy foods. Be careful of bottled beverages. They can contain a lot of salt -Call 911 right away if you have: -Severe shortness of breath, such that you can't catch your breath even while resting -Severe chest pain that does not resolve with rest or nitroglycerin -Foyil, foamy mucus with cough and shortness of breath -An ongoing rapid or irregular heartbeat -Passing out or fainting -Stroke symptoms such as sudden numbness or weakness on one side of your face, arm, or leg or sudden confusion, trouble speaking or vision changes -Due to some cartilage breakdown in your right knee you can follow with an orthopedic doctor upon discharge -Please call your primary care provider's office upon discharge to schedule a hospital follow up within 1 week. -For any concerning signs or symptoms please call 911 or proceed to the nearest emergency department Allergies/Procedures Done in Hospital Allergies No Known Allergies Allergy (Verified 06/25/23 14:03) Procedures: EGD Type of Care/Length of Stay Estimated LOS: Convalescent Care Less Than 30 days Type of Care Needed: Skilled Rehab Potential: Fair Prognosis: Fair Additional Orders/Day of Discharge Day of Discharge: 06/29/23 Dietary and Speech Recommendations Dietitian Recommendations/Changes: recommend advance diet as tolerated to regular/sodium restricted; will monitor PO intake as estbalished, wt, labs, and adjust diet/add ONS if indicated. Discharge Plan Admission Admit Date/Time: 06/25/23 16:57 Primary Reason for Your Visit: GI bleed Attending Provider: Sue Winters Primary Care Provider: Ventura Baron Consulting Providers: Rico Shepherd Instructions Patient Instructions: ED Upper GI Bleeding (Stable) Additional Instructions / Restrictions: DISCHARGE INSTRUCTIONS PLEASE READ *Please take this with you to your next doctors appointment* -Please take Protonix 40 mg twice daily -Resume your Eliquis 07/03/2023. Given your stenting of your coronary artery was greater than 12 months ago you should only need to resume Eliquis and discontinue aspirin and Plavix. Would highly encouraged you follow-up closely with your energy administrator upon discharge - No aspirin, ibuprofen, naproxen, or other non-steroidal anti-inflammatory drugs for 12 days. -Recommend resuming your metoprolol at 50 mg daily given relatively good control over your heart rate and blood pressure. Additionally would recommend holding your losartan until after your kidney function is rechecked and your blood pressure is monitored back on these other medications -Would recommend resuming Lasix at 40 mg daily for 3 days and then can increase to home dose of 40 twice daily -Would recommend lab work (CBC and BMP) to check your kidney function and blood counts in 2 to 3 days -You had a very low blood glucose and have not required your long-acting insulin. Would recommend holding this and your glipizide and resuming your Jardiance and monitoring your blood glucose as you may need further adjustments as you continue to clinically improve and your kidneys improve -Weigh yourself every day. A sudden weight gain can mean you are retaining fluid. Weigh yourself at the same time of day and in the same kind of clothes. Ideally, weigh yourself first thing in the morning after you empty your bladder, but before you eat breakfast. -Please call your physician if your weight goes up by more than 2 pounds in 1 day or 5 pounds in 1 week. This can be a sign that you are retaining more fluid than you should be. Clues to weight gain include checking your ankles for swelling, or noticing you are short of breath when you lie down -Please limit your sodium intake to less than 3 g/day. Here are tips: Limit canned, dried, packaged, and fast foods. Don't add salt to your food at the table. Season foods with herbs instead of salt when you cook. When you eat out, ask that the capacity planning engineer not add any salt to your dish. Don't eat fried or greasy foods. Be careful of bottled beverages. They can contain a lot of salt -Call 911 right away if you have: -Severe shortness of breath, such that you can't catch your breath even while resting -Severe chest pain that does not resolve with rest or nitroglycerin -Foyil, foamy mucus with cough and shortness of breath -An ongoing rapid or irregular heartbeat -Passing out or fainting -Stroke symptoms such as sudden numbness or weakness on one side of your face, arm, or leg or sudden confusion, trouble speaking or vision changes -Due to some cartilage breakdown in your right knee you can follow with an orthopedic doctor upon discharge -Please call your primary care provider's office upon discharge to schedule a hospital follow up within 1 week. -For any concerning signs or symptoms please call 911 or proceed to the nearest emergency department Discharge Orders/Prescriptions Prescriptions: New pantoprazole [Protonix] 40 mg tablet,delayed release (DR/EC) 40 mg PO BID 30 Days Qty: 60 0RF Continued Jardiance 10 mg tablet 10 mg PO DAILY amlodipine 10 MG tablet 10 mg PO DAILY Patient Comments: BLOOD PRESSURE/HEART potassium chloride [Klor-Con M20] 20 mEq Tablet,Er Particles/Crystals 20 meq PO BIDCM Qty: 60 0RF ferrous sulfate 325 mg (65 mg iron) tablet 325 mg PO BID Qty: 60 0RF atorvastatin 10 mg tablet 10 mg PO DAILY polyethylene glycol 3350 [ClearLax] 17 gram/dose powder 17 g PO DAILY PRN (Reason: bowels) furosemide 40 mg tablet 40 mg PO BID Qty: 30 0RF Rx Instructions: Take 40 mg daily for 3 days then increase to home dose Changed metoprolol succinate 100 mg Tablet Extended Release 24 Hr 50 mg PO DAILY Qty: 30 0RF Held Eliquis 2.5 mg tablet 2.5 mg PO BID Hold Instructions: Resume on 07/03/23. losartan 50 mg tablet 50 mg PO BID Hold Instructions: Resume on 07/08/23. Discontinued aspirin 81 MG tablet,chewable 81 mg PO DAILY@0800 Patient Comments: heart health metoprolol succinate 25 mg tablet extended release 24 hr 25 mg PO QHS glipizide 5 mg tablet 5 mg PO DAILY clopidogrel 75 mg tablet 75 mg PO DAILY Patient Comments: TAKE 1 TABLET BY MOUTH ONCE DAILY insulin glargine [Lantus Solostar U-100 Insulin] 100 unit/mL (3 mL) insulin pen 15 unit SUBCUT DAILY Patient Comments: pt uses a pen at home leg cramps PO QHS Patient Comments: otc from [facility] Referrals / Follow Up: Ventura Baron DO [Primary Care Provider] - Rico Jung DO [Med Staff - Active Staff] - (Due to some cartilage breakdown in your right knee you can follow with an orthopedic doctor upon discharge) Pernell Lombardi DO [Med Staff - Active Staff] - ( -You will need to follow-up with Dr. Lombardi with GI in his office upon discharge. Please call his office to schedule your hospital follow-up appointment (ph. [phone])) Disposition Disposition (needs filled in before D/C Order can be placed): [facility] ([facility] Diabetes mellitus Qualifiers: Diabetes mellitus type: type 2
--- NOTE | 2023-06-29 12:20 | CASEMGMT ---
TCU accepted patient. JANEL notified physician. JANEL notified patient, but she did not appear to understand SW. JANEL called patient's son Chris and let him know patient was accepted in TCU and will go today. Chris thanked JANEL for the update. Plan: d/c to [facility] TCU under skilled level of care. Elisabeth MCMAHAN
--- NOTE | 2023-06-29 12:32 | DS.PCM_ITS ---
Providers Date of Admission: 06/25/23 Date of Discharge: 06/29/23 Primary Care Physician: Dr. Ventura Baron, Consultations 06/26/23 08:21 Consult: Gastroenterology Routine Consulting Provider: [facility] Reason for Consult: abla 2/2 gib EMERGENT Consult: No MD Notified: Yes Date Notified: 06/26/23 Time Notified: 08:21 Method of Notification: ED Physician Initiated Reason For Visit: GI BLEED Diagnosis Discharge Diagnosis (1) GI bleed: Status: Acute Code(s): K92.2 - Gastrointestinal hemorrhage, unspecified (2) Gastric ulcer: Status: Acute Code(s): K25.9 - Gastric ulcer, unspecified as acute or chronic, without hemorrhage or perforation (3) Duodenal ulcer disease: Status: Acute Code(s): K26.9 - Duodenal ulcer, unspecified as acute or chronic, without hemorrhage or perforation (4) Erosive esophagitis: Status: Acute Code(s): K22.10 - Ulcer of esophagus without bleeding (5) ANALISA (acute kidney injury): Status: Acute Code(s): N17.9 - Acute kidney failure, unspecified (6) Kidney disease, chronic, stage IV (GFR 15-29 ml/min): Status: Chronic Code(s): N18.4 - Chronic kidney disease, stage 4 (severe) (7) History of percutaneous transluminal coronary angioplasty: Status: Acute Code(s): Z98.61 - Coronary angioplasty status (8) History of transcatheter aortic valve replacement (TAVR): Status: Acute Code(s): Z95.2 - Presence of prosthetic heart valve (9) Chronic combined systolic and diastolic CHF (congestive heart failure): Status: Chronic Code(s): I50.42 - Chronic combined systolic (congestive) and diastolic (congestive) heart failure (10) Paroxysmal atrial fibrillation: Status: Acute Code(s): I48.0 - Paroxysmal atrial fibrillation (11) Diabetes mellitus: Status: Acute Code(s): E11.9 - Type 2 diabetes mellitus without complications Qualifiers: Diabetes mellitus type: type 2 (12) Osteochondral lesion: Status: Acute Code(s): M89.9 - Disorder of bone, unspecified; M94.9 - Disorder of cartilage, unspecified Plan #ABLA 2/2 GI bleed/grade D erosive esophagitis with multiple gastric ulcers and multiple duodenal ulcers #ANALISA on CKD stage IV- analisa improved #HTN #CAD status post stents #status post aortic valve replacement TVR May 2017 #chronic diastolic CHF #paroxysmal atrial fibrillation #urinary retention on admission- resolved and young out #DM2 #Suspected osteochondral lesion of medial femoral condyle Medications at Discharge Home Medications amlodipine 10 mg tablet 10 mg PO DAILY BP 04/28/17 apixaban 2.5 mg tablet (Eliquis) 2.5 mg PO BID BLOOD THINNER 09/07/19 losartan 50 mg tablet 50 mg PO BID BP 06/19/22 ferrous sulfate 325 mg (65 mg iron) tablet 325 mg PO BID supplement #60 tabs 10/19/22 potassium chloride 20 mEq tablet,extended release(part/cryst) (Klor-Con M) 20 meq PO BIDCM supplement #60 tabs 10/19/22 empagliflozin 10 mg tablet (Jardiance) 10 mg PO DAILY diabetes 02/09/23 atorvastatin 10 mg tablet 10 mg PO DAILY cholestrol 06/19/23 polyethylene glycol 3350 17 gram/dose oral powder (ClearLax) 17 g PO DAILY PRN bowels 06/19/23 furosemide 40 mg tablet 40 mg PO BID diuretic #30 tabs 06/29/23 metoprolol succinate 100 mg tablet,extended release 24 hr 50 mg (1/2 x 100 mg) PO DAILY blood pressure #30 tabs 06/29/23 pantoprazole 40 mg tablet,delayed release (Protonix) 40 mg PO BID 30 days #60 tabs 06/29/23 Hospital Course Procedures EGD Summary of Care Provided Minutes Spent on Discharge: 35 Hospital Course: 87-year-old female history of CKD stage IV, hypertension, coronary artery disease with stenting, chronic diastolic heart failure, TAVR, paroxysmal A-fib, type 2 diabetes mellitus presented to the hospital 06/25/2023 with weakness and melena. Hemoglobin recently 9.1 and on presentation was 8.3 and down trended to 6.7. GI consulted and patient transfused 1 unit packed red blood cells. She had EGD 06/26/2023 with erosive esophagitis, multiple gastric and multiple duodenal ulcers and was maintained on octreotide and PPI drips. Patient improved and tolerated advancing diet and hemoglobin was stable. Discussed with GI, can restart anticoagulation after 5 to 7 days from scope. Patient's hospitalization was complicated by ANALISA and CKD stage IV which improved with fluids and holding her Lasix. Of note she also had hypoglycemia after admission and her long-acting insulin was held as well as her Jardiance and glipizide was continued to be held. Glucose improved but still did not have high enough glucose to warrant resumption of all 3 agents on discharge so Jardiance was resumed would recommend monitoring glucose as patient may require additional agents or resumption of insulin as she improves. Additionally due to a fall patient had some acute on chronic right knee pain (family member later indicated that she had been evaluated for surgery but due to her A1c and medical comorbidities conservative management was being pursued) she had an x-ray which showed suspected osteochondral lesion of the medial femoral condyle and that an MRI would be useful. Discussed with Ortho on-call especially given patient's mental status at the time and inability to tolerate MRI, it was felt appropriate to follow-up on an outpatient basis. Overall patient improved and was stable for discharge to TCU, she had no acute complaints on day of discharge. Discharge instructions as follows: DISCHARGE INSTRUCTIONS PLEASE READ *Please take this with you to your next doctors appointment* -Please take Protonix 40 mg twice daily -Resume your Eliquis 07/03/2023. Given your stenting of your coronary artery was greater than 12 months ago you should only need to resume Eliquis and discontinue aspirin and Plavix. Would highly encouraged you follow-up closely with your bus person dishwasher upon discharge -No aspirin, ibuprofen, naproxen, or other non-steroidal anti-inflammatory drugs for 12 days. -You will need to follow-up with Dr. Harjit pichardo GI in his office upon discharge. Please call his office to schedule your hospital follow-up appointment (ph. [phone]) -Recommend resuming your metoprolol at 50 mg daily given relatively good control over your heart rate and blood pressure. Additionally would recommend holding your losartan until after your kidney function is rechecked and your blood pressure is monitored back on these other medications -Would recommend resuming Lasix at 40 mg daily for 3 days and then can increase to home dose of 40 twice daily -Would recommend lab work (CBC and BMP) to check your kidney function and blood counts in 2 to 3 days -You had a very low blood glucose and have not required your long-acting insulin. Would recommend holding this and your glipizide and resuming your Jardiance and monitoring your blood glucose as you may need further adjustments as you continue to clinically improve and your kidneys improve -Weigh yourself every day. A sudden weight gain can mean you are retaining fluid. Weigh yourself at the same time of day and in the same kind of clothes. Ideally, weigh yourself first thing in the morning after you empty your bladder, but before you eat breakfast. -Please call your physician if your weight goes up by more than 2 pounds in 1 day or 5 pounds in 1 week. This can be a sign that you are retaining more fluid than you should be. Clues to weight gain include checking your ankles for swelling, or noticing you are short of breath when you lie down -Please limit your sodium intake to less than 3 g/day. Here are tips: Limit canned, dried, packaged, and fast foods. Don't add salt to your food at the table. Season foods with herbs instead of salt when you cook. When you eat out, ask that the trust administrative assistant not add any salt to your dish. Don't eat fried or greasy foods. Be careful of bottled beverages. They can contain a lot of salt -Call 911 right away if you have: -Severe shortness of breath, such that you can't catch your breath even while resting -Severe chest pain that does not resolve with rest or nitroglycerin -[place], foamy mucus with cough and shortness of breath -An ongoing rapid or irregular heartbeat -Passing out or fainting -Stroke symptoms such as sudden numbness or weakness on one side of your face, arm, or leg or sudden confusion, trouble speaking or vision changes -Due to some cartilage breakdown in your right knee you can follow with an orthopedic doctor upon discharge -Please call your primary care provider's office upon discharge to schedule a hospital follow up within 1 week. -For any concerning signs or symptoms please call 911 or proceed to the nearest emergency department Physical Exam Narrative General: More alert and awake today, answering questions appropriately HEENT: Atraumatic, normocephalic Eyes: Anicteric, normal conjunctiva, extraocular movements grossly intact Neck: Supple Respiratory: Clear to auscultation bilaterally, normal respiratory effort Cardiovascular: Regular rate GI: Soft, nontender, nondistended Extremities: No edema, does have ecchymosis over right knee Musculoskeletal: Moving all extremities Neuro: No overt focal neurological deficits Skin: Multiple ecchymoses diffusely in various stages of healing Psych: Cooperative Weight / BMI Weight Weight: 57.6 kg Body Mass Index (BMI) 23.2 ABG / Lab / Microbiology Data 06/29/23 05:36 06/29/23 05:36 Laboratory: Laboratory Results - last 24 hr 06/28/23 16:13: POC Glucose 222 H 06/28/23 21:02: POC Glucose 206 H 06/29/23 05:36: WBC 7.4, RBC 2.80 L, Hgb 8.6 L, Hct 27.2 L, MCV 97.1, MCH 30.7, MCHC 31.6 L, RDW Std Deviation 70.0 H, RDW Coeff of Jesi 20.3 H, Plt Count 230, MPV 9.4, Immature Gran % (Auto) 0.500, Neut % (Auto) 74.6 H, Lymph % (Auto) 10.9 L, Todd % (Auto) 10.9 H, Eos % (Auto) 2.7, Baso % (Auto) 0.4, Absolute Neuts (auto) 5.5, Absolute Lymphs (auto) 0.81 L, Nucleated RBC % 0, Anisocytosis RARE, Sodium 139, Potassium 3.5, Chloride 110 H, Carbon Dioxide 22.0, Anion Gap 7, BUN 25 H, Creatinine 1.67 H, Estim Creat Clear Calc 18.42, Est GFR (MDRD) Af Amer 37 L, Est GFR (MDRD) Non-Af 31 L, BUN/Creatinine Ratio 15.0, Glucose 161 H, Calcium 7.8 L 06/29/23 06:35: POC Glucose 167 H Microbiology: Microbiology 06/25/23 15:55 Urine, Catheterized Urine Culture - Final Escherichia coli 06/25/23 15:55 Stool Stool Occult Blood (JOLEEN) - Final Occult Blood Positive D/C Instructions Discharge Diet: - (-DASH diet, 3000 mg sodium restriction, 2 L fluid restrict ion) Discharge Activity: - (Advance activity as tolerated) Meaningful Use Info Meaningful Use Diagnoses (Choose all that apply): None applicable Discharge Plan Admission Admit Date/Time: 06/25/23 16:57 Primary Reason for Your Visit: GI bleed Attending Provider: Sue Winters Primary Care Provider: Ventura Baron Consulting Providers: Rico Shepherd Instructions Patient Instructions: ED Upper GI Bleeding (Stable) Additional Instructions / Restrictions: DISCHARGE INSTRUCTIONS PLEASE READ *Please take this with you to your next doctors appointment* -Please take Protonix 40 mg twice daily -Resume your Eliquis 07/03/2023. Given your stenting of your coronary artery wa s greater than 12 months ago you should only need to resume Eliquis and discontinue aspirin and Plavix. Would highly encouraged you follow-up closely with your bus person dishwasher upon discharge - No aspirin, ibuprofen, naproxen, or other non-steroidal anti-inflammatory drugs for 12 days. -Recommend resuming your metoprolol at 50 mg daily given relatively good control over your heart rate and blood pressure. Additionally would recommend holding your losartan until after your kidney function is rechecked and your blood pressure is monitored back on these other medications -Would recommend resuming Lasix at 40 mg daily for 3 days and then can increase to home dose of 40 twice daily -Would recommend lab work (CBC and BMP) to check your kidney function and blood counts in 2 to 3 days -You had a very low blood glucose and have not required your long-acting insulin. Would recommend holding this and your glipizide and resuming your Jardiance and monitoring your blood glucose as you may need further adjustments as you continue to clinically improve and your kidneys improve -Weigh yourself every day. A sudden weight gain can mean you are retaining fluid. Weigh yourself at the same time of day and in the same kind of clothes. Ideally, weigh yourself first thing in the morning after you empty your bladder, but before you eat breakfast. -Please call your physician if your weight goes up by more than 2 pounds in 1 day or 5 pounds in 1 week. This can be a sign that you are retaining more fluid than you should be. Clues to weight gain include checking your ankles for swelling, or noticing you are short of breath when you lie down -Please limit your sodium intake to less than 3 g/day. Here are tips: Limit canned, dried, packaged, and fast foods. Don't add salt to your food at the table. Season foods with herbs instead of salt when you cook. When you eat out, ask that the trust administrative assistant not add any salt to your dish. Don't eat fried or greasy foods. Be careful of bottled beverages. They can contain a lot of salt -Call 911 right away if you have: -Severe shortness of breath, such that you can't catch your breath even while resting -Severe chest pain that does not resolve with rest or nitroglycerin -[place], foamy mucus with cough and shortness of breath -An ongoing rapid or irregular heartbeat -Passing out or fainting -Stroke symptoms such as sudden numbness or weakness on one side of your face, arm, or leg or sudden confusion, trouble speaking or vision changes -Due to some cartilage breakdown in your right knee you can follow with an orthopedic doctor upon discharge -Please call your primary care provider's office upon discharge to schedule a hospital follow up within 1 week. -For any concerning signs or symptoms please call 911 or proceed to the nearest emergency department Discharge Orders/Prescriptions Prescriptions: New pantoprazole [Protonix] 40 mg tablet,delayed release (DR/EC) 40 mg PO BID 30 Days Qty: 60 0RF Continued Jardiance 10 mg tablet 10 mg PO DAILY amlodipine 10 MG tablet 10 mg PO DAILY Patient Comments: BLOOD PRESSURE/HEART potassium chloride [Klor-Con M20] 20 mEq Tablet,Er Particles/Crystals 20 meq PO BIDCM Qty: 60 0RF ferrous sulfate 325 mg (65 mg iron) tablet 325 mg PO BID Qty: 60 0RF atorvastatin 10 mg tablet 10 mg PO DAILY polyethylene glycol 3350 [ClearLax] 17 gram/dose powder 17 g PO DAILY PRN (Reason: bowels) furosemide 40 mg tablet 40 mg PO BID Qty: 30 0RF Rx Instructions: Take 40 mg daily for 3 days then increase to home dose Changed metoprolol succinate 100 mg Tablet Extended Release 24 Hr 50 mg PO DAILY Qty: 30 0RF Held Eliquis 2.5 mg tablet 2.5 mg PO BID Hold Instructions: Resume on 07/03/23. losartan 50 mg tablet 50 mg PO BID Hold Instructions: Resume on 07/08/23. Discontinued aspirin 81 MG tablet,chewable 81 mg PO DAILY@0800 Patient Comments: heart health metoprolol succinate 25 mg tablet extended release 24 hr 25 mg PO QHS glipizide 5 mg tablet 5 mg PO DAILY clopidogrel 75 mg tablet 75 mg PO DAILY Patient Comments: TAKE 1 TABLET BY MOUTH ONCE DAILY insulin glargine [Lantus Solostar U-100 Insulin] 100 unit/mL (3 mL) insulin pen 15 unit SUBCUT DAILY Patient Comments: pt uses a pen at home leg cramps PO QHS Patient Comments: otc from [facility] Referrals / Follow Up: Ventura Baron DO [Primary Care Provider] - Rico Jung DO [Med Staff - Active Staff] - (Due to some cartilage breakdown in your right knee you can follow with an orthopedic doctor upon dis charge) Pernell Lombardi DO [Med Staff - Active Staff] - ( -You will need to follow-up with Dr. Lombardi with GI in his office upon discharge. Please call his office to schedule your hospital follow-up appointment (ph. [phone])) Disposition Disposition (needs filled in before D/C Order can be placed): [facility] Charges/Coding Visit Charges Inpatient E&M: 17328 Disch Hosp >30min
--- NOTE | 2023-06-29 13:24 | PHA.DC.MR.R ---
Pharmacy [facility] Med Reconciliation Pharmacy Service has performed discharge medication reconciliation for this patient. The patient's discharge medication list was reviewed for discrepancies and discrepancies were resolved. Medications at Discharge Home Medications amlodipine 10 mg tablet 10 mg PO DAILY BP 04/28/17 apixaban 2.5 mg tablet (Eliquis) 2.5 mg PO BID BLOOD THINNER 09/07/19 losartan 50 mg tablet 50 mg PO BID BP 06/19/22 ferrous sulfate 325 mg (65 mg iron) tablet 325 mg PO BID supplement #60 tabs 10/19/22 potassium chloride 20 mEq tablet,extended release(part/cryst) (Klor-Con M) 20 meq PO BIDCM supplement #60 tabs 10/19/22 empagliflozin 10 mg tablet (Jardiance) 10 mg PO DAILY diabetes 02/09/23 atorvastatin 10 mg tablet 10 mg PO DAILY cholestrol 06/19/23 polyethylene glycol 3350 17 gram/dose oral powder (ClearLax) 17 g PO DAILY PRN bowels 06/19/23 furosemide 40 mg tablet 40 mg PO BID diuretic #30 tabs 06/29/23 metoprolol succinate 100 mg tablet,extended release 24 hr 50 mg (1/2 x 100 mg) PO DAILY blood pressure #30 tabs 06/29/23 pantoprazole 40 mg tablet,delayed release (Protonix) 40 mg PO BID 30 days #60 tabs 06/29/23
[2023-06-29 14:00] LABS: Bedside Glucose 185 mg/dL (74-106)
--- NOTE | 2023-06-29 14:32 | CASEMGMT ---
JANEL called patient's son Chris and let him know patient will be going to TCU in the next hour to hour and a half per her RN. Plan: d/c to [facility] TCU under skilled level of care. Elisabeth MCMAHAN
[2023-06-29 14:42] VITALS: BP 123/60; PULSE 82; RESP 14; TEMP 37; O2SAT 99
--- NOTE | 2023-06-29 14:43 | NURSING ---
report called to Bonny in TCU
--- NOTE | 2023-06-29 15:57 | CHAPLAIN ---
Type of Pastoral Visit _x__ Initial Visit ___ Follow-up Visit ___ On-call Visit ___ General Patient Visit ___ Spiritual Assessment ___ Family Conference ___ Bereavement ___ Rapid Response ___ Code Blue ___ Other (describe below) Pastoral Care Referral From _x__ Patient ___ Family ___ Nurse ___ Physician ___ Used Car Make Ready Mechanic ___ Vacuum Cleaner Assembler ___ Other (describe below) Sacrament/Intervention _x__ Active listening ___ Anointing ___ Anabaptism ___ Bereavement ___ Communion ___ [place] exploration ___ ___ Life review _x__ Prayer ___ Reconciliation ___ Sacrament of Sick _x__ Supportive presence ___ Wedding ___ Other (describe below) Pastoral Comments patient has been seen many times in previous admissions; pt is asked if she fell due to visible bruises around her eyes and her arms; pt denies having fallen, says that she is fine, and cannot describe why she is in the hospital; pt does state that she will be going to SNF in the future but not sure where; pt does invite a prayer and expresses thanks for that and the visit
== END 2023-06-29 15:03 | disposition skilled nursing facility (03) | DRG 368 ==
LOC: ED 17:01 → PCU 17:17
PROVIDERS: Internal Medicine; Internal Medicine Gastroenterology; Admitting Provider Family Medicine; Emergency Provider Emergency Medicine; PCP Family Medicine; Visit Provider Internal Medicine
PROC: 0DJ08ZZ Inspection of Upper Intestinal Tract, Via Natural or Artificial Opening Endoscopic (ICD-10-PCS; CPT 43235; principal; 2023-06-26 12:10)
DX: K20.81 Other esophagitis with bleeding (principal); K25.4 Chronic or unspecified gastric ulcer with hemorrhage; K26.4 Chronic or unspecified duodenal ulcer with hemorrhage; I13.0 Hypertensive heart and chronic kidney disease with heart failure and stage 1 through stage 4 chronic kidney disease, or unspecified chronic kidney disease; D62 Acute posthemorrhagic anemia; I50.42 Chronic combined systolic (congestive) and diastolic (congestive) heart failure; N18.4 Chronic kidney disease, stage 4 (severe); E11.649 Type 2 diabetes mellitus with hypoglycemia without coma; I27.20 Pulmonary hypertension, unspecified; I95.9 Hypotension, unspecified; E11.22 Type 2 diabetes mellitus with diabetic chronic kidney disease; Z79.4 Long term (current) use of insulin; I48.0 Paroxysmal atrial fibrillation; D50.9 Iron deficiency anemia, unspecified; I25.5 Ischemic cardiomyopathy; I25.10 Atherosclerotic heart disease of native coronary artery without angina pectoris; E78.5 Hyperlipidemia, unspecified; K44.9 Diaphragmatic hernia without obstruction or gangrene; R15.9 Full incontinence of feces; Z95.2 Presence of prosthetic heart valve; Z79.01 Long term (current) use of anticoagulants; Z79.82 Long term (current) use of aspirin; Z95.5 Presence of coronary angioplasty implant and graft; Z79.899 Other long term (current) drug therapy
CPT/HCPCS: 36415; 71045; 73560; 80048; 80053; 81001; 82274; 82947; 82962; 83605; 85014; 85018; 85025; 86850; 86900; 86901; 86920; 87077; 87086; 87088; 87186; 88305; 88342; 93005; 97110; 97162; 97166; 97530; 97535; 99285; J7030; P9016; P9612; A4216; J2405; J3490

== ENCOUNTER 2023-06-29 15:13 | Inpatient (IN) | payer MEDICARE, OTHER, SELFPAY ==
[2023-06-29 15:33] VITALS: BP 141/62; PULSE 76; RESP 16; TEMP 36.2; O2SAT 98; BMI 23.3
[2023-06-29] MEDS: Potassium Chloride Oral Tablet 20 MEQ PO (16:48)
[2023-06-29] MEDS: Ferrous Sulfate 325 MG Tablet PO (16:49)
--- NOTE | 2023-06-29 19:25 | HP.PCM_ITS ---
HPI - General General Date of Admission: 06/29/23 Date of Service: 06/29/23 Chief Complaint: Here for rehabilitation. HPI Narrative 06/25/2023 PHUC AIKEN, is a 87 Female who presents to [facility] Emergency Department with weakness. Recent Hospitalization for falls, discharged home with home health care PT/OT. Failure to thrive symptoms, 2-3 episodes of bowel incontinence. 2 months ago. Needs placement, melena on exam, on Eliquis. Hemoglobin 8.3, IV fluids, IV Protonix given. GI recommended octreotide, ceftriaxone. 06/25/2023 Admit to Hospital. Octreotide, Pantoprazole, hold Eliquis, consult GI for GI bleed. Ceftriaxone for spontaneous bacterial peritonitis prophylaxis. 06/26/2023 Right knee pain. Transfuse 1 unit PRBC for hemoglobin 6.7. Hold aspirin, Hold plavix, Hold Eliquis for GI bleed. Hold Lasix, Hold Jardiance, give IV fluids for acute kidney injury. 06/27/2023 Feeling better, no BM's. EGD showed erosive esophagitis, gastric ulcers, duodenal ulcers. Hemoglobin 7.9. Hold aspirin, hold plavix, hold Eliquis. 06/28/23 Feeling slightly better. Pantoprazole, advance diet, iron for upper GI bleed with anemia. Positive 2.3 liters, consider diuresis. Consider Eliquis alone without aspirin, plavix. E. Coli urinary tract infection with Ceftriaxone for 5 days. 06/29/2023 Admit to TCU with debility, here for rehabilitation, strengthening, prior to discharge home alone. 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) Hyperlipidemia Hypertension associated with diabetes Hypoxia Ischemic cardiomyopathy Mitral annular calcification Nonrheumatic aortic (valve) stenosis Nonrheumatic mitral (valve) insufficiency Normocytic anemia Paroxysmal atrial fibrillation Renal artery stenosis Home Medications amlodipine 10 mg tablet 10 mg PO DAILY BP 04/28/17 [History Last Taken 06/18/22] apixaban 2.5 mg tablet (Eliquis) 2.5 mg PO BID BLOOD THINNER 09/07/19 [History Last Taken 06/18/22] losartan 50 mg tablet 50 mg PO BID BP 06/19/22 [History Last Taken 06/18/22] ferrous sulfate 325 mg (65 mg iron) tablet 325 mg PO BID supplement #60 tabs 10/19/22 [Rx Last Taken Unknown] potassium chloride 20 mEq tablet,extended release(part/cryst) (Klor-Con M) 20 meq PO BIDCM supplement #60 tabs 10/19/22 [Rx Last Taken Unknown] empagliflozin 10 mg tablet (Jardiance) 10 mg PO DAILY diabetes 02/09/23 [History Last Taken Unknown] atorvastatin 10 mg tablet 10 mg PO DAILY cholestrol 06/19/23 [History Last Taken Unknown] polyethylene glycol 3350 17 gram/dose oral powder (ClearLax) 17 g PO DAILY PRN bowels 06/19/23 [History Last Taken Unknown] furosemide 40 mg tablet 40 mg PO BID diuretic #30 tabs 06/29/23 [Rx Last Taken Unknown] metoprolol succinate 100 mg tablet,extended release 24 hr 50 mg (1/2 x 100 mg) PO DAILY blood pressure #30 tabs 06/29/23 [Rx Last Taken Unknown] pantoprazole 40 mg tablet,delayed release (Protonix) 40 mg PO BID GERD 30 days #60 tabs 06/29/23 [Rx Last Taken Unknown] Allergy/AdvReac Type Severity Reaction Status Date / Time No Known Allergies Allergy Verified 06/25/23 14:03 Family History Sister Asthma Breast cancer Hypertension Hyperlipidemia Melanoma Father , From old age per patient. Denies specific medical problems. No problems noted. Mother , From old age per patient. Denies specific medical problems. No problems noted. Surgical History History of appendectomy History of coronary angioplasty (09/18/21) History of left heart catheterization (04/2017) History of percutaneous transluminal coronary angioplasty (~02/02/22) S/P TAVR (transcatheter aortic valve replacement) Social History household members: none Smoking Status: Never smoker alcohol intake: never substance use type: does not use caffeine: Yes Type: coffee Number of servings: 1 ROS Constitutional Constitutional: Denies chills, fever(s) or weight gain ENT HEENT: Denies headache(s), nasal congestion or nasal discharge Cardiovascular Cardiovascular: Denies chest pain or palpitations Respiratory/Chest Respiratory/Chest: Denies cough, excessive phlegm production or shortness of breath with exertion Gastrointestinal Gastrointestinal: Denies abdominal pain, nausea or vomiting Genitourinary Genitourinary: Denies dysuria Musculoskeletal Musculoskeletal: Denies joint pain or joint swelling Integumentary Integumentary: Denies rash or wounds Neurologic Neurologic: Denies focal weakness, numbness or tingling Psychiatric Psychiatric: Denies anxiety, auditory hallucinations, depression, homicidal ideation or suicidal ideation Vital Signs Vital Signs Vital Signs: 06/29/23 15:33 Temperature 97.2 F L Temperature Source Temporal Pulse Rate 76 Respiratory Rate 16 Blood Pressure 141/62 H Blood Pressure Mean 88 Blood Pressure Source Monitor Blood Pressure Position Semi-Fowlers Blood Pressure Location Right Arm Pulse Ox 98 Oxygen Delivery Method Room Air Weight Weight: 57.924 kg Body Mass Index (BMI) 23.3 Physical Exam Const alert General Appearance: cooperative HEENT normocephalic Eyes PERRL and EOMs intact bilaterally Neck supple, no JVD and no carotid bruits Resp normal respiratory effort, normal air movement and clear to auscultation bilaterally Cardio regular rate and regular rhythm GI normal to inspection, nondistended, normoactive bowel sounds, non-tender and non-distended Extremity normal capillary refill General Extremity: Negative for edema Skin no rashes or lesions noted General Skin Exam: no breakdown Psych affect normal Appearance: appropriate Assessment & Plan Assessment/Plan (1) Debility: (2) Upper gastrointestinal bleed: (3) ANALISA (acute kidney injury): (4) Acute blood loss anemia: (5) Esophagitis: (6) Gastric ulcer: (7) Duodenal ulcer disease: (8) UTI (urinary tract infection): (9) Diabetes mellitus: QUALIFIERS: Diabetes mellitus type: type 2 (10) Chronic kidney disease, stage 3a: (11) Heart failure with preserved ejection fraction: (12) Atrial fibrillation: (13) Hypertension: (14) Hyperlipidemia: PLAN: Plan 87 year old female with below past medical history hospitalized for upper gastrointestinal bleed secondary to esophagitis, gastric ulcers, duodenal ulcers, complicated by acute blood loss anemia, acute kidney injury, urinary tract infection, admitted to TCU with debility, here for rehabilitation, strengthening, prior to discharge home alone. * Debility - PT/OT. * Cognition - ST. * Pain - Tylenol 1000mg q6 prn pain (1-10). * Bowel - Miralax 17gm daily prn, senna/colace 1 tablet bid, Magnesium citrate 300ml po daily prn. * Adult immunization - Administer pneumonia vaccine, covid vaccine, flu vaccine as appropriate. * DVT prophylaxis - on Eliquis. * Hypertension - Metoprolol succinate 50mg daily, Losartan 50mg bid, Amlodipine 10mg daily. * Atrial fibrillation - Metoprolol succinate 50mg daily, Eliquis 2.5mg bid. * Hyperlipidemia - Atorvastatin 10mg daily. * Diabetes Mellitus II - Jardiance 10mg daily. * Iron deficiency anemia - Ferrous sulfate 325mg bid. * Heart failure preserved ejection fraction - Metoprolol succinate 50mg daily, Losartan 50mg bid, Furosemide 80mg am, 40mg pm thru 07/02/2023, then Furosemide 40mg twice daily. * Gastric ulcer/Duodenal ulcers - Pantoprazole 40mg twice daily. * Hypokalemia - KCL ER 20meq bidcm.
[2023-06-29] MEDS: Pantoprazole Sodium 40 MG Tablet PO (20:58)
[2023-06-29] MEDS: Senna/Docusate Sodium 1 Tablet PO (20:59)
--- NOTE | 2023-06-30 02:30 | NURSING ---
PT was observed walking into hallway pushing laundry cart. When asking patient what she was doing she replied with Im trying to get to the restroom. Pt was assisted to bathroom, and assisted back to bed. Personal alarm was placed on patients bed and in patients chair. Pt was given call light and pt re demonstrated how to use it.
[2023-06-30 05:39] LABS: Absolute Lymphocyte Count 0.76 X10^3/uL (0.83-4.51); Basophil# 0.03 X10^3/uL; Basophil% 0.4 % (0-1); Eosinophil# 0.23 X10^3/uL; Eosinophils% 2.9 % (0-5); Hematocrit 28.4 % (37-47); Hemoglobin 9.1 g/dL (12.0-15.0); Lymphocyte # 0.76 X10^3/ul (0.83-4.51); Lymphocyte % 9.6 % (19-41); Mean Corpuscular Hgb 31.2 pg (27.0-32.0); Mean Corpuscular Volume 97.3 fL (81-99); Mean Platelet Vol. 9.1 fl (6.2-12.0); Monocyte# 0.85 X10^3/uL; Monocyte% 10.7 % (0-10); NRBC Flagged by Analyzer 0 % (0-5); Neutrophil # 6.02 X10^3/uL (2.7-7.7); POSITIVE MORPHOLOGY YES; Platelet Count 225 K/mm3 (150-450); RBC Distribution Width SD 69.5 fl (35.1-43.9); Red Blood Count 2.92 M/mm3 (4.2-5.4); White Blood Count 7.9 K/mm3 (4.4-11.0)
[2023-06-30 05:46] LABS: Differential Indicated SCAN CRITERIA MET
[2023-06-30 06:00] VITALS: BMI 23.8
[2023-06-30 06:08] LABS: Anion Gap 7 (5-15); BUN 21 mg/dL (7-18); BUN/Creat Ratio 14.1 RATIO (10-20); Calcium,Total 7.9 mg/dL (8.5-10.1); Chloride 110 mmol/L (98-107); Creatinine, Serum 1.49 mg/dL (0.55-1.02); EST Glomerular Filtration Rate 35 mL/min (>60); Est Glom Filt Rate - Afr Amer 42 mL/min (>60); Estimated Creatinine Clearance 20.64 ml/min; Glucose 140 mg/dL (74-106); Potassium 3.7 mmol/L (3.5-5.1); Sodium Level 141 mmol/L (136-145)
[2023-06-30 06:50] LABS: Bedside Glucose 134 mg/dL (74-106)
[2023-06-30 06:59] LABS: Anisocytosis 1+; Differential Comment SCANNED; Hypochromasia 1+
[2023-06-30] MEDS: Acetaminophen 500 MG Tablet 1000 MG PO (07:58)
[2023-06-30] MEDS: Polyethylene Glycol 3350 17 GM PACKET PO (07:59)
[2023-06-30] MEDS: amLODIPine 10 MG Tablet PO (08:02)
[2023-06-30] MEDS: Ferrous Sulfate 325 MG Tablet PO ×2 (08:02→17:25)
[2023-06-30] MEDS: Pantoprazole Sodium 40 MG Tablet PO ×2 (08:02→20:00)
[2023-06-30] MEDS: Potassium Chloride Oral Tablet 20 MEQ PO ×2 (08:02→17:25)
[2023-06-30] MEDS: Empagliflozin 10 MG Tablet PO (08:02)
[2023-06-30 08:03] VITALS: BP 124/55; PULSE 86
[2023-06-30] MEDS: Atorvastatin Calcium 10 MG Tablet PO (08:03)
[2023-06-30] MEDS: Metoprolol(XL)Succ 100 MG Tablet 50 MG PO (08:03)
[2023-06-30] MEDS: Furosemide 40 MG Tablet PO (08:03)
[2023-06-30] MEDS: Senna/Docusate Sodium 1 Tablet PO ×2 (08:06→20:00)
[2023-06-30 08:16] VITALS: BP 124/55; PULSE 86
--- NOTE | 2023-06-30 09:32 | PCM.PN.DRR ---
Documented by User: Arturo Calloway 06/30/23 09:42 TCU RX Drug Regimen Review Subjective/Objective Subjective/Objective: Subjective: 87 year old female with below past medical history hospitalized for upper gastrointestinal bleed secondary to esophagitis, gastric ulcers, duodenal ulcers, complicated by acute blood loss anemia, acute kidney injury, urinary tract infection, admitted to TCU with debility, here for rehabilitation, strengthening, prior to discharge home alone. Objective: Allergies No Known Allergies Allergy (Verified 06/25/23 14:03) Current Medications Generic Name Dose Route Start Last Admin Trade Name Freq PRN Reason Stop Dose Admin Acetaminophen 1,000 mg 06/29/23 19:44 06/30/23 07:58 Acetaminophen 500 Mg Tablet PO 1,000 mg Q6H PRN PRN Administration Pain Score 1-10 Amlodipine Besylate 10 mg 06/30/23 10:00 06/30/23 08:02 Amlodipine 10 Mg Tablet PO 10 mg DAILY ALEJANDRO Administration Protocol Apixaban 2.5 mg 07/03/23 10:00 Apixaban 2.5 Mg Tablet ([facility]) PO BID ALEJANDRO Atorvastatin Calcium 10 mg 06/30/23 10:00 06/30/23 08:03 Atorvastatin Calcium 10 Mg Tablet PO 10 mg DAILY ALEJANDRO Administration Calamine/Phenol 1 applic 06/30/23 10:00 Menthol/Lanolin/Calamine/Znox 113 Gm Tube TOPICAL BID ALEJANDRO Protocol Empagliflozin 10 mg 06/30/23 10:00 06/30/23 08:02 Empagliflozin 10 Mg Tablet PO 10 mg DAILY ALEJANDRO Administration Ferrous Sulfate 325 mg 06/29/23 17:00 06/30/23 08:02 Ferrous Sulfate 325 Mg Tablet PO 325 mg BIDCM ALEJANDRO Administration Furosemide 40 mg 06/30/23 10:00 06/30/23 08:03 Furosemide 40 Mg Tablet PO 07/02/23 10:01 40 mg DAILY ALEJANDRO Administration Protocol Furosemide 40 mg 07/03/23 10:00 Furosemide 40 Mg Tablet PO BID ALEJANDRO Losartan Potassium 50 mg 07/08/23 10:00 Losartan Potassium 50 Mg Tablet PO BID ALEJANDRO Protocol Magnesium Citrate 300 ml 06/29/23 19:44 Magnesium Citrate 300 Ml PO DAILY PRN Constipation Metoprolol Succinate 50 mg 06/30/23 10:00 06/30/23 08:03 Metoprolol(Xl)Succ 100 Mg Tablet PO 50 mg DAILY ALEJANDRO Administration Protocol Pantoprazole Sodium 40 mg 06/29/23 22:00 06/30/23 08:02 Pantoprazole Sodium 40 Mg Tablet PO 40 mg BID ALEJANDRO Administration Polyethylene Glycol 17 gm 06/29/23 15:38 06/30/23 07:59 Polyethylene Glycol 3350 17 Gm Packet PO 17 gm DAILY PRN Administration bowels Potassium Chloride 20 meq 06/29/23 17:00 06/30/23 08:02 Potassium Chloride Oral Tablet 20 Meq PO 20 meq BIDCM ALEJANDRO Administration Senna/Docusate Sodium 1 tablet 06/29/23 22:00 06/30/23 08:06 Senna/Docusate Sodium 1 Tablet PO 1 tablet BID ALEJANDRO Administration Sodium Chloride 10 - 40 ml 06/29/23 15:36 0.9% Saline Lock 10 Ml Syringe IV UD PRN SALINE FLUSH Tuberculin PPD 0.1 ml 07/07/23 10:00 Tuberculin,Purif.Prot.Deriv. 50 Tu/Ml Vial ID 07/07/23 10:01 X1 ONE Tuberculin PPD 0.1 ml 06/30/23 10:00 Tuberculin,Purif.Prot.Deriv. 50 Tu/Ml Vial ID 06/30/23 10:01 X1 ONE Problem List (Updated 06/29/23 @ 19:[address] Davide Chavira MD) Hypertension (Chronic) Atrial fibrillation (Acute) Heart failure with preserved ejection fraction (Acute) Chronic kidney disease, stage 3a (Chronic) Esophagitis (Acute) Acute blood loss anemia (Acute) Upper gastrointestinal bleed (Acute) Debility (Acute) Duodenal ulcer disease (Acute) Gastric ulcer (Acute) ANALISA (acute kidney injury) (Acute) Diabetes mellitus (Acute) UTI (urinary tract infection) (Acute) Hyperlipidemia (Chronic) Vital Signs Temp Pulse Resp BP Pulse Ox O2 Del Method 97.2 F L 86 16 124/55 H 98 Room Air 06/29/23 15:33 06/30/23 08:16 06/29/23 15:33 06/30/23 08:16 06/29/23 15:33 06/29/23 22:00 Oxygen Delivery Method Room Air Weight: 57.924 kg Body Mass Index (BMI) 23.3 Sodium 141 mmol/L (136-145) 06/30/23 05:14 Potassium 3.7 mmol/L (3.5-5.1) 06/30/23 05:14 Chloride 110 mmol/L (98-107) H 06/30/23 05:14 Carbon Dioxide 24.0 mmol/L (21.0-32.0) 06/30/23 05:14 Anion Gap 7 (5-15) 06/30/23 05:14 BUN 21 mg/dL (7-18) H 06/30/23 05:14 Creatinine 1.49 mg/dL (0.55-1.02) H 06/30/23 05:14 Est GFR (MDRD) Af Amer 42 mL/min (>60) L 06/30/23 05:14 Est GFR (MDRD) Non-Af 35 mL/min (>60) L 06/30/23 05:14 BUN/Creatinine Ratio 14.1 RATIO (10-20) 06/30/23 05:14 Glucose 140 mg/dL (74-106) H 06/30/23 05:14 Assessment/Plan: 1. Pain- Tylenol 1000 mg PO Q6H as needed for pain. Monitor AST/ALT (AST was 10 U/L and ALT was 10 U/L on 06/26/23), as needed medication usage, and pain levels. Patient has needed 2 doses during this admission. 2. Bowel- Polyethylene glycol 17 g PO daily as needed for constipation, senna/docusate 1 tablet PO twice a day, and Magnesium citrate 300 ml PO daily as needed for constipation. Monitor for constipation and diarrhea and monitor for as needed medication usage. Patient has needed 0 doses of magnesium citrate and 1 dose of polyethylene glycol. The patient's last documented bowel movement was on 06/26/23. 3. Gastric ulcer/duodenal ulcer- Pantoprazole 40 mg PO twice a day. Monitor for signs of constipation, GI upset, and increased triglycerides, as well as diarrhea that could indicate clostridium difficile infection. 4. Iron deficiency anemia- Ferrous sulfate 325 mg PO twice a day. Please monitor hemoglobin levels (Hgb = 9.1 g/dL on 06/30/23), for GI upset and iron levels (iron = 57 g/dL on ). 5. Atrial Fibrillation- Metoprolol Succinate 50 mg PO daily and Eliquis 2.5 mg PO twice a day. Monitor patients heart rate (64-94 BPM during this admission), blood pressure (124/ 55 on 06/30/23), s/s of stroke, signs of dizziness, and signs of bleeding and bruising, hemoglobin levels (Hgb = 9.1 g/dL on 06/30/23) and platelet counts (Plt =225 K/mm3 on 06/30/23). 6. Heart failure preserved ejection fraction/Hypertension- Metoprolol succinate 50 mg PO daily, Losartan 50 mg PO twice a day, Amlodipine 10 mg PO daily, Furosemide 40 mg daily until 07/02/23, then furosemide 40 mg twice daily.?Monitor patients heart rate (64-94 BPM during this admission), blood pressure (124/ 55 on 06/30/23), signs of dizziness, edema in the extremities, and electrolyte imbalances, as well as for fatigue, and renal function (serum creatinine = 1.49 mg/dL with creatinine clearance ~ 21 mL/min on 06/30/23). 7. Hyperlipidemia- Atorvastatin 10 mg PO daily.?Monitor AST/ALT (AST was 10 U/L and ALT was 10 U/L on 06/26/23), signs of myalgia, and lipid panel (LDL was 63 mg/dl and total cholesterol was 133 mg/dl on 09/16/22). 8. Diabetes Mellitus II- Jardiance 10 mg PO daily. Monitor blood glucose (Range of 292-80 mg/dL during this admission)? and signs of urinary tract infection, as well as renal function (serum creatinine = 1.49 mg/dL with creatinine clearance ~ 21 mL/min on 06/30/23). 9. Hypokalemia- KCL ER 20 mEq PO twice a day. Monitor potassium levels (3.7 mmol/L on 06/30/23), and for GI distress with potassium chloride administration. 10. skin irritation: calmoseptine 1 application topically BID. Please continue to monitor for skin irritation and integrity. Assessment/Plan for indications treated with psychotropic medications: NA Medical chart and medication regimen reviewed. The following medication irregularities or issues were identified: NA Date Date of Note:: 06/30/23 Documented by User: Dr. Davide Chavira MD 06/30/23 09:54 TCU RX Drug Regimen Review Provider Comments Provider responsibility Provider Comments to Recommendations by Pharmacy: Agree
[2023-06-30] MEDS: Tuberculin,Purif.prot.deriv. 50 TU/ML Vial 0.1 ML ID (10:41)
[2023-06-30] MEDS: Menthol/Lanolin/Calamine/Znox 113 GM Tube 1 APPLIC TOPICAL ×2 (10:43→20:00)
[2023-06-30 10:45] VITALS: PULSE 78; RESP 18; O2SAT 97
[2023-06-30] MEDS: 0.9% Saline Lock 10 ML Syringe IV (10:45)
--- NOTE | 2023-06-30 11:00 | NURSING ---
PT HAS NOT HAD A BM IN 4 DAYS. PRN MIRALAX AND PRUNE JUICE GIVEN. WILL MONITOR.
[2023-06-30 14:12] VITALS: BP 111/55; PULSE 85; RESP 18; TEMP 36.2; O2SAT 98
[2023-06-30 15:37] VITALS: BMI 23.8
[2023-06-30] MEDS: Miconazole Nitrate 43 GM Bottle 1 APPLIC TOPICAL (20:00)
[2023-07-01 06:27] LABS: Bedside Glucose 168 mg/dL (74-106)
[2023-07-01] MEDS: Ferrous Sulfate 325 MG Tablet PO ×2 (08:57→16:32)
[2023-07-01] MEDS: Potassium Chloride Oral Tablet 20 MEQ PO ×2 (08:57→16:32)
[2023-07-01 09:00] VITALS: PULSE 80
[2023-07-01] MEDS: amLODIPine 10 MG Tablet PO (09:00)
[2023-07-01] MEDS: Pantoprazole Sodium 40 MG Tablet PO ×2 (09:00→20:45)
[2023-07-01] MEDS: Atorvastatin Calcium 10 MG Tablet PO (09:00)
[2023-07-01] MEDS: Metoprolol(XL)Succ 100 MG Tablet 50 MG PO (09:00)
[2023-07-01] MEDS: Furosemide 40 MG Tablet PO (09:00)
[2023-07-01] MEDS: Senna/Docusate Sodium 1 Tablet PO ×2 (09:00→20:45)
[2023-07-01] MEDS: Empagliflozin 10 MG Tablet PO (09:00)
[2023-07-01] MEDS: Miconazole Nitrate 43 GM Bottle 1 APPLIC TOPICAL ×2 (09:03→20:44)
[2023-07-01] MEDS: Menthol/Lanolin/Calamine/Znox 113 GM Tube 1 APPLIC TOPICAL ×2 (09:03→20:44)
--- NOTE | 2023-07-01 10:16 | CASEMGMT ---
Social Work Met with patient to complete initial assessment. Introduce self and role. Verified/updated contacts. Confirmed full code. Educated to Medicare benefit and copay coverage. Pt's goal is to return home alone. SW will continue to follow for safe discharge planning. Yuliya Valdivia, INVERTED BLOCK OPERATOR SODA TESTER
--- NOTE | 2023-07-01 12:39 | NURSING ---
Risk Control Officer Note; Activity Asset: Osmani Telles is independent in her choice of daily activities. She enjoys reading, spending time w/family she watches tv and will listen to music time to time at home. She enjoys talking w/people. Koki will need reminders of group activities and staff will respect her right to say no however will encourage group for extra social mental and physical well-being. She welcomes visit from the drum operator and therapy dog when available.
[2023-07-01 16:00] VITALS: BP 111/51; PULSE 84; RESP 16; TEMP 36; O2SAT 99
[2023-07-01] MEDS: Glucerna Shake 120 ML LIQUID PO (16:33)
[2023-07-01 20:52] VITALS: O2SAT 96
[2023-07-02 06:04] LABS: Hematocrit 28.7 % (37-47); Hemoglobin 9.2 g/dL (12.0-15.0)
[2023-07-02 06:08] VITALS: O2SAT 95
[2023-07-02 06:36] LABS: Bedside Glucose 153 mg/dL (74-106)
[2023-07-02] MEDS: Ferrous Sulfate 325 MG Tablet PO ×2 (09:07→16:48)
[2023-07-02] MEDS: Glucerna Shake 120 ML LIQUID PO ×2 (09:07→16:47)
[2023-07-02] MEDS: Potassium Chloride Oral Tablet 20 MEQ PO ×2 (09:07→16:48)
[2023-07-02] MEDS: Senna/Docusate Sodium 1 Tablet PO ×2 (09:08→20:40)
[2023-07-02] MEDS: Pantoprazole Sodium 40 MG Tablet PO ×2 (09:08→20:40)
[2023-07-02] MEDS: amLODIPine 10 MG Tablet PO (09:08)
[2023-07-02] MEDS: Atorvastatin Calcium 10 MG Tablet PO (09:09)
[2023-07-02] MEDS: Furosemide 40 MG Tablet PO (09:09)
[2023-07-02] MEDS: Empagliflozin 10 MG Tablet PO (09:09)
[2023-07-02] MEDS: Menthol/Lanolin/Calamine/Znox 113 GM Tube 1 APPLIC TOPICAL ×2 (09:10→20:42)
[2023-07-02] MEDS: Miconazole Nitrate 43 GM Bottle 1 APPLIC TOPICAL ×2 (09:10→20:42)
[2023-07-02 09:24] VITALS: BP 107/57; PULSE 87
[2023-07-02] MEDS: Metoprolol(XL)Succ 100 MG Tablet 50 MG PO (09:24)
[2023-07-02 14:13] VITALS: BP 108/44; PULSE 79; RESP 16; TEMP 36.6; O2SAT 100
[2023-07-02] MEDS: 0.9% Saline Lock 10 ML Syringe IV (18:42)
[2023-07-02] MEDS: MELATONIN 3 MG TABLET PO (20:40)
[2023-07-03 05:34] LABS: Hematocrit 28.6 % (37-47); Hemoglobin 8.9 g/dL (12.0-15.0)
[2023-07-03 06:00] VITALS: BMI 23.3
[2023-07-03 06:29] LABS: Bedside Glucose 146 mg/dL (74-106)
[2023-07-03 09:50] VITALS: BP 107/50; PULSE 72; RESP 17; TEMP 36.6; O2SAT 97
[2023-07-03] MEDS: APIXABAN 2.5 MG TABLET (WCH) PO ×2 (09:52→21:10)
[2023-07-03] MEDS: Ferrous Sulfate 325 MG Tablet PO ×2 (09:52→18:35)
[2023-07-03] MEDS: Potassium Chloride Oral Tablet 20 MEQ PO ×2 (09:52→18:35)
[2023-07-03] MEDS: Empagliflozin 10 MG Tablet PO (09:53)
[2023-07-03] MEDS: Atorvastatin Calcium 10 MG Tablet PO (09:53)
[2023-07-03] MEDS: amLODIPine 10 MG Tablet PO (09:53)
[2023-07-03 09:54] VITALS: PULSE 72
[2023-07-03] MEDS: Metoprolol(XL)Succ 100 MG Tablet 50 MG PO (09:54)
[2023-07-03] MEDS: Pantoprazole Sodium 40 MG Tablet PO ×2 (09:54→21:10)
[2023-07-03] MEDS: Menthol/Lanolin/Calamine/Znox 113 GM Tube 1 APPLIC TOPICAL ×2 (09:56→21:10)
[2023-07-03] MEDS: Furosemide 40 MG Tablet PO ×2 (09:56→21:10)
[2023-07-03] MEDS: Miconazole Nitrate 43 GM Bottle 1 APPLIC TOPICAL ×2 (09:57→21:10)
[2023-07-03] MEDS: Glucerna Shake 120 ML LIQUID PO (18:35)
[2023-07-03 20:40] VITALS: PULSE 70; RESP 16; O2SAT 94
[2023-07-03] MEDS: MELATONIN 3 MG TABLET PO (21:10)
[2023-07-03] MEDS: Senna/Docusate Sodium 1 Tablet PO (21:10)
[2023-07-03] MEDS: 0.9% Saline Lock 10 ML Syringe IV (21:14)
[2023-07-04 05:37] VITALS: PULSE 78; RESP 18; O2SAT 93
[2023-07-04 06:47] LABS: Bedside Glucose 176 mg/dL (74-106)
[2023-07-04 07:48] LABS: Hematocrit 30.8 % (37-47); Hemoglobin 9.7 g/dL (12.0-15.0)
[2023-07-04] MEDS: Potassium Chloride Oral Tablet 20 MEQ PO ×2 (09:06→17:24)
[2023-07-04] MEDS: Ferrous Sulfate 325 MG Tablet PO ×2 (09:06→17:24)
[2023-07-04] MEDS: APIXABAN 2.5 MG TABLET (WCH) PO ×2 (09:07→21:09)
[2023-07-04] MEDS: Empagliflozin 10 MG Tablet PO (09:08)
[2023-07-04] MEDS: Senna/Docusate Sodium 1 Tablet PO ×2 (09:09→21:08)
[2023-07-04] MEDS: Atorvastatin Calcium 10 MG Tablet PO (09:09)
[2023-07-04] MEDS: Pantoprazole Sodium 40 MG Tablet PO ×2 (09:09→21:09)
[2023-07-04 09:15] VITALS: BP 104/46; PULSE 84
[2023-07-04] MEDS: Metoprolol(XL)Succ 100 MG Tablet 50 MG PO (09:15)
[2023-07-04] MEDS: Glucerna Shake 120 ML LIQUID PO ×3 (09:20→17:23)
[2023-07-04] MEDS: Menthol/Lanolin/Calamine/Znox 113 GM Tube 1 APPLIC TOPICAL ×2 (09:28→21:12)
[2023-07-04] MEDS: Miconazole Nitrate 43 GM Bottle 1 APPLIC TOPICAL ×2 (09:29→21:11)
[2023-07-04 09:30] VITALS: BP 104/46; PULSE 84
--- NOTE | 2023-07-04 09:33 | NURSING ---
PT WEDDING RINGS ARE TO LOSE AND READY TO FALL OFF. TOOK RINGS AND PUT THEM IN A DENTURE CUP AND PLACED IN MED BOX. EXPLAINED TO PT WHY I WAS DOING IT AND AFRAID SHE WOULD LOSE THEM. PT STATED SHE UNDER STOOD AND AGREED. TOLD PT IF SHE WANTS WE CAN GIVE TO ONE OF HER SONS WHEN THEY COME IN. PT STATED OK. RN AWARE
[2023-07-04] MEDS: 0.9% Saline Lock 10 ML Syringe IV (11:10)
[2023-07-04] MEDS: Furosemide 40 MG Tablet PO ×2 (11:14→21:09)
[2023-07-04] MEDS: amLODIPine 10 MG Tablet PO (11:15)
[2023-07-04 11:17] VITALS: BP 115/58
[2023-07-04 15:27] VITALS: BP 99/51; PULSE 81; RESP 16; TEMP 36.4; O2SAT 100
--- NOTE | 2023-07-04 18:07 | NURSING ---
PT HAD THIS NURSE GIVE HER WEDDING RINGS TO HER SON SANIYA AND DAUGHTER IN LAW TODAY.
[2023-07-04] MEDS: MELATONIN 3 MG TABLET PO (21:09)
[2023-07-05 05:18] LABS: Hematocrit 30.2 % (37-47); Hemoglobin 9.6 g/dL (12.0-15.0)
[2023-07-05 06:00] VITALS: BMI 22.4
[2023-07-05 06:24] LABS: Bedside Glucose 189 mg/dL (74-106)
[2023-07-05] MEDS: Glucerna Shake 120 ML LIQUID PO (07:54)
[2023-07-05] MEDS: Miconazole Nitrate 43 GM Bottle 1 APPLIC TOPICAL ×2 (07:57→21:59)
[2023-07-05] MEDS: Menthol/Lanolin/Calamine/Znox 113 GM Tube 1 APPLIC TOPICAL ×2 (07:57→21:59)
[2023-07-05] MEDS: Empagliflozin 10 MG Tablet PO (07:58)
[2023-07-05] MEDS: APIXABAN 2.5 MG TABLET (WCH) PO ×2 (07:58→21:56)
[2023-07-05 07:59] VITALS: BP 93/71; PULSE 76
[2023-07-05] MEDS: Metoprolol(XL)Succ 100 MG Tablet 50 MG PO (07:59)
[2023-07-05] MEDS: Atorvastatin Calcium 10 MG Tablet PO (07:59)
[2023-07-05] MEDS: Pantoprazole Sodium 40 MG Tablet PO ×2 (07:59→21:56)
[2023-07-05] MEDS: Potassium Chloride Oral Tablet 20 MEQ PO ×2 (08:00→17:15)
[2023-07-05] MEDS: Ferrous Sulfate 325 MG Tablet PO (08:00)
[2023-07-05 08:06] VITALS: BP 93/71; PULSE 76
[2023-07-05 10:30] VITALS: PULSE 80; RESP 16; O2SAT 96
[2023-07-05] MEDS: Iron Polysaccharide Complex 150 MG CAPSULE PO ×2 (10:36→21:56)
[2023-07-05] MEDS: amLODIPine 10 MG Tablet PO (10:37)
[2023-07-05] MEDS: Furosemide 40 MG Tablet PO ×2 (10:37→21:56)
[2023-07-05] MEDS: 0.9% Saline Lock 10 ML Syringe IV (10:49)
[2023-07-05 10:53] VITALS: BP 115/51; PULSE 82
--- NOTE | 2023-07-05 15:46 | NURSING ---
HEARD SAND SCREENER YELL FOR HELP. RN AND THIS NURSE TO ROOM AND FOUND PARALEGAL SUPERVISOR HOLDING UP PT SO SHE WOULDN'T FALL. GOT PT IN RECLINER. VITALS DONE,WNL. ASKED WHAT HAPPENED. PARALEGAL SUPERVISOR AND PT STATED PT FELT DIZZY AFTER WALKING HER FROM BATHROOM TO SCALE. FAMILY PRESENT. WILL CONTINUE TO MONITOR.
[2023-07-05 16:00] VITALS: BP 143/67; PULSE 90; RESP 17; TEMP 36.4; O2SAT 96
[2023-07-05] MEDS: Ascorbic Acid 500 MG Tablet PO (17:15)
--- NOTE | 2023-07-05 18:30 | NURSING ---
UPDATED SON ON THE MRI RESULTS ON PT RT KNEE.
[2023-07-05] MEDS: MELATONIN 3 MG TABLET PO (21:56)
[2023-07-06 05:53] LABS: Hematocrit 30.2 % (37-47); Hemoglobin 9.6 g/dL (12.0-15.0)
[2023-07-06 06:00] VITALS: BMI 22.7
[2023-07-06 06:10] LABS: Bedside Glucose 193 mg/dL (74-106)
--- NOTE | 2023-07-06 09:10 | NURSING ---
Sweetbread Trimmer Note; MDS for 07/06/2023 Complete
[2023-07-06] MEDS: Glucerna Shake 120 ML LIQUID PO ×3 (09:49→17:02)
[2023-07-06] MEDS: Ascorbic Acid 500 MG Tablet PO ×2 (09:50→17:02)
[2023-07-06] MEDS: Menthol/Lanolin/Calamine/Znox 113 GM Tube 1 APPLIC TOPICAL ×2 (09:50→21:30)
[2023-07-06] MEDS: Potassium Chloride Oral Tablet 20 MEQ PO ×2 (09:50→17:02)
[2023-07-06] MEDS: Empagliflozin 10 MG Tablet PO (09:51)
[2023-07-06] MEDS: Iron Polysaccharide Complex 150 MG CAPSULE PO ×2 (09:51→21:27)
[2023-07-06] MEDS: APIXABAN 2.5 MG TABLET (WCH) PO ×2 (09:51→21:29)
[2023-07-06] MEDS: Miconazole Nitrate 43 GM Bottle 1 APPLIC TOPICAL ×2 (09:51→21:30)
[2023-07-06 09:52] VITALS: BP 108/52; PULSE 83
[2023-07-06] MEDS: Atorvastatin Calcium 10 MG Tablet PO (09:52)
[2023-07-06] MEDS: Metoprolol(XL)Succ 100 MG Tablet 50 MG PO (09:52)
[2023-07-06] MEDS: Furosemide 40 MG Tablet PO ×2 (09:52→21:28)
[2023-07-06] MEDS: amLODIPine 10 MG Tablet PO (09:52)
[2023-07-06] MEDS: Pantoprazole Sodium 40 MG Tablet PO ×2 (09:53→21:27)
--- NOTE | 2023-07-06 11:00 | NURSING ---
Offered covid vaccine, VIS provided. Patient refuses at this time.
--- NOTE | 2023-07-06 12:37 | NURSING ---
[facility] appt made. Son Chris updated. He thinks family will be able to provide transport. Updated him that note left for Dr. Chavira to review MRI results with him.
--- NOTE | 2023-07-06 13:17 | CASEMGMT ---
Social Work BIMS (05/31) and PHQ-2 () completed for MDS assessment. Yuliya Valdivia MSW MICROBIOLOGICAL LABORATORY TECHNICIAN
[2023-07-06 14:50] VITALS: BP 106/50; PULSE 87; RESP 16; TEMP 36.3; O2SAT 96
[2023-07-06 14:57] VITALS: BP 106/50; PULSE 87; RESP 16; TEMP 36.3; O2SAT 96
[2023-07-06] MEDS: 0.9% Saline Lock 10 ML Syringe IV (15:02)
[2023-07-06] MEDS: MELATONIN 3 MG TABLET PO (21:27)
[2023-07-06] MEDS: Senna/Docusate Sodium 1 Tablet PO (21:27)
[2023-07-06 21:31] VITALS: BP 117/62; PULSE 85
[2023-07-07 06:00] VITALS: BMI 22.7
[2023-07-07 06:00] LABS: Absolute Lymphocyte Count 1.24 X10^3/uL (0.83-4.51); Absolute Neutrophil Count 4.1 X10^3/uL (2.0-7.7); Basophil# 0.04 X10^3/uL; Basophil% 0.6 % (0-1); Eosinophil# 0.25 X10^3/uL; Eosinophils% 3.9 % (0-5); Hematocrit 31.4 % (37-47); Lymphocyte # 1.24 X10^3/ul (0.83-4.51); Lymphocyte % 19.4 % (19-41); Mean Corp Hgb Conc 31.8 g/dL (32-36); Mean Corpuscular Hgb 30.5 pg (27.0-32.0); Mean Corpuscular Volume 95.7 fL (81-99); Mean Platelet Vol. 9.6 fl (6.2-12.0); Monocyte# 0.76 X10^3/uL; Monocyte% 11.9 % (0-10); NRBC Flagged by Analyzer 0 % (0-5); Neutrophil # 4.07 X10^3/uL (2.7-7.7); Neutrophil % 63.7 % (47-70); POSITIVE MORPHOLOGY YES; Platelet Count 224 K/mm3 (150-450); RBC Distribution Width CV 18.7 % (11.6-14.6); RBC Distribution Width SD 65.4 fl (35.1-43.9); Red Blood Count 3.28 M/mm3 (4.2-5.4); White Blood Count 6.4 K/mm3 (4.4-11.0)
[2023-07-07 06:13] LABS: Differential Indicated SCAN CRITERIA MET
[2023-07-07 06:26] LABS: Bedside Glucose 219 mg/dL (74-106)
[2023-07-07 06:38] LABS: Anion Gap 6 (5-15); BUN 31 mg/dL (7-18); BUN/Creat Ratio 14.8 RATIO (10-20); Calcium,Total 8.6 mg/dL (8.5-10.1); Chloride 101 mmol/L (98-107); Creatinine, Serum 2.09 mg/dL (0.55-1.02); EST Glomerular Filtration Rate 24 mL/min (>60); Est Glom Filt Rate - Afr Amer 29 mL/min (>60); Estimated Creatinine Clearance 14.72 ml/min; Glucose 248 mg/dL (74-106); Potassium 3.3 mmol/L (3.5-5.1); Sodium Level 137 mmol/L (136-145)
[2023-07-07 07:12] LABS: Anisocytosis 2+
[2023-07-07 07:40] LABS: Hemoglobin A1c 6.5 % (3.8-5.6)
[2023-07-07] MEDS: Glucerna Shake 120 ML LIQUID PO (09:22)
[2023-07-07 09:28] VITALS: BP 126/58; PULSE 81
[2023-07-07] MEDS: APIXABAN 2.5 MG TABLET (WCH) PO ×2 (09:28→21:35)
[2023-07-07] MEDS: Metoprolol(XL)Succ 100 MG Tablet 50 MG PO (09:28)
[2023-07-07] MEDS: Empagliflozin 10 MG Tablet PO (09:28)
[2023-07-07] MEDS: Ascorbic Acid 500 MG Tablet PO ×2 (09:28→17:39)
[2023-07-07] MEDS: Furosemide 40 MG Tablet PO ×2 (09:28→21:35)
[2023-07-07] MEDS: Potassium Chloride Oral Tablet 20 MEQ PO ×3 (09:28→17:39)
[2023-07-07] MEDS: amLODIPine 10 MG Tablet PO (09:28)
[2023-07-07] MEDS: Atorvastatin Calcium 10 MG Tablet PO (09:28)
[2023-07-07] MEDS: Iron Polysaccharide Complex 150 MG CAPSULE PO ×2 (09:28→21:35)
[2023-07-07] MEDS: Pantoprazole Sodium 40 MG Tablet PO ×2 (09:28→21:35)
[2023-07-07] MEDS: Miconazole Nitrate 43 GM Bottle 1 APPLIC TOPICAL ×2 (09:29→22:11)
[2023-07-07] MEDS: Menthol/Lanolin/Calamine/Znox 113 GM Tube 1 APPLIC TOPICAL ×2 (09:30→22:11)
[2023-07-07 09:40] VITALS: BP 126/58; PULSE 81
[2023-07-07 09:46] VITALS: BMI 22.7
[2023-07-07] MEDS: Tuberculin,Purif.prot.deriv. 50 TU/ML Vial 0.1 ML ID (10:45)
[2023-07-07] MEDS: 0.9% Saline Lock 10 ML Syringe IV ×2 (10:46→21:39)
[2023-07-07 10:50] VITALS: PULSE 81; RESP 16; O2SAT 98
--- NOTE | 2023-07-07 11:09 | NURSING ---
PER ORDERS,MALENA WRAP TO RT KNEE APPLIED. PT HAS FINE CRACKLES TO RT LOWER LOBE. I.S ORDER IN.
[2023-07-07] MEDS: Acetaminophen 500 MG Tablet 1000 MG PO (13:14)
[2023-07-07 13:34] VITALS: BP 119/53; PULSE 92; RESP 18; TEMP 35.9; O2SAT 99
--- NOTE | 2023-07-07 14:25 | MDS.RN ---
Information for the mds was obtained from review of the clinical record, interview of resident, staff, and direct observation of resident's care.
--- NOTE | 2023-07-07 14:36 | CHAPLAIN ---
Type of Pastoral Visit _x__ Initial Visit ___ Follow-up Visit ___ On-call Visit ___ General Patient Visit ___ Spiritual Assessment ___ Family Conference ___ Bereavement ___ Rapid Response ___ Code Blue ___ Other (describe below) Pastoral Care Referral From _x__ Patient ___ Family ___ Nurse ___ Physician ___ Planer Hand ___ Powertrain Control Systems Engineer ___ Other (describe below) Sacrament/Intervention ___ Active listening ___ Anointing ___ Church ___ Bereavement ___ Communion ___ Roxane exploration ___ ___ Life review _x__ Prayer ___ Reconciliation ___ Sacrament of Sick _x__ Supportive presence ___ Wedding ___ Other (describe below) Pastoral Comments patient is resting in bed and awake; pt answers questions appropriately but does not engage in conversation; pt states that she is doing fine; pt welcomes presence and prayer but is mostly quiet in the visit
[2023-07-07 21:35] VITALS: BP 101/53; PULSE 81
[2023-07-07] MEDS: MELATONIN 3 MG TABLET PO (21:35)
--- NOTE | 2023-07-08 04:06 | NURSING ---
SECONDARY EDUCATION PROFESSOR notified this nurse that pt was more confused than usual, shaky, and c/o SOB. This nurse went into assess pt while she was sitting on the toiler. Vitals: 94/45 SpO2: 99% on RA P: 96 Resp: 22 B. Water given per pt request. Cloudy urine with visible sediment observed in toilet. Pt assisted x2 back to bed. Pt stated she felt better laying down. SpO2 while laying flat: 95% on RA. Upon follow up assessment 10 min later, pt stated she was no longer SOB and felt much better. SpO2 remains at 95%.
[2023-07-08 06:00] VITALS: BMI 22.7
[2023-07-08 06:42] LABS: Bedside Glucose 258 mg/dL (74-106)
[2023-07-08] MEDS: Acetaminophen 500 MG Tablet 1000 MG PO (06:48)
[2023-07-08 08:09] LABS: Anion Gap 10 (5-15); BUN 33 mg/dL (7-18); BUN/Creat Ratio 14.2 RATIO (10-20); Calcium,Total 9.1 mg/dL (8.5-10.1); Chloride 100 mmol/L (98-107); Creatinine, Serum 2.33 mg/dL (0.55-1.02); EST Glomerular Filtration Rate 21 mL/min (>60); Est Glom Filt Rate - Afr Amer 25 mL/min (>60); Glucose 293 mg/dL (74-106); Potassium 3.3 mmol/L (3.5-5.1); Sodium Level 135 mmol/L (136-145)
[2023-07-08 08:12] LABS: Absolute Neutrophil Count 4.8 X10^3/uL (2.0-7.7); Basophil# 0.06 X10^3/uL; Basophil% 0.8 % (0-1); Eosinophil# 0.14 X10^3/uL; Eosinophils% 1.9 % (0-5); Hematocrit 33.4 % (37-47); Hemoglobin 10.8 g/dL (12.0-15.0); Lymphocyte % 20.3 % (19-41); Mean Corp Hgb Conc 32.3 g/dL (32-36); Mean Corpuscular Hgb 30.2 pg (27.0-32.0); Mean Corpuscular Volume 93.3 fL (81-99); Mean Platelet Vol. 9.8 fl (6.2-12.0); Monocyte# 0.83 X10^3/uL; Monocyte% 11.2 % (0-10); NRBC Flagged by Analyzer 0 % (0-5); Neutrophil # 4.82 X10^3/uL (2.7-7.7); Neutrophil % 65.3 % (47-70); Platelet Count 243 K/mm3 (150-450); RBC Distribution Width CV 18.2 % (11.6-14.6); RBC Distribution Width SD 61.3 fl (35.1-43.9); Red Blood Count 3.58 M/mm3 (4.2-5.4); White Blood Count 7.4 K/mm3 (4.4-11.0)
--- NOTE | 2023-07-08 08:15 | RAD_ITS ---
STUDY: X-RAY CHEST REASON FOR EXAM: Female, 87 years old. Shortness of breath TECHNIQUE: Frontal view of the chest COMPARISON: 06/25/2023 FINDINGS: There are stable subcentimeter calcified granulomata. The lungs are otherwise clear. There are no pleural effusions. There is no pneumothorax. There are stable calcified mediastinal lymph nodes, consistent with prior granulomatous disease. The heart is normal in size. Again noted is a prosthetic aortic valve. The visualized osseous structures are within normal limits. RAD/Chest PA and Lateral IMPRESSION: No acute thoracic pathology. Electronically Signed: Sonny Gutierrez MD at 8:51 EST ,
[2023-07-08] MEDS: Ascorbic Acid 500 MG Tablet PO ×2 (09:17→16:43)
[2023-07-08] MEDS: Iron Polysaccharide Complex 150 MG CAPSULE PO ×2 (09:17→20:43)
[2023-07-08] MEDS: Furosemide 40 MG Tablet PO ×2 (09:17→20:42)
[2023-07-08] MEDS: Menthol/Lanolin/Calamine/Znox 113 GM Tube 1 APPLIC TOPICAL ×2 (09:18→20:50)
[2023-07-08] MEDS: Potassium Chloride Oral Tablet 20 MEQ PO ×3 (09:18→16:44)
[2023-07-08] MEDS: Losartan Potassium 50 MG Tablet PO ×2 (09:21→20:42)
[2023-07-08] MEDS: Miconazole Nitrate 43 GM Bottle 1 APPLIC TOPICAL ×2 (09:21→20:51)
[2023-07-08] MEDS: APIXABAN 2.5 MG TABLET (WCH) PO ×2 (09:21→20:42)
[2023-07-08 09:22] VITALS: BP 111/60; PULSE 84
[2023-07-08] MEDS: amLODIPine 10 MG Tablet PO (09:22)
[2023-07-08] MEDS: Empagliflozin 10 MG Tablet PO (09:22)
[2023-07-08] MEDS: Metoprolol(XL)Succ 100 MG Tablet 50 MG PO (09:22)
[2023-07-08] MEDS: Senna/Docusate Sodium 1 Tablet PO ×2 (09:22→20:43)
[2023-07-08] MEDS: Pantoprazole Sodium 40 MG Tablet PO ×2 (09:22→20:42)
[2023-07-08] MEDS: Atorvastatin Calcium 10 MG Tablet PO (09:22)
[2023-07-08] MEDS: Glucerna Shake 120 ML LIQUID PO ×2 (09:26→12:45)
[2023-07-08 09:46] VITALS: BP 111/60; PULSE 84
--- NOTE | 2023-07-08 09:52 | CASEMGMT ---
Social Work IDT met with patient and multiple family members for care plan meeting. Discussed patient's progress in PT/OT/ST/SN. Educated to Medicare benefit and copay coverage. IDT is recommending 09/03 care and agree to plans for AL. SW inquired about DC plan, [facility] in [facility]. Family confirmed that is the goal. SW offered to send referral. Family agreed. Pt has two f/u appts for 07/21. Pt likely to remain until after those appts. SW will continue to follow for DC planning. AARON Dan POWER SAW MECHANIC
--- NOTE | 2023-07-08 11:03 | NURSING ---
RETURNS SUPERVISOR IN WITH PT TALKING TO HER AND SIGNING PAPERS. REPORTED TO RN THAT PT IS CONFUSED AND THIS NURSE DOES NOT FEEL COMFORTABLE WITH THIS AT THIS TIME. RN IN TO TALK TO PT RETURNS SUPERVISOR AND RN STATED TO THIS NURSE THAT HE SAID HE HAS WORKED WITH HER FOR 40 YEARS AND KNOWS WHAT PT WANTS. ALSO REPORTED TO PAULINELOCK PLATER.
--- NOTE | 2023-07-08 11:40 | NURSING ---
RED AREAS TO TOP OF PT VERNA BIG TOES. 2X2 GAZE APPLIED. RN AWARE.
[2023-07-08 12:26] LABS: Bacteria 0 SEEN /hpf (None Seen); Mucous, Urine 0 SEEN /hpf (<or=2+); Red Blood Cells-Urine 0 SEEN /hpf (0-5); Squamous Epithelial Cells - UA 0 SEEN /hpf (5-10)
[2023-07-08 12:48] LABS: Color, Urine Yellow (Yellow); Glucose, Dipstick 1000 mg/dl (Normal); Ketone-Dipstick Negative (Negative); Leukocyte Esterase-Dipstick Negative /ul (Negative); Nitrite-Dipstick Negative (Negative); Occult Blood-Urine Negative /ul (Negative); Protein-Dipstick Negative (Negative); Specific Gravity, Urine 1.005 (1.002-1.030); Urine Bilirubin Dipstick Negative (Negative); Urine Clarity Clear (Clear); Urine Urobilinogen Normal (Normal)
[2023-07-08 12:56] LABS: White Blood Cells 0-5 SEEN /hpf (0-5)
--- NOTE | 2023-07-08 14:08 | NURSING ---
PT VERY CONFUSED,TIRED, SHAKY AND COLD TODAY. BM LOOKED LIKE SMALL AREA IN COLOR WAS SILVER. RN AWARE AND REPORTED TO .
[2023-07-08] MEDS: Insulin Lispro 100 UNIT/ML INSULN.PEN SC (14:55)
[2023-07-08] MEDS: 0.9% Saline Lock 10 ML Syringe IV (15:03)
[2023-07-08] MEDS: 0.9% Normal Saline (1000mL) 1,000 ML 60 ML IV (15:05)
[2023-07-08 15:18] VITALS: BP 101/50; PULSE 70; RESP 14; TEMP 36.6; O2SAT 92
--- NOTE | 2023-07-08 18:19 | NURSING ---
PT SPILLED HER DINNER TRAY ALL OVER HER SELF AND TRYING TO GET OUT OF BED. THIS NURSE AND LUBE WORKER DID BED CHANGE AND CLEANED PT UP. PT WAS VERY ANXIOUS AND STATING HELP ME TRIED TO REASSURE PT SHE WAS OK AND SAFE. THIS NURSE ASKED PT IF SHE WOULD LIKE THIS NURSE TO SIT WITH HER FOR A WHILE. PT STATED YES AND PT HAS BEEN CALM AND RESTING.
--- NOTE | 2023-07-08 18:23 | CASEMGMT ---
Social Work Shortly after the POC mtg, CONCRETE BLOCK MOLDER spoke aside to this worker stating family is wanting pt to sign financial documents and nursing does not feel pt is cognitively intact to make those decisions. SW agreed as ST and rest of IDT has continuously noted pt is not consistently alert and oriented. One son had mentioned in passing that two brothers agreed on decisions but the third brother did not. SW observed family members present in pt's room and entered room with intent to have further discussion about documents. Upon entering room, an assistant county attorney was present. SW introduced self and role, apologized for interruption, and explained at this time, IDT does not feel pt is competent enough to sign any legal or financial documents at this time. Front Office Supervisor taken aback stating he was not aware of this, as the assistant county attorney he can determine if a pt is capable of signing documents, and the law allows that, noting his 40 years experience. JANEL acknowledged assistant county attorney's prerogative and requested the assistant county attorney not to belittle this worker as this worker understands the law regarding determining of competence as well, referencing the Dr completing an expert evaluation and having the courts officially determining competence. JANEL reiterated at this time, IDT does not feel pt has the cognitive capacity to sign legal documents. Front Office Supervisor requested the Dr's name and that when pt regains competence, he will be returning to have pt sign the documents and requested this worker contact assistant county attorney at that time. JANEL provided Dr name and agreed to contact, accepting assistant county attorney's business card. JANEL went directly to Supervisor Capacitor Processing to collaborate on situation. Supervisor Capacitor Processing confirmed this worker was protecting pt's rights and advocating for the safety of the pt in regards to her finances, without knowing more information at the time. Supervisor Capacitor Processing agreed to update physician and if pts cognition changes, to notify assistant county attorney. SW to also contact son to follow up and gather more information. JANEL received call from son, Den and his , requesting clarification of earlier encounter. JANEL provided explanation with intent to enter room and gather more information, however, this worker was unaware assistant county attorney was present and documents were already going to be signed. JANEL inquired to son the generalization of these documents. Son was unable to provide clear explanation and directed this worker to speak with assistant county attorney. JANEL then referenced HCPOA on file and explained primary agency is son, Chalo, whom would be the final decision maker regarding pt's care/wishes. SW to contact Chalo. Son, Den, expressed understanding. SW phoned son, Chalo, to discuss earlier encounter. After extended cordial conversation, son was able to explain the pt has had a professional relationship with assistant county attorney since 2000; pt and has previously used assistant county attorney for financial affairs, and since , pt has been working with assistant county attorney to update financial documents. This meeting was a continuation of those documents that had not been signed yet. The documents were to assist pt in properly using her funds to pay for her ongoing care at [place]. All family is understanding the agreement of these documents and ensuring pt gets the care she needs using her funds appropriately. Son expressed confidence in the assistant county attorney. Son did repeatedly expressed understanding of hospital/this worker advocating for pt and ensuring there was no abuse or exploitation taking place. Son stated the fact that you took this initiative and care as much as you do without it being your own mom to make sure she is not being [exploited], I respect the hell out of you. SW appreciative the recognition and reiterated that is the role of this worker and IDT. SW continuously apologized for the interruption and intending on having this conversation initially to gain further insight into these financial documents. JANEL agreed to follow up with on the above. Son appreciative of this worker and conversation as well. JANEL spoke with Dr. Chavira to provide update on conversation. Dr. Chavira agreed this is appropriate use of funds and agrees pt is able to sign documents. JANEL spoke with Supervisor Capacitor Processing to update. Supervisor Capacitor Processing also had phone conversation with assistant county attorney and corroborated what son is expressing as well. Supervisor Capacitor Processing agreed for this worker to phone assistant county attorney for further resolution. SW phoned assistant county attorney and held discussion on intent for this worker's presence during meeting with family, intentions for protecting pt's rights d/t to current lack of cognitive capacity, and acknowledged the son's conversation with family agreement for pt sign documents to assist care. Front Office Supervisor reiterated corroboration and history working with pt. Front Office Supervisor explained his procedures in the office meeting with clients and assessment conducted with pt earlier this date to ensure capacity to sign legal documents. Front Office Supervisor also acknowledged the protection and advocacy by this worker and IDT. Front Office Supervisor and this worker agreed to conduct another BIMS assessment next week and follow pt's cognition with the goal for assistant county attorney to meet with pt again for signing of these documents. Front Office Supervisor offered for this worker to be present to ensure safety of pt. SW expressed appreciation for assistant county attorney's work and acknowledgment with this situation. SW to follow up with assistant county attorney after completion of BIMS and devise a plan moving forward. SW phoned son, Chalo, to update on new BIMS assessment Thursday and Dr. Chavira being in agreement to signing of the documents by pt. Son appreciative. SW will continue to follow. AARON Dan
[2023-07-08] MEDS: MELATONIN 3 MG TABLET PO (20:43)
[2023-07-09 06:00] VITALS: BMI 22.8
[2023-07-09 06:53] LABS: Bedside Glucose 228 mg/dL (74-106)
[2023-07-09 07:33] LABS: Absolute Lymphocyte Count 1.37 X10^3/uL (0.83-4.51); Absolute Neutrophil Count 4.4 X10^3/uL (2.0-7.7); Basophil# 0.06 X10^3/uL; Basophil% 0.9 % (0-1); Eosinophil# 0.11 X10^3/uL; Eosinophils% 1.6 % (0-5); Hematocrit 32.9 % (37-47); Hemoglobin 9.9 g/dL (12.0-15.0); Lymphocyte # 1.37 X10^3/ul (0.83-4.51); Lymphocyte % 20.1 % (19-41); Mean Corp Hgb Conc 30.1 g/dL (32-36); Mean Corpuscular Hgb 29.9 pg (27.0-32.0); Mean Corpuscular Volume 99.4 fL (81-99); Mean Platelet Vol. 9.5 fl (6.2-12.0); Monocyte# 0.87 X10^3/uL; Monocyte% 12.8 % (0-10); NRBC Flagged by Analyzer 0 % (0-5); Neutrophil # 4.35 X10^3/uL (2.7-7.7); Neutrophil % 63.7 % (47-70); POSITIVE MORPHOLOGY YES; Platelet Count 207 K/mm3 (150-450); RBC Distribution Width CV 19.1 % (11.6-14.6); RBC Distribution Width SD 69.6 fl (35.1-43.9); Red Blood Count 3.31 M/mm3 (4.2-5.4); White Blood Count 6.8 K/mm3 (4.4-11.0)
[2023-07-09 07:41] LABS: Differential Indicated SCAN CRITERIA MET
[2023-07-09 07:51] LABS: Differential Comment SCANNED
[2023-07-09 07:52] LABS: Anisocytosis 2+; Macrocytosis 1+
[2023-07-09] MEDS: 0.9% Normal Saline (1000mL) 1,000 ML 60 ML IV ×2 (08:01→22:07)
[2023-07-09] MEDS: Glucerna Shake 120 ML LIQUID PO ×3 (08:01→17:32)
[2023-07-09] MEDS: Menthol/Lanolin/Calamine/Znox 113 GM Tube 1 APPLIC TOPICAL ×2 (08:02→21:58)
[2023-07-09 08:10] LABS: Anion Gap 7 (5-15); BUN 29 mg/dL (7-18); BUN/Creat Ratio 12.2 RATIO (10-20); Calcium,Total 7.3 mg/dL (8.5-10.1); Chloride 107 mmol/L (98-107); Creatinine, Serum 2.37 mg/dL (0.55-1.02); EST Glomerular Filtration Rate 21 mL/min (>60); Est Glom Filt Rate - Afr Amer 25 mL/min (>60); Estimated Creatinine Clearance 12.98 ml/min; Glucose 212 mg/dL (74-106); Potassium 4.4 mmol/L (3.5-5.1); Sodium Level 139 mmol/L (136-145)
[2023-07-09] MEDS: Iron Polysaccharide Complex 150 MG CAPSULE PO ×2 (08:10→22:00)
[2023-07-09] MEDS: Potassium Chloride Oral Tablet 20 MEQ PO ×3 (08:10→17:31)
[2023-07-09] MEDS: Losartan Potassium 50 MG Tablet PO ×2 (08:11→22:00)
[2023-07-09] MEDS: Ascorbic Acid 500 MG Tablet PO ×2 (08:11→17:31)
[2023-07-09] MEDS: APIXABAN 2.5 MG TABLET (WCH) PO ×2 (08:11→22:00)
[2023-07-09] MEDS: Senna/Docusate Sodium 1 Tablet PO ×2 (08:12→22:00)
[2023-07-09] MEDS: Empagliflozin 10 MG Tablet PO (08:12)
[2023-07-09] MEDS: amLODIPine 10 MG Tablet PO (08:12)
[2023-07-09] MEDS: Pantoprazole Sodium 40 MG Tablet PO ×2 (08:12→22:00)
[2023-07-09 08:13] VITALS: BP 110/71; PULSE 77
[2023-07-09] MEDS: Atorvastatin Calcium 10 MG Tablet PO (08:13)
[2023-07-09] MEDS: Furosemide 40 MG Tablet PO (08:13)
[2023-07-09] MEDS: Metoprolol(XL)Succ 100 MG Tablet 50 MG PO (08:13)
[2023-07-09] MEDS: Miconazole Nitrate 43 GM Bottle 1 APPLIC TOPICAL ×2 (08:16→21:59)
[2023-07-09 14:22] VITALS: PULSE 81; RESP 17; TEMP 36.3; O2SAT 99
[2023-07-09 14:27] VITALS: BP 98/54
--- NOTE | 2023-07-09 17:39 | NURSING ---
Pt has been in pleasant mood today, mentation at baseline. No increased anxiety today. Continues with 6mL NS infusing, IV patent, no issues noted. BP this afternoon was 87/54 monitor, retook manually-98/54. Lungs clear to auscultation. Pt denies pain\discomfort, asymptomatic.
[2023-07-09 21:57] VITALS: BP 113/57; PULSE 77; O2SAT 99
[2023-07-10 05:41] LABS: Absolute Lymphocyte Count 1.34 X10^3/uL (0.83-4.51); Basophil# 0.05 X10^3/uL; Basophil% 0.8 % (0-1); Eosinophil# 0.39 X10^3/uL; Eosinophils% 5.9 % (0-5); Hematocrit 29.3 % (37-47); Hemoglobin 8.8 g/dL (12.0-15.0); Lymphocyte # 1.34 X10^3/ul (0.83-4.51); Lymphocyte % 20.3 % (19-41); Mean Corpuscular Hgb 29.9 pg (27.0-32.0); Mean Corpuscular Volume 99.7 fL (81-99); Mean Platelet Vol. 9.9 fl (6.2-12.0); Monocyte# 0.81 X10^3/uL; Monocyte% 12.3 % (0-10); NRBC Flagged by Analyzer 0 % (0-5); Neutrophil # 3.99 X10^3/uL (2.7-7.7); Neutrophil % 60.2 % (47-70); POSITIVE MORPHOLOGY YES; Platelet Count 189 K/mm3 (150-450); RBC Distribution Width CV 18.6 % (11.6-14.6); RBC Distribution Width SD 67.5 fl (35.1-43.9); Red Blood Count 2.94 M/mm3 (4.2-5.4); White Blood Count 6.6 K/mm3 (4.4-11.0)
[2023-07-10 05:58] LABS: Differential Indicated SCAN CRITERIA MET
[2023-07-10 06:00] VITALS: BP 102/47; PULSE 80; RESP 16; O2SAT 99
[2023-07-10 06:11] LABS: Anion Gap 7 (5-15); BUN 33 mg/dL (7-18); BUN/Creat Ratio 14.5 RATIO (10-20); Chloride 110 mmol/L (98-107); Creatinine, Serum 2.27 mg/dL (0.55-1.02); EST Glomerular Filtration Rate 22 mL/min (>60); Est Glom Filt Rate - Afr Amer 26 mL/min (>60); Estimated Creatinine Clearance 13.55 ml/min; Glucose 287 mg/dL (74-106); Potassium 4.6 mmol/L (3.5-5.1); Sodium Level 141 mmol/L (136-145)
[2023-07-10 06:39] LABS: Anisocytosis 2+
[2023-07-10 06:49] LABS: Bedside Glucose 234 mg/dL (74-106)
[2023-07-10] MEDS: Iron Polysaccharide Complex 150 MG CAPSULE PO ×2 (07:45→21:32)
[2023-07-10] MEDS: Potassium Chloride Oral Tablet 20 MEQ PO ×3 (08:00→17:21)
[2023-07-10] MEDS: Atorvastatin Calcium 10 MG Tablet PO (08:00)
[2023-07-10] MEDS: Senna/Docusate Sodium 1 Tablet PO ×2 (08:00→21:32)
[2023-07-10] MEDS: Pantoprazole Sodium 40 MG Tablet PO ×2 (08:00→21:32)
[2023-07-10] MEDS: Glucerna Shake 120 ML LIQUID PO ×3 (09:26→17:21)
[2023-07-10] MEDS: Ascorbic Acid 500 MG Tablet PO ×2 (09:28→17:22)
[2023-07-10] MEDS: Menthol/Lanolin/Calamine/Znox 113 GM Tube 1 APPLIC TOPICAL ×2 (09:29→21:30)
[2023-07-10] MEDS: Losartan Potassium 50 MG Tablet PO ×2 (09:29→21:31)
[2023-07-10] MEDS: Miconazole Nitrate 43 GM Bottle 1 APPLIC TOPICAL ×2 (09:30→21:29)
[2023-07-10] MEDS: APIXABAN 2.5 MG TABLET (WCH) PO ×2 (09:31→21:32)
[2023-07-10 09:32] VITALS: BP 102/47; PULSE 80
[2023-07-10] MEDS: Metoprolol(XL)Succ 100 MG Tablet 50 MG PO (09:32)
--- NOTE | 2023-07-10 14:09 | CASEMGMT ---
PHQ9 (0) and BIMS (01/29) assessments completed on this date for MDS assessment. KATHRYN Dean
[2023-07-10 14:53] VITALS: BP 101/42; PULSE 74; RESP 16; TEMP 36.2; O2SAT 93
[2023-07-10 19:35] VITALS: PULSE 97; RESP 16
[2023-07-10] MEDS: MELATONIN 3 MG TABLET PO (21:32)
[2023-07-11 06:15] VITALS: PULSE 80; RESP 18; O2SAT 92
[2023-07-11 06:27] LABS: Bedside Glucose 241 mg/dL (74-106)
[2023-07-11 07:14] LABS: Hemoglobin 9.2 g/dL (12.0-15.0)
[2023-07-11 07:59] LABS: Anion Gap 4 (5-15); BUN 30 mg/dL (7-18); BUN/Creat Ratio 15.5 RATIO (10-20); Calcium,Total 8.2 mg/dL (8.5-10.1); Chloride 111 mmol/L (98-107); Creatinine, Serum 1.93 mg/dL (0.55-1.02); EST Glomerular Filtration Rate 26 mL/min (>60); Est Glom Filt Rate - Afr Amer 32 mL/min (>60); Estimated Creatinine Clearance 15.94 ml/min; Glucose 247 mg/dL (74-106); Potassium 4.7 mmol/L (3.5-5.1); Sodium Level 139 mmol/L (136-145)
[2023-07-11] MEDS: Glucerna Shake 120 ML LIQUID PO ×3 (08:02→17:05)
[2023-07-11 08:05] VITALS: BP 118/91; PULSE 84
[2023-07-11] MEDS: Iron Polysaccharide Complex 150 MG CAPSULE PO ×2 (08:05→21:54)
[2023-07-11] MEDS: Potassium Chloride Oral Tablet 20 MEQ PO ×3 (08:05→17:05)
[2023-07-11] MEDS: Metoprolol(XL)Succ 100 MG Tablet 50 MG PO (08:05)
[2023-07-11] MEDS: Pantoprazole Sodium 40 MG Tablet PO ×2 (08:06→21:55)
[2023-07-11] MEDS: Atorvastatin Calcium 10 MG Tablet PO (08:06)
[2023-07-11] MEDS: Ascorbic Acid 500 MG Tablet PO ×2 (08:06→17:05)
[2023-07-11] MEDS: amLODIPine 10 MG Tablet PO (08:06)
[2023-07-11] MEDS: APIXABAN 2.5 MG TABLET (WCH) PO ×2 (08:07→21:54)
[2023-07-11] MEDS: Losartan Potassium 50 MG Tablet PO ×2 (08:07→21:54)
[2023-07-11] MEDS: Menthol/Lanolin/Calamine/Znox 113 GM Tube 1 APPLIC TOPICAL ×2 (08:07→21:58)
[2023-07-11] MEDS: Senna/Docusate Sodium 1 Tablet PO ×2 (08:07→21:55)
[2023-07-11] MEDS: Miconazole Nitrate 43 GM Bottle 1 APPLIC TOPICAL ×2 (08:07→21:58)
[2023-07-11 14:40] VITALS: BP 99/52; PULSE 81; RESP 16; TEMP 36.1; O2SAT 100
[2023-07-11] MEDS: MELATONIN 3 MG TABLET PO (21:54)
[2023-07-12 06:07] LABS: Hematocrit 29.8 % (37-47); Hemoglobin 9.4 g/dL (12.0-15.0)
[2023-07-12 06:27] LABS: Anion Gap 6 (5-15); BUN 23 mg/dL (7-18); BUN/Creat Ratio 13.8 RATIO (10-20); Calcium,Total 8.1 mg/dL (8.5-10.1); Chloride 109 mmol/L (98-107); Creatinine, Serum 1.67 mg/dL (0.55-1.02); EST Glomerular Filtration Rate 31 mL/min (>60); Est Glom Filt Rate - Afr Amer 37 mL/min (>60); Estimated Creatinine Clearance 18.42 ml/min; Glucose 221 mg/dL (74-106); Potassium 4.4 mmol/L (3.5-5.1); Sodium Level 138 mmol/L (136-145)
[2023-07-12 06:46] LABS: Bedside Glucose 191 mg/dL (74-106)
[2023-07-12] MEDS: Potassium Chloride Oral Tablet 20 MEQ PO ×3 (08:41→17:34)
[2023-07-12] MEDS: Menthol/Lanolin/Calamine/Znox 113 GM Tube 1 APPLIC TOPICAL ×2 (08:44→20:51)
[2023-07-12] MEDS: Iron Polysaccharide Complex 150 MG CAPSULE PO ×2 (08:45→20:50)
[2023-07-12] MEDS: Ascorbic Acid 500 MG Tablet PO ×2 (08:45→17:34)
[2023-07-12] MEDS: Senna/Docusate Sodium 1 Tablet PO ×2 (08:46→20:50)
[2023-07-12] MEDS: Pantoprazole Sodium 40 MG Tablet PO ×2 (08:46→20:50)
[2023-07-12] MEDS: amLODIPine 10 MG Tablet PO (08:46)
[2023-07-12] MEDS: Atorvastatin Calcium 10 MG Tablet PO (08:46)
[2023-07-12 08:47] VITALS: PULSE 88
[2023-07-12] MEDS: Metoprolol(XL)Succ 100 MG Tablet 50 MG PO (08:47)
[2023-07-12] MEDS: Losartan Potassium 50 MG Tablet PO ×2 (08:48→20:48)
[2023-07-12] MEDS: Miconazole Nitrate 43 GM Bottle 1 APPLIC TOPICAL ×2 (08:48→20:49)
[2023-07-12] MEDS: APIXABAN 2.5 MG TABLET (WCH) PO ×2 (08:49→20:50)
[2023-07-12 16:00] VITALS: BP 93/46; PULSE 88; RESP 18; TEMP 37.1; O2SAT 96
[2023-07-12] MEDS: Glucerna Shake 120 ML LIQUID PO (17:33)
--- NOTE | 2023-07-12 20:01 | NURSING ---
Patient's family notified of a patient testing positive for Covid on unit.
[2023-07-12 20:45] VITALS: PULSE 88; RESP 17
[2023-07-12] MEDS: MELATONIN 3 MG TABLET PO (20:49)
[2023-07-13 05:42] LABS: Hematocrit 31.5 % (37-47)
[2023-07-13 06:05] LABS: Anion Gap 4 (5-15); BUN 19 mg/dL (7-18); Calcium,Total 8.7 mg/dL (8.5-10.1); Chloride 110 mmol/L (98-107); Creatinine, Serum 1.58 mg/dL (0.55-1.02); EST Glomerular Filtration Rate 33 mL/min (>60); Est Glom Filt Rate - Afr Amer 40 mL/min (>60); Estimated Creatinine Clearance 19.47 ml/min; Glucose 195 mg/dL (74-106); Sodium Level 139 mmol/L (136-145)
[2023-07-13 06:33] LABS: Bedside Glucose 167 mg/dL (74-106)
[2023-07-13] MEDS: Miconazole Nitrate 43 GM Bottle 1 APPLIC TOPICAL ×2 (08:58→21:43)
[2023-07-13] MEDS: Potassium Chloride Oral Tablet 20 MEQ PO ×3 (08:58→16:56)
[2023-07-13] MEDS: Iron Polysaccharide Complex 150 MG CAPSULE PO ×2 (08:58→21:43)
[2023-07-13] MEDS: Ascorbic Acid 500 MG Tablet PO ×2 (08:59→16:57)
[2023-07-13] MEDS: Losartan Potassium 50 MG Tablet PO ×2 (08:59→21:43)
[2023-07-13] MEDS: Menthol/Lanolin/Calamine/Znox 113 GM Tube 1 APPLIC TOPICAL ×2 (08:59→21:43)
[2023-07-13 09:00] VITALS: PULSE 79
[2023-07-13] MEDS: amLODIPine 10 MG Tablet PO (09:00)
[2023-07-13] MEDS: Atorvastatin Calcium 10 MG Tablet PO (09:00)
[2023-07-13] MEDS: Metoprolol(XL)Succ 100 MG Tablet 50 MG PO (09:00)
[2023-07-13] MEDS: Pantoprazole Sodium 40 MG Tablet PO ×2 (09:00→21:42)
[2023-07-13] MEDS: Senna/Docusate Sodium 1 Tablet PO ×2 (09:00→21:42)
[2023-07-13] MEDS: APIXABAN 2.5 MG TABLET (WCH) PO ×2 (09:01→21:43)
--- NOTE | 2023-07-13 11:17 | NURSING ---
Notified patient and left VM for son updating him a patient on the unit tested covid positive.
--- NOTE | 2023-07-13 12:43 | CASEMGMT ---
Social Work BIMS completed 01/29, which is in the severe impairment range. SW phoned assistant district attorney and updated on score. Salesperson Furniture inquired about frequency of assessment. SW offered to complete weekly and update assistant district attorney. JANEL noted Huddle is held tomorrow and will discuss ELOS for pt. Salesperson Furniture expressed understanding. JANEL left VM with YULISA Hester, at [facility] to inquire about acceptance/denial. JANEL will continue to follow. AARON DanW
[2023-07-13] MEDS: Glucerna Shake 120 ML LIQUID PO ×2 (13:57→16:56)
[2023-07-13 15:52] VITALS: BP 115/52; PULSE 83; RESP 14; TEMP 36.8; O2SAT 99
[2023-07-13] MEDS: MELATONIN 3 MG TABLET PO (21:42)
[2023-07-14 05:37] VITALS: BMI 22.6
[2023-07-14 05:43] LABS: Absolute Lymphocyte Count 1.23 X10^3/uL (0.83-4.51); Absolute Neutrophil Count 2.9 X10^3/uL (2.0-7.7); Basophil# 0.03 X10^3/uL; Basophil% 0.6 % (0-1); Eosinophil# 0.25 X10^3/uL; Eosinophils% 4.9 % (0-5); Hematocrit 30.3 % (37-47); Hemoglobin 9.7 g/dL (12.0-15.0); Lymphocyte # 1.23 X10^3/ul (0.83-4.51); Lymphocyte % 23.9 % (19-41); Mean Corpuscular Hgb 30.8 pg (27.0-32.0); Mean Corpuscular Volume 96.2 fL (81-99); Mean Platelet Vol. 9.6 fl (6.2-12.0); Monocyte% 13.6 % (0-10); NRBC Flagged by Analyzer 0 % (0-5); Neutrophil # 2.93 X10^3/uL (2.7-7.7); Neutrophil % 56.8 % (47-70); Platelet Count 190 K/mm3 (150-450); RBC Distribution Width CV 17.5 % (11.6-14.6); RBC Distribution Width SD 62.1 fl (35.1-43.9); Red Blood Count 3.15 M/mm3 (4.2-5.4); White Blood Count 5.2 K/mm3 (4.4-11.0)
[2023-07-14 06:07] LABS: Anion Gap 6 (5-15); BUN 20 mg/dL (7-18); BUN/Creat Ratio 13.2 RATIO (10-20); Calcium,Total 8.3 mg/dL (8.5-10.1); Chloride 110 mmol/L (98-107); Creatinine, Serum 1.52 mg/dL (0.55-1.02); EST Glomerular Filtration Rate 34 mL/min (>60); Est Glom Filt Rate - Afr Amer 41 mL/min (>60); Estimated Creatinine Clearance 20.23 ml/min; Glucose 194 mg/dL (74-106); Potassium 4.9 mmol/L (3.5-5.1); Sodium Level 139 mmol/L (136-145)
[2023-07-14 06:49] LABS: Bedside Glucose 171 mg/dL (74-106)
[2023-07-14] MEDS: Glucerna Shake 120 ML LIQUID PO ×3 (08:05→17:45)
[2023-07-14] MEDS: Menthol/Lanolin/Calamine/Znox 113 GM Tube 1 APPLIC TOPICAL ×2 (08:11→20:30)
[2023-07-14] MEDS: Potassium Chloride Oral Tablet 20 MEQ PO ×3 (08:11→17:45)
[2023-07-14] MEDS: Ascorbic Acid 500 MG Tablet PO ×2 (08:11→17:45)
[2023-07-14] MEDS: Losartan Potassium 50 MG Tablet PO ×2 (08:12→20:30)
[2023-07-14] MEDS: Iron Polysaccharide Complex 150 MG CAPSULE PO ×2 (08:13→20:30)
[2023-07-14] MEDS: Miconazole Nitrate 43 GM Bottle 1 APPLIC TOPICAL ×2 (08:13→20:31)
[2023-07-14] MEDS: APIXABAN 2.5 MG TABLET (WCH) PO ×2 (08:13→20:30)
[2023-07-14 08:14] VITALS: BP 131/68; PULSE 87
[2023-07-14] MEDS: Senna/Docusate Sodium 1 Tablet PO ×2 (08:14→20:30)
[2023-07-14] MEDS: amLODIPine 10 MG Tablet PO (08:14)
[2023-07-14] MEDS: Metoprolol(XL)Succ 100 MG Tablet 50 MG PO (08:14)
[2023-07-14] MEDS: Pantoprazole Sodium 40 MG Tablet PO ×2 (08:14→20:30)
[2023-07-14] MEDS: Atorvastatin Calcium 10 MG Tablet PO (08:14)
[2023-07-14 08:22] VITALS: BP 131/68; PULSE 87
[2023-07-14 09:35] VITALS: BMI 23.8
--- NOTE | 2023-07-14 13:17 | CASEMGMT ---
Social Work IDT discussed patient and set DC for 07/22. Received call from Kacie at [facility] that Sydney from [facility] will come assess pt 07/15 between [id number] to determine official acceptance. Kacie is in agreement with DC date. SW phoned son, Chalo, to update on above, in addition to the BIMS assessment and county attorney phone call yesterday. Son continued to dispute pt's cognition and stressing the importance of getting the paperwork signed. SW provided active listening and emphasized with barriers. SW offered to have further discussion with county attorney on those documents. Son stated I give you credit, you've got some spunk. It shows you have passion for your job and your patients. So I guess we'll do what we can and let the chips fall where they may. SW will continue to follow and update son with outcome from [facility] assessment. Yuliya Valdivia, AARON OLMSTEADW
[2023-07-14 14:22] VITALS: BP 109/53; PULSE 88; RESP 16; TEMP 35.6; O2SAT 100
[2023-07-14 16:21] LABS: Bedside Glucose 287 mg/dL (74-106)
[2023-07-14] MEDS: MELATONIN 3 MG TABLET PO (20:30)
[2023-07-15 06:00] VITALS: BMI 23.8
[2023-07-15 07:08] LABS: Bedside Glucose 153 mg/dL (74-106)
[2023-07-15] MEDS: Glucerna Shake 120 ML LIQUID PO ×3 (08:23→17:29)
[2023-07-15] MEDS: Potassium Chloride Oral Tablet 20 MEQ PO ×3 (08:23→17:33)
[2023-07-15] MEDS: Ascorbic Acid 500 MG Tablet PO ×2 (08:23→17:29)
[2023-07-15] MEDS: Atorvastatin Calcium 10 MG Tablet PO (08:24)
[2023-07-15] MEDS: APIXABAN 2.5 MG TABLET (WCH) PO ×2 (08:24→20:25)
[2023-07-15] MEDS: Losartan Potassium 50 MG Tablet PO ×2 (08:24→20:26)
[2023-07-15] MEDS: amLODIPine 10 MG Tablet PO (08:24)
[2023-07-15] MEDS: Iron Polysaccharide Complex 150 MG CAPSULE PO ×2 (08:24→20:25)
[2023-07-15 08:25] VITALS: BP 131/62; PULSE 87
[2023-07-15] MEDS: Metoprolol(XL)Succ 100 MG Tablet 50 MG PO (08:25)
[2023-07-15] MEDS: Senna/Docusate Sodium 1 Tablet PO ×2 (08:26→20:25)
[2023-07-15] MEDS: Menthol/Lanolin/Calamine/Znox 113 GM Tube 1 APPLIC TOPICAL ×2 (08:27→20:26)
[2023-07-15] MEDS: Miconazole Nitrate 43 GM Bottle 1 APPLIC TOPICAL ×2 (08:32→20:26)
[2023-07-15] MEDS: Pantoprazole Sodium 40 MG Tablet PO ×2 (08:33→20:25)
[2023-07-15 09:04] LABS: Hematocrit 30.3 % (37-47); Hemoglobin 9.4 g/dL (12.0-15.0)
[2023-07-15 12:18] VITALS: BP 122/56; PULSE 78; RESP 14; TEMP 36.2; O2SAT 99
--- NOTE | 2023-07-15 12:29 | CASEMGMT ---
Addendum entered by Yuliya Valdivia 07/16/23 11:56: SW received the signed form and sent requested BIMS assessment/note to claim attorney via secure email. Addendum entered by Yuliya Valdivia 07/16/23 11:56: Late entry: 07/15/23 at 1645. Received return call from son. SW explained request from claim attorney. Son agreed and stated he will be in to visit pt shortly and can sign the ROR. Addendum entered by Yuliya Valdivia 07/15/23 14:19: SW left VM with son, requesting return call. Original Note: Social Work - BIMS Assessment. SW received call the prior day from claim attorney requesting copy of BIMS completed on 07/10/23. JANEL consulted with bottom precipitator operator Management. The BIMS can be released to claim attorney if HCPOA, sabiha Isabel, agrees and signs ROR for that specific BIMS assessment/note. Since the completion of the BIMS was not attached to an MDS assessment, the official assessment and pt's responses are indicated in bold/underline below for record. Brief Interview for Mental Status (BIMS) 1Part I ? Repetition of three words Inform the resident that you are going to say three words and that he or she needs to remember the words and to repeat them. Say the three words: sock, blue and bed. Ask the resident to reproduce the three words and note the number after the first attempt: No word repeated (0 points) One word repeated (1 point) Two words repeated (2 points) All words repeated (3 points) 2Part II ? Temporal orientation A. Ask the resident what year is it right now and report their answer: Missed by >5 years or no answer (0 points) - Patient had a blank stare and responded, I don't know Missed by 2 ? 5 years (1 point) Missed by 1 year (2 points) Correct (3 points) B. Ask the resident what month we are in at the moment and report their answer: Missed by >1 month or no answer (0 points) Missed by 6 days to one month (1 point) Accurate within 5 days (2 points) C. Ask the resident what day of the week is today and report their answer: Incorrect, or no answer (0 points) - Patient had a blank stare and responded, I don't know Correct (1 point) 3Part III ? Recall Tell the resident that you are going back to the earlier question and ask them to say the words that they were asked to repeat. If they are unable to remember a word, provide cues such as ?something to wear?,? a color?, ?a piece of furniture? A. Able to recall ?sock? No, could not recall (0 points) - Patient responded, I don't know Yes, after cueing ?something to wear? (1 point) Yes, no cue required (2 points) B. Able to recall ?blue? No, could not recall (0 points) - Yes, after cueing ?color? (1 point) Yes, no cue required (2 points) C. Able to recall ?bed? No, could not recall (0 points) - Patient responded, I don't know Yes, after cueing ?a piece of furniture? (1 point) - with prompting the patient able to say bed. Yes, no cue required (2 points) Total Score is 6/15 - falling into the severe range of cognitive impairment. Yuliya Valdivia, CONFIGURATION TECHNICIAN ANESTHESIOLOGIST ATTENDING
--- NOTE | 2023-07-15 14:53 | NURSING ---
Addendum entered by Shanti Damon 07/15/23 14:57: Correction: patient updated. She asked that family not be called. Original Note: Updated patient and family that a staff member tested positive for covid.
[2023-07-15] MEDS: MELATONIN 3 MG TABLET PO (20:25)
[2023-07-15 20:31] VITALS: BP 119/60; PULSE 86
[2023-07-16 06:00] VITALS: BMI 23.8
[2023-07-16 06:05] LABS: Hematocrit 30.4 % (37-47); Hemoglobin 9.3 g/dL (12.0-15.0)
[2023-07-16 06:37] LABS: Bedside Glucose 235 mg/dL (74-106)
[2023-07-16] MEDS: Glucerna Shake 120 ML LIQUID PO ×3 (08:12→17:33)
[2023-07-16] MEDS: Potassium Chloride Oral Tablet 20 MEQ PO ×3 (08:14→17:33)
[2023-07-16] MEDS: Ascorbic Acid 500 MG Tablet PO ×2 (08:17→17:34)
[2023-07-16] MEDS: Losartan Potassium 50 MG Tablet PO ×2 (08:17→20:10)
[2023-07-16] MEDS: Iron Polysaccharide Complex 150 MG CAPSULE PO ×2 (08:18→20:09)
[2023-07-16] MEDS: Pantoprazole Sodium 40 MG Tablet PO ×2 (08:18→20:10)
[2023-07-16] MEDS: APIXABAN 2.5 MG TABLET (WCH) PO ×2 (08:18→20:10)
[2023-07-16] MEDS: Atorvastatin Calcium 10 MG Tablet PO (08:18)
[2023-07-16] MEDS: amLODIPine 10 MG Tablet PO (08:18)
[2023-07-16 08:19] VITALS: BP 130/58; PULSE 85
[2023-07-16] MEDS: Metoprolol(XL)Succ 100 MG Tablet 50 MG PO (08:19)
[2023-07-16] MEDS: Senna/Docusate Sodium 1 Tablet PO ×2 (08:19→20:11)
[2023-07-16] MEDS: Menthol/Lanolin/Calamine/Znox 113 GM Tube 1 APPLIC TOPICAL ×2 (08:25→20:11)
[2023-07-16] MEDS: Miconazole Nitrate 43 GM Bottle 1 APPLIC TOPICAL ×2 (08:27→20:11)
[2023-07-16 08:34] VITALS: BP 130/58; PULSE 85
--- NOTE | 2023-07-16 10:42 | NURSING ---
Addendum entered by Shanti Damon 07/20/23 08:24: Son told staff over the weekend that they wanted appt cancelled. Appt cancelled per family request. Original Note: Called and spoke with Chalo, asked if family would be transporting patient to ortho follow-up. He said he wasn't sure if they were still wanting to go through with the appt, would call his brother and call nurse back.
--- NOTE | 2023-07-16 11:04 | NURSING ---
PT COMPLAINED OF HEEL PAIN. THIS NURSE ASSESSED PT AND FOUND A DIME SIZED PURPLE AREA ON THE LT HEEL. MEPILEX APPLIED AND HEEL BOOTS ORDERED. RN AWARE
--- NOTE | 2023-07-16 12:12 | CASEMGMT ---
Social Work SW followed up with Kacie at [facility]. Kacie can accept pt for 07/22, as long as family can provide funds to [place] by that time. Kacie has spoken with family about this and given other suggestions. SW will continue to assist son with DC plans. Yuliya Valdivia, EAR SPECIALIST LARRIMAN HELPER
[2023-07-16 15:00] VITALS: BP 100/51; PULSE 86; RESP 16; TEMP 35.9; O2SAT 98
--- NOTE | 2023-07-16 19:53 | PCM.DC.SUM ---
Providers Date of Admission: 06/29/23 Primary Care Physician: Dr. Ventura Baron DO Reason For Visit: GI BLEED Diagnosis Discharge Diagnosis (1) Debility: Status: Acute Code(s): R53.81 - Other malaise (2) Upper gastrointestinal bleed: Status: Acute Code(s): K92.2 - Gastrointestinal hemorrhage, unspecified (3) ANALISA (acute kidney injury): Status: Resolved Code(s): N17.9 - Acute kidney failure, unspecified (4) Acute blood loss anemia: Status: Acute Code(s): D62 - Acute posthemorrhagic anemia (5) Esophagitis: Status: Acute Code(s): K20.90 - Esophagitis, unspecified without bleeding (6) Gastric ulcer: Status: Acute Code(s): K25.9 - Gastric ulcer, unspecified as acute or chronic, without hemorrhage or perforation (7) Duodenal ulcer disease: Status: Acute Code(s): K26.9 - Duodenal ulcer, unspecified as acute or chronic, without hemorrhage or perforation (8) UTI (urinary tract infection): Status: Deleted Code(s): N39.0 - Urinary tract infection, site not specified (9) Diabetes mellitus: Status: Acute Code(s): E11.9 - Type 2 diabetes mellitus without complications Qualifiers: Diabetes mellitus type: type 2 (10) Chronic kidney disease, stage 3a: Status: Chronic Code(s): N18.31 - Chronic kidney disease, stage 3a (11) Heart failure with preserved ejection fraction: Status: Acute Code(s): I50.30 - Unspecified diastolic (congestive) heart failure (12) Atrial fibrillation: Status: Acute Code(s): I48.91 - Unspecified atrial fibrillation (13) Hypertension: Status: Chronic Code(s): I10 - Essential (primary) hypertension (14) Hyperlipidemia: Status: Chronic Code(s): E78.5 - Hyperlipidemia, unspecified Plan 87 year old female with below past medical history hospitalized for upper gastrointestinal bleed secondary to esophagitis, gastric ulcers, duodenal ulcers, complicated by acute blood loss anemia, acute kidney injury, urinary tract infection, admitted to TCU with debility, here for rehabilitation, strengthening, prior to discharge home alone. Debility - PT/OT. Cognition - ST. Pain - Tylenol 1000mg q6 prn pain (1-10). Bowel - Miralax 17gm daily prn, senna/colace 1 tablet bid, Magnesium citrate 300ml po daily prn. Adult immunization - Administer pneumonia vaccine, covid vaccine, flu vaccine as appropriate. DVT prophylaxis - on Eliquis. Hypertension - Metoprolol succinate 50mg daily, Losartan 50mg bid, Amlodipine 10mg daily. Atrial fibrillation - Metoprolol succinate 50mg daily, Eliquis 2.5mg bid. Hyperlipidemia - Atorvastatin 10mg daily. Diabetes Mellitus II - Jardiance 10mg daily. Iron deficiency anemia - Ferrous sulfate 325mg bid. Heart failure preserved ejection fraction - Metoprolol succinate 50mg daily, Losartan 50mg bid, Furosemide 80mg am, 40mg pm thru 07/02/2023, then Furosemide 40mg twice daily. Gastric ulcer/Duodenal ulcers - Pantoprazole 40mg twice daily. Hypokalemia - KCL ER 20meq bidcm. Medications at Discharge Home Medications amlodipine 10 mg tablet 10 mg PO DAILY BP 04/28/17 apixaban 2.5 mg tablet (Eliquis) 2.5 mg PO BID BLOOD THINNER 09/07/19 losartan 50 mg tablet 50 mg PO BID BP 06/19/22 atorvastatin 10 mg tablet 10 mg PO DAILY cholestrol 06/19/23 polyethylene glycol 3350 17 gram/dose oral powder (ClearLax) 17 g PO DAILY PRN bowels 06/19/23 metoprolol succinate 100 mg tablet,extended release 24 hr 50 mg (1/2 x 100 mg) PO DAILY blood pressure #30 tabs 06/29/23 pantoprazole 40 mg tablet,delayed release (Protonix) 40 mg PO BID GERD 30 days #60 tabs 06/29/23 ascorbic acid (vitamin C) 500 mg tablet 500 mg PO BIDCM #0 tabs 07/16/23 melatonin 3 mg tablet 3 mg PO QHS #0 tabs 07/16/23 menthol 0.44 %-zinc oxide 20.6 % topical ointment (Calmoseptine) 1 applic topical BID #0 grams 07/16/23 miconazole nitrate 2 % topical powder (Desenex) 1 applic topical BID #0 grams 07/16/23 nutrition tx glu intol,lac-free,soy-fiber 0.06 gram-1.2 kcal/mL liquid (Glucerna 1.2 Rojelio) 120 ml PO TIDCM #0 mL 07/16/23 polysaccharide iron complex 150 mg iron capsule (Ferrex) 150 mg PO BID #0 caps 07/16/23 potassium chloride 20 mEq tablet,extended release(part/cryst) (Klor-Con M) 20 meq PO TIDCM #0 tabs 07/16/23 sennosides 8.6 mg-docusate sodium 50 mg tablet (Stool Softener-Stimulant Laxative) 1 tab PO BID #0 tabs 07/16/23 Hospital Course Operations None Procedures None Summary of Care Provided Minutes Spent on Discharge: 35 Hospital Course: 87 year old female with below past medical history hospitalized for upper gastrointestinal bleed secondary to esophagitis, gastric ulcers, duodenal ulcers, complicated by acute blood loss anemia, acute kidney injury, urinary tract infection, admitted to TCU with debility, here for rehabilitation, strengthening, prior to discharge home alone. Discharge to [facility] 07/22/2023. Physical Exam Const alert General Appearance: cooperative HEENT normocephalic Eyes PERRL and EOMs intact bilaterally Neck supple, no JVD and no carotid bruits Resp normal respiratory effort, normal air movement and clear to auscultation bilaterally Cardio regular rate and regular rhythm GI normal to inspection, nondistended, normoactive bowel sounds, non-tender and non-distended Extremity normal capillary refill General Extremity: Negative for edema Skin no rashes or lesions noted General Skin Exam: no breakdown Psych affect normal Appearance: appropriate Medical Records Data Medical Nutrition Assessment Dietitian: Malnutrition Criteria Met Start: 07/06/23 14:32 Freq: Status: Active Protocol: Document 07/15/23 15:04 DAMIEN (Rec: 07/15/23 15:05 [facility] Desktop) Nutrition Malnutrition Evidence of Malnutrition Exists Yes Malnutrition (moderate): Acute Illness/Injury Evidenced By Suboptimal Energy Intake ( Moderate),Weight Loss ( Moderate) Intake Problem Inadequate Oral Intake Status Inactive Problem Clinical Problem Acute Disease or Injury Related Malnutrition Etiology related to acute illness and inadequate energy intake Signs/Symptoms as evidenced by po intake <75% of est nutritional needs and 5.5% wt loss x during res first week on TCU - PO intake improving and wt gain in past week noted. Status Active Problem Recommendation Dietitian Recommendations/Changes Continue liberalized diet of Regular d/t advanced age and decreased appetite Rec liberalize fluid restriction as medically able Continue magic cup ice cream w / lunch and dinner for increased nutrition if consumed. Will continue 4 oz glucerna shake tid w/ medpass for increased nutrition if consumed, but will adjust at time of follow up pending continued po intake/wt trends Weight / BMI Weight Weight: 59.024 kg Body Mass Index (BMI) 23.8 ABG / Lab / Microbiology Data 07/16/23 05:21 07/14/23 04:59 Laboratory: Laboratory Results - last 24 hr 07/16/23 05:21: Hgb 9.3 L, Hct 30.4 L 07/16/23 06:19: POC Glucose 235 H Microbiology: Microbiology 07/16/23 03:45 Nasal Secretion SARS-CoV-2 Antigen (Rapid) - Final 07/13/23 04:52 Nasal Secretion SARS-CoV-2 Antigen (Rapid) - Final 07/08/23 09:10 Urine Catheter - Catheter Urine Culture - Final Culture exhibits no growth. 07/08/23 14:05 Mucosa - Nasopharyngeal Respiratory Panel (PCR) - Final 07/08/23 14:00 Nasal Secretion SARS-CoV-2 Antigen (Rapid) - Final D/C Instructions Discharge Diet: No restrictions Discharge Activity: Return to Normal Activity, May Shower and Use Walker Weight Bearing Status: Weight bearing as tolerated Call your doctor if you observe: Fever of 101 or Higher, Inability to urinate, Inability to have a bowel movement, Shortness of breath, Dizziness, Fainting spells, Swelling in the ankles, Chest pain and Uncontrolled pain Additional Instructions: Discharge to [facility] 07/22/2023. Please Follow Up With: Pernell Lombardi, When: As scheduled. Meaningful Use Info Meaningful Use Diagnoses (Choose all that apply): None applicable Discharge Plan Admission Admit Date/Time: 06/29/23 15:13 Primary Reason for Your Visit: Debility. Attending Provider: Davide Chavira Chi Primary Care Provider: Ventura Baron Instructions Additional Instructions / Restrictions: Discharge to [facility] 07/22/2023. Discharge Orders/Prescriptions Prescriptions: New polysaccharide iron complex [Ferrex 150] 150 mg iron Capsule 150 mg PO BID Qty: 0 0RF sennosides-docusate sodium [Stool Softener-Stimulant Laxat] 8.6-50 mg Tablet 1 tab PO BID Qty: 0 0RF miconazole nitrate [Desenex] 2 % Powder 1 applic topical BID Qty: 0 0RF Protocol: *Topical Application Instructions APPLICATION INSTRUCTIONS: GROIN melatonin 3 mg Tablet 3 mg PO QHS Qty: 0 0RF potassium chloride [Klor-Con M20] 20 mEq Tablet,Er Particles/Crystals 20 meq PO TIDCM Qty: 0 0RF ascorbic acid (vitamin C) 500 mg Tablet 500 mg PO BIDCM Qty: 0 0RF Glucerna 1.2 Rojelio 0.06-1.2 gram-kcal/mL Liquid 120 ml PO TIDCM Qty: 0 0RF menthol-zinc oxide [Calmoseptine] 0.44-20.6 % Ointment 1 applic topical BID Qty: 0 0RF Protocol: *Topical Application Instructions APPLICATION INSTRUCTIONS: apply to bilateral buttocks Continued Eliquis 2.5 mg tablet 2.5 mg PO BID Hold Instructions: Resume on 07/03/23. amlodipine 10 MG tablet 10 mg PO DAILY Patient Comments: BLOOD PRESSURE/HEART losartan 50 mg tablet 50 mg PO BID Hold Instructions: Resume on 07/08/23. atorvastatin 10 mg tablet 10 mg PO DAILY polyethylene glycol 3350 [ClearLax] 17 gram/dose powder 17 g PO DAILY PRN (Reason: bowels) pantoprazole [Protonix] 40 mg tablet,delayed release (DR/EC) 40 mg PO BID 30 Days Qty: 60 0RF metoprolol succinate 100 mg Tablet Extended Release 24 Hr 50 mg PO DAILY Qty: 30 0RF Discontinued Jardiance 10 mg tablet 10 mg PO DAILY potassium chloride [Klor-Con M20] 20 mEq Tablet,Er Particles/Crystals 20 meq PO BIDCM Qty: 60 0RF ferrous sulfate 325 mg (65 mg iron) tablet 325 mg PO BID Qty: 60 0RF furosemide 40 mg tablet 40 mg PO BID Qty: 30 0RF Rx Instructions: Take 40 mg daily for 3 days then increase to home dose Referrals / Follow Up: Ventura Baron DO [Primary Care Provider] - Disposition Disposition (needs filled in before D/C Order can be placed): Assisted Living
--- NOTE | 2023-07-16 20:00 | TREXTCAR_ITS ---
Diet Diet Order/Speech Therapy: 07/01/23 12:58 Diet: Regular - General Type of Dietary Supplement:: Magic Cup Dessert Is pt able to select menu?: Yes Fluid restriction:: 2000 mL Diet Comments: jacques mc w/ lunch, van mc w/ dinner Routine Orders/Code Status Code Status: Full Code Wound(s) Left Forehead: Wound Type: Abrasion Therapies Weight Bearing: Weight bearing as tolerated Problem/Diagnosis (1) Debility: Status: Acute Code(s): R53.81 - Other malaise (2) Upper gastrointestinal bleed: Status: Acute Code(s): K92.2 - Gastrointestinal hemorrhage, unspecified (3) ANALISA (acute kidney injury): Status: Resolved Code(s): N17.9 - Acute kidney failure, unspecified (4) Acute blood loss anemia: Status: Acute Code(s): D62 - Acute posthemorrhagic anemia (5) Esophagitis: Status: Acute Code(s): K20.90 - Esophagitis, unspecified without bleeding (6) Gastric ulcer: Status: Acute Code(s): K25.9 - Gastric ulcer, unspecified as acute or chronic, without hemorrhage or perforation (7) Duodenal ulcer disease: Status: Acute Code(s): K26.9 - Duodenal ulcer, unspecified as acute or chronic, without hemorrhage or perforation (8) UTI (urinary tract infection): Status: Deleted Code(s): N39.0 - Urinary tract infection, site not specified (9) Diabetes mellitus: Status: Acute Code(s): E11.9 - Type 2 diabetes mellitus without complications (10) Chronic kidney disease, stage 3a: Status: Chronic Code(s): N18.31 - Chronic kidney disease, stage 3a (11) Heart failure with preserved ejection fraction: Status: Acute Code(s): I50.30 - Unspecified diastolic (congestive) heart failure (12) Atrial fibrillation: Status: Acute Code(s): I48.91 - Unspecified atrial fibrillation (13) Hypertension: Status: Chronic Code(s): I10 - Essential (primary) hypertension (14) Hyperlipidemia: Status: Chronic Code(s): E78.5 - Hyperlipidemia, unspecified Plan 87 year old female with below past medical history hospitalized for upper gastrointestinal bleed secondary to esophagitis, gastric ulcers, duodenal ulcers, complicated by acute blood loss anemia, acute kidney injury, urinary tract infection, admitted to TCU with debility, here for rehabilitation, strengthening, prior to discharge home alone. * Debility - PT/OT. * Cognition - ST. * Pain - Tylenol 1000mg q6 prn pain (1-10). * Bowel - Miralax 17gm daily prn, senna/colace 1 tablet bid, Magnesium citrate 300ml po daily prn. * Adult immunization - Administer pneumonia vaccine, covid vaccine, flu vaccine as appropriate. * DVT prophylaxis - on Eliquis. * Hypertension - Metoprolol succinate 50mg daily, Losartan 50mg bid, Amlodipine 10mg daily. * Atrial fibrillation - Metoprolol succinate 50mg daily, Eliquis 2.5mg bid. * Hyperlipidemia - Atorvastatin 10mg daily. * Diabetes Mellitus II - Jardiance 10mg daily. * Iron deficiency anemia - Ferrous sulfate 325mg bid. * Heart failure preserved ejection fraction - Metoprolol succinate 50mg daily, Losartan 50mg bid, Furosemide 80mg am, 40mg pm thru 07/02/2023, then Furosemide 40mg twice daily. * Gastric ulcer/Duodenal ulcers - Pantoprazole 40mg twice daily. * Hypokalemia - KCL ER 20meq bidcm. Allergies/Procedures Done in Hospital Allergies No Known Allergies Allergy (Verified 06/25/23 14:03) Procedures: None Type of Care/Length of Stay Estimated LOS: More Than 30 Days Type of Care Needed: Senior Care/Assisted Living Rehab Potential: Fair Prognosis: Fair Additional Orders/Day of Discharge Day of Discharge: 07/22/23 Dietary and Speech Recommendations Dietitian Recommendations/Changes: Continue liberalized diet of Regular d/t advanced age and decreased appetite Rec liberalize fluid restriction as medically able Continue magic cup ice cream w/ lunch and dinner for increased nutrition if consumed. Will continue 4 oz glucerna shake tid w/ medpass for increased nutrition if consumed, but will adjust at time of follow up pending continued po intake/wt trends Follow Up Care Please Follow Up With: Pernell Lombardi DO Please Follow Up With: Baltazar Melchor MD Discharge Plan Admission Admit Date/Time: 06/29/23 15:13 Primary Reason for Your Visit: Debility. Attending Provider: Davide Chavira Chi Primary Care Provider: Ventura Baron Instructions Additional Instructions / Restrictions: Discharge to [facility] 07/22/2023. Discharge Orders/Prescriptions Prescriptions: New polysaccharide iron complex [Ferrex 150] 150 mg iron Capsule 150 mg PO BID Qty: 0 0RF sennosides-docusate sodium [Stool Softener-Stimulant Laxat] 8.6-50 mg Tablet 1 tab PO BID Qty: 0 0RF miconazole nitrate [Desenex] 2 % Powder 1 applic topical BID Qty: 0 0RF Protocol: *Topical Application Instructions APPLICATION INSTRUCTIONS: GROIN melatonin 3 mg Tablet 3 mg PO QHS Qty: 0 0RF potassium chloride [Klor-Con M20] 20 mEq Tablet,Er Particles/Crystals 20 meq PO TIDCM Qty: 0 0RF ascorbic acid (vitamin C) 500 mg Tablet 500 mg PO BIDCM Qty: 0 0RF Glucerna 1.2 Rojelio 0.06-1.2 gram-kcal/mL Liquid 120 ml PO TIDCM Qty: 0 0RF menthol-zinc oxide [Calmoseptine] 0.44-20.6 % Ointment 1 applic topical BID Qty: 0 0RF Protocol: *Topical Application Instructions APPLICATION INSTRUCTIONS: apply to bilateral buttocks Continued Eliquis 2.5 mg tablet 2.5 mg PO BID Hold Instructions: Resume on 07/03/23. amlodipine 10 MG tablet 10 mg PO DAILY Patient Comments: BLOOD PRESSURE/HEART losartan 50 mg tablet 50 mg PO BID Hold Instructions: Resume on 07/08/23. atorvastatin 10 mg tablet 10 mg PO DAILY polyethylene glycol 3350 [ClearLax] 17 gram/dose powder 17 g PO DAILY PRN (Reason: bowels) pantoprazole [Protonix] 40 mg tablet,delayed release (DR/EC) 40 mg PO BID 30 Days Qty: 60 0RF metoprolol succinate 100 mg Tablet Extended Release 24 Hr 50 mg PO DAILY Qty: 30 0RF Discontinued Jardiance 10 mg tablet 10 mg PO DAILY potassium chloride [Klor-Con M20] 20 mEq Tablet,Er Particles/Crystals 20 meq PO BIDCM Qty: 60 0RF ferrous sulfate 325 mg (65 mg iron) tablet 325 mg PO BID Qty: 60 0RF furosemide 40 mg tablet 40 mg PO BID Qty: 30 0RF Rx Instructions: Take 40 mg daily for 3 days then increase to home dose Referrals / Follow Up: Ventura Baron DO [Primary Care Provider] - Disposition Disposition (needs filled in before D/C Order can be placed): Assisted Living (9) Diabetes mellitus Qualifiers: Diabetes mellitus type: type 2
[2023-07-16] MEDS: MELATONIN 3 MG TABLET PO (20:10)
[2023-07-17 06:48] LABS: Bedside Glucose 214 mg/dL (74-106)
[2023-07-17] MEDS: Potassium Chloride Oral Tablet 20 MEQ PO ×3 (09:00→16:32)
[2023-07-17] MEDS: Glucerna Shake 120 ML LIQUID PO ×3 (09:00→16:31)
[2023-07-17] MEDS: Ascorbic Acid 500 MG Tablet PO ×2 (09:03→16:32)
[2023-07-17] MEDS: Miconazole Nitrate 43 GM Bottle 1 APPLIC TOPICAL ×2 (09:03→20:33)
[2023-07-17] MEDS: Menthol/Lanolin/Calamine/Znox 113 GM Tube 1 APPLIC TOPICAL ×2 (09:03→20:33)
[2023-07-17] MEDS: Atorvastatin Calcium 10 MG Tablet PO (09:04)
[2023-07-17] MEDS: APIXABAN 2.5 MG TABLET (WCH) PO ×2 (09:04→20:31)
[2023-07-17] MEDS: Iron Polysaccharide Complex 150 MG CAPSULE PO ×2 (09:04→20:32)
[2023-07-17] MEDS: Losartan Potassium 50 MG Tablet PO ×2 (09:04→20:31)
[2023-07-17 09:05] VITALS: BP 123/55; PULSE 89
[2023-07-17] MEDS: amLODIPine 10 MG Tablet PO (09:05)
[2023-07-17] MEDS: Metoprolol(XL)Succ 100 MG Tablet 50 MG PO (09:05)
[2023-07-17] MEDS: Pantoprazole Sodium 40 MG Tablet PO ×2 (09:05→20:33)
[2023-07-17 09:19] VITALS: BP 123/55; PULSE 89
[2023-07-17 16:00] VITALS: BP 110/53; PULSE 80; RESP 16; TEMP 36.3; O2SAT 100
[2023-07-17 20:30] VITALS: O2SAT 94
[2023-07-17] MEDS: MELATONIN 3 MG TABLET PO (20:32)
[2023-07-18 06:00] VITALS: BMI 23.8
[2023-07-18 06:45] LABS: Bedside Glucose 240 mg/dL (74-106)
[2023-07-18 07:55] LABS: Hematocrit 29.1 % (37-47); Hemoglobin 9.1 g/dL (12.0-15.0)
[2023-07-18] MEDS: Potassium Chloride Oral Tablet 20 MEQ PO ×3 (08:30→17:28)
[2023-07-18] MEDS: Glucerna Shake 120 ML LIQUID PO ×3 (08:30→17:27)
[2023-07-18] MEDS: Ascorbic Acid 500 MG Tablet PO ×2 (08:37→17:28)
[2023-07-18] MEDS: Losartan Potassium 50 MG Tablet PO ×2 (08:37→22:41)
[2023-07-18] MEDS: Iron Polysaccharide Complex 150 MG CAPSULE PO ×2 (08:38→22:41)
[2023-07-18] MEDS: APIXABAN 2.5 MG TABLET (WCH) PO ×2 (08:38→22:41)
[2023-07-18 08:39] VITALS: BP 135/68; PULSE 89
[2023-07-18] MEDS: Atorvastatin Calcium 10 MG Tablet PO (08:39)
[2023-07-18] MEDS: Metoprolol(XL)Succ 100 MG Tablet 50 MG PO (08:39)
[2023-07-18] MEDS: amLODIPine 10 MG Tablet PO (08:40)
[2023-07-18] MEDS: Pantoprazole Sodium 40 MG Tablet PO ×2 (08:40→22:41)
[2023-07-18] MEDS: Menthol/Lanolin/Calamine/Znox 113 GM Tube 1 APPLIC TOPICAL ×2 (08:41→22:42)
[2023-07-18] MEDS: Miconazole Nitrate 43 GM Bottle 1 APPLIC TOPICAL ×2 (08:43→22:42)
[2023-07-18 08:49] VITALS: RESP 18; O2SAT 98
[2023-07-18 14:07] VITALS: BP 102/49; PULSE 84; RESP 16; TEMP 36.3; O2SAT 100
[2023-07-18 22:40] VITALS: BP 132/63; PULSE 92
[2023-07-18] MEDS: MELATONIN 3 MG TABLET PO (22:41)
[2023-07-19 06:00] VITALS: BMI 23.8
[2023-07-19 06:46] LABS: Bedside Glucose 243 mg/dL (74-106)
[2023-07-19 07:50] VITALS: BP 118/74; PULSE 93; RESP 18; O2SAT 98
[2023-07-19] MEDS: Losartan Potassium 50 MG Tablet PO ×2 (07:52→20:52)
[2023-07-19] MEDS: Ascorbic Acid 500 MG Tablet PO ×2 (07:52→17:02)
[2023-07-19] MEDS: Glucerna Shake 120 ML LIQUID PO ×3 (07:52→17:03)
[2023-07-19] MEDS: Potassium Chloride Oral Tablet 20 MEQ PO ×3 (07:52→17:02)
[2023-07-19] MEDS: Iron Polysaccharide Complex 150 MG CAPSULE PO ×2 (07:53→20:52)
[2023-07-19] MEDS: Atorvastatin Calcium 10 MG Tablet PO (07:53)
[2023-07-19] MEDS: amLODIPine 10 MG Tablet PO (07:53)
[2023-07-19] MEDS: APIXABAN 2.5 MG TABLET (WCH) PO ×2 (07:53→20:52)
[2023-07-19 07:54] VITALS: PULSE 83
[2023-07-19] MEDS: Metoprolol(XL)Succ 100 MG Tablet 50 MG PO (07:54)
[2023-07-19] MEDS: Pantoprazole Sodium 40 MG Tablet PO ×2 (07:54→20:52)
[2023-07-19] MEDS: Miconazole Nitrate 43 GM Bottle 1 APPLIC TOPICAL ×2 (08:01→20:52)
[2023-07-19] MEDS: Menthol/Lanolin/Calamine/Znox 113 GM Tube 1 APPLIC TOPICAL ×2 (08:01→20:52)
[2023-07-19 14:17] VITALS: BP 144/61; PULSE 93; RESP 16; TEMP 36.2; O2SAT 98
[2023-07-19] MEDS: Senna/Docusate Sodium 1 Tablet PO (20:52)
[2023-07-19] MEDS: MELATONIN 3 MG TABLET PO (20:52)
[2023-07-19 20:55] VITALS: PULSE 104; RESP 16; O2SAT 96
[2023-07-20 05:53] LABS: Hematocrit 32.5 % (37-47); Hemoglobin 10.5 g/dL (12.0-15.0)
[2023-07-20 06:00] VITALS: BMI 23.8
[2023-07-20 06:29] LABS: Bedside Glucose 277 mg/dL (74-106)
[2023-07-20 06:55] VITALS: PULSE 72; RESP 18; O2SAT 97
[2023-07-20] MEDS: Glucerna Shake 120 ML LIQUID PO ×3 (09:03→16:53)
[2023-07-20] MEDS: Potassium Chloride Oral Tablet 20 MEQ PO ×3 (09:04→16:52)
[2023-07-20] MEDS: Ascorbic Acid 500 MG Tablet PO ×2 (09:04→16:52)
[2023-07-20] MEDS: Losartan Potassium 50 MG Tablet PO ×2 (09:04→21:07)
[2023-07-20] MEDS: APIXABAN 2.5 MG TABLET (WCH) PO ×2 (09:05→21:07)
[2023-07-20] MEDS: Pantoprazole Sodium 40 MG Tablet PO ×2 (09:05→21:07)
[2023-07-20] MEDS: Atorvastatin Calcium 10 MG Tablet PO (09:05)
[2023-07-20] MEDS: Iron Polysaccharide Complex 150 MG CAPSULE PO ×2 (09:05→21:07)
[2023-07-20 09:06] VITALS: BP 119/55; PULSE 91
[2023-07-20] MEDS: Senna/Docusate Sodium 1 Tablet PO ×2 (09:06→21:07)
[2023-07-20] MEDS: Metoprolol(XL)Succ 100 MG Tablet 50 MG PO (09:06)
[2023-07-20] MEDS: amLODIPine 10 MG Tablet PO (09:12)
[2023-07-20] MEDS: Menthol/Lanolin/Calamine/Znox 113 GM Tube 1 APPLIC TOPICAL ×2 (09:13→21:10)
[2023-07-20] MEDS: Miconazole Nitrate 43 GM Bottle 1 APPLIC TOPICAL ×2 (09:15→21:10)
[2023-07-20 09:19] VITALS: BP 119/55; PULSE 91
[2023-07-20 14:47] VITALS: BP 125/67; PULSE 93; RESP 16; TEMP 36.1; O2SAT 95
--- NOTE | 2023-07-20 15:06 | CASEMGMT ---
Social Work JANEL spoke with Kacie at [facility] and confirmed pt is ready to DC 07/22. Kacie is waiting on family to complete a questionnaire prior to DC. JANEL offered to reiterate to son when she speaks to him. JANEL confirmed with Kacie that [place] coordinates [facility] through [facility] once the pt admits. JANEL left with son to confirm DC date and to contact Kacie to complete questionnaire. Plan: DC 07/22 to [facility], [facility] PT/OT/ST Yuliya Valdivia MSW [employer] OPERATOR
[2023-07-20] MEDS: Acetaminophen 500 MG Tablet 1000 MG PO (16:57)
[2023-07-20] MEDS: MELATONIN 3 MG TABLET PO (21:07)
[2023-07-21 05:51] LABS: Absolute Lymphocyte Count 1.48 X10^3/uL (0.83-4.51); Absolute Neutrophil Count 2.9 X10^3/uL (2.0-7.7); Basophil# 0.04 X10^3/uL; Basophil% 0.7 % (0-1); Eosinophil# 0.22 X10^3/uL; Eosinophils% 4.1 % (0-5); Hematocrit 32.3 % (37-47); Hemoglobin 10.2 g/dL (12.0-15.0); Lymphocyte # 1.48 X10^3/ul (0.83-4.51); Lymphocyte % 27.4 % (19-41); Mean Corp Hgb Conc 31.6 g/dL (32-36); Mean Corpuscular Hgb 30.9 pg (27.0-32.0); Mean Corpuscular Volume 97.9 fL (81-99); Mean Platelet Vol. 9.6 fl (6.2-12.0); Monocyte# 0.75 X10^3/uL; Monocyte% 13.9 % (0-10); NRBC Flagged by Analyzer 0 % (0-5); Neutrophil % 53.5 % (47-70); Platelet Count 196 K/mm3 (150-450); RBC Distribution Width CV 16.4 % (11.6-14.6); RBC Distribution Width SD 59.2 fl (35.1-43.9); White Blood Count 5.4 K/mm3 (4.4-11.0)
[2023-07-21 06:00] VITALS: BMI 24.2
[2023-07-21 06:10] LABS: Anion Gap 6 (5-15); BUN 43 mg/dL (7-18); BUN/Creat Ratio 27.9 RATIO (10-20); Calcium,Total 8.8 mg/dL (8.5-10.1); Chloride 109 mmol/L (98-107); Creatinine, Serum 1.54 mg/dL (0.55-1.02); EST Glomerular Filtration Rate 34 mL/min (>60); Est Glom Filt Rate - Afr Amer 41 mL/min (>60); Estimated Creatinine Clearance 19.97 ml/min; Glucose 295 mg/dL (74-106); Potassium 5.2 mmol/L (3.5-5.1); Sodium Level 137 mmol/L (136-145)
[2023-07-21 06:33] LABS: Bedside Glucose 257 mg/dL (74-106)
[2023-07-21] MEDS: Losartan Potassium 50 MG Tablet PO ×2 (08:44→20:17)
[2023-07-21] MEDS: Ascorbic Acid 500 MG Tablet PO ×2 (08:44→17:09)
[2023-07-21] MEDS: Iron Polysaccharide Complex 150 MG CAPSULE PO ×2 (08:45→20:17)
[2023-07-21] MEDS: APIXABAN 2.5 MG TABLET (WCH) PO ×2 (08:45→20:17)
[2023-07-21] MEDS: Atorvastatin Calcium 10 MG Tablet PO (08:46)
[2023-07-21] MEDS: Pantoprazole Sodium 40 MG Tablet PO ×2 (08:46→20:17)
[2023-07-21] MEDS: Senna/Docusate Sodium 1 Tablet PO (08:46)
[2023-07-21] MEDS: amLODIPine 10 MG Tablet PO (08:46)
[2023-07-21 08:47] VITALS: BP 136/64; PULSE 91
[2023-07-21] MEDS: Metoprolol(XL)Succ 100 MG Tablet 50 MG PO (08:47)
[2023-07-21] MEDS: Glucerna Shake 120 ML LIQUID PO ×3 (08:48→17:08)
[2023-07-21] MEDS: Menthol/Lanolin/Calamine/Znox 113 GM Tube 1 APPLIC TOPICAL ×2 (08:51→20:18)
[2023-07-21] MEDS: Miconazole Nitrate 43 GM Bottle 1 APPLIC TOPICAL ×2 (08:52→20:17)
[2023-07-21 08:55] VITALS: BP 136/64; PULSE 91
[2023-07-21] MEDS: Sodium Polystyrene Sulfonate 15 GM/60 ML UDC PO (10:32)
--- NOTE | 2023-07-21 10:44 | NURSING ---
Addendum entered by Slava Lindo 07/21/23 17:04: PT HAD POSITIVE RESULTS FROM THE [facility]. Original Note: PT POTASSIUM 5.2. PRE ORDER [facility] GIVEN.
[2023-07-21 14:46] VITALS: BMI 24.2
[2023-07-21 16:00] VITALS: BP 115/58; PULSE 99; RESP 16; TEMP 36.2; O2SAT 100
[2023-07-21 20:14] VITALS: BP 118/54; PULSE 90
[2023-07-21] MEDS: MELATONIN 3 MG TABLET PO (20:17)
[2023-07-22 06:32] LABS: Anion Gap 6 (5-15); BUN 37 mg/dL (7-18); BUN/Creat Ratio 26.4 RATIO (10-20); Calcium,Total 8.6 mg/dL (8.5-10.1); Chloride 110 mmol/L (98-107); EST Glomerular Filtration Rate 38 mL/min (>60); Est Glom Filt Rate - Afr Amer 46 mL/min (>60); Estimated Creatinine Clearance 21.97 ml/min; Glucose 244 mg/dL (74-106); Potassium 4.5 mmol/L (3.5-5.1); Sodium Level 138 mmol/L (136-145)
[2023-07-22 06:37] LABS: Bedside Glucose 228 mg/dL (74-106)
[2023-07-22] MEDS: Glucerna Shake 120 ML LIQUID PO ×3 (07:43→16:03)
[2023-07-22] MEDS: Iron Polysaccharide Complex 150 MG CAPSULE PO ×2 (07:44→20:00)
[2023-07-22] MEDS: Ascorbic Acid 500 MG Tablet PO ×2 (07:44→16:03)
[2023-07-22] MEDS: Menthol/Lanolin/Calamine/Znox 113 GM Tube 1 APPLIC TOPICAL ×2 (07:44→20:02)
[2023-07-22] MEDS: APIXABAN 2.5 MG TABLET (WCH) PO ×2 (07:44→20:00)
[2023-07-22] MEDS: Miconazole Nitrate 43 GM Bottle 1 APPLIC TOPICAL ×2 (07:45→20:02)
[2023-07-22] MEDS: Losartan Potassium 50 MG Tablet PO ×2 (07:45→20:00)
[2023-07-22 07:46] VITALS: BP 153/69; PULSE 96
[2023-07-22] MEDS: amLODIPine 10 MG Tablet PO (07:46)
[2023-07-22] MEDS: Pantoprazole Sodium 40 MG Tablet PO ×2 (07:46→20:00)
[2023-07-22] MEDS: Metoprolol(XL)Succ 100 MG Tablet 50 MG PO (07:46)
[2023-07-22] MEDS: Atorvastatin Calcium 10 MG Tablet PO (07:46)
--- NOTE | 2023-07-22 14:20 | CASEMGMT ---
Social Work JANEL received voicemail from son, Chalo, on 07/21 at 2034 stating pt is unable to discharge 07/22 as planned and asking for a favor from this worker. However, did not provide explanation. The son indicated he will be unable for a return call on 07/22 and to contact brother, Den. JANEL phoned son Den to receive explanation. Son immediately became upset and raised his voice to this worker stating that since this worker interfered with the signing on the legal documents prior, the funds are unable to be accessed by the son's until 07/24, again reiterating this worker should be cooperative and to do pt a favor. SW requested son to lower voice to appropriately engage in conversation. Reminded son that this worker does not make the final decisions on DC dates and if Medicare will cover the additional two days. SW attempted to ask more clarifying questions as to why the extension is needed and how that decision is being made on the day of DC. Son vaguely explained the funds cannot be accessed, a [employer] cannot be rented thus furniture cannot be moved into the apartment. Son remained speaking to this worker with a raised voice. SW stated will discuss with Mary and SUMAN and will call son back. JANEL phoned Kacie at [facility] to inquire about status on DC. Kacie stated she can still accept pt as planned, she has a hospital bed to provide the pt, but no other furniture available. Kacie did state she does not have a check yet or questionnaire signed, which she needs a valid check at the time of arrival. JANEL received call from [place] , apologizing for which the manner Den spoke to this worker, stating the son's have been very emotional with this whole process. SANTINO was able to further explain that when pt's he left the finances in turmoil and it has been difficult to work through, but assured this worker, the family has been diligent about accessing the funds in preparation for pt's planned DC. However, the funds are not going to be available until morning of 07/24. JANEL expressed appreciation for phone call, apology and explanation. JANEL reiterated this worker does not decide on Medicare approval for the other two days, however, pt can remain in TCU since she cannot admit to [facility]. SANTINO stated she is aware of that and if pt needs to pay privately for the remaining two days, that can happen on Thursday. SW to follow up with IDT on coverage and will contact DIL with outcome. JANEL collaborated with Sales Department Manager of [facility] and Director of TCU. Director noted that pt can continue under Medicare coverage for PT/OT/ST/SN. JANEL phoned DIL and updated that pt does not need to pay privately. SANTINO expressed great appreciation and understanding to the situation. JANEL left VM with Kacie at [facility] to update on new DC for 07/24. Family to transport at [phone]. IDT updated. Plan: DC to [facility] 07/24 AARON Dan MEDICAL LIBRARIAN
[2023-07-22 16:00] VITALS: BP 104/56; PULSE 90; RESP 14; TEMP 36.1; O2SAT 99
[2023-07-22] MEDS: MELATONIN 3 MG TABLET PO (20:00)
[2023-07-23 06:00] VITALS: BMI 24.3
[2023-07-23 06:52] LABS: Bedside Glucose 233 mg/dL (74-106)
[2023-07-23] MEDS: Glucerna Shake 120 ML LIQUID PO ×3 (08:39→18:27)
[2023-07-23 08:40] VITALS: PULSE 60
[2023-07-23] MEDS: Atorvastatin Calcium 10 MG Tablet PO (08:40)
[2023-07-23] MEDS: Losartan Potassium 50 MG Tablet PO ×2 (08:40→20:04)
[2023-07-23] MEDS: Ascorbic Acid 500 MG Tablet PO ×2 (08:40→18:27)
[2023-07-23] MEDS: Iron Polysaccharide Complex 150 MG CAPSULE PO ×2 (08:40→20:05)
[2023-07-23] MEDS: Pantoprazole Sodium 40 MG Tablet PO ×2 (08:40→20:05)
[2023-07-23] MEDS: APIXABAN 2.5 MG TABLET (WCH) PO ×2 (08:40→20:04)
[2023-07-23] MEDS: amLODIPine 10 MG Tablet PO (08:40)
[2023-07-23] MEDS: Metoprolol(XL)Succ 100 MG Tablet 50 MG PO (08:40)
[2023-07-23] MEDS: Menthol/Lanolin/Calamine/Znox 113 GM Tube 1 APPLIC TOPICAL ×2 (08:48→20:07)
[2023-07-23] MEDS: Miconazole Nitrate 43 GM Bottle 1 APPLIC TOPICAL ×2 (08:48→20:07)
--- NOTE | 2023-07-23 13:50 | MDS.RN ---
MDS pain interview complete.
[2023-07-23 14:30] VITALS: BP 115/57; PULSE 90; RESP 16; TEMP 36.1; O2SAT 100
[2023-07-23] MEDS: MELATONIN 3 MG TABLET PO (20:05)
[2023-07-23] MEDS: Senna/Docusate Sodium 1 Tablet PO (20:05)
[2023-07-23 20:14] VITALS: O2SAT 94
[2023-07-24] MEDS: Glucerna Shake 120 ML LIQUID PO (06:11)
[2023-07-24] MEDS: Ascorbic Acid 500 MG Tablet PO (06:11)
[2023-07-24 06:13] VITALS: BP 126/57; PULSE 91; RESP 16; TEMP 37.1; O2SAT 98
[2023-07-24 06:26] VITALS: O2SAT 98
[2023-07-24 06:41] LABS: Bedside Glucose 258 mg/dL (74-106)
[2023-07-24 07:36] VITALS: BP 140/67; PULSE 91; RESP 18; TEMP 37.2; O2SAT 98
[2023-07-24 07:37] VITALS: PULSE 91
[2023-07-24] MEDS: Metoprolol(XL)Succ 100 MG Tablet 50 MG PO (07:37)
[2023-07-24] MEDS: Pantoprazole Sodium 40 MG Tablet PO (07:37)
[2023-07-24] MEDS: Senna/Docusate Sodium 1 Tablet PO (07:37)
[2023-07-24] MEDS: Iron Polysaccharide Complex 150 MG CAPSULE PO (07:38)
[2023-07-24] MEDS: Atorvastatin Calcium 10 MG Tablet PO (07:38)
[2023-07-24] MEDS: amLODIPine 10 MG Tablet PO (07:38)
[2023-07-24] MEDS: Losartan Potassium 50 MG Tablet PO (07:38)
[2023-07-24] MEDS: APIXABAN 2.5 MG TABLET (WCH) PO (07:38)
[2023-07-24] MEDS: Menthol/Lanolin/Calamine/Znox 113 GM Tube 1 APPLIC TOPICAL (07:39)
[2023-07-24] MEDS: Miconazole Nitrate 43 GM Bottle 1 APPLIC TOPICAL (07:39)
[2023-07-24 08:21] VITALS: BP 116/57; PULSE 97; RESP 18; TEMP 37.2; O2SAT 98
--- NOTE | 2023-07-24 08:52 | NURSING ---
Called report to nurse at [facility], report given.
== END 2023-07-24 08:15 | disposition home or self-care (01) | DRG 369 ==
PROVIDERS: Admitting Provider Family Medicine Geriatric Medicine; PCP Family Medicine; Referring Provider Family Medicine Geriatric Medicine; Visit Provider Family Medicine Geriatric Medicine
DX: K20.91 Esophagitis, unspecified with bleeding (principal); I13.0 Hypertensive heart and chronic kidney disease with heart failure and stage 1 through stage 4 chronic kidney disease, or unspecified chronic kidney disease; N39.0 Urinary tract infection, site not specified; I50.42 Chronic combined systolic (congestive) and diastolic (congestive) heart failure; K26.9 Duodenal ulcer, unspecified as acute or chronic, without hemorrhage or perforation; E11.22 Type 2 diabetes mellitus with diabetic chronic kidney disease; D50.9 Iron deficiency anemia, unspecified; B96.20 Unspecified Escherichia coli [E. coli] as the cause of diseases classified elsewhere; N18.31 Chronic kidney disease, stage 3a; I48.0 Paroxysmal atrial fibrillation; E78.5 Hyperlipidemia, unspecified; I25.10 Atherosclerotic heart disease of native coronary artery without angina pectoris; I25.5 Ischemic cardiomyopathy; E87.6 Hypokalemia; Z79.01 Long term (current) use of anticoagulants; Z79.899 Other long term (current) drug therapy; K25.9 Gastric ulcer, unspecified as acute or chronic, without hemorrhage or perforation; G47.00 Insomnia, unspecified; S83.206D Unspecified tear of unspecified meniscus, current injury, right knee, subsequent encounter; X58.XXXD Exposure to other specified factors, subsequent encounter
CPT/HCPCS: 36415; 71046; 80048; 81001; 82962; 83036; 85014; 85018; 85025; 87086; 87426; 87633; 87811; 92507; 92523; 94668; 97110; 97116; 97129; 97130; 97162; 97166; 97530; 97535; 97802; J7030; A4216

== ENCOUNTER → 2023-07-03 | Outpatient (CLI) | payer MEDICARE, OTHER, SELFPAY ==
--- NOTE | 2023-07-03 10:00 | MRI_ITS ---
STUDY: MRI RIGHT KNEE REASON FOR EXAM: Female, 87 years old. Knee pain TECHNIQUE: Standardized fat and water weighted pulse sequences were obtained in all 3 orthogonal planes. COMPARISON: X-ray 06/26/2023 FINDINGS: 2 cm trizonal flap tear of the posterior horn and posterior body the medial meniscus. There is diffuse, full thickness articular cartilage loss of the medial femorotibial compartment. 1 cm grade 3 osteochondral lesion of the weightbearing medial femoral condyle with surrounding severe edema. Normal medial collateral ligamentous complex (MCL). Normal distal semimembranosus, gracilis and semitendinosus tendons. Normal lateral meniscus. Normal hyaline cartilage of the lateral femorotibial compartment. Normal lateral femoral condyle and tibial plateau. Normal proximal tibiofibular articulation. Normal lateral collateral (fibular) ligament. Normal popliteus tendon. Normal biceps femoris tendon. Normal anterior cruciate ligament (ACL). Normal posterior cruciate ligament (PCL). Normal congruent patellofemoral articulation. Normal hyaline cartilage of the patellofemoral compartment. Normal medial and lateral patellar retinaculum. Normal quadriceps tendon. Normal patellar tendon. Normal Hoffa''s fat pad. There is a small volume joint effusion. Moderate prepatellar bursitis. The soft tissues are unremarkable. The otherwise visualized osseous structures are unremarkable. MRI/Lower Ext Joint Only (Routine) IMPRESSION: 1. 1 cm grade 3 osteochondral lesion of the weightbearing medial femoral condyle with surrounding severe edema. 2. 2 cm trizonal flap tear of the posterior horn and posterior body the medial meniscus with some full-thickness chondral loss of the medial femoral condyle and medial tibial plateau. 3. Small joint effusion. 4. Moderate prepatellar bursitis. Electronically Signed: Sánchez Cruz MD at 20:19 EST ,
== END | disposition home or self-care (01) ==
PROVIDERS: PCP Family Medicine; Referring Provider Family Medicine Geriatric Medicine; Visit Provider Family Medicine Geriatric Medicine
DX: D16.21 Benign neoplasm of long bones of right lower limb (principal)
CPT/HCPCS: 73721